=== PATIENT | female | born 1965 | race Asian ===

== ENCOUNTER 2023-01-01 07:42 | Outpatient (OUT) | payer OTHER, SELFPAY ==
[2023-01-01 08:12] LABS: Basophils Absolute Auto 0.1 10^3/uL (0.0-0.1); Basophils Percent Auto 0.7 % (0.2-2.0); Eosinophils Absolute Auto 0.2 10^3/uL (0.0-0.7); Eosinophils Percent Auto 3.3 % (0.9-7.0); Hematocrit 38.3 % (36.0-48.0); Hemoglobin 12.9 g/dL (12.0-16.0); Immature Granulocytes Abs Auto 0.02 10^3/uL (0.00-0.03); Immature Granulocytes Pct Auto 0.3 % (0.0-0.5); Lymphocytes Absolute Auto 2.2 10^3/uL (1.2-3.8); Lymphocytes Percent Auto 32.2 % (20.5-60.0); Mean Corpuscular HGB Conc 33.7 g/dL (29.9-35.2); Mean Corpuscular Hemoglobin 28.5 pg (26.7-34.0); Mean Corpuscular Volume 84.5 fL (81.0-99.0); Mean Platelet Volume 10.2 fL (9.5-13.5); Monocytes Absolute Auto 0.7 10^3/uL (0.3-0.8); Monocytes Percent Auto 10.6 % (1.7-12.0); Neutrophils Absolute Auto 3.6 10^3/uL (1.4-6.5); Neutrophils Percent Auto 52.9 % (43.0-75.0); Platelet Count 297 10^3/uL (150-450); Red Blood Count 4.53 10^6/uL (4.20-5.40); Red Cell Distribution Width 13.3 % (11.0-15.0); White Blood Count 6.7 10^3/uL (4.0-11.0)
[2023-01-01 08:31] LABS: Erythrocyte Sedimentation Rate 16 mm/hr (<=30)
[2023-01-01 08:58] LABS: Alanine Aminotransferase 21 U/L (14-59); Albumin Globulin Ratio 0.9; Albumin Level 3.7 g/dL (3.4-5.0); Alkaline Phosphatase 125 U/L (46-116); Aspartate Amino Transferase 22 U/L (15-37); Bilirubin Direct 0.1 mg/dL (0.0-0.2); Bilirubin Total 0.2 mg/dL (0.2-1.0); Estimated GFR (African America 59 (>=60); Estimated GFR (Non-African Ame 49 (>=60); Total Protein 7.7 g/dL (6.4-8.2)
== END 2023-01-01 07:43 ==
LOC: LAB 07:47
PROVIDERS: PCP Family Medicine
DX: M05.79 Rheumatoid arthritis with rheumatoid factor of multiple sites without organ or systems involvement (principal); Z79.899 Other long term (current) drug therapy
CPT/HCPCS: 36415; 80076; 82565; 85025; 85652

== ENCOUNTER 2023-01-28 07:48 | Outpatient (OUT) | payer OTHER, SELFPAY ==
--- NOTE | 2023-01-28 07:52 | US_ITS ---
The [address] [address] Patient Name: SYLVIA MCCRARY MRN: [id number] date: 1965 Sex: F Assigned Patient Location: US Current Patient Location: US Accession/Order Number: [id number] Exam Date: 01/28/2023 08:00 Report Date: 01/28/2023 10:46 At the request of: KEHINDE PACHECO Procedure: US renal BI EXAMINATION: US renal BI HISTORY: Overactive Bladder N32.81 COMPARISON: No relevant comparison available. TECHNIQUE: Ultrasound examination was performed of the kidneys and urinary bladder. FINDINGS: RIGHT KIDNEY: No evidence of pelvocaliectasis, mass, or calculi. Normal renal cortical parenchymal echogenicity. Color Doppler demonstrates blood flow within the kidney. Kidney: 9.9 x 4.2 x 4.4 cm LEFT KIDNEY: No evidence of pelvocaliectasis, mass, or calculi. Normal renal cortical parenchymal echogenicity. Color Doppler demonstrates blood flow within the kidney. Kidney: 8.7 x 4.3 x 5.2 cm BLADDER: No visible wall thickening, mass, or calculi. IMPRESSION: 1. Normal ultrasound appearance of the kidneys and urinary bladder. No specific findings to account for patient's symptoms. Electronically authenticated by: ORLIN PANTOJA Date: 01/28/2023 10:46
== END 2023-01-28 07:49 | disposition home or self-care (01) ==
LOC: US 07:48
PROVIDERS: PCP Family Medicine; Visit Provider Urology
DX: N32.81 Overactive bladder (principal); R39.14 Feeling of incomplete bladder emptying
CPT/HCPCS: 76775

== ENCOUNTER 2023-02-26 07:40 | Outpatient (OUT) | payer OTHER, SELFPAY ==
[2023-02-26 08:08] LABS: Basophils Absolute Auto 0.1 10^3/uL (0.0-0.1); Basophils Percent Auto 0.8 % (0.2-2.0); Eosinophils Absolute Auto 0.4 10^3/uL (0.0-0.7); Eosinophils Percent Auto 3.9 % (0.9-7.0); Hematocrit 35.8 % (36.0-48.0); Hemoglobin 12.1 g/dL (12.0-16.0); Immature Granulocytes Abs Auto 0.03 10^3/uL (0.00-0.03); Immature Granulocytes Pct Auto 0.3 % (0.0-0.5); Lymphocytes Absolute Auto 2.5 10^3/uL (1.2-3.8); Lymphocytes Percent Auto 27.9 % (20.5-60.0); Mean Corpuscular HGB Conc 33.8 g/dL (29.9-35.2); Mean Corpuscular Hemoglobin 28.6 pg (26.7-34.0); Mean Corpuscular Volume 84.6 fL (81.0-99.0); Mean Platelet Volume 10.1 fL (9.5-13.5); Monocytes Percent Auto 11.3 % (1.7-12.0); Neutrophils Percent Auto 55.8 % (43.0-75.0); Platelet Count 266 10^3/uL (150-450); Red Blood Count 4.23 10^6/uL (4.20-5.40); White Blood Count 8.9 10^3/uL (4.0-11.0)
[2023-02-26 08:20] LABS: Erythrocyte Sedimentation Rate 15 mm/hr (<=30)
[2023-02-26 08:29] LABS: Alanine Aminotransferase 19 U/L (14-59); Albumin Level 3.6 g/dL (3.4-5.0); Alkaline Phosphatase 124 U/L (46-116); Aspartate Amino Transferase 13 U/L (15-37); Bilirubin Direct 0.1 mg/dL (0.0-0.2); Bilirubin Total 0.2 mg/dL (0.2-1.0); Estimated GFR (African America 55 (>=60); Estimated GFR (Non-African Ame 46 (>=60); Globulin 3.5 g/dL; Total Protein 7.1 g/dL (6.4-8.2)
== END 2023-02-26 07:41 | disposition home or self-care (01) ==
PROVIDERS: PCP Family Medicine; Visit Provider Internal Medicine Rheumatology
DX: M05.79 Rheumatoid arthritis with rheumatoid factor of multiple sites without organ or systems involvement (principal); Z79.899 Other long term (current) drug therapy
CPT/HCPCS: 36415; 80076; 82565; 85025; 85652

== ENCOUNTER 2023-04-30 07:43 | Outpatient (OUT) | payer OTHER, SELFPAY ==
[2023-04-30 08:18] LABS: Basophils Absolute Auto 0.1 10^3/uL (0.0-0.1); Basophils Percent Auto 0.8 % (0.2-2.0); Eosinophils Absolute Auto 0.3 10^3/uL (0.0-0.7); Eosinophils Percent Auto 2.5 % (0.9-7.0); Immature Granulocytes Abs Auto 0.03 10^3/uL (0.00-0.03); Immature Granulocytes Pct Auto 0.3 % (0.0-0.5); Lymphocytes Absolute Auto 2.9 10^3/uL (1.2-3.8); Lymphocytes Percent Auto 28.4 % (20.5-60.0); Mean Corpuscular HGB Conc 33.3 g/dL (29.9-35.2); Mean Corpuscular Volume 87.1 fL (81.0-99.0); Mean Platelet Volume 10.2 fL (9.5-13.5); Monocytes Absolute Auto 0.9 10^3/uL (0.3-0.8); Monocytes Percent Auto 8.5 % (1.7-12.0); Neutrophils Absolute Auto 6.1 10^3/uL (1.4-6.5); Neutrophils Percent Auto 59.5 % (43.0-75.0); Platelet Count 318 10^3/uL (150-450); Red Blood Count 4.48 10^6/uL (4.20-5.40); White Blood Count 10.2 10^3/uL (4.0-11.0)
[2023-04-30 08:31] LABS: Erythrocyte Sedimentation Rate 17 mm/hr (<=30)
[2023-04-30 08:35] LABS: Alanine Aminotransferase 16 U/L (14-59); Albumin Level 3.7 g/dL (3.4-5.0); Alkaline Phosphatase 123 U/L (46-116); Aspartate Amino Transferase 26 U/L (15-37); Bilirubin Direct <0.1 mg/dL (0.0-0.2); Bilirubin Total 0.3 mg/dL (0.2-1.0); Estimated GFR (African America >60 (>=60); Estimated GFR (Non-African Ame 51 (>=60); Globulin 3.8 g/dL; Total Protein 7.5 g/dL (6.4-8.2)
== END 2023-04-30 07:44 | disposition home or self-care (01) ==
LOC: LAB 07:46
PROVIDERS: PCP Family Medicine; Visit Provider Internal Medicine Rheumatology
DX: M05.79 Rheumatoid arthritis with rheumatoid factor of multiple sites without organ or systems involvement (principal); Z79.899 Other long term (current) drug therapy
CPT/HCPCS: 36415; 80076; 82565; 85025; 85652

== ENCOUNTER 2023-07-02 07:35 | Outpatient (OUT) | payer OTHER, SELFPAY ==
[2023-07-02 08:00] LABS: Basophils Absolute Auto 0.1 10^3/uL (0.0-0.1); Basophils Percent Auto 0.9 % (0.2-2.0); Eosinophils Absolute Auto 0.3 10^3/uL (0.0-0.7); Eosinophils Percent Auto 3.3 % (0.9-7.0); Hematocrit 38.3 % (36.0-48.0); Hemoglobin 12.5 g/dL (12.0-16.0); Immature Granulocytes Abs Auto 0.01 10^3/uL (0.00-0.03); Immature Granulocytes Pct Auto 0.1 % (0.0-0.5); Lymphocytes Absolute Auto 2.6 10^3/uL (1.2-3.8); Lymphocytes Percent Auto 29.6 % (20.5-60.0); Mean Corpuscular HGB Conc 32.6 g/dL (29.9-35.2); Mean Corpuscular Hemoglobin 28.4 pg (26.7-34.0); Mean Platelet Volume 10.4 fL (9.5-13.5); Monocytes Absolute Auto 0.8 10^3/uL (0.3-0.8); Monocytes Percent Auto 9.5 % (1.7-12.0); Neutrophils Absolute Auto 4.9 10^3/uL (1.4-6.5); Neutrophils Percent Auto 56.6 % (43.0-75.0); Platelet Count 287 10^3/uL (150-450); Red Cell Distribution Width 13.7 % (11.0-15.0); White Blood Count 8.7 10^3/uL (4.0-11.0)
[2023-07-02 08:26] LABS: Alanine Aminotransferase 17 U/L (14-59); Albumin Level 3.7 g/dL (3.4-5.0); Alkaline Phosphatase 129 U/L (46-116); Aspartate Amino Transferase 19 U/L (15-37); Bilirubin Direct <0.1 mg/dL (0.0-0.2); Bilirubin Total 0.2 mg/dL (0.2-1.0); Estimated GFR (African America >60 (>=60); Estimated GFR (Non-African Ame 55 (>=60); Globulin 3.6 g/dL; Total Protein 7.3 g/dL (6.4-8.2)
[2023-07-02 08:47] LABS: Erythrocyte Sedimentation Rate 12 mm/hr (<=30)
== END 2023-07-02 07:36 | disposition home or self-care (01) ==
PROVIDERS: PCP Family Medicine; Visit Provider Internal Medicine Rheumatology
DX: M05.79 Rheumatoid arthritis with rheumatoid factor of multiple sites without organ or systems involvement (principal); Z79.899 Other long term (current) drug therapy
CPT/HCPCS: 36415; 80076; 82565; 85025; 85652

== ENCOUNTER 2023-08-14 08:41 | Outpatient (OUT) | payer OTHER, SELFPAY ==
--- NOTE | 2023-08-14 08:44 | MM_ITS ---
Patient Name: SYLVIA MCCRARY MR#: [id number] : 1965 Exam Date: 08/14/2023 Ordering Doctor: DR JOSEFA MARTINEZ M.D. RADIOLOGY REPORT PROCEDURE: MM TOMOSYNTHESIS SCREENING BI COMPARISON: MG MAMM SCREEN LJ W CAD, 01/07/2017. MG MAMM SCREEN LJ W CAD, 01/24/2018. INDICATIONS: Screening Calculator Name NCI Breast Cancer Risk Assessment Tool 5 Year Breast Cancer Risk 1.20% Lifetime Breast Cancer Risk 5.20% Personal Breast Cancer No Personal Ovarian Cancer No Treatments None Family Cancers Aunt-maternal with colon cancer at age ~40. LOCATION: [facility] BREAST COMPOSITION: Heterogeneously dense,which may obscure small masses. FINDINGS: DIAGNOSTIC CATEGORY 1--NEGATIVE. NO CHANGE FROM COMPARISON ASSESSMENT. Scattered benign-appearing calcifications are present. Scattered benign-appearing lymph nodes are present. RIGHT BREAST: No significant suspicious finding. LEFT BREAST: No significant suspicious finding. RECOMMENDATIONS: ROUTINE MAMMOGRAM AND CLINICAL EVALUATION IN 12 MONTHS. PLEASE NOTE: A NORMAL MAMMOGRAM DOES NOT EXCLUDE THE POSSIBILITY OF BREAST CANCER. A CLINICALLY SUSPICIOUS PALPABLE LUMP SHOULD BE BIOPSIED. Dictated by: Chip Antonio MD on 08/14/2023 at 09:46 Approved by: Chip Antonio MD on 08/14/2023 at 09:48
--- OUTSIDE RECORDS SUMMARY | 2023-08-14 08:56 | XMS_ITS | CCD ---
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 Name Role Phone BOB BROWN Unavailable Unavailable BOB BROWN Unavailable Unavailable MICHELLE, RUGEN Unavailable Unavailable BROWN, CHRISTOPHER Unavailable Unavailable SKIE, OREN Unavailable Unavailable SKIE, OREN Unavailable Unavailable MICHELLE, RUGEN Unavailable Unavailable MICHELLE, RUGEN Unavailable Unavailable ID Unavailable Unavailable SKIE, OREN Unavailable Unavailable ID Unavailable Unavailable PITRODA, TENNILLE Unavailable Unavailable PHYSICIAN, DEFAULT Unavailable Unavailable PHYSICIAN, DEFAULT Unavailable Unavailable MICHELLE, RUGEN Unavailable Unavailable PHYSICIAN, DEFAULT Unavailable Unavailable PHYSICIAN, DEFAULT Unavailable Unavailable MICHELLEYANIV MurryEN Unavailable Unavailable Josefa Martinez Primary Care Provider Josefa Martinez Primary Care Provider Josefa Martinez Primary Care Provider Josefa Martinez MD Primary Care Provider [phone] Josefa Martinez MD Primary Care Provider Candi George Unavailable Josefa Martinez MD Primary Care Provider [phone] Josefa Martinez MD Primary Care Provider [phone] MD Josefa Martinez Primary Care Provider MD Josefa Martinez Attending Provider MIGUEL Benitez Attending Provider Josefa Martinez Primary Care Unavailable Giacomo Benitez Attending Unavailable Giacomo Benitez Admitting Unavailable Hymera, Rugen M Admitting Unavailable Hymera, Rugen M Attending Unavailable Michelle, Rugen M Primary Care Unavailable HALADAY, DR COLVIN Admitting Unavailable HALADAY, DR COLVIN Attending Unavailable MICHELLE, DR RIVERO Primary Care Unavailable HALADAY, DR COLVIN Consulting Unavailable HALADAY, DR COLVIN Admitting Unavailable HALADAY, DR COLVIN Attending Unavailable MICHELLE, DR RIVERO Primary Care Unavailable HALADAY, DR COLVIN Consulting Unavailable CHABANCANDI Referring Unavailable MICHELLE, RUGEN M Primary Care Unavailable MICHELLE, RUGEN M Primary Care Unavailable HALADAY, VINICIUS Heredia Referring Unavailable MICHELLE, RUGEN M Primary Care Unavailable HALADAY, VINICIUS Heredia Referring Unavailable MICHELLE, RUGEN M Primary Care Unavailable HALADAY, VINICIUS Heredia Referring Unavailable MICHELLE, RUGEN M Primary Care Unavailable Frank PACHECO Attending Unavailable Frank PACHECO Attending Unavailable Frank PACHECO Attending Unavailable JAKOB PRUITT Attending Unavailable EDMOND, SAMER Hi Attending Unavailable EDMOND, SAMER J Referring Unavailable ALGHOMANUEL CRUM Attending Unavailable AUGUSTOHOSKYLA MOHAMAD Admitting Unavailable EDMOND, DRUR J Attending Unavailable EDMOND, SAMER J Attending Unavailable EDMOND, SAMER J Referring Unavailable MICHELLE, RUGEN M Attending Unavailable LINK LOUISE Attending Unavailable Allergies Allergy Classification Reported Allergen(s) Allergy Type Date of Onset Reaction(s) Facility (3 sources) amoxicillin / clavulanate; Translations: [Augmentin] Drug Allergy 1 [facility] Repository (16 sources) Amoxicillin-Pot Clavulanate; Translations: [AMOXICILLIN-PO T CLAVULANATE] Propensity to adverse reactions to drug 3 [place], [place] (1 source) Amoxicillin / Clavulanate Drug Allergy rash [employer] Other (1 source) Amoxicillin; Translations: [amoxicillin] Drug Allergy [facility] Repository Medications Current Medications Medication Drug Class(es) Dates Sig (Normalized) Sig (Original) aspirin 81 mg oral tablet (15 sources) Platelet Aggregation Inhibitor, Nonsteroidal Anti-inflammatory Drug take 1 tablet by mouth once daily aspirin 81 MG tablet Take 81 mg by mouth daily. 0 Active Clover Low Strength 81 MG (1 source) take 1 tablet by mouth once daily carvedilol 6.25 mg oral tablet (16 sources) alpha-Adrenergic Joie, beta-Adrenergic Joie take 1 tablet by mouth twice daily at mealtime carvedilol (COREG) 6.25 MG tablet Take 6.25 mg by mouth 2 times daily (with meals). 0 Active ferrous sulfate 325 mg oral tablet (15 sources) take 1 tablet by mouth once daily at breakfast ferrous sulfate 325 (65 FE) MG tablet Take 325 mg by mouth daily (with breakfast). 0 Active hydroCHLOROthiazide 25 mg oral tablet (16 sources) Thiazide Diuretic take 1 tablet by mouth once daily hydrochlorothiazide (HYDRODIURIL) 25 MG tablet Take 25 mg by mouth daily. 0 Active hydroxychloroquine sulfate 200 mg oral tablet (16 sources) Antimalarial, Antirheumatic Agent take 1 tablet by mouth twice daily hydroxychloroquine (PLAQUENIL) 200 MG tablet Take 200 mg by mouth 2 times daily. 0 Active take 2 tablets by mouth once sunita ly at mealtime leflunomide 20 mg oral tablet (1 source) Antirheumatic Agent take 1 tablet by mouth every twenty-four hours lisinopril 20 mg oral tablet (16 sources) Angiotensin Converting Enzyme Inhibitor take 1 tablet by mouth once daily lisinopril (PRINIVIL;ZESTRIL) 20 MG tablet Take 20 mg by mouth daily. 0 Active loratadine 10 mg oral tablet (16 sources) take 1 tablet by mouth once daily loratadine (CLARITIN) 10 MG tablet Take 10 mg by mouth daily. 0 Active NIFEdipine 90 mg osmotic 24 hr extended release oral tablet (16 sources) Dihydropyridine Calcium Channel Joie NIFEdipine (PROCARDIA XL) 90 MG CR tablet Take 240 mg by mouth daily. 0 Active take 2 tablets by mouth once sunita ly omeprazole 20 mg delayed release oral capsule (16 sources) Proton Pump Inhibitor take 2 capsules by mouth once daily omeprazole (PRILOSEC) 20 MG capsule Take 40 mg by mouth daily. 0 Active take 1 capsule by mouth once sunita ly raNITIdine 150 mg oral tablet (15 sources) Histamine-2 Receptor Antagonist take 1 tablet by mouth once daily ranitidine (ZANTAC 150 MAXIMUM STRENGTH) 150 MG tablet Take 150 mg by mouth daily. 0 Active pulmonary hypertension tadalafil 20 mg oral tablet (16 sources) Phosphodiesterase 5 Inhibitor take 4 tablets by mouth once daily Tadalafil, PAH, (ADCIRCA) 20 MG tablet Take 80 mg by mouth daily. 0 Active take 2 tablets by mouth once sunita ly take 4 tablets by mouth once sunita ly Tadalafil, PAH, (ADCIRCA) 20 MG tablet Take 80 mg by mouth daily. 0 Active Problems Active Problems Problem Classification Problem Date Documented Date Episodic/Chronic Acquired foot deformities (1 source) Hallux valgus (acquired), left foot; Translations: [Hallux valgus (acquired), left foot] Onset: 07-25-2022 Chronic Calculus of urinary tract (1 source) Kidney stone; Translations: [Kidney stone] Episodic Coronary atherosclerosis and other heart disease (2 sources) Atherosclerotic heart disease of [place] coronary artery without angina pectoris; Translations: [Atherosclerotic heart disease of [place] coronary artery without angina pectoris] Onset: 09-21-2022 Chronic Esophageal disorders (1 source) Gastro-esophageal reflux disease without esophagitis; Translations: [GASTRO-ESOPHAGEAL REFLUX DISEASE WITHOUT ESOPHAGITIS] Onset: 04-15-2017 Chronic Essential hypertension (3 sources) Essential (primary) hypertension; Translations: [ESSENTIAL (PRIMARY) HYPERTENSION] Onset: 04-15-2017 Chronic External cause codes: Fall (1 source) Fall; Translations: [Fall, initial encounter] Genitourinary symptoms and ill-defined conditions (1 source) Urgent desire to urinate; Translations: [Urgency of urination] Episodic Osteoarthritis (5 sources) Primary osteoarthritis, left hand; Translations: [Secondary osteoarthritis, right hand] Onset: 02-13-2017 Chronic Other connective tissue disease (1 source) Metatarsalgia, right foot; Translations: [Metatarsalgia, right foot] Onset: 07-25-2022 Episodic Other lower respiratory disease (2 sources) Fibrosis of lung; Translations: [Pulmonary fibrosis, unspecified] Chronic Other lower respiratory disease (2 sources) Pulmonary fibrosis, unspecified; Translations: [Pulmonary fibrosis, unspecified] Onset: 12-19-2021 Resolved: 12-19-2021 Chronic Other upper respiratory disease (1 source) Other seasonal allergic rhinitis; Translations: [OTHER SEASONAL ALLERGIC RHINITIS] Onset: 04-15-2017 Chronic Pulmonary heart disease (5 sources) Other secondary pulmonary hypertension; Translations: [Secondary pulmonary hypertension] Onset: 04-15-2017 Resolved: 12-19-2021 Chronic Rheumatoid arthritis and related disease (7 sources) Rheumatoid arthritis, unspecified; Translations: [Rheumatoid arthritis with rheumatoid factor of multiple sites without organ or systems involvement] Onset: 02-13-2017 Chronic Superficial injury; contusion (1 source) Abrasion of scalp; Translations: [Abrasion of scalp, initial encounter] Episodic Systemic lupus erythematosus and connective tissue disorders (7 sources) Systemic sclerosis, unspecified; Translations: [Systemic sclerosis] Onset: 04-15-2017 Resolved: 12-19-2021 Chronic Unclassified (2 sources) Unknown / UNK(Unknown) Onset: 02-13-2017 Unclassified (1 source) Encounter for other preprocedural examination; Translations: [Encounter for other preprocedural examination] Onset: 08-13-2022 Unclassified (1 source) Encounter for preprocedural cardiovascular examination; Translations: [Encounter for preprocedural cardiovascular examination] Onset: 07-25-2022 Past or Other Problems Problem Classification Problem Date Documented Date Episodic/Chronic Joint disorders and dislocations; trauma-related (4 sources) Dislocation of interphalangeal joint of left thumb, initial encounter; Translations: [Recurrent dislocation, left finger] Onset: 02-13-2017 Episodic Other aftercare (1 source) jail (current) use of aspirin; Translations: [DETENTION (CURRENT) USE OF ASPIRIN] Onset: 04-15-2017 Episodic Other aftercare (3 sources) Other manager long term care (current) drug therapy; Translations: [OTH DETENTION CURRENT DRUG THERAPY] Onset: 04-11-2022 Episodic Other connective tissue disease (1 source) Pain in right foot; Translations: [Pain in right foot] Onset: 05-20-2022 Episodic Other lower respiratory disease (2 sources) Shortness of breath; Translations: [Shortness of breath] Onset: 09-21-2022 Episodic Screening or history of mental health and substance abuse (1 source) Personal history of nicotine dependence; Translations: [PERSONAL HISTORY OF NICOTINE DEPENDENCE] Onset: 04-15-2017 Episodic Results Test Name Value Interpretation Reference Range Facility Office Visiton 05-14-2023 Follow-up visit [id number] Sylvia Zavala 1965 F Date Provider Department Center 05/14/2023 Mia-JAKOB PRUITT [facility] Family History Problem Relation Age of Onset Hypertension Mother Hypertension Father Family Status - Relation Status Age at Mother Father Level of Service:[id number] ID OFFICE/OUTPATIENT ESTABLISHED MOD MDM 30-39 MIN Normal [facility] Office Visiton 02-05-2023 Follow-up visit [id number] MeganPaolo westonvicky 1965 F Date Provider Department Center 02/05/2023 JAKOB PARIS KEVIN [facility] Family History Problem Relation Age of Onset Hypertension Mother Hypertension Father Family Status - Relation Status Age at Mother Father Level of Service:[id number] ID OFFICE/OUTPATIENT ESTABLISHED MOD MDM 30-39 MIN Normal [facility] RAD - Ultrasound Reporton RAD - Ultrasound Report [id number] Normal [facility] Ambulatory Visit Summaryon 0 02-04-2023 Ambulatory Visit Summary SYLVIA BASS :1965 Visit Date:02/04/2023 Ambulatory Visit Instructions Your Diagnosis OAB (overactive bladder) Incomplete bladder emptying Personal history of kidney stones Tests Performed Urnls Dip Stick Auto w/o Microscopy POC [id number] Your Care Team Attending Physician - JUNIOR JIMENEZ, Frank Lea Primary Care Physician - MICHELLE JIMENEZ, JOSEFA Chapman This Is Your Medications List tolterodine (tolterodine 4 mg Cap-ER) Contact prescribing physician if questions or concerns NIFEdipine (Procardia) aspirin (aspirin 81 mg Chew Tab) carbonyl iron (Iron Chews) carvedilol celecoxib esomeprazole (Nexium) furosemide (furosemide 40 mg Tab) hydrochlorothiazide hydroxychloroquine lisinopril (lisinopril 10 mg Tab) macitentan (Opsumit 10 mg oral tablet) ranitidine (Zantac) sulfasalazine (sulfasalazine 500 mg oral enteric coated tablet) Procedures Performed Injection of therapeutic substance into bladder wall (03/28/2021), Cystoscopic removal of ureteric stent (04/22/2018), Cystoscopic insertion of ureteric stent (04/03/2018), Bunion, Carpal tunnel release, section, Colonoscopy, Foot, Tubal ligation. Discharge Vitals Heart Rate (Peripheral) 73 Respiratory Rate 16 Blood Pressure 117/84 Height 152 cm Height 60 in Weight 76 kg Weight 167.2 lb BMI 32.89 What to do next Scheduled Follow-Up Appointments Saturday 8:15 AM EDT With: JUNIOR JIMENEZ, Frank Lea Where: [facility] [place] [facility] Patient Educationon 02-05-20 23 Patient Education Obstetrics and Gynecology Acute Urinary Retention, Female Acute urinary retention is a condition in which a person is unable to pass urine or can only pass a little urine. This condition can happen suddenly and last for a short time. If left untreated, it can become long-term (chronic) and result in kidney damage or other serious complications. What are the causes? This condition may be caused by: ? Obstruction or narrowing of the tube that drains the bladder (urethra). This may be caused by surgery, problems with nearby organs, or injury to the bladder or urethra. ? Problems with the nerves in the bladder. ? Pelvic organ prolapse. ? Tumors in the area of the pelvis, bladder, or urethra. ? Vaginal childbirth. ? Bladder or urinary tract infection. ? Constipation. ? Certain medicines. What increases the risk? This condition is more likely to develop in women over age 50. Other chronic health conditions can increase the risk of acute urinary retention. These include: ? Diseases such as multiple sclerosis. ? Spinal cord injuries. ? Diabetes. ? Degenerative cognitive conditions, such as delirium or dementia. ? Psychological conditions. A woman may hold her urine due to trauma or because she does not want to use the bathroom. ? History of preexisting urinary retention. ? History of prior pelvic surgery, incontinence surgery, or radical pelvic surgery. What are the signs or symptoms? Symptoms of this condition include: ? Trouble urinating. ? Pain in the lower abdomen. How is this diagnosed? This condition is diagnosed based on a physical exam and your medical history. You may also have other tests, including: ? An ultrasound of the bladder or kidneys or both. ? Blood tests. ? A urine analysis. ? Additional tests may be needed, such as a CT scan, MRI, and kidney or bladder function tests. How is this treated? Treatment for this condition may include: ? Medicines. ? Placing a thin, sterile tube (catheter) into the bladder to drain urine out of the body. This is called an indwelling urinary catheter. After it is inserted, the catheter is held in place with a small balloon that is filled with sterile water. Urine drains from the catheter into a collection bag outside of the body. ? Behavioral therapy. ? Treatment for other conditions. If needed, you may be treated in the hospital for kidney function problems or to manage other complications. Follow these instructions at home: Medicines ? Take [id number] and prescription medicines only as told by your health care provider. Avoid certain medicines, such as decongestants, antihistamines, and some prescription medicines. Do not take any medicine unless your health care provider approves. ? If you were prescribed an antibiotic medicine, take it as told by your health care provider. Do not stop using the antibiotic even if you start to feel better. General instructions ? Do not use any products that contain nicotine or tobacco. These products include cigarettes, chewing tobacco, and vaping devices, such as e-cigarettes. If you need help quitting, ask your health care provider. ? Drink enough fluid to keep your urine pale yellow. ? If you have an indwelling urinary catheter, follow the instructions from your health care provider. ? Monitor any changes in your symptoms. Tell your health care provider about any changes. ? If instructed, monitor your blood pressure at home. Report changes as told by your health care provider. ? Keep all follow-up visits. This is important. Contact a health care provider if: ? You have uncomfortable bladder contractions that you cannot control (spasms). ? You leak urine with the spasms. Get help right away if: ? You have chills or a fever. ? You have blood in your urine. ? You have a catheter and the following happens: ? Your catheter stops draining urine. ? Your catheter falls out. Summary ? Acute urinary retention is a condition in which a person is unable to pass urine or can only pass a little urine. If left untreated, this can result in kidney damage or other serious complications. ? One cause of this condition may be obstruction or narrowing of the tube that drains the bladder (urethra). This may be caused by surgery, problems with nearby organs, or injury to the bladder or urethra. ? Treatment may include medicines and placement of an indwelling urinary catheter. ? Monitor any changes in your symptoms. Tell your health care provider about any changes. This information is not intended to replace advice given to you by your health care provider. Make sure you discuss any questions you have with your health care provider. Document Revised: 04/05/2021 Document Reviewed: 04/05/2021 [employer] Patient Education ? [address] [employer] [address] [facility] Urology Office/Clinic Noteon 02-04-2023 Urology Office/Clinic Note Chief Complaint 1yr SUSAN HPI Staff 1 year f/u with renal US and PVR. Previous dx of OAB and incomplete bladder emptying. *Tolterodine 4mg 2 tabs QD therapy. SUSAN 01/28/23 Denies UTI since last encounter. Denies pain, burning and blood in urine. Voiding q2hrs during the day, 2x/night. Depends on liquid intake. Minimal leaking, with urgency. Does feel empty after voiding. PVR today 47ml History of Present Illness Tests reviewed: reviewed UA, renal US I have reviewed the previous health record information and history for this patient from Dr. Pacheco. I have reviewed and verified the staff HPI to be accurate for this encounter. There have been no associated fever, chills, flank pain, or blood in the urine. Denies any urinary infections since last encounter. Review of Systems PHQ Score Initial Depression Screen Score: 0 ROS - Provider Constitutional: denies weight loss, denies hot flashes. Eyes: denies eye problems. Gastrointestinal: denies nausea, denies vomiting. Cardiovascular: denies chest pain or angina. Integumentary: no dryness Musculoskeletal: denies musculoskeletal symptoms. ENMT: denies otolaryngeal symptoms. Respiratory: no shortness of breath. Heme/Lymph: denies easy bleeding tendency, denies easy bruising tendency. Psychiatric: no confusion, no anxiety. Genitourinary: See HPI. Physical Exam Vitals & Measurements HR: 73(Peripheral) RR: 16 BP: 117/84 HT: 60 in HT: 152 cm WT: 76 kg WT: 167.2 lb BMI: 32.89 General Appearance: alert , no acute distress, well nourished, well developed female. Genitourinary: bladder nonpalpable, no flank pain. Assessment/Plan 1. OAB (overactive bladder) (N32.81: Overactive bladder) S/p Botox 03/28/21. Pt continues taking Tolterodine ER 4mg 2 tabs qd. Pt will call for refills. no need for changing her dose at this point. UA today shows small leukocytes. Pt states she has some leakage when holding her urine too long. Pt to start timed voids q2-3hr during waking hours whether the urge to void is present or not. -Follow up in 1 year or sooner if needed. Pt understands and agrees with plan. All questions/concerns were discussed. Pt to call the office if she encounters any issues prior. Pt acknowledges understanding. 2. Incomplete bladder emptying (R33.9: Retention of urine, unspecified) Pt feels she is emptying well but she will reposition herself and push on her bladder to fully empty. PVR today 47mL -Timed voids 3. Personal history of kidney stones (Z87.442: Personal history of urinary calculi) Last stone episode was in 2018. Most recent KUB in 02/21/21 - negative. Renal US 01/28/23 - negative for stones and hydro. -Continue increased water intake and add clear soda. Follow-up With When Contact Information JUNIOR JIMENEZ, REYES Connor In 1 year [facility] [address], [place] [address] [phone] Additional Instructions: Patient Education Acute Urinary Retention, Female I, Oneyda Vallecillo, personally scribed for Dr. Pacheco on 02/04/2023 10:16:46. . Documentation recorded by the scribOneyda perry, accurately reflects the services(s) I performed and decisions made by me. Authenticated by Dr. Pacheco on 02/04/2023 10:18:56. Problem List/Past Medical History Ongoing Anemia Anticoagulant long-term use BMI 33.0-33.9,adult GERD (gastroesophageal reflux disease) Heart disease Incomplete bladder emptying OAB (overactive bladder) Personal history of kidney stones Pulmonary hypertension Rheumatoid arthritis Scleroderma Seasonal allergies Ureteral stricture Urge incontinence Historical No qualifying data Procedure/Surgical History Injection of therapeutic substance into bladder wall (03/28/2021), Cystoscopic removal of ureteric stent (04/22/2018), Cystoscopic insertion of ureteric stent (04/03/2018), Bunion, Carpal tunnel release, section, Colonoscopy, Foot, Tubal ligation. Medications aspirin 81 mg Chew Tab carvedilol celecoxib furosemide 40 mg Tab hydrochlorothiazide hydroxychloroquine Iron Chews lisinopril 10 mg Tab Nexium Opsumit 10 mg oral tablet, 10 mg= 1 tab(s), Oral, Daily Procardia sulfasalazine 500 mg oral enteric coated tablet tolterodine 4 mg Cap-ER, 8 mg= 2 cap(s), Oral, Daily, 11 refills Zantac Allergies Augmentin (Rash) amoxicillin (Rash) Social History Tobacco Former smoker, quit more than 30 days ago Tobacco Use:. Never Smokeless Tobacco Use:. Cigarettes, Started age 21.0 Years. Stopped age 44 Years. Household tobacco concerns: No. Yes, 02/04/2023 Family History Hyperlipidemia: Father. Hypertension: Mother and Father. Primary malignant neoplasm of female genital organ: Mother. Immunizations Vaccine Date Status Comments influenza virus vaccine, inactivated 05/22/2022 Recorded SARS-CoV-2 (COVID-19) mRNA-1273 vaccine 08/16/2021 Recorded 2023-02-04: TPVALL influenza virus vaccine, i (more content not included)... Normal [facility] Comment on above: Result Comment: Elec tronically Signed By: Frank PACHECO MD\.br\Date and Time Signed: 02/04/23 10:19 EDT\.br\Electronically Co-Signed By: Oneyda Vallecillo.br\Date and Time Co-Signed: 02/04/23 10:[address] CHEST WO CONTRASTon 12-12 CT CHEST WO CONTRAST EXAMINATION: CT OF THE CHEST WITHOUT CONTRAST 12/12/2022 8:20 am TECHNIQUE: CT of the chest was performed without the administration of intravenous contrast. Multiplanar reformatted images are provided for review. Automated exposure control, iterative reconstruction, and/or weight based adjustment of the mA/kV was utilized to reduce the radiation dose to as low as reasonably achievable. COMPARISON: CT chest 11/27/2021. HISTORY: ORDERING SYSTEM PROVIDED HISTORY: Pulmonary fibrosis (HCC) TECHNOLOGIST PROVIDED HISTORY: HIGH RESOLUTION FINDINGS: LOWER NECK: Unremarkable thyroid gland. No enlarged lymph nodes. CHEST: Mediastinum: Thoracic aorta has normal caliber. Stable dilated main pulmonary artery measuring up to 3.3 cm. No enlarged mediastinal lymph nodes. The esophagus is unremarkable. Heart: Normal heart size. No pericardial thickening. Moderate coronary artery calcifications. Pleural Space: No pleural effusion or pneumothorax. Lungs: The central airways are patent. No consolidation. Mild posterior-basal predominant reticular opacities in bilateral lower lobes, stable since CT 11/27/2021. No evidence of architectural distortion, cysts, or ground-glass opacities. No suspicious nodule identified. UPPER ABDOMEN: A few scattered hypodense lesions in the liver, likely cysts. Colonic diverticulosis. MUSCULOSKELETAL: No acute osseous abnormality. IMPRESSION: 1. Stable posterior-basal predominant reticular opacities in bilateral lower lobes, suggesting early pulmonary fibrosis. Recommend continued pulmonology follow-up. 2. Dilated main pulmonary artery, likely associated with pulmonary hypertension. Interpreted by: Shar Chery MD Signed by: Shar Chery MD 12/12/22 Final result [facility] 36on 11-22-2022 36 New Rx sent to [facility] specialty pharmacy. [facility] Documentationon 11-22-2022 Documentation [id number] Aldenrico,1965 F Date Provider Department Center 11/22/2022 ACROLA AMEZCUA Family History Problem Relation Age of Onset Hypertension Mother Hypertension Father Family Status - Relation Status Age at Mother Father Reason for Visit and Comments: Specialty Pharmacy Note: tadalafil Prescription [Other] [facility] 36on 11-21-2022 36 Pharmacy called and stated that the Cialis will need a prior auth, and he wanted to inform you that the medication is for males. [facility] Telephoneon 11-21-2022 Telephone [id number] Aldarom,1965 F Date Provider Department Center 11/21/2022 JAOKB [place] Family History Problem Relation Age of Onset Hypertension Mother Hypertension Father Family Status - Relation Status Age at Mother Father [facility] Office Visiton 11-09-2022 Follow-up visit [id number] Michelle Aguilar,1965 F Date Provider Department Center 11/09/2022 JAKOB [place] Family History Problem Relation Age of Onset Hypertension Mother Hypertension Father Family Status - Relation Status Age at Mother Father Level of Service:20094 ID OFFICE/OUTPATIENT ESTABLISHED MOD MDM 30-39 MIN [facility] CBC AUTO DIFFon 11-06-2022 BASO # 0.1 103/ul Normal 0.0-0.1 [facility] Comment on above: Performed By: #### C BC #### [facility] [address] [place] [address] Dr. Stefany Corral Basophils/100 WBC (Bld) 0.7 % Normal 0.2-2.0 [facility] Comment on above: Performed By: #### C BC #### [facility] [address] [place] [address] Dr. Stefany Corral EO # 0.3 103/ul Normal 0.0-0.7 [facility] Comment on above: Performed By: #### C BC #### [facility] [address] [place] [address] Dr. Stefany Corral Eosinophils/100 WBC (Bld) 3.0 % Normal 0.9-7.0 [facility] Comment on above: Performed By: #### C BC #### [facility] [address] [place] [address] Dr. Stefany Corral Erythrocyte distribution width (RBC) [Ratio] 15.1 % Critically high 11.0-15.0 [facility] Comment on above: Performed By: #### C BC #### [facility] [address] [place] [address] Dr. Stefany Corral Hematocrit (Bld) [Volume fraction] 36.2 % Normal 36.0-48.0 [facility] Comment on above: Performed By: #### C BC #### [facility] [address] [place] [address] Dr. Stefany Corral Hemoglobin (Bld) [Mass/Vol] 12.0 g/dL Normal 12.0-16.0 [facility] Comment on above: Performed By: #### C BC #### [facility] [address] [place] [address] Dr. Stefany Corral IG # 0.03 10e3/ul Normal 0.00-0.03 [facility] Comment on above: Performed By: #### C BC #### [facility] [address] [place] [address] Dr. Stefany Corral IG % 0.3 % Normal 0.0-0.5 [facility] Comment on above: Performed By: #### C BC #### [facility] [address] [address] [address] Stefany Corral LYMPH # 2.4 103/ul Normal 1.2-3.8 [facility] Comment on above: Performed By: #### C BC #### [facility] [address] [address] [address] Stefany Corral Lymphocytes/100 WBC (Bld) 27.4 % Normal 20.5-60.0 [facility] Comment on above: Performed By: #### C BC #### [facility] [address] [address] [address] Stefany Corral MANUAL DIFF REQ NO Normal [facility] Comment on above: Performed By: #### C BC #### [facility] [address] [place] [address] Dr. Stefany Corral MCH (RBC) [Entitic mass] 28.4 pg Normal 26.7-34.0 [facility] Comment on above: Performed By: #### C BC #### [facility] [address] [place] [address] Dr. Stefany Corral MCHC (RBC) [Mass/Vol] 33.1 g/dL Normal 29.9-35.2 [facility] Comment on above: Performed By: #### C BC #### [facility] [address] [place] [address] Dr. Stefany Corral MCV (RBC) [Entitic vol] 85.6 fL Normal 81.0-99.0 [facility] Comment on above: Performed By: #### C BC #### [facility] [address] [address] [address] Stefany Corral MONO # 1.0 103/ul Critically high 0.3-0.8 [facility] Comment on above: Performed By: #### C BC #### [facility] [address] [place] [address] Dr. Stefany Corral Monocytes/100 WBC (Bld) 11.2 % Normal 1.7-12.0 [facility] Comment on above: Performed By: #### C BC #### [facility] [address] [place] [address] Dr. Stefany Corral NEUT # 5.0 103/ul Normal 1.4-6.5 [facility] Comment on above: Performed By: #### C BC #### [facility] [address] [place] [address] Dr. Stefany Corral Neutrophils/100 WBC (Bld) 57.4 % Normal 43.0-75.0 [facility] Comment on above: Performed By: #### C BC #### [facility] [address] [place] [address] Dr. Stefany Corral Platelet mean volume (Bld) [Entitic vol] 10.0 fL Normal 9.5-13.5 [facility] Comment on above: Performed By: #### C BC #### [facility] [address] [place] [address] Dr. Stefany Corral PLT 321 103/ul Normal 150-450 [facility] Comment on above: Performed By: #### C BC #### [facility] [address] [place] [address] Dr. Stefany Corral RBC 4.23 106/ul Normal 4.20-5.40 [facility] Comment on above: Performed By: #### C BC #### [facility] [address] [place] [address] Dr. Stefany Corral WBC 8.6 103/ul Normal 4.0-11.0 [facility] Comment on above: Performed By: #### C BC #### [facility] [address] [place] [address] Dr. Stefany Corral CREATININEon 11-06-2022 Creatinine [Mass/Vol] 1.14 mg/dL Critically high 0.55-1.02 [facility] Comment on above: Performed By: #### PETRONA MILAN #### [facility] [address] [place] [address] Dr. Stefany Corral EGFR-AF BURUNDIAN 59 mL/min/1.73m2 Critically low >=60 [facility] Comment on above: Performed By: #### Pawel BETHEA CREA #### [facility] [address] [address] [address] Stefany Corral EGFR-NON AF BURUNDIAN 49 mL/min/1.73m2 Critically low >=60 [facility] Comment on above: Performed By: #### L NEEMA CREA #### [facility] [address] [address] [address] Stefany Corral LIVER PROFILEon 11-06-2022 Albumin [Mass/Vol] 3.5 g/dL Normal 3.4-5.0 [facility] Comment on above: Performed By: #### Pawel BETHEA CREA #### [facility] [address] [place] [address] Dr. Stefany Corral Albumin/Globulin [Mass ratio] 0.9 {ratio} Normal [facility] Comment on above: Performed By: #### Pawel BETHEA CREA #### [facility] [address] [place] [address] Dr. Stefany Corral ALP [Catalytic activity/Vol] 124 U/L Critically high 46-116 [facility] Comment on above: Performed By: #### CHELSIE MILANA #### [facility] [address] [place] [address] Dr. Stefany Corral ALT [Catalytic activity/Vol] 18 U/L Normal 14-59 [facility] Comment on above: Performed By: #### Pawel BETHEA CREA #### [facility] [address] [place] [address] Dr. Stefany Corral AST [Catalytic activity/Vol] 16 U/L Normal 15-37 [facility] Comment on above: Performed By: #### Pawel BETHEA CREA #### [facility] [address] [place] [address] Dr. Stefany Corral BILI, CONJUGATED 0.0 mg/dL Normal 0.0-0.2 [facility] Comment on above: Performed By: #### L NEEMA CREA #### [facility] [address] [place] [address] Dr. Stefany Corral Bilirubin [Mass/Vol] 0.2 mg/dL Normal 0.2-1.0 [facility] Comment on above: Performed By: #### L PETRONA BETHEA #### [facility] [address] [place] [address] Dr. Stefany Corral Globulin (S) [Mass/Vol] 4.0 g/dL Normal T [facility] Comment on above: Performed By: #### PETRONA MILAN #### [facility] [address] [place] [address] Dr. Stefany Corral Protein [Mass/Vol] 7.5 g/dL Normal 6.4-8.2 [facility] Comment on above: Performed By: #### PETRONA MILAN #### [facility] [address] [place] [address] Dr. Stefany Corral [facility] SED [facility]ATE 19 mm/hr Normal <=30 [facility] Comment on above: Performed By: #### S EDR #### [facility] [address] [place] [address] Dr. Stefany Corral BASIC METABOLIC PANELon 03-0 Anion gap [Moles/Vol] 11 mmol/L Normal 7-20 [facility] Comment on above: Performed By: #### L AB15 ####[facility] [place] [address] Calcium [Mass/Vol] 9.9 mg/dL Normal 8.6-10.3 [facility] Comment on above: Performed By: #### L AB15 ####[facility] [place] [address] Chloride [Moles/Vol] 103 mmol/L Normal 98-107 [facility] Comment on above: Performed By: #### L AB15 ####[facility] [place] [address] CO2 [Moles/Vol] 27 mmol/L Normal 21-31 [facility] Comment on above: Performed By: #### L AB15 ####[facility] [place] [address] Creatinine [Mass/Vol] 1.44 mg/dL High 0.60-1.20 [facility] Comment on above: Performed By: #### L AB15 ####[facility] ([facility])[address] [place] [address] GLOMERULAR FILTRATION RATE ML/MIN/1.73 SQ M.PREDICTED 42.2 mL/min/1.73m*2 Low >60.0 [facility] Comment on above: Result Comment: The [facility]???s estimated glomerular filtration rate (eGFR) will no longer include consideration of race in its calculation. The National Kidney Foundation???s eGFR Task Force developed new recommendations for the estimation of the glomerular filtration rate in the [place] They recommend immediate implementation of the new equation refit without the race variable in all laboratories because the calculation does not include race. In addition to not including race in the calculation and reporting, it included diversity in its development, and has acceptable performance characteristics and potential consequences that do not disproportionately affect any one group of individuals. Performed By: #### L [id number] ####[facility] ([facility])[address] [place] [address] Glucose [Mass/Vol] 101 mg/dL High 70-100 [facility] Comment on above: Performed By: #### L [id number] ####[facility] ([facility])[address] [place] [address] Potassium [Moles/Vol] 3.8 mmol/L Normal 3.5-5.1 [facility] Comment on above: Performed By: #### L [id number] ####[facility] ([facility])[address] [facility] [place] [place] [address] Sodium [Moles/Vol] 137 mmol/L Normal 136-145 [facility] Comment on above: Performed By: #### L [id number] ####[facility] [place] [address] Urea nitrogen [Mass/Vol] 30 mg/dL High 7-25 [facility] Comment on above: Performed By: #### L [id number] ####[facility] ([facility])[address] [place] [address] UREA NITROGEN/CREATININE (MASS RATIO) IN SER/PLAS 20.8 Normal [facility] Comment on above: Performed By: #### L AB15 ####[facility] ([facility])[address] [place] [address] CBCon 10-03-2022 Erythrocyte distribution width (RBC) [Ratio] 14.6 % Normal 11.5-15.0 [facility] Comment on above: Performed By: #### L [id number] ####[facility] ([facility])[address] [place] [address] ERYTHROCYTE MEAN CORPUSCULAR HEMOGLOBIN CONCENTRATION (G/DL) BY AUTOMATED 33.6 g/dL Normal 32.0-35.0 [facility] Comment on above: Performed By: #### L [id number] ####[facility] ([facility])[address] [place] [address] Hematocrit (Bld) [Volume fraction] 36.9 % Normal 36.0-48.0 [facility] Comment on above: Performed By: #### L [id number] ####[facility] [place] [address] Hemoglobin (Bld) [Mass/Vol] 12.4 g/dL Normal 12.0-15.0 [facility] Comment on above: Performed By: #### L [id number] ####[facility] [place] [address] MCH (RBC) [Entitic mass] 28.0 pg Normal 27.0-33.0 [facility] Comment on above: Performed By: #### L [id number] ####[facility] [place] [address] MCV (RBC) [Entitic vol] 83.3 fL Normal 82.0-98.0 [facility] Comment on above: Performed By: #### L [id number] ####[facility] [place] [address] PLATELETS (10*3/UL) IN BLOOD AUTOMATED COUNT 332 10*3/uL Normal 150-400 [facility] Comment on above: Performed By: #### L [id number] ####[facility] [place] [address] RBC (Bld) [#/Vol] 4.43 10*6/uL Normal 3.80-5.00 [facility] Comment on above: Performed By: #### L [id number] ####[facility] [place] [address] WBC (Bld) [#/Vol] 11.04 10*3/uL High 4.00-10.60 [facility] Comment on above: Performed By: #### L [id number] ####[facility] [place] [address] HPon 10-03-2022 HP - Attestation signed by Manuel Ortiz MD at 10/03/2022 9:00 AM H and P reviewed. No significant changes. Patient presenting with pulmonary hypertension. Plan to proceed with right heart cath. Procedure was explained to patient at length and in detail. Risks, benefits, and alternatives were discussed. Patient is informed that risks of this invasive procedure include, but are not limited to, bleeding, hematoma, kidney injury, CVA, arrythmia requiring defibrillation, need for emergent open heart surgery, and . Patient understands these risks and wishes to proceed. Manuel Ortiz MD H&P reviewed. The patient was examined and there are no changes to the H&P. Normal [facility] Letter (Out)on 09-24-2022 Letter (Out) [id number] Sylvia Garay 1965 F Date Provider Department Center 09/24/2022 None-None [facility] AUTH [facility] C Family History Problem Relation Age of Onset Hypertension Mother Hypertension Father Family Status - Relation Status Age at Mother Father Normal [facility] HPon 09-21-2022 HP Subjective Earlyramon Sheikh is a 57 y.o. year old female patient being seen for pulmonary hypertension. She is doing okay overall, her insurance did not approve her pulmonary artery hypertension medication. She denies chest pain or chest discomfort, palpitation or dizziness. Her dyspnea on exertion is stable. Patient Active Problem List Diagnosis Arthropathy Atrial fibrillation (CMS/HCC) Chest pain Coronary atherosclerosis Deficiency anemia Essential hypertension Hyperlipidemia Pulmonary hypertension (CMS/HCC) Systemic sclerosis (CMS/HCC) Family History Problem Relation Name Age of Onset Hypertension Mother Hypertension Father Review of Systems Constitutional: Negative. HENT: Negative. Eyes: Negative. Cardiovascular: Negative. Respiratory: Negative. Objective There were no vitals taken for this visit. Physical Exam Physical Exam Constitutional: Appearance: Normal appearance. He is obese. HENT: Head: Normocephalic and atraumatic. Nose: Nose normal. Mouth: Mucous membranes are moist. Pharynx: Oropharynx is clear. Eyes: Extraocular Movements: Extraocular movements intact. Conjunctiva/sclera: Conjunctivae normal. Cardiovascular: Rate and Rhythm: Normal rate and regular rhythm. Pulses: Normal pulses. Heart sounds: Normal heart sounds. Lower extremities: No edema. Pulmonary: Effort: Pulmonary effort is normal. Breath sounds: Normal breath sounds. Abdominal: General: Abdomen is flat. Palpations: Abdomen is soft. Musculoskeletal: Cervical back: Neck supple. She recently had foot surgery and has a port on her right foot Skin: General: Skin is warm and dry. Neurological: Mental Status: He is alert. Allergies Allergies Allergen Reactions Amoxicillin-Pot Clavulanate Other reaction(s): Other Medications Current Outpatient Medications: macitentan (Opsumit) 10 mg tablet, in the morning., Disp: , Rfl: tadalafil, antihypertensive, (Adcirca) 20 mg tablet, Adcirca 20 mg tablet TAKE 2 TABLETS BY MOUTH EVERY DAY, Disp: , Rfl: aspirin 81 mg EC tablet, in the morning., Disp: , Rfl: carvedilol (Coreg) 6.25 mg tablet, carvedilol 6.25 mg tablet, Disp: , Rfl: celecoxib (CeleBREX) 200 mg capsule, celecoxib 200 mg capsule, Disp: , Rfl: ferrous sulfate 325 (65 Fe) MG tablet, iron 325 mg (65 mg iron) tablet Take by oral route., Disp: , Rfl: furosemide (Lasix) 20 mg tablet, furosemide 20 mg tablet, Disp: , Rfl: hydroCHLOROthiazide (HYDRODiuril) 25 mg tablet, hydrochlorothiazide 25 mg tablet TAKE 1 TABLET BY MOUTH ONCE DAILY IN THE MORNING, Disp: , Rfl: HYDROcodone-acetamino phen (Carlisle) 5-325 mg tablet, hydrocodone 5 mg-acetaminophen 325 mg tablet TAKE 1 TABLET BY MOUTH EVERY 6 HOURS FOR 4 DAYS, Disp: , Rfl: hydroxychloroquine (Plaquenil) 200 mg tablet, hydroxychloroquine 200 mg tablet TAKE 1 TABLET BY MOUTH ONCE DAILY ALTERNATING WITH TWICE DAILY WITH FOOD, Disp: , Rfl: lisinopril 10 mg tablet, lisinopril 10 mg tablet, Disp: , Rfl: loratadine (Claritin) 10 mg tablet, in the morning., Disp: , Rfl: NIFEdipine XL (Procardia XL) 60 mg 24 hr tablet, nifedipine ER 60 mg tablet,extended release 24 hr, Disp: , Rfl: omeprazole (PriLOSEC) [address] capsule, 1 capsule in the morning., Disp: , Rfl: raNITIdine (Zantac) 150 mg tablet, Take 150 mg by mouth., Disp: , Rfl: sulfaSALAzine (Azulfidine) 500 mg EC tablet, sulfasalazine 500 mg tablet,delayed release take 2 tablets by mouth twice a day, Disp: , Rfl: tolterodine LA (Detrol LA) 4 mg 24 hr capsule, tolterodine ER 4 mg capsule,extended release 24 hr, Disp: , Rfl: traMADol (Ultram) 50 mg tablet, tramadol 50 mg tablet TAKE 1 TABLET BY MOUTH EVERY 6 HOURS NEEDED FOR 7 DAYS, Disp: , Rfl: Recent Labs No results found for: NA, K, CL, CO2, BUN, CREATININE, GLUCOSE, CALCIUM Imaging and other tests Assessment/Plan 1.pulmonary hypertension She is NYHA FC II, PAH due schleroderma. Euvolemic on physical exam Echo showed again severe pulmonary hypertension. I am going to repeat also the right heart cath to further LE need the details of her hemodynamic and especially her pulmonary vascular resistance. Last right heart cath was done in 2012. We well get her back on macitentan and adcirca and push insurance to cover her as much as we can. We will try to find a way to cover her medication. 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 Family History Problem Relation Age of Onset Hypertension Mother Hypertension Father Family Status - Relation Status Age at Mother Father Level of Service:17622 ID OFFICE/OUTPATIENT ESTABLISHED MOD MDM 30-39 MIN Reason for Visit and Comments: Follow-up [875808] - Echo done today. Patient states there is not problems or concerns Normal [facility] CBC AUTO DIFFon 09-11-2022 BASO # 0.1 103/ul Normal 0.0-0.1 [facility] Comment on above: Performed By: #### C BC #### [facility] [address] [place] [address] Dr. Stefany Corral Basophils/100 WBC (Bld) 0.6 % Normal 0.2-2.0 [facility] Comment on above: Performed By: #### C BC #### [facility] [address] [place] [address] Dr. Stefany Corral EO # 0.1 103/ul Normal 0.0-0.7 [facility] Comment on above: Performed By: #### C BC #### [facility] [address] [place] [address] Dr. Stefany Corral Eosinophils/100 WBC (Bld) 1.4 % Normal 0.9-7.0 [facility] Comment on above: Performed By: #### C BC #### [facility] [address] [place] [address] Dr. Stefany Corral Erythrocyte distribution width (RBC) [Ratio] 13.7 % Normal 11.0-15.0 [facility] Comment on above: Performed By: #### C BC #### [facility] [address] [place] [address] Dr. Stefany Corral Hematocrit (Bld) [Volume fraction] 40.2 % Normal 36.0-48.0 [facility] Comment on above: Performed By: #### C BC #### [facility] [address] [place] [address] Dr. Stefany Corral Hemoglobin (Bld) [Mass/Vol] 13.4 g/dL Normal 12.0-16.0 [facility] Comment on above: Performed By: #### C BC #### [facility] [address] [place] [address] Dr. Stefany Corral IG # 0.03 10e3/ul Normal 0.00-0.03 [facility] Comment on above: Performed By: #### C BC #### [facility] [address] [place] [address] Dr. Stefany Corral IG % 0.3 % Normal 0.0-0.5 [facility] Comment on above: Performed By: #### C BC #### [facility] [address] [place] [address] Dr. Stefany Corral LYMPH # 2.4 103/ul Normal 1.2-3.8 [facility] Comment on above: Performed By: #### C BC #### [facility] [address] [place] [address] Dr. Stefany Corral Lymphocytes/100 WBC (Bld) 27.4 % Normal 20.5-60.0 [facility] Comment on above: Performed By: #### C BC #### [facility] [address] [place] [address] Dr. Stefany Corral MANUAL DIFF REQ NO Normal [facility] Comment on above: Performed By: #### C BC #### [facility] [address] [place] [address] Dr. Stefany Corral MCH (RBC) [Entitic mass] 27.5 pg Normal 26.7-34.0 [facility] Comment on above: Performed By: #### C BC #### [facility] [address] [place] [address] Dr. Steafny Corral MCHC (RBC) [Mass/Vol] 33.3 g/dL Normal 29.9-35.2 [facility] Comment on above: Performed By: #### C BC #### [facility] [address] [place] [address] Dr. Stefany Corral MCV (RBC) [Entitic vol] 82.4 fL Normal 81.0-99.0 [facility] Comment on above: Performed By: #### C BC #### [facility] [address] [place] [address] Dr. Stefany Corral MONO # 0.8 103/ul Normal 0.3-0.8 [facility] Comment on above: Performed By: #### C BC #### [facility] [address] [place] [address] Dr. Stefany Corral Monocytes/100 WBC (Bld) 8.6 % Normal 1.7-12.0 [facility] Comment on above: Performed By: #### C BC #### [facility] [address] [place] [address] Dr. Stefany Corral NEUT # 5.5 103/ul Normal 1.4-6.5 [facility] Comment on above: Performed By: #### C BC #### [facility] [address] [place] [address] Dr. Stefany Corral Neutrophils/100 WBC (Bld) 61.7 % Normal 43.0-75.0 [facility] Comment on above: Performed By: #### C BC #### [facility] [address] [place] [address] Dr. Stefany Corral Platelet mean volume (Bld) [Entitic vol] 10.2 fL Normal 9.5-13.5 [facility] Comment on above: Performed By: #### C BC #### [facility] [address] [place] [address] Dr. Stefany Corral PLT 326 103/ul Normal 150-450 [facility] Comment on above: Performed By: #### C BC #### [facility] [address] [place] [address] Dr. Stefany Corral RBC 4.88 106/ul Normal 4.20-5.40 [facility] Comment on above: Performed By: #### C BC #### [facility] [address] [place] [address] Dr. Stefany Corral WBC 8.9 103/ul Normal 4.0-11.0 [facility] Comment on above: Performed By: #### C BC #### [facility] [address] [place] [address] Dr. Stefany Corral CREATININEon 09-11-2022 Creatinine [Mass/Vol] 1.34 mg/dL Critically high 0.55-1.02 [facility] Comment on above: Performed By: #### PETRONA MILAN #### [facility] [address] [place] [address] Dr. Stefany Corral EGFR-AF BURUNDIAN 49 mL/min/1.73m2 Critically low >=60 [facility] Comment on above: Performed By: #### PETRONA MILAN #### [facility] [address] [place] [address] Dr. Stefany Corral EGFR-NON AF BURUNDIAN 41 mL/min/1.73m2 Critically low >=60 [facility] Comment on above: Performed By: #### PETRONA MILAN #### [facility] [address] [place] [address] Dr. Stefany Corral LIVER PROFILEon 09-11-2022 Albumin [Mass/Vol] 3.8 g/dL Normal 3.4-5.0 [facility] Comment on above: Performed By: #### PETRONA MILAN #### [facility] [address] [address] [address] Stefany Corral Albumin/Globulin [Mass ratio] 0.9 {ratio} Normal [facility] Comment on above: Performed By: #### Pawel BETHEA CREA #### [facility] [address] [address] [address] Stefany Corral ALP [Catalytic activity/Vol] 114 U/L Normal 46-116 [facility] Comment on above: Performed By: #### Pawel BETHEA CREA #### [facility] [address] [address] [address] Stefany Corral ALT [Catalytic activity/Vol] 12 U/L Critically low 14-59 [facility] Comment on above: Performed By: #### Pawel BETHEA CREA #### [facility] [address] [address] [address] Stefany Corral AST [Catalytic activity/Vol] 17 U/L Normal 15-37 [facility] Comment on above: Performed By: #### Pawel BETHEA CREA #### [facility] [address] [address] [address] Stefany Corral BILI, CONJUGATED 0.0 mg/dL Normal 0.0-0.2 [facility] Comment on above: Performed By: #### Pawel BETHEA CREA #### [facility] [address] [place] [address] Dr. Stefany Corral Bilirubin [Mass/Vol] 0.2 mg/dL Normal 0.2-1.0 [facility] Comment on above: Performed By: #### Pawel BETHEA CREA #### [facility] [address] [address] [address] Stefany Corral Globulin (S) [Mass/Vol] 4.3 g/dL Normal T [facility] Comment on above: Performed By: #### Pawel BETHEA CREA #### [facility] [address] [address] [address] Stefany Corral Protein [Mass/Vol] 8.1 g/dL Normal 6.4-8.2 [facility] Comment on above: Performed By: #### L PETRONA BETHEA #### [facility] [address] [address] [address] Stefany Corral [facility] 79 mm/hr Critically high <=30 [facility] Comment on above: Performed By: #### S EDR #### [facility] [address] [address] [address] Stefany Corral XR chest 2V*on 08-13-2022 XR chest 2V* [facility] [place] [address] [place] [address] XRay Report Signed Patient: Sylvia Bass MR#: [id number] : 1965 Acct:[id number] Age/Sex: 57 / F ADM Date: 08/13/22 Loc: XD Room: Type: [facility] Attending Dr: Giacomo Benitez DPrAi Copies to: Giacomo Benitez DPM Ordering Provider: Giacomo Benitez DPM Date of Service: 08/13/22 XR/XR chest 2V*: PST,HTN FORMER SMOKER, ILD Plain film chest2 view HISTORY:Preop assessment. COMPARISON:None FINDINGS: The cardiac, mediastinal and hilar silhouettes are within normal limits. No acute lung process, pleural effusion or pneumothorax identified. Thoracic spondylosis present. XR/XR chest 2V* IMPRESSION: No acute process. Impression dictated by: Devonte Platt M.D.08/13/2022 2:42 PM Dictation Location: [place] [address] Transcribed By: [facility] 08/13/22 1442 Dictated By: Devonte Platt DO 08/13/22 1441 Signed By: 08/13/22 1442 Normal [facility] Basic Metabolic Panelon 12-2 Anion gap [Moles/Vol] 15.3 mmol/L High 6.0-15.0 [facility] Comment on above: Order Comment: PT IS NON FASTING Reason for Exam HAV (hallux abducto valgus), left;Metatarsalgia of right michelet Performed By: #### C BC, BMP #### [facility] [address] Calcium [Mass/Vol] 9.2 mg/dL Normal 8.2-10.2 [facility] Comment on above: Order Comment: PT IS NON FASTING Reason for Exam HAV (hallux abducto valgus), left;Metatarsalgia of right michelet Result Comment: PERF ORMED BY: [place] [address] PATHOLOGIST [employer] JESUSITA NICHOLE M.D. Performed By: #### C BC, BMP #### [facility] [address] Chloride [Moles/Vol] 98 mmol/L Normal 95-114 [facility] Comment on above: Order Comment: PT IS NON FASTING Reason for Exam HAV (hallux abducto valgus), left;Metatarsalgia of right michelet Performed By: #### C BC, BMP #### [facility] [address] CO2 [Moles/Vol] 23.6 mmol/L Normal 22.0-30.0 [facility] Comment on above: Order Comment: PT IS NON FASTING Reason for Exam HAV (hallux abducto valgus), left;Metatarsalgia of right michelet Performed By: #### C BC, BMP #### [facility] [address] Creatinine [Mass/Vol] 1.48 mg/dL High 0.44-1.03 [facility] Comment on above: Order Comment: PT IS NON FASTING Reason for Exam HAV (hallux abducto valgus), left;Metatarsalgia of right michelet Performed By: #### C BC, BMP #### [facility] [address] [place] [address] [place] Estimated GFR ( Shandra 44 [facility] Comment on above: Order Comment: PT IS NON FASTING Reason for Exam HAV (hallux abducto valgus), left;Metatarsalgia of right michelet Result Comment: GFR estimated reference range: According to KDOQI guidelines, <60 ml/min/1.73m2 is sufficient to diagnose a patient with chronic kidney disease. Performed By: #### C BC, BMP #### [facility] [address] Estimated GFR (Non- Am 36 Normal [facility] Comment on above: Order Comment: PT IS NON FASTING Reason for Exam HAV (hallux abducto valgus), left;Metatarsalgia of right michelet Performed By: #### C BC, BMP #### [facility] [address] Glucose [Mass/Vol] 95 mg/dL Normal 70-100 [facility] Comment on above: Order Comment: PT IS NON FASTING Reason for Exam HAV (hallux abducto valgus), left;Metatarsalgia of right michelet Result Comment: [facility] Glucose Reference Range is dependent on time and content of last meal. Glucose of more than 200 mg/dL in a nonstressed, ambulatory subject supports the diagnosis of Diabetes Mellitus. ADA recommended reference range Performed By: #### C BC, BMP #### [address] Potassium [Moles/Vol] 3.9 mmol/L Normal 3.5-5.1 [facility] Comment on above: Order Comment: PT IS NON FASTING Reason for Exam HAV (hallux abducto valgus), left;Metatarsalgia of right michelet Performed By: #### C BC, BMP #### [address] Sodium [Moles/Vol] 133 mmol/L Low 136-146 [facility] Comment on above: Order Comment: PT IS NON FASTING Reason for Exam HAV (hallux abducto valgus), left;Metatarsalgia of right michelet Performed By: #### C BC, BMP #### [facility] [address] [place] [id number] [facility] Urea nitrogen [Mass/Vol] 29 mg/dL High 9-23 [facility] Comment on above: Order Comment: PT IS NON FASTING Reason for Exam HAV (hallux abducto valgus), left;Metatarsalgia of right michelet Performed By: #### C BC, BMP #### [facility] [address] [place] [address] [place] Basophils Auto (Bld) [#/Vol] Ordered By: Josefa Martinez on 07-25-2022 Basophils (Bld) [#/Vol] 0.0 10*3/uL 0.0-0.2 [facility] Basophils/100 WBC Auto (Bld) Ordered By: Josefa Martinez on 07-25-2022 Basophils/100 WBC (Bld) 0.4 % . F [facility] Complete Blood Count Auto Di ffon 07-25-2022 Basophils (Bld) [#/Vol] 0.0 10*3/uL Normal 0.0-0.2 [facility] Comment on above: Order Comment: Reaso n for Exam HAV (hallux abducto valgus), left;Metatarsalgia of right michelet Result Comment: PERF ORMED BY: [place] [address] PATHOLOGIST [employer] JESUSITA NICHOLE M.D. Performed By: #### C BC, BMP #### [address] Basophils/100 WBC (Bld) 0.4 % Normal . F [facility] Comment on above: Order Comment: Reaso n for Exam HAV (hallux abducto valgus), left;Metatarsalgia of right michelet Performed By: #### C BC, BMP #### [facility] [address] [place] [address] [place] Eosinophils (Bld) [#/Vol] 0.5 10*3/uL High 0.0-0.45 [facility] Comment on above: Order Comment: Reaso n for Exam HAV (hallux abducto valgus), left;Metatarsalgia of right michelet Performed By: #### C BC, BMP #### [place] [address] [place] Eosinophils/100 WBC (Bld) 6.1 % Normal . [facility] Comment on above: Order Comment: Reaso n for Exam HAV (hallux abducto valgus), left;Metatarsalgia of right michelet Performed By: #### C BC, BMP #### [facility] [address] Erythrocyte distribution width (RBC) [Ratio] 14.9 % Normal 11.9-15.3 [facility] Comment on above: Order Comment: Reaso n for Exam HAV (hallux abducto valgus), left;Metatarsalgia of right michelet Performed By: #### C BC, BMP #### [address] Hematocrit (Bld) [Volume fraction] 38.3 % Normal 34.0-46.4 [facility] Comment on above: Order Comment: Reaso n for Exam HAV (hallux abducto valgus), left;Metatarsalgia of right michelet Performed By: #### C BC, BMP #### [address] Hemoglobin (Bld) [Mass/Vol] 12.5 g/dL Normal 11.8-15.4 [facility] Comment on above: Order Comment: Reaso n for Exam HAV (hallux abducto valgus), left;Metatarsalgia of right michelet Performed By: #### C BC, BMP #### [address] Lymphocytes (Bld) [#/Vol] 2.6 10*3/uL Normal 1.00-4.8 [facility] Comment on above: Order Comment: Reaso n for Exam HAV (hallux abducto valgus), left;Metatarsalgia of right michelet Performed By: #### C BC, BMP #### [address] Lymphocytes/100 WBC (Bld) 32.8 % Normal . [facility] Comment on above: Order Comment: Reaso n for Exam HAV (hallux abducto valgus), left;Metatarsalgia of right michelet Performed By: #### C BC, BMP #### [address] MCH (RBC) [Entitic mass] 27.1 pg Normal 24.7-34.3 [facility] Comment on above: Order Comment: Reaso n for Exam HAV (hallux abducto valgus), left;Metatarsalgia of right michelet Performed By: #### C BC, BMP #### [facility] [address] MCV (RBC) [Entitic vol] 83.2 fL Normal 80-100 [facility] Comment on above: Order Comment: Reaso n for Exam HAV (hallux abducto valgus), left;Metatarsalgia of right michelet Performed By: #### C BC, BMP #### [facility] [address] Mean Corpuscular HGB Conc 32.5 g/dL Normal 32.0-35.0 [facility] Comment on above: Order Comment: Reaso n for Exam HAV (hallux abducto valgus), left;Metatarsalgia of right michelet Performed By: #### C BC, BMP #### [facility] [address] Monocytes (Bld) [#/Vol] 1.0 10*3/uL High 0.0-0.8 [facility] Comment on above: Order Comment: Reaso n for Exam HAV (hallux abducto valgus), left;Metatarsalgia of right michelet Performed By: #### C BC, BMP #### [place] [address] [place] Monocytes/100 WBC (Bld) 12.5 % Normal . F [facility] Comment on above: Order Comment: Reaso n for Exam HAV (hallux abducto valgus), left;Metatarsalgia of right michelet Performed By: #### C BC, BMP #### [facility] [address] [place] [address] [place] Neutrophils (Bld) [#/Vol] 3.8 10*3/uL Normal 1.8-7.7 [facility] Comment on above: Order Comment: Reaso n for Exam HAV (hallux abducto valgus), left;Metatarsalgia of right michelet Performed By: #### C BC, BMP #### [facility] [address] Neutrophils/100 WBC (Bld) 48.2 % Normal . [facility] Comment on above: Order Comment: Reaso n for Exam HAV (hallux abducto valgus), left;Metatarsalgia of right michelet Performed By: #### C BC, BMP #### [facility] [address] NRBC% 0.1 /100{WBC} Normal 0-0.5 [facility] Comment on above: Order Comment: Reaso n for Exam HAV (hallux abducto valgus), left;Metatarsalgia of right michelet Performed By: #### C BC, BMP #### [address] Platelet mean volume (Bld) [Entitic vol] 8.6 fL Normal 6.3-10.7 [facility] Comment on above: Order Comment: Reaso n for Exam HAV (hallux abducto valgus), left;Metatarsalgia of right michelet Performed By: #### C BC, BMP #### [address] Platelets (Bld) [#/Vol] 257 10*3/uL Normal 150-450 [facility] Comment on above: Order Comment: Reaso n for Exam HAV (hallux abducto valgus), left;Metatarsalgia of right michelet Performed By: #### C BC, BMP #### [address] RBC (Bld) [#/Vol] 4.60 10*6/uL Normal 3.60-5.00 [facility] Comment on above: Order Comment: Reaso n for Exam HAV (hallux abducto valgus), left;Metatarsalgia of right michelet Performed By: #### C BC, BMP #### [address] WBC (Bld) [#/Vol] 7.9 10*3/uL Normal 3.8-11.6 [facility] Comment on above: Order Comment: Reaso n for Exam HAV (hallux abducto valgus), left;Metatarsalgia of right michelet Performed By: #### C BC, MARCY #### [address] Creatinine and Glomerular fi ltration rate.predicted panel (S/P/Bld)Ordered By: Josefa Martinez on 07-25-2022 Creatinine [Mass/Vol] 1.48 mg/dL 0.44-1.03 [facility] ECG 12 lead ECGon 07-25-2022 ECG 12 lead ECG [facility] [place] [address] [place] [address] Electrocardiograph Report Signed Patient: Sylvia Bass MR#: [id number] : 1965 Acct:[id number] Age/Sex: 57 / F ADM Date: 07/25/22 Loc: Room: Type: [facility] Attending Dr: Josefa Martinez MD Ordering Provider: Josefa Martinez MD Date of Service: 07/25/22 ECG/ECG 12 lead ECG: surgery;HAV (hallux abducto valgus), left;Metatarsalgia of r Copies to: Test Reason : Blood Pressure : / mmHG Vent. Rate : 082 BPM Atrial Rate : 082 BPM P-R Int : 152 ms QRS Dur : 076 ms QT Int : 376 ms P-R-T Axes : 073 074 064 degrees QTc Int : 439 ms Normal sinus rhythm Normal ECG No previous ECGs available Confirmed by JAN BARR MD ([id number]) on 07/25/2022 4:25:20 PM Referred By: JOSEFA MARTINEZ Electronically Signed By:JAN BARR MD Transcribed By: MUS Signed By Jan Barr MD 1 09/25/21 2053 Normal [facility] Eosinophils Auto (Bld) [#/Vo l]Ordered By: Josefa Martinez on 07-25-2022 Eosinophils (Bld) [#/Vol] 0.5 10*3/uL 0.0-0.45 [facility] Eosinophils/100 WBC Auto (Bl d)Ordered By: Josefa Martinez on 07-25-2022 Eosinophils/100 WBC (Bld) 6.1 % . [facility] Erythrocyte distribution wid th Auto (RBC) [Ratio]Ordered By: Josefa Martinez on 07-25-2022 Erythrocyte distribution width (RBC) [Ratio] 14.9 % 11.9-15.3 [facility] Estimated glomerular filtrat ion rate (GFR) non- AmericanOrdered By: Josefa Martinez on 07-25-2022 GFR/1.73 sq M.predicted among non-blacks MDRD (S/P/Bld) [Vol rate/Area] 36 mL/Min [facility] Hematocrit Auto (Bld) [Volum e fraction]Ordered By: Josefa Martinez on 07-25-2022 Hematocrit (Bld) [Volume fraction] 38.3 % 34.0-46.4 [facility] Hemoglobin [Mass/volume] in BloodOrdered By: Josefa Martinez on 07-25-2022 Hemoglobin (Bld) [Mass/Vol] 12.5 g/dL 11.8-15.4 [facility] Leukocytes [#/volume] correc brendan for nucleated erythrocytes in Blood by Automated counOrdered By: Josefa Martinez on 07-25-2022 WBC corrected for nucl RBC Auto (Bld) [#/Vol] 7.9 10*3/uL 3.8-11.6 [facility] Lymphocytes Auto (Bld) [#/Vo l]Ordered By: Josefa Martinez on 07-25-2022 Lymphocytes (Bld) [#/Vol] 2.6 10*3/uL 1.00-4.8 [facility] Lymphocytes/100 WBC Auto (Bl d)Ordered By: Josefa Martinez on 07-25-2022 Lymphocytes/100 WBC (Bld) 32.8 % . [facility] MCH Auto (RBC) [Entitic mass ]Ordered By: Josefa Martinez on 07-25-2022 MCH (RBC) [Entitic mass] 27.1 pg 24.7-34.3 [facility] MCHC Auto (RBC) [Mass/Vol]Or dered By: Josefa Martinez on 07-25-2022 MCHC (RBC) [Mass/Vol] 32.5 g/dL 32.0-35.0 [facility] MCV Auto (RBC) [Entitic vol] Ordered By: Josefa Martinez on 07-25-2022 MCV (RBC) [Entitic vol] 83.2 fL 80-100 [facility] Monocytes Auto (Bld) [#/Vol] Ordered By: Josefa Guzmana on 07-25-2022 Monocytes (Bld) [#/Vol] 1.0 10*3/uL 0.0-0.8 [facility] Monocytes/100 WBC Auto (Bld) Ordered By: Josefa Guzmana on 07-25-2022 Monocytes/100 WBC (Bld) 12.5 % . F [facility] Neutrophils Auto (Bld) [#/Vo l]Ordered By: Josefa Martinez on 07-25-2022 Neutrophils (Bld) [#/Vol] 3.8 10*3/uL 1.8-7.7 [facility] Neutrophils/100 WBC Auto (Bl d)Ordered By: Josefa Martinez on 07-25-2022 Neutrophils/100 WBC (Bld) 48.2 % . [facility] No Panel InformationOrdered By: Josefa Martinez on 07-25-2022 Estimated GFR () 44 mL/Min [facility] Comment on above: GFR estimated refere nce range: According to KDOQI guidelines, <60 ml/min/1.73m2 is sufficient to diagnose a patient with chronic kidney disease. Pharmacy Creatinine Clearance (Chem N/A [facility] Nucleated erythrocytes [Pres ence] in Blood by Automated countOrdered By: Josefa Martinez on 07-25-2022 Nucleated RBC Auto Ql (Bld) 0.1 /100{WBC} 0-0.5 [facility] Platelet mean volume Auto (B ld) [Entitic vol]Ordered By: Josefa Martinez on 07-25-2022 Platelet mean volume (Bld) [Entitic vol] 8.6 fL 6.3-10.7 [facility] Platelets Auto (Bld) [#/Vol] Ordered By: Josefa Martinez on 07-25-2022 Platelets (Bld) [#/Vol] 257 10*3/uL 150-450 [facility] RBC Auto (Bld) [#/Vol]Ordere d By: Josefa Martinez on 07-25-2022 RBC (Bld) [#/Vol] 4.60 10*6/uL 3.60-5.00 [facility] Serum or plasma anion gap de terminationOrdered By: Josefa Martinez on 07-25-2022 Anion gap [Moles/Vol] 15.3 mmol/L 6.0-15.0 [facility] Serum or plasma calcium enma urement (mass/volume)Ordered By: Josefa Martinez on 07-25-2022 Calcium [Mass/Vol] 9.2 mg/dL 8.2-10.2 [facility] Serum or plasma chloride horace surement (moles/volume)Ordered By: Josefa Martinez on 07-25-2022 Chloride [Moles/Vol] 98 mmol/L 95-114 [facility] Serum or plasma glucose enma urement (mass/volume)Ordered By: Josefa Martinez on 07-25-2022 Glucose [Mass/Vol] 95 mg/dL 70-100 [facility] Comment on above: ADA recommended refe rence rangeRandom Glucose Reference Range is dependent on time and content of last meal. Glucose of more than 200 mg/dL in a nonstressed, ambulatory subject supports the diagnosis of Diabetes Mellitus. Serum or plasma potassium me asurement (moles/volume)Ordered By: Josefa Martinez on 07-25-2022 Potassium [Moles/Vol] 3.9 mmol/L 3.5-5.1 [facility] Serum or plasma sodium measu rement (moles/volume)Ordered By: Josefa Martinez on 07-25-2022 Sodium [Moles/Vol] 133 mmol/L 136-146 [facility] Serum or plasma total carbon dioxide measurement (moles/volume)Ordered By: Josefa Martinez on 07-25-2022 CO2 [Moles/Vol] 23.6 mmol/L 22.0-30.0 [facility] Serum or plasma urea nitroge n measurement (mass/volume)Ordered By: Josefa Martinez on 07-25-2022 Urea nitrogen [Mass/Vol] 29 mg/dL 04-20 [facility] WBC Auto (Bld) [#/Vol]Ordere d By: Josefa Martinez on 07-25-2022 WBC (Bld) [#/Vol] 7.9 10*3/uL 3.8-11.6 [facility] CBC with Auto Differentialon 06-11-2022 Absolute Eos # 0.11 [facility] Absolute Immature Granulocyte 0.00 [facility] Absolute Lymph # 4.52 High [facility] Absolute Tripp # 0.[address] [facility] Atypical Lymphocytes 2 % [facility] Atypical Lymphocytes Absolute 0.21 k/uL [facility] Basophils (Bld) [#/Vol] 0.11 10*3/uL [facility] Basophils/100 WBC (Bld) 1 % 0 - 2 % B ON [facility] Eosinophils/100 WBC (Bld) 1 % 1 - 4 % [facility] Hematocrit (Bld) [Volume fraction] 35.9 % Low 36.3 - 47.1 % [facility] Hemoglobin (Bld) [Mass/Vol] 11.4 g/dL Low 11.9 - 15.1 g/dL [facility] Immature granulocytes/100 WBC (Bld) 0 % 0 [facility] Interpretation and review of laboratory results Abnormal [facility] Lymphocytes/100 WBC (Bld) 43 % 24 - 43 % [facility] MCH (RBC) [Entitic mass] 27.2 pg 25.2 - 33.5 pg [facility] MCHC (RBC) [Mass/Vol] 31.8 g/dL 28.4 - 34.8 g/dL [facility] MCV (RBC) [Entitic vol] 85.7 fL 82.6 - 102.9 fL [facility] Monocytes/100 WBC (Bld) 9 % 3 - 12 % B ON [facility] Morphology William (Bld) [Interp] Platelet scan shows Normal Platelets [facility] NRBC Automated 0.0 0.0 per 100 WBC [facility] Platelet distribution width (Bld) [Ratio] 13.4 % 11.8 - 14.4 % [facility] Platelet mean volume (Bld) [Entitic vol] 10.3 fL 8.1 - 13.5 fL [facility] Platelets (Bld) [#/Vol] 335 10*3/uL [facility] RBC (Bld) [#/Vol] 4.19 10*6/uL 3.95 - 5.1 1 m/uL [facility] Segmented neutrophils/100 WBC (Bld) 44 % 36 - 65 % [facility] Segs Absolute 4.60 [facility] WBC (Bld) [#/Vol] 10.5 10*3/uL [facility] CBC with Diffon 06-11-2022 Abs. Atypical Lymphs 0.21 k/uL Normal [facility] Comment on above: Performed By: #### C DP, LIVP, CREG, SED #### [address] [place] [id number] [employer] Manager: Chip Andino MD Abs. Basophil 0.11 k/uL Normal 0.0-0.2 [facility] Comment on above: Performed By: #### C DP, LIVP, CREG, SED #### [address] [place] [address] Dog Races Manager: Chip Andino MD Abs.Imm.Granulocyte 0.00 k/uL Normal 0.00-0.30 [facility] Comment on above: Performed By: #### C DP, LIVP, CREG, SED #### [address] [place], [facility]83 Dog Races Manager: Chip Andino MD Abs.Neutrophil (Seg) 4.60 k/uL Normal 1.50-8.10 [facility] Comment on above: Performed By: #### C DP, LIVP, CREG, SED #### [address] [place], [facility]83 Dog Races Manager: Chip Andino MD Atypical Lymphs 2 % Normal [facility] Comment on above: Performed By: #### C DP, LIVP, CREG, SED #### [address] [place] [id number] Dog Races Manager: Chip Andino MD Basophils/100 WBC (Bld) 1 % Normal 0-2 [facility] Comment on above: Performed By: #### C DP, LIVP, CREG, SED #### [address] [place] [id number] Dog Races Manager: Chip Andino MD Eosinophils (Bld) [#/Vol] 0.11 10*3/uL Normal 0.00-0.44 [facility] Comment on above: Performed By: #### C DP, LIVP, CREG, SED #### [address] [place], [place] [address] Dog Races Manager: Chip Andino MD Eosinophils/100 WBC (Bld) 1 % Normal 1-4 [facility] Comment on above: Performed By: #### C DP, LIVP, CREG, SED #### [address] [place], [place] [address] Dog Races Manager: Chip Andino MD Immature granulocytes/100 WBC (Bld) 0 % Normal 0 [facility] Comment on above: Performed By: #### C DP, LIVP, CREG, SED #### [address] [place], [place] [address] Dog Races Manager: Chip Andino MD Lymphocytes (Bld) [#/Vol] 4.52 10*3/uL High 1.10-3.70 [facility] Comment on above: Performed By: #### C DP, LIVP, CREG, SED #### [address] [place], [facility]83 Dog Races Manager: Chip Andino MD Lymphocytes/100 WBC (Bld) 43 % Normal 24-43 [facility] Comment on above: Performed By: #### C DP, LIVP, CREG, SED #### [facility] [address] [place], [place] [id number] Dog Races Manager: Chip Andino MD Monocytes (Bld) [#/Vol] 0.95 10*3/uL Normal 0.10-1.20 [facility] Comment on above: Performed By: #### C DP, LIVP, CREG, SED #### [address] [place] [address] Dog Races Manager: Chip Andino MD Monocytes/100 WBC (Bld) 9 % Normal 3-12 [facility] Comment on above: Performed By: #### C DP, LIVP, CREG, SED #### [address] [place], [place] [address] Dog Races Manager: Chip Andino MD Morphology William (Bld) [Interp] Platelet scan shows Normal Platelets Normal [facility] Comment on above: Performed By: #### C DP, LIVP, CREG, SED #### [address] [place], [facility]83 Dog Races Manager: Chip Andino MD Neutrophil (Seg) 44 % Normal 36-65 [facility] Comment on above: Performed By: #### C DP, LIVP, CREG, SED #### [address] [place] [address] Dog Races Manager: Chip Andino MD Erythrocyte distribution width (RBC) [Ratio] 13.4 % Normal 11.8-14.4 [facility] Comment on above: Performed By: #### C DP, LIVP, CREG, SED #### [address] [place], [place] [id number] Dog Races Manager: Chip Andino MD Hematocrit (Bld) [Volume fraction] 35.9 % Low 36.3-47.1 [facility] Comment on above: Performed By: #### C DP, LIVP, CREG, SED #### [address] [place], [place] [id number] Dog Races Manager: Chip Andino MD Hemoglobin (Bld) [Mass/Vol] 11.4 g/dL Low 11.9-15.1 [facility] Comment on above: Performed By: #### C DP, LIVP, CREG, SED #### [address] [place], [facility]83 Dog Races Manager: Chip Andino MD MCH (RBC) [Entitic mass] 27.2 pg Normal 25.2-33.5 [facility] Comment on above: Performed By: #### C DP, LIVP, CREG, SED #### [address] [place], [facility]83 Dog Races Manager: Chip Andino MD MCHC (RBC) [Mass/Vol] 31.8 g/dL Normal 28.4-34.8 [facility] Comment on above: Performed By: #### C DP, LIVP, CREG, SED #### [address] [place], [facility]83 Dog Races Manager: Chip Andino MD MCV (RBC) [Entitic vol] 85.7 fL Normal 82.6-102.9 [facility] Comment on above: Performed By: #### C DP, LIVP, CREG, SED #### [address] [place] [address] Dog Races Manager: Chip Andino MD NRBC Automated 0.0 per 100 WBC Normal 0.0 [facility] Comment on above: Performed By: #### C DP, LIVP, CREG, SED #### [address] [place], [facility]83 Dog Races Manager: Chip Andino MD Platelet mean volume (Bld) [Entitic vol] 10.3 fL Normal 8.1-13.5 [facility] Comment on above: Performed By: #### C DP, LIVP, CREG, SED #### [facility] [address] [place] [address] Dog Races Manager: Chip Andino MD Platelets (Bld) [#/Vol] 335 10*3/uL Normal 138-453 [facility] Comment on above: Performed By: #### C DP, LIVP, CREG, SED #### [facility] [address] [place] [address] Dog Races Manager: Chip Andino MD RBC (Bld) [#/Vol] 4.19 10*6/uL Normal 3.95-5.11 [facility] Comment on above: Performed By: #### C DP, LIVP, CREG, SED #### [facility] [address] [place] [address] Dog Races Manager: Chip Andino MD WBC (Bld) [#/Vol] 10.5 10*3/uL Normal 3.5-11.3 [facility] Comment on above: Performed By: #### C DP, LIVP, CREG, SED #### [facility] [address] [place] [address] Dog Races Manager: Chip Andino MD Creatinineon 06-11-2022 Creatinine [Mass/Vol] 1.82 mg/dL High 0.50 - 0.90 mg/dL [facility] GFR/1.73 sq M.predicted MDRD (S/P/Bld) [Vol rate/Area] 32 mL/min/{1.73_m2} Low - PINF [facility] Comment on above: Effective Apr 30, 2022 These results are not intended for use in patients <18 years of age. eGFR results are calculated without a race factor using the 2020 CKD-EPI equation. Careful clinical correlation is recommended, particularly when comparing to results calculated using previous equations. The CKD-EPI equation is less accurate in patients with extremes of muscle mass, extra-renal metabolism of creatine, excessive creatine ingestion, or following therapy that affects renal tubular secretion. Interpretation and review of laboratory results Abnormal [facility] Creatinine w/GFRon Creatinine [Mass/Vol] 1.82 mg/dL High 0.50-0.90 [facility] Comment on above: Performed By: #### C DP, LIVP, CREG, SED #### [facility] [address] [place] [address] Dog Races Manager: Chip Andino MD GFR/1.73 sq M.predicted among non-blacks MDRD (S/P/Bld) [Vol rate/Area] 32 mL/min/{1.73_m2} Low >60 [facility] Comment on above: Result Comment: Effective Apr 30, 2022 These results are not intended for use in patients <18 years of age. eGFR results are calculated without a race factor using the 2020 CKD-EPI equation. Careful clinical correlation is recommended, particularly when comparing to results calculated using previous equations. The CKD-EPI equation is less accurate in patients with extremes of muscle mass, extra-renal metabolism of creatine, excessive creatine ingestion, or following therapy that affects renal tubular secretion. Performed By: #### C DP, LIVP, CREG, SED #### [facility] [address] [place] [address] Dog Races Manager: Chip Andino MD Hepatic Function Panelon Albumin [Mass/Vol] 4.3 g/dL 3.5 - 5.2 g/dL [facility] Albumin/Globulin [Mass ratio] 1.5 {ratio} 1.0 - 2.5 [facility] ALP (Bld) [Catalytic activity/Vol] 91 U/L 35 - 104 U/L [facility] ALT [Catalytic activity/Vol] 9 U/L 5 - 33 U/L [facility] AST [Catalytic activity/Vol] 18 U/L NINF - 32 U/L [facility] Bilirubin [Mass/Vol] mg/dL Low 0.3 - 1 .2 mg/dL [facility] Bilirubin, Indirect Can not be calculated 0.00 - 1.00 mg/dL [facility] Bilirubin.indirect [Mass/Vol] mg/dL NINF - 0.31 mg/dL [facility] Interpretation and review of laboratory results Abnormal [facility] Protein [Mass/Vol] 7.2 g/dL 6.4 - 8.3 g/dL [facility] Liver Profileon 06-11-2022 Bilirubin [Mass/Vol] mg/dL Low 0.3-1.2 [facility] Comment on above: Performed By: #### C DP, LIVP, CREG, SED #### [address] [place] [address] Dog Races Manager: Chip Andino MD Bilirubin, Indirect Can not be calculated Normal 0.00- 1.00 [facility] Comment on above: Performed By: #### C DP, LIVP, CREG, SED #### [address] [place] [address] Dog Races Manager: Chip Andino MD Albumin [Mass/Vol] 4.3 g/dL Normal 3.5-5.2 [facility] Comment on above: Performed By: #### C DP, LIVP, CREG, SED #### [address] [place] [address] Dog Races Manager: Chip Andino MD Albumin/Glob Ratio 1.5 Normal 1.0-2.5 [facility] Comment on above: Performed By: #### C DP, LIVP, CREG, SED #### [address] [place] [address] Dog Races Manager: Chip Andino MD Alkaline Phos 91 U/L Normal 35-104 [facility] Comment on above: Performed By: #### C DP, LIVP, CREG, SED #### [address] [place] [address] Dog Races Manager: Chip Andino MD ALT [Catalytic activity/Vol] 9 U/L Normal 5-33 [facility] Comment on above: Performed By: #### C DP, LIVP, CREG, SED #### [address] [place], [place] [id number] Dog Races Manager: Chip Andino MD AST [Catalytic activity/Vol] 18 U/L Normal <32 [facility] Comment on above: Performed By: #### C DP, LIVP, CREG, SED #### [address] [place], [facility]83 Dog Races Manager: Chip Andino MD Bilirubin.indirect [Mass/Vol] mg/dL Normal <0.31 [facility] Comment on above: Performed By: #### C DP, LIVP, CREG, SED #### [address] [place], [facility]83 Dog Races Manager: Chip Andino MD Protein [Mass/Vol] 7.2 g/dL Normal 6.4-8.3 [facility] Comment on above: Performed By: #### C DP, LIVP, CREG, SED #### [address] [place] [address] Dog Races Manager: Chip Andino MD Sedimentation Rateon 022 Sedimentation Rate 15 mm/Hr Normal 0-30 [facility] Comment on above: Performed By: #### C DP, LIVP, CREG, SED #### [address] [place] [address] Dog Races Manager: Chip Andino MD Sed Rate 15 [facility] XR FOOT RIGHT (MIN 3 VIEWS)o n 05-20-2022 XR FOOT RIGHT (MIN 3 VIEWS) EXAMINATION: THREE XRAY VIEWS OF THE RIGHT FOOT 05/20/2022 11:33 am COMPARISON: None. HISTORY: ORDERING SYSTEM PROVIDED HISTORY: pain TECHNOLOGIST PROVIDED HISTORY: pain no reported injury FINDINGS: Severe hallux valgus deformity is noted with medial angulation of 47 degrees. Moderate arthritic changes are present in the interphalangeal joints with advanced arthritis in the 1st metatarsal-phalangeal joint. Mild to moderate arthritic change in the midfoot is noted. Patient has increased sclerosis along the proximal portion of the navicular bone, chronic in appearance which may be related to chronic or remote healed trauma. Plantar calcaneal spur and Vinny's deformity are noted. No acute fracture or dislocation. LisFranc relationship is preserved. IMPRESSION: Severe hallux valgus deformity and arthritic changes are noted as above. No acute osseous abnormality. Interpreted by: Martha Chi MD Signed by: Martha Chi MD 05/20/22 Final result Normal [facility] CBC with Auto Differentialon 04-11-2022 Absolute Eos # 0.49 High [facility] Absolute Immature Granulocyte 0.04 [facility] Absolute Lymph # 2.85 [facility] Absolute Tripp # 0.95 [facility] Basophils (Bld) [#/Vol] 0.07 10*3/uL [facility] Basophils/100 WBC (Bld) 1 % 0 - 2 % [facility] Eosinophils/100 WBC (Bld) 5 % High 1 - 4 % [facility] Hematocrit (Bld) [Volume fraction] 38.5 % 36.3 - 47.1 % [facility] Hemoglobin (Bld) [Mass/Vol] 12.4 g/dL 11.9 - 15.1 g/dL [facility] Immature granulocytes/100 WBC (Bld) 0 % 0 [facility] Interpretation and review of laboratory results Abnormal [facility] Lymphocytes/100 WBC (Bld) 26 % 24 - 43 % [facility] MCH (RBC) [Entitic mass] 27.6 pg 25.2 - 33.5 pg [facility] MCHC (RBC) [Mass/Vol] 32.2 g/dL 28.4 - 34.8 g/dL [facility] MCV (RBC) [Entitic vol] 85.7 fL 82.6 - 102.9 fL [facility] Monocytes/100 WBC (Bld) 9 % 3 - 12 % B ON [facility] NRBC Automated 0.0 0.0 per 100 WBC [facility] Platelet distribution width (Bld) [Ratio] 12.3 % 11.8 - 14.4 % [facility] Platelet mean volume (Bld) [Entitic vol] 11.1 fL 8.1 - 13.5 fL [facility] Platelets (Bld) [#/Vol] 297 10*3/uL [facility] RBC (Bld) [#/Vol] 4.49 10*6/uL 3.95 - 5.1 1 m/uL [facility] Segmented neutrophils/100 WBC (Bld) 59 % 36 - 65 % [facility] Segs Absolute 6.41 [facility] WBC (Bld) [#/Vol] 10.8 10*3/uL [facility] CBC with Diffon 04-11-2022 Abs. Basophil 0.07 k/uL Normal 0.00-0.20 [facility] Comment on above: Performed By: #### C DP, SED, CREG, LIVP #### [address] [place] [address] Dog Races Manager: Chip Andino MD Abs.Imm.Granulocyte 0.04 k/uL Normal 0.00-0.30 [facility] Comment on above: Performed By: #### C DP, SED, CREG, LIVP #### [address] [place] [address] Dog Races Manager: Chip Andino MD Abs.Neutrophil (Seg) 6.41 k/uL Normal 1.50-8.10 [facility] Comment on above: Performed By: #### C DP, SED, CREG, LIVP #### [address] [place] [address] Dog Races Manager: Chip Andino MD Basophils/100 WBC (Bld) 1 % Normal 0-2 [facility] Comment on above: Performed By: #### C DP, SED, CREG, LIVP #### [address] [place], [place] [address] Dog Races Manager: Chip Andino MD Eosinophils (Bld) [#/Vol] 0.49 10*3/uL High 0.00-0.44 [facility] Comment on above: Performed By: #### C DP, SED, CREG, LIVP #### [address] [place], [place] [address] Dog Races Manager: Chip Andino MD Eosinophils/100 WBC (Bld) 5 % High 1-4 [facility] Comment on above: Performed By: #### C DP, SED, CREG, LIVP #### [address] [place], [facility]83 Dog Races Manager: Chip Andino MD Erythrocyte distribution width (RBC) [Ratio] 12.3 % Normal 11.8-14.4 [facility] Comment on above: Performed By: #### C DP, SED, CREG, LIVP #### [address] [place], [place] [address] Dog Races Manager: Chip Andino MD Hematocrit (Bld) [Volume fraction] 38.5 % Normal 36.3-47.1 [facility] Comment on above: Performed By: #### C DP, SED, CREG, LIVP #### [address] [place], [place] [address] Dog Races Manager: Chip Andino MD Hemoglobin (Bld) [Mass/Vol] 12.4 g/dL Normal 11.9-15.1 [facility] Comment on above: Performed By: #### C DP, SED, CREG, LIVP #### [address] [place], [facility]83 Dog Races Manager: Chip Andino MD Immature granulocytes/100 WBC (Bld) 0 % Normal 0 [facility] Comment on above: Performed By: #### C DP, SED, CREG, LIVP #### [address] [place], [place] [id number] Dog Races Manager: Chip Andino MD Lymphocytes (Bld) [#/Vol] 2.85 10*3/uL Normal 1.10-3.70 [facility] Comment on above: Performed By: #### C DP, SED, CREG, LIVP #### [address] [place], [place] [id number] Dog Races Manager: Chip Andino MD Lymphocytes/100 WBC (Bld) 26 % Normal 24-43 [facility] Comment on above: Performed By: #### C DP, SED, CREG, LIVP #### [address] [place], [facility]83 Dog Races Manager: Chip Andino MD MCH (RBC) [Entitic mass] 27.6 pg Normal 25.2-33.5 [facility] Comment on above: Performed By: #### C DP, SED, CREG, LIVP #### [address] [place], [place] [id number] Dog Races Manager: Chip Andino MD MCHC (RBC) [Mass/Vol] 32.2 g/dL Normal 28.4-34.8 [facility] Comment on above: Performed By: #### C DP, SED, CREG, LIVP #### [address] [place], [place] [id number] Dog Races Manager: Chip Andino MD MCV (RBC) [Entitic vol] 85.7 fL Normal 82.6-102.9 [facility] Comment on above: Performed By: #### C DP, SED, CREG, LIVP #### [address] [place], [place] [id number] Dog Races Manager: Chip Andino MD Monocytes (Bld) [#/Vol] 0.95 10*3/uL Normal 0.10-1.20 [facility] Comment on above: Performed By: #### C DP, SED, CREG, LIVP #### [facility] [address] [place], [place] [id number] Dog Races Manager: Chip Andino MD Monocytes/100 WBC (Bld) 9 % Normal 3-12 [facility] Comment on above: Performed By: #### C DP, SED, CREG, LIVP #### [address] [place], [place] [id number] Dog Races Manager: Chip Andino MD Neutrophil (Seg) 59 % Normal 36-65 [facility] Comment on above: Performed By: #### C DP, SED, CREG, LIVP #### [address] [place], [place] [id number] Dog Races Manager: Chip Andino MD NRBC Automated 0.0 per 100 WBC Normal 0.0 [facility] Comment on above: Performed By: #### C DP, SED, CREG, LIVP #### [address] [place], [place] [id number] Dog Races Manager: Chip Andino MD Platelet mean volume (Bld) [Entitic vol] 11.1 fL Normal 8.1-13.5 [facility] Comment on above: Performed By: #### C DP, SED, CREG, LIVP #### [address] [place], [place] [id number] Dog Races Manager: Chip Andino MD Platelets (Bld) [#/Vol] 297 10*3/uL Normal 138-453 [facility] Comment on above: Performed By: #### C DP, SED, CREG, LIVP #### [address] [place], [place] [id number] Dog Races Manager: Chip Andino MD RBC (Bld) [#/Vol] 4.49 10*6/uL Normal 3.95-5.11 [facility] Comment on above: Performed By: #### C DP, SED, CREG, LIVP #### [facility] [address] [place] [address] Dog Races Manager: Chip Andino MD WBC (Bld) [#/Vol] 10.8 10*3/uL Normal 3.5-11.3 [facility] Comment on above: Performed By: #### C DP, SED, CREG, LIVP #### [facility] [address] [place] [address] Dog Races Manager: Chip Andino MD Creatinineon 04-11-2022 Creatinine [Mass/Vol] 2.38 mg/dL High 0.5 - 0.9 mg/dL [facility] GFR 25 mL/min Low 60 - PI NF mL/min [facility] GFR Non- 21 mL/min Low 60 - PINF mL/min [facility] Interpretation and review of laboratory results Abnormal [facility] Creatinine w/GFRon 2 (cont.) Normal [facility] Comment on above: Result Comment: Aver age GFR for 50-59 years old: 93 mL/min/1.73sq m Chronic Kidney Disease: <60 mL/min/1.73sq m Kidney failure: <15 mL/min/1.73sq m eGFR calculated using average adult body mass. Additional eGFR calculator available at: http://www.Presentigo.com/multiple_crcl_2012.htm Performed By: #### C DP, SED, CREG, LIVP #### [facility] [address] [place] [address] Dog Races Manager: Chip Andino MD Creatinine [Mass/Vol] 2.38 mg/dL High 0.50-0.90 [facility] Comment on above: Performed By: #### C DP, SED, CREG, LIVP #### [facility] [address] [place] [address] Dog Races Manager: Chip Andino MD GFR, Amer 25 mL/min Low >60 [facility] Comment on above: Performed By: #### C DP, SED, CREG, LIVP #### [facility] [address] [place], [facility]83 Dog Races Manager: Chip Andino MD GFR,non Amer 21 mL/min Low >60 [facility] Comment on above: Performed By: #### C DP, SED, CREG, LIVP #### [address] [place], [place] [id number] Dog Races Manager: Chip Andino MD Staging: Normal [facility] Comment on above: Result Comment: Stag e 1: Some kidney damage normal GFR Stage 2: Mild kidney damage GFR 60-89 Stage 3: Moderate kidney damage GFR 30-59 Stage 4: Severe kidney damage GFR 15-29 Stage 5: Severe kidney damage GFR <15 ESRD - chronic treatment by dialysis or transplant Performed By: #### C DP, SED, CREG, LIVP #### [address] [place] [address] Dog Races Manager: Chip Andino MD Hepatic Function Panelon Albumin [Mass/Vol] 4.5 g/dL 3.5 - 5.2 g/dL [facility] Albumin/Globulin [Mass ratio] 1.5 {ratio} 1 - 2.5 [facility] ALP (Bld) [Catalytic activity/Vol] 106 U/L High 35 - 104 U/L [facility] ALT [Catalytic activity/Vol] 16 U/L 5 - 33 U/L [facility] AST [Catalytic activity/Vol] 18 U/L NINF - 32 U/L [facility] Bilirubin [Mass/Vol] 0.2 mg/dL Low 0.3 - 1 .2 mg/dL [facility] Bilirubin, Indirect Can not be calculated 0 - 1 mg/dL [facility] Bilirubin.indirect [Mass/Vol] mg/dL NINF - 0.31 mg/dL [facility] Free PSA/Total PSA [Mass fraction] 7.5 g/dL 6.4 - 8.3 g/dL [facility] Interpretation and review of laboratory results Abnormal [facility] Laboratory - Chemistry and C hemistry - challengeon 04-11-2022 GFR/1.73 sq M.predicted MDRD (S/P/Bld) [Vol rate/Area] [facility] Comment on above: Average GFR for 50-5 9 years old: 93 mL/min/1.73sq m Chronic Kidney Disease: <60 mL/min/1.73sq m Kidney failure: <15 mL/min/1.73sq m eGFR calculated using average adult body mass. Additional eGFR calculator available at: http://www.[employer]ark/multiple_crcl_2012.htm Stage 1: Some kidney damage normal GFR Stage 2: Mild kidney damage GFR 60-89 Stage 3: Moderate kidney damage GFR 30-59 Stage 4: Severe kidney damage GFR 15-29 Stage 5: Severe kidney damage GFR <15 ESRD - chronic treatment by dialysis or transplant Liver Profileon 04-11-2022 AST [Catalytic activity/Vol] 18 U/L Normal <32 [facility] Comment on above: Performed By: #### C DP, SED, CREG, LIVP #### [facility] [address] [place] [address] [place] [address] Dog Races Manager: Chip Andino MD Albumin [Mass/Vol] 4.5 g/dL Normal 3.5-5.2 [facility] Comment on above: Performed By: #### C DP, SED, CREG, LIVP #### [facility] [address] [place] [address] Dog Races Manager: Chip Andino MD Albumin/Glob Ratio 1.5 Normal 1.0-2.5 [facility] Comment on above: Performed By: #### C DP, SED, CREG, LIVP #### [facility] [address] [place], [place] [id number] Dog Races Manager: Chip Andino MD Alkaline Phos 106 U/L High 35-104 [facility] Comment on above: Performed By: #### C DP, SED, CREG, LIVP #### [address] [place], [place] [id number] Dog Races Manager: Chip Andino MD ALT [Catalytic activity/Vol] 16 U/L Normal 5-33 [facility] Comment on above: Performed By: #### C DP, SED, CREG, LIVP #### [address] [place], [place] [id number] Dog Races Manager: Chip Andino MD Bilirubin [Mass/Vol] 0.2 mg/dL Low 0.3-1.2 [facility] Comment on above: Performed By: #### C DP, SED, CREG, LIVP #### [address] [place], [facility]83 Dog R[employer] Manager: Chip Andino MD Bilirubin, Indirect Can not be calculated Normal 0.00- 1.00 [facility] Comment on above: Performed By: #### C DP, SED, CREG, LIVP #### [address] [place], [place] [id number] Dog R[employer] Manager: Chip Andino MD Bilirubin.indirect [Mass/Vol] mg/dL Normal <0.31 [facility] Comment on above: Performed By: #### C DP, SED, CREG, LIVP #### [address] [place], [place] [id number] Dog [employer] Manager: Chip Andino MD Protein [Mass/Vol] 7.5 g/dL Normal 6.4-8.3 [facility] Comment on above: Performed By: #### C DP, SED, CREG, LIVP #### [address] [place] [address] Dog R[employer] Manager: Chip Andino MD Sedimentation Rateon 022 Sedimentation Rate 12 mm/Hr Normal 0-30 [facility] Comment on above: Performed By: #### C DP, SED, CREG, LIVP #### [facility] [address] [place] [address] Dog Races Manager: Chip Andino MD Sed Rate 12 [facility] CBC with Auto Differentialon 02-15-2022 Absolute Eos # 0.17 [place] [facility] Absolute Immature Granulocyte [facility] Absolute Lymph # 2.35 [facility] Absolute Tripp # 0.82 [facility] Basophils (Bld) [#/Vol] 0.04 10*3/uL [facility] Basophils/100 WBC (Bld) 1 % 0 - 2 % B ON [facility] Eosinophils/100 WBC (Bld) 3 % 1 - 4 % [facility] Hematocrit (Bld) [Volume fraction] 36.8 % 36.3 - 47.1 % [facility] Hemoglobin (Bld) [Mass/Vol] 12.1 g/dL 11.9 - 15.1 g/dL [facility] Immature granulocytes/100 WBC (Bld) 0 % 0 [facility] Interpretation and review of laboratory results Abnormal [facility] Lymphocytes/100 WBC (Bld) 43 % 24 - 43 % [facility] MCH (RBC) [Entitic mass] 28.5 pg 25.2 - 33.5 pg [facility] MCHC (RBC) [Mass/Vol] 32.9 g/dL 28.4 - 34.8 g/dL [facility] MCV (RBC) [Entitic vol] 86.8 fL 82.6 - 102.9 fL [facility] Monocytes/100 WBC (Bld) 15 % High 3 - 12 % B ON [facility] NRBC Automated 0.0 0.0 per 100 WBC [facility] Platelet distribution width (Bld) [Ratio] 13.5 % 11.8 - 14.4 % [facility] Platelet mean volume (Bld) [Entitic vol] 10.0 fL 8.1 - 13.5 fL [facility] Platelets (Bld) [#/Vol] 304 10*3/uL [facility] RBC (Bld) [#/Vol] 4.24 10*6/uL 3.95 - 5.1 1 m/uL [facility] Segmented neutrophils/100 WBC (Bld) 38 % 36 - 65 % [facility] Segs Absolute 2.10 [facility] WBC (Bld) [#/Vol] 5.5 10*3/uL [facility] CBC with Diffon 02-15-2022 Abs. Basophil 0.04 k/uL Normal 0.00-0.20 [facility] Comment on above: Performed By: #### L IVP, CDP, SED, CREG ####[address] [place] [address] Lab Director: Chip Andino MD Abs.Imm.Granulocyte <0.03 Normal 0.00-0.30 [facility] Comment on above: Performed By: #### L IVP, CDP, SED, CREG ####[address] [place] [id number] Lab Director: Chip Andino MD Abs.Neutrophil (Seg) 2.10 k/uL Normal 1.50-8.10 [facility] Comment on above: Performed By: #### L IVP, CDP, SED, CREG ####[address] , [facility]83 Lab Director: Chip Andino MD Basophils/100 WBC (Bld) 1 % Normal 0-2 [facility] Comment on above: Performed By: #### L IVP, CDP, SED, CREG ####[address] [place] [id number] Lab Director: Chip Andino MD Eosinophils (Bld) [#/Vol] 0.17 10*3/uL Normal 0.00-0.44 [facility] Comment on above: Performed By: #### L IVP, CDP, SED, CREG ####[address] , [place] [id number] Lab Director: Chip Andino MD Eosinophils/100 WBC (Bld) 3 % Normal 1-4 [facility] Comment on above: Performed By: #### L IVP, CDP, SED, CREG ####[address] , [place] [id number] Lab Director: Chip Andino MD Erythrocyte distribution width (RBC) [Ratio] 13.5 % Normal 11.8-14.4 [facility] Comment on above: Performed By: #### L IVP, CDP, SED, CREG ####[address] , [facility]83 Lab Director: Chip Andino MD Hematocrit (Bld) [Volume fraction] 36.8 % Normal 36.3-47.1 [facility] Comment on above: Performed By: #### L IVP, CDP, SED, CREG ####[address] [place] [address] Lab Director: Chip Andino MD Hemoglobin (Bld) [Mass/Vol] 12.1 g/dL Normal 11.9-15.1 [facility] Comment on above: Performed By: #### L IVP, CDP, SED, CREG ####[address] [place] [address] Lab Director: Chip Andino MD Immature granulocytes/100 WBC (Bld) 0 % Normal 0 [facility] Comment on above: Performed By: #### L IVP, CDP, SED, CREG ####[address] , [facility]83 Lab Director: Chip Andino MD Lymphocytes (Bld) [#/Vol] 2.35 10*3/uL Normal 1.10-3.70 [facility] Comment on above: Performed By: #### L IVP, CDP, SED, CREG ####[address] , [facility]83[facility])[phone] Director: Chip Andino MD Lymphocytes/100 WBC (Bld) 43 % Normal 24-43 [facility] Comment on above: Performed By: #### L IVP, CDP, SED, CREG ####[address] , [place] [address])[phone] Director: Chip Andino MD MCH (RBC) [Entitic mass] 28.5 pg Normal 25.2-33.5 [facility] Comment on above: Performed By: #### L IVP, CDP, SED, CREG ####[address] , [facility]77([facility])[phone] Director: Chip Andino MD MCHC (RBC) [Mass/Vol] 32.9 g/dL Normal 28.4-34.8 [facility] Comment on above: Performed By: #### L IVP, CDP, SED, CREG ####[address] , [facility]97([facility])[phone] Director: Chip Andino MD MCV (RBC) [Entitic vol] 86.8 fL Normal 82.6-102.9 [facility] Comment on above: Performed By: #### L IVP, CDP, SED, CREG ####[address] , [facility]84([facility])[phone] Director: Chip Andino MD Monocytes (Bld) [#/Vol] 0.82 10*3/uL Normal 0.10-1.20 [facility] Comment on above: Performed By: #### L IVP, CDP, SED, CREG ####[address] , [place] [id number] Lab Director: Chip Andino MD Monocytes/100 WBC (Bld) 15 % High 3-12 [facility] Comment on above: Performed By: #### L IVP, CDP, SED, CREG ####[address] , [place] [id number] Lab Director: Chip Andino MD Neutrophil (Seg) 38 % Normal 36-65 [facility] Comment on above: Performed By: #### L IVP, CDP, SED, CREG ####[address] , [place] [id number] Lab Director: Chip Andino MD NRBC Automated 0.0 per 100 WBC Normal 0.0 [facility] Comment on above: Performed By: #### L IVP, CDP, SED, CREG ####[address] , [place] [id number] Lab Director: Chip Andino MD Platelet mean volume (Bld) [Entitic vol] 10.0 fL Normal 8.1-13.5 [facility] Comment on above: Performed By: #### L IVP, CDP, SED, CREG ####[address] , [place] [id number] Lab Director: Chip Andino MD Platelets (Bld) [#/Vol] 304 10*3/uL Normal 138-453 [facility] Comment on above: Performed By: #### L IVP, CDP, SED, CREG ####[address] , [place] [id number] Lab Director: Chip Andino MD RBC (Bld) [#/Vol] 4.24 10*6/uL Normal 3.95-5.11 [facility] Comment on above: Performed By: #### L IVP, CDP, SED, CREG ####[address] , [place] [id number] lab Director: Chip Andino MD WBC (Bld) [#/Vol] 5.5 10*3/uL Normal 3.5-11.3 [facility] Comment on above: Performed By: #### L IVP, CDP, SED, CREG ####[address] , [place] [id number] lab Director: Chip Andino MD Creatinineon 02-15-2022 Creatinine [Mass/Vol] 1.2 mg/dL High 0.5 - 0.9 mg/dL [facility] GFR 56 mL/min Low 60 - PI NF mL/min [facility] GFR Non- 46 mL/min Low 60 - PINF mL/min [facility] Creatinine w/GFRon 2 (cont.) Normal [facility] Comment on above: Result Comment: Aver age GFR for 50-59 years old: 93 mL/min/1.73sq m Chronic Kidney Disease: <60 mL/min/1.73sq m Kidney failure: <15 mL/min/1.73sq m eGFR calculated using average adult body mass. Additional eGFR calculator available at: http://www.[employer]/multiple_crcl_2012.htm Performed By: #### L IVP, CDP, SED, CREG ####[address] , [place] [id number] lab Director: Chip Andino MD Creatinine [Mass/Vol] 1.20 mg/dL High 0.50-0.90 [facility] Comment on above: Performed By: #### L IVP, CDP, SED, CREG ####[address] [place] [address] lab Director: Chip Andino MD GFR, Amer 56 mL/min Low >60 [facility] Comment on above: Performed By: #### L IVP, CDP, SED, CREG ####[facility] , [place] [id number] Lab Director: Chip Andino MD GFR,non Amer 46 mL/min Low >60 [facility] Comment on above: Performed By: #### L IVP, CDP, SED, CREG ####[facility] [place], [place] [address] lab Director: Chip Andino MD Staging: Normal [facility] Comment on above: Result Comment: Stag e 1: Some kidney damage normal GFR Stage 2: Mild kidney damage GFR 60-89 Stage 3: Moderate kidney damage GFR 30-59 Stage 4: Severe kidney damage GFR 15-29 Stage 5: Severe kidney damage GFR <15 ESRD - chronic treatment by dialysis or transplant Performed By: #### L IVP, CDP, SED, CREG ####[address] [place] [id number] lab Director: Chip Andino MD Hepatic Function Panelon Albumin [Mass/Vol] 4.5 g/dL 3.5 - 5.2 g/dL [facility] Albumin/Globulin [Mass ratio] 1.5 {ratio} 1 - 2.5 [facility] ALP (Bld) [Catalytic activity/Vol] 96 U/L 35 - 104 U/L [facility] ALT [Catalytic activity/Vol] 15 U/L 5 - 33 U/L [facility] AST [Catalytic activity/Vol] 25 U/L NINF - 32 U/L [facility] Bilirubin [Mass/Vol] 0.19 mg/dL Low 0.3 - 1 .2 mg/dL [facility] Bilirubin, Indirect Can not be calculated 0 - 1 mg/dL [facility] Bilirubin.indirect [Mass/Vol] mg/dL NINF - 0.31 mg/dL [facility] Free PSA/Total PSA [Mass fraction] 7.6 g/dL 6.4 - 8.3 g/dL [facility] Laboratory - Chemistry and C hemistry - challengeon 02-15-2022 GFR/1.73 sq M.predicted MDRD (S/P/Bld) [Vol rate/Area] SALLY SANDOVAL [facility] Comment on above: Average GFR for 50-5 9 years old: 93 mL/min/1.73sq m Chronic Kidney Disease: <60 mL/min/1.73sq m Kidney failure: <15 mL/min/1.73sq m eGFR calculated using average adult body mass. Additional eGFR calculator available at: http://www.[employer]/multiple_crcl_2012.htm Stage 1: Some kidney damage normal GFR Stage 2: Mild kidney damage GFR 60-89 Stage 3: Moderate kidney damage GFR 30-59 Stage 4: Severe kidney damage GFR 15-29 Stage 5: Severe kidney damage GFR <15 ESRD - chronic treatment by dialysis or transplant Liver Profileon 02-15-2022 Albumin [Mass/Vol] 4.5 g/dL Normal 3.5-5.2 [facility] Comment on above: Performed By: #### L IVP, CDP, SED, CREG ####[address] [place] [address] Lab Director: Chip Andino MD Albumin/Glob Ratio 1.5 Normal 1.0-2.5 [facility] Comment on above: Performed By: #### L IVP, CDP, SED, CREG ####[address] [place] [address] Lab Director: Chip Andino MD Alkaline Phos 96 U/L Normal 35-104 [facility] Comment on above: Performed By: #### L IVP, CDP, SED, CREG ####[address] [place] [address] lab Director: Chip Andino MD ALT [Catalytic activity/Vol] 15 U/L Normal 5-33 [facility] Comment on above: Performed By: #### L IVP, CDP, SED, CREG ####[address] [place] [address] Lab Director: Chip Andino MD AST [Catalytic activity/Vol] 25 U/L Normal <32 [facility] Comment on above: Performed By: #### L IVP, CDP, SED, CREG ####[address] , [place] [id number] lab Director: Chip Andino MD Bilirubin [Mass/Vol] 0.19 mg/dL Low 0.3-1.2 [facility] Comment on above: Performed By: #### L IVP, CDP, SED, CREG ####[address] , [place] [id number] lab Director: Chip Andino MD Bilirubin, Indirect Can not be calculated Normal 0.00- 1.00 [facility] Comment on above: Performed By: #### L IVP, CDP, SED, CREG ####[address] , [place] [id number] Lab Director: Chip Andino MD Bilirubin.indirect [Mass/Vol] mg/dL Normal <0.31 [facility] Comment on above: Performed By: #### L IVP, CDP, SED, CREG ####[address] , [place] [id number] Lab Director: Chip Andino MD Protein [Mass/Vol] 7.6 g/dL Normal 6.4-8.3 [facility] Comment on above: Performed By: #### L IVP, CDP, SED, CREG ####[address] , [place] [id number] Lab Director: Chip Andino MD No Panel Informationon 02-15 Interpretation and review of laboratory results Abnormal [facility] Sedimentation Rateon 022 Sedimentation Rate 23 mm/Hr Normal 0-30 [facility] Comment on above: Performed By: #### L IVP, CDP, SED, CREG ####[facility] [place] [address] [facility] Director: Chip Andino MD Sed Rate 23 [facility] Patient Educationon 02-10-20 22 Patient Education Obstetrics and Gynecology Overactive Bladder, Adult Overactive bladder refers to a condition in which a person has a sudden need to pass urine. The person may leak urine if he or she cannot get to the bathroom fast enough (urinary incontinence). A person with this condition may also wake up several times in the night to go to the bathroom. Overactive bladder is associated with poor nerve signals between your bladder and your brain. Your bladder may get the signal to empty before it is full. You may also have very sensitive muscles that make your bladder squeeze too soon. These symptoms might interfere with daily work or social activities. What are the causes? This condition may be associated with or caused by: ? Urinary tract infection. ? Infection of nearby tissues, such as the prostate. ? Prostate enlargement. ? Surgery on the uterus or urethra. ? Bladder stones, inflammation, or tumors. ? Drinking too much caffeine or alcohol. ? Certain medicines, especially medicines that get rid of extra fluid in the body (diuretics). ? Muscle or nerve weakness, especially from: ? A spinal cord injury. ? Stroke. ? Multiple sclerosis. ? Parkinson's disease. ? Diabetes. ? Constipation. What increases the risk? You may be at greater risk for overactive bladder if you: ? Are an older adult. ? Smoke. ? Are going through menopause. ? Have prostate problems. ? Have a neurological disease, such as stroke, dementia, Parkinson's disease, or multiple sclerosis (MS). ? Eat or drink things that irritate the bladder. These include alcohol, spicy food, and caffeine. ? Are overweight or obese. What are the signs or symptoms? Symptoms of this condition include: ? Sudden, strong urge to urinate. ? Leaking urine. ? Urinating 8 or more times a day. ? Waking up to urinate 2 or more times a night. How is this diagnosed? Your health care provider may suspect overactive bladder based on your symptoms. He or she will diagnose this condition by: ? A physical exam and medical history. ? Blood or urine tests. You might need bladder or urine tests to help determine what is causing your overactive bladder. You might also need to see a health care provider who specializes in urinary tract problems (urologist). How is this treated? Treatment for overactive bladder depends on the cause of your condition and whether it is mild or severe. You can also make lifestyle changes at home. Options include: ? Bladder training. This may include: ? Learning to control the urge to urinate by following a schedule that directs you to urinate at regular intervals (timed voiding). ? Doing Kegel exercises to strengthen your pelvic floor muscles, which support your bladder. Toning these muscles can help you control urination, even if your bladder muscles are overactive. ? Special devices. This may include: ? Biofeedback, which uses sensors to help you become aware of your body's signals. ? Electrical stimulation, which uses electrodes placed inside the body (implanted) or outside the body. These electrodes send gentle pulses of electricity to strengthen the nerves or muscles that control the bladder. ? Women may use a plastic device that fits into the vagina and supports the bladder (pessary). ? Medicines. ? Antibiotics to treat bladder infection. ? Antispasmodics to stop the bladder from releasing urine at the wrong time. ? Tricyclic antidepressants to relax bladder muscles. ? Injections of botulinum toxin type A directly into the bladder tissue to relax bladder muscles. ? Lifestyle changes. This may include: ? Weight loss. Talk to your health care provider about weight loss methods that would work best for you. ? Diet changes. This may include reducing how much alcohol and caffeine you consume, or drinking fluids at different times of the day. ? Not smoking. Do not use any products that contain nicotine or tobacco, such as cigarettes and e-cigarettes. If you need help quitting, ask your health care provider. ? Surgery. ? A device may be implanted to help manage the nerve signals that control urination. ? An electrode may be implanted to stimulate electrical signals in the bladder. ? A procedure may be done to change the shape of the bladder. This is done only in very severe cases. Follow these instructions at home: Lifestyle ? Make any diet or lifestyle changes that are recommended by your health care provider. These may include: ? Drinking less fluid or drinking fluids at different times of the day. ? Cutting down on caffeine or alcohol. ? Doing Kegel exercises. ? Losing weight if needed. ? Eating a healthy and balanced diet to prevent constipation. This may include: ? Eating foods that are high in fiber, such as fresh fruits and vegetables, whole grains, and beans. ? Limiting foods that are high in fat and processed sugars, such as fried and sweet foods. General instructions ? Take ove (more content not included)... Normal [facility] Reminderson 02-09-2022 Reminders - From: Lynda Boland To: SANDOR - Millie Pacheco; Sent: 02/09/2022 10:23:42 EDT Show up: 12/27/2022 10:23:00 EDT Subject: Recall for Renal US Due Date/Time: 01/26/2023 10:23:00 EDT Reminder/Recall Pleas call and schedule Patient for her SUSAN prior to 02/04/23 follow up. Normal [facility] Urology Office/Clinic Noteon 02-09-2022 Urology Office/Clinic Note Chief Complaint 6 month f/u HPI Staff Pt is here for 6 month f/u. Previous dx of OAB (Botox 03/28/21) and incomplete bladder emptying. Pt continues taking Tolterodine 4mg 2 tabs qd. Dysuria: no Incomplete bladder emptying: she feels she is emptying better but has to reposition and push on her bladder sometimes Hematuria: no Frequency: no Urgency: no Nocturia: 1x Stream: good stream no straining Leaking: no Post void dripping: no Wearing pads/ Depends: no Urge incontinence: no Stress incontinence: no Incontinence without Sensory Awareness: no Abdominal pain: no Flank pain: no Sexual complaints: no History of Present Illness Tests reviewed: reviewed UA I have reviewed the previous health record information and history for this patient from Dr. Pacheco. I have reviewed and verified the staff HPI to be accurate for this encounter. There have been no associated fever, chills, flank pain, or blood in the urine. Denies any urinary infections since last encounter. Review of Systems PHQ Score Initial Depression Screen Score: 0 ROS - Provider Constitutional: denies weight loss, denies hot flashes. Eyes: denies eye problems. Gastrointestinal: denies nausea, denies vomiting. Cardiovascular: denies chest pain or angina. Integumentary: no dryness Musculoskeletal: denies musculoskeletal symptoms. ENMT: denies otolaryngeal symptoms. Respiratory: no shortness of breath. Heme/Lymph: denies easy bleeding tendency, denies easy bruising tendency. Psychiatric: no confusion, no anxiety. Genitourinary: denies vaginal discharge, denies incontinence, denies dysuria, denies hematuria, denies urinary frequency, denies amenorrhea, denies menorrhagia, denies abnormal bleeding, denies pelvic pain, denies genital sores, and denies decreased libido. Physical Exam Vitals & Measurements HR: 80(Peripheral) RR: 16 BP: 113/81 HT: 152.4 cm HT: 152.4 cm WT: 78.4 kg WT: 78.4 kg BMI: 33.76 General Appearance: alert , no acute distress, well nourished, well developed female. Genitourinary: bladder nonpalpable, no flank pain. Assessment/Plan 1. OAB (overactive bladder) (N32.81: Overactive bladder) S/p Botox 03/28/21. Pt continues taking Tolterodine ER 4mg 2 tabs qd. Doing well overall. no urgency or leaking. UA clear of infection. All questions/concerns were discussed. Pt to call the office if she encounters any issues prior. Pt. acknowledges understanding. 2. Incomplete bladder emptying (R33.9: Retention of urine, unspecified) Pt feels she is emptying well but she will reposition herself and push on her bladder to fully empty. will do pvr scan next year. Follow-up With When Contact Information JUNIOR JIMENEZ, Frank Lea, URL In [address] [place], [place] [id number]- Additional Instructions: w/ renal US Patient Education Overactive Bladder, Adult I, Kayli Garrido, personally scribed for Dr. Pacheco on 02/09/2022 10:16:37. . Documentation recorded by the geraldoibKayli perry, accurately reflects the services(s) I performed and decisions made by me. Authenticated by Dr. Pacheco on 02/09/2022 10:18:10. Problem List/Past Medical History Ongoing Anemia Anticoagulant long-term use BMI 33.0-33.9,adult GERD (gastroesophageal reflux disease) Heart disease Incomplete bladder emptying OAB (overactive bladder) Personal history of kidney stones Pulmonary hypertension Rheumatoid arthritis Scleroderma Seasonal allergies Ureteral stricture Urge incontinence Historical No qualifying data Procedure/Surgical History Injection of therapeutic substance into bladder wall (03/28/2021), Cystoscopic removal of ureteric stent (04/22/2018), Cystoscopic insertion of ureteric stent (04/03/2018), Carpal tunnel release, section, Colonoscopy, Foot, Tubal ligation. Medications Adcirca aspirin 81 mg Chew Tab carvedilol celecoxib furosemide 40 mg Tab hydrochlorothiazide hydroxychloroquine Iron Chews Nexium Opsumit 10 mg oral tablet, 10 mg= 1 tab(s), Oral, Daily Procardia tolterodine 4 mg Cap-ER, 4 mg= 1 cap(s), Oral, BID, 11 refills Zantac Allergies Augmentin (Rash) amoxicillin (Rash) Social History Tobacco Former smoker, quit more than 30 days ago Tobacco Use:. Never Smokeless Tobacco Use:. Started age 21.0 Years. Stopped age 44 Years., 04/20/2021 Family History Hyperlipidemia: Father. Hypertension: Mother and Father. Primary malignant neoplasm of female genital organ: Mother. Immunizations Vaccine Date Status Comments SARS-CoV-2 (COVID-19) Ad26 vaccine 11/15/2020 Recorded Xceedium and Xceedium Lab Results Ambulatory Point of Care Results Bilirubin Urine Dipstick: Negative (02/09/22 09:55:00) Blood Urine Dipstick: Negative (02/09/22 09:55:00) Glucose Urine Dipstick: Negative (02/09/22 09:55:00) Ketones Urine Dipstick: Negative (02/09/22 09:55:00) Leukocytes Urine Dipstick: (more content not included)... Normal [facility] Comment on above: Result Comment: Elec tronically Signed By: Frank PACHECO MD\.br\Date and Time Signed: 02/09/22 10:18 EDT\.br\Electronically Co-Signed By: Kayli Garrido.wild\Date and Time Co-Signed: 02/09/22 10:16 EDT C3 Complementon 11-27-2021 Complement C3 132 mg/dL 90 - 180 mg/dL [facility] C4 Complementon 11-27-2021 Complement C4 34 mg/dL 10 - 40 mg/dL [facility] CT CHEST HIGH RESOLUTIONon 0 11-27-2021 Radiology Study observation (narrative) Kaitlin perales Work Phone: 1. Mild basilar honeycombing and mild associated bronchiectasis, consistent with UIP pattern. 2. Main pulmonary artery enlargement raise the possibility of pulmonary hypertension. 3. Calcified atheromatous plaque and coronary calcification. [facility] EXAMINATION: CT IMAGES OF THE CHEST WITHOUT CONTRAST, HIGH RESOLUTION 11/27/2021 TECHNIQUE: CT of the chest was performed without the administration of intravenous contrast. High resolution CT imaging was performed of the lungs. Multiplanar reformatted images are provided for review. Dose modulation, iterative reconstruction, and/or weight based adjustment of the mA/kV was utilized to reduce the radiation dose to as low as reasonably achievable. High resolution CT images were performed in the supine inspiration, supine expiration, and prone inspiration positions. COMPARISON: None. HISTORY: ORDERING SYSTEM PROVIDED HISTORY: Pulmonary fibrosis (HCC) TECHNOLOGIST PROVIDED HISTORY: pulmonary fibrosis, unspecified FINDINGS: Mediastinum: The main pulmonary artery is enlarged measuring up to 38 mm. Calcified atheromatous plaque and coronary calcifications are noted. No pericardial effusion. No enlarged or suspicious-appearing lymph nodes are identified. HRCT Findings/Lungs/pleura : Mild honeycombing in the lung bases with adjacent subpleural reticulation and mild associated bronchiectasis. Subpleural reticular opacities are present to a lesser degree in the upper lung zones. No significant emphysematous changes. No significant air trapping. No nodule. No acute airspace disease or effusion. The central airway is patent. Upper Abdomen: Small hiatal hernia. Benign-appearing subcentimeter hypoattenuating liver lesions, favoring cysts. Soft Tissues/Bones: No significant findings. [facility] Obinna Travis MD - 11/27/2021 EXAMINATION: CT IMAGES OF THE CHEST WITHOUT CONTRAST, HIGH RESOLUTION 11/27/2021 TECHNIQUE: CT of the chest was performed without the administration of intravenous contrast. High resolution CT imaging was performed of the lungs. Multiplanar reformatted images are provided for review. Dose modulation, iterative reconstruction, and/or weight based adjustment of the mA/kV was utilized to reduce the radiation dose to as low as reasonably achievable. High resolution CT images were performed in the supine inspiration, supine expiration, and prone inspiration positions. COMPARISON: None. HISTORY: ORDERING SYSTEM PROVIDED HISTORY: Pulmonary fibrosis (HCC) TECHNOLOGIST PROVIDED HISTORY: pulmonary fibrosis, unspecified FINDINGS: Mediastinum: The main pulmonary artery is enlarged measuring up to 38 mm. Calcified atheromatous plaque and coronary calcifications are noted. No pericardial effusion. No enlarged or suspicious-appearing lymph nodes are identified. HRCT Findings/Lungs/pleura : Mild honeycombing in the lung bases with adjacent subpleural reticulation and mild associated bronchiectasis. Subpleural reticular opacities are present to a lesser degree in the upper lung zones. No significant emphysematous changes. No significant air trapping. No nodule. No acute airspace disease or effusion. The central airway is patent. Upper Abdomen: Small hiatal hernia. Benign-appearing subcentimeter hypoattenuating liver lesions, favoring cysts. Soft Tissues/Bones: No significant findings. IMPRESSION: 1. Mild basilar honeycombing and mild associated bronchiectasis, consistent with UIP pattern. 2. Main pulmonary artery enlargement raise the possibility of pulmonary hypertension. 3. Calcified atheromatous plaque and coronary calcification. [facility] [email or web address] Work Phone: CT CHEST HIGH RESOLUTIONOrde red By: Obinna Travis on 11-27-2021 [facility] [email or web address] Work Phone: No Panel Informationon 11-27 [facility] Urinalysis with Microscopico n 11-27-2021 - [facility] Bacteria, UA 2+ Abnormal None [facility] Bilirubin Urine Negative NEGATIVE [facility], UA Yellow Yellow [facility] Epithelial Cells UA 0 TO 2 [facility] Glucose, Ur Negative NEGATIVE [facility] Interpretation and review of laboratory results Abnormal [facility] Ketones Ql (U) Negative NEGATIVE [facility] Leukocyte esterase Test strip Ql (U) SMALL Abnormal NEGATIVE [facility] Nitrite, Urine Negative NEGATIVE [facility] pH, UA 5.5 [facility] Protein, UA Negative NEGATIVE [facility] RBC, UA None [facility] Specific [place], UA 1.020 [facility] Turbidity UA Clear Clear [facility] Urine Hgb Negative NEGATIVE [facility] Urobilinogen, Urine Normal Normal [facility] WBC, UA 5 TO 10 [facility] CBC with Auto Differentialon 10-03-2021 Absolute Eos # 0.39 [facility] th Absolute Immature Granulocyte 0.04 [facility] Absolute Lymph # 2.70 [facility] alth Absolute Tripp # 0.91 [facility] Basophils (Bld) [#/Vol] 0.08 10*3/uL [facility] Basophils/100 WBC (Bld) 1 % 0 - 2 % [facility] Eosinophils/100 WBC (Bld) 4 % 1 - 4 % [facility] Hematocrit (Bld) [Volume fraction] 35.9 % Low 36.3 - 47.1 % [facility] Hemoglobin.gastrointest inal spec 1 Ql (Stl) 11.4 g/dL Low 11.9 - 15.1 g/dL [facility] Immature granulocytes/100 WBC (Bld) 0 % 0 [facility] Interpretation and review of laboratory results Abnormal [facility] Lymphocytes/100 WBC (Bld) 27 % 24 - 43 % [facility] MCH (RBC) [Entitic mass] 28.2 pg 25.2 - 33.5 pg [facility] MCHC (RBC) [Mass/Vol] 31.8 g/dL 28.4 - 34.8 g/dL [facility] MCV (RBC) [Entitic vol] 88.9 fL 82.6 - 102.9 fL [facility] Monocytes/100 WBC (Bld) 9 % 3 - 12 % [facility] NRBC Automated 0.0 0.0 per 100 WBC [facility] Platelet distribution width (Bld) [Ratio] 14.7 % High 11.8 - 14.4 % [facility] Platelet mean volume (Bld) [Entitic vol] 10.5 fL 8.1 - 13.5 fL [facility] Platelets (Bld) [#/Vol] 327 10*3/uL [facility] RBC (Bld) [#/Vol] 4.04 10*6/uL 3.95 - 5.1 1 m/uL [facility] Segmented neutrophils/100 WBC (Bld) 59 % 36 - 65 % [facility] Segs Absolute 6.03 [facility] h WBC (Bld) [#/Vol] 10.2 10*3/uL [facility] Creatinineon 10-03-2021 Creatinine [Mass/Vol] 1.24 mg/dL High 0.50 - 0.90 mg/dL [facility] GFR 54 mL/min Low >60 [facility] GFR Non- 45 mL/min Low >60 [facility] Interpretation and review of laboratory results Abnormal [facility] Hepatic Function Panelon Albumin [Mass/Vol] 4.2 g/dL 3.5 - 5.2 g/dL [facility] Albumin/Globulin [Mass ratio] 1.4 {ratio} [facility] ALP (Bld) [Catalytic activity/Vol] 113 U/L High 35 - 104 U/L [facility] ALT [Catalytic activity/Vol] 11 U/L 5 - 33 U/L [facility] AST [Catalytic activity/Vol] 22 U/L <32 [facility] Bilirubin [Mass/Vol] mg/dL Low 0.3 - 1 .2 mg/dL [facility] Bilirubin, Indirect Can not be calculated 0.00 - 1.00 mg/dL [facility] Bilirubin.indirect [Mass/Vol] mg/dL <0.31 mg/dL [facility] Free PSA/Total PSA [Mass fraction] 7.1 g/dL 6.4 - 8.3 g/dL [facility] Interpretation and review of laboratory results Abnormal [facility] Laboratory - Chemistry and C hemistry - challengeon 10-03-2021 GFR/1.73 sq M.predicted MDRD (S/P/Bld) [Vol rate/Area] [facility] Comment on above: Average GFR for 50-5 9 years old: 93 mL/min/1.73sq m Chronic Kidney Disease: <60 mL/min/1.73sq m Kidney failure: <15 mL/min/1.73sq m eGFR calculated using average adult body mass. Additional eGFR calculator available at: http://www.Presentigo.IndiPharm/multiple_crcl_2012.htm Stage 1: Some kidney damage normal GFR Stage 2: Mild kidney damage GFR 60-89 Stage 3: Moderate kidney damage GFR 30-59 Stage 4: Severe kidney damage GFR 15-29 Stage 5: Severe kidney damage GFR <15 ESRD - chronic treatment by dialysis or transplant Sedimentation Rateon 022 Sed Rate 18 mm 0 - 30 mm [facility] CBC Auto DifferentialOrdered By: Vinicius Bullock on 05-30-2021 Absolute Eos # 0.17 [facility] Work Phone: Absolute Immature Granulocyte 0.05 [employer] Work Phone: Absolute Lymph # 2.36 Placed [facility] Work Phone: Absolute Tripp # 0.75 Placed [facility] Work Phone: Basophils (Bld) [#/Vol] 0.06 10*3/uL [employer] Work Phone: Basophils/100 WBC (Bld) 1 % 0 - 2 % M [employer] Work Phone: Differential Type NOT REPORTED [facility] Phone: Eosinophils/100 WBC (Bld) 2 % 1 - 4 % [facility] Phone: Hematocrit (Bld) [Volume fraction] 37.1 % 36.3 - 47.1 % [facility] Phone: Hemoglobin.gastrointest inal spec 1 Ql (Stl) 12.0 g/dL 11.9 - 15.1 g/dL [facility] Phone: Immature granulocytes/100 WBC (Bld) 1 % High 0 [facility] Phone: Interpretation and review of laboratory results Abnormal [facility] Phone: Lymphocytes/100 WBC (Bld) 22 % Low 24 - 43 % [facility] Phone: MCH (RBC) [Entitic mass] 27.8 pg 25.2 - 33.5 pg [facility] Phone: MCHC (RBC) [Mass/Vol] 32.3 g/dL 28.4 - 34.8 g/dL [facility] Phone: MCV (RBC) [Entitic vol] 86.1 fL 82.6 - 102.9 fL [facility] Phone: Monocytes/100 WBC (Bld) 7 % 3 - 12 % M [employer] Phone: NRBC Automated 0.0 0.0 per 100 WBC [facility] Phone: Platelet distribution width (Bld) [Ratio] 13.9 % 11.8 - 14.4 % [facility] Phone: Platelet Estimate NOT REPORTED [facility] Phone: Platelet mean volume (Bld) [Entitic vol] 10.3 fL 8.1 - 13.5 fL [facility] Phone: Platelets (Bld) [#/Vol] 316 10*3/uL [facility] Phone: RBC (Bld) [#/Vol] 4.31 10*6/uL 3.95 - 5.1 1 m/uL [facility] Phone: RBC (Bld) [#/Vol] NOT REPORTED [facility] Phone: Segmented neutrophils/100 WBC (Bld) 67 % High 36 - 65 % [facility] Phone: Segs Absolute 7.58 [facility] Work Phone: WBC (Bld) [#/Vol] 11.0 10*3/uL [facility] Phone: WBC (Bld) [#/Vol] NOT REPORTED [facility] Phone: [facility] Phone: Creatinine, SerumOrdered By: Vinicius Bullock on 05-30-2021 Creatinine [Mass/Vol] 1.22 mg/dL High 0.50 - 0.90 mg/dL [facility] Phone: GFR 55 mL/min Low >60 [facility] Phone: GFR Non- 45 mL/min Low >60 [facility] Phone: Interpretation and review of laboratory results Abnormal [employer] Phone: [facility] Phone: Hepatic Function PanelOrdere d By: Vinicius Bullock on 05-30-2021 Albumin [Mass/Vol] 4.4 g/dL 3.5 - 5.2 g/dL [facility] Phone: Albumin/Globulin [Mass ratio] 1.4 {ratio} [facility] Phone: ALP (Bld) [Catalytic activity/Vol] 98 U/L 35 - 104 U/L [facility] Phone: ALT [Catalytic activity/Vol] 15 U/L 5 - 33 U/L [facility] Phone: AST [Catalytic activity/Vol] 24 U/L <32 [facility] Phone: Bilirubin [Mass/Vol] mg/dL Low 0.3 - 1 .2 mg/dL [facility] Phone: Bilirubin, Indirect CANNOT BE CALCULATED 0.00 - 1.00 mg/dL [facility] Phone: Bilirubin.indirect [Mass/Vol] mg/dL <0.31 mg/dL [facility] Phone: Free PSA/Total PSA [Mass fraction] 7.5 g/dL 6.4 - 8.3 g/dL [facility] Phone: Globulin NOT REPORTED 1.5 - 3.8 g/dL [facility] Phone: Interpretation and review of laboratory results Abnormal [facility] Phone: [facility] Phone: Laboratory - Chemistry and C hemistry - challengeOrdered By: Vinicius Bullock on 05-30-2021 GFR/1.73 sq M.predicted MDRD (S/P/Bld) [Vol rate/Area] [facility] Phone: Comment on above: Average GFR for 50-5 9 years old: 93 mL/min/1.73sq m Chronic Kidney Disease: <60 mL/min/1.73sq m Kidney failure: <15 mL/min/1.73sq m eGFR calculated using average adult body mass. Additional eGFR calculator available at: http://www.CitySpark/multiple_crcl_2012.htm Stage 1: Some kidney damage normal GFR Stage 2: Mild kidney damage GFR 60-89 Stage 3: Moderate kidney damage GFR 30-59 Stage 4: Severe kidney damage GFR 15-29 Stage 5: Severe kidney damage GFR <15 ESRD - chronic treatment by dialysis or transplant Sedimentation RateOrdered By : Vinicius Bullock on 05-30-2021 Interpretation and review of laboratory results Abnormal [employer] Phone: Sed Rate 25 mm High 0 - 20 mm [facility] Phone: [employer] Work Phone: CBC Auto DifferentialOrdered By: Vinicius Bullock on 04-04-2021 Absolute Eos # 0.09 Placed [facility] Work Phone: Absolute Immature Granulocyte 0.04 [employer] Work Phone: Absolute Lymph # 2.65 [facility] Work Phone: Absolute Tripp # 0.80 Placed [facility] Work Phone: Basophils (Bld) [#/Vol] 0.08 10*3/uL [employer] Work Phone: Basophils/100 WBC (Bld) 1 % 0 - 2 % [facility] Work Phone: Differential Type NOT REPORTED [employer] Phone: Eosinophils/100 WBC (Bld) 1 % 1 - 4 % [facility] Work Phone: Hematocrit (Bld) [Volume fraction] 40.0 % 36.3 - 47.1 % [employer] Phone: Hemoglobin.gastrointest inal spec 1 Ql (Stl) 12.9 g/dL 11.9 - 15.1 g/dL [employer] Phone: Immature granulocytes/100 WBC (Bld) 0 % 0 [facility] Phone: Lymphocytes/100 WBC (Bld) 25 % 24 - 43 % [facility] Phone: MCH (RBC) [Entitic mass] 27.4 pg 25.2 - 33.5 pg [facility] Phone: MCHC (RBC) [Mass/Vol] 32.3 g/dL 28.4 - 34.8 g/dL [facility] Phone: MCV (RBC) [Entitic vol] 84.9 fL 82.6 - 102.9 fL [facility] Phone: Monocytes/100 WBC (Bld) 8 % 3 - 12 % M [employer] Phone: NRBC Automated 0.0 0.0 per 100 WBC [facility] Phone: Platelet distribution width (Bld) [Ratio] 14.2 % 11.8 - 14.4 % [facility] Phone: Platelet Estimate NOT REPORTED [facility] Phone: Platelet mean volume (Bld) [Entitic vol] 10.1 fL 8.1 - 13.5 fL [employer] Phone: Platelets (Bld) [#/Vol] 314 10*3/uL [employer] Phone: RBC (Bld) [#/Vol] 4.71 10*6/uL 3.95 - 5.1 1 m/uL [facility] Phone: RBC (Bld) [#/Vol] NOT REPORTED [facility] Phone: Segmented neutrophils/100 WBC (Bld) 65 % 36 - 65 % [facility] Phone: Segs Absolute 6.90 [facility] Work Phone: WBC (Bld) [#/Vol] 10.6 10*3/uL [facility] Phone: WBC (Bld) [#/Vol] NOT REPORTED [facility] Phone: [facility] Phone: Creatinine, SerumOrdered By: Vinicius Bullock on 04-04-2021 Creatinine [Mass/Vol] 1.47 mg/dL High 0.50 - 0.90 mg/dL [facility] Phone: GFR 45 mL/min Low >60 [facility] Phone: GFR Non- 37 mL/min Low >60 [facility] Phone: Interpretation and review of laboratory results Abnormal [employer] Phone: [facility] Phone: Hepatic Function PanelOrdere d By: Vinicius Bullock on 04-04-2021 Albumin [Mass/Vol] 4.2 g/dL 3.5 - 5.2 g/dL [facility] Phone: Albumin/Globulin [Mass ratio] 1.4 {ratio} [facility] Phone: ALP (Bld) [Catalytic activity/Vol] 95 U/L 35 - 104 U/L [facility] Phone: ALT [Catalytic activity/Vol] 14 U/L 5 - 33 U/L [facility] Phone: AST [Catalytic activity/Vol] 24 U/L <32 [facility] Phone: Bilirubin [Mass/Vol] mg/dL Low 0.3 - 1 .2 mg/dL [facility] Phone: Bilirubin, Indirect CANNOT BE CALCULATED 0.00 - 1.00 mg/dL [facility] Phone: Bilirubin.indirect [Mass/Vol] mg/dL <0.31 mg/dL [facility] Phone: Free PSA/Total PSA [Mass fraction] 7.2 g/dL 6.4 - 8.3 g/dL [facility] Phone: Globulin NOT REPORTED 1.5 - 3.8 g/dL [facility] Phone: Interpretation and review of laboratory results Abnormal [employer] Phone: [employer] Phone: Laboratory - Chemistry and C hemistry - challengeOrdered By: Vinicius Bullock on 04-04-2021 GFR/1.73 sq M.predicted MDRD (S/P/Bld) [Vol rate/Area] [facility] Phone: Comment on above: Average GFR for 50-5 9 years old: 93 mL/min/1.73sq m Chronic Kidney Disease: <60 mL/min/1.73sq m Kidney failure: <15 mL/min/1.73sq m eGFR calculated using average adult body mass. Additional eGFR calculator available at: http://www.CitySpark/multiple_crcl_2012.htm Stage 1: Some kidney damage normal GFR Stage 2: Mild kidney damage GFR 60-89 Stage 3: Moderate kidney damage GFR 30-59 Stage 4: Severe kidney damage GFR 15-29 Stage 5: Severe kidney damage GFR <15 ESRD - chronic treatment by dialysis or transplant Sedimentation RateOrdered By : Vinicius Bullock on 04-04-2021 Sed Rate 13 mm 0 - 20 mm [facility] Phone: [facility] Phone: XR ABDOMEN (KUB) (SINGLE AP VIEW)Ordered By: Frank Pacheco on 02-21-2021 Unremarkable abdominal radiographs without acute abnormality. [facility] Phone: EXAMINATION: ONE SUPINE XRAY VIEW(S) OF THE ABDOMEN 02/21/2021 7:33 am COMPARISON: Abdominal radiographs performed 11/10/2019. HISTORY: ORDERING SYSTEM PROVIDED HISTORY: Urinary urgency FINDINGS: There is a nonobstructive bowel gas pattern. There is no intraperitoneal free air. There are no suspicious calcifications. Stable phleboliths are seen in the pelvis. There is no acute osseous abnormality. The surrounding soft tissues are unremarkable. [facility] Phone: Hector, Mhpn Incoming Radiant Results From [employer] - 02/21/2021 8:40 AM EDT EXAMINATION: ONE SUPINE XRAY VIEW(S) OF THE ABDOMEN 02/21/2021 7:33 am COMPARISON: Abdominal radiographs performed 11/10/2019. HISTORY: ORDERING SYSTEM PROVIDED HISTORY: Urinary urgency FINDINGS: There is a nonobstructive bowel gas pattern. There is no intraperitoneal free air. There are no suspicious calcifications. Stable phleboliths are seen in the pelvis. There is no acute osseous abnormality. The surrounding soft tissues are unremarkable. IMPRESSION: Unremarkable abdominal radiographs without acute abnormality. [facility] Phone: [facility] Phone: CBC Auto DifferentialOrdered By: Vinicius Bullock on 02-07-2021 Absolute Eos # 0.41 Placed [facility] Work Phone: Absolute Immature Granulocyte 0.05 [employer] Work Phone: Absolute Lymph # 2.39 [employer] [facility] Work Phone: Absolute Tripp # 0.91 [facility] [facility] Work Phone: Basophils (Bld) [#/Vol] 0.08 10*3/uL [facility] Phone: Basophils/100 WBC (Bld) 1 % 0 - 2 % M [employer] Phone: Differential Type NOT REPORTED [facility] Phone: Eosinophils/100 WBC (Bld) 4 % 1 - 4 % [facility] Phone: Hematocrit (Bld) [Volume fraction] 36.4 % 36.3 - 47.1 % [employer] Phone: Hemoglobin.gastrointest inal spec 1 Ql (Stl) 11.2 g/dL Low 11.9 - 15.1 g/dL [facility] Phone: Immature granulocytes/100 WBC (Bld) 1 % High 0 [facility] Phone: Interpretation and review of laboratory results Abnormal [facility] Phone: Lymphocytes/100 WBC (Bld) 26 % 24 - 43 % [facility] Phone: MCH (RBC) [Entitic mass] 27.0 pg 25.2 - 33.5 pg [facility] Phone: MCHC (RBC) [Mass/Vol] 30.8 g/dL 28.4 - 34.8 g/dL [facility] Phone: MCV (RBC) [Entitic vol] 87.7 fL 82.6 - 102.9 fL [facility] Phone: Monocytes/100 WBC (Bld) 10 % 3 - 12 % M [employer] Phone: NRBC Automated 0.0 0.0 per 100 WBC [facility] Phone: Platelet distribution width (Bld) [Ratio] 14.5 % High 11.8 - 14.4 % [employer] Phone: Platelet Estimate NOT REPORTED [facility] Phone: Platelet mean volume (Bld) [Entitic vol] 10.0 fL 8.1 - 13.5 fL [employer] Phone: Platelets (Bld) [#/Vol] 390 10*3/uL [employer] Phone: RBC (Bld) [#/Vol] 4.15 10*6/uL 3.95 - 5.1 1 m/uL [employer] Phone: RBC (Bld) [#/Vol] NOT REPORTED [facility] Phone: Segmented neutrophils/100 WBC (Bld) 58 % 36 - 65 % [facility] Phone: Segs Absolute 5.47 [facility] Work Phone: WBC (Bld) [#/Vol] 9.3 10*3/uL [facility] Phone: WBC (Bld) [#/Vol] NOT REPORTED [facility] Phone: [facility] Phone: Creatinine, SerumOrdered By: Vinicius Bullock on 02-07-2021 Creatinine [Mass/Vol] 1.25 mg/dL High 0.50 - 0.90 mg/dL [facility] Phone: GFR 54 mL/min Low >60 [facility] Phone: GFR Non- 44 mL/min Low >60 [facility] Phone: Interpretation and review of laboratory results Abnormal [employer] Phone: [employer] Phone: Hepatic Function PanelOrdere d By: Vinicius Bullock on 02-07-2021 Albumin [Mass/Vol] 4 g/dL 3.5 - 5.2 g/dL [employer] Phone: Albumin/Globulin [Mass ratio] 1.1 {ratio} [employer] Phone: ALP (Bld) [Catalytic activity/Vol] 95 U/L 35 - 104 U/L [facility] Phone: ALT [Catalytic activity/Vol] 13 U/L 5 - 33 U/L [facility] Phone: AST [Catalytic activity/Vol] 22 U/L <32 [facility] Phone: Bilirubin [Mass/Vol] mg/dL Low 0.3 - 1 .2 mg/dL [facility] Phone: Bilirubin, Indirect CANNOT BE CALCULATED 0.00 - 1.00 mg/dL [facility] Phone: Bilirubin.indirect [Mass/Vol] mg/dL <0.31 mg/dL [facility] Phone: Free PSA/Total PSA [Mass fraction] 7.5 g/dL 6.4 - 8.3 g/dL [facility] Phone: Globulin NOT REPORTED 1.5 - 3.8 g/dL [facility] Phone: Interpretation and review of laboratory results Abnormal [facility] Phone: [facility] Phone: Laboratory - Chemistry and C hemistry - challengeOrdered By: Vinicius Bullock on 02-07-2021 GFR/1.73 sq M.predicted MDRD (S/P/Bld) [Vol rate/Area] [facility] Phone: Comment on above: Average GFR for 50-5 9 years old: 93 mL/min/1.73sq m Chronic Kidney Disease: <60 mL/min/1.73sq m Kidney failure: <15 mL/min/1.73sq m eGFR calculated using average adult body mass. Additional eGFR calculator available at: http://www.Presentigo.IndiPharm/multiple_crcl_2012.htm Stage 1: Some kidney damage normal GFR Stage 2: Mild kidney damage GFR 60-89 Stage 3: Moderate kidney damage GFR 30-59 Stage 4: Severe kidney damage GFR 15-29 Stage 5: Severe kidney damage GFR <15 ESRD - chronic treatment by dialysis or transplant Sedimentation RateOrdered By : Vinicius Bullock on 02-07-2021 Interpretation and review of laboratory results Abnormal [facility] Phone: Sed Rate 62 mm High 0 - 20 mm [facility] Phone: [employer] Phone: CBC Auto DifferentialOrdered By: Vinicius Bullock on 12-13-2020 Absolute Eos # 0.30 Placed [facility] Work Phone: Absolute Immature Granulocyte 0.08 [employer] Work Phone: Absolute Lymph # 2.93 [facility] Work Phone: Absolute Tripp # 1.04 [facility] Work Phone: Basophils (Bld) [#/Vol] 0.08 10*3/uL [facility] Work Phone: Basophils/100 WBC (Bld) 1 % 0 - 2 % [facility] [email or web address] Work Phone: Differential Type NOT REPORTED [facility] Phone: Eosinophils/100 WBC (Bld) 2 % 1 - 4 % [facility] Phone: Hematocrit (Bld) [Volume fraction] 37.6 % 36.3 - 47.1 % [facility] Phone: Hemoglobin.gastrointest inal spec 1 Ql (Stl) 12.0 g/dL 11.9 - 15.1 g/dL [employer] Phone: Immature granulocytes/100 WBC (Bld) 1 % High 0 [facility] Phone: Interpretation and review of laboratory results Abnormal [facility] Phone: Lymphocytes/100 WBC (Bld) 21 % Low 24 - 43 % [employer] Work Phone: MCH (RBC) [Entitic mass] 27.8 pg 25.2 - 33.5 pg [facility] Phone: MCHC (RBC) [Mass/Vol] 31.9 g/dL 28.4 - 34.8 g/dL [facility] Phone: MCV (RBC) [Entitic vol] 87.0 fL 82.6 - 102.9 fL [facility] Phone: Monocytes/100 WBC (Bld) 7 % 3 - 12 % M [employer] Work Phone: NRBC Automated 0.0 0.0 per 100 WBC [facility] Phone: Platelet distribution width (Bld) [Ratio] 13.1 % 11.8 - 14.4 % [facility] Phone: Platelet Estimate NOT REPORTED [facility] Phone: Platelet mean volume (Bld) [Entitic vol] 9.7 fL 8.1 - 13.5 fL [facility] Phone: Platelets (Bld) [#/Vol] 345 10*3/uL [facility] Phone: RBC (Bld) [#/Vol] 4.32 10*6/uL 3.95 - 5.1 1 m/uL [facility] Phone: RBC (Bld) [#/Vol] NOT REPORTED [facility] Phone: Segmented neutrophils/100 WBC (Bld) 68 % High 36 - 65 % [facility] Phone: Segs Absolute 9.87 High [facility] Work Phone: WBC (Bld) [#/Vol] 14.3 10*3/uL High [facility] Phone: WBC (Bld) [#/Vol] NOT REPORTED [facility] Phone: [facility] Phone: Creatinine, SerumOrdered By: Vinicius Bullock on 12-13-2020 Creatinine [Mass/Vol] 1.48 mg/dL High 0.50 - 0.90 mg/dL [facility] Phone: GFR 44 mL/min Low >60 [facility] Phone: GFR Non- 36 mL/min Low >60 [facility] Phone: Interpretation and review of laboratory results Abnormal [facility] Phone: [facility] Phone: Hepatic Function PanelOrdere d By: Vinicius Bullock on 12-13-2020 Albumin [Mass/Vol] 4.2 g/dL 3.5 - 5.2 g/dL [facility] Phone: Albumin/Globulin [Mass ratio] 1.1 {ratio} [facility] Phone: ALP (Bld) [Catalytic activity/Vol] 86 U/L 35 - 104 U/L [facility] Phone: ALT [Catalytic activity/Vol] 12 U/L 5 - 33 U/L [facility] Phone: AST [Catalytic activity/Vol] 21 U/L <32 [facility] Phone: Bilirubin [Mass/Vol] mg/dL Low 0.3 - 1 .2 mg/dL [facility] Phone: Bilirubin, Indirect CANNOT BE CALCULATED 0.00 - 1.00 mg/dL [facility] Phone: Bilirubin.indirect [Mass/Vol] mg/dL <0.31 mg/dL [facility] Phone: Free PSA/Total PSA [Mass fraction] 7.9 g/dL 6.4 - 8.3 g/dL [facility] Phone: Globulin NOT REPORTED 1.5 - 3.8 g/dL [facility] Phone: Interpretation and review of laboratory results Abnormal [facility] Phone: [facility] Phone: Laboratory - Chemistry and C hemistry - challengeOrdered By: Vinicius Bullock on 12-13-2020 GFR/1.73 sq M.predicted MDRD (S/P/Bld) [Vol rate/Area] [facility] Phone: Comment on above: Average GFR for 50-5 9 years old: 93 mL/min/1.73sq m Chronic Kidney Disease: <60 mL/min/1.73sq m Kidney failure: <15 mL/min/1.73sq m eGFR calculated using average adult body mass. Additional eGFR calculator available at: http://www.[employer]Spark/multiple_crcl_2012.htm Stage 1: Some kidney damage normal GFR Stage 2: Mild kidney damage GFR 60-89 Stage 3: Moderate kidney damage GFR 30-59 Stage 4: Severe kidney damage GFR 15-29 Stage 5: Severe kidney damage GFR <15 ESRD - chronic treatment by dialysis or transplant Sedimentation RateOrdered By : Vinicius Bullock on 12-13-2020 Interpretation and review of laboratory results Abnormal [facility] Phone: Sed Rate 54 mm High 0 - 20 mm [facility] Phone: [facility] Phone: CBC Auto Differentialon 09-26 Basophils (Bld) [#/Vol] 0.06 10*3/uL [facility] Phone: Basophils/100 WBC (Bld) 1 % 0 - 2 % M [employer] Phone: Differential Type NOT REPORTED [facility] Phone: Eosinophils (Bld) [#/Vol] 0.33 10*3/uL [facility] Phone: Eosinophils/100 WBC (Bld) 4 % 1 - 4 % [facility] Phone: Erythrocyte distribution width (RBC) [Ratio] 13.3 % 11.8 - 14.4 % [facility] Phone: Hematocrit (Bld) [Volume fraction] 39.0 % 36.3 - 47.1 % [facility] Phone: Hemoglobin (Bld) [Mass/Vol] 12.3 g/dL 11.9 - 15.1 g/dL [facility] Phone: Immature granulocytes (Bld) [#/Vol] 0 % 0 [facility] Phone: Immature granulocytes (Bld) [#/Vol] 0.04 10*3/uL [facility] Phone: Lymphocytes (Bld) [#/Vol] 2.45 10*3/uL [facility] Phone: Lymphocytes/100 WBC (Bld) 27 % 24 - 43 % [facility] Phone: MCH (RBC) [Entitic mass] 27.8 pg 25.2 - 33.5 pg [facility] Phone: MCHC (RBC) [Mass/Vol] 31.5 g/dL 28.4 - 34.8 g/dL [facility] Phone: MCV (RBC) [Entitic vol] 88.2 fL 82.6 - 102.9 fL [facility] Phone: Monocytes (Bld) [#/Vol] 0.79 10*3/uL [facility] Phone: Monocytes/100 WBC (Bld) 9 % 3 - 12 % M [employer] Phone: Platelet mean volume (Bld) [Entitic vol] 10.4 fL 8.1 - 13.5 fL [facility] Phone: Platelets (Bld) [#/Vol] 284 10*3/uL [facility] Phone: Platelets (Bld) [#/Vol] NOT REPORTED [facility] Phone: RBC (Bld) [#/Vol] 4.42 10*6/uL 3.95 - 5.1 1 m/uL [facility] Phone: RBC morphology finding Nom (Bld) NOT REPORTED [facility] Phone: Segmented neutrophils/100 WBC (Bld) 59 % 36 - 65 % [facility] Phone: Segs Absolute 5.38 [facility] Work Phone: WBC (Bld) [#/Vol] 9.1 10*3/uL [facility] Phone: WBC (Bld) [#/Vol] 0.0 10*3/uL 0.0 per 10 0 WBC [facility] Phone: WBC Morphology NOT REPORTED [employer] Work Phone: Creatinine, Serumon 10-14-19 Creatinine [Mass/Vol] 1.45 mg/dL High 0.50 - 0.90 mg/dL [facility] Phone: GFR 45 mL/min Low >60 [facility] Phone: GFR Non- 37 mL/min Low >60 [facility] Phone: Interpretation and review of laboratory results Abnormal [facility] Phone: Hepatic Function Panelon Albumin [Mass/Vol] 4.5 g/dL 3.5 - 5.2 g/dL [facility] Phone: Albumin/Globulin [Mass ratio] 1.3 {ratio} [facility] Phone: ALP [Catalytic activity/Vol] 93 U/L 35 - 104 U/L [facility] Phone: ALT [Catalytic activity/Vol] 12 U/L 5 - 33 U/L [facility] Phone: AST [Catalytic activity/Vol] 21 U/L <32 [facility] Phone: Bilirubin Ql (U) <0.10 Low 0.3 - 1.2 mg/dL [facility] Phone: Bilirubin, Indirect CANNOT BE CALCULATED 0.00 - 1.00 mg/dL [facility] Phone: Bilirubin.direct [Mass/Vol] mg/dL <0.31 mg/dL [facility] Phone: Globulin (S) [Mass/Vol] NOT REPORTED 1.5 - 3.8 g/dL [facility] Phone: Interpretation and review of laboratory results Abnormal [facility] Phone: Protein [Mass/Vol] 7.9 g/dL 6.4 - 8.3 g/dL [facility] Phone: Metabolic Panelon 10-13-2020 GFR/1.73 sq M predicted among non-blacks MDRD (S/P/Bld) [Vol rate/Area] [facility] Phone: Comment on above: Stage 1: Some kidney damage normal GFR Stage 2: Mild kidney damage GFR 60-89 Stage 3: Moderate kidney damage GFR 30-59 Stage 4: Severe kidney damage GFR 15-29 Stage 5: Severe kidney damage GFR <15 ESRD - chronic treatment by dialysis or transplant Average GFR for 50-5 9 years old: 93 mL/min/1.73sq m Chronic Kidney Disease: <60 mL/min/1.73sq m Kidney failure: <15 mL/min/1.73sq m eGFR calculated using average adult body mass. Additional eGFR calculator available at: http://www.[employer]Spark/multiple_crcl_2012.htm Sedimentation Rateon 021 Interpretation and review of laboratory results Abnormal [facility] Phone: Sed Rate 25 mm High 0 - 20 mm [facility] Phone: XR ABDOMEN (KUB) (SINGLE AP VIEW)on 11-10-2019 No definite renal stones are seen. There is a 2-3 mm calcification in the pelvis on the left felt more likely to reflect a phlebolith although a distal left ureteral stone is not entirely excluded. Consider CT as clinically indicated. [employer] [place], [place] EXAMINATION: ONE SUPINE XRAY VIEW(S) OF THE ABDOMEN 11/10/2019 7:44 am COMPARISON: None. HISTORY: ORDERING SYSTEM PROVIDED HISTORY: Kidney stone FINDINGS: Bowel contents obscure both kidneys. No definite stones are seen overlying either kidney. 2-3 mm rounded calcification in the pelvis on the left felt more likely to reflect a phlebolith although a distal left ureteral stone is not entirely excluded. No definite additional stones are seen overlying the expected course of either ureter. Normal bowel gas pattern. No definite evidence for intraperitoneal free air. No acute bony abnormalities. [facility] Incoming Radiant Results From [employer] - 11/10/2019 8:02 AM EDT EXAMINATION: ONE SUPINE XRAY VIEW(S) OF THE ABDOMEN 11/10/2019 7:44 am COMPARISON: None. HISTORY: ORDERING SYSTEM PROVIDED HISTORY: Kidney stone FINDINGS: Bowel contents obscure both kidneys. No definite stones are seen overlying either kidney. 2-3 mm rounded calcification in the pelvis on the left felt more likely to reflect a phlebolith although a distal left ureteral stone is not entirely excluded. No definite additional stones are seen overlying the expected course of either ureter. Normal bowel gas pattern. No definite evidence for intraperitoneal free air. No acute bony abnormalities. IMPRESSION: No definite renal stones are seen. There is a 2-3 mm calcification in the pelvis on the left felt more likely to reflect a phlebolith although a distal left ureteral stone is not entirely excluded. Consider CT as clinically indicated. [facility] 2 [facility] 03-29 [facility] [address] [place] [address] Patient Name: SYLVIA GARAY : 1965Sex: FAge: Race: OtherMRN: [id number]. Location: OUTPPatient Status: OVisit #: [id number] Date: 04/15/2017 7:10:00 AMCompleted Date: 04/15/2017 08:31 AMRequesting Provider: OREN LOPES Attending Provider: OREN LOPES Report Copy To: Signs & Symptoms: LT THUMB IP FUSIONHistory: LT THUMB IP FUSIONComments: LT THUMB IP FUSIONExam: FINGER LEFT MIN 2 VWSAccession #: [id number] FIN SEAN LEFT MIN 2 VWS 04/15/2017 8:31 AM EDT SIGNS AND SYMPTOMS: LT THUMB IP FUSION lt thumb IP fusion fluoro time 22 secs TECHNIQUE: Intraprocedural fluoroscopy without radiologist supervision or interpretation. Electronically signed by:Mervin Rios M.D.. Transcribed by: [email or web address], User Resident: Electronically Signed by: MERVIN RIOS @ 04/15/2017 10:35 AM Normal [facility] Comment on above: Order Comment: LT TH UMB IP FUSION Operative Reporton 7 Operative Report MR#: [id number] [facility] Pt. Name: Sylvia Garay Room #: 0C Discharge Date: Birthdate: 1965 OPERATIVE REPORTDATE OF SURGERY: 04/15/2017SURGEON: Oren Lopes M.D.PREOPERATIVE DIAGNOSIS: Degenerative osteoarthritis, left thumb IP joint.POSTOPERATIVE DIAGNOSIS: Degenerative osteoarthritis, left thumb IPjoint.PROCEDURE: IP joint fusion, left thumb.SIGNAL INTELLIGENCE/ELECTRONIC WARFARE: Cain Jean M.D.ANESTHESIA: Regional with an axillary block.INDICATION FOR SURGERY: Sylvia is a 51-year-old female who [facility] with complaints of pain and worsening deformityin her left thumb. Clinically, she has about 26-20-uvxfwy ulnar deviationdeformity at the IP joint of the thumb. She has pain with motion. X-rayshowed to have advanced degenerative changes there. We felt that the onlyreasonable option for this it was going to be an IP joint fusion. She isbrought to the operating room today for that purpose. The risks andbenefits of which are explained prior to surgery with good understandingand has agreed to proceed.NARRATION: The patient was brought to the operating room and placed on thetable in the supine position. An axillary block had been administered pert Anesthesia Service in the holding area. A tourniquet was placed aroundthe proximal left arm. The left upper extremity was prepped and draped outin a sterile manner. She was given some preoperative antibiotics. Tobegin the procedure, after standard time-out, the arm was exsanguinatedwith an Esmarch bandage and the tourniquet was inflated to 250 mmHg. Usinga #15-blade, a dorsal midline incision was made. We curved it to followthe deformity in the thumb. Sharp dissection was carried out through thesubcutaneous tissue. The extensor mechanism was split in line with ourskin incision. This brought us down to the joint. There was a little bitof synovitis around the joint that was debrided with a rongeur. Once wehad that cleaned up, we opened up the joint and decorticated both proximaland distal surfaces. We took a little bit more off the ulnar side tocorrect the radial deviation deformity. Once we had the bone prepared andthe thumb was straight with good fygh-nc-qldh contact. We took a guidewirefrom the [employer] headless compression screw set. We used a mini screw. Westarted right in the center of the base of the distal phalanx, brought thewire out through the tip of the thumb. I reduced the joint and after acouple of attempts, we were able to get right down the center pretty muchwith just a few degrees of flexion at the IP joint maybe 5-10 degrees. TheK-wire was measured, but we just took a screw and held it over under C-armto make sure our length was going to be okay. I took a 34-mm screw, whichwas the longest in the set. We did not drill as the bone was fairly softas we were debriding it. By hand we just advance the screw across the IPjoint until it was completely seated in the bone distally. The fixationwas nice and stable. The guidewire was removed. Final AP and lateralx-rays were obtained. I was happy with the fixation and the position ofthe thumb clinically. It was going to come up and oppose the tips of theindex and long very nicely. The wound was irrigated with normal salinesolution. The extensor mechanism was reapproximated with a couple bomhzcli-ec-vxbnc sutures of 4-0 Vicryl. The skin with a buried 4-0 Vicryland then 5-0 Novafil. Sterile dressing of Xeroform gauze, 4x4, fluffs,Araceli, and an William bandage were applied. The tourniquet was released. Allsponge and needle counts were correct at time of closure.Electronicall y Signed by:Oren Lopes M.D. 04/16/2017 12:36 P Jasmin Lopes M.D.Date Dict: 04/15/2017/10:23 Lovely/Oren Lopes M.D.Date Trans: 04/15/2017 10:48 A/[id number]: Josefa Martinez M.D. Life Stages [facility] [id number] Normal [facility] POC GLUCOSE LABon 04-15-2017 Glucose mass conc 100 mg/dL Normal 70-100 [facility] Comment on above: Performed By: #### [id number] ####[address] FINGER LEFT MIN 2 VWSon 01-26 FINGER LEFT MIN 2 [facility] [id number] [place] [id number] Patient Name: SYLVIA GARAY : 1965Sex: FAge: Race: OtherMRN: [id number]. Location: 84Patient Status: OVisit #: [id number] Date: 02/13/2017 9:25:00 AMCompleted Date: 02/13/2017 09:28 AMRequesting Provider: BOB BROWN Attending Provider: BOB BROWN Report Copy To: Signs & Symptoms: S63.125A Dislocation of unsp interphaln joint of left thumb, init A55Srdvqvi: AthenaComments: , , L thumb , , , Ordering Provider - BOB BROWN , Rendering Provider - BOB BROWN , Exam: FINGER LEFT MIN 2 VWSAccession #: [id number] FIN SEAN LEFT MIN 2 VWS 02/13/2017 9:28 AM EDT SIGNS AND SYMPTOMS: S63.125A Dislocation of unsp interphaln joint of left thumb, init I10 TECHNOLOGIST COMMENTS: pt states has history of RA, 3 months ago thumb started turning in position QUESTION FOR THE RADIOLOGIST: , , L thumb , , , Ordering Provider - BOB BROWN , Rendering Provider - BOB BROWN , PROTOCOL: AP,Lateral and Oblique views were obtained. COMPARISON: None FINDINGS: Soft tissues:Deformity along the distal thumb Bones:Thumb distal phalanx is dislocated radially and slightly dorsally at the IP joint. No striking erosions but some spurring. Joints:As above with focal arthritis at the thumb IP joint and mild diffuse arthritis at the wrist IMPRESSION: Chronically dislocated thumb IP joint, apparently in part a function of rheumatoid arthritis, but also with some secondary osteoarthritic change. Electronically signed by:Mervin Epstein. Transcribed by: [email or web address], User Resident: Electronically Signed by: MERVIN EPSTEIN @ 02/13/2017 10:45 AM Normal [facility] Comment on above: Order Comment: , , L thumb , , , Ordering Provider - BOB BROWN , Rendering Provider - BOB BROWN , Vital Signs Date Time Vital Sign Value Performing Clinician Facility 12-19-2021 09:30-0400 Body height 152.4 cm Candi Bernsteinyonas Other [employer] Other 12-19-2021 09:30-0400 Body mass index (BMI) [Ratio] 34.37 kg/m2 Candi Bernsteinyonas Other [employer] Other 12-19-2021 09:30-0400 Body temperature 96.9 [degF] Candi Ariel Other [facility] [employer] Other 12-19-2021 09:30-0400 Body weight 79.83 kg Candi Ariel Other [employer] Other 12-19-2021 09:30-0400 Diastolic blood pressure 72 mm[Hg] Juan Luisjami Ariel Other [employer] Other 12-19-2021 09:30-0400 Respiratory rate 20 /min Candi Bernsteinyonas Other [employer] Other 12-19-2021 09:30-0400 SaO2% (BldA) [Mass fraction] 99 % Candi Bernsteinyonas Other [employer] Other 12-19-2021 09:30-0400 Systolic blood pressure 120 mm[Hg] Candi George Other [employer] Other 10-13-2020 14:25-0400 BP Diastolic 89 mm[Hg] Zakiya Knight [facility] Work Phone: 10-13-2020 14:25-0400 BP Systolic 135 mm[Hg] Zakiya Knigth [facility] Phone: 10-13-2020 14:25-0400 Pulse (Heart Rate) 81 /min Zakiya Knight [facility] Phone: 10-13-2020 14:25-0400 Respiratory Rate 16 /min [facility] Phone: 10-13-2020 14:00-0400 Pulse Oximetry 98 % Zakiya [employer] Phone: 10-13-2020 11:13-0400 BMI (Body Mass Index) 34.76 kg/m2 Zakiya [facility] [employer] Phone: 10-13-2020 11:13-0400 Body Temperature 98.01 [degF] Zakiya Knight [facility] Phone: 10-13-2020 11:13-0400 Body weight 80.74 kg Zakiya [employer] Phone: Encounters Encounter Date Encounter Type Care Provider Facility Start: 02-07-2024 ambulatory Frank PACHECO [facility] ty:SANDOR Allen Start: 08-13-2023 End: 08-13-2023 ambulatory LINK LOUISE Not Available Start: 08-06-2023 End: 08-06-2023 ambulatory JOSEFA MARTINEZ Not Available Start: 05-14-2023 End: 05-14-2023 ambulatory JAKOB Do [facility] Start: 02-05-2023 End: 02-05-2023 ambulatory JAKOB Do [facility] Start: 02-04-2023 End: 02-05-2023 ambulatory Frank PACHECO Facility:[facility] Start: 12-12-2022 ambulatory CANDI Madrigal [place] in [facility] Start: 11-09-2022 End: 11-09-2022 ambulatory JAKOB Do [facility] Start: 11-06-2022 End: 11-07-[address] VINICIUS BULLOCK Facility:[facility] Start: 10-03-2022 End: 10-03-2022 ambulatory RADHAShaista CASASYVONNE [facility] Start: 09-21-2022 End: 09-21-2022 ambulatory JAKOB Do EDMOND [facility] Start: 09-11-2022 End: 09-12-[address] VINICIUS BULLOCK Facility:[facility] Start: 08-13-2022 End: 08-13-2022 ambulatory Josefa Martinez Facility:[facility] Start: 08-13-2022 End: 08-13-2022 ambulatory MD Josefa aMrtinez Work Phone: [facility] Work Phone: Start: 08-13-2022 End: 08-13-2022 Patient encounter procedure MD Josefa Martinez Work Phone: [facility] Work Phone: Start: 07-25-2022 End: 07-25-2022 ambulatory Josefa Martinez Facility:[facility] Start: 07-25-2022 End: 07-25-2022 ambulatory MD Josefa Martinez Work Phone: [facility] Work Phone: Start: 07-25-2022 End: 07-25-2022 Patient encounter procedure MD Josefa Martinez Work Phone: [facility]Electrodiagnostics Work Phone: Start: 06-11-2022 End: 06-12-2022 ambulatory VINICIUS BULLOCK [facility] Start: 06-11-2022 End: 06-11-2022 Subsequent hospital visit by physician Josefa Martinez MD Work Phone: [facility] Start: 05-20-2022 End: 05-20-2022 [facility] Start: 04-11-2022 End: 04-12-2022 ambulatory VINICIUS BULLOCK [facility] Start: 04-11-2022 End: 04-11-2022 Subsequent hospital visit by physician Josefa Martinez MD Work Phone: [facility] Start: 02-15-2022 End: 02-16-2022 ambulatory [facility]ULL[facility] Start: 02-15-2022 End: 02-15-2022 Subsequent hospital visit by physician Josefa Martinez MD Work Phone: [facility] Start: 02-09-2022 End: 02-10-2022 ambulatory Frank PACHECO Facility: [facility] Start: 12-19-2021 End: 12-19-2021 ambulatory Candi George Other [employer] Other Start: 12-19-2021 Office outpatient visit 15 minutes Candi George [facility] Start: 11-27-2021 End: 11-29-2021 Subsequent hospital visit [facility] physician [facility] on above: Pulmonary fibrosis ( HCC) Start: 10-03-2021 End: 10-03-2021 Subsequent hospital visit by physician Josefa Martinez MD Work Phone: [facility] Start: 05-30-2021 End: 05-30-2021 Subsequent hospital visit by physician Josefa Martinez Work Phone: [facility] Start: 04-04-2021 End: 04-04-2021 Subsequent hospital visit by physician Josefa Martinez Work Phone: [facility] Start: 02-21-2021 End: 02-23-2021 Subsequent hospital visit by physician Apple Manriquez Dr Room 2 [facility] Comment on above: Urinary urgency Start: 02-07-2021 End: 02-07-2021 Subsequent hospital visit by physician Josefa Martinez Work Phone: [facility] Start: 12-13-2020 End: 12-13-2020 Subsequent hospital visit by physician Josefa Martinez Work Phone: [facility] Start: 10-13-2020 End: 10-13-2020 Emergency department patient visit Zakiya Knight Work Phone: [facility] ED Comment on above: Fall, initial encoun ter (Primary Dx); Abrasion of scalp, initial encounter Start: 10-13-2020 End: 10-13-2020 Subsequent hospital visit by physician Josefa ANGELES Laboratory Start: 11-10-2019 End: 11-12-2019 Subsequent hospital visit by physician Apple Manriquez Dr Room 4 [facility] Comment on above: Kidney stone Start: 01-27-2018 End: 01-28-2018 Ambulatory DEFAULT PHYSICIAN Facility:[facility] Start: 04-25-2017 End: 04-26-2017 Ambulatory DEFAULT PHYSICIAN Facility:[facility] Start: 04-15-2017 End: 04-16-2017 Ambulatory OREN LOPES Facility:[facility] Start: 02-13-2017 End: 02-14-2017 Ambulatory BOB BROWN Facility:[facility] Procedures Date Procedure Procedure Detail Performing Clinician Start: 09-21-2022 Follow-up visit Follow-up JAKOB PRUITT Start: 08-13-2022 Plain chest X-ray MD Syed Martinez Work Phone: Start: 06-11-2022 Creatinine blood Vinicius Bullock MD Work Phone: Start: 06-11-2022 Hepatic function panel Vinicius Bullock MD Work Phone: Start: 04-11-2022 Creatinine blood Vinicius Bullock MD Work Phone: Start: 04-11-2022 Hepatic function panel Vinicius Bullock MD Work Phone: Start: 02-15-2022 Creatinine blood Vinicius Bullock MD Work Phone: Start: 02-15-2022 Hepatic function panel Vinicius Bullock MD Work Phone: Start: 11-27-2021 Ct thorax w/o contra st material Candi George MD Start: 11-27-2021 Complement antigen e ach component Vinicius Bullock MD Work Phone: Start: 11-27-2021 Urnls dip stick/tabl et reagent auto microscopy Vinicius Bullock MD Work Phone: Start: 10-03-2021 Creatinine blood Vinicius Bullock MD Work Phone: Start: 10-03-2021 Hepatic function panel Vinicius Bullock MD Work Phone: Start: 05-30-2021 Creatinine blood Vinicius Bullock MD Work Phone: Start: 05-30-2021 Hepatic function panel Vinicius Bullock MD Work Phone: Start: 04-04-2021 Creatinine blood Vinicius Bullock MD Work Phone: Start: 04-04-2021 Hepatic function panel Vinicius Bullock MD Work Phone: Start: 02-21-2021 Radiologic exam abdo men 1 view Frank Pacheco Work Phone: Start: 02-07-2021 Creatinine blood Vinicius Bullock MD Work Phone: Start: 02-07-2021 Hepatic function panel Vinicius Bullock MD Work Phone: Start: 12-13-2020 Creatinine blood Vinicius Bullock MD Work Phone: Start: 12-13-2020 Hepatic function panel Vinicius Bullock MD Work Phone: Start: 10-13-2020 Blood count complete auto&auto difrntl wbc Vinicius Bullock Work Phone: Start: 10-13-2020 Creatinine blood Vinicius Bullock Work Phone: Start: 10-13-2020 Hepatic function panel Vinicius Bullock Work Phone: Start: 10-13-2020 Sedimentation rate r bc automated Vinicius Bullock Work Phone: Start: 11-10-2019 Radiologic exam abdo men 1 view Frank Pacheco Work Phone: Start: 04-15-2017 ANESTH LOWER ARM SURGERY TENNILLE RODRÍGUEZ Start: 04-15-2017 FUSION OF FINGER JOINT OREN SKIE Plan of Treatment Date Care Activity Detail Author Start: 08-31-2028 DTaP/Tdap/Td vaccine (4 - Td or Tdap) DTaP/Tdap/Td vaccine (4 - Td or Tdap) [facility] Start: 08-31-2028 DTaP/Tdap/Td vaccine (4 - Td) DTaP/Tdap/Td vaccine (4 - Td) [place] Start: 10-03-2022 Creatinine measurement Creatinine [facility] Start: 05-30-2022 Creatinine measurement Creatinine mo [facility] Start: 04-04-2022 Creatinine measurement Creatinine mo [facility] [email or web address] Work Phone: Start: 03-29-2022 Influenza vaccination Flu vaccine (# 1) [facility] Start: 02-26-2022 Influenza vaccination Flu vaccine (# 1) [facility] Start: 02-07-2022 Creatinine measurement Creatinine mo [facility] [email or web address] Work Phone: Start: 12-13-2021 Creatinine measurement Creatinine mo [facility] [employer] Phone: Start: 10-13-2021 Creatinine measurement Creatinine mo [facility] [employer] Phone: Start: 10-11-2021 COVID-19 Vaccine (4 - Booster for Caden series) COVID-19 Vaccine (4 - Booster for Caden series) [facility] Start: 03-29-2021 Influenza vaccination [facility] Start: 12-22-2020 COVID-19 Vaccine (2 - Booster for Caden series) COVID-19 Vaccine (2 - Booster for Caden series) [facility] Start: 03-29-2020 Influenza vaccination [place], [place] Start: 10-06-[address] [facility] Start: 10-06-2017 Lipid screen Lipid screen [place], [place] Start: 10-23-2016 Creatinine monitoring Creatinine mon itoring [place], [place] Start: 10-23-2016 Potassium [Moles/vol ume] in Serum or Plasma Potassium [facility] Start: 10-23-2016 Potassium monitoring Potassium monit oring [facility] Start: 03-24-2016 Shingles Vaccine (2 of 3) Shingles Vaccine (2 of 3) [facility] Start: 2014 Breast cancer screen Breast cancer s creen [place], [place] Start: 2014 Colon cancer screen colonoscopy Colon cancer screen colonoscopy [place], [place] Start: 2014 Screening for malign ant neoplasm of breast Breast cancer screen [facility] Start: 2014 Screening for malign ant neoplasm of colon Colon cancer screen colonoscopy [facility] [email or web address] Work Phone: Start: 08-30-2012 Screening for malign ant neoplasm of colon [facility] [email or web address] Start: 08-31-2011 Screening for malign ant neoplasm of colon Colorectal Cancer Screen [facility] [email or web address] Start: 2009 Screening for malign ant neoplasm of colon [facility] Start: 1994 Screening for malign ant neoplasm of cervix [facility] Start: 1985 Cervical cancer screen Cervical canc er screen [place], [place] Start: 1985 Screening for malign ant neoplasm of cervix [facility] [email or web address] Start: 1982 Hepatitis C screening Hepatitis C sc [facility] Start: 1980 COVID-19 Vaccine (1) COVID-19 Vaccin e (1) [facility] [employer] Phone: Start: 1979 HIV screen HIV screen [place], [place] Start: 1979 HIV screening HIV screen [facility] Start: 1976 COVID-19 Vaccine (1) COVID-19 Vaccin e (1) [facility] [employer] Phone: Start: 1976 Depression Screen Depression Screen [facility] Start: 1964 Hepatitis C screen Hepatitis C scree n [place], [place] Start: 1964 Hepatitis C screening Hepatitis C [facility] Immunizations Immunization Date Immunization Notes Care Provider Fa [email or web address] 08-16-2021 COVID-19 Aislinn kern Other [employer] Other 10-14-2020 COVID-19 Vaccine Caden - Documentation Purposes Only Candi George Other [employer] Other Payers Date Payer Category Payer Unknown [id number] 2022 Self-pay [id number] 2019 Unknown FRONTPATH [employer]-[facility] xxxxxxxxx 2019-Present [phone] [address] [place] [address] xxxxxxxxx [id number] 2015 Unknown [id number] 1964 Unknown [id number] 1964 Unknown [id number] 1964 Unknown [id number] 1964 Unknown [id number] 1964 Unknown [id number] [id number] 1964 Unknown [id number] [id number] 1964 Unknown [id number] [id number] 1964 Unknown [id number] [id number] 1964 Unknown [id number] 1964 Unknown [id number] [id number] 1964 Unknown [id number] [id number] 1964 Unknown [id number] [id number] 1959 Unknown [id number] Unknown Unknown [id number] Unknown [id number] Social History Date Type Detail Facility Start: 01-29-2013 End: 10-13-2020 Tobacco smoking status NHIS Former smoker [employer] Start: 01-29-2013 End: 05-20-2022 Alcohol intake Current non-drinker of alcohol (finding) [facility] [email or web address] Start: 1964 Sex Assigned At Not on file [place], [place] Start: 10-13-2020 Tobacco use and exposure Never used [employer] Phone: Start: 05-10-2022 End: 05-20-2022 Exposure to SARS-CoV-2 (event) Not sure [employer] Phone: Sex Assigned At Sex Assigned At [facility] [employer] Other History of tobacco use Current smoker SALLY SANDOVAL [employer] Phone: Start: 1965 Sex Assigned At Female F [facility] Clinical Notes 12-19-2021 to 05-14-2023 Note Date & Type Note Facility 05-14-2023 Note [facility] Note Chief Complaint: [facility] HPI: Sylvia Zavala is a 58 y.o. female she is doing very well. However unfortunately she could not get her medication. She denies chest pain or chest discomfort, stable dyspnea on exertion, no syncope or palpitation. Cardiology ROS: GENERAL: Denies fever, chills, night sweats, weight loss. HEENT: Denies changes in vision, photophobia, changes in hearing, epistaxis, oral bleeding. CARDIOVASCULAR: Denies chest pain, exertional dyspnea, orthopnea/PND, lower extremity edema, palpitations, lightheadedness/dizziness. RESPIRATORY: Denies SOB, coughing, wheezing GI: Denies abdominal pain, nausea/vomiting, heartburn, melena/hematochezia. RENAL: Denies dysuria, hematuria, flank pain. MSK: Denies muscle weakness/pain, arthralgias/joint pain. NEUROLOGIC: Denies LOC, weakness, numbness, headaches. SKIN: Denies abnormal rashes or bleeding. PSYCH: Denies significant anxiety, depression, sleep disturbances. Past Medical History She has a past medical history of Allergies, GERD (gastroesophageal reflux disease), Hyperlipidemia, and Hypertension. Surgical History She has a past surgical history that includes Carpal tunnel release (Bilateral); section, classic; and Hand surgery (Left, 04/15/2017). Social History She reports that she has quit smoking. Her smoking use included cigarettes. She has never used smokeless tobacco. She reports that she does not currently use alcohol. No history on file for drug use. Family History Family History Problem Relation Name Age of Onset Hypertension Mother Hypertension Father Allergies Amoxicillin-pot clavulanate Medications (Not in a hospital admission) Last Recorded Vitals @IPVITALS@ Physical Examination: GENERAL: alert and oriented x3, well developed, in no acute distress. HEAD: atraumatic, normocephalic. EYES: GERMANIA, EOMI. NECK: trachea midline, no JVD present, no carotid bruits present. CARDIAC: S1, S2 present. RRR. No murmur, rubs, or gallops. RESPIRATORY: CTAB, no increased effort of breathing, no rales, rhonchi, or wheezing. ABDOMEN: soft, nontender, nondistended. EXTREMITIES: no lower extremity edema, peripheral pulses are 2+ bilaterally. No rash/skin discoloration present. NEURO: strength/sensation equal and symmetric in bilateral upper and lower extremities. PSYCH: appropriate mood, affect, and judgement. Assessment: 1.pulmonary hypertension NYHA FC II, PAH due schleroderma. Euvolemic on physical exam Her right heart catheterization (09-21-2022) showed elevated pulmonary vascular resistance up to 7 Wood unit. Mean pulmonary atrial pressure is 36 mmHg. Echo (02-05-2023) showed again severe pulmonary hypertension. Once again we are still challenged by insurance to provide her medication. [facility] told her that tadalafil is just for men and not for woman. We will try again again to get her back on macitentan and adcirca and push insurance to cover her as much as we can. I asked my education administrative assistant and Feli THOMPSON, to call [facility] special pharmacy and send notes medication by mail. We will try to find a way to cover her medication. 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 year old female patient being seen for pulmonary hypertension. Sylvia is a very pleasant woman. She had a stable dyspnea on exertion. No chest pain or chest discomfort, no dizziness or lightheadedness, no syncope and no palpitation. Patient Active Problem List Diagnosis Arthropathy Atrial fibrillation (CMS/HCC) Chest pain Coronary artery disease involving alatna coronary artery of alatna heart without angina pectoris Deficiency anemia Essential hypertension Hyperlipidemia Pulmonary HTN (CMS/HCC) Systemic sclerosis (CMS/HCC) Shortness of breath Family History Problem Relation Name Age of Onset Hypertension Mother Hypertension Father Social History Tobacco Use Smoking status: Former Types: Cigarettes Smokeless tobacco: Never Vaping Use Vaping Use: Never used Substance Use Topics Alcohol use: Not Currently Review of Systems Cardiovascular: Positive for dyspnea on exertion. All other systems reviewed and are negative. Objective Visit Vitals BP 110/80 Pulse 76 Ht 1.524 m (5') Wt 73.9 kg (163 lb) BMI 31.83 kg/m??? OB Status Postmenopausal Smoking Status Former BSA 1.77 m??? Physical Exam Physical Exam Constitutional: Appearance: Normal appearance. He is obese. HENT: Head: Normocephalic and atraumatic. Nose: Nose normal. Mouth: Mucous membranes are moist. Pharynx: Oropharynx is clear. Eyes: Extraocular Movements: Extraocular movements intact. Conjunctiva/sclera: Conjunctivae normal. Cardiovascular: Rate and Rhythm: Normal rate and regular rhythm. Pulses: Normal pulses. Heart sounds: Normal heart sounds. Lower extremities: No edema. Pulmonary: Effort: Pulmonary effort is normal. Breath sounds: Normal breath sounds. Abdominal: General: Abdomen is flat. Palpations: Abdomen is soft. Musculoskeletal: Cervical back: Neck supple. Skin: General: Skin is warm and dry. Neurological: Mental Status: He is alert. Allergies Allergies Allergen Reactions Amoxicillin-Pot Clavulanate Other reaction(s): Other Medications Current Outpatient Medications: ambrisentan (Letairis) 10 mg tablet, Take 1 tablet (10 mg) by mouth in the morning. Do not crush, chew, or split., Disp: 90 tablet, Rfl: 3 aspirin 81 mg EC tablet, Take 81 mg by mouth in the morning., Disp: , Rfl: carvedilol (Coreg) 6.25 mg tablet, Take 6.25 mg by mouth with breakfast and with evening meal., Disp: , Rfl: celecoxib (CeleBREX) 200 mg capsule, Take 200 mg by mouth in the morning., Disp: , Rfl: cetirizine (ZyrTEC) 10 mg tablet, Take 10 mg by mouth in the morning., Disp: , Rfl: cholecalciferol (D3-5) 5,000 Units tablet, Take 5,000 Units by mouth in the morning., Disp: , Rfl: ferrous sulfate 325 (65 Fe) MG tablet, Take 325 mg by mouth with breakfast., Disp: , Rfl: furosemide (Lasix) 20 mg tablet, Take 20 mg by mouth in the morning and at bedtime., Disp: , Rfl: hydroxychloroquine (Plaquenil) 200 mg tablet, Take 200 mg by mouth as directed by study team. Takes 1 tablet oral every other day alternating with 1 tablet twice a day every other day, Disp: , Rfl: lisinopril 10 mg tablet, Take 10 mg by mouth in the morning., Disp: , Rfl: NIFEdipine XL (Procardia XL) 60 mg 24 hr tablet, Take 60 mg by mouth in the morning., Disp: , Rfl: omeprazole (PriLOSEC) [address] capsule, Take 40 mg by mouth before breakfast., Disp: , Rfl: sulfaSALAzine (Azulfidine) 500 mg EC tablet, Take 1,000 mg by mouth in the morning and at bedtime., Disp: , Rfl: tadalafil (Cialis) 20 mg tablet, Take 1 tablet (20 mg) by mouth in the morning., Disp: 90 tablet, Rfl: 3 tolterodine LA (Detrol LA) 4 mg 24 hr capsule, Take 4 mg by mouth in the morning., Disp: , Rfl: Recent Labs Admission on 10/03/2022, Discharged on 10/03/2022 Component Date Value Auto WBC 10/03/2022 11.04 (H) RBC 10/03/2022 4.43 Hemoglobin 10/03/2022 12.4 Hematocrit 10/03/2022 36.9 MCV 10/03/2022 83.3 MCH 10/03/2022 28.0 MCHC 10/03/2022 33.6 RDW 10/03/2022 14.6 Platelets 10/03/2022 332 Sodium 10/03/2022 137 Potassium 10/03/2022 3.8 Chloride 10/03/2022 103 CO2 10/03/2022 27 BUN 10/03/2022 30 (H) Creatinine 10/03/2022 1.44 (H) Glucose 10/03/2022 101 (H) Calcium 10/03/2022 9.9 Anion Gap 10/03/2022 11 eGFR 10/03/2022 42.2 (L) BUN/Creatinine Ratio 10/03/2022 20.8 Imaging and other tests [facility] 09-21-2022: HEMODYNAMICS: AO: 117/74 mmHg RA: 7/5 (4) mmHg RV: 53/4 (7) mmHg PA: 54/19 (36) mmHg PCWP: 12/10 (8) mmHg PVR: 7 Serrano Units CO: 4.17 CI: 2.32 Assessment/Plan 1.pulmonary hypertension NYHA FC II, PAH due schleroderma. Euvolemic on physical exam Echo showed again severe pulmonary hypertension. Her right heart catheterization showed elevated pulmonary vascular resistance up to 7 Wood unit. Mean pulmonary atrial pressure is 36 mmHg. Once again we are still challenged by insurance (more content not included)... [facility] 11-22-2022 Note Emailed clinic staff the below note, as they will be following up Earlyramon Zavala 63: tadalafil authorization was denied due to missing clinical information--they require a documented 6-minute walk test, current pro-BNP or NT-proBNP level, baseline pulmonary arterial pressure at diagnosis, plan for dose escalation to 40mg, and also require that Letaris PA be submitted as the two medications are to be used together. I did sent a note to an MA in the clinic to see if anyone has worked on the Letaris, from what I see the medication is currently at [facility]. [facility] 11-22-2022 Note Supervising Physicia n & Clinic:?? Dr. Pruitt, Cardiology Sylvia Zvaala is a 57 y.o. year-old female with PMH of pulmonary hypertension. PharmD consulted for evaluation of tadalafil for treatment of PAH (ICD-10 I27.20). Prescribed Dosing: tadalafil 20mg 1 tablet PO QAM No pertinent drug interactions noted No renal or hepatic adjustments necessary Vitals 152.4cm No weight available NYHA FC II, PAH due schleroderma. Euvolemic on physical exam Echo showed again severe pulmonary hypertension. Her right heart catheterization showed elevated pulmonary vascular resistance up to 7 Wood unit. Mean pulmonary atrial pressure is 36 mmHg. Follow-up: PharmD to contact patient for introductory call and additionally when there is updated information from the insurance. Will advise patient to call back with questions or concerns.? Carola Douglass, RalphD, BCACP, CSP 11/22/22 9:34 AM [facility] [phone] 11-09-2022 Note tadalafil [facility] Subjective Sylvia Sheikh is a 57 y.o. year old female patient being seen for pulmonary hypertension. She had a stable dyspnea on exertion. No chest pain or chest discomfort, no dizziness or lightheadedness, no syncope and no palpitation. Patient Active Problem List Diagnosis Arthropathy Atrial fibrillation (CMS/HCC) Chest pain Coronary artery disease involving alatna coronary artery of alatna heart without angina pectoris Deficiency anemia Essential hypertension Hyperlipidemia Pulmonary hypertension (CMS/HCC) Systemic sclerosis (CMS/HCC) Shortness of breath Family History Problem Relation Name Age of Onset Hypertension Mother Hypertension Father Social History Tobacco Use Smoking status: Former Types: Cigarettes Smokeless tobacco: Never Vaping Use Vaping Use: Never used Substance Use Topics Alcohol use: Not Currently HPI Review of Systems Cardiovascular: Positive for dyspnea on exertion. Objective Visit Vitals OB Status Postmenopausal Smoking Status Former Physical Exam Physical Exam Constitutional: Appearance: Normal appearance. He is obese. HENT: Head: Normocephalic and atraumatic. Nose: Nose normal. Mouth: Mucous membranes are moist. Pharynx: Oropharynx is clear. Eyes: Extraocular Movements: Extraocular movements intact. Conjunctiva/sclera: Conjunctivae normal. Cardiovascular: Rate and Rhythm: Normal rate and regular rhythm. Pulses: Normal pulses. Heart sounds: Normal heart sounds. Lower extremities: No edema. Pulmonary: Effort: Pulmonary effort is normal. Breath sounds: Normal breath sounds. Abdominal: General: Abdomen is flat. Palpations: Abdomen is soft. Musculoskeletal: Cervical back: Neck supple. Skin: General: Skin is warm and dry. Neurological: Mental Status: He is alert. Allergies Allergies Allergen Reactions Amoxicillin-Pot Clavulanate Other reaction(s): Other Medications Current Outpatient Medications: aspirin 81 mg EC tablet, Take 81 mg by mouth in the morning., Disp: , Rfl: carvedilol (Coreg) 6.25 mg tablet, Take 6.25 mg by mouth with breakfast and with evening meal., Disp: , Rfl: celecoxib (CeleBREX) 200 mg capsule, Take 200 mg by mouth in the morning., Disp: , Rfl: cetirizine (ZyrTEC) 10 mg tablet, Take 10 mg by mouth in the morning., Disp: , Rfl: cholecalciferol (Vitamin D3) 5,000 Units tablet, Take 5,000 Units by mouth in the morning., Disp: , Rfl: ferrous sulfate 325 (65 Fe) MG tablet, Take 325 mg by mouth with breakfast., Disp: , Rfl: furosemide (Lasix) 20 mg tablet, Take 20 mg by mouth in the morning and at bedtime., Disp: , Rfl: hydroxychloroquine (Plaquenil) 200 mg tablet, Take 200 mg by mouth as directed by study team. Takes 1 tablet oral every other day alternating with 1 tablet twice a day every other day, Disp: , Rfl: lisinopril 10 mg tablet, Take 10 mg by mouth in the morning., Disp: , Rfl: NIFEdipine XL (Procardia XL) 60 mg 24 hr tablet, Take 60 mg by mouth in the morning., Disp: , Rfl: omeprazole (PriLOSEC) [address] capsule, Take 40 mg by mouth before breakfast., Disp: , Rfl: sulfaSALAzine (Azulfidine) 500 mg EC tablet, Take 1,000 mg by mouth in the morning and at bedtime., Disp: , Rfl: tolterodine LA (Detrol LA) 4 mg 24 hr capsule, Take 4 mg by mouth in the morning., Disp: , Rfl: Recent Labs Admission on 10/03/2022, Discharged on 10/03/2022 Component Date Value Auto WBC 10/03/2022 11.04 (A) RBC 10/03/2022 4.43 Hemoglobin 10/03/2022 12.4 Hematocrit 10/03/2022 36.9 MCV 10/03/2022 83.3 MCH 10/03/2022 28.0 MCHC 10/03/2022 33.6 RDW 10/03/2022 14.6 Platelets 10/03/2022 332 Sodium 10/03/2022 137 Potassium 10/03/2022 3.8 Chloride 10/03/2022 103 CO2 10/03/2022 27 BUN 10/03/2022 30 (A) Creatinine 10/03/2022 1.44 (A) Glucose 10/03/2022 101 (A) Calcium 10/03/2022 9.9 Anion Gap 10/03/2022 11 eGFR 10/03/2022 42.2 (A) BUN/Creatinine Ratio 10/03/2022 20.8 Imaging and other tests [facility] 09-21-2022: HEMODYNAMICS: AO: 117/74 mmHg RA: 7/5 (4) mmHg RV: 53/4 (7) mmHg PA: 54/19 (36) mmHg PCWP: 12/10 (8) mmHg PVR: 7 Serrano Units CO: 4.17 CI: 2.32 Assessment/Plan 1.pulmonary hypertension NYHA FC II, PAH due schleroderma. Euvolemic on physical exam Echo showed again severe pulmonary hypertension. Her right heart catheterization showed elevated pulmonary vascular resistance up to 7 Wood unit. Mean pulmonary atrial pressure is 36 mmHg. We are still challenged by insurance to provide her medication. We well get her back on macitentan and adcirca and push insurance to cover her as much as we can. We will try to find a way to cover her medication. 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 Use of blood products discussed with patient who consented to blood products. Plan discussed with fellow and attending. Additional Equipment Requests [facility] 09-21-2022 Note Subjective Sylvia Sheikh is a 57 y.o. year old female patient being seen for pulmonary hypertension. She is doing okay overall, her insurance did not approve her pulmonary artery hypertension medication. She denies chest pain or chest discomfort, palpitation or dizziness. Her dyspnea on exertion is stable. Patient Active Problem List Diagnosis Arthropathy Atrial fibrillation (CMS/HCC) Chest pain Coronary atherosclerosis Deficiency anemia Essential hypertension Hyperlipidemia Pulmonary hypertension (CMS/HCC) Systemic sclerosis (CMS/HCC) Family History Problem Relation Name Age of Onset Hypertension Mother Hypertension Father Review of Systems Constitutional: Negative. HENT: Negative. Eyes: Negative. Cardiovascular: Negative. Respiratory: Negative. Objective There were no vitals taken for this visit. Physical Exam Physical Exam Constitutional: Appearance: Normal appearance. He is obese. HENT: Head: Normocephalic and atraumatic. Nose: Nose normal. Mouth: Mucous membranes are moist. Pharynx: Oropharynx is clear. Eyes: Extraocular Movements: Extraocular movements intact. Conjunctiva/sclera: Conjunctivae normal. Cardiovascular: Rate and Rhythm: Normal rate and regular rhythm. Pulses: Normal pulses. Heart sounds: Normal heart sounds. Lower extremities: No edema. Pulmonary: Effort: Pulmonary effort is normal. Breath sounds: Normal breath sounds. Abdominal: General: Abdomen is flat. Palpations: Abdomen is soft. Musculoskeletal: Cervical back: Neck supple. She recently had foot surgery and has a port on her right foot Skin: General: Skin is warm and dry. Neurological: Mental Status: He is alert. Allergies Allergies Allergen Reactions Amoxicillin-Pot Clavulanate Other reaction(s): Other Medications Current Outpatient Medications: macitentan (Opsumit) 10 mg tablet, in the morning., Disp: , Rfl: tadalafil, antihypertensive, (Adcirca) 20 mg tablet, Adcirca 20 mg tablet TAKE 2 TABLETS BY MOUTH EVERY DAY, Disp: , Rfl: aspirin 81 mg EC tablet, in the morning., Disp: , Rfl: carvedilol (Coreg) 6.25 mg tablet, carvedilol 6.25 mg tablet, Disp: , Rfl: celecoxib (CeleBREX) 200 mg capsule, celecoxib 200 mg capsule, Disp: , Rfl: ferrous sulfate 325 (65 Fe) MG tablet, iron 325 mg (65 mg iron) tablet Take by oral route., Disp: , Rfl: furosemide (Lasix) 20 mg tablet, furosemide 20 mg tablet, Disp: , Rfl: hydroCHLOROthiazide (HYDRODiuril) 25 mg tablet, hydrochlorothiazide 25 mg tablet TAKE 1 TABLET BY MOUTH ONCE DAILY IN THE MORNING, Disp: , Rfl: HYDROcodone-acetaminophen (Carlisle) 5-325 mg tablet, hydrocodone 5 mg-acetaminophen 325 mg tablet TAKE 1 TABLET BY MOUTH EVERY 6 HOURS FOR 4 DAYS, Disp: , Rfl: hydroxychloroquine (Plaquenil) 200 mg tablet, hydroxychloroquine 200 mg tablet TAKE 1 TABLET BY MOUTH ONCE DAILY ALTERNATING WITH TWICE DAILY WITH FOOD, Disp: , Rfl: lisinopril 10 mg tablet, lisinopril 10 mg tablet, Disp: , Rfl: loratadine (Claritin) 10 mg tablet, in the morning., Disp: , Rfl: NIFEdipine XL (Procardia XL) 60 mg 24 hr tablet, nifedipine ER 60 mg tablet,extended release 24 hr, Disp: , Rfl: omeprazole (PriLOSEC) [address] capsule, 1 capsule in the morning., Disp: , Rfl: raNITIdine (Zantac) 150 mg tablet, Take 150 mg by mouth., Disp: , Rfl: sulfaSALAzine (Azulfidine) 500 mg EC tablet, sulfasalazine 500 mg tablet,delayed release take 2 tablets by mouth twice a day, Disp: , Rfl: tolterodine LA (Detrol LA) 4 mg 24 hr capsule, tolterodine ER 4 mg capsule,extended release 24 hr, Disp: , Rfl: traMADol (Ultram) 50 mg tablet, tramadol 50 mg tablet TAKE 1 TABLET BY MOUTH EVERY 6 HOURS NEEDED FOR 7 DAYS, Disp: , Rfl: Recent Labs No results found for: NA, K, CL, CO2, BUN, CREATININE, GLUCOSE, CALCIUM Imaging and other tests Assessment/Plan 1.pulmonary hypertension She is NYHA FC II, PAH due schleroderma. Euvolemic on physical exam Echo showed again severe pulmonary hypertension. I am going to repeat also the right heart cath to further LE need the details of her hemodynamic and especially her pulmonary vascular resistance. Last right heart cath was done in 2012. We well get her back on macitentan and adcirca and push insurance to cover her as much as we can. We will try to find a way to cover her medication. 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 [facility] 12-19-2021 Evaluation note Encounter Date Diagnosis Assessment Notes November, Pulmonary fibrosis, unspecified (ICD-10 - J84.10) November, Systemic sclerosis, unspecified (ICD-10 - M34.9) November, 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) [employer] Other Evaluation note* Diagnosis Urinary urgency Urgency of urination documented in this encounter [employer] Phone: evaluation note* Diagnosis Pulmonary fibrosis (HCC) Postinflammatory pulmonary fibrosis documented in this encounter [employer] Phone: evaluation noteNo assessment information available [facility] Work Phone: [facility] general Narrative - Reported* Type Description Date Medical History scleroderma Medical History Hypertension Medical History pulmonary hypertension Medical History Esophageal reflux Surgical History D&C 2000 Surgical History C section 2001 Surgical History tubal ligation 2001 [employer] Other Summary Purpose Family History No Family History Records FoundNo Family History Records FoundNo Family History Records FoundNo Family History Records FoundNo Family History Records FoundNo Family History Records FoundNo Family History Records Found Advance Directives No Advanced Directives Records FoundDocuments on File Type Date Recorded 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 Expl anation Advance Directives and Living Will Power of Content Production Specialist Documents on File Type Date Recorded 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 Expl anation ACP-Advance Directive ACP-Power of Content Production Specialist Documents on File Type Date Recorded 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 Expl anation ACP-Advance Directive ACP-Power of Content Production Specialist Advance Directive Response Recorded Date/ Time Advance Directives No June 11:06am Assessments Diagnosis Kidney stone Calculus of kidney Diagnosis Fall, initial encounter- Primary Abrasion of scalp, initial encounter Discharge Instructions * Instructions* Zakiya Knight, DO - 10/13/2020 Please monitor for any worsening headaches dizziness, nausea, vomiting or numbness or tingling. If these develop please return to the ER. * Attachments The following attachments cannot be sent through Care Everywhere. * Head Injury (Georgian) documented in this encounter Chief Complaint and Reason for Visit Chief Complaint pre surgery testing Chief Complaint pre surgery testing M20.12 Additional Source Comments INFORMATION SOURCE (unrecogn ized section and content) DATE CREATED AUTHOR 01/31/2018 [facility] DATE CREATED AUTHOR AUTHOR'S ORGANIZ ATION 09/01/2022 [facility] DATE CREATED AUTHOR AUTHOR'S ORGANIZ ATION 11/12/2022 [facility] DATE CREATED AUTHOR AUTHOR'S ORGANIZ ATION 12/12/20[facility] DATE CREATED AUTHOR AUTHOR'S ORGANIZ ATION 02/05/2023 [facility] DATE CREATED AUTHOR AUTHOR'S ORGANIZ ATION 05/15/2023 [facility] DATE CREATED AUTHOR AUTHOR'S ORGANIZ ATION 08/14/2023 [facility]IC Reason for Visit (unrecogniz ed section and content) Reason Comments Fall 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 Pt denies LOC, states I saw stars Specialty Diagnoses / Procedures Referred By Suki t Referred To Contact Radiology Diagnoses Pulmonary fibrosis (HCC) Procedures CT CHEST HIGH RESOLUTION CT CHEST WO CONTRAST Candi George MD Referral ID Status Reason Start Date Expiration Date Visits Re quested Visits Authorized [id number] Closed 11/06/2021 12/05/2021 1 1 Care Teams (unrecognized sec tion and content) Extruding Press Adjuster Relationship Specialty Start Date End Date Josefa Martinez MD [address] [place] [address] PCP - General 10/03/12 Extruding Press Adjuster Relationship Specialty Start Date End Date Josefa Martinez MD [address] [place] [address] PCP - General 10/03/12 Extruding Press Adjuster Relationship Specialty Start Date End Date Josefa Martinez MD [address] [place] [address] PCP - General 10/03/12 Team Status: Inactive Member Role Status Dates Josefa Martinez MD Primary Care Provider, Attending Pro vider Active Team Status: Active Member Role Status Dates Josefa Martinez MD Primary Care Provider Active Team Status: Inactive Member Role Status Dates Josefa Martinez MD Primary Care Provider Active Giacomo Benitez DPM Attending Provider Active Goals (unrecognized section and content) Goals may be documented in a n alternate section FOR RECORDS PERTAINING TO PATIENTS WHO ARE OR HAVE BEEN ENROLLED IN A CHEMICAL DEPENDENCY/SUBSTANCEABUSE PROGRAM, SOME INFORMATION MAY BE OMITTED. This clinical summary was aggregated from multiple sources. Caution should be exercised in using it in the provision of clinical care. This summary normalizes information from multiple sources, and as a consequence, information in this document may materially change the coding, format and clinical context of patient data. In addition, data may be omitted in some cases. CLINICAL DECISIONS SHOULD BE BASED ON THE PRIMARY CLINICAL RECORDS. [facility] [employer] provides no warranty or guarantee of the accuracy or completeness of information in this document.
== END 2023-08-14 08:42 | disposition home or self-care (01) ==
LOC: MAMMO 08:41
PROVIDERS: PCP Family Medicine; Visit Provider Family Medicine
DX: Z12.31 Encounter for screening mammogram for malignant neoplasm of breast (principal); Z80.0 Family history of malignant neoplasm of digestive organs
CPT/HCPCS: 77063; 77067

== ENCOUNTER 2023-09-30 09:53 | Outpatient (OUT) | payer OTHER, SELFPAY ==
--- OUTSIDE RECORDS SUMMARY | 2023-09-30 10:04 | XMS_ITS | CCD ---
Author Name Unknown Address [address] [place] [address] Organization [facility] Team Providers Care General Manager Food Name Role Phone BOB BROWN Unavailable Unavailable BOB BROWN Unavailable Unavailable MICHELLE, RUGEN Unavailable Unavailable BROWN, CHRISTOPHER Unavailable Unavailable SKIE, OREN Unavailable Unavailable SKIE, OREN Unavailable Unavailable MICHELLE, RUGEN Unavailable Unavailable MICHELLE, RUGEN Unavailable Unavailable [place] Unavailable Unavailable SKIE, OREN Unavailable Unavailable [place] Unavailable Unavailable PITRODA, TENNILLE Unavailable Unavailable PHYSICIAN, DEFAULT Unavailable Unavailable PHYSICIAN, DEFAULT Unavailable Unavailable MICHELLE, RUGEN Unavailable Unavailable PHYSICIAN, DEFAULT Unavailable Unavailable PHYSICIAN, DEFAULT Unavailable Unavailable MICHELLE, RUGEN Unavailable Unavailable Josefa Martinez Primary Care Provider Josefa Martinez Primary Care Provider [phone] Josefa Martinez Primary Care Provider [phone] Josefa Martinez MD Primary Care Provider Josefa Martinez MD Primary Care Provider Candi George Unavailable Josefa Martinez MD Primary Care Provider Josefa Martinez MD Primary Care Provider MD Josefa Martinez Primary Care Provider [phone] MD Josefa Martinez Attending Provider [phone] MIGUEL Benitez Attending Provider Josefa Martinez Primary Care Unavailable Giacomo Benitez Attending Unavailable Giacomo Benitez Admitting Unavailable Zwingle, Rugen M Admitting Unavailable Michelle, Rugen M Attending Unavailable Zwingle, Rugen M Primary Care Unavailable HALADAY, DR COLVIN Admitting Unavailable HALADAY, DR COLVIN Attending Unavailable MICHELLE, DR RIVERO Primary Care Unavailable HALADAY, DR COLVIN Consulting Unavailable HALADAY, DR COLVIN Admitting Unavailable HALADAY, DR COLVIN Attending Unavailable MICHELLE, DR RIVERO Primary Care Unavailable HALADAY, DR COLVIN Consulting Unavailable CANDI GEORGE Referring Unavailable MICHELLE, RUGEN M Primary Care Unavailable MICHELLE, RUGEN M Primary Care Unavailable HALADAY, VINICIUS Heredia Referring Unavailable MICHELLE, RUGEN M Primary Care Unavailable HALADAY, VINICIUS Heredia Referring Unavailable MICHELLE, RUGEN M Primary Care Unavailable HALADAY, VINICIUS Heredia Referring Unavailable MICHELLE, RUGEN M Primary Care Unavailable Frank JOE Attending Unavailable JUNIOR, Frnak Lea Attending Unavailable Frank JOE Attending Unavailable MICHELLE, RUGEN M Attending Unavailable LINK LOUISE Attending Unavailable ALGHOTHANI, MOHAMAShaista Admitting Unavailable MIREILLE ORTIZAMAD Attending Unavailable EDMOND, SAMER J Referring Unavailable EDMOND, SAMER J Attending Unavailable EDMOND, SAMER J Attending Unavailable EDMOND, SAMER J Referring Unavailable EDMOND, SAMER J Attending Unavailable EDMOND, SAMER J Attending Unavailable EDMOND, SAMER J Referring Unavailable EDMOND, SAMER J Attending Unavailable Allergies Allergy Classification Reported Allergen(s) Allergy Type Date of Onset Reaction(s) Facility (3 sources) amoxicillin / clavulanate; Translations: [Augmentin] Drug Allergy 1 [facility] Repository (16 sources) Amoxicillin-Pot Clavulanate; Translations: [AMOXICILLIN-PO T CLAVULANATE] Propensity to adverse reactions to drug 3 [place], [place] (1 source) Amoxicillin / Clavulanate Drug Allergy rash [facility] Other (1 source) Amoxicillin; Translations: [amoxicillin] Drug Allergy [facility] Repository Medications Current Medications Medication Drug Class(es) [...] disease (2 sources) Atherosclerotic heart disease of kashia coronary artery without angina pectoris; Translations: [Atherosclerotic heart disease of kashia coronary artery without angina pectoris] Onset: 09-21-2022 [...] RHINITIS] Onset: 04-15-2017 Chronic Pulmonary heart disease (7 sources) Other secondary pulmonary hypertension; Translations: [Secondary [...] Onset: 02-13-2017 Episodic Other aftercare (1 source) senior care (current) use of aspirin; Translations: [SNF (CURRENT) USE OF ASPIRIN] Onset: 04-15-2017 Episodic Other aftercare (3 sources) Other intermediate manager (current) drug therapy; Translations: [OTH SNF CURRENT DRUG THERAPY] Onset: 04-11-2022 Episodic Other [...] Value Interpretation Reference Range Facility Office Visiton 09-03-2023 Follow-up visit [id number] Sylvia Zavala 1965 F Date Provider Department Center 09/03/2023 [facility]JAKBO PRUITT [facility] Family History Problem Relation Age of Onset Hypertension Mother Hypertension Father Family Status - Relation Status Age at Mother Father Level of Service:92818 [place] OFFICE/OUTPATIENT ESTABLISHED MOD MDM 30 MIN [facility] Office Visiton 05-14-2023 Follow-up visit [id number] Sylvia Zavala 1965 F Date Provider Department Center 05/14/2023 JAKOB PARIS Family History Problem Relation Age of Onset Hypertension Mother Hypertension Father Family Status - Relation Status Age at Mother Father Level of Service:09878 [place] OFFICE/OUTPATIENT ESTABLISHED MOD MDM 30-39 MIN Normal [facility] Office Visiton 02-05-2023 Follow-up visit [id number] Sylvia Zavala 1965 F Date Provider Department Center 02/05/2023 JAKOB PARIS Family History Problem Relation Age of Onset Hypertension Mother Hypertension Father Family Status - Relation Status Age at Mother Father Level of Service:24333 [place] OFFICE/OUTPATIENT ESTABLISHED MOD MDM 30-39 MIN Normal [facility] RAD - Ultrasound Reporton RAD - Ultrasound Report [id number] Normal [facility] Ambulatory Visit Summaryon 0 02-04-2023 Ambulatory Visit Summary MICHELLENegarKEITHAASHISHSam Ari :1965 Visit Date:02/04/2023 Ambulatory Visit Instructions Your Diagnosis OAB (overactive bladder) Incomplete bladder emptying Personal history of kidney stones Tests Performed Urnls Dip Stick Auto w/o Microscopy POC 29169 Your Care Team Attending Physician - JUNIOR [...] JIMENEZ, Frank Lea Where: [facility] Patient Educationon 02-05-20 Patient Education Obstetrics and Gynecology Acute Urinary [...] these instructions at home: Medicines ? Take ieqx-agl-vascakp and prescription medicines only as told by [...] provider. Document Revised: 04/05/2021 Document Reviewed: 04/05/2021 Dr Lal [employer] Patient Education ? 2022 [employer]. Francisco Javier [facility] Urology Office/Clinic Noteon 02-04-2023 Urology Office/Clinic [...] and history for this patient from Dr. Joe. I have reviewed and verified the staff [...] year [facility] [address], [place] [address] [phone] Additional Instructions: Patient Education Acute Urinary Retention, Female IOneyda, personally scribed for Dr. Joe on 02/04/2023 10:16:46. . Documentation recorded by the geraldoibOneyda perry, accurately reflects the services(s) I performed and decisions made by me. Authenticated by Dr. Joe on 02/04/2023 10:18:56. Problem List/Past Medical History [...] vaccine, i (more content not included)... Normal [facility] Comment on above: Result Comment: Elec tronically Signed By: Frank JOE MD\.br\Date and Time Signed: 02/04/23 10:19 EDT\.br\Electronically [...] Interpreted by: Shar Chery MD Signed by: Sahr Chery MD 12/12/22 Final result [facility] 36on 11-22-2022 36 New Rx sent to [facility] specialty pharmacy. [facility] Documentationon 11-22-2022 Documentation [id number] Sylvia Zavala 1965 Provider Department Center 11/22/2022 CAROLA AMEZCUA [facility] Family History Problem Relation Age of Onset Hypertension Mother Hypertension Father Family Status - Relation Status Age at Mother Father Reason for Visit and Comments: Specialty Pharmacy Note: tadalafil Prescription [Other] [facility] 36on 11-21-2022 36 Pharmacy called and stated that the Cialis will need a prior auth, and he wanted to inform you that the medication is for males. Normal [facility] Telephoneon 11-21-2022 Telephone [id number] Sylvia Zavala 1965 Date Provider Department Center 11/21/2022 JAKOB PARIS [facility] Family History Problem Relation Age of Onset Hypertension Mother Hypertension Father Family Status - Relation Status Age at Mother Father Normal [facility] Office Visiton 11-09-2022 Follow-up visit [id number] Michelle SheikhEarlynne 1965 F Date Provider Department Center 11/09/2022 JAKOB PARIS [facility] Family History Problem Relation Age of Onset Hypertension Mother Hypertension Father Family Status - Relation Status Age at Mother Father Level of Service:06128 [place] OFFICE/OUTPATIENT ESTABLISHED MOD MDM 30-39 MIN Normal [facility] CBC AUTO DIFFon 11-06-2022 BASO # 0.1 103/ul Normal 0.0-0.1 [facility] Comment on above: Performed By: #### C BC #### [facility] [address] [address] [address] Stefany Corral Basophils/100 WBC (Bld) 0.7 % Normal 0.2-2.0 [facility] Comment on above: Performed By: #### C BC #### [facility] [address] [address] [address] Stefany Corral EO # 0.3 103/ul Normal 0.0-0.7 [facility] Comment on above: Performed By: #### C BC #### [facility] [address] [address] [address] Stefany Corral Eosinophils/100 WBC (Bld) 3.0 % Normal 0.9-7.0 [facility] Comment on above: Performed By: #### C BC #### [facility] [address] [address] [address] Stefany Corral Erythrocyte distribution width (RBC) [Ratio] 15.1 % Critically high 11.0-15.0 [facility] Comment on above: Performed By: #### C BC #### [facility] [address] [address] [address] Stefany Corral Hematocrit (Bld) [Volume fraction] 36.2 % Normal 36.0-48.0 [facility] Comment on above: Performed By: #### C BC #### [facility] [address] [address] [address] Stefany Corral Hemoglobin (Bld) [Mass/Vol] 12.0 g/dL Normal 12.0-16.0 [facility] Comment on above: Performed By: #### C BC #### [facility] [address] [place] [address] Dr. Stefany Corral IG # 0.03 10e3/ul Normal 0.00-0.03 [facility] Comment on above: Performed By: #### C BC #### [facility] [address] [place] [address] Dr. Stefany Corral IG % 0.3 % Normal 0.0-0.5 [facility] Comment on above: Performed By: #### C BC #### [facility] [address] [place] [address] Dr. Stefany Corral LYMPH # 2.4 103/ul Normal 1.2-3.8 [facility] Comment on above: Performed By: #### C BC #### [facility] [address] [place] [address] Dr. Stefany Corral Lymphocytes/100 WBC (Bld) 27.4 % Normal 20.5-60.0 [facility] Comment on above: Performed By: #### C BC #### [facility] [address] [place] [address] Dr. Stefany Corral MANUAL DIFF REQ NO Normal [facility] Comment on above: Performed By: #### C BC #### [facility] [address] [place] [address] Dr. Stefany Corral MCH (RBC) [Entitic mass] 28.4 pg Normal 26.7-34.0 [facility] Comment on above: Performed By: #### C BC #### [facility] [address] [place] [address] Dr. Stefany Corral MCHC (RBC) [Mass/Vol] 33.1 g/dL Normal 29.9-35.2 [facility] Comment on above: Performed By: #### C BC #### [facility] [address] [place] [address] Dr. Stefany Corral MCV (RBC) [Entitic vol] 85.6 fL Normal 81.0-99.0 [facility] Comment on above: Performed By: #### C BC #### [facility] [address] [place] [address] Dr. Stefany Corral MONO # 1.0 103/ul Critically high 0.3-0.8 [facility] Comment on above: Performed By: #### C BC #### [facility] [address] [place] [address] Dr. Stefany Corral Monocytes/100 WBC (Bld) 11.2 % Normal 1.7-12.0 [facility] Comment on above: Performed By: #### C BC #### [facility] [address] [place] [address] Dr. Stefany Corral NEUT # 5.0 103/ul Normal 1.4-6.5 [facility] Comment on above: Performed By: #### C BC #### [facility] [address] [place] [address] Dr. Stefany Corral Neutrophils/100 WBC (Bld) 57.4 % Normal 43.0-75.0 [facility] Comment on above: Performed By: #### C BC #### [facility] [address] [place] [address] Dr. Stefany Corral Platelet mean volume (Bld) [Entitic vol] 10.0 fL Normal 9.5-13.5 [facility] Comment on above: Performed By: #### C BC #### [facility] [address] [place] [address] Dr. Stefany Corral PLT 321 103/ul Normal 150-[address] [facility] Comment on above: Performed By: #### C BC #### [facility] [address] [place] [address] Dr. Stefany Corral RBC 4.23 106/ul Normal 4.20-5.40 [facility] Comment on above: Performed By: #### C BC #### [facility] [address] [place] [address] Dr. Stefany Corral WBC 8.6 103/ul Normal 4.0-11.0 [facility] Comment on above: Performed By: #### C BC #### [facility] [address] [place] [address] Dr. Stefany Corral CREATININEon 11-06-2022 Creatinine [Mass/Vol] 1.14 mg/dL Critically high 0.55-1.02 [facility] Comment on above: Performed By: #### L NEEMA CREA #### [facility] [address] [place] [address] Dr. Stefany Corral EGFR-AF GREENLANDIC 59 mL/min/1.73m2 Critically low >=60 [facility] Comment on above: Performed By: #### L NEEMA CREA #### [facility] [address] [place] [address] Dr. Stefany Corral EGFR-NON AF GREENLANDIC 49 mL/min/1.73m2 Critically low >=60 [facility] Comment on above: Performed By: #### Pawel BETHEA CREA #### [facility] [address] [place] [address] Dr. Stefany Corral LIVER PROFILEon 11-06-2022 Albumin [Mass/Vol] 3.5 g/dL Normal 3.4-5.0 [facility] Comment on above: Performed By: #### CHELSIE MILANA #### [facility] [address] [place] [address] Dr. Stefany Corral Albumin/Globulin [Mass ratio] 0.9 {ratio} Normal [facility] Comment on above: Performed By: #### Pawel BETHEA CREA #### [facility] [address] [place] [address] Dr. Stefany Corral ALP [Catalytic activity/Vol] 124 U/L Critically high 46-[address] [facility] Comment on above: Performed By: #### L NEEMA CREA #### [facility] [address] [place] [address] Dr. Stefany Corral ALT [Catalytic activity/Vol] 18 U/L Normal 14-59 [facility] Comment on above: Performed By: #### Pawel BETHEA CREA #### [facility] [address] [place] [address] Dr. Stefany Corral AST [Catalytic activity/Vol] 16 U/L Normal 15-37 [facility] Comment on above: Performed By: #### L PETRONA BETHEA #### [facility] [address] [place] [address] Dr. Stefany Corral BILI, CONJUGATED 0.0 mg/dL Normal 0.0-0.2 [facility] Comment on above: Performed By: #### PETRONA MILAN #### [facility] [address] [place] [address] Dr. Stefany Corral Bilirubin [Mass/Vol] 0.2 mg/dL Normal 0.2-1.0 [facility] Comment on above: Performed By: #### PETRONA MILAN #### [facility] [address] [place] [address] Dr. Stefany Corral Globulin (S) [Mass/Vol] 4.0 g/dL Normal T [facility] Comment on above: Performed By: #### PETRONA MILAN #### [facility] [address] [place] [address] Dr. Stefany Corral Protein [Mass/Vol] 7.5 g/dL Normal 6.4-8.2 [facility] Comment on above: Performed By: #### PETRONA MILAN #### [facility] [address] [place] [address] Dr. Stefany Corral [facility] SED RATE 19 mm/hr Normal <=30 [facility] Comment on above: Performed By: #### S EDR #### [facility] [address] [place] [address] Dr. Stefany Corral BASIC METABOLIC PANELon 03-0 Anion gap [Moles/Vol] 11 mmol/L Normal 7-20 [facility] Comment on above: Performed By: #### L AB15 ####[facility] ([facility])[address] [place] [address] Calcium [Mass/Vol] 9.9 mg/dL Normal 8.6-10.3 [facility] Comment on above: Performed By: #### L AB15 ####[facility] ([facility])[address] [place] [address] Chloride [Moles/Vol] 103 mmol/L Normal 98-[address] [facility] Comment on above: Performed By: #### L AB15 ####[facility] ([facility])[address] [place] [address] CO2 [Moles/Vol] 27 mmol/L Normal 21-31 [facility] Comment on above: Performed By: #### L AB15 ####[facility] ([facility])[address] [place] [address] Creatinine [Mass/Vol] 1.44 mg/dL High 0.60-1.20 [facility] Comment on above: Performed By: #### L AB15 ####[facility] ([facility])[address] [place] [address] GLOMERULAR FILTRATION RATE ML/MIN/1.73 SQ M.PREDICTED 42.2 mL/min/1.73m*2 Low >60.0 [facility] Comment on above: Result Comment: [facility]???s estimated glomerular filtration rate (eGFR) will [...] of individuals. Performed By: #### L AB15 ####[facility] ([facility])[address] [place] [address] Glucose [Mass/Vol] 101 mg/dL High 70-100 [facility] Comment on above: Performed By: #### L AB15 ####[facility] ([facility])[address] [place] [address] Potassium [Moles/Vol] 3.8 mmol/L Normal 3.5-5.1 [facility] Comment on above: Performed By: #### L AB15 ####[facility] ([facility])[address] [place] [address] Sodium [Moles/Vol] 137 mmol/L Normal 136-145 [facility] Comment on above: Performed By: #### L AB15 ####[facility] ([facility])[address] [place] [address] Urea nitrogen [Mass/Vol] 30 mg/dL High 7-25 [facility] Comment on above: Performed By: #### L AB15 ####[facility] ([facility])[address] [place] [address] UREA NITROGEN/CREATININE (MASS RATIO) IN SER/PLAS 20.8 Normal [facility] Comment on above: Performed By: #### L AB15 ####[facility] ([facility])[address] [place] [address] CBCon 10-03-2022 Erythrocyte distribution width (RBC) [Ratio] 14.6 % Normal 11.5-15.0 [facility] Comment on above: Performed By: #### L AB294 ####[facility] ([facility] [place] [address] ERYTHROCYTE MEAN CORPUSCULAR HEMOGLOBIN CONCENTRATION (G/DL) BY AUTOMATED 33.6 g/dL Normal 32.0-35.0 [facility] Comment on above: Performed By: #### L [id number] ####[facility] ([facility])[address] [place] [address] Hematocrit (Bld) [Volume fraction] 36.9 % Normal 36.0-48.0 [facility] Comment on above: Performed By: #### L [id number] ####[facility] ([facility])[address] [place] [address] Hemoglobin (Bld) [Mass/Vol] 12.4 g/dL Normal 12.0-15.0 [facility] Comment on above: Performed By: #### L [id number] ####[facility] ([facility])[address] [place] [address] MCH (RBC) [Entitic mass] 28.0 pg Normal 27.0-33.0 [facility] Comment on above: Performed By: #### L [id number] ####[facility] ([facility])[address] [place] [address] MCV (RBC) [Entitic vol] 83.3 fL Normal 82.0-98.0 [facility] Comment on above: Performed By: #### L [id number] ####[facility] ([facility])[address] [place] [address] PLATELETS (10*3/UL) IN BLOOD AUTOMATED COUNT 332 10*3/uL Normal 150-400 [facility] Comment on above: Performed By: #### L [id number] ####[facility] ([facility])[address] [place] [address] RBC (Bld) [#/Vol] 4.43 10*6/uL Normal 3.80-5.00 [facility] Comment on above: Performed By: #### L [id number] ####[facility] ([facility])[address] [place] [address] WBC (Bld) [#/Vol] 11.04 10*3/uL High 4.00-10.[address] [facility] Comment on above: Performed By: #### L [id number] ####[facility] ([facility])[address] [place] [address] HPon 10-03-2022 - Attestation signed by Manuel Ortiz MD [...] understands these risks and wishes to proceed. Manule Ortiz MD H&P reviewed. The patient was examined and there are no changes to the H&P. [facility] Letter (Out)on 09-24-2022 Letter (Out) [id number] Sylvia Garay 1965 F Date Provider Department Center 09/24/2022 None-None [facility] AUTH [facility] Family History Problem Relation Age of Onset Hypertension Mother Hypertension Father Family Status - Relation Status Age at Mother Father Normal [facility] HPon 09-21-2022 HP Subjective Earlynne Michelle Sheikh is a 57 y.o. year old [...] THE MORNING, Disp: , Rfl: HYDROcodone-acetamino phen ([place]) 5-325 mg tablet, hydrocodone 5 mg-acetaminophen 325 [...] disease with systemic sclerosis per rheumatology [facility] Office Visiton 09-21-2022 Follow-up visit [id number] Sylvia Garay 1965 F Date Provider Department Center 09/21/2022 JAKOB PARIS [facility] Family History Problem Relation Age of Onset Hypertension Mother Hypertension Father Family Status - Relation Status Age at Mother Father Level of Service:29087 [place] OFFICE/OUTPATIENT ESTABLISHED MOD MDM 30-39 MIN Reason for Visit and Comments: Follow-up [815559] - Echo done today. Patient states there is not problems or concerns [facility] CBC AUTO DIFFon 09-11-2022 BASO # 0.1 103/ul Normal 0.0-0.[address] [facility] Comment on above: Performed By: #### C BC #### [facility] [address] [place] [address] Dr. Stefany Corral Basophils/100 WBC (Bld) 0.6 % Normal 0.2-2.0 [facility] Comment on above: Performed By: #### C BC #### [facility] [address] [place] [address] Dr. Stefany Corral EO # 0.1 103/ul Normal 0.0-0.7 [facility] Comment on above: Performed By: #### C BC #### [facility] [address] [place] [address] Dr. Stefany Corral Eosinophils/100 WBC (Bld) 1.4 % Normal 0.9-7.0 [facility] Comment on above: Performed By: #### C BC #### [facility] [address] [place] [address] Dr. Stefany Corral Erythrocyte distribution width (RBC) [Ratio] 13.7 % Normal 11.0-15.0 [facility] Comment on above: Performed By: #### C BC #### [facility] [address] [place] [address] Dr. Stefany Corral Hematocrit (Bld) [Volume fraction] 40.2 % Normal 36.0-48.0 [facility] Comment on above: Performed By: #### C BC #### [facility] [address] [place] [address] Dr. Stefany Corral Hemoglobin (Bld) [Mass/Vol] 13.4 g/dL Normal 12.0-16.0 [facility] Comment on above: Performed By: #### C BC #### [facility] [address] [place] [address] Dr. Stefany Corral IG # 0.03 10e3/ul Normal 0.00-0.03 [facility] Comment on above: Performed By: #### C BC #### [facility] [address] [place] [place] [address] Dr. Stefany Corral IG % 0.3 % Normal 0.0-0.5 [facility] Comment on above: Performed By: #### C BC #### [facility] [address] [place] [address] Dr. Stefany Corral LYMPH # 2.4 103/ul Normal 1.2-3.8 [facility] Comment on above: Performed By: #### C BC #### [facility] [address] [place] [address] Dr. Stefany Corral Lymphocytes/100 WBC (Bld) 27.4 % Normal 20.5-60.0 [facility] Comment on above: Performed By: #### C BC #### [facility] [address] [place] [address] Dr. Stefany Corral MANUAL DIFF REQ NO Normal [facility] Comment on above: Performed By: #### C BC #### [facility] [address] [place] [address] Dr. Stefany Corral MCH (RBC) [Entitic mass] 27.5 pg Normal 26.7-34.0 [facility] Comment on above: Performed By: #### C BC #### [facility] [address] [place] [address] Dr. Stefany Corral MCHC (RBC) [Mass/Vol] 33.3 g/dL Normal 29.9-35.2 [facility] Comment on above: Performed By: #### C BC #### [facility] [address] [place] [address] Dr. Stefany Corral MCV (RBC) [Entitic vol] 82.4 fL Normal 81.0-99.0 [facility] Comment on above: Performed By: #### C BC #### [facility] [address] [place] [address] Dr. Stefany Corral MONO # 0.8 103/ul Normal 0.3-0.8 [facility] Comment on above: Performed By: #### C BC #### [facility] [address] [place] [address] Dr. Stefany Corral Monocytes/100 WBC (Bld) 8.6 % Normal 1.7-12.0 [facility] Comment on above: Performed By: #### C BC #### [facility] [address] [place] [address] Dr. Stefany Corral NEUT # 5.5 103/ul Normal 1.4-6.5 [facility] Comment on above: Performed By: #### C BC #### [facility] [address] [place] [address] Dr. Stefany Corral Neutrophils/100 WBC (Bld) 61.7 % Normal 43.0-75.0 [facility] Comment on above: Performed By: #### C BC #### [facility] [address] [place] [address] Dr. Stefany Corral Platelet mean volume (Bld) [Entitic vol] 10.2 fL Normal 9.5-13.[address] [facility] Comment on above: Performed By: #### C BC #### [facility] [address] [place] [address] Dr. Stefany Corral PLT 326 103/ul Normal 150-450 [facility] Comment on above: Performed By: #### C BC #### [facility] [address] [place] [address] Dr. Stefany Corral RBC 4.88 106/ul Normal 4.20-5.40 [facility] Comment on above: Performed By: #### C BC #### [facility] [address] [place] [address] Dr. Stefany Corral WBC 8.9 103/ul Normal 4.0-11.[address] [facility] Comment on above: Performed By: #### C BC #### [facility] [address] [place] [address] Dr. Stefany Corral CREATININEon 09-11-2022 Creatinine [Mass/Vol] 1.34 mg/dL Critically high 0.55-1.02 [facility] Comment on above: Performed By: #### PETRONA MILAN #### [facility] [address] [place] [address] Dr. Stefany Corral EGFR-AF GREENLANDIC 49 mL/min/1.73m2 Critically low >=[address] [facility] Comment on above: Performed By: #### PETRONA MILAN #### [facility] [address] [place] [address] Dr. Stefany Corral EGFR-NON AF GREENLANDIC 41 mL/min/1.73m2 Critically low >=[address] [facility] Comment on above: Performed By: #### PETRONA MILAN #### [facility] [address] [place] [address] Dr. Stefany Corral LIVER PROFILEon 09-11-2022 Albumin [Mass/Vol] 3.8 g/dL Normal 3.4-5.0 [facility] Comment on above: Performed By: #### PETRONA MILAN #### [facility] [address] [place] [address] Dr. Stefany Corral Albumin/Globulin [Mass ratio] 0.9 {ratio} Normal [facility] Comment on above: Performed By: #### PETRONA MILAN #### [facility] [address] [place] [address] Dr. Stefany Corral ALP [Catalytic activity/Vol] 114 U/L Normal 46-[address] [facility] Comment on above: Performed By: #### PETRONA MILAN #### [facility] [address] [place] [address] Dr. Stefany Corral ALT [Catalytic activity/Vol] 12 U/L Critically low 14-59 [facility] Comment on above: Performed By: #### PETRONA MILAN #### [facility] [address] [place] [address] Dr. Stefany Corral AST [Catalytic activity/Vol] 17 U/L Normal 15-37 [facility] Comment on above: Performed By: #### PETRONA MILAN #### [facility] [address] [place] [address] Dr. Stefany Corral BILI, CONJUGATED 0.0 mg/dL Normal 0.0-0.2 [facility] Comment on above: Performed By: #### PETRONA MILAN #### [facility] [address] [place] [address] Dr. Stefany Corral Bilirubin [Mass/Vol] 0.2 mg/dL Normal 0.2-1.0 [facility] Comment on above: Performed By: #### PETRONA MILAN #### [facility] [address] [address] [address] Stefany Corral Globulin (S) [Mass/Vol] 4.3 g/dL Normal T [facility] [place] [facility] Comment on above: Performed By: #### L PETRONA BETHEA #### [facility] [address] [address] [address] Stefany Corral Protein [Mass/Vol] 8.1 g/dL Normal 6.4-8.2 [facility] Comment on above: Performed By: #### L PETRONA BETHEA #### [facility] [address] [place], [place] [address] Dr. Stefany Corral SED RATE [facility] 2022 SED RATE 79 mm/hr Critically high <=30 [facility] Comment on above: Performed By: #### S EDR #### [facility] [address] [address] [address] Stefany Corral XR chest 2V*on 08-13-2022 XR chest 2V* [facility] [place] [address] [place] [address] XRay Report Signed Patient: Sylvia Bass MR#: [id number] : 1965 Acct:[id number] Age/Sex: 57 / F ADM Date: 08/13/22 Loc: XD Room: Type: [facility] Attending Dr: Giacomo Benitez DPM Copies to: Giacomo Benitez DPM Ordering Provider: [...] Devonte Platt M.D.08/13/2022 2:42 PM Dictation Location: [place] [address] Transcribed By: [facility] 08/13/22 1442 Dictated By: Devonte Platt DO 08/13/22 1441 Signed By: 08/13/22 1442 Normal [facility] Basic Metabolic Panelon 12-2 Anion gap [Moles/Vol] 15.3 mmol/L High 6.0-15.0 [facility] Comment on above: Order Comment: PT IS NON FASTING Reason for Exam HAV (hallux abducto valgus), left;Metatarsalgia of right michelet Performed By: #### C BC, BMP #### [facility] [address] [id number] [facility] Calcium [Mass/Vol] 9.2 mg/dL Normal 8.2-10.2 [facility] Comment on above: Order Comment: PT IS NON FASTING Reason for Exam HAV (hallux abducto valgus), left;Metatarsalgia of right michelet Result Comment: PERF ORMED BY: [place] [address] PATHOLOGIST [employer] JESUSITA NICHOLE M.D. Performed By: #### C BC, BMP #### [facility] [address] [place] [id number] [facility] Chloride [Moles/Vol] 98 mmol/L Normal 95-114 [facility] Comment on above: Order Comment: PT IS NON FASTING Reason for Exam HAV (hallux abducto valgus), left;Metatarsalgia of right michelet Performed By: #### C BC, BMP #### [facility] [address] [id number] [place] CO2 [Moles/Vol] 23.6 mmol/L Normal 22.0-30.0 [facility] Comment on above: Order Comment: PT IS NON FASTING Reason for Exam HAV (hallux abducto valgus), left;Metatarsalgia of right michelet Performed By: #### C BC, BMP #### [facility] [address] [id number] [facility] Creatinine [Mass/Vol] 1.48 mg/dL High 0.44-1.03 [facility] Comment on above: Order Comment: PT IS NON FASTING Reason for Exam HAV (hallux abducto valgus), left;Metatarsalgia of right michelet Performed By: #### C BC, BMP #### [facility] [address] [place] [address] [place] Estimated GFR ( Shandra 44 [facility] Comment on above: Order Comment: PT IS NON FASTING Reason for Exam HAV (hallux abducto valgus), left;Metatarsalgia of right michelet Result Comment: GFR estimated reference range: According to KDOQI guidelines, <60 ml/min/1.73m2 is sufficient to diagnose a patient with chronic kidney disease. Performed By: #### C BC, BMP #### [facility] [address] [id number] [place] Estimated GFR (Non- Am 36 [facility] Comment on above: Order Comment: PT IS NON FASTING Reason for Exam HAV (hallux abducto valgus), left;Metatarsalgia of right michelet Performed By: #### C BC, BMP #### [facility] [address] Glucose [Mass/Vol] 95 mg/dL Normal 70-100 [facility] Comment on above: Order Comment: PT IS NON FASTING Reason for Exam HAV (hallux abducto valgus), left;Metatarsalgia of right michelet Result Comment: [facility] Glucose Reference Range is dependent on time and content of last meal. Glucose of more than 200 mg/dL in a nonstressed, ambulatory subject supports the diagnosis of Diabetes Mellitus. ADA recommended reference range Performed By: #### C BC, BMP #### [facility] [address] Potassium [Moles/Vol] 3.9 mmol/L Normal 3.5-5.1 [facility] Comment on above: Order Comment: PT IS NON FASTING Reason for Exam HAV (hallux abducto valgus), left;Metatarsalgia of right michelet Performed By: #### C BC, BMP #### [facility] [address] [place] [id number] [facility] Sodium [Moles/Vol] 133 mmol/L Low 136-146 [facility] Comment on above: Order Comment: PT IS NON FASTING Reason for Exam HAV (hallux abducto valgus), left;Metatarsalgia of right michelet Performed By: #### C BC, BMP #### [facility] [address] Urea nitrogen [Mass/Vol] 29 mg/dL High 04-20 [facility] Comment on above: Order Comment: PT IS NON FASTING Reason for Exam HAV (hallux abducto valgus), left;Metatarsalgia of right michelet Performed By: #### C BC, BMP #### [facility] [address] Basophils Auto (Bld) [#/Vol] Ordered By: Josefa Martinez on 07-25-2022 Basophils (Bld) [#/Vol] 0.0 10*3/uL 0.0-0.2 [facility] Basophils/100 WBC Auto (Bld) Ordered By: Josefa Martinez on 07-25-2022 Basophils/100 WBC (Bld) 0.4 % . [facility] Complete Blood Count Auto Di ffon 07-25-2022 Basophils (Bld) [#/Vol] 0.0 10*3/uL Normal 0.0-0.2 [facility] Comment on above: Order Comment: Reaso n for Exam HAV (hallux abducto valgus), left;Metatarsalgia of right michelet Result Comment: PERF ORMED BY: [place] [address] PATHOLOGIST [employer] JESUSITA NICHOLE M.D. Performed By: #### C VIVIANA, BMP #### [facility] [address] Basophils/100 WBC (Bld) 0.4 % Normal . [facility] Comment on above: Order Comment: Reaso n for Exam HAV (hallux abducto valgus), left;Metatarsalgia of right michelet Performed By: #### C BC, BMP #### [facility] [address] Eosinophils (Bld) [#/Vol] 0.5 10*3/uL High 0.0-0.45 [facility] Comment on above: Order Comment: Reaso n for Exam HAV (hallux abducto valgus), left;Metatarsalgia of right michelet Performed By: #### C BC, BMP #### [address] Eosinophils/100 WBC (Bld) 6.1 % Normal . [facility] Comment on above: Order Comment: Reaso n for Exam HAV (hallux abducto valgus), left;Metatarsalgia of right michelet Performed By: #### C BC, BMP #### [address] Erythrocyte distribution width (RBC) [Ratio] 14.9 % Normal 11.9-15.3 [facility] Comment on above: Order Comment: Reaso n for Exam HAV (hallux abducto valgus), left;Metatarsalgia of right michelet Performed By: #### C BC, BMP #### [address] Hematocrit (Bld) [Volume fraction] 38.3 % Normal 34.0-46.4 [facility] Comment on above: Order Comment: Reaso n for Exam HAV (hallux abducto valgus), left;Metatarsalgia of right michelet Performed By: #### C BC, BMP #### [address] Hemoglobin (Bld) [Mass/Vol] 12.5 g/dL Normal 11.8-15.4 [facility] Comment on above: Order Comment: Reaso n for Exam HAV (hallux abducto valgus), left;Metatarsalgia of right michelet Performed By: #### C BC, BMP #### [address] Lymphocytes (Bld) [#/Vol] 2.6 10*3/uL Normal 1.00-4.8 [facility] Comment on above: Order Comment: Reaso n for Exam HAV (hallux abducto valgus), left;Metatarsalgia of right michelet Performed By: #### C BC, BMP #### [address] [place] [address] [place] Lymphocytes/100 WBC (Bld) 32.8 % Normal . [facility] Comment on above: Order Comment: Reaso n for Exam HAV (hallux abducto valgus), left;Metatarsalgia of right michelet Performed By: #### C BC, BMP #### [address] MCH (RBC) [Entitic mass] 27.1 pg Normal 24.7-34.3 [facility] Comment on above: Order Comment: Reaso n for Exam HAV (hallux abducto valgus), left;Metatarsalgia of right michelet Performed By: #### C BC, BMP #### [address] MCV (RBC) [Entitic vol] 83.2 fL Normal 80-100 [facility] Comment on above: Order Comment: Reaso n for Exam HAV (hallux abducto valgus), left;Metatarsalgia of right michelet Performed By: #### C BC, BMP #### [address] Mean Corpuscular HGB Conc 32.5 g/dL Normal 32.0-35.0 [facility] Comment on above: Order Comment: Reaso n for Exam HAV (hallux abducto valgus), left;Metatarsalgia of right michelet Performed By: #### C BC, BMP #### [address] Monocytes (Bld) [#/Vol] 1.0 10*3/uL High 0.0-0.8 [facility] Comment on above: Order Comment: Reaso n for Exam HAV (hallux abducto valgus), left;Metatarsalgia of right michelet Performed By: #### C BC, BMP #### [address] Monocytes/100 WBC (Bld) 12.5 % Normal . [facility] Comment on above: Order Comment: Reaso n for Exam HAV (hallux abducto valgus), left;Metatarsalgia of right michelet Performed By: #### C BC, BMP #### [facility] [address] Neutrophils (Bld) [#/Vol] 3.8 10*3/uL Normal 1.8-7.7 [facility] Comment on above: Order Comment: Reaso n for Exam HAV (hallux abducto valgus), left;Metatarsalgia of right michelet Performed By: #### C BC, BMP #### [facility] [address] Neutrophils/100 WBC (Bld) 48.2 % Normal . [facility] Comment on above: Order Comment: Reaso n for Exam HAV (hallux abducto valgus), left;Metatarsalgia of right michelet Performed By: #### C BC, BMP #### [facility] [address] NRBC% 0.1 /100{WBC} Normal 0-0.5 [facility] Comment on above: Order Comment: Reaso n for Exam HAV (hallux abducto valgus), left;Metatarsalgia of right michelet Performed By: #### C BC, BMP #### [facility] [address] Platelet mean volume (Bld) [Entitic vol] 8.6 fL Normal 6.3-10.7 [facility] Comment on above: Order Comment: Reaso n for Exam HAV (hallux abducto valgus), left;Metatarsalgia of right michelet Performed By: #### C BC, BMP #### [facility] [address] [place] [address] [place] Platelets (Bld) [#/Vol] 257 10*3/uL Normal 150-450 [facility] Comment on above: Order Comment: Reaso n for Exam HAV (hallux abducto valgus), left;Metatarsalgia of right michelet Performed By: #### C BC, BMP #### [facility] [address] [place] [address] [place] RBC (Bld) [#/Vol] 4.60 10*6/uL Normal 3.60-5.00 [facility] Comment on above: Order Comment: Reaso n for Exam HAV (hallux abducto valgus), left;Metatarsalgia of right michelet Performed By: #### C BC, BMP #### [facility] [address] WBC (Bld) [#/Vol] 7.9 10*3/uL Normal 3.8-11.6 [facility] Comment on above: Order Comment: Reaso n for Exam HAV (hallux abducto valgus), left;Metatarsalgia of right michelet Performed By: #### C BC, BMP #### [facility] [address] Creatinine and Glomerular fi ltration rate.predicted panel (S/P/Bld)Ordered By: Josefa Martinez on 07-25-2022 Creatinine [Mass/Vol] 1.48 mg/dL 0.44-1.03 [facility] ECG 12 lead ECGon 07-25-2022 ECG 12 lead ECG [facility] [place] [address] [place] [address] Electrocardiograph Report Signed Patient: Sylvia Bass MR#: [id number] : 1965 Acct:[id number] Age/Sex: 57 / F ADM Date: 07/25/22 Loc: Room: Type: [facility] Attending Dr: Josefa Martinez MD Ordering Provider: [...] No previous ECGs available Confirmed by JAN BALDERRAMA MD ([id number]) on 07/25/2022 4:25:20 PM Referred By: JOESFA MARTINEZ Electronically Signed By:JAN BALDERRAMA MD Transcribed By: JOSE Signed By aJn Balderrama MD 1 09/25/21 1625 Normal [facility] Eosinophils Auto (Bld) [#/Vo l]Ordered By: Josefa Martinez on 07-25-2022 Eosinophils (Bld) [#/Vol] 0.5 10*3/uL 0.0-0.45 [facility] Eosinophils/100 WBC Auto (Bl d)Ordered By: Josefa Martinez on 07-25-2022 Eosinophils/100 WBC (Bld) 6.1 % . [facility] Erythrocyte distribution wid th Auto (RBC) [Ratio]Ordered By: Josefa Martinez on 07-25-2022 Erythrocyte distribution width (RBC) [Ratio] 14.9 % 11.9-15.3 [facility] Estimated glomerular filtrat ion rate (GFR) non- AmericanOrdered By: Josefa Martinez on 07-25-2022 GFR/1.73 sq M.predicted among non-blacks MDRD (S/P/Bld) [Vol rate/Area] 36 mL/Min [facility] Hematocrit Auto (Bld) [Volum e fraction]Ordered By: Josefa Martinez on 07-25-2022 Hematocrit (Bld) [Volume fraction] 38.3 % 34.0-46.4 [facility] Hemoglobin [Mass/volume] in BloodOrdered By: Josefa Martinez on 07-25-2022 Hemoglobin (Bld) [Mass/Vol] 12.5 g/dL 11.8-15.4 [facility] Leukocytes [#/volume] correc brendan for nucleated erythrocytes in Blood by Automated counOrdered By: Josefa Martinez on 07-25-2022 WBC corrected for nucl RBC Auto (Bld) [#/Vol] 7.9 10*3/uL 3.8-11.6 [facility] Lymphocytes Auto (Bld) [#/Vo l]Ordered By: Josefa Martinez on 07-25-2022 Lymphocytes (Bld) [#/Vol] 2.6 10*3/uL 1.00-4.8 [facility] Lymphocytes/100 WBC Auto (Bl d)Ordered By: Josefa Michelle on 07-25-2022 Lymphocytes/100 WBC (Bld) 32.8 % . [facility] MCH Auto (RBC) [Entitic mass ]Ordered By: Josefa Zwingle on 07-25-2022 MCH (RBC) [Entitic mass] 27.1 pg 24.7-34.3 [facility] MCHC Auto (RBC) [Mass/Vol]Or dered By: Rugamarjit Zwingle on 07-25-2022 MCHC (RBC) [Mass/Vol] 32.5 g/dL 32.0-35.0 [facility] MCV Auto (RBC) [Entitic vol] Ordered By: Josefa Zwingle on 07-25-2022 MCV (RBC) [Entitic vol] 83.2 fL 80-100 [facility] Monocytes Auto (Bld) [#/Vol] Ordered By: Josefa Zwingle on 07-25-2022 Monocytes (Bld) [#/Vol] 1.0 10*3/uL 0.0-0.8 [facility] Monocytes/100 WBC Auto (Bld) Ordered By: Josefa Michelle on 07-25-2022 Monocytes/100 WBC (Bld) 12.5 % . [facility] Neutrophils Auto (Bld) [#/Vo l]Ordered By: Josefa Michelle on 07-25-2022 Neutrophils (Bld) [#/Vol] 3.8 10*3/uL 1.8-7.7 [facility] Neutrophils/100 WBC Auto (Bl d)Ordered By: Josefa Michelle on 07-25-2022 Neutrophils/100 WBC (Bld) 48.2 % . [facility] No Panel InformationOrdered By: Josefa Martinez on 07-25-2022 Estimated GFR () 44 mL/Min [facility] Comment on above: GFR estimated refere nce range: According to KDOQI guidelines, <60 ml/min/1.73m2 is sufficient to diagnose a patient with chronic kidney disease. Pharmacy Creatinine Clearance (Chem N/A [facility] Nucleated erythrocytes [Pres ence] in Blood by Automated countOrdered By: Josefa Martinez on 07-25-2022 Nucleated RBC Auto Ql (Bld) 0.1 /100{WBC} 0-0.5 [facility] Platelet mean volume Auto (B ld) [Entitic vol]Ordered By: Josefa Martinez on 07-25-2022 Platelet mean volume (Bld) [Entitic vol] 8.6 fL 6.3-10.7 [facility] Platelets Auto (Bld) [#/Vol] Ordered By: Josefa Martinez on 07-25-2022 Platelets (Bld) [#/Vol] 257 10*3/uL 150-450 [facility] RBC Auto (Bld) [#/Vol]Ordere d By: Josefa Martinez on 07-25-2022 RBC (Bld) [#/Vol] 4.60 10*6/uL 3.60-5.00 [facility] Serum or plasma anion gap de terminationOrdered By: Josefa Martinez on 07-25-2022 Anion gap [Moles/Vol] 15.3 mmol/L 6.0-15.0 [facility] Serum or plasma calcium enma urement (mass/volume)Ordered By: Josefa Martinez on 07-25-2022 Calcium [Mass/Vol] 9.2 mg/dL 8.2-10.2 [facility] Serum or plasma chloride horace surement (moles/volume)Ordered By: Josefa Martinez on 07-25-2022 Chloride [Moles/Vol] 98 mmol/L 95-114 [facility] Serum or plasma glucose enma urement (mass/volume)Ordered By: Josefa Martinez on 07-25-2022 Glucose [Mass/Vol] 95 mg/dL 70-100 [facility] Comment on above: ADA recommended refe rence rangeRandom Glucose Reference Range is dependent on time and content of last meal. Glucose of more than 200 mg/dL in a nonstressed, ambulatory subject supports the diagnosis of Diabetes Mellitus. Serum or plasma potassium me asurement (moles/volume)Ordered By: Josefa Martinez on 07-25-2022 Potassium [Moles/Vol] 3.9 mmol/L 3.5-5.1 [facility] Serum or plasma sodium measu rement (moles/volume)Ordered By: Josefa Martinez on 07-25-2022 Sodium [Moles/Vol] 133 mmol/L 136-146 [facility] Serum or plasma total carbon dioxide measurement (moles/volume)Ordered By: Josefa Martinez on 07-25-2022 CO2 [Moles/Vol] 23.6 mmol/L 22.0-30.0 [facility] Serum or plasma urea nitroge n measurement (mass/volume)Ordered By: Josefa Martinez on 07-25-2022 Urea nitrogen [Mass/Vol] 29 mg/dL 04-20 [facility] WBC Auto (Bld) [#/Vol]Ordere d By: Josefa Martinez on 07-25-2022 WBC (Bld) [#/Vol] 7.9 10*3/uL 3.8-11.6 [facility] CBC with Auto Differentialon 06-11-2022 Absolute Eos # 0.11 [place] [facility] Absolute Immature Granulocyte 0.00 [facility] Absolute Lymph # 4.52 High [facility] Absolute [place] # 0.95 [facility] Atypical Lymphocytes 2 % [facility] Atypical Lymphocytes Absolute 0.21 k/uL [facility] Basophils (Bld) [#/Vol] 0.11 10*3/uL [facility] Basophils/100 WBC (Bld) 1 % 0 - 2 % [facility] Eosinophils/100 WBC (Bld) 1 % 1 - 4 % [facility] Hematocrit (Bld) [Volume fraction] 35.9 % Low 36.3 - 47.1 % [facility] Hemoglobin (Bld) [Mass/Vol] 11.4 g/dL Low 11.9 - 15.1 g/dL [facility] Immature granulocytes/100 WBC (Bld) 0 % 0 [facility] Interpretation and review of laboratory results Abnormal [facility] Lymphocytes/100 WBC (Bld) 43 % 24 - 43 % [facility] MCH (RBC) [Entitic mass] 27.2 pg 25.2 - 33.5 pg [facility] MCHC (RBC) [Mass/Vol] 31.8 g/dL 28.4 - 34.8 g/dL [facility] MCV (RBC) [Entitic vol] 85.7 fL 82.6 - 102.9 fL [facility] Monocytes/100 WBC (Bld) 9 % 3 - 12 % B ON [facility] Morphology William (Bld) [Interp] Platelet scan shows Normal Platelets [facility] NRBC Automated 0.0 0.0 per 100 WBC [facility] Platelet distribution width (Bld) [Ratio] 13.4 % 11.8 - 14.4 % [facility] Platelet mean volume (Bld) [Entitic vol] 10.3 fL 8.1 - 13.5 fL [facility] Platelets (Bld) [#/Vol] 335 10*3/uL [facility] RBC (Bld) [#/Vol] 4.19 10*6/uL 3.95 - 5.1 1 m/uL [facility] Segmented neutrophils/100 WBC (Bld) 44 % 36 - 65 % [facility] Segs Absolute 4.60 [facility] WBC (Bld) [#/Vol] 10.5 10*3/uL [facility] CBC with Diffon 06-11-2022 Abs. Atypical Lymphs 0.21 k/uL Normal [facility] Comment on above: Performed By: #### C DP, LIVP, CREG, SED #### [facility] [address] [place] [address] Production Line Mechanic: Chip Andino MD Abs. Basophil 0.11 k/uL Normal 0.0-0.2 [facility] Comment on above: Performed By: #### C DP, LIVP, CREG, SED #### [facility] [address] [place] [address] Production Line Mechanic: Chip Andino MD Abs.Imm.Granulocyte 0.00 k/uL Normal 0.00-0.30 [facility] Comment on above: Performed By: #### C DP, LIVP, CREG, SED #### [facility] [address] [place], [facility]83 Production Line Mechanic: Chip Andino MD Abs.Neutrophil (Seg) 4.60 k/uL Normal 1.50-8.10 [facility] Comment on above: Performed By: #### C DP, LIVP, CREG, SED #### [address] [place], [place] [address] Production Line Mechanic: Chip Andino MD Atypical Lymphs 2 % Normal [facility] Comment on above: Performed By: #### C DP, LIVP, CREG, SED #### [address] [place] [address] Production Line Mechanic: Chip Andino MD Basophils/100 WBC (Bld) 1 % Normal 0-2 [facility] Comment on above: Performed By: #### C DP, LIVP, CREG, SED #### [address] [place], [place] [address] Production Line Mechanic: Chip Andino MD Eosinophils (Bld) [#/Vol] 0.11 10*3/uL Normal 0.00-0.44 [facility] Comment on above: Performed By: #### C DP, LIVP, CREG, SED #### [address] [place], [place] [address] Production Line Mechanic: Chip Andino MD Eosinophils/100 WBC (Bld) 1 % Normal 1-4 [facility] Comment on above: Performed By: #### C DP, LIVP, CREG, SED #### [address] [place] [address] Production Line Mechanic: Chip Andino MD Immature granulocytes/100 WBC (Bld) 0 % Normal 0 [facility] Comment on above: Performed By: #### C DP, LIVP, CREG, SED #### [address] [place] [facility]83 Production Line Mechanic: Chip Andino MD Lymphocytes (Bld) [#/Vol] 4.52 10*3/uL High 1.10-3.70 [facility] Comment on above: Performed By: #### C DP, LIVP, CREG, SED #### [facility] [address] [place] [address] Production Line Mechanic: Chip Andino MD Lymphocytes/100 WBC (Bld) 43 % Normal 24-43 [facility] Comment on above: Performed By: #### C DP, LIVP, CREG, SED #### [facility] [address] [place], [facility]83 Production Line Mechanic: Chip Andino MD Monocytes (Bld) [#/Vol] 0.95 10*3/uL Normal 0.10-1.20 [facility] Comment on above: Performed By: #### C DP, LIVP, CREG, SED #### [address] [place], [facility]83 Production Line Mechanic: Chip Andino MD Monocytes/100 WBC (Bld) 9 % Normal 3-12 M [facility] Comment on above: Performed By: #### C DP, LIVP, CREG, SED #### [address] [place], [facility]83 Production Line Mechanic: Chip Andino MD Morphology William (Bld) [Interp] Platelet scan shows Normal Platelets Normal [facility] Comment on above: Performed By: #### C DP, LIVP, CREG, SED #### [facility] [address] [place] [address] Production Line Mechanic: Chip Andino MD Neutrophil (Seg) 44 % Normal 36-65 [facility] Comment on above: Performed By: #### C DP, LIVP, CREG, SED #### [address] [place], [facility]83 Production Line Mechanic: Chip Andino MD Erythrocyte distribution width (RBC) [Ratio] 13.4 % Normal 11.8-14.4 [facility] Comment on above: Performed By: #### C DP, LIVP, CREG, SED #### [address] [place] [id number] Production Line Mechanic: Chip Andino MD Hematocrit (Bld) [Volume fraction] 35.9 % Low 36.3-47.1 [facility] Comment on above: Performed By: #### C DP, LIVP, CREG, SED #### [address] [place] [id number] Production Line Mechanic: Chip Andino MD Hemoglobin (Bld) [Mass/Vol] 11.4 g/dL Low 11.9-15.1 [facility] Comment on above: Performed By: #### C DP, LIVP, CREG, SED #### [address] [place], [place] [address] Production Line Mechanic: Chip Andino MD MCH (RBC) [Entitic mass] 27.2 pg Normal 25.2-33.5 [facility] Comment on above: Performed By: #### C DP, LIVP, CREG, SED #### [address] [place], [place] [address] Production Line Mechanic: Chip Andino MD MCHC (RBC) [Mass/Vol] 31.8 g/dL Normal 28.4-34.8 [facility] Comment on above: Performed By: #### C DP, LIVP, CREG, SED #### [address] [place], [facility]83 Production Line Mechanic: Chip Andino MD MCV (RBC) [Entitic vol] 85.7 fL Normal 82.6-102.9 [facility] Comment on above: Performed By: #### C DP, LIVP, CREG, SED #### [facility] [address] [place], [place] [id number] Production Line Mechanic: Chip Andino MD NRBC Automated 0.0 per 100 WBC Normal 0.0 [facility] Comment on above: Performed By: #### C DP, LIVP, CREG, SED #### [facility] [address] [place], [facility]83 Production Line Mechanic: Chip Andino MD Platelet mean volume (Bld) [Entitic vol] 10.3 fL Normal 8.1-13.5 [facility] Comment on above: Performed By: #### C DP, LIVP, CREG, SED #### [address] [place], [facility]83 Production Line Mechanic: Chip Andino MD Platelets (Bld) [#/Vol] 335 10*3/uL Normal 138-453 [facility] Comment on above: Performed By: #### C DP, LIVP, CREG, SED #### [address] [place], [place] [id number] Production Line Mechanic: Chip Andino MD RBC (Bld) [#/Vol] 4.19 10*6/uL Normal 3.95-5.11 [facility] Comment on above: Performed By: #### C DP, LIVP, CREG, SED #### [address] [place], [facility]83 Production Line Mechanic: Chip Andino MD WBC (Bld) [#/Vol] 10.5 10*3/uL Normal 3.5-11.3 [facility] Comment on above: Performed By: #### C DP, LIVP, CREG, SED #### [address] [place], [place] [id number] Production Line Mechanic: Chip Andino MD Creatinineon 06-11-2022 Creatinine [Mass/Vol] 1.82 mg/dL High 0.50 - 0.90 mg/dL [facility] GFR/1.73 sq M.predicted MDRD (S/P/Bld) [Vol rate/Area] 32 mL/min/{1.73_m2} Low - PINF [facility] Comment on above: Effective Apr 30, [...] Interpretation and review of laboratory results Abnormal [facility] Creatinine w/GFRon Creatinine [Mass/Vol] 1.82 mg/dL High 0.50-0.90 [facility] Comment on above: Performed By: #### C MATEO CARTER CREG, SED #### [facility] [address] [place] [address] Production Line Mechanic: Chip Andino MD GFR/1.73 sq M.predicted among non-blacks MDRD (S/P/Bld) [Vol rate/Area] 32 mL/min/{1.73_m2} Low >60 [facility] Comment on above: Result Comment: Effective Apr [...] renal tubular secretion. Performed By: #### C MATEO CARTER CREG, SED #### [facility] [address] [place] [address] Production Line Mechanic: Chip Andino MD Hepatic Function Panelon Albumin [Mass/Vol] 4.3 g/dL 3.5 - 5.2 g/dL [facility] Albumin/Globulin [Mass ratio] 1.5 {ratio} 1.0 - 2.5 [facility] ALP (Bld) [Catalytic activity/Vol] 91 U/L 35 - 104 U/L [facility] ALT [Catalytic activity/Vol] 9 U/L 5 - 33 U/L [facility] AST [Catalytic activity/Vol] 18 U/L NINF - 32 U/L [facility] Bilirubin [Mass/Vol] mg/dL Low 0.3 - 1 .2 mg/dL [facility] Bilirubin, Indirect Can not be calculated 0.00 - 1.00 mg/dL [facility] Bilirubin.indirect [Mass/Vol] mg/dL NINF - 0.31 mg/dL [facility] Interpretation and review of laboratory results Abnormal [facility] Protein [Mass/Vol] 7.2 g/dL 6.4 - 8.3 g/dL [facility] Liver Profileon 06-11-2022 Bilirubin [Mass/Vol] mg/dL Low 0.3-1.2 [facility] Comment on above: Performed By: #### C DP, LIVP, CREG, SED #### [address] [place] [address] Production Line Mechanic: Chip Andino MD Bilirubin, Indirect Can not be calculated Normal 0.00- 1.00 [facility] Comment on above: Performed By: #### C DP, LIVP, CREG, SED #### [address] [place] [address] Production Line Mechanic: Chip Andino MD Albumin [Mass/Vol] 4.3 g/dL Normal 3.5-5.2 [facility] Comment on above: Performed By: #### C DP, LIVP, CREG, SED #### [address] [place] [address] Production Line Mechanic: Chip Andino MD Albumin/Glob Ratio 1.5 Normal 1.0-2.5 [facility] Comment on above: Performed By: #### C DP, LIVP, CREG, SED #### [address] [place], [place] [id number] Production Line Mechanic: Chip Andino MD Alkaline Phos 91 U/L Normal 35-104 [facility] Comment on above: Performed By: #### C DP, LIVP, CREG, SED #### [address] [place], [facility]83 Production Line Mechanic: Chip Andino MD ALT [Catalytic activity/Vol] 9 U/L Normal 5-33 [facility] Comment on above: Performed By: #### C DP, LIVP, CREG, SED #### [address] [place], [facility]83 Production Line Mechanic: Chip Andino MD AST [Catalytic activity/Vol] 18 U/L Normal <32 [facility] Comment on above: Performed By: #### C DP, LIVP, CREG, SED #### [address] [place], [facility]83 Production Line Mechanic: Chip Andino MD Bilirubin.indirect [Mass/Vol] mg/dL Normal <0.31 [facility] Comment on above: Performed By: #### C DP, LIVP, CREG, SED #### [address] [place], [facility]83 Production Line Mechanic: Chip Andino MD Protein [Mass/Vol] 7.2 g/dL Normal 6.4-8.3 [facility] Comment on above: Performed By: #### C DP, LIVP, CREG, SED #### [address] [place], [place] [id number] Production Line Mechanic: Chip Andino MD Sedimentation Rateon 11-14-2 022 Sedimentation Rate 15 mm/Hr Normal 0-30 [facility] Comment on above: Performed By: #### C DP, LIVP, CREG, SED #### [facility] [address] [place] [address] Production Line Mechanic: Chip Andino MD Sed Rate 15 [facility] XR FOOT RIGHT (MIN 3 VIEWS)o n [...] Martha Chi MD 05/20/22 Final result Normal [facility] CBC with Auto Differentialon 04-11-2022 Absolute Eos # 0.49 High [facility] Absolute Immature Granulocyte 0.04 [facility] Absolute Lymph # 2.85 [facility] Absolute [place] # 0.95 [facility] Basophils (Bld) [#/Vol] 0.07 10*3/uL [facility] Basophils/100 WBC (Bld) 1 % 0 - 2 % [facility] Eosinophils/100 WBC (Bld) 5 % High 1 - 4 % [facility] Hematocrit (Bld) [Volume fraction] 38.5 % 36.3 - 47.1 % [facility] Hemoglobin (Bld) [Mass/Vol] 12.4 g/dL 11.9 - 15.1 g/dL [facility] Immature granulocytes/100 WBC (Bld) 0 % 0 [facility] Interpretation and review of laboratory results Abnormal [facility] Lymphocytes/100 WBC (Bld) 26 % 24 - 43 % [facility] MCH (RBC) [Entitic mass] 27.6 pg 25.2 - 33.5 pg [facility] MCHC (RBC) [Mass/Vol] 32.2 g/dL 28.4 - 34.8 g/dL [facility] MCV (RBC) [Entitic vol] 85.7 fL 82.6 - 102.9 fL [facility] Monocytes/100 WBC (Bld) 9 % 3 - 12 % [facility] NRBC Automated 0.0 0.0 per 100 WBC [facility] Platelet distribution width (Bld) [Ratio] 12.3 % 11.8 - 14.4 % [facility] Platelet mean volume (Bld) [Entitic vol] 11.1 fL 8.1 - 13.5 fL [facility] Platelets (Bld) [#/Vol] 297 10*3/uL [facility] RBC (Bld) [#/Vol] 4.49 10*6/uL 3.95 - 5.1 1 m/uL [facility] Segmented neutrophils/100 WBC (Bld) 59 % 36 - 65 % [facility] Segs Absolute 6.41 [facility] WBC (Bld) [#/Vol] 10.8 10*3/uL [facility] with Diffon 04-11-2022 Abs. Basophil 0.07 k/uL Normal 0.00-0.20 [facility] Comment on above: Performed By: #### C DP, SED, CREG, LIVP #### [facility] [address] [place] [address] Production Line Mechanic: Chip Andino MD Abs.Imm.Granulocyte 0.04 k/uL Normal 0.00-0.30 [facility] Comment on above: Performed By: #### C DP, SED, CREG, LIVP #### [facility] [address] [place], [place] [address] Production Line Mechanic: Chip Andino MD Abs.Neutrophil (Seg) 6.41 k/uL Normal 1.50-8.10 [facility] Comment on above: Performed By: #### C DP, SED, CREG, LIVP #### [address] [place], [place] [address] Production Line Mechanic: Chip Andino MD Basophils/100 WBC (Bld) 1 % Normal 0-2 [facility] Comment on above: Performed By: #### C DP, SED, CREG, LIVP #### [address] [place] [id number] Production Line Mechanic: Chip Andino MD Eosinophils (Bld) [#/Vol] 0.49 10*3/uL High 0.00-0.44 [facility] Comment on above: Performed By: #### C DP, SED, CREG, LIVP #### [address] [place], [place] [address] Production Line Mechanic: Chip Andino MD Eosinophils/100 WBC (Bld) 5 % High 1-4 [facility] Comment on above: Performed By: #### C DP, SED, CREG, LIVP #### [address] [place], [facility]83 Production Line Mechanic: Chip Andino MD Erythrocyte distribution width (RBC) [Ratio] 12.3 % Normal 11.8-14.4 [facility] Comment on above: Performed By: #### C DP, SED, CREG, LIVP #### [address] [place], [facility]83 Production Line Mechanic: Chip Andino MD Hematocrit (Bld) [Volume fraction] 38.5 % Normal 36.3-47.1 [facility] Comment on above: Performed By: #### C DP, SED, CREG, LIVP #### [address] [place], [facility]83 Production Line Mechanic: Chip Andino MD Hemoglobin (Bld) [Mass/Vol] 12.4 g/dL Normal 11.9-15.1 [facility] Comment on above: Performed By: #### C DP, SED, CREG, LIVP #### [address] [place], [facility]83 Production Line Mechanic: Chip Andino MD Immature granulocytes/100 WBC (Bld) 0 % Normal 0 [facility] Comment on above: Performed By: #### C DP, SED, CREG, LIVP #### [address] [place], [facility]83 Production Line Mechanic: Chip Andino MD Lymphocytes (Bld) [#/Vol] 2.85 10*3/uL Normal 1.10-3.70 [facility] Comment on above: Performed By: #### C DP, SED, CREG, LIVP #### [address] [place], [place] [address] Production Line Mechanic: Chip Andino MD Lymphocytes/100 WBC (Bld) 26 % Normal 24-43 [facility] Comment on above: Performed By: #### C DP, SED, CREG, LIVP #### [address] [place], [facility]83 Production Line Mechanic: Chip Andino MD MCH (RBC) [Entitic mass] 27.6 pg Normal 25.2-33.5 [facility] Comment on above: Performed By: #### C DP, SED, CREG, LIVP #### [address] [place] [address] Production Line Mechanic: Chip Andino MD MCHC (RBC) [Mass/Vol] 32.2 g/dL Normal 28.4-34.8 [facility] Comment on above: Performed By: #### C DP, SED, CREG, LIVP #### [facility] [address] [place], [place] [address] Production Line Mechanic: Chip Andino MD MCV (RBC) [Entitic vol] 85.7 fL Normal 82.6-102.9 [facility] Comment on above: Performed By: #### C DP, SED, CREG, LIVP #### [address] [place], [place] [address] Production Line Mechanic: Chip Andino MD Monocytes (Bld) [#/Vol] 0.95 10*3/uL Normal 0.10-1.20 [facility] Comment on above: Performed By: #### C DP, SED, CREG, LIVP #### [address] [place], [place] [address] Production Line Mechanic: Chip Andino MD Monocytes/100 WBC (Bld) 9 % Normal 3-12 [facility] Comment on above: Performed By: #### C DP, SED, CREG, LIVP #### [address] [place], [place] [address] Production Line Mechanic: Chip Andino MD Neutrophil (Seg) 59 % Normal 36-65 [facility] Comment on above: Performed By: #### C DP, SED, CREG, LIVP #### [address] [place], [place] [address] Production Line Mechanic: Chip Andino MD NRBC Automated 0.0 per 100 WBC Normal 0.0 [facility] Comment on above: Performed By: #### C DP, SED, CREG, LIVP #### [address] [place], [facility]83 Production Line Mechanic: Chip Andino MD Platelet mean volume (Bld) [Entitic vol] 11.1 fL Normal 8.1-13.5 [facility] Comment on above: Performed By: #### C DP, SED, CREG, LIVP #### [facility] [address] [place], [place] [phone] Production Line Mechanic: Chip Andino MD Platelets (Bld) [#/Vol] 297 10*3/uL Normal 138-453 [facility] Comment on above: Performed By: #### C DP, SED, CREG, LIVP #### [facility] [address] [place], [facility]83 Production Line Mechanic: Chip Andino MD RBC (Bld) [#/Vol] 4.49 10*6/uL Normal 3.95-5.11 [facility] Comment on above: Performed By: #### C DP, SED, CREG, LIVP #### [facility] [address] [place], [place] [phone] Production Line Mechanic: Chip Andino MD WBC (Bld) [#/Vol] 10.8 10*3/uL Normal 3.5-11.3 [facility] Comment on above: Performed By: #### C DP, SED, CREG, LIVP #### [facility] [address] [place], [facility]83 Production Line Mechanic: Chip Andino MD Creatinineon 04-11-2022 Creatinine [Mass/Vol] 2.38 mg/dL High 0.5 - 0.9 mg/dL [facility] GFR 25 mL/min Low 60 - PI NF mL/min [facility] GFR Non- 21 mL/min Low 60 - PINF mL/min [facility] Interpretation and review of laboratory results Abnormal [facility] Creatinine w/GFRon 2 (cont.) Normal [facility] Comment on above: Result Comment: Aver age GFR for 50-59 years old: 93 mL/min/1.73sq m Chronic Kidney Disease: <60 mL/min/1.73sq m Kidney failure: <15 mL/min/1.73sq m eGFR calculated using average adult body mass. Additional eGFR calculator available at: http://www.[employer]/multiple_crcl_2012.htm Performed By: #### C DP, SED, CREG, LIVP #### [facility] [address] [place] [address] Production Line Mechanic: Chip Andino MD Creatinine [Mass/Vol] 2.38 mg/dL High 0.50-0.90 [facility] Comment on above: Performed By: #### C DP, SED, CREG, LIVP #### [facility] [address] [place], [place] [phone] Production Line Mechanic: Chip Andino MD GFR, Amer 25 mL/min Low >60 [facility] Comment on above: Performed By: #### C DP, SED, CREG, LIVP #### [address] [place] [address] Production Line Mechanic: Chip Andino MD GFR,non Amer 21 mL/min Low >60 [facility] Comment on above: Performed By: #### C DP, SED, CREG, LIVP #### [address] [place], [place] [phone] Production Line Mechanic: Chip Andino MD Staging: Normal [facility] Comment on above: Result Comment: Stag e 1: Some kidney damage normal GFR Stage 2: Mild kidney damage GFR 60-89 Stage 3: Moderate kidney damage GFR 30-59 Stage 4: Severe kidney damage GFR 15-29 Stage 5: Severe kidney damage GFR <15 ESRD - chronic treatment by dialysis or transplant Performed By: #### C DP, SED, CREG, LIVP #### [address] [place], [place] [id number] Production Line Mechanic: Chip Andino MD Hepatic Function Panelon Albumin [Mass/Vol] 4.5 g/dL 3.5 - 5.2 g/dL [facility] Albumin/Globulin [Mass ratio] 1.5 {ratio} 1 - 2.5 [facility] ALP (Bld) [Catalytic activity/Vol] 106 U/L High 35 - 104 U/L [facility] ALT [Catalytic activity/Vol] 16 U/L 5 - 33 U/L [facility] AST [Catalytic activity/Vol] 18 U/L NINF - 32 U/L [facility] Bilirubin [Mass/Vol] 0.2 mg/dL Low 0.3 - 1 .2 mg/dL [facility] Bilirubin, Indirect Can not be calculated 0 - 1 mg/dL [facility] Bilirubin.indirect [Mass/Vol] mg/dL NINF - 0.31 mg/dL [facility] Free PSA/Total PSA [Mass fraction] 7.5 g/dL 6.4 - 8.3 g/dL [facility] Interpretation and review of laboratory results Abnormal [facility] Laboratory - Chemistry and C hemistry - challengeon 04-11-2022 GFR/1.73 sq M.predicted MDRD (S/P/Bld) [Vol rate/Area] [facility] Comment on above: Average GFR for 50-5 9 years old: 93 mL/min/1.73sq m Chronic Kidney Disease: <60 mL/min/1.73sq m Kidney failure: <15 mL/min/1.73sq m eGFR calculated using average adult body mass. Additional eGFR calculator available at: http://www.[employer]/multiple_crcl_2012.htm Stage 1: Some kidney damage normal GFR Stage 2: Mild kidney damage GFR 60-89 Stage 3: Moderate kidney damage GFR 30-59 Stage 4: Severe kidney damage GFR 15-29 Stage 5: Severe kidney damage GFR <15 ESRD - chronic treatment by dialysis or transplant Liver Profileon 04-11-2022 AST [Catalytic activity/Vol] 18 U/L Normal <32 [facility] Comment on above: Performed By: #### C DP, SED, CREG, LIVP #### [facility] [address] [place] [address] Production Line Mechanic: Chip Andino MD Albumin [Mass/Vol] 4.5 g/dL Normal 3.5-5.2 [facility] Comment on above: Performed By: #### C DP, SED, CREG, LIVP #### [address] [place], [place] [id number] Production Line Mechanic: Chip Andion MD Albumin/Glob Ratio 1.5 Normal 1.0-2.5 [facility] Comment on above: Performed By: #### C DP, SED, CREG, LIVP #### [address] [place], [place] [phone] Production Line Mechanic: Chip Andino MD Alkaline Phos 106 U/L High 35-104 [facility] Comment on above: Performed By: #### C DP, SED, CREG, LIVP #### [address] [place], [place] [phone] Production Line Mechanic: Chip Andino MD ALT [Catalytic activity/Vol] 16 U/L Normal 5-33 [facility] Comment on above: Performed By: #### C DP, SED, CREG, LIVP #### [address] [place], [place] [phone] Production Line Mechanic: Chip Andino MD Bilirubin [Mass/Vol] 0.2 mg/dL Low 0.3-1.2 [facility] Comment on above: Performed By: #### C DP, SED, CREG, LIVP #### [address] [place], [place] [phone] Production Line Mechanic: Chip Andino MD Bilirubin, Indirect Can not be calculated Normal 0.00- 1.00 [facility] Comment on above: Performed By: #### C DP, SED, CREG, LIVP #### [address] [place] [address] Production Line Mechanic: Chip Andino MD Bilirubin.indirect [Mass/Vol] mg/dL Normal <0.31 [facility] Comment on above: Performed By: #### C DP, SED, CREG, LIVP #### [facility] [address] [place] [address] Production Line Mechanic: Chip Andino MD Protein [Mass/Vol] 7.5 g/dL Normal 6.4-8.3 [facility] Comment on above: Performed By: #### C DP, SED, CREG, LIVP #### [facility] [address] [place] [phone] Production Line Mechanic: Chip Andino MD Sedimentation Rateon 022 Sedimentation Rate 12 mm/Hr Normal 0-30 [facility] Comment on above: Performed By: #### C DP, SED, CREG, LIVP #### [facility] [address] [place] [address] [place] [address] Production Line Mechanic: Chip Andino MD Sed Rate 12 [facility] CBC with Auto Differentialon 02-15-2022 Absolute Eos # 0.17 [facility] Absolute Immature Granulocyte [facility] Absolute Lymph # 2.35 [facility] Absolute [place] # 0.82 [facility] Basophils (Bld) [#/Vol] 0.04 10*3/uL [facility] Basophils/100 WBC (Bld) 1 % 0 - 2 % B [facility] Eosinophils/100 WBC (Bld) 3 % 1 - 4 % [facility] Hematocrit (Bld) [Volume fraction] 36.8 % 36.3 - 47.1 % [facility] Hemoglobin (Bld) [Mass/Vol] 12.1 g/dL 11.9 - 15.1 g/dL [facility] Immature granulocytes/100 WBC (Bld) 0 % 0 [facility] Interpretation and review of laboratory results Abnormal [facility] Lymphocytes/100 WBC (Bld) 43 % 24 - 43 % [facility] MCH (RBC) [Entitic mass] 28.5 pg 25.2 - 33.5 pg [facility] MCHC (RBC) [Mass/Vol] 32.9 g/dL 28.4 - 34.8 g/dL [facility] MCV (RBC) [Entitic vol] 86.8 fL 82.6 - 102.9 fL [facility] Monocytes/100 WBC (Bld) 15 % High 3 - 12 % B ON [facility] NRBC Automated 0.0 0.0 per 100 WBC [facility] Platelet distribution width (Bld) [Ratio] 13.5 % 11.8 - 14.4 % [facility] Platelet mean volume (Bld) [Entitic vol] 10.0 fL 8.1 - 13.5 fL [facility] Platelets (Bld) [#/Vol] 304 10*3/uL [facility] RBC (Bld) [#/Vol] 4.24 10*6/uL 3.95 - 5.1 1 m/uL [facility] Segmented neutrophils/100 WBC (Bld) 38 % 36 - 65 % [facility] Segs Absolute 2.10 [facility] WBC (Bld) [#/Vol] 5.5 10*3/uL [facility] CBC with Diffon 02-15-2022 Abs. Basophil 0.04 k/uL Normal 0.00-0.20 [facility] Comment on above: Performed By: #### L IVP, CDP, SED, CREG ####[address] , [place] [address] Lab Director: Chip Andino MD Abs.Imm.Granulocyte <0.03 Normal 0.00-0.30 [facility] Comment on above: Performed By: #### L IVP, CDP, SED, CREG ####[address] , [place] [phone] lab Director: Chip Andino MD Abs.Neutrophil (Seg) 2.10 k/uL Normal 1.50-8.10 [facility] Comment on above: Performed By: #### L IVP, CDP, SED, CREG ####[address] , [place] [phone] Lab Director: Chip Andino MD Basophils/100 WBC (Bld) 1 % Normal 0-2 [facility] Comment on above: Performed By: #### L IVP, CDP, SED, CREG ####[address] , [facility]83 Lab Director: Chip Andino MD Eosinophils (Bld) [#/Vol] 0.17 10*3/uL Normal 0.00-0.44 [facility] Comment on above: Performed By: #### L IVP, CDP, SED, CREG ####[address] , [facility]83 Lab Director: Chip Andino MD Eosinophils/100 WBC (Bld) 3 % Normal 1-4 [facility] Comment on above: Performed By: #### L IVP, CDP, SED, CREG ####[address] , [facility]83 Lab Director: Chip Andino MD Erythrocyte distribution width (RBC) [Ratio] 13.5 % Normal 11.8-14.4 [facility] Comment on above: Performed By: #### L IVP, CDP, SED, CREG ####[address] , [facility]83 Lab Director: Chip Andino MD Hematocrit (Bld) [Volume fraction] 36.8 % Normal 36.3-47.1 [facility] Comment on above: Performed By: #### L IVP, CDP, SED, CREG ####[address] , [place] [phone] Lab Director: Chip Andino MD Hemoglobin (Bld) [Mass/Vol] 12.1 g/dL Normal 11.9-15.1 [facility] Comment on above: Performed By: #### L IVP, CDP, SED, CREG ####[address] , [facility]83 [facility] Director: Chip Andino MD Immature granulocytes/100 WBC (Bld) 0 % Normal 0 [facility] Comment on above: Performed By: #### L IVP, CDP, SED, CREG ####[address] , [place] [address])[phone] Director: Chip Andino MD Lymphocytes (Bld) [#/Vol] 2.35 10*3/uL Normal 1.10-3.70 [facility] Comment on above: Performed By: #### L IVP, CDP, SED, CREG ####[address] , [facility]83 lab Director: Chip Andino MD Lymphocytes/100 WBC (Bld) 43 % Normal 24-43 [facility] Comment on above: Performed By: #### L IVP, CDP, SED, CREG ####[address] , [facility]83 lab Director: Chip Andino MD MCH (RBC) [Entitic mass] 28.5 pg Normal 25.2-33.5 [facility] Comment on above: Performed By: #### L IVP, CDP, SED, CREG ####[address] , [facility]83 lab Director: Chip Andino MD MCHC (RBC) [Mass/Vol] 32.9 g/dL Normal 28.4-34.8 [facility] Comment on above: Performed By: #### L IVP, CDP, SED, CREG ####[address] , [place] [id number] lab Director: Chip Andino MD MCV (RBC) [Entitic vol] 86.8 fL Normal 82.6-102.9 M [facility] Comment on above: Performed By: #### L IVP, CDP, SED, CREG ####[address] [place] [address] Lab Director: Chip Andino MD Monocytes (Bld) [#/Vol] 0.82 10*3/uL Normal 0.10-1.20 [facility] Comment on above: Performed By: #### L IVP, CDP, SED, CREG ####[address] , [facility]83 Lab Director: Chip Andino MD Monocytes/100 WBC (Bld) 15 % High 3-12 [facility] Comment on above: Performed By: #### L IVP, CDP, SED, CREG ####[address] , [facility]83 Lab Director: Chip Andino MD Neutrophil (Seg) 38 % Normal 36-65 [facility] Comment on above: Performed By: #### L IVP, CDP, SED, CREG ####[address] , [place] [id number] Lab Director: Chip Andino MD NRBC Automated 0.0 per 100 WBC Normal 0.0 [facility] Comment on above: Performed By: #### L IVP, CDP, SED, CREG ####[address] , [facility]83[facility])[phone] Director: Chip Andino MD Platelet mean volume (Bld) [Entitic vol] 10.0 fL Normal 8.1-13.5 [facility] Comment on above: Performed By: #### L IVP, CDP, SED, CREG ####[address] , [place] [phone] Lab Director: Chip Andino MD Platelets (Bld) [#/Vol] 304 10*3/uL Normal 138-453 [facility] Comment on above: Performed By: #### L IVP, CDP, SED, CREG ####[facility] [place] [address] lab Director: Chip Andino MD RBC (Bld) [#/Vol] 4.24 10*6/uL Normal 3.95-5.11 [facility] Comment on above: Performed By: #### L IVP, CDP, SED, CREG ####[address] [place] [address] lab Director: Chip Andino MD WBC (Bld) [#/Vol] 5.5 10*3/uL Normal 3.5-11.3 [facility] Comment on above: Performed By: #### L IVP, CDP, SED, CREG ####[address] [place] [address] lab Director: Chip Andino MD Creatinineon 02-15-2022 Creatinine [Mass/Vol] 1.2 mg/dL High 0.5 - 0.9 mg/dL [facility] GFR 56 mL/min Low 60 - PI NF mL/min [facility] GFR Non- 46 mL/min Low 60 - PINF mL/min [facility] Creatinine w/GFRon 2 (cont.) Normal [facility] Comment on above: Result Comment: Aver age GFR for 50-59 years old: 93 mL/min/1.73sq m Chronic Kidney Disease: <60 mL/min/1.73sq m Kidney failure: <15 mL/min/1.73sq m eGFR calculated using average adult body mass. Additional eGFR calculator available at: http://www.[employer]/multiple_crcl_2012.htm Performed By: #### L IVP, CDP, SED, CREG ####[address] [place] [address] lab Director: Chip Andino MD Creatinine [Mass/Vol] 1.20 mg/dL High 0.50-0.90 [facility] Comment on above: Performed By: #### L IVP, CDP, SED, CREG ####[facility] [place] , [place] [phone] lab Director: Chip Andino MD GFR, Amer 56 mL/min Low >60 [facility] Comment on above: Performed By: #### L IVP, CDP, SED, CREG ####[facility] [place] , [place] [id number] lab Director: Chip Andino MD GFR,non Amer 46 mL/min Low >60 [facility] Comment on above: Performed By: #### L IVP, CDP, SED, CREG ####[address] , [place] [id number] [facility] Director: Chip Andino MD Staging: Normal [facility] Comment on above: Result Comment: Stag e 1: Some kidney damage normal GFR Stage 2: Mild kidney damage GFR 60-89 Stage 3: Moderate kidney damage GFR 30-59 Stage 4: Severe kidney damage GFR 15-29 Stage 5: Severe kidney damage GFR <15 ESRD - chronic treatment by dialysis or transplant Performed By: #### L IVP, CDP, SED, CREG ####[address] , [place] [phone] lab Director: Chip Andino MD Hepatic Function Panelon Albumin [Mass/Vol] 4.5 g/dL 3.5 - 5.2 g/dL [facility] Albumin/Globulin [Mass ratio] 1.5 {ratio} 1 - 2.5 [facility] ALP (Bld) [Catalytic activity/Vol] 96 U/L 35 - 104 U/L [facility] ALT [Catalytic activity/Vol] 15 U/L 5 - 33 U/L [facility] AST [Catalytic activity/Vol] 25 U/L NINF - 32 U/L [facility] Bilirubin [Mass/Vol] 0.19 mg/dL Low 0.3 - 1 .2 mg/dL [facility] Bilirubin, Indirect Can not be calculated 0 - 1 mg/dL [facility] Bilirubin.indirect [Mass/Vol] mg/dL NINF - 0.31 mg/dL [facility] Free PSA/Total PSA [Mass fraction] 7.6 g/dL 6.4 - 8.3 g/dL [facility] Laboratory - Chemistry and C hemistry - challengeon 02-15-2022 GFR/1.73 sq M.predicted MDRD (S/P/Bld) [Vol rate/Area] [facility] Comment on above: Average GFR for 50-5 9 years old: 93 mL/min/1.73sq m Chronic Kidney Disease: <60 mL/min/1.73sq m Kidney failure: <15 mL/min/1.73sq m eGFR calculated using average adult body mass. Additional eGFR calculator available at: http://www.[employer]/multiple_crcl_2011.htm Stage 1: Some kidney damage normal GFR Stage 2: Mild kidney damage GFR 60-89 Stage 3: Moderate kidney damage GFR 30-59 Stage 4: Severe kidney damage GFR 15-29 Stage 5: Severe kidney damage GFR <15 ESRD - chronic treatment by dialysis or transplant Liver Profileon 02-15-2022 Albumin [Mass/Vol] 4.5 g/dL Normal 3.5-5.2 [facility] Comment on above: Performed By: #### L IVP, CDP, SED, CREG ####[address] [place] [address] lab Director: Chip Andino MD Albumin/Glob Ratio 1.5 Normal 1.0-2.5 [facility] Comment on above: Performed By: #### L IVP, CDP, SED, CREG ####[address] [place] [address] lab Director: Chip Andino MD Alkaline Phos 96 U/L Normal 35-104 [facility] Comment on above: Performed By: #### L IVP, CDP, SED, CREG ####[address] , [place] [phone] Lab Director: Chip Andino MD ALT [Catalytic activity/Vol] 15 U/L Normal 5-33 [facility] Comment on above: Performed By: #### L IVP, CDP, SED, CREG ####[address] , [place] [address] Lab Director: Chip Andino MD AST [Catalytic activity/Vol] 25 U/L Normal <32 [facility] Comment on above: Performed By: #### L IVP, CDP, SED, CREG ####[address] , [place] [phone] lab Director: Chip Andino MD Bilirubin [Mass/Vol] 0.19 mg/dL Low 0.3-1.2 [facility] Comment on above: Performed By: #### L IVP, CDP, SED, CREG ####[address] , [place] 112[address]83 Lab Director: Chip Andino MD Bilirubin, Indirect Can not be calculated Normal 0.00- 1.00 [facility] Comment on above: Performed By: #### L IVP, CDP, SED, CREG ####[address] , [place] [phone] Lab Director: Chip Andino MD Bilirubin.indirect [Mass/Vol] mg/dL Normal <0.31 [facility] Comment on above: Performed By: #### L IVP, CDP, SED, CREG ####[address] , [place] 114[address]183 Lab Director: Chip Andino MD Protein [Mass/Vol] 7.6 g/dL Normal 6.4-8.3 [facility] Comment on above: Performed By: #### L IVP, CDP, SED, CREG ####[facility] [place] [address] lab Director: Chip Andino MD No Panel Informationon 02-15 Interpretation and review of laboratory results Abnormal [facility] Sedimentation Rateon 022 Sedimentation Rate 23 mm/Hr Normal 0-30 [facility] Comment on above: Performed By: #### L IVP, CDP, SED, CREG ####[facility] [place] [address] lab Director: Chip Andino MD Sed Rate 23 [facility] Patient Educationon 02-10-20 22 Patient Education Obstetrics [...] Take ove (more content not included)... Normal [facility] Reminderson 02-09-2022 Reminders - From: Lynda Boland To: SANDOR - Millie Joe; Sent: 02/09/2022 10:23:42 EDT Show up: 12/27/2022 10:23:00 EDT Subject: Recall for Renal US Due Date/Time: 01/26/2023 10:23:00 EDT Reminder/Recall Pleas call and schedule Patient for her SUSAN prior to 02/04/23 follow up. Normal [facility] Urology Office/Clinic Noteon 02-09-2022 Urology Office/Clinic Note [...] and history for this patient from Dr. Joe. I have reviewed and verified the staff [...] JUNIOR JIMENEZ, REYES Connor In [address] [place] [id number] Additional Instructions: w/ renal US Patient Education Overactive Bladder, Adult I, Kayli Garrido, personally scribed for Dr. Joe on 02/09/2022 10:16:37. . Documentation recorded by the scribe, Kayli Garrido, accurately reflects the services(s) I performed and decisions made by me. Authenticated by Dr. Joe on 02/09/2022 10:18:10. Problem List/Past Medical History [...] Comments SARS-CoV-2 (COVID-19) Ad26 vaccine 11/15/2020 Recorded [facility] Results Ambulatory Point of Care Results Bilirubin Urine Dipstick: Negative (02/09/22 09:55:00) Blood Urine Dipstick: Negative (02/09/22 09:55:00) Glucose Urine Dipstick: Negative (02/09/22 09:55:00) Ketones Urine Dipstick: Negative (02/09/22 09:55:00) Leukocytes Urine Dipstick: (more content not included)... Normal [facility] Comment on above: Result Comment: Elec tronically Signed By: Frank JOE MD\.br\Date and Time Signed: 02/09/22 10:18 EDT\.br\Electronically Co-Signed By: Kayli Garrido.br\Date and Time Co-Signed: 02/09/22 10:16 EDT C3 Complementon 11-27-2021 Complement C3 132 mg/dL 90 - 180 mg/dL gdgt C4 Complementon 11-27-2021 Complement C4 34 mg/dL 10 - 40 mg/dL gdgt CT CHEST HIGH RESOLUTIONon 0 11-27-2021 Radiology Study observation (narrative) Kaitlin perales Work Phone: 1. Mild basilar honeycombing and mild associated bronchiectasis, consistent with UIP pattern. 2. Main pulmonary artery enlargement raise the possibility of pulmonary hypertension. 3. Calcified atheromatous plaque and coronary calcification. MHPN RIS CONSOLIDATED EXAMINATION: CT IMAGES OF THE CHEST [...] favoring cysts. Soft Tissues/Bones: No significant findings. PN RIS CONSOLIDATED Obinna Travis MD - 11/27/2021 EXAMINATION: [...] 3. Calcified atheromatous plaque and coronary calcification. gdgt Work Phone: CT CHEST HIGH RESOLUTIONOrde red By: Obinna Travis on 11-27-2021 gdgt Work Phone: No Panel Informationon 11-27 gdgt Urinalysis with Microscopico n 11-27-2021 - gdgt Bacteria, UA 2+ Abnormal None gdgt Bilirubin Urine Negative NEGATIVE [employer] [facility] Color, UA Yellow Yellow gdgt Epithelial Cells UA 0 TO 2 gdgt Glucose, Ur Negative NEGATIVE gdgt Interpretation and review of laboratory results Abnormal [facility] Ketones Ql (U) Negative NEGATIVE [facility] Leukocyte esterase Test strip Ql (U) SMALL Abnormal NEGATIVE [facility] Nitrite, Urine Negative NEGATIVE [facility] pH, UA 5.5 [facility] Protein, UA Negative NEGATIVE [facility] RBC, UA None [facility] Specific [place], UA 1.020 [facility] Turbidity UA Clear Clear [facility] Urine Hgb Negative NEGATIVE [facility] Urobilinogen, Urine Normal Normal [facility] WBC, UA 5 TO 10 [facility] CBC with Auto Differentialon 10-03-2021 Absolute Eos # 0.39 [facility] Absolute Immature Granulocyte 0.04 [facility] Absolute Lymph # 2.70 [facility] alth Absolute [place] # 0.91 [facility] lth Basophils (Bld) [#/Vol] 0.08 10*3/uL [facility] Basophils/100 WBC (Bld) 1 % 0 - 2 % [facility] Eosinophils/100 WBC (Bld) 4 % 1 - 4 % [facility] Hematocrit (Bld) [Volume fraction] 35.9 % Low 36.3 - 47.1 % [facility] Hemoglobin.gastrointest inal spec 1 Ql (Stl) 11.4 g/dL Low 11.9 - 15.1 g/dL [facility] Immature granulocytes/100 WBC (Bld) 0 % 0 [facility] Interpretation and review of laboratory results Abnormal [facility] Lymphocytes/100 WBC (Bld) 27 % 24 - 43 % [facility] MCH (RBC) [Entitic mass] 28.2 pg 25.2 - 33.5 pg [facility] MCHC (RBC) [Mass/Vol] 31.8 g/dL 28.4 - 34.8 g/dL [facility] MCV (RBC) [Entitic vol] 88.9 fL 82.6 - 102.9 fL [facility] Monocytes/100 WBC (Bld) 9 % 3 - 12 % [facility] NRBC Automated 0.0 0.0 per 100 WBC [facility] Platelet distribution width (Bld) [Ratio] 14.7 % High 11.8 - 14.4 % [facility] Platelet mean volume (Bld) [Entitic vol] 10.5 fL 8.1 - 13.5 fL [facility] Platelets (Bld) [#/Vol] 327 10*3/uL [facility] RBC (Bld) [#/Vol] 4.04 10*6/uL 3.95 - 5.1 1 m/uL [facility] Segmented neutrophils/100 WBC (Bld) 59 % 36 - 65 % [facility] Segs Absolute 6.03 [facility] [#/Vol] 10.2 10*3/uL [facility] Creatinineon 10-03-2021 Creatinine [Mass/Vol] 1.24 mg/dL High 0.50 - 0.90 mg/dL [facility] GFR 54 mL/min Low >60 [facility] GFR Non- 45 mL/min Low >60 [facility] Interpretation and review of laboratory results Abnormal [facility] Hepatic Function Panelon Albumin [Mass/Vol] 4.2 g/dL 3.5 - 5.2 g/dL [facility] Albumin/Globulin [Mass ratio] 1.4 {ratio} [facility] ALP (Bld) [Catalytic activity/Vol] 113 U/L High 35 - 104 U/L [facility] ALT [Catalytic activity/Vol] 11 U/L 5 - 33 U/L [facility] AST [Catalytic activity/Vol] 22 U/L <32 [facility] Bilirubin [Mass/Vol] mg/dL Low 0.3 - 1 .2 mg/dL [facility] Bilirubin, Indirect Can not be calculated 0.00 - 1.00 mg/dL [facility] Bilirubin.indirect [Mass/Vol] mg/dL <0.31 mg/dL [facility] Free PSA/Total PSA [Mass fraction] 7.1 g/dL 6.4 - 8.3 g/dL [facility] Interpretation and review of laboratory results Abnormal [facility] Laboratory - Chemistry and C hemistry - challengeon 10-03-2021 GFR/1.73 sq M.predicted MDRD (S/P/Bld) [Vol rate/Area] [facility] Comment on above: Average GFR for 50-5 9 years old: 93 mL/min/1.73sq m Chronic Kidney Disease: <60 mL/min/1.73sq m Kidney failure: <15 mL/min/1.73sq m eGFR calculated using average adult body mass. Additional eGFR calculator available at: http://www.[employer]/multiple_crcl_2011.htm Stage 1: Some kidney damage normal GFR Stage 2: Mild kidney damage GFR 60-89 Stage 3: Moderate kidney damage GFR 30-59 Stage 4: Severe kidney damage GFR 15-29 Stage 5: Severe kidney damage GFR <15 ESRD - chronic treatment by dialysis or transplant Sedimentation Rateon 022 Sed Rate 18 mm 0 - 30 mm [employer] CBC Auto DifferentialOrdered By: Vinicius Bullock on 05-30-2021 Absolute Eos # 0.17 [employer] [facility] Work Phone: Absolute Immature Granulocyte 0.05 gdgt Work Phone: Absolute Lymph # 2.36 [employer] alth Work Phone: Absolute [place] # 0.75 [employer] Work Phone: Basophils (Bld) [#/Vol] 0.06 10*3/uL gdgt Work Phone: Basophils/100 WBC (Bld) 1 % 0 - 2 % [facility] Work Phone: Differential Type NOT REPORTED [employer] Phone: Eosinophils/100 WBC (Bld) 2 % 1 - 4 % [employer] Phone: Hematocrit (Bld) [Volume fraction] 37.1 % 36.3 - 47.1 % [employer] Phone: Hemoglobin.gastrointest inal spec 1 Ql (Stl) 12.0 g/dL 11.9 - 15.1 g/dL [employer] Phone: Immature granulocytes/100 WBC (Bld) 1 % High 0 [employer] Phone: Interpretation and review of laboratory results Abnormal [employer] Phone: Lymphocytes/100 WBC (Bld) 22 % Low 24 - 43 % [employer] Phone: MCH (RBC) [Entitic mass] 27.8 pg 25.2 - 33.5 pg [employer] Phone: MCHC (RBC) [Mass/Vol] 32.3 g/dL 28.4 - 34.8 g/dL [employer] Phone: MCV (RBC) [Entitic vol] 86.1 fL 82.6 - 102.9 fL [employer] Phone: Monocytes/100 WBC (Bld) 7 % 3 - 12 % [facility] Work Phone: NRBC Automated 0.0 0.0 per 100 WBC [employer] Phone: Platelet distribution width (Bld) [Ratio] 13.9 % 11.8 - 14.4 % [employer] Phone: Platelet Estimate NOT REPORTED [employer] Phone: Platelet mean volume (Bld) [Entitic vol] 10.3 fL 8.1 - 13.5 fL [employer] Phone: Platelets (Bld) [#/Vol] 316 10*3/uL [employer] Phone: RBC (Bld) [#/Vol] 4.31 10*6/uL 3.95 - 5.1 1 m/uL [employer] Phone: RBC (Bld) [#/Vol] NOT REPORTED [employer] Phone: Segmented neutrophils/100 WBC (Bld) 67 % High 36 - 65 % [employer] Phone: Segs Absolute 7.58 [employer] Work Phone: WBC (Bld) [#/Vol] 11.0 10*3/uL [employer] Phone: WBC (Bld) [#/Vol] NOT REPORTED [employer] Phone: [employer] Phone: Creatinine, SerumOrdered By: Vinicius Bullock on 05-30-2021 Creatinine [Mass/Vol] 1.22 mg/dL High 0.50 - 0.90 mg/dL [employer] Phone: GFR 55 mL/min Low >60 [employer] Phone: GFR Non- 45 mL/min Low >60 [employer] Phone: Interpretation and review of laboratory results Abnormal [employer] Phone: Flexion Phone: Hepatic Function PanelOrdere d By: Vinicius Lebronynes on 05-30-2021 Albumin [Mass/Vol] 4.4 g/dL 3.5 - 5.2 g/dL Flexion Phone: Albumin/Globulin [Mass ratio] 1.4 {ratio} Flexion Phone: ALP (Bld) [Catalytic activity/Vol] 98 U/L 35 - 104 U/L Flexion Phone: ALT [Catalytic activity/Vol] 15 U/L 5 - 33 U/L Flexion Phone: AST [Catalytic activity/Vol] 24 U/L <32 Flexion Phone: Bilirubin [Mass/Vol] mg/dL Low 0.3 - 1 .2 mg/dL Flexion Phone: Bilirubin, Indirect CANNOT BE CALCULATED 0.00 - 1.00 mg/dL Flexion Phone: Bilirubin.indirect [Mass/Vol] mg/dL <0.31 mg/dL Flexion Phone: Free PSA/Total PSA [Mass fraction] 7.5 g/dL 6.4 - 8.3 g/dL Flexion Phone: Globulin NOT REPORTED 1.5 - 3.8 g/dL Flexion Phone: Interpretation and review of laboratory results Abnormal gdgt Work Phone: [facility] Work Phone: Laboratory - Chemistry and C hemistry - challengeOrdered By: Vinicius Bullock on 05-30-2021 GFR/1.73 sq M.predicted MDRD (S/P/Bld) [Vol rate/Area] [facility] Work Phone: Comment on above: Average GFR for 50-5 9 years old: 93 mL/min/1.73sq m Chronic Kidney Disease: <60 mL/min/1.73sq m Kidney failure: <15 mL/min/1.73sq m eGFR calculated using average adult body mass. Additional eGFR calculator available at: http://www.[employer]/multiple_crcl_2012.htm Stage 1: Some kidney damage normal GFR Stage 2: Mild kidney damage GFR 60-89 Stage 3: Moderate kidney damage GFR 30-59 Stage 4: Severe kidney damage GFR 15-29 Stage 5: Severe kidney damage GFR <15 ESRD - chronic treatment by dialysis or transplant Sedimentation RateOrdered By : Vinicius Bullock on 05-30-2021 Interpretation and review of laboratory results Abnormal [facility] Work Phone: Sed Rate 25 mm High 0 - 20 mm [facility] Work Phone: [facility] Work Phone: CBC Auto DifferentialOrdered By: Vinicius Bullock on 04-04-2021 Absolute Eos # 0.09 [facility] Work Phone: Absolute Immature Granulocyte 0.04 [facility] Work Phone: Absolute Lymph # 2.65 [facility] Work Phone: Absolute [place] # 0.80 [facility] Work Phone: Basophils (Bld) [#/Vol] 0.08 10*3/uL [facility] Work Phone: Basophils/100 WBC (Bld) 1 % 0 - 2 % M [facility] Work Phone: Differential Type NOT REPORTED Flexion Phone: Eosinophils/100 WBC (Bld) 1 % 1 - 4 % Flexion Phone: Hematocrit (Bld) [Volume fraction] 40.0 % 36.3 - 47.1 % Flexion Phone: Hemoglobin.gastrointest inal spec 1 Ql (Stl) 12.9 g/dL 11.9 - 15.1 g/dL Flexion Phone: Immature granulocytes/100 WBC (Bld) 0 % 0 Flexion Phone: Lymphocytes/100 WBC (Bld) 25 % 24 - 43 % Flexion Phone: MCH (RBC) [Entitic mass] 27.4 pg 25.2 - 33.5 pg Flexion Phone: MCHC (RBC) [Mass/Vol] 32.3 g/dL 28.4 - 34.8 g/dL Flexion Phone: MCV (RBC) [Entitic vol] 84.9 fL 82.6 - 102.9 fL Flexion Phone: Monocytes/100 WBC (Bld) 8 % 3 - 12 % M [employer] Phone: NRBC Automated 0.0 0.0 per 100 WBC Flexion Phone: Platelet distribution width (Bld) [Ratio] 14.2 % 11.8 - 14.4 % Flexion Phone: Platelet Estimate NOT REPORTED Flexion Phone: Platelet mean volume (Bld) [Entitic vol] 10.1 fL 8.1 - 13.5 fL Flexion Phone: Platelets (Bld) [#/Vol] 314 10*3/uL Flexion Phone: RBC (Bld) [#/Vol] 4.71 10*6/uL 3.95 - 5.1 1 m/uL [employer]ion Phone: RBC (Bld) [#/Vol] NOT REPORTED gdgt Work Phone: Segmented neutrophils/100 WBC (Bld) 65 % 36 - 65 % gdgt Work Phone: Segs Absolute 6.90 [employer] Work Phone: WBC (Bld) [#/Vol] 10.6 10*3/uL gdgt Work Phone: WBC (Bld) [#/Vol] NOT REPORTED Flexion Phone: Flexion Phone: Creatinine, SerumOrdered By: Vinicius Bullock on 04-04-2021 Creatinine [Mass/Vol] 1.47 mg/dL High 0.50 - 0.90 mg/dL Flexion Phone: GFR 45 mL/min Low >60 [employer] Phone: GFR Non- 37 mL/min Low >60 Flexion Phone: Interpretation and review of laboratory results Abnormal Flexion Phone: Flexion Phone: Hepatic Function PanelOrdere d By: Vinicius Bullock on 04-04-2021 Albumin [Mass/Vol] 4.2 g/dL 3.5 - 5.2 g/dL Flexion Phone: Albumin/Globulin [Mass ratio] 1.4 {ratio} Flexion Phone: ALP (Bld) [Catalytic activity/Vol] 95 U/L 35 - 104 U/L Flexion Phone: ALT [Catalytic activity/Vol] 14 U/L 5 - 33 U/L Flexion Phone: AST [Catalytic activity/Vol] 24 U/L <32 Flexion Phone: Bilirubin [Mass/Vol] mg/dL Low 0.3 - 1 .2 mg/dL [employer]ion Phone: Bilirubin, Indirect CANNOT BE CALCULATED 0.00 - 1.00 mg/dL Flexion Phone: Bilirubin.indirect [Mass/Vol] mg/dL <0.31 mg/dL Flexion Phone: Free PSA/Total PSA [Mass fraction] 7.2 g/dL 6.4 - 8.3 g/dL Flexion Phone: Globulin NOT REPORTED 1.5 - 3.8 g/dL Flexion Phone: Interpretation and review of laboratory results Abnormal Flexion Phone: Flexion Phone: Laboratory - Chemistry and C hemistry - challengeOrdered By: Vinicius Bullock on 04-04-2021 GFR/1.73 sq M.predicted MDRD (S/P/Bld) [Vol rate/Area] Flexion Phone: Comment on above: Average GFR for 50-5 9 years old: 93 mL/min/1.73sq m Chronic Kidney Disease: <60 mL/min/1.73sq m Kidney failure: <15 mL/min/1.73sq m eGFR calculated using average adult body mass. Additional eGFR calculator available at: http://www.[employer]/multiple_crcl_2012.htm Stage 1: Some kidney damage normal GFR Stage 2: Mild kidney damage GFR 60-89 Stage 3: Moderate kidney damage GFR 30-59 Stage 4: Severe kidney damage GFR 15-29 Stage 5: Severe kidney damage GFR <15 ESRD - chronic treatment by dialysis or transplant Sedimentation RateOrdered By : Vinicius Bullock on 04-04-2021 Sed Rate 13 mm 0 - 20 mm Flexion Phone: Flexion Phone: XR ABDOMEN (KUB) (SINGLE AP VIEW)Ordered By: Frank Joe on 02-21-2021 Unremarkable abdominal radiographs without acute abnormality. Flexion Phone: EXAMINATION: ONE SUPINE XRAY VIEW(S) OF THE ABDOMEN 02/21/2021 7:33 am COMPARISON: Abdominal radiographs performed 11/10/2019. HISTORY: ORDERING SYSTEM PROVIDED HISTORY: Urinary urgency FINDINGS: There is a nonobstructive bowel gas pattern. There is no intraperitoneal free air. There are no suspicious calcifications. Stable phleboliths are seen in the pelvis. There is no acute osseous abnormality. The surrounding soft tissues are unremarkable. Flexion Phone: [place], [facility] Incoming Radiant Results From [employer] - 02/21/2021 8:40 AM EDT EXAMINATION: ONE [...] IMPRESSION: Unremarkable abdominal radiographs without acute abnormality. Flexion Phone: gdgt Work Phone: CBC Auto DifferentialOrdered By: Vinicius Bullock on 02-07-2021 Absolute Eos # 0.41 [employer] [facility] Work Phone: Absolute Immature Granulocyte 0.05 gdgt Work Phone: Absolute Lymph # 2.39 [employer] [facility] Work Phone: Absolute [place] # 0.91 [employer] [facility] Work Phone: Basophils (Bld) [#/Vol] 0.08 10*3/uL gdgt Work Phone: Basophils/100 WBC (Bld) 1 % 0 - 2 % M [employer] Phone: Differential Type NOT REPORTED Flexion Phone: Eosinophils/100 WBC (Bld) 4 % 1 - 4 % Flexion Phone: Hematocrit (Bld) [Volume fraction] 36.4 % 36.3 - 47.1 % Flexion Phone: Hemoglobin.gastrointest inal spec 1 Ql (Stl) 11.2 g/dL Low 11.9 - 15.1 g/dL Flexion Phone: Immature granulocytes/100 WBC (Bld) 1 % High 0 Flexion Phone: Interpretation and review of laboratory results Abnormal Flexion Phone: Lymphocytes/100 WBC (Bld) 26 % 24 - 43 % Flexion Phone: MCH (RBC) [Entitic mass] 27.0 pg 25.2 - 33.5 pg Flexion Phone: MCHC (RBC) [Mass/Vol] 30.8 g/dL 28.4 - 34.8 g/dL Flexion Phone: MCV (RBC) [Entitic vol] 87.7 fL 82.6 - 102.9 fL Flexion Phone: Monocytes/100 WBC (Bld) 10 % 3 - 12 % M [employer] Phone: NRBC Automated 0.0 0.0 per 100 WBC Flexion Phone: Platelet distribution width (Bld) [Ratio] 14.5 % High 11.8 - 14.4 % Flexion Phone: Platelet Estimate NOT REPORTED Flexion Phone: Platelet mean volume (Bld) [Entitic vol] 10.0 fL 8.1 - 13.5 fL Flexion Phone: Platelets (Bld) [#/Vol] 390 10*3/uL Flexion Phone: RBC (Bld) [#/Vol] 4.15 10*6/uL 3.95 - 5.1 1 m/uL Flexion Phone: RBC (Bld) [#/Vol] NOT REPORTED Flexion Phone: Segmented neutrophils/100 WBC (Bld) 58 % 36 - 65 % Flexion Phone: Segs Absolute 5.47 [employer] Work Phone: WBC (Bld) [#/Vol] 9.3 10*3/uL Flexion Phone: WBC (Bld) [#/Vol] NOT REPORTED Flexion Phone: Flexion Phone: Creatinine, SerumOrdered By: Vinicius Bullock on 02-07-2021 Creatinine [Mass/Vol] 1.25 mg/dL High 0.50 - 0.90 mg/dL Flexion Phone: GFR 54 mL/min Low >60 [employer] Phone: GFR Non- 44 mL/min Low >60 Flexion Phone: Interpretation and review of laboratory results Abnormal Flexion Phone: Flexion Phone: Hepatic Function PanelOrdere d By: Vinicius Bullock on 02-07-2021 Albumin [Mass/Vol] 4 g/dL 3.5 - 5.2 g/dL Flexion Phone: Albumin/Globulin [Mass ratio] 1.1 {ratio} Flexion Phone: ALP (Bld) [Catalytic activity/Vol] 95 U/L 35 - 104 U/L Flexion Phone: ALT [Catalytic activity/Vol] 13 U/L 5 - 33 U/L Flexion Phone: AST [Catalytic activity/Vol] 22 U/L <32 [employer] Phone: Bilirubin [Mass/Vol] mg/dL Low 0.3 - 1 .2 mg/dL [employer] Phone: Bilirubin, Indirect CANNOT BE CALCULATED 0.00 - 1.00 mg/dL [employer]ion Phone: Bilirubin.indirect [Mass/Vol] mg/dL <0.31 mg/dL Flexion Phone: Free PSA/Total PSA [Mass fraction] 7.5 g/dL 6.4 - 8.3 g/dL Flexion Phone: Globulin NOT REPORTED 1.5 - 3.8 g/dL Flexion Phone: Interpretation and review of laboratory results Abnormal Flexion Phone: Flexion Phone: Laboratory - Chemistry and C hemistry - challengeOrdered By: Vinicius Bullock on 02-07-2021 GFR/1.73 sq M.predicted MDRD (S/P/Bld) [Vol rate/Area] Flexion Phone: Comment on above: Average GFR for 50-5 9 years old: 93 mL/min/1.73sq m Chronic Kidney Disease: <60 mL/min/1.73sq m Kidney failure: <15 mL/min/1.73sq m eGFR calculated using average adult body mass. Additional eGFR calculator available at: http://www.[employer]/multiple_crcl_2012.htm Stage 1: Some kidney damage normal GFR Stage 2: Mild kidney damage GFR 60-89 Stage 3: Moderate kidney damage GFR 30-59 Stage 4: Severe kidney damage GFR 15-29 Stage 5: Severe kidney damage GFR <15 ESRD - chronic treatment by dialysis or transplant Sedimentation RateOrdered By : Vinicius Bullock on 02-07-2021 Interpretation and review of laboratory results Abnormal Flexion Phone: Sed Rate 62 mm High 0 - 20 mm gdgt Work Phone: gdgt Work Phone: CBC Auto DifferentialOrdered By: Vinicius Bullock on 12-13-2020 Absolute Eos # 0.30 [employer] [facility] Work Phone: Absolute Immature Granulocyte 0.08 gdgt Work Phone: Absolute Lymph # 2.93 [employer] [facility] Work Phone: Absolute [place] # 1.04 [employer] [facility] Work Phone: Basophils (Bld) [#/Vol] 0.08 10*3/uL gdgt Work Phone: Basophils/100 WBC (Bld) 1 % 0 - 2 % M [employer] Work Phone: Differential Type NOT REPORTED Flexion Phone: Eosinophils/100 WBC (Bld) 2 % 1 - 4 % Flexion Phone: Hematocrit (Bld) [Volume fraction] 37.6 % 36.3 - 47.1 % Flexion Phone: Hemoglobin.gastrointest inal spec 1 Ql (Stl) 12.0 g/dL 11.9 - 15.1 g/dL Flexion Phone: Immature granulocytes/100 WBC (Bld) 1 % High 0 gdgt Work Phone: Interpretation and review of laboratory results Abnormal Flexion Phone: Lymphocytes/100 WBC (Bld) 21 % Low 24 - 43 % Flexion Phone: MCH (RBC) [Entitic mass] 27.8 pg 25.2 - 33.5 pg Flexion Phone: MCHC (RBC) [Mass/Vol] 31.9 g/dL 28.4 - 34.8 g/dL Flexion Phone: MCV (RBC) [Entitic vol] 87.0 fL 82.6 - 102.9 fL Flexion Phone: Monocytes/100 WBC (Bld) 7 % 3 - 12 % M [facility] Work Phone: NRBC Automated 0.0 0.0 per 100 WBC Flexion Phone: Platelet distribution width (Bld) [Ratio] 13.1 % 11.8 - 14.4 % Flexion Phone: Platelet Estimate NOT REPORTED Flexion Phone: Platelet mean volume (Bld) [Entitic vol] 9.7 fL 8.1 - 13.5 fL Flexion Phone: Platelets (Bld) [#/Vol] 345 10*3/uL Flexion Phone: RBC (Bld) [#/Vol] 4.32 10*6/uL 3.95 - 5.1 1 m/uL Flexion Phone: RBC (Bld) [#/Vol] NOT REPORTED Flexion Phone: Segmented neutrophils/100 WBC (Bld) 68 % High 36 - 65 % gdgt Work Phone: Segs Absolute 9.87 High [employer] Work Phone: WBC (Bld) [#/Vol] 14.3 10*3/uL High gdgt Work Phone: WBC (Bld) [#/Vol] NOT REPORTED Flexion Phone: gdgt Work Phone: Creatinine, SerumOrdered By: Vinicius Bullock on 12-13-2020 Creatinine [Mass/Vol] 1.48 mg/dL High 0.50 - 0.90 mg/dL Flexion Phone: GFR 44 mL/min Low >60 [employer] Phone: GFR Non- 36 mL/min Low >60 Flexion Phone: Interpretation and review of laboratory results Abnormal Flexion Phone: Flexion Phone: Hepatic Function PanelOrdere d By: Vinicius Bullock on 12-13-2020 Albumin [Mass/Vol] 4.2 g/dL 3.5 - 5.2 g/dL Flexion Phone: Albumin/Globulin [Mass ratio] 1.1 {ratio} Flexion Phone: ALP (Bld) [Catalytic activity/Vol] 86 U/L 35 - 104 U/L Flexion Phone: ALT [Catalytic activity/Vol] 12 U/L 5 - 33 U/L Flexion Phone: AST [Catalytic activity/Vol] 21 U/L <32 Flexion Phone: Bilirubin [Mass/Vol] mg/dL Low 0.3 - 1 .2 mg/dL Flexion Phone: Bilirubin, Indirect CANNOT BE CALCULATED 0.00 - 1.00 mg/dL Flexion Phone: Bilirubin.indirect [Mass/Vol] mg/dL <0.31 mg/dL Flexion Phone: Free PSA/Total PSA [Mass fraction] 7.9 g/dL 6.4 - 8.3 g/dL Flexion Phone: Globulin NOT REPORTED 1.5 - 3.8 g/dL Flexion Phone: Interpretation and review of laboratory results Abnormal Flexion Phone: Flexion Phone: Laboratory - Chemistry and C hemistry - challengeOrdered By: Vinicius Bullock on 12-13-2020 GFR/1.73 sq M.predicted MDRD (S/P/Bld) [Vol rate/Area] Flexion Phone: Comment on above: Average GFR for 50-5 9 years old: 93 mL/min/1.73sq m Chronic Kidney Disease: <60 mL/min/1.73sq m Kidney failure: <15 mL/min/1.73sq m eGFR calculated using average adult body mass. Additional eGFR calculator available at: http://www.[employer]/multiple_crcl_2012.htm Stage 1: Some kidney damage normal GFR Stage 2: Mild kidney damage GFR 60-89 Stage 3: Moderate kidney damage GFR 30-59 Stage 4: Severe kidney damage GFR 15-29 Stage 5: Severe kidney damage GFR <15 ESRD - chronic treatment by dialysis or transplant Sedimentation RateOrdered By : Vinicius Bullock on 12-13-2020 Interpretation and review of laboratory results Abnormal Flexion Phone: Sed Rate 54 mm High 0 - 20 mm Flexion Phone: Flexion Phone: CBC Auto Differentialon 09-26 Basophils (Bld) [#/Vol] 0.06 10*3/uL Flexion Phone: Basophils/100 WBC (Bld) 1 % 0 - 2 % M [facility] Phone: Differential Type NOT REPORTED Flexion Phone: Eosinophils (Bld) [#/Vol] 0.33 10*3/uL Flexion Phone: Eosinophils/100 WBC (Bld) 4 % 1 - 4 % Flexion Phone: Erythrocyte distribution width (RBC) [Ratio] 13.3 % 11.8 - 14.4 % Flexion Phone: Hematocrit (Bld) [Volume fraction] 39.0 % 36.3 - 47.1 % Flexion Phone: Hemoglobin (Bld) [Mass/Vol] 12.3 g/dL 11.9 - 15.1 g/dL Flexion Phone: Immature granulocytes (Bld) [#/Vol] 0 % 0 Flexion Phone: Immature granulocytes (Bld) [#/Vol] 0.04 10*3/uL [employer] Phone: Lymphocytes (Bld) [#/Vol] 2.45 10*3/uL Flexion Phone: Lymphocytes/100 WBC (Bld) 27 % 24 - 43 % Flexion Phone: MCH (RBC) [Entitic mass] 27.8 pg 25.2 - 33.5 pg Flexion Phone: MCHC (RBC) [Mass/Vol] 31.5 g/dL 28.4 - 34.8 g/dL Flexion Phone: MCV (RBC) [Entitic vol] 88.2 fL 82.6 - 102.9 fL Flexion Phone: Monocytes (Bld) [#/Vol] 0.79 10*3/uL [employer]ion Phone: Monocytes/100 WBC (Bld) 9 % 3 - 12 % M [facility] Phone: Platelet mean volume (Bld) [Entitic vol] 10.4 fL 8.1 - 13.5 fL Flexion Phone: Platelets (Bld) [#/Vol] 284 10*3/uL [employer] Phone: Platelets (Bld) [#/Vol] NOT REPORTED [employer] Phone: RBC (Bld) [#/Vol] 4.42 10*6/uL 3.95 - 5.1 1 m/uL gdgt Work Phone: RBC morphology finding Nom (Bld) NOT REPORTED gdgt Work Phone: Segmented neutrophils/100 WBC (Bld) 59 % 36 - 65 % gdgt Work Phone: Segs Absolute 5.38 [employer] Work Phone: WBC (Bld) [#/Vol] 9.1 10*3/uL Flexion Phone: WBC (Bld) [#/Vol] 0.0 10*3/uL 0.0 per 10 0 WBC Flexion Phone: WBC Morphology NOT REPORTED [employer] [facility] Work Phone: Creatinine, Serumon 10-14-19 21 Creatinine [Mass/Vol] 1.45 mg/dL High 0.50 - 0.90 mg/dL Flexion Phone: GFR 45 mL/min Low >60 [employer] Phone: GFR Non- 37 mL/min Low >60 Flexion Phone: Interpretation and review of laboratory results Abnormal Flexion Phone: Hepatic Function Panelon Albumin [Mass/Vol] 4.5 g/dL 3.5 - 5.2 g/dL Flexion Phone: Albumin/Globulin [Mass ratio] 1.3 {ratio} Flexion Phone: ALP [Catalytic activity/Vol] 93 U/L 35 - 104 U/L Flexion Phone: ALT [Catalytic activity/Vol] 12 U/L 5 - 33 U/L [employer]ion Phone: AST [Catalytic activity/Vol] 21 U/L <32 Flex[employer] Phone: Bilirubin Ql (U) <0.10 Low 0.3 - 1.2 mg/dL Flexion Phone: Bilirubin, Indirect CANNOT BE CALCULATED 0.00 - 1.00 mg/dL Flexion Phone: Bilirubin.direct [Mass/Vol] mg/dL <0.31 mg/dL Flexion Phone: Globulin (S) [Mass/Vol] NOT REPORTED 1.5 - 3.8 g/dL Flexion Phone: Interpretation and review of laboratory results Abnormal Flexion Phone: Protein [Mass/Vol] 7.9 g/dL 6.4 - 8.3 g/dL Flexion Phone: Metabolic Panelon 10-13-2020 GFR/1.73 sq M predicted among non-blacks MDRD (S/P/Bld) [Vol rate/Area] Flexion Phone: Comment on above: Stage 1: Some [...] body mass. Additional eGFR calculator available at: http://www.[employer]/multiple_crcl_2012.htm Sedimentation Rateon 021 Interpretation and review of laboratory results Abnormal Flexion Phone: Sed Rate 25 mm High 0 - 20 mm Flexion Phone: XR ABDOMEN (KUB) (SINGLE AP VIEW)on 11-10-2019 No definite renal stones are seen. There is a 2-3 mm calcification in the pelvis on the left felt more likely to reflect a phlebolith although a distal left ureteral stone is not entirely excluded. Consider CT as clinically indicated. [facility] [place] EXAMINATION: ONE SUPINE XRAY VIEW(S) OF THE [...] intraperitoneal free air. No acute bony abnormalities. [facility] [place] [facility], [facility] Incoming Radiant Results From [employer] - 11/10/2019 8:02 AM EDT EXAMINATION: ONE [...] entirely excluded. Consider CT as clinically indicated. [facility] FING[facility] LEFT MIN 2 [facility] 03-29 [facility] LEFT MIN [facility] [address] [place] [address] Patient Name: SYLVIA GARAY : 1965Sex: FAge: Race: OtherMRN: [id number]. Location: OUTPPatient Status: OVisit #: [id number] Date: 04/15/2017 7:10:00 AMCompleted Date: 04/15/2017 08:31 AMRequesting Provider: OREN LPOES Attending Provider: OREN LOPES Report Copy To: Signs & Symptoms: LT THUMB IP FUSIONHistory: LT THUMB IP FUSIONComments: LT THUMB IP FUSIONExam: FINGER LEFT MIN 2 VWSAccession #: [id number] FIN SEAN LEFT MIN 2 VWS 04/15/2017 8:31 AM EDT SIGNS AND SYMPTOMS: LT THUMB IP FUSION lt thumb IP fusion fluoro time 22 secs TECHNIQUE: Intraprocedural fluoroscopy without radiologist supervision or interpretation. Electronically signed by:Mervin Rios M.D.. Transcribed by: [email or web address], User Resident: Electronically Signed by: MERVIN RIOS @ 04/15/2017 10:35 AM Normal [facility] Comment on above: Order Comment: LT TH UMB IP FUSION Operative Reporton 7 Operative Report MR#: [id number] [facility] Pt. Name: Sylvia Garay Room #: 0C Discharge Date: Birthdate: 1965 OPERATIVE REPORTDATE OF SURGERY: 04/15/2017SURGEON: Oren Lopes M.D.PREOPERATIVE DIAGNOSIS: Degenerative osteoarthritis, left thumb IP joint.POSTOPERATIVE DIAGNOSIS: Degenerative osteoarthritis, left thumb IPjoint.PROCEDURE: IP joint fusion, left thumb.GENERAL MAINTENANCE MECHANIC: Cain Jean M.D.ANESTHESIA: Regional with an axillary block.INDICATION FOR SURGERY: Sylvia is a 51-year-old female who [facility] of pain and worsening deformityin her left thumb. Clinically, she has about 11-75-vbvpmv ulnar deviationdeformity at the IP joint of [...] prepared andthe thumb was straight with good cxuv-by-gyoo contact. We took a guidewirefrom the [employer] [...] extensor mechanism was reapproximated with a couple ckfwremg-nv-nuisd sutures of 4-0 Vicryl. The skin with a buried 4-0 Vicryland then 5-0 Novafil. Sterile dressing of Xeroform gauze, 4x4, fluffs,Araceli, and an William bandage were applied. The tourniquet was released. Allsponge and needle counts were correct at time of closure.Electronicall y Signed by:Oren Lopes M.D. 04/16/2017 12:36 P Jasmin Lopes M.D.Date Dict: 04/15/2017/10:23 Lovely/Oren Lopes M.D.Date Trans: 04/15/2017 10:48 A/Mona_[id number]: Josefa Martinez M.D. Life Stages 3 [facility] [id number] Normal [facility] POC GLUCOSE LABon 04-15-2017 Glucose mass conc 100 mg/dL Normal 70-100 [facility] Comment on above: Performed By: #### [id number] ####[place] [address], [facility] FINGER LEFT MIN 2 VWSon 01-26 FINGER LEFT MIN 2 VWS [facility] [address] [place] [address] Patient Name: SYLVIA GARAY : 1965Sex: FAge: Race: OtherMRN: [id number]. Location: 84Patient Status: OVisit #: [id number] Date: 02/13/2017 9:25:00 AMCompleted Date: 02/13/2017 09:28 AMRequesting Provider: BOB BROWN Attending Provider: BOB BROWN Report Copy To: Signs & Symptoms: S63.125A Dislocation of unsp interphaln joint of left thumb, init [id number]: AthenaComments: , , L thumb , , , Ordering Provider - BOB BROWN , Rendering Provider - BOB BROWN , Exam: FINGER LEFT MIN 2 VWSAccession #: [id number] FIN SEAN LEFT MIN 2 VWS 02/13/2017 [...] change. Electronically signed by:Mervin Epstein. Transcribed by: [email or web address], User Resident: Electronically Signed by: MERVIN EPSTEIN @ 02/13/2017 10:45 AM Normal [facility] Comment on above: Order Comment: , , L thumb , , , Ordering Provider - BOB BROWN , Rendering Provider - BOB BROWN , Vital Signs Date Time Vital Sign Value Performing Clinician Facility 12-19-2021 09:30-0400 Body height 152.4 cm Juan Luisjami Dayyonas Other [facility] Other 12-19-2021 09:30-0400 Body mass index (BMI) [Ratio] 34.37 kg/m2 Candi Bernsteinyonas Other [facility] Other 12-19-2021 09:30-0400 Body temperature 96.9 [degF] Candi George Other [facility] Other 12-19-2021 09:30-0400 Body weight 79.83 kg Juan Luisjami Ariel Other [facility] Other 12-19-2021 09:30-0400 Diastolic blood pressure 72 mm[Hg] Juan Luisjami George Other [facility] Other 12-19-2021 09:30-0400 Respiratory rate 20 /min Juan Luisjami Dayyonas Other [facility] Other 12-19-2021 09:30-0400 SaO2% (BldA) [Mass fraction] 99 % Juan Luisjami George Other [facility] Other 12-19-2021 09:30-0400 Systolic blood pressure 120 mm[Hg] Candi George Other [facility] Other 10-13-2020 14:25-0400 BP Diastolic 89 mm[Hg] [employer] Phone: 10-13-2020 14:25-0400 BP Systolic 135 mm[Hg] [facility] Phone: 10-13-2020 14:25-0400 Pulse (Heart Rate) 81 /min [facility] Phone: 10-13-2020 14:25-0400 Respiratory Rate 16 /min [facility] Phone: 10-13-2020 14:00-0400 Pulse Oximetry 98 % [employer] Phone: 10-13-2020 11:13-0400 BMI (Body Mass Index) 34.76 kg/m2 [employer] Phone: 10-13-2020 11:13-0400 Body Temperature 98.01 [degF] [facility] Phone: 10-13-2020 11:13-0400 Body weight 80.74 kg [employer] Phone: Encounters Encounter Date Encounter Type Care Provider Facility Start: 02-07-2024 ambulatory Frank Garcia ty:[facility] Start: 09-03-2023 End: 09-03-2023 ambulatory JAKOB Do [facility] Start: 08-13-2023 End: 08-13-2023 ambulatory LINK LOUISE Not Available Start: 08-06-2023 End: 08-06-2023 ambulatory JOSEFA MARTINEZ Not Available Start: 05-14-2023 End: 05-14-2023 ambulatory JAKOB Do [facility] Start: 02-05-2023 End: 02-05-2023 ambulatory JAKOB Do [facility] Start: 02-04-2023 End: 02-05-2023 ambulatory Frank JOE Facility:[facility] Start: 12-12-2022 ambulatory CANDI Madrigal [place] [facility] Start: 11-09-2022 End: 11-09-2022 ambulatory JAKOB Do [facility] Start: 11-06-2022 End: 11-07-[address] VINICIUS BULLOCK Facility:[facility] Start: 10-03-2022 End: 10-03[facility]20[facility]: 09-21-2022 End: 09-21-2022 ambulatory JAKOB Do [facility] [place] Start: 09-11-2022 End: 09-12-[address] VINICIUS BULLOCK Facility:[facility] Start: 08-13-2022 End: 08-13-2022 ambulatory Josefa Martinez Facility:[facility] Start: 08-13-2022 End: 08-13-2022 ambulatory MD Josefa Martinez Work Phone: [facility] Work Phone: Start: 08-13-2022 End: 08-13-2022 Patient encounter procedure MD Josefa Martinez Work Phone: [facility] Work Phone: Start: 07-25-2022 End: 07-25-2022 ambulatory Josefa Martinez Facility:[facility] Start: 07-25-2022 End: 07-25-2022 ambulatory MD Josefa Martinez Work Phone: [facility] Work Phone: Start: 07-25-2022 End: 07-25-2022 Patient encounter procedure MD Josefa Martinez Work Phone: [facility] Work Phone: Start: 06-11-2022 End: 06-12-2022 ambulatory [facility]ICIUS Madrigal [facility] Start: 06-11-2022 End: 06-11-2022 Subsequent hospital visit by physician Josefa Martinez MD Work Phone: [facility] Start: 05-20-2022 End: 05-20-2022 Emergency department patient visit [facility] Start: 04-11-2022 End: 04-12-2022 ambulatory VINICIUS Madrigal [facility] Start: 04-11-2022 End: 04-11-2022 Subsequent hospital visit by physician Josefa Martinez MD Work Phone: [facility] Start: 02-15-2022 End: 02-16-2022 ambulatory VINICIUS Madrigal [facility] Start: 02-15-2022 End: 02-15-2022 Subsequent hospital visit by physician Josefa Martinez MD Work Phone: [facility] Start: 02-09-2022 End: 02-10-2022 ambulatory Frank JOE Facility:[facility] Start: 12-19-2021 End: 12-19-2021 ambulatory Candi Dayyonas Other [employer] Other Start: 12-19-2021 Office outpatient visit 15 minutes Candi George [facility] Start: 11-27-2021 End: 11-29-2021 Subsequent hospital visit by physician Apple [facility] Comment on above: Pulmonary fibrosis ( [...] by physician Apple Manriquez [address] [facility] Comment on above: Urinary urgency Start: 02-07-2021 End: 02-07-2021 Subsequent hospital visit by physician Josefa Martinez Work Phone: [facility] Start: 12-13-2020 End: 12-13-2020 Subsequent hospital visit by physician Josefa Martinez Work Phone: [facility] Start: 10-13-2020 End: 10-13-2020 Emergency department patient visit Zakiya Knight Work Phone: [facility] ED Comment on above: Fall, initial encoun ter (Primary Dx); Abrasion of scalp, initial encounter Start: 10-13-2020 End: 10-13-2020 Subsequent hospital visit by physician Josefa [facility] Start: 11-10-2019 End: 11-12-2019 Subsequent hospital visit by physician Apple Manriquez Dr [facility] Comment on above: Kidney stone Start: 01-27-2018 End: 01-28-2018 Ambulatory DEFAULT PHYSICIAN Facility:[facility] Start: 04-25-2017 End: 04-26-2017 Ambulatory DEFAULT PHYSICIAN Facility:[facility] Start: 04-15-2017 End: 04-16-2017 Ambulatory [facility] Facility:[facility] Start: 02-13-2017 End: 02-14-2017 Ambulatory [facility] Facility:[facility] Procedures Date Procedure Procedure Detail Performing [...] Radiologic exam abdo men 1 view Frank Joe Work Phone: Start: 02-07-2021 Creatinine blood Vinicius [...] Radiologic exam abdo men 1 view Frank Lea Joe Work Phone: Start: 04-15-2017 ANESTH LOWER ARM SURGERY TENNILLE RODRÍGUEZ Start: 04-15-2017 FUSION OF FINGER JOINT OREN HUA Plan of Treatment Date Care Activity Detail Author Start: 08-31-2028 DTaP/Tdap/Td vaccine (4 - Td or Tdap) DTaP/Tdap/Td vaccine (4 - Td or Tdap) [facility] Start: 08-31-2028 DTaP/Tdap/Td vaccine (4 - Td) DTaP/Tdap/Td vaccine (4 - Td) [facility] [place] Start: 10-03-2022 Creatinine measurement Creatinine [facility] Start: 05-30-2022 Creatinine measurement Creatinine mo [facility] Start: 04-04-2022 Creatinine measurement [facility] mo [email or web address] Work Phone: Start: 03-29-2022 Influenza vaccination Flu vaccine (# 1) [facility] [employer] Start: 02-26-2022 Influenza vaccination Flu vaccine (# 1) [facility] [employer] Start: 02-07-2022 Creatinine measurement [facility]inine mo [email or web address] Work Phone: Start: 12-13-2021 Creatinine measurement Creatinine mo [email or web address] Work Phone: Start: 10-13-2021 Creatinine measurement Creatinine mo [facility] [employer] Phone: Start: 10-11-2021 COVID-19 Vaccine (4 - Booster for Caden series) COVID-19 Vaccine (4 - Booster for Caden series) [facility] [employer] [facility] Start: 03-29-2021 Influenza vaccination M [facility] Start: 12-22-2020 COVID-19 Vaccine (2 - Booster for Caden series) COVID-19 Vaccine (2 - Booster for Caden series) [facility] Start: 03-29-2020 Influenza vaccination M [place], [place] Start: 10-06-2017 Lipid panel [facility] Start: 10-06-2017 Lipid screen Lipid screen [place], [place] Start: 10-23-2016 Creatinine monitoring Creatinine mon itoring [place], [place] Start: 10-23-2016 Potassium [Moles/vol ume] in Serum or Plasma Potassium [facility] Start: 10-23-2016 Potassium monitoring Potassium monit oring [facility] Start: 03-24-2016 Shingles Vaccine (2 of 3) Shingles Vaccine (2 of 3) [facility] Start: 2014 Breast cancer screen Breast cancer s creen [place], [place] Start: 2014 Colon cancer screen colonoscopy Colon cancer screen colonoscopy [place] Start: 2014 Screening for malign ant neoplasm of breast Breast cancer screen [facility] Start: 2014 Screening for malign ant neoplasm of colon Colon cancer screen colonoscopy [facility] Work Phone: Start: 08-30-2012 Screening for malign ant neoplasm of colon [facility] Start: 08-31-2011 Screening for malign ant neoplasm of colon Colorectal Cancer Screen [facility] Start: 2009 Screening for malign ant neoplasm of colon [facility] Start: 1994 Screening for malign ant neoplasm of cervix [facility] Start: 1985 Cervical cancer screen Cervical canc er screen [place], [place] Start: 1985 Screening for malign ant neoplasm of cervix [facility] Start: 1982 Hepatitis C screening Hepatitis C sc reen [facility] Start: 1980 COVID-19 Vaccine (1) COVID-19 Vaccin e (1) [facility] [employer] Phone: Start: 1979 HIV screen HIV screen [place], [place] Start: 1979 HIV screening HIV screen [facility] Start: 1976 COVID-19 Vaccine (1) COVID-19 Vaccin e (1) [facility] Work Phone: Start: 1976 Depression Screen Depression Screen [employer] [facility] Start: 1964 Hepatitis C screen Hepatitis C vie erlin [facility]- [place], [place] Start: 1964 Hepatitis C screening Hepatitis C sc lyly [facility] Immunizations Immunization Date Immunization Notes Care Provider Fa amaya 08-16-2021 COVID-19 Moderna Candi kern Other [employer] Other 10-14-2020 COVID-19 Vaccine Caden - Documentation Purposes Only Candi George Other [employer] Other Payers Date Payer Category Payer Unknown [id number] 2022 Self-pay [id number] 2019 Unknown FRONTPATH [employer]ON[employer]-[facility] xxxxxxxxx 2019-Present [phone] [address] [place] [address] xxxxxxxxx [id number] 2015 Unknown [id number] 1964 Unknown [id number] 1964 Unknown [id number] 1964 Unknown [id number] 1964 Unknown [id number] [id number] 1964 Unknown [id number] [id number] 1964 Unknown [id number] [id number] 1964 Unknown [id number] [id number] 1964 Unknown [id number] [id number] 1964 Unknown [id number] [id number] 1964 Unknown [id number] [id number] 1964 Unknown [id number] [id number] 1964 Unknown [id number] [id number] 1959 Unknown [id number] Unknown Unknown [id number] Unknown [id number] Social History Date Type Detail Facility Start: 01-29-2013 End: 10-13-2020 Tobacco smoking status [facility] Former smoker [facility] Start: 01-29-2013 End: 05-20-2022 Alcohol intake Current non-drinker of alcohol (finding) [place], [place] Start: 1965 Sex Assigned At Not on file [place] Start: 10-13-2020 Tobacco use and exposure Never used [employer] [facility]: Start: 05-10-2022 End: 05-20-2022 Exposure to SARS-CoV-2 (event) Not sure [employer] [facility]: Sex Assigned At Sex Assigned At Bir [facility] Other History of tobacco use Current smoker [facility] [employer] Phone: Start: 1965 Sex Assigned At Female F [facility] Clinical Notes 12-19-2021 to 09-03-2023 Note Date & Type Note Facility 09-03-2023 Note Subjective Earlynne Red is a 58 y.o. year old female patient being seen for pulmonary arterial hypertension. She is doing well. She denies any chest pain or chest discomfort, she has stable dyspnea on exertion but good functional capacity, no dizziness or lightheadedness and no palpitation. She did not get still her medication and she is having problem connecting with the resources. Patient Active Problem List Diagnosis Arthropathy Atrial fibrillation (CMS/HCC) Chest pain Coronary artery disease involving kashia coronary artery of kashia heart without angina pectoris Deficiency anemia Essential [...] and are negative. Objective Visit Vitals BP 120/60 Pulse 66 Ht 1.6 m (5' 3 ) Wt 73.5 kg (162 lb) BMI 28.70 kg/m??? OB Status Postmenopausal Smoking Status Former BSA 1.81 m??? Physical Exam Physical Exam Constitutional: Appearance: Normal appearance. HENT: Head: Normocephalic and atraumatic. Nose: Nose [...] morning and at bedtime., Disp: , Rfl: lisinopril 10 mg tablet, Take 10 mg by mouth in the morning., Disp: , Rfl: NIFEdipine XL (Procardia XL) 60 mg 24 hr tablet, Take 60 mg by mouth in the morning., Disp: , Rfl: omeprazole (PriLOSEC) [address] capsule, Take 40 mg by mouth before breakfast., Disp: , Rfl: tolterodine LA (Detrol LA) 4 mg 24 hr capsule, Take 4 mg by mouth in the morning., Disp: , Rfl: ambrisentan (Letairis) 10 mg tablet, Take 1 tablet (10 mg) by mouth in the morning. Do not crush, chew, or split., Disp: 90 tablet, Rfl: 3 cetirizine (ZyrTEC) 10 mg tablet, Take 10 mg by mouth in the morning., Disp: , Rfl: cholecalciferol (D3-5) 5,000 Units tablet, Take 5,000 Units by mouth in the morning., Disp: , Rfl: hydroxychloroquine (Plaquenil) 200 mg tablet, Take 200 mg by mouth as directed by study team. Takes 1 tablet oral every other day alternating with 1 tablet twice a day every other day, Disp: , Rfl: macitentan (Opsumit) 10 mg tablet, Take 10 mg by mouth in the morning., Disp: , Rfl: sulfaSALAzine (Azulfidine) 500 mg EC tablet, Take 1,000 mg by mouth in the morning and at bedtime., Disp: , Rfl: tadalafil (Cialis) 20 mg tablet, Take 1 tablet (20 mg) by mouth in the morning. (Patient not taking: Reported on 05/14/2023), Disp: 90 tablet, Rfl: 3 Recent Labs Lab Results Component Value Date NA 137 10/03/2022 K 3.8 10/03/2022 CL 103 10/03/2022 CO2 27 10/03/2022 BUN 30 (H) 10/03/2022 CREATININE 1.44 (H) 10/03/2022 GLUCOSE 101 (H) 10/03/2022 CALCIUM 9.9 10/03/2022 Imaging and other tests Assessment/Plan 1.pulmonary hypertension NYHA FC II, PAH due schleroderma. Euvolemic on physical exam Her right heart catheterization (09-21-2022) showed elevated pulmonary vascular resistance up to 7 Wood unit. Mean pulmonary atrial pressure is 36 mmHg. Echo (09/03/2023) showed again severe pulmonary hypertension mild with estimated value of 72 mmHg. Right ventricle function is normal in size and function and a review of the echo myself. Once again we are still challenged by insurance to provide her medication. I asked my volleyball assistant coach and Feli THOMPSON, to call [facility] special pharmacy and send notes medication by mail. We will focus on her getting her medication. We will try to find a way to (more content not included)... [facility] 05-14-2023 Note [facility] Note Chief Complaint: PAH HPI: Sylvia Zavala is a 58 y.o. [...] by insurance to provide her medication. [facility] specialty pharmacy told her that tadalafil is just for men and not for woman. We will try again again to get her back on macitentan and adcirca and push insurance to cover her as much as we can. I asked my volleyball assistant coach and MAFeli, to call [facility] special pharmacy and send notes medication by mail. We will try to find a way to cover her medication. 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 year old female patient being seen for pulmonary hypertension. Sylvia is a very pleasant woman. She had a stable dyspnea on exertion. No chest pain or chest discomfort, no dizziness or lightheadedness, no syncope and no palpitation. Patient Active Problem List Diagnosis Arthropathy Atrial fibrillation (CMS/HCC) Chest pain Coronary artery disease involving kashia coronary artery of kashia heart without angina pectoris Deficiency anemia Essential [...] Ratio 10/03/2022 20.8 Imaging and other tests [facility] 09-21-2022: HEMODYNAMICS: AO: 117/74 mmHg RA: 7/5 (4) mmHg RV: 53/4 (7) mmHg PA: 54/19 (36) mmHg PCWP: 12/10 (8) mmHg PVR: 7 Srerano Units CO: 4.17 CI: 2.32 Assessment/Plan 1.pulmonary hypertension NYHA FC II, PAH due schleroderma. Euvolemic on physical exam Echo showed again severe pulmonary hypertension. Her right heart catheterization showed elevated pulmonary vascular resistance up to 7 Wood unit. Mean pulmonary atrial pressure is 36 mmHg. Once again we are still challenged by insurance (more content not included)... [facility] 11-22-2022 Note Supervising Physicia n & Clinic:?? Dr. Pruitt, Cardiology Sylvia Zavala is a 57 y.o. year-old female with [...] back with questions or concerns.? Carola Douglass, Mary Carmen, BCACP, CSP 11/22/22 9:34 AM [facility] [phone] [facility] 11-22-2022 Note Emailed clinic staff the below note, as they will be following up Sylvia Zavala 63: tadalafil authorization was denied due [...] see the medication is currently at [facility]. [facility] 11-09-2022 Note tadalafil [place] [facility] Subjective Sylvia Sheikh is a 57 y.o. year old female patient being seen for pulmonary hypertension. She had a stable dyspnea on exertion. No chest pain or chest discomfort, no dizziness or lightheadedness, no syncope and no palpitation. 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 [facility] 12-19-2021 Evaluation note Encounter Date Diagnosis Assessment Notes November, Pulmonary fibrosis, unspecified (ICD-10 - J84.10) November, Systemic sclerosis, unspecified (ICD-10 - M34.9) November, 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) [facility] Other Evaluation note* Diagnosis Urinary urgency Urgency of urination documented in this encounter [employer]: evaluation note* Diagnosis Pulmonary fibrosis (HCC) Postinflammatory pulmonary fibrosis documented in this encounter [employer] [facility]: evaluation noteNo assessment information available [facility] Work Phone: [facility] Narrative - Reported* Type Description Date Medical History scleroderma Medical History Hypertension Medical History pulmonary hypertension Medical History Esophageal reflux Surgical History D&C 2000 Surgical History C section 2001 Surgical History tubal ligation 2001 [facility] Other Summary Purpose Family History No Family History Records FoundNo Family History Records FoundNo Family History Records FoundNo Family History Records FoundNo Family History Records FoundNo Family History Records FoundNo Family History Records Found Advance Directives No Advanced Directives Records FoundDocuments on File Type Date Recorded Patient Automated Manufacturing Instructor Expl anation Advance Directives and Living Will Power of Sprinkler Worker Documents on File Type Date Recorded Patient Automated Manufacturing Instructor Expl anation ACP-Advance Directive ACP-Power of Sprinkler Worker Documents on File Type Date Recorded Patient Automated Manufacturing Instructor Expl anation ACP-Advance Directive ACP-Power of Sprinkler Worker Advance Directive Response Recorded Date/ Time Advance Directives No June 11:06am Assessments Diagnosis Kidney stone Calculus of kidney Diagnosis Fall, initial encounter- Primary Abrasion of scalp, initial encounter Discharge Instructions * Instructions* Zakiya Knight DO - 10/13/2020 Please monitor for any worsening headaches dizziness, nausea, vomiting or numbness or tingling. If these develop please return to the ER. * Attachments The following attachments cannot be sent through Care Everywhere. * Head Injury (Citizen Of [place]) documented in this encounter Chief Complaint and Reason for Visit Chief Complaint pre surgery testing Chief Complaint pre surgery testing M20.12 Additional Source Comments INFORMATION SOURCE (unrecogn ized section and content) DATE CREATED AUTHOR 01/31/2018 [facility] DATE CREATED AUTHOR AUTHOR'S ORGANIZ ATION 09/01/2022 [facility] DATE CREATED AUTHOR AUTHOR'S ORGANIZ ATION 11/12/2022 [facility] DATE CREATED AUTHOR AUTHOR'S ORGANIZ ATION 12/12/2022 [facility] DATE CREATED AUTHOR AUTHOR'S ORGANIZ ATION 02/05/2023 [facility] DATE CREATED AUTHOR AUTHOR'S ORGANIZ ATION 08/14/2023 [facility] DATE CREATED AUTHOR AUTHOR'S ORGANIZ ATION 09/04/2023 [facility] Reason for Visit (unrecogniz ed section and content) Reason Comments Fall pt states 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 Pt denies LOC, states I saw stars Specialty Diagnoses / Procedures Referred By Contac t Referred To Contact Radiology Diagnoses Pulmonary fibrosis (HCC) Procedures CT CHEST HIGH RESOLUTION CT CHEST WO CONTRAST Candi George MD Referral ID Status Reason Start Date Expiration Date Visits Re quested Visits Authorized [id number] Closed 11/06/2021 12/05/2021 1 1 Care Teams (unrecognized sec tion and content) General Manager Food Relationship Specialty Start Date End Date Josefa Martinez MD [address] [place] [address] PCP - General 10/03/12 General Manager Food Relationship Specialty Start Date End Date Josefa Martinez MD [address] [place] [address] PCP - General 10/03/12 General Manager Food Relationship Specialty Start Date End Date Josefa Martinez MD [address] [place] [address] PCP - General 10/03/12 Team Status: Inactive [...] BE BASED ON THE PRIMARY CLINICAL RECORDS. [facility]. provides no warranty or guarantee of the accuracy or completeness of information in this document.
[2023-09-30 10:14] LABS: Basophils Absolute Auto 0.1 10^3/uL (0.0-0.1); Eosinophils Absolute Auto 0.2 10^3/uL (0.0-0.7); Eosinophils Percent Auto 2.6 % (0.9-7.0); Hematocrit 38.2 % (36.0-48.0); Hemoglobin 12.4 g/dL (12.0-16.0); Immature Granulocytes Abs Auto 0.02 10^3/uL (0.00-0.03); Immature Granulocytes Pct Auto 0.2 % (0.0-0.5); Lymphocytes Absolute Auto 2.6 10^3/uL (1.2-3.8); Lymphocytes Percent Auto 31.5 % (20.5-60.0); Mean Corpuscular HGB Conc 32.5 g/dL (29.9-35.2); Mean Corpuscular Hemoglobin 28.7 pg (26.7-34.0); Mean Corpuscular Volume 88.4 fL (81.0-99.0); Mean Platelet Volume 10.1 fL (9.5-13.5); Monocytes Percent Auto 12.2 % (1.7-12.0); Neutrophils Absolute Auto 4.4 10^3/uL (1.4-6.5); Neutrophils Percent Auto 52.5 % (43.0-75.0); Platelet Count 248 10^3/uL (150-450); Red Blood Count 4.32 10^6/uL (4.20-5.40); White Blood Count 8.3 10^3/uL (4.0-11.0)
[2023-09-30 10:22] LABS: Erythrocyte Sedimentation Rate 12 mm/hr (<=30)
[2023-09-30 10:38] LABS: Alanine Aminotransferase 23 U/L (14-59); Albumin Globulin Ratio 0.9; Albumin Level 3.5 g/dL (3.4-5.0); Alkaline Phosphatase 117 U/L (46-116); Aspartate Amino Transferase 20 U/L (15-37); Bilirubin Direct 0.1 mg/dL (0.0-0.2); Bilirubin Total 0.2 mg/dL (0.2-1.0); Estimated GFR (African America >60 (>=60); Estimated GFR (Non-African Ame 51 (>=60); Globulin 3.7 g/dL; Total Protein 7.2 g/dL (6.4-8.2)
== END 2023-09-30 09:54 | disposition home or self-care (01) ==
LOC: LAB 09:54
PROVIDERS: PCP Family Medicine; Visit Provider Internal Medicine Rheumatology
DX: M05.79 Rheumatoid arthritis with rheumatoid factor of multiple sites without organ or systems involvement (principal); Z79.899 Other long term (current) drug therapy
CPT/HCPCS: 36415; 80076; 82565; 85025; 85652

== ENCOUNTER 2023-11-25 07:50 | Outpatient (OUT) | payer OTHER, SELFPAY ==
--- OUTSIDE RECORDS SUMMARY | 2023-11-25 07:55 | XMS_ITS | CCD ---
Author Organization [facility] Care Team Providers Care Hides Inspector Name Role Phone BROWN, CHRISTOPHER Unavailable Unavailable BROWN, CHRISTOPHER Unavailable Unavailable MICHELLE, RUGEN Unavailable Unavailable BROWN, CHRISTOPHER Unavailable Unavailable SKIE, OREN Unavailable Unavailable SKIE, OREN Unavailable Unavailable MICHELLE, RUGEN Unavailable Unavailable MICHELLE, RUGEN Unavailable Unavailable [place] Unavailable Unavailable SKIE, OREN Unavailable Unavailable [place] Unavailable Unavailable PITRODA, TENNILLE Unavailable Unavailable PHYSICIAN, DEFAULT Unavailable Unavailable PHYSICIAN, DEFAULT Unavailable Unavailable MICHELLE, RUGEN Unavailable Unavailable PHYSICIAN, DEFAULT Unavailable Unavailable PHYSICIAN, DEFAULT Unavailable Unavailable MICHELLE, RUGEN Unavailable Unavailable Josefa Martinez M Primary Care Provider Josefa Martinez Primary Care Provider Josefa Martinez Primary Care Provider [phone] Josefa Martinez MD Primary Care Provider Josefa Martinez MD Primary Care Provider Candi George Unavailable Josefa Martinez MD Primary Care Provider [phone] Josefa Martinez MD Primary Care Provider MD Josefa Martinez Primary Care Provider [phone] MD Josefa Martinez Attending Provider MIGUEL Benitez Attending Provider [phone] Josefa Martinez Primary Care Unavailable Giacomo Benitez Attending Unavailable Giacomo Benitez Admitting Unavailable Josefa Martinez Admitting Unavailable Josefa Martinez Attending Unavailable Josefa Martinez Primary Care Unavailable DR VINICIUS BULLOCK Admitting Unavailable HALADAY, DR COLVIN Attending Unavailable MICHELLE, DR RIVERO Primary Care Unavailable HALADAY, DR COLVIN Consulting Unavailable HALADAY, DR COLVIN Admitting Unavailable HALADAY, DR COLVIN Attending Unavailable MICHELLE, DR RIVERO Primary Care Unavailable HALADAY, DR COLVIN Consulting Unavailable CHABAN, KAMAL Referring Unavailable MICHELLE, RUGEN M Primary Care Unavailable MICHELLE, RUGEN M Primary Care Unavailable HALADAVINICIUS Royal Referring Unavailable MICHELLE, RUGEN M Primary Care Unavailable HALADAY, VINICIUS Heredia Referring Unavailable MICHELLE, RUGEN M Primary Care Unavailable HALADAY, VINICIUS Heredia Referring Unavailable MICHELLE, RUGEN M Primary Care Unavailable Frank JOE Attending Unavailable JUNIOR, Frank Lea Attending Unavailable Frank JOE Attending Unavailable MICHELLE, JOSEFA M Attending Unavailable LINK LOUISE Attending Unavailable ALGHOTHANI, MOHAMAD Admitting Unavailable ALGHOTHANI, MOHAMAD Attending Unavailable EDMOND, SAMER J Referring Unavailable [...] Translations: [Augmentin] Drug Allergy 1 AOF [facility] Repository (16 sources) Amoxicillin-Pot Clavulanate; Translations: [AMOXICILLIN-PO T CLAVULANATE] Propensity to adverse reactions to drug 3 [place], [place] (1 source) Amoxicillin / Clavulanate Drug Allergy rash [employer] Other (1 source) Amoxicillin; Translations: [amoxicillin] Drug Allergy [facility] Repository Medications Current Medications Medication Drug [...] disease (2 sources) Atherosclerotic heart disease of [place] coronary artery without angina pectoris; Translations: [Atherosclerotic heart disease of [place] coronary artery without angina pectoris] Onset: 09-21-2022 [...] Onset: 02-13-2017 Episodic Other aftercare (1 source) 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; Translations: [HALF-WAY (CURRENT) USE OF ASPIRIN] Onset: 04-15-2017 Episodic Other aftercare (3 sources) 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; Translations: [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] Onset: 04-11-2022 Episodic Other [...] Range Facility Office Visiton 09-03-2023 Follow-up visit [id number] Sylvia Moon 1965 F Date Provider Department Center 09/03/2023 Mia-JAKOB PRUITT [facility] Family History Problem Relation Age of Onset Hypertension Mother Hypertension Father Family Status - Relation Status Age at Mother Father Level of Service:69537 [place] OFFICE/OUTPATIENT ESTABLISHED MOD MDM 30 MIN Normal [facility] Office Visiton 05-14-2023 Follow-up visit [id number] Sylvia Moon 1965 F Date Provider Department Center 05/14/2023 JAKOB PARIS Family History Problem Relation Age of Onset Hypertension Mother Hypertension Father Family Status - Relation Status Age at Mother Father Level of Service:63688 [place] OFFICE/OUTPATIENT ESTABLISHED MOD MDM 30-39 MIN Normal [facility] Office Visiton 02-05-2023 Follow-up visit [id number] Sylvia Moon 1965 F Date Provider Department Center 02/05/2023 JAKOB PARIS Family History Problem Relation Age of Onset Hypertension Mother Hypertension Father Family Status - Relation Status Age at Mother Father Level of Service:56340 [place] OFFICE/OUTPATIENT ESTABLISHED MOD MDM 30-39 MIN Normal [facility] RAD - Ultrasound Reporton RAD - Ultrasound Report [id number] Normal [facility] Ambulatory Visit Summaryon 0 02-04-2023 Ambulatory Visit Summary HERMANNAASHISHSam Ari :1965 Visit Date:02/04/2023 Ambulatory Visit Instructions Your Diagnosis OAB (overactive bladder) Incomplete bladder emptying Personal history of kidney stones Tests Performed Urnls Dip Stick Auto w/o Microscopy POC 79506 Your Care Team Attending Physician - Frank JOE MD Primary Care Physician - MICHELLE JIMENEZ, JOSEFA [...] JIMENEZ, Frank Lea Where: [facility] Normal [facility] Patient Educationon 02-05-20 23 Patient Education Obstetrics [...] these instructions at home: Medicines ? Take [id number] and prescription medicines only as told by [...] provider. Document Revised: 04/05/2021 Document Reviewed: 04/05/2021 Public Solution Patient Education ? 2022 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 Previous dx of OAB and incomplete bladder emptying. *Tolterodine 4mg 2 tabs QD therapy. SSUAN 01/28/23 Denies UTI since last encounter. Denies [...] When Contact Information JUNIOR JIMENEZ, Frank Lea, REYES In 1 year [facility] [address], [place] [address] [phone] Additional Instructions: Patient Education Acute Urinary Retention, [...] vaccine, i (more content not included)... Normal [facility] Comment on above: Result Comment: Elec [...] by: Shar Chery MD 12/12/22 Final result [facility] 36on 11-22-2022 36 New Rx sent to [facility] specialty pharmacy. Normal [facility] Documentationon 11-22-2022 Documentation [id number] Aldarom,Earlynn1965 F Date Provider Department Center 11/22/2022 CAROLA AMEZCUA [facility] Family History Problem Relation Age of Onset Hypertension Mother Hypertension Father Family Status - Relation Status Age at Mother Father Reason for Visit and Comments: Specialty Pharmacy Note: tadalafil Prescription [Other] [facility] 36on 11-21-2022 36 Pharmacy called and stated that the [place] will need a prior auth, and he wanted to inform you that the medication is for males. Normal [facility] Telephoneon 11-21-2022 Telephone [id number] Aldarom,Earlynne 1965 F Date Provider Department Center 11/21/2022 JAKOB PARIS [facility] Family History Problem Relation Age of Onset Hypertension Mother Hypertension Father Family Status - Relation Status Age at Mother Father [facility] Office Visiton 11-09-2022 Follow-up visit [id number] [place] Rom,Earlynne 1965 F Date Provider Department Center 11/09/2022 [facility] Problem Relation Age of Onset Hypertension Mother Hypertension Father Family Status - Relation Status Age at Mother Father Level of Service:90757 [place] OFFICE/OUTPATIENT ESTABLISHED MOD MDM 30-39 MIN Normal [facility] CBC AUTO DIFFon 11-06-2022 BASO # 0.1 103/ul Normal 0.0-0.1 [facility] Comment on above: Performed By: #### C BC #### [facility] [address] [place] [address] Dr. Stefany Corral Basophils/100 WBC (Bld) 0.7 % Normal 0.2-2.0 [facility] Comment on above: Performed By: #### C BC #### [facility] [address] [place] [address] Dr. Stefany Corral EO # 0.3 103/ul Normal 0.0-0.7 [facility] Comment on above: Performed By: #### C BC #### [facility] [address] [place] [address] Dr. Stefany Corral Eosinophils/100 WBC (Bld) 3.0 % Normal 0.9-7.0 [facility] Comment on above: Performed By: #### C BC #### [facility] [address] [place] [address] Dr. Stefany Corral Erythrocyte distribution width (RBC) [Ratio] 15.1 % Critically high 11.0-15.0 [facility] Comment on above: Performed By: #### C BC #### [facility] [address] [place] [address] Dr. Stefany Corral Hematocrit (Bld) [Volume fraction] 36.2 % Normal 36.0-48.0 [facility] Comment on above: Performed By: #### C BC #### [facility] [address] [place] [address] Dr. Stefany Corral Hemoglobin (Bld) [Mass/Vol] 12.0 g/dL Normal 12.0-16.0 [facility] Comment on above: Performed By: #### C BC #### [facility] [address] [place] [address] Dr. Stefany Corral IG # 0.03 10e3/ul Normal 0.00-0.03 [facility] Comment on above: Performed By: #### C BC #### [facility] [address] [place] [address] Dr. Stefany Corral IG % 0.3 % Normal 0.0-0.5 [facility] Comment on above: Performed By: #### C BC #### [facility] [address] [place] [address] Dr. Stefany Corral LYMPH # 2.4 103/ul Normal 1.2-3.8 [facility] Comment on above: Performed By: #### C BC #### [facility] [address] [place] [address] Dr. Stefany Corral Lymphocytes/100 WBC (Bld) 27.4 % Normal 20.5-60.0 [facility] Comment on above: Performed By: #### C BC #### [facility] [address] [place] [address] Dr. Stefany Corral MANUAL DIFF REQ NO Normal [facility] Comment on above: Performed By: #### C BC #### [facility] [address] [place] [address] Dr. Stefany Corral MCH (RBC) [Entitic mass] 28.4 pg Normal 26.7-34.0 [facility] Comment on above: Performed By: #### C BC #### [facility] [address] [place] [address] Dr. Stefany Corral MCHC (RBC) [Mass/Vol] 33.1 g/dL Normal 29.9-35.2 [facility] Comment on above: Performed By: #### C BC #### [facility] [address] [place] [address] Dr. Stefany Corral MCV (RBC) [Entitic vol] 85.6 fL Normal 81.0-99.0 [facility] Comment on above: Performed By: #### C BC #### [facility] [address] [place] [address] Dr. Stefany Corral MONO # 1.0 103/ul Critically high 0.3-0.8 [facility] Comment on above: Performed By: #### C BC #### [facility] [address] [place] [address] Dr. Stefany Corral Monocytes/100 WBC (Bld) 11.2 % Normal 1.7-12.0 [facility] Comment on above: Performed By: #### C BC #### [facility] [address] [place] [address] Dr. Stefany Corral NEUT # 5.0 103/ul Normal 1.4-6.5 [facility] Comment on above: Performed By: #### C BC #### [facility] [address] [place] [address] Dr. Stefany Corral Neutrophils/100 WBC (Bld) 57.4 % Normal 43.0-75.0 [facility] Comment on above: Performed By: #### C BC #### [facility] [address] [place] [address] Dr. Stefany Corral Platelet mean volume (Bld) [Entitic vol] 10.0 fL Normal 9.5-13.5 [facility] Comment on above: Performed By: #### C BC #### [facility] [address] [place] [address] Dr. Stefany Corral PLT 321 103/ul Normal 150-450 [facility] Comment on above: Performed By: #### C BC #### [facility] [address] [place] [address] Dr. Stefany Corral RBC 4.23 106/ul Normal 4.20-5.40 [facility] Comment on above: Performed By: #### C BC #### [facility] [address] [place] [address] Dr. Stefany Corral WBC 8.6 103/ul Normal 4.0-11.0 [facility] Comment on above: Performed By: #### C BC #### [facility] [address] [place] [address] Dr. Stefany Corral CREATININEon 11-06-2022 Creatinine [Mass/Vol] 1.14 mg/dL Critically high 0.55-1.02 [facility] Comment on above: Performed By: #### PETRONA MILAN #### [facility] [address] [place] [address] Dr. Stefany Corral EGFR-AF [place] 59 mL/min/1.73m2 Critically low >=60 [facility] Comment on above: Performed By: #### PETRONA MILAN #### [facility] [address] [place] [address] Dr. Stefany Corral EGFR-NON AF [place] 49 mL/min/1.73m2 Critically low >=60 [facility] Comment on above: Performed By: #### PETRONA MILAN #### [facility] [address] [place] [address] Dr. Stefany Corral LIVER PROFILEon 11-06-2022 Albumin [Mass/Vol] 3.5 g/dL Normal 3.4-5.0 [facility] Comment on above: Performed By: #### PETRONA MILAN #### [facility] [address] [place] [address] Dr. Stefany Corral Albumin/Globulin [Mass ratio] 0.9 {ratio} Normal [facility] Comment on above: Performed By: #### PETRONA MILAN #### [facility] [address] [place] [address] Dr. Stefany Corral ALP [Catalytic activity/Vol] 124 U/L Critically high 46-116 [facility] Comment on above: Performed By: #### CHELSIE MILANA #### [facility] [address] [place] [address] Dr. Stefany Corral ALT [Catalytic activity/Vol] 18 U/L Normal 14-59 [facility] Comment on above: Performed By: #### PETRONA MILAN #### [facility] [address] [place] [address] Dr. Stefany Corral AST [Catalytic activity/Vol] 16 U/L Normal 15-37 [facility] Comment on above: Performed By: #### CHELSIE MILANA #### [facility] [address] [place] [address] Dr. Stefany Corral BILI, CONJUGATED 0.0 mg/dL Normal 0.0-0.2 [facility] Comment on above: Performed By: #### L PETRONA BETHEA #### [facility] [address] [place] [address] Dr. Stefany Corral Bilirubin [Mass/Vol] 0.2 mg/dL Normal 0.2-1.0 [facility] Comment on above: Performed By: #### L NEEMA CREA #### [facility] [address] [place] [address] Dr. Stefany Corral Globulin (S) [Mass/Vol] 4.0 g/dL Normal [facility] Comment on above: Performed By: #### L CHELSIE BETHEAA #### [facility] [address] [place] [address] Dr. Stefany Corral Protein [Mass/Vol] 7.5 g/dL Normal 6.4-8.2 [facility] Comment on above: Performed By: #### L PETRONA BETHEA #### [facility] [address] [place] [address] Dr. Stefany oCrral [facility] SED RATE 19 mm/hr Normal <=30 [facility] Comment on above: Performed By: #### S EDR #### [facility] [address] [place] [address] Dr. Stefany Corral BASIC METABOLIC PANELon 03-0 Anion gap [Moles/Vol] 11 mmol/L Normal 7-20 [facility] Comment on above: Performed By: #### L AB15 ####[facility] [place] [address] Calcium [Mass/Vol] 9.9 mg/dL Normal 8.6-10.3 [facility] Comment on above: Performed By: #### L AB15 ####[facility] [place] [address] Chloride [Moles/Vol] 103 mmol/L Normal 98-107 [facility] Comment on above: Performed By: #### L AB15 ####[facility] ([facility])[address] [place] [address] CO2 [Moles/Vol] 27 mmol/L Normal 21-31 [facility] Comment on above: Performed By: #### L AB15 ####[facility] ([facility])[address] [place] [address] Creatinine [Mass/Vol] 1.44 mg/dL High 0.60-1.20 [facility] Comment on above: Performed By: #### L AB15 ####[facility] ([facility])[address] [place] [address] GLOMERULAR FILTRATION RATE ML/MIN/1.73 SQ M.PREDICTED 42.2 mL/min/1.73m*2 Low >60.0 [facility] Comment on above: Result Comment: [facility]???s estimated glomerular filtration rate (eGFR) will no [...] of individuals. Performed By: #### L AB15 ####[facility] ([facility])[address] [place] [address] Glucose [Mass/Vol] 101 mg/dL High 70-100 [facility] Comment on above: Performed By: #### L AB15 ####[facility] ([facility])[address] [place] [address] Potassium [Moles/Vol] 3.8 mmol/L Normal 3.5-5.1 [facility] Comment on above: Performed By: #### L AB15 ####[facility] [place] [address] Sodium [Moles/Vol] 137 mmol/L Normal 136-145 [facility] Comment on above: Performed By: #### L AB15 ####[facility] [place] [address] Urea nitrogen [Mass/Vol] 30 mg/dL High 7-25 [facility] Comment on above: Performed By: #### L AB15 ####[facility] [place] [address] UREA NITROGEN/CREATININE (MASS RATIO) IN SER/PLAS 20.8 Normal [facility] Comment on above: Performed By: #### L AB15 ####[facility] ([facility])[address] [place] [address] CBCon 10-03-2022 Erythrocyte distribution width (RBC) [Ratio] 14.6 % Normal 11.5-15.0 [facility] Comment on above: Performed By: #### L [id number] ####[facility] [place] [address] ERYTHROCYTE MEAN CORPUSCULAR HEMOGLOBIN CONCENTRATION (G/DL) BY AUTOMATED 33.6 g/dL Normal 32.0-35.0 [facility] Comment on above: Performed By: #### L [id number] ####[facility] [place] [address] Hematocrit (Bld) [Volume fraction] 36.9 % Normal 36.0-48.0 [facility] Comment on above: Performed By: #### L [id number] ####[facility] [place], [place] [address] Hemoglobin (Bld) [Mass/Vol] 12.4 g/dL Normal 12.0-15.0 [facility] Comment on above: Performed By: #### L [id number] ####[facility] [place] [address] MCH (RBC) [Entitic mass] 28.0 pg Normal 27.0-33.0 [facility] Comment on above: Performed By: #### L [id number] ####[facility] ([facility])[address] [place] [address] MCV (RBC) [Entitic vol] 83.3 fL Normal 82.0-98.0 [facility] Comment on above: Performed By: #### L [id number] ####[facility] ([facility])[address] [place] [address] PLATELETS (10*3/UL) IN BLOOD AUTOMATED COUNT 332 10*3/uL Normal 150-400 [facility] Comment on above: Performed By: #### L [id number] ####[facility] ([facility])[address] [place] [address] RBC (Bld) [#/Vol] 4.43 10*6/uL Normal 3.80-5.00 [facility] Comment on above: Performed By: #### L [id number] ####[facility] ([facility])[address] [place] [address] WBC (Bld) [#/Vol] 11.04 10*3/uL High 4.00-10.60 [facility] Comment on above: Performed By: #### L [id number] ####[facility] ([facility])[address] [place] [address] HPon 10-03-2022 HP - Attestation signed by Meghan Ortiz MD at 10/03/2022 9:00 AM H [...] understands these risks and wishes to proceed. Meghan Ortiz MD H&P reviewed. The patient was examined and there are no changes to the H&P. Normal [facility] Letter (Out)on 09-24-2022 Letter (Out) [id number] Sylvia Garay 1965 F Date Provider Department Center 09/24/2022 None-None [facility] Family History Problem Relation Age of Onset Hypertension Mother Hypertension Father Family Status - Relation Status Age at Mother Father Normal [facility] HPon 09-21-2022 HP Subjective Earlynne Michelle Sheikh [...] THE MORNING, Disp: , Rfl: HYDROcodone-acetamino phen ([place]) 5-325 mg tablet, hydrocodone 5 mg-acetaminophen 325 [...] disease with systemic sclerosis per rheumatology Normal [facility] Office Visiton 09-21-2022 Follow-up visit [id number] Michelle SheikhSylvia 1965 F Date Provider Department Center 09/21/2022 Mia-JAKOB PRUITT [facility] Family History Problem Relation Age of Onset Hypertension Mother Hypertension Father Family Status - Relation Status Age at Mother Father Level of Service:04516 [place] OFFICE/OUTPATIENT ESTABLISHED MOD MDM 30-39 MIN Reason for Visit and Comments: Follow-up [095274] - Echo done today. Patient states there is not problems or concerns Normal [facility] CBC AUTO DIFFon 09-11-2022 BASO # 0.1 103/ul Normal 0.0-0.1 [facility] Comment on above: Performed By: #### C BC #### [facility] [address] [address] [address] Stefany Corral Basophils/100 WBC (Bld) 0.6 % Normal 0.2-2.0 [facility] Comment on above: Performed By: #### C BC #### [facility] [address] [place] [address] Dr. Stefany Corral EO # 0.1 103/ul Normal 0.0-0.7 [facility] Comment on above: Performed By: #### C BC #### [facility] [address] [place] [address] Dr. Stefany Corral Eosinophils/100 WBC (Bld) 1.4 % Normal 0.9-7.0 [facility] Comment on above: Performed By: #### C BC #### [facility] [address] [place] [address] Dr. Stefany Corral Erythrocyte distribution width (RBC) [Ratio] 13.7 % Normal 11.0-15.0 [facility] Comment on above: Performed By: #### C BC #### [facility] [address] [place] [address] Dr. Stefany Corral Hematocrit (Bld) [Volume fraction] 40.2 % Normal 36.0-48.0 [facility] Comment on above: Performed By: #### C BC #### [facility] [address] [place] [address] Dr. Stefany Corral Hemoglobin (Bld) [Mass/Vol] 13.4 g/dL Normal 12.0-16.0 [facility] Comment on above: Performed By: #### C BC #### [facility] [address] [place] [address] Dr. Stefany Corral IG # 0.03 10e3/ul Normal 0.00-0.03 [facility] Comment on above: Performed By: #### C BC #### [facility] [address] [place] [address] Dr. Stefany Corral IG % 0.3 % Normal 0.0-0.5 [facility] Comment on above: Performed By: #### C BC #### [facility] [address] [place] [address] Dr. Stefany Corral LYMPH # 2.4 103/ul Normal 1.2-3.8 [facility] Comment on above: Performed By: #### C BC #### [facility] [address] [place] [address] Dr. Stefany Corral Lymphocytes/100 WBC (Bld) 27.4 % Normal 20.5-60.0 [facility] Comment on above: Performed By: #### C BC #### [facility] [address] [place] [address] Dr. Stefany Corral MANUAL DIFF REQ NO Normal [facility] Comment on above: Performed By: #### C BC #### [facility] [address] [place] [address] Dr. Stefany Corral MCH (RBC) [Entitic mass] 27.5 pg Normal 26.7-34.0 [facility] Comment on above: Performed By: #### C BC #### [facility] [address] [place] [address] Dr. Stefany Corral MCHC (RBC) [Mass/Vol] 33.3 g/dL Normal 29.9-35.2 [facility] Comment on above: Performed By: #### C BC #### [facility] [address] [place] [address] Dr. Stefany Corral MCV (RBC) [Entitic vol] 82.4 fL Normal 81.0-99.0 [facility] Comment on above: Performed By: #### C BC #### [facility] [address] [place] [address] Dr. Stefany Corral MONO # 0.8 103/ul Normal 0.3-0.8 [facility] Comment on above: Performed By: #### C BC #### [facility] [address] [place] [address] Dr. Stefany Corral Monocytes/100 WBC (Bld) 8.6 % Normal 1.7-12.0 [facility] Comment on above: Performed By: #### C BC #### [facility] [address] [place] [address] Dr. Stefany Corral NEUT # 5.5 103/ul Normal 1.4-6.5 [facility] Comment on above: Performed By: #### C BC #### [facility] [address] [place] [address] Dr. Stefany Corral Neutrophils/100 WBC (Bld) 61.7 % Normal 43.0-75.0 [facility] Comment on above: Performed By: #### C BC #### [facility] [address] [place] [address] Dr. Stefany Corral Platelet mean volume (Bld) [Entitic vol] 10.2 fL Normal 9.5-13.5 [facility] Comment on above: Performed By: #### C BC #### [facility] [address] [place] [address] Dr. Stefany Corral PLT 326 103/ul Normal 150-450 [facility] Comment on above: Performed By: #### C BC #### [facility] [address] [place] [address] Dr. Stefany Corral RBC 4.88 106/ul Normal 4.20-5.40 [facility] Comment on above: Performed By: #### C BC #### [facility] [address] [place] [address] Dr. Stefany Corral WBC 8.9 103/ul Normal 4.0-11.0 [facility] Comment on above: Performed By: #### C BC #### [facility] [address] [place] [address] Dr. Stefany Corral CREATININEon 09-11-2022 Creatinine [Mass/Vol] 1.34 mg/dL Critically high 0.55-1.02 [facility] Comment on above: Performed By: #### PETRONA MILAN #### [facility] [address] [place] [address] Dr. Stefany Corral EGFR-AF [place] 49 mL/min/1.73m2 Critically low >=60 [facility] Comment on above: Performed By: #### PETRONA MILAN #### [facility] [address] [place] [address] Dr. Stefany Corral EGFR-NON AF [place] 41 mL/min/1.73m2 Critically low >=60 [facility] Comment on above: Performed By: #### L NEEMA CREA #### [facility] [address] [place] [address] Dr. Stefany Corral LIVER PROFILEon 09-11-2022 Albumin [Mass/Vol] 3.8 g/dL Normal 3.4-5.0 [facility] Comment on above: Performed By: #### L NEEMA CREA #### [facility] [address] [place] [address] Dr. Stefany Corral Albumin/Globulin [Mass ratio] 0.9 {ratio} Normal [facility] Comment on above: Performed By: #### L NEEMA CREA #### [facility] [address] [place] [address] Dr. Stefany Corral ALP [Catalytic activity/Vol] 114 U/L Normal 46-116 [facility] Comment on above: Performed By: #### L NEEMA CREA #### [facility] [address] [place] [address] Dr. Stefany Corral ALT [Catalytic activity/Vol] 12 U/L Critically low 14-59 [facility] Comment on above: Performed By: #### Pawel BETHEA CREA #### [facility] [address] [place] [address] Dr. Stefany Corral AST [Catalytic activity/Vol] 17 U/L Normal 15-37 [facility] Comment on above: Performed By: #### L NEEMA CREA #### [facility] [address] [place] [address] Dr. Stefany Corral BILI, CONJUGATED 0.0 mg/dL Normal 0.0-0.2 [facility] Comment on above: Performed By: #### L NEEMA CREA #### [facility] [address] [place] [address] Dr. Stefany Corral Bilirubin [Mass/Vol] 0.2 mg/dL Normal 0.2-1.0 [facility] Comment on above: Performed By: #### L NEEMA CREA #### [facility] [address] [place] [address] Dr. Stefany Corral Globulin (S) [Mass/Vol] 4.3 g/dL Normal [facility] Comment on above: Performed By: #### L PETRONA BETHEA #### [facility] [address] [address] [address] Stefany Corral Protein [Mass/Vol] 8.1 g/dL Normal 6.4-8.2 [facility] Comment on above: Performed By: #### L PETRONA BETHEA #### [facility] [address] [address] [address] Stefany Corral SED RATE WESTERGRENon 2022 SED RATE 79 mm/hr Critically high <=30 [facility] Comment on above: Performed By: #### S EDR #### [facility] [address] [address] [address] Stefany Corral XR chest 2V*on 08-13-2022 XR chest 2V* [facility] Main [place] [address] [place] [address] XRay Report Signed Patient: Sylvia Bass MR#: [id number] : 1965 Acct:[id number] Age/Sex: 57 / F ADM Date: 08/13/22 Loc: XD Room: Type: [facility] Attending Dr: Giacomo Benitez DPM Copies to: [...] Devonte Platt M.D.08/13/2022 2:42 PM Dictation Location: [place] [address] Transcribed By: [facility] 08/13/22 1442 Dictated By: Devonte Platt DO 08/13/22 1441 Signed By: 08/13/22 1442 [facility] Basic Metabolic Panelon 12-2 Anion gap [Moles/Vol] 15.3 mmol/L High 6.0-15.0 [facility] Comment on above: Order Comment: PT IS NON FASTING Reason for Exam HAV (hallux abducto valgus), left;Metatarsalgia of right michelet Performed By: #### C BC, BMP #### [facility] [address] Calcium [Mass/Vol] 9.2 mg/dL Normal 8.2-10.2 [facility] Comment on above: Order Comment: PT IS NON FASTING Reason for Exam HAV (hallux abducto valgus), left;Metatarsalgia of right michelet Result Comment: PERF ORMED BY: [facility] [address] [place] [address] PATHOLOGIST [employer] JESUSITA NICHOLE M.D. Performed By: #### C BC, BMP #### [facility] [address] Chloride [Moles/Vol] 98 mmol/L Normal 95-114 [facility] Comment on above: Order Comment: PT IS NON FASTING Reason for Exam HAV (hallux abducto valgus), left;Metatarsalgia of right michelet Performed By: #### C BC, BMP #### [facility] [address] CO2 [Moles/Vol] 23.6 mmol/L Normal 22.0-30.0 [facility] Comment on above: Order Comment: PT IS NON FASTING Reason for Exam HAV (hallux abducto valgus), left;Metatarsalgia of right michelet Performed By: #### C BC, BMP #### [facility] [address] Creatinine [Mass/Vol] 1.48 mg/dL High 0.44-1.03 [facility] Comment on above: Order Comment: PT IS NON FASTING Reason for Exam HAV (hallux abducto valgus), left;Metatarsalgia of right michelet Performed By: #### C BC, BMP #### [facility] [address] [place] [id number] [facility] Estimated GFR ( Shandra 44 [facility] Comment on above: Order Comment: PT IS NON FASTING Reason for Exam HAV (hallux abducto valgus), left;Metatarsalgia of right michelet Result Comment: GFR estimated reference range: According to KDOQI guidelines, <60 ml/min/1.73m2 is sufficient to diagnose a patient with chronic kidney disease. Performed By: #### C BC, BMP #### [facility] [address] Estimated GFR (Non- Am 36 [facility] Comment on above: Order Comment: PT IS NON FASTING Reason for Exam HAV (hallux abducto valgus), left;Metatarsalgia of right michelet Performed By: #### C BC, BMP #### [address] Glucose [Mass/Vol] 95 mg/dL Normal 70-100 [facility] Comment on above: Order Comment: PT IS NON FASTING Reason for Exam HAV (hallux abducto valgus), left;Metatarsalgia of right michelet Result Comment: [facility] Glucose Reference Range is dependent on time and content of last meal. Glucose of more than 200 mg/dL in a nonstressed, ambulatory subject supports the diagnosis of Diabetes Mellitus. ADA recommended reference range Performed By: #### C BC, BMP #### [address] Potassium [Moles/Vol] 3.9 mmol/L Normal 3.5-5.1 [facility] Comment on above: Order Comment: PT IS NON FASTING Reason for Exam HAV (hallux abducto valgus), left;Metatarsalgia of right michelet Performed By: #### C BC, BMP #### [facility] [address] [place] [id number] [facility] Sodium [Moles/Vol] 133 mmol/L Low 136-146 [facility] Comment on above: Order Comment: PT IS NON FASTING Reason for Exam HAV (hallux abducto valgus), left;Metatarsalgia of right michelet Performed By: #### C BC, BMP #### [facility] [address] Urea nitrogen [Mass/Vol] 29 mg/dL High 9-23 [facility] Comment on above: Order Comment: PT IS NON FASTING Reason for Exam HAV (hallux abducto valgus), left;Metatarsalgia of right michelet Performed By: #### C BC, BMP #### [facility] [address] Basophils Auto (Bld) [#/Vol] Ordered By: Josefa Martinez on 07-25-2022 Basophils (Bld) [#/Vol] 0.0 10*3/uL 0.0-0.2 [facility] Basophils/100 WBC Auto (Bld) Ordered By: Josefa Martinez on 07-25-2022 Basophils/100 WBC (Bld) 0.4 % . [facility] Complete Blood Count Auto Di ffon 07-25-2022 Basophils (Bld) [#/Vol] 0.0 10*3/uL Normal 0.0-0.2 [facility] Comment on above: Order Comment: Reaso n for Exam HAV (hallux abducto valgus), left;Metatarsalgia of right michelet Result Comment: PERF ORMED BY: [place] [address] PATHOLOGIST [employer] JESUSITA NICHOLE M.D. Performed By: #### C BC, BMP #### [address] Basophils/100 WBC (Bld) 0.4 % Normal . [facility] Comment on above: Order Comment: Reaso n for Exam HAV (hallux abducto valgus), left;Metatarsalgia of right michelet Performed By: #### C BC, BMP #### [facility] [address] Eosinophils (Bld) [#/Vol] 0.5 10*3/uL High 0.0-0.45 [facility] Comment on above: Order Comment: Reaso n for Exam HAV (hallux abducto valgus), left;Metatarsalgia of right michelet Performed By: #### C BC, BMP #### [facility] [address] [place] [address] [place] Eosinophils/100 WBC (Bld) 6.1 % Normal . [facility] Comment on above: Order Comment: Reaso n for Exam HAV (hallux abducto valgus), left;Metatarsalgia of right michelet Performed By: #### C BC, BMP #### [address] Erythrocyte distribution width (RBC) [Ratio] 14.9 % Normal 11.9-15.3 [facility] Comment on above: Order Comment: Reaso n for Exam HAV (hallux abducto valgus), left;Metatarsalgia of right michelet Performed By: #### C BC, BMP #### [address] Hematocrit (Bld) [Volume fraction] 38.3 % Normal 34.0-46.4 [facility] Comment on above: Order Comment: Reaso n for Exam HAV (hallux abducto valgus), left;Metatarsalgia of right michelet Performed By: #### C BC, BMP #### [address] Hemoglobin (Bld) [Mass/Vol] 12.5 g/dL Normal 11.8-15.4 [facility] Comment on above: Order Comment: Reaso n for Exam HAV (hallux abducto valgus), left;Metatarsalgia of right michelet Performed By: #### C BC, BMP #### [place] [address] [place] Lymphocytes (Bld) [#/Vol] 2.6 10*3/uL Normal 1.00-4.8 [facility] Comment on above: Order Comment: Reaso n for Exam HAV (hallux abducto valgus), left;Metatarsalgia of right michelet Performed By: #### C BC, BMP #### [place] [address] [place] Lymphocytes/100 WBC (Bld) 32.8 % Normal . [facility] Comment on above: Order Comment: Reaso n for Exam HAV (hallux abducto valgus), left;Metatarsalgia of right michelet Performed By: #### C BC, BMP #### [address] MCH (RBC) [Entitic mass] 27.1 pg Normal 24.7-34.3 [facility] Comment on above: Order Comment: Reaso n for Exam HAV (hallux abducto valgus), left;Metatarsalgia of right michelet Performed By: #### C BC, BMP #### [address] MCV (RBC) [Entitic vol] 83.2 fL Normal 80-100 [facility] Comment on above: Order Comment: Reaso n for Exam HAV (hallux abducto valgus), left;Metatarsalgia of right michelet Performed By: #### C BC, BMP #### [address] Mean Corpuscular HGB Conc 32.5 g/dL Normal 32.0-35.0 [facility] Comment on above: Order Comment: Reaso n for Exam HAV (hallux abducto valgus), left;Metatarsalgia of right michelet Performed By: #### C BC, BMP #### [address] Monocytes (Bld) [#/Vol] 1.0 10*3/uL High 0.0-0.8 [facility] Comment on above: Order Comment: Reaso n for Exam HAV (hallux abducto valgus), left;Metatarsalgia of right michelet Performed By: #### C BC, BMP #### [address] Monocytes/100 WBC (Bld) 12.5 % Normal . [facility] Comment on above: Order Comment: Reaso n for Exam HAV (hallux abducto valgus), left;Metatarsalgia of right michelet Performed By: #### C BC, BMP #### [facility] [address] Neutrophils (Bld) [#/Vol] 3.8 10*3/uL Normal 1.8-7.7 [facility] Comment on above: Order Comment: Reaso n for Exam HAV (hallux abducto valgus), left;Metatarsalgia of right michelet Performed By: #### C BC, BMP #### [facility] [address] Neutrophils/100 WBC (Bld) 48.2 % Normal . [facility] Comment on above: Order Comment: Reaso n for Exam HAV (hallux abducto valgus), left;Metatarsalgia of right michelet Performed By: #### C BC, BMP #### [address] NRBC% 0.1 /100{WBC} Normal 0-0.5 [facility] Comment on above: Order Comment: Reaso n for Exam HAV (hallux abducto valgus), left;Metatarsalgia of right michelet Performed By: #### C BC, BMP #### [address] Platelet mean volume (Bld) [Entitic vol] 8.6 fL Normal 6.3-10.7 [facility] Comment on above: Order Comment: Reaso n for Exam HAV (hallux abducto valgus), left;Metatarsalgia of right michelet Performed By: #### C BC, BMP #### [address] Platelets (Bld) [#/Vol] 257 10*3/uL Normal 150-450 [facility] Comment on above: Order Comment: Reaso n for Exam HAV (hallux abducto valgus), left;Metatarsalgia of right michelet Performed By: #### C BC, BMP #### [address] RBC (Bld) [#/Vol] 4.60 10*6/uL Normal 3.60-5.00 [facility] Comment on above: Order Comment: Reaso n for Exam HAV (hallux abducto valgus), left;Metatarsalgia of right michelet Performed By: #### C BC, BMP #### [facility] [address] WBC (Bld) [#/Vol] 7.9 10*3/uL Normal 3.8-11.6 [facility] Comment on above: Order Comment: Reaso n for Exam HAV (hallux abducto valgus), left;Metatarsalgia of right michelet Performed By: #### C BC, BMP #### [facility] [address] Creatinine and Glomerular fi ltration rate.predicted panel (S/P/Bld)Ordered By: Josefa Martinez on 07-25-2022 Creatinine [Mass/Vol] 1.48 mg/dL 0.44-1.03 [facility] ECG 12 lead ECGon 07-25-2022 ECG 12 lead ECG [facility] Main [place] [address] [place] [address] Electrocardiograph Report Signed Patient: Sylvia Bass MR#: [id number] : 1965 Acct:[id number] Age/Sex: 57 / F ADM Date: 07/25/22 Loc: Room: Type: [facility] Attending Dr: Josefa Martinez MD [...] ([id number]) on 07/25/2022 4:25:20 PM Referred By: RUGEN MICHELLE Electronically Signed By:JAN BALDERRAMA MD Transcribed By: MUS Signed By Jan Balderrama MD 1 09/25/21 1625 Normal [facility] Eosinophils Auto (Bld) [#/Vo l]Ordered By: Josefa Martinez on 07-25-2022 Eosinophils (Bld) [#/Vol] 0.5 10*3/uL 0.0-0.45 [facility] Eosinophils/100 WBC Auto (Bl d)Ordered By: Josefa Martinez on 07-25-2022 Eosinophils/100 WBC (Bld) 6.1 % . [facility] Erythrocyte distribution wid th Auto (RBC) [Ratio]Ordered By: Josefa Martinez on 07-25-2022 Erythrocyte distribution width (RBC) [Ratio] 14.9 % 11.9-15.3 [facility] Estimated glomerular filtrat ion rate (GFR) non- AmericanOrdered By: Josefa Martinez on 07-25-2022 GFR/1.73 sq M.predicted among non-blacks MDRD (S/P/Bld) [Vol rate/Area] 36 mL/Min [facility] Hematocrit Auto (Bld) [Volum e fraction]Ordered By: Josefa Martinez on 07-25-2022 Hematocrit (Bld) [Volume fraction] 38.3 % 34.0-46.4 [facility] Hemoglobin [Mass/volume] in BloodOrdered By: Josefa Martinez on 07-25-2022 Hemoglobin (Bld) [Mass/Vol] 12.5 g/dL 11.8-15.4 [facility] Leukocytes [#/volume] correc brendan for nucleated erythrocytes in Blood by Automated counOrdered By: Josefa Martinez on 07-25-2022 WBC corrected for nucl RBC Auto (Bld) [#/Vol] 7.9 10*3/uL 3.8-11.6 [facility] Lymphocytes Auto (Bld) [#/Vo l]Ordered By: Josefa Martinez on 07-25-2022 Lymphocytes (Bld) [#/Vol] 2.6 10*3/uL 1.00-4.8 [facility] Lymphocytes/100 WBC Auto (Bl d)Ordered By: Josefa Martinez on 07-25-2022 Lymphocytes/100 WBC (Bld) 32.8 % . [facility] MCH Auto (RBC) [Entitic mass ]Ordered By: Josefa Martinez on 07-25-2022 MCH (RBC) [Entitic mass] 27.1 pg 24.7-34.3 [facility] MCHC Auto (RBC) [Mass/Vol]Or dered By: Josefa Martinez on 07-25-2022 MCHC (RBC) [Mass/Vol] 32.5 g/dL 32.0-35.[address] [facility] MCV Auto (RBC) [Entitic vol] Ordered By: Josefa Martinez on 07-25-2022 MCV (RBC) [Entitic vol] 83.2 fL 80-100 [facility] Monocytes Auto (Bld) [#/Vol] Ordered By: Josefa Martinez on 07-25-2022 Monocytes (Bld) [#/Vol] 1.0 10*3/uL 0.0-0.8 [facility] Monocytes/100 WBC Auto (Bld) Ordered By: Josefa Martinez on 07-25-2022 Monocytes/100 WBC (Bld) 12.5 % . [facility] Neutrophils Auto (Bld) [#/Vo l]Ordered By: Josefa Martinez on 07-25-2022 Neutrophils (Bld) [#/Vol] 3.8 10*3/uL 1.8-7.7 [facility] Neutrophils/100 WBC Auto (Bl d)Ordered By: Josefa Martinez on 07-25-2022 Neutrophils/100 WBC (Bld) 48.2 % . [facility] No Panel InformationOrdered By: Josefa Martinez on 07-25-2022 Estimated GFR () 44 mL/Min [facility] Comment on above: GFR estimated refere nce range: According to KDOQI guidelines, <60 ml/min/1.73m2 is sufficient to diagnose a patient with chronic kidney disease. Pharmacy Creatinine Clearance (Chem N/A [facility] Nucleated erythrocytes [Pres ence] in Blood by Automated countOrdered By: Josefa Martinez on 07-25-2022 Nucleated RBC Auto Ql (Bld) 0.1 /100{WBC} 0-0.5 [facility] Platelet mean volume Auto (B ld) [Entitic vol]Ordered By: Josefa Martinez on 07-25-2022 Platelet mean volume (Bld) [Entitic vol] 8.6 fL 6.3-10.7 [facility] Platelets Auto (Bld) [#/Vol] Ordered By: Josefa Martinez on 07-25-2022 Platelets (Bld) [#/Vol] 257 10*3/uL 150-450 [facility] RBC Auto (Bld) [#/Vol]Ordere d By: Josefa Martinez on 07-25-2022 RBC (Bld) [#/Vol] 4.60 10*6/uL 3.60-5.00 [facility] Serum or plasma anion gap de terminationOrdered By: Josefa Martinez on 07-25-2022 Anion gap [Moles/Vol] 15.3 mmol/L 6.0-15.0 [facility] Serum or plasma calcium enma urement (mass/volume)Ordered By: Josefa Martinez on 07-25-2022 Calcium [Mass/Vol] 9.2 mg/dL 8.2-10.2 [facility] Serum or plasma chloride horace surement (moles/volume)Ordered By: Josefa Martinez on 07-25-2022 Chloride [Moles/Vol] 98 mmol/L 95-114 [facility] Serum or plasma glucose enma urement (mass/volume)Ordered By: Josefa Martinez on 07-25-2022 Glucose [Mass/Vol] 95 mg/dL 70-100 [facility] Comment on above: ADA recommended refe rence rangeRandom Glucose Reference Range is dependent on time and content of last meal. Glucose of more than 200 mg/dL in a nonstressed, ambulatory subject supports the diagnosis of Diabetes Mellitus. Serum or plasma potassium me asurement (moles/volume)Ordered By: Josefa Martinez on 07-25-2022 Potassium [Moles/Vol] 3.9 mmol/L 3.5-5.1 [facility] Serum or plasma sodium measu rement (moles/volume)Ordered By: Josefa Martinez on 07-25-2022 Sodium [Moles/Vol] 133 mmol/L 136-146 [facility] Serum or plasma total carbon dioxide measurement (moles/volume)Ordered By: Josefa Martinez on 07-25-2022 CO2 [Moles/Vol] 23.6 mmol/L 22.0-30.0 [facility] Serum or plasma urea nitroge n measurement (mass/volume)Ordered By: Josefa Martinez on 07-25-2022 Urea nitrogen [Mass/Vol] 29 mg/dL 04-20 [facility] WBC Auto (Bld) [#/Vol]Ordere d By: Josefa Martinez on 07-25-2022 WBC (Bld) [#/Vol] 7.9 10*3/uL 3.8-11.6 [facility] CBC with Auto Differentialon 06-11-2022 Absolute Eos # 0.11 [facility] Absolute Immature Granulocyte 0.00 [facility] Absolute Lymph # 4.52 High [facility] Absolute Whatcom # 0.95 [facility] Atypical Lymphocytes 2 % [facility] Atypical Lymphocytes Absolute 0.21 k/uL [facility] Basophils (Bld) [#/Vol] 0.11 10*3/uL [facility] Basophils/100 WBC (Bld) 1 % 0 - 2 % [facility] Eosinophils/100 WBC (Bld) 1 % 1 - 4 % [facility] Hematocrit (Bld) [Volume fraction] 35.9 % Low 36.3 - 47.1 % [facility] Hemoglobin (Bld) [Mass/Vol] 11.4 g/dL Low 11.9 - 15.1 g/dL [facility] Immature granulocytes/100 WBC (Bld) 0 % 0 [facility] Interpretation and review of laboratory results Abnormal [facility] Lymphocytes/100 WBC (Bld) 43 % 24 - 43 % [facility] MCH (RBC) [Entitic mass] 27.2 pg 25.2 - 33.5 pg [facility] MCHC (RBC) [Mass/Vol] 31.8 g/dL 28.4 - 34.8 g/dL [facility] MCV (RBC) [Entitic vol] 85.7 fL 82.6 - 102.9 fL [facility] Monocytes/100 WBC (Bld) 9 % 3 - 12 % B [facility] Morphology William (Bld) [Interp] Platelet scan shows Normal Platelets [facility] NRBC Automated 0.0 0.0 per 100 WBC [facility] Platelet distribution width (Bld) [Ratio] 13.4 % 11.8 - 14.4 % [facility] Platelet mean volume (Bld) [Entitic vol] 10.3 fL 8.1 - 13.5 fL [facility] Platelets (Bld) [#/Vol] 335 10*3/uL [facility] RBC (Bld) [#/Vol] 4.19 10*6/uL 3.95 - 5.1 1 m/uL [facility] Segmented neutrophils/100 WBC (Bld) 44 % 36 - 65 % [facility] Segs Absolute 4.60 [facility] WBC (Bld) [#/Vol] 10.5 10*3/uL [facility] CBC with Diffon 06-11-2022 Abs. Atypical Lymphs 0.21 k/uL Normal [facility] Comment on above: Performed By: #### C DP, LIVP, CREG, SED #### [facility] [address] [place] [address] [place] [address] [employer] Packaging Consultant: Chip Andino MD Abs. Basophil 0.11 k/uL Normal 0.0-0.2 [facility] Comment on above: Performed By: #### C DP, LIVP, CREG, SED #### [facility] [address] [place], [place] [id number] [employer] Consultant: Chip Andino MD Abs.Imm.Granulocyte 0.00 k/uL Normal 0.00-0.30 [facility] Comment on above: Performed By: #### C DP, LIVP, CREG, SED #### [facility] [address] [place], [place] [id number] [employer] Consultant: Chip Andino MD Abs.Neutrophil (Seg) 4.60 k/uL Normal 1.50-8.10 [facility] Comment on above: Performed By: #### C DP, LIVP, CREG, SED #### [facility] [address] [place] [address] [place] [address] [employer] Consultant: Chip Andino MD Atypical Lymphs 2 % Normal [facility] Comment on above: Performed By: #### C DP, LIVP, CREG, SED #### [address] [place] [address] [employer]aging Consultant: Chip Andino MD Basophils/100 WBC (Bld) 1 % Normal 0-2 [facility] Comment on above: Performed By: #### C DP, LIVP, CREG, SED #### [address] [place] [address] [employer] Consultant: Chip Andino MD Eosinophils (Bld) [#/Vol] 0.11 10*3/uL Normal 0.00-0.44 [facility] Comment on above: Performed By: #### C DP, LIVP, CREG, SED #### [address] [place], [facility]83 [employer] Consultant: Chip Andino MD Eosinophils/100 WBC (Bld) 1 % Normal 1-4 [facility] Comment on above: Performed By: #### C DP, LIVP, CREG, SED #### [address] [place], [place] [address] [employer] Consultant: Chip Andino MD Immature granulocytes/100 WBC (Bld) 0 % Normal 0 [facility] Comment on above: Performed By: #### C DP, LIVP, CREG, SED #### [address] [place], [facility]83 [employer] Consultant: Chip Andino MD Lymphocytes (Bld) [#/Vol] 4.52 10*3/uL High 1.10-3.70 [facility] Comment on above: Performed By: #### C DP, LIVP, CREG, SED #### [facility] [address] [place] [address] [employer] Consultant: Chip Andino MD Lymphocytes/100 WBC (Bld) 43 % Normal 24-43 [facility] Comment on above: Performed By: #### C DP, LIVP, CREG, SED #### [facility] [address] [place] [address] [employer]aging Consultant: Chip Andino MD Monocytes (Bld) [#/Vol] 0.95 10*3/uL Normal 0.10-1.20 [facility] Comment on above: Performed By: #### C DP, LIVP, CREG, SED #### [address] [place], [place] [address] [employer] Consultant: Chip Andino MD Monocytes/100 WBC (Bld) 9 % Normal 3-12 [facility] Comment on above: Performed By: #### C DP, LIVP, CREG, SED #### [address] [place] [address] [employer] Consultant: Chip Andino MD Morphology William (Bld) [Interp] Platelet scan shows Normal Platelets Normal [facility] Comment on above: Performed By: #### C DP, LIVP, CREG, SED #### [address] [place] [address] [employer]aging Consultant: Chip Andino MD Neutrophil (Seg) 44 % Normal 36-65 [facility] Comment on above: Performed By: #### C DP, LIVP, CREG, SED #### [facility] [address] [place], [place] [id number] [employer]aging Consultant: Chip Andino MD Erythrocyte distribution width (RBC) [Ratio] 13.4 % Normal 11.8-14.4 [facility] Comment on above: Performed By: #### C DP, LIVP, CREG, SED #### [address] [place] [id number] [employer] Packaging Consultant: Chip Andino MD Hematocrit (Bld) [Volume fraction] 35.9 % Low 36.3-47.1 [facility] Comment on above: Performed By: #### C DP, LIVP, CREG, SED #### [address] [place] [address] [employer] Consultant: Chip Andino MD Hemoglobin (Bld) [Mass/Vol] 11.4 g/dL Low 11.9-15.1 [facility] Comment on above: Performed By: #### C DP, LIVP, CREG, SED #### [address] [place], [place] [address] [employer] Consultant: Chip Andino MD MCH (RBC) [Entitic mass] 27.2 pg Normal 25.2-33.5 [facility] Comment on above: Performed By: #### C DP, LIVP, CREG, SED #### [address] [place] [id number] [employer]aging Consultant: Chip Andino MD MCHC (RBC) [Mass/Vol] 31.8 g/dL Normal 28.4-34.8 [facility] Comment on above: Performed By: #### C DP, LIVP, CREG, SED #### [address] [place], [facility]83 [employer] Consultant: Chip Andino MD MCV (RBC) [Entitic vol] 85.7 fL Normal 82.6-102.9 [facility] Comment on above: Performed By: #### C DP, LIVP, CREG, SED #### [address] [place] [id number] [employer]aging Consultant: Chip Andino MD NRBC Automated 0.0 per 100 WBC Normal 0.0 [facility] Comment on above: Performed By: #### C DP, LIVP, CREG, SED #### [address] [place], [facility]83 [employer] Consultant: Chip Andino MD Platelet mean volume (Bld) [Entitic vol] 10.3 fL Normal 8.1-13.5 [facility] Comment on above: Performed By: #### C DP, LIVP, CREG, SED #### [address] [place], [facility]83 [employer] Consultant: Chip Andino MD Platelets (Bld) [#/Vol] 335 10*3/uL Normal 138-453 [facility] Comment on above: Performed By: #### C DP, LIVP, CREG, SED #### [address] [place], [facility]83 [employer] Consultant: Chip Andino MD RBC (Bld) [#/Vol] 4.19 10*6/uL Normal 3.95-5.11 [facility] Comment on above: Performed By: #### C DP, LIVP, CREG, SED #### [address] [place], [facility]83 [employer] Consultant: Chip Andino MD WBC (Bld) [#/Vol] 10.5 10*3/uL Normal 3.5-11.3 [facility] Comment on above: Performed By: #### C DP, LIVP, CREG, SED #### [address] [place] [address] [employer] Consultant: Chip Andino MD Creatinineon 06-11-2022 Creatinine [Mass/Vol] 1.82 mg/dL High 0.50 - 0.90 mg/dL [facility] GFR/1.73 sq M.predicted MDRD (S/P/Bld) [Vol rate/Area] 32 mL/min/{1.73_m2} Low - PINF [facility] Comment on above: Effective Apr 30, 2022 [...] Interpretation and review of laboratory results Abnormal [facility] Creatinine w/GFRon Creatinine [Mass/Vol] 1.82 mg/dL High 0.50-0.90 [facility] Comment on above: Performed By: #### C DP, LIVP, CREG, SED #### [facility] [address] [place] [address] [employer] Consultant: Chip Andino MD GFR/1.73 sq M.predicted among non-blacks MDRD (S/P/Bld) [Vol rate/Area] 32 mL/min/{1.73_m2} Low >60 [facility] Comment on above: Result Comment: Effective Apr [...] #### C DP, LIVP, CREG, SED #### [facility] [address] [place] [address] [employer]aging Consultant: Chip Andino MD Hepatic Function Panelon Albumin [Mass/Vol] 4.3 g/dL 3.5 - 5.2 g/dL [facility] Albumin/Globulin [Mass ratio] 1.5 {ratio} 1.0 - 2.5 [facility] ALP (Bld) [Catalytic activity/Vol] 91 U/L 35 - 104 U/L [facility] ALT [Catalytic activity/Vol] 9 U/L 5 - 33 U/L [facility] AST [Catalytic activity/Vol] 18 U/L NINF - 32 U/L [facility] Bilirubin [Mass/Vol] mg/dL Low 0.3 - 1 .2 mg/dL [facility] Bilirubin, Indirect Can not be calculated 0.00 - 1.00 mg/dL [facility] Bilirubin.indirect [Mass/Vol] mg/dL NINF - 0.31 mg/dL [facility] Interpretation and review of laboratory results Abnormal [facility] Protein [Mass/Vol] 7.2 g/dL 6.4 - 8.3 g/dL [facility] Liver Profileon 06-11-2022 Bilirubin [Mass/Vol] mg/dL Low 0.3-1.2 [facility] Comment on above: Performed By: #### C DP, LIVP, CREG, SED #### [address] [place] [address] [employer]aging Consultant: Chip Andino MD Bilirubin, Indirect Can not be calculated Normal 0.00- 1.00 [facility] Comment on above: Performed By: #### C DP, LIVP, CREG, SED #### [address] [place] [address] [employer] Packaging Consultant: Chip Andino MD Albumin [Mass/Vol] 4.3 g/dL Normal 3.5-5.2 [facility] Comment on above: Performed By: #### C DP, LIVP, CREG, SED #### [address] [place] [address] [employer] Packaging Consultant: Chip Andino MD Albumin/Glob Ratio 1.5 Normal 1.0-2.5 [facility] Comment on above: Performed By: #### C DP, LIVP, CREG, SED #### [facility] [address] [place], [place] [id number] [employer]aging Consultant: Chip Andino MD Alkaline Phos 91 U/L Normal 35-104 [facility] Comment on above: Performed By: #### C DP, LIVP, CREG, SED #### [facility] [address] [place], [facility]83 [employer] Consultant: Chip Andino MD ALT [Catalytic activity/Vol] 9 U/L Normal 5-33 [facility] Comment on above: Performed By: #### C DP, LIVP, CREG, SED #### [address] [place], [facility]83 [employer] Consultant: Chip Andino MD AST [Catalytic activity/Vol] 18 U/L Normal <32 [facility] Comment on above: Performed By: #### C DP, LIVP, CREG, SED #### [address] [place], [facility]83 [employer] Consultant: Chip Andino MD Bilirubin.indirect [Mass/Vol] mg/dL Normal <0.31 [facility] Comment on above: Performed By: #### C DP, LIVP, CREG, SED #### [address] [place], [facility]83 [employer] Consultant: Chip Andino MD Protein [Mass/Vol] 7.2 g/dL Normal 6.4-8.3 [facility] Comment on above: Performed By: #### C DP, LIVP, CREG, SED #### [address] [place] [address] [employer] Consultant: Chip Andino MD Sedimentation Rateon 11-14-2 022 Sedimentation Rate 15 mm/Hr Normal 0-30 [facility] Comment on above: Performed By: #### C DP, LIVP, CREG, SED #### [place] [address] [place] [address] [employer]aging Consultant: Chip Andino MD Sed Rate 15 [facility] XR FOOT RIGHT (MIN 3 VIEWS)o [...] Martha Chi MD 05/20/22 Final result Normal [facility] CBC with Auto Differentialon 04-11-2022 Absolute Eos # 0.49 High [facility] Absolute Immature Granulocyte 0.04 [facility] Absolute Lymph # 2.85 [facility] Absolute What[employer] # 0.95 [facility] Basophils (Bld) [#/Vol] 0.07 10*3/uL [facility] Basophils/100 WBC (Bld) 1 % 0 - 2 % [facility] Eosinophils/100 WBC (Bld) 5 % High 1 - 4 % [facility] Hematocrit (Bld) [Volume fraction] 38.5 % 36.3 - 47.1 % [facility] Hemoglobin (Bld) [Mass/Vol] 12.4 g/dL 11.9 - 15.1 g/dL [facility] Immature granulocytes/100 WBC (Bld) 0 % 0 [facility] Interpretation and review of laboratory results Abnormal [facility] Lymphocytes/100 WBC (Bld) 26 % 24 - 43 % [facility] MCH (RBC) [Entitic mass] 27.6 pg 25.2 - 33.5 pg [facility] MCHC (RBC) [Mass/Vol] 32.2 g/dL 28.4 - 34.8 g/dL [facility] MCV (RBC) [Entitic vol] 85.7 fL 82.6 - 102.9 fL [facility] Monocytes/100 WBC (Bld) 9 % 3 - 12 % [facility] NRBC Automated 0.0 0.0 per 100 WBC [facility] Platelet distribution width (Bld) [Ratio] 12.3 % 11.8 - 14.4 % [facility] Platelet mean volume (Bld) [Entitic vol] 11.1 fL 8.1 - 13.5 fL [facility] Platelets (Bld) [#/Vol] 297 10*3/uL [facility] RBC (Bld) [#/Vol] 4.49 10*6/uL 3.95 - 5.1 1 m/uL [facility] Segmented neutrophils/100 WBC (Bld) 59 % 36 - 65 % [facility] Segs Absolute 6.41 [facility] WBC (Bld) [#/Vol] 10.8 10*3/uL [facility] CBC with Diffon 04-11-2022 Abs. Basophil 0.07 k/uL Normal 0.00-0.20 [facility] Comment on above: Performed By: #### C DP, SED, CREG, LIVP #### [facility] [address] [place] [address] [employer]aging Consultant: Chip Andino MD Abs.Imm.Granulocyte 0.04 k/uL Normal 0.00-0.30 [facility] Comment on above: Performed By: #### C DP, SED, CREG, LIVP #### [facility] [address] [place] [address] [employer] Packaging Consultant: Chip Andino MD Abs.Neutrophil (Seg) 6.41 k/uL Normal 1.50-8.10 [facility] Comment on above: Performed By: #### C DP, SED, CREG, LIVP #### [address] [place], [place] [address] [employer]aging Consultant: Chip Andino MD Basophils/100 WBC (Bld) 1 % Normal 0-2 [facility] Comment on above: Performed By: #### C DP, SED, CREG, LIVP #### [address] [place], [place] [address] [employer] Packaging Consultant: Chip Andino MD Eosinophils (Bld) [#/Vol] 0.49 10*3/uL High 0.00-0.44 [facility] Comment on above: Performed By: #### C DP, SED, CREG, LIVP #### [address] [place], [place] [address] [employer]aging Consultant: Chip Andino MD Eosinophils/100 WBC (Bld) 5 % High 1-4 [facility] Comment on above: Performed By: #### C DP, SED, CREG, LIVP #### [address] [place], [place] [address] [employer]aging Consultant: Chip Andino MD Erythrocyte distribution width (RBC) [Ratio] 12.3 % Normal 11.8-14.4 [facility] Comment on above: Performed By: #### C DP, SED, CREG, LIVP #### [address] [place], [place] [address] [employer]aging Consultant: Chip Andino MD Hematocrit (Bld) [Volume fraction] 38.5 % Normal 36.3-47.1 [facility] Comment on above: Performed By: #### C DP, SED, CREG, LIVP #### [address] [place], [facility]83 [employer] Consultant: Chip Andino MD Hemoglobin (Bld) [Mass/Vol] 12.4 g/dL Normal 11.9-15.1 [facility] Comment on above: Performed By: #### C DP, SED, CREG, LIVP #### [facility] [address] [place], [place] [address] [employer]aging Consultant: Chip Andino MD Immature granulocytes/100 WBC (Bld) 0 % Normal 0 [facility] Comment on above: Performed By: #### C DP, SED, CREG, LIVP #### [address] [place] [address] [employer]aging Consultant: Chip Andino MD Lymphocytes (Bld) [#/Vol] 2.85 10*3/uL Normal 1.10-3.70 [facility] Comment on above: Performed By: #### C DP, SED, CREG, LIVP #### [address] [place], [place] [address] [employer] Packaging Consultant: Chip Andino MD Lymphocytes/100 WBC (Bld) 26 % Normal 24-43 [facility] Comment on above: Performed By: #### C DP, SED, CREG, LIVP #### [address] [place], [facility]83 [employer] Packaging Consultant: Chip Andino MD MCH (RBC) [Entitic mass] 27.6 pg Normal 25.2-33.5 [facility] Comment on above: Performed By: #### C DP, SED, CREG, LIVP #### [address] [place], [facility]83 [employer] Packaging Consultant: Chip Andino MD MCHC (RBC) [Mass/Vol] 32.2 g/dL Normal 28.4-34.8 [facility] Comment on above: Performed By: #### C DP, SED, CREG, LIVP #### [address] [place] [id number] Application Packaging Consultant: Chip Andino MD MCV (RBC) [Entitic vol] 85.7 fL Normal 82.6-102.9 [facility] Comment on above: Performed By: #### C DP, SED, CREG, LIVP #### [address] [place], [place] [id number] [employer]aging Consultant: Chip Andino MD Monocytes (Bld) [#/Vol] 0.95 10*3/uL Normal 0.10-1.20 [facility] Comment on above: Performed By: #### C DP, SED, CREG, LIVP #### [address] [place] [address] [employer]aging Consultant: Chip Andino MD Monocytes/100 WBC (Bld) 9 % Normal 3-12 [facility] Comment on above: Performed By: #### C DP, SED, CREG, LIVP #### [address] [place], [place] [address] [employer] Packaging Consultant: Chip Andino MD Neutrophil (Seg) 59 % Normal 36-65 [facility] Comment on above: Performed By: #### C DP, SED, CREG, LIVP #### [address] [place], [facility]83 Application Packaging Consultant: Chip Andino MD NRBC Automated 0.0 per 100 WBC Normal 0.0 [facility] Comment on above: Performed By: #### C DP, SED, CREG, LIVP #### [address] [place], [facility]83 Application Packaging Consultant: Chip Andino MD Platelet mean volume (Bld) [Entitic vol] 11.1 fL Normal 8.1-13.5 [facility] Comment on above: Performed By: #### C DP, SED, CREG, LIVP #### [address] [place], [facility]83 Application Packaging Consultant: Chip Andino MD Platelets (Bld) [#/Vol] 297 10*3/uL Normal 138-453 [facility] Comment on above: Performed By: #### C DP, SED, CREG, LIVP #### [facility] [address] [place], [place] [phone] [employer] Consultant: Chip Andino MD RBC (Bld) [#/Vol] 4.49 10*6/uL Normal 3.95-5.11 [facility] Comment on above: Performed By: #### C DP, SED, CREG, LIVP #### [facility] [address] [place], [place] [id number] [employer] Consultant: Chip Andino MD WBC (Bld) [#/Vol] 10.8 10*3/uL Normal 3.5-11.3 [facility] Comment on above: Performed By: #### C DP, SED, CREG, LIVP #### [facility] [address] [place], [place] [id number] [employer] Packaging Consultant: Chip Andino MD Creatinineon 04-11-2022 Creatinine [Mass/Vol] 2.38 mg/dL High 0.5 - 0.9 mg/dL [facility] GFR 25 mL/min Low 60 - PI NF mL/min [facility] GFR Non- 21 mL/min Low 60 - PINF mL/min [facility] Interpretation and review of laboratory results Abnormal [facility] Creatinine w/GFRon 2 (cont.) Normal [facility] Comment on above: Result Comment: Aver age GFR for 50-59 years old: 93 mL/min/1.73sq m Chronic Kidney Disease: <60 mL/min/1.73sq m Kidney failure: <15 mL/min/1.73sq m eGFR calculated using average adult body mass. Additional eGFR calculator available at: http://www.[employer].Runfaces/multiple_crcl_2012.htm Performed By: #### C DP, SED, CREG, LIVP #### [facility] [address] [place] [address] Application Packaging Consultant: Chip Andino MD Creatinine [Mass/Vol] 2.38 mg/dL High 0.50-0.90 [facility] Comment on above: Performed By: #### C DP, SED, CREG, LIVP #### [address] [place] [address] [employer] Packaging Consultant: Chip Andino MD GFR, Amer 25 mL/min Low >60 [facility] Comment on above: Performed By: #### C DP, SED, CREG, LIVP #### [address] [place] [address] [employer]aging Consultant: Chip Andino MD GFR,non Amer 21 mL/min Low >60 [facility] Comment on above: Performed By: #### C DP, SED, CREG, LIVP #### [address] [place] [address] [employer] Packaging Consultant: Chip Andino MD Staging: Normal [facility] Comment on above: Result Comment: Stag e 1: Some kidney damage normal GFR Stage 2: Mild kidney damage GFR 60-89 Stage 3: Moderate kidney damage GFR 30-59 Stage 4: Severe kidney damage GFR 15-29 Stage 5: Severe kidney damage GFR <15 ESRD - chronic treatment by dialysis or transplant Performed By: #### C DP, SED, CREG, LIVP #### [address] [place] [address] [employer] Packaging Consultant: Chip Andino MD Hepatic Function Panelon Albumin [Mass/Vol] 4.5 g/dL 3.5 - 5.2 g/dL [facility] Albumin/Globulin [Mass ratio] 1.5 {ratio} 1 - 2.5 [facility] ALP (Bld) [Catalytic activity/Vol] 106 U/L High 35 - 104 U/L [facility] ALT [Catalytic activity/Vol] 16 U/L 5 - 33 U/L [facility] AST [Catalytic activity/Vol] 18 U/L NINF - 32 U/L [facility] Bilirubin [Mass/Vol] 0.2 mg/dL Low 0.3 - 1 .2 mg/dL [facility] Bilirubin, Indirect Can not be calculated 0 - 1 mg/dL [facility] Bilirubin.indirect [Mass/Vol] mg/dL NINF - 0.31 mg/dL [facility] Free PSA/Total PSA [Mass fraction] 7.5 g/dL 6.4 - 8.3 g/dL [facility] Interpretation and review of laboratory results Abnormal [facility] Laboratory - Chemistry and C hemistry - challengeon 04-11-2022 GFR/1.73 sq M.predicted MDRD (S/P/Bld) [Vol rate/Area] [facility] Comment on above: Average GFR for 50-5 9 years old: 93 mL/min/1.73sq m Chronic Kidney Disease: <60 mL/min/1.73sq m Kidney failure: <15 mL/min/1.73sq m eGFR calculated using average adult body mass. Additional eGFR calculator available at: http://www.[employer]/multiple_crcl_2012.htm Stage 1: Some kidney damage normal GFR Stage 2: Mild kidney damage GFR 60-89 Stage 3: Moderate kidney damage GFR 30-59 Stage 4: Severe kidney damage GFR 15-29 Stage 5: Severe kidney damage GFR <15 ESRD - chronic treatment by dialysis or transplant Liver Profileon 04-11-2022 AST [Catalytic activity/Vol] 18 U/L Normal <32 [facility] Comment on above: Performed By: #### C DP, SED, CREG, LIVP #### [facility] [address] [place] [address] Application Packaging Consultant: Chip Andino MD Albumin [Mass/Vol] 4.5 g/dL Normal 3.5-5.2 [facility] Comment on above: Performed By: #### C DP, SED, CREG, LIVP #### [address] [place], [place] [id number] [employer] Consultant: Chip Andino MD Albumin/Glob Ratio 1.5 Normal 1.0-2.5 [facility] Comment on above: Performed By: #### C DP, SED, CREG, LIVP #### [address] [place], [place] [id number] [employer] Packaging Consultant: Chip Andino MD Alkaline Phos 106 U/L High 35-104 [facility] Comment on above: Performed By: #### C DP, SED, CREG, LIVP #### [address] [place], [place] [id number] [employer] Packaging Consultant: Chip Andino MD ALT [Catalytic activity/Vol] 16 U/L Normal 5-33 [facility] Comment on above: Performed By: #### C DP, SED, CREG, LIVP #### [address] [place], [place] [id number] [employer] Packaging Consultant: Chip Andino MD Bilirubin [Mass/Vol] 0.2 mg/dL Low 0.3-1.2 [facility] Comment on above: Performed By: #### C DP, SED, CREG, LIVP #### [address] [place], [facility] Application Packaging Consultant: Chip Andino MD Bilirubin, Indirect Can not be calculated Normal 0.00- 1.00 [facility] Comment on above: Performed By: #### C DP, SED, CREG, LIVP #### [address] [place] [address] [employer] Packaging Consultant: Chip Andino MD Bilirubin.indirect [Mass/Vol] mg/dL Normal <0.31 [facility] Comment on above: Performed By: #### C DP, SED, CREG, LIVP #### [facility] [address] [place], [place] [id number] Application Packaging Consultant: Chip Andino MD Protein [Mass/Vol] 7.5 g/dL Normal 6.4-8.3 [facility] Comment on above: Performed By: #### C DP, SED, CREG, LIVP #### [facility] [address] [place], [place] [id number] [employer] Consultant: Chip Andino MD Sedimentation Rateon 022 Sedimentation Rate 12 mm/Hr Normal 0-30 [facility] Comment on above: Performed By: #### C DP, SED, CREG, LIVP #### [facility] [address] [place] [address] [employer] Packaging Consultant: Chip Andino MD Sed Rate 12 [facility] CBC with Auto Differentialon 02-15-2022 Absolute Eos # 0.17 [facility] Absolute Immature Granulocyte [facility] Absolute Lymph # 2.35 [facility] Absolute Whatcom # 0.82 [facility] Basophils (Bld) [#/Vol] 0.04 10*3/uL [facility] Basophils/100 WBC (Bld) 1 % 0 - 2 % B [facility] Eosinophils/100 WBC (Bld) 3 % 1 - 4 % [facility] Hematocrit (Bld) [Volume fraction] 36.8 % 36.3 - 47.1 % [facility] Hemoglobin (Bld) [Mass/Vol] 12.1 g/dL 11.9 - 15.1 g/dL [facility] Immature granulocytes/100 WBC (Bld) 0 % 0 [facility] Interpretation and review of laboratory results Abnormal [facility] Lymphocytes/100 WBC (Bld) 43 % 24 - 43 % [facility] MCH (RBC) [Entitic mass] 28.5 pg 25.2 - 33.5 pg [facility] MCHC (RBC) [Mass/Vol] 32.9 g/dL 28.4 - 34.8 g/dL [facility] MCV (RBC) [Entitic vol] 86.8 fL 82.6 - 102.9 fL [facility] Monocytes/100 WBC (Bld) 15 % High 3 - 12 % [facility] NRBC Automated 0.0 0.0 per 100 WBC [facility] Platelet distribution width (Bld) [Ratio] 13.5 % 11.8 - 14.4 % [facility] Platelet mean volume (Bld) [Entitic vol] 10.0 fL 8.1 - 13.5 fL [facility] Platelets (Bld) [#/Vol] 304 10*3/uL [facility] RBC (Bld) [#/Vol] 4.24 10*6/uL 3.95 - 5.1 1 m/uL [facility] Segmented neutrophils/100 WBC (Bld) 38 % 36 - 65 % [facility] Segs Absolute 2.10 [facility] WBC (Bld) [#/Vol] 5.5 10*3/uL [facility] CBC with Diffon 02-15-2022 Abs. Basophil 0.04 k/uL Normal 0.00-0.20 [facility] Comment on above: Performed By: #### L IVP, CDP, SED, CREG ####[address] [place] [address] Lab Director: Chip Andino MD Abs.Imm.Granulocyte <0.03 Normal 0.00-0.30 [facility] Comment on above: Performed By: #### L IVP, CDP, SED, CREG ####[facility] [place] [address] Lab Director: Chip Andino MD Abs.Neutrophil (Seg) 2.10 k/uL Normal 1.50-8.10 [facility] Comment on above: Performed By: #### L IVP, CDP, SED, CREG ####[address] [place] [id number] [facility] Director: Chip Andino MD Basophils/100 WBC (Bld) 1 % Normal 0-2 [facility] Comment on above: Performed By: #### L IVP, CDP, SED, CREG ####[address] , [facility]83 lab Director: Chip Andino MD Eosinophils (Bld) [#/Vol] 0.17 10*3/uL Normal 0.00-0.44 [facility] Comment on above: Performed By: #### L IVP, CDP, SED, CREG ####[address] [place] [address] lab Director: Chip Andino MD Eosinophils/100 WBC (Bld) 3 % Normal 1-4 [facility] Comment on above: Performed By: #### L IVP, CDP, SED, CREG ####[address] , [facility]83 Lab Director: Chip Andino MD Erythrocyte distribution width (RBC) [Ratio] 13.5 % Normal 11.8-14.4 [facility] Comment on above: Performed By: #### L IVP, CDP, SED, CREG ####[address] [place] [id number] Lab Director: Chip Andino MD Hematocrit (Bld) [Volume fraction] 36.8 % Normal 36.3-47.1 [facility] Comment on above: Performed By: #### L IVP, CDP, SED, CREG ####[address] [place] [id number] lab Director: Chip Andino MD Hemoglobin (Bld) [Mass/Vol] 12.1 g/dL Normal 11.9-15.1 [facility] Comment on above: Performed By: #### L IVP, CDP, SED, CREG ####[address] , [place] [id number] Lab Director: Chip Andino MD Immature granulocytes/100 WBC (Bld) 0 % Normal 0 [facility] Comment on above: Performed By: #### L IVP, CDP, SED, CREG ####[address] , [place] [id number] lab Director: Chip Andino MD Lymphocytes (Bld) [#/Vol] 2.35 10*3/uL Normal 1.10-3.70 [facility] Comment on above: Performed By: #### L IVP, CDP, SED, CREG ####[address] , [facility]83 lab Director: Chip Andino MD Lymphocytes/100 WBC (Bld) 43 % Normal 24-43 [facility] Comment on above: Performed By: #### L IVP, CDP, SED, CREG ####[address] , [place] [id number] lab Director: Chip Andino MD MCH (RBC) [Entitic mass] 28.5 pg Normal 25.2-33.5 [facility] Comment on above: Performed By: #### L IVP, CDP, SED, CREG ####[address] , [place] [id number] lab Director: Chip Andino MD MCHC (RBC) [Mass/Vol] 32.9 g/dL Normal 28.4-34.8 [facility] Comment on above: Performed By: #### L IVP, CDP, SED, CREG ####[address] [place] [address] lab Director: Chip Andino MD MCV (RBC) [Entitic vol] 86.8 fL Normal 82.6-102.9 [facility] Comment on above: Performed By: #### L IVP, CDP, SED, CREG ####[address] , [place] [id number] Lab Director: Chip Andino MD Monocytes (Bld) [#/Vol] 0.82 10*3/uL Normal 0.10-1.20 [facility] Comment on above: Performed By: #### L IVP, CDP, SED, CREG ####[address] , [place] [id number] Lab Director: Chip Andino MD Monocytes/100 WBC (Bld) 15 % High 3-12 [facility] Comment on above: Performed By: #### L IVP, CDP, SED, CREG ####[address] , [place] [id number] Lab Director: Chip Andino MD Neutrophil (Seg) 38 % Normal 36-65 [facility] Comment on above: Performed By: #### L IVP, CDP, SED, CREG ####[address] , [place] [id number] Lab Director: Chip Andino MD NRBC Automated 0.0 per 100 WBC Normal 0.0 [facility] Comment on above: Performed By: #### L IVP, CDP, SED, CREG ####[address] , [place] [id number] Lab Director: Chip Andino MD Platelet mean volume (Bld) [Entitic vol] 10.0 fL Normal 8.1-13.5 [facility] Comment on above: Performed By: #### L IVP, CDP, SED, CREG ####[address] [place] [address] Lab Director: Chip Andino MD Platelets (Bld) [#/Vol] 304 10*3/uL Normal 138-453 [facility] Comment on above: Performed By: #### L IVP, CDP, SED, CREG ####[address] [place] [address] lab Director: Chip Andino MD RBC (Bld) [#/Vol] 4.24 10*6/uL Normal 3.95-5.11 [facility] Comment on above: Performed By: #### L IVP, CDP, SED, CREG ####[address] [place] [address] lab Director: Chip Andino MD WBC (Bld) [#/Vol] 5.5 10*3/uL Normal 3.5-11.3 [facility] Comment on above: Performed By: #### L IVP, CDP, SED, CREG ####[address] [place] [address] lab Director: Chip Andino MD Creatinineon 02-15-2022 Creatinine [Mass/Vol] 1.2 mg/dL High 0.5 - 0.9 mg/dL [facility] GFR 56 mL/min Low 60 - PI NF mL/min [facility] GFR Non- 46 mL/min Low 60 - PINF mL/min [facility] Creatinine w/GFRon 2 (cont.) Normal [facility] Comment on above: Result Comment: Aver age GFR for 50-59 years old: 93 mL/min/1.73sq m Chronic Kidney Disease: <60 mL/min/1.73sq m Kidney failure: <15 mL/min/1.73sq m eGFR calculated using average adult body mass. Additional eGFR calculator available at: http://www.[employer].com/multiple_crcl_2012.htm Performed By: #### L IVP, CDP, SED, CREG ####[address] [place] [address] lab Director: Chip Andino MD Creatinine [Mass/Vol] 1.20 mg/dL High 0.50-0.90 [facility] Comment on above: Performed By: #### L IVP, CDP, SED, CREG ####[facility] , [place] [id number] lab Director: Chip Andino MD GFR, Amer 56 mL/min Low >60 [facility] Comment on above: Performed By: #### L IVP, CDP, SED, CREG ####[facility] , [place] [address] lab Director: Chip Andino MD GFR,non Amer 46 mL/min Low >60 [facility] Comment on above: Performed By: #### L IVP, CDP, SED, CREG ####[address] , [place] [id number] lab Director: Chip Andino MD Staging: Normal [facility] Comment on above: Result Comment: Stag e 1: Some kidney damage normal GFR Stage 2: Mild kidney damage GFR 60-89 Stage 3: Moderate kidney damage GFR 30-59 Stage 4: Severe kidney damage GFR 15-29 Stage 5: Severe kidney damage GFR <15 ESRD - chronic treatment by dialysis or transplant Performed By: #### L IVP, CDP, SED, CREG ####[address] [place] [address] lab Director: Chip Andino MD Hepatic Function Panelon Albumin [Mass/Vol] 4.5 g/dL 3.5 - 5.2 g/dL [facility] Albumin/Globulin [Mass ratio] 1.5 {ratio} 1 - 2.5 [facility] ALP (Bld) [Catalytic activity/Vol] 96 U/L 35 - 104 U/L [facility] ALT [Catalytic activity/Vol] 15 U/L 5 - 33 U/L [facility] AST [Catalytic activity/Vol] 25 U/L NINF - 32 U/L [facility] Bilirubin [Mass/Vol] 0.19 mg/dL Low 0.3 - 1 .2 mg/dL [facility] Bilirubin, Indirect Can not be calculated 0 - 1 mg/dL [facility] Bilirubin.indirect [Mass/Vol] mg/dL NINF - 0.31 mg/dL [facility] Free PSA/Total PSA [Mass fraction] 7.6 g/dL 6.4 - 8.3 g/dL [facility] Laboratory - Chemistry and C hemistry - challengeon 02-15-2022 GFR/1.73 sq M.predicted MDRD (S/P/Bld) [Vol rate/Area] [facility] Comment on above: Average GFR for 50-5 9 years old: 93 mL/min/1.73sq m Chronic Kidney Disease: <60 mL/min/1.73sq m Kidney failure: <15 mL/min/1.73sq m eGFR calculated using average adult body mass. Additional eGFR calculator available at: http://www.Interfolio/multiple_crcl_2012.htm Stage 1: Some kidney damage normal GFR Stage 2: Mild kidney damage GFR 60-89 Stage 3: Moderate kidney damage GFR 30-59 Stage 4: Severe kidney damage GFR 15-29 Stage 5: Severe kidney damage GFR <15 ESRD - chronic treatment by dialysis or transplant Liver Profileon 02-15-2022 Albumin [Mass/Vol] 4.5 g/dL Normal 3.5-5.2 [facility] Comment on above: Performed By: #### L IVP, CDP, SED, CREG ####[address] [place] [address] lab Director: Chip Andino MD Albumin/Glob Ratio 1.5 Normal 1.0-2.5 [facility] Comment on above: Performed By: #### L IVP, CDP, SED, CREG ####[address] [place] [address] lab Director: Chip Andino MD Alkaline Phos 96 U/L Normal 35-104 [facility] Comment on above: Performed By: #### L IVP, CDP, SED, CREG ####[address] , [place] [id number] Lab Director: Chip Andino MD ALT [Catalytic activity/Vol] 15 U/L Normal 5-33 [facility] Comment on above: Performed By: #### L IVP, CDP, SED, CREG ####[address] [place] [address] Lab Director: Chip Andino MD AST [Catalytic activity/Vol] 25 U/L Normal <32 [facility] Comment on above: Performed By: #### L IVP, CDP, SED, CREG ####[address] [place] [address] lab Director: Chip Andino MD Bilirubin [Mass/Vol] 0.19 mg/dL Low 0.3-1.2 [facility] Comment on above: Performed By: #### L IVP, CDP, SED, CREG ####[address] [place] [address] Lab Director: Chip Andino MD Bilirubin, Indirect Can not be calculated Normal 0.00- 1.00 [facility] Comment on above: Performed By: #### L IVP, CDP, SED, CREG ####[address] [place] [address] Lab Director: Chip Andino MD Bilirubin.indirect [Mass/Vol] mg/dL Normal <0.31 [facility] Comment on above: Performed By: #### L IVP, CDP, SED, CREG ####[address] , [place] [id number] Lab Director: Chip Andino MD Protein [Mass/Vol] 7.6 g/dL Normal 6.4-8.3 [facility] Comment on above: Performed By: #### L IVP, CDP, SED, CREG ####[address] [place] [address] lab Director: Chip Andino MD No Panel Informationon 02-15 Interpretation and review of laboratory results Abnormal [facility] Sedimentation Rateon 022 Sedimentation Rate 23 mm/Hr Normal 0-30 [facility] Comment on above: Performed By: #### L IVP, CDP, SED, CREG ####[facility] [place] [address] lab Director: Chip Andino MD Sed Rate 23 [facility] Patient Educationon 02-10-20 22 Patient Education [...] Take ove (more content not included)... Normal [facility] Reminderson 02-09-2022 Reminders - From: Lynda Boland To: SANDOR Joe; Sent: 02/09/2022 10:23:42 EDT Show up: 12/27/2022 10:23:00 EDT Subject: Recall for Renal US Due Date/Time: 01/26/2023 10:23:00 EDT Reminder/Recall Pleas call and schedule Patient for her SUSAN prior to 02/04/23 follow up. Normal [facility] Urology Office/Clinic Noteon 02-09-2022 Urology Office/Clinic [...] When Contact Information JUNIOR JIMENEZ, Frank Lea, REYES In 1 year [facility] [place] [address]- Additional Instructions: w/ renal US Patient Education [...] Comments SARS-CoV-2 (COVID-19) Ad26 vaccine 11/15/2020 Recorded [employer] Lab Results Ambulatory Point of Care Results Bilirubin Urine Dipstick: Negative (02/09/22 09:55:00) Blood Urine Dipstick: Negative (02/09/22 09:55:00) Glucose Urine Dipstick: Negative (02/09/22 09:55:00) Ketones Urine Dipstick: Negative (02/09/22 09:55:00) Leukocytes Urine Dipstick: (more content not included)... Normal [facility] Comment on above: Result Comment: Elec tronically Signed By: Frank JOE MD.br\Date and Time Signed: 02/09/22 10:18 EDT\.br\Electronically Co-Signed By: Kayli Garrido.br\Date and Time Co-Signed: 02/09/22 10:16 EDT C3 Complementon 11-27-2021 Complement C3 132 mg/dL 90 - 180 mg/dL [employer] C4 Complementon 11-27-2021 Complement C4 34 mg/dL 10 - 40 mg/dL [facility] [employer] CHEST HIGH RESOLUTIONon 0 11-27-2021 Radiology Study observation (narrative) Kaitlin perales Work Phone: 1. Mild basilar honeycombing and mild associated bronchiectasis, consistent with UIP pattern. 2. Main pulmonary artery enlargement raise the possibility of pulmonary hypertension. 3. Calcified atheromatous plaque and coronary calcification. [facility] EXAMINATION: CT IMAGES OF THE CHEST [...] favoring cysts. Soft Tissues/Bones: No significant findings. [facility] Obinna Travis MD - 11/27/2021 EXAMINATION: [...] 3. Calcified atheromatous plaque and coronary calcification. [employer] Work Phone: CT CHEST HIGH RESOLUTIONOrde red By: Obinna Travis on 11-27-2021 [employer] Work Phone: No Panel Informationon 11-27 [employer] Urinalysis with Microscopico n 11-27-2021 - [employer] Bacteria, UA 2+ Abnormal None [employer] Bilirubin Urine Negative NEGATIVE [employer] a [employer]th Color, UA Yellow Yellow [employer] Epithelial Cells UA 0 TO 2 [employer] Glucose, Ur Negative NEGATIVE [employer] Interpretation and review of laboratory results Abnormal [employer] Ketones Ql (U) Negative NEGATIVE [facility] th Leukocyte esterase Test strip Ql (U) SMALL Abnormal NEGATIVE [facility] Nitrite, Urine Negative NEGATIVE [facility] th pH, UA 5.5 [facility] Protein, UA Negative NEGATIVE [facility] RBC, UA None [facility] Specific [place], UA 1.020 [facility] Turbidity UA Clear Clear [facility] Urine Hgb Negative NEGATIVE [facility] Urobilinogen, Urine Normal Normal [facility] WBC, UA 5 TO 10 [facility] CBC with Auto Differentialon 10-03-2021 Absolute Eos # 0.39 [facility] th Absolute Immature Granulocyte 0.04 [facility] Absolute Lymph # 2.70 [facility] alth Absolute Whatcom # 0.91 [facility] lt Basophils (Bld) [#/Vol] 0.08 10*3/uL [facility] Basophils/100 WBC (Bld) 1 % 0 - 2 % [facility] Eosinophils/100 WBC (Bld) 4 % 1 - 4 % [facility] Hematocrit (Bld) [Volume fraction] 35.9 % Low 36.3 - 47.1 % [facility] Hemoglobin.gastrointest inal spec 1 Ql (Stl) 11.4 g/dL Low 11.9 - 15.1 g/dL [facility] Immature granulocytes/100 WBC (Bld) 0 % 0 [facility] Interpretation and review of laboratory results Abnormal [facility] Lymphocytes/100 WBC (Bld) 27 % 24 - 43 % [facility] MCH (RBC) [Entitic mass] 28.2 pg 25.2 - 33.5 pg [facility] MCHC (RBC) [Mass/Vol] 31.8 g/dL 28.4 - 34.8 g/dL [facility] MCV (RBC) [Entitic vol] 88.9 fL 82.6 - 102.9 fL [facility] Monocytes/100 WBC (Bld) 9 % 3 - 12 % [facility] NRBC Automated 0.0 0.0 per 100 WBC [facility] Platelet distribution width (Bld) [Ratio] 14.7 % High 11.8 - 14.4 % [facility] Platelet mean volume (Bld) [Entitic vol] 10.5 fL 8.1 - 13.5 fL [facility] Platelets (Bld) [#/Vol] 327 10*3/uL [facility] RBC (Bld) [#/Vol] 4.04 10*6/uL 3.95 - 5.1 1 m/uL [facility] Segmented neutrophils/100 WBC (Bld) 59 % 36 - 65 % [facility] Segs Absolute 6.03 [facility] ([facility]ld) [#/Vol] 10.2 10*3/uL [facility] Creatinineon 10-03-2021 Creatinine [Mass/Vol] 1.24 mg/dL High 0.50 - 0.90 mg/dL [facility] GFR 54 mL/min Low >60 [facility] GFR Non- 45 mL/min Low >60 [facility] Interpretation and review of laboratory results Abnormal [facility] Hepatic Function Panelon Albumin [Mass/Vol] 4.2 g/dL 3.5 - 5.2 g/dL [facility] Albumin/Globulin [Mass ratio] 1.4 {ratio} [facility] ALP (Bld) [Catalytic activity/Vol] 113 U/L High 35 - 104 U/L [facility] ALT [Catalytic activity/Vol] 11 U/L 5 - 33 U/L [facility] AST [Catalytic activity/Vol] 22 U/L <32 [facility] Bilirubin [Mass/Vol] mg/dL Low 0.3 - 1 .2 mg/dL [facility] Bilirubin, Indirect Can not be calculated 0.00 - 1.00 mg/dL [facility] Bilirubin.indirect [Mass/Vol] mg/dL <0.31 mg/dL [facility] Free PSA/Total PSA [Mass fraction] 7.1 g/dL 6.4 - 8.3 g/dL [facility] Interpretation and review of laboratory results Abnormal [facility] Laboratory - Chemistry and C hemistry - challengeon 10-03-2021 GFR/1.73 sq M.predicted MDRD (S/P/Bld) [Vol rate/Area] [facility] Comment on above: Average GFR for 50-5 9 years old: 93 mL/min/1.73sq m Chronic Kidney Disease: <60 mL/min/1.73sq m Kidney failure: <15 mL/min/1.73sq m eGFR calculated using average adult body mass. Additional eGFR calculator available at: http://www.[employer].Runfaces/multiple_crcl_2011.htm Stage 1: Some kidney damage normal GFR Stage 2: Mild kidney damage GFR 60-89 Stage 3: Moderate kidney damage GFR 30-59 Stage 4: Severe kidney damage GFR 15-29 Stage 5: Severe kidney damage GFR <15 ESRD - chronic treatment by dialysis or transplant Sedimentation Rateon 022 Sed Rate 18 mm 0 - 30 mm [employer] CBC Auto DifferentialOrdered By: Vinicius Bullock on 05-30-2021 Absolute Eos # 0.17 [employer] [facility] Work Phone: Absolute Immature Granulocyte 0.05 [employer] Work Phone: Absolute Lymph # 2.36 [employer] Work Phone: Absolute Whatcom # 0.75 [employer] [facility] Work Phone: Basophils (Bld) [#/Vol] 0.06 10*3/uL [employer] Phone: Basophils/100 WBC (Bld) 1 % 0 - 2 % [facility] [employer] Work Phone: Differential Type NOT REPORTED [employer] Phone: Eosinophils/100 WBC (Bld) 2 % 1 - 4 % [employer] Phone: Hematocrit (Bld) [Volume fraction] 37.1 % 36.3 - 47.1 % [employer] Phone: Hemoglobin.gastrointest inal spec 1 Ql (Stl) 12.0 g/dL 11.9 - 15.1 g/dL [employer] Phone: Immature granulocytes/100 WBC (Bld) 1 % High 0 [employer] Phone: Interpretation and review of laboratory results Abnormal [employer] Phone: Lymphocytes/100 WBC (Bld) 22 % Low 24 - 43 % [employer] Phone: MCH (RBC) [Entitic mass] 27.8 pg 25.2 - 33.5 pg [employer] Phone: MCHC (RBC) [Mass/Vol] 32.3 g/dL 28.4 - 34.8 g/dL [employer] Phone: MCV (RBC) [Entitic vol] 86.1 fL 82.6 - 102.9 fL [employer] Phone: Monocytes/100 WBC (Bld) 7 % 3 - 12 % [facility] [employer] Work Phone: NRBC Automated 0.0 0.0 per 100 WBC [employer] Phone: Platelet distribution width (Bld) [Ratio] 13.9 % 11.8 - 14.4 % [employer] Phone: Platelet Estimate NOT REPORTED [employer] Phone: Platelet mean volume (Bld) [Entitic vol] 10.3 fL 8.1 - 13.5 fL [employer] Phone: Platelets (Bld) [#/Vol] 316 10*3/uL [employer] Phone: RBC (Bld) [#/Vol] 4.31 10*6/uL 3.95 - 5.1 1 m/uL [employer] Phone: RBC (Bld) [#/Vol] NOT REPORTED [employer] Phone: Segmented neutrophils/100 WBC (Bld) 67 % High 36 - 65 % [employer] Phone: Segs Absolute 7.58 [employer] Work Phone: WBC (Bld) [#/Vol] 11.0 10*3/uL [employer] Phone: WBC (Bld) [#/Vol] NOT REPORTED [employer] Phone: [employer] Phone: Creatinine, SerumOrdered By: Vinicius Bullock on 05-30-2021 Creatinine [Mass/Vol] 1.22 mg/dL High 0.50 - 0.90 mg/dL [employer] Phone: GFR 55 mL/min Low >60 [employer] Phone: GFR Non- 45 mL/min Low >60 [employer] Phone: Interpretation and review of laboratory results Abnormal [employer] Phone: [employer] Phone: Hepatic Function PanelOrdere d By: Vinicius Bullock on 05-30-2021 Albumin [Mass/Vol] 4.4 g/dL 3.5 - 5.2 g/dL [employer] Phone: Albumin/Globulin [Mass ratio] 1.4 {ratio} [employer] Phone: ALP (Bld) [Catalytic activity/Vol] 98 U/L 35 - 104 U/L [employer] Phone: ALT [Catalytic activity/Vol] 15 U/L 5 - 33 U/L [employer] Phone: AST [Catalytic activity/Vol] 24 U/L <32 [employer] Phone: Bilirubin [Mass/Vol] mg/dL Low 0.3 - 1 .2 mg/dL [employer] Phone: Bilirubin, Indirect CANNOT BE CALCULATED 0.00 - 1.00 mg/dL [employer] Phone: Bilirubin.indirect [Mass/Vol] mg/dL <0.31 mg/dL [employer] Phone: Free PSA/Total PSA [Mass fraction] 7.5 g/dL 6.4 - 8.3 g/dL [employer] Phone: Globulin NOT REPORTED 1.5 - 3.8 g/dL [employer] Phone: Interpretation and review of laboratory results Abnormal [employer] Phone: [employer] Phone: Laboratory - Chemistry and C hemistry - challengeOrdered By: Vinicius Bullock on 05-30-2021 GFR/1.73 sq M.predicted MDRD (S/P/Bld) [Vol rate/Area] [employer] Phone: Comment on above: Average GFR for 50-5 9 years old: 93 mL/min/1.73sq m Chronic Kidney Disease: <60 mL/min/1.73sq m Kidney failure: <15 mL/min/1.73sq m eGFR calculated using average adult body mass. Additional eGFR calculator available at: http://www.Interfolio/KeenSkim_crcl_2012.htm Stage 1: Some kidney damage normal GFR Stage 2: Mild kidney damage GFR 60-89 Stage 3: Moderate kidney damage GFR 30-59 Stage 4: Severe kidney damage GFR 15-29 Stage 5: Severe kidney damage GFR <15 ESRD - chronic treatment by dialysis or transplant Sedimentation RateOrdered By : Vinicius Bullock on 05-30-2021 Interpretation and review of laboratory results Abnormal [employer] Phone: Sed Rate 25 mm High 0 - 20 mm [employer] Work Phone: [employer] Work Phone: CBC Auto DifferentialOrdered By: Vinicius Bullock on 04-04-2021 Absolute Eos # 0.09 [employer] [facility] Work Phone: Absolute Immature Granulocyte 0.04 [facility] Work Phone: Absolute Lymph # 2.65 [employer] [facility] Work Phone: Absolute Whatcom # 0.80 [employer] [facility] Work Phone: Basophils (Bld) [#/Vol] 0.08 10*3/uL [employer] Work Phone: Basophils/100 WBC (Bld) 1 % 0 - 2 % M [employer] Work Phone: Differential Type NOT REPORTED [employer] Phone: Eosinophils/100 WBC (Bld) 1 % 1 - 4 % [employer] Phone: Hematocrit (Bld) [Volume fraction] 40.0 % 36.3 - 47.1 % [employer] Phone: Hemoglobin.gastrointest inal spec 1 Ql (Stl) 12.9 g/dL 11.9 - 15.1 g/dL [employer] Phone: Immature granulocytes/100 WBC (Bld) 0 % 0 [employer] Phone: Lymphocytes/100 WBC (Bld) 25 % 24 - 43 % [employer] Phone: MCH (RBC) [Entitic mass] 27.4 pg 25.2 - 33.5 pg [employer] Phone: MCHC (RBC) [Mass/Vol] 32.3 g/dL 28.4 - 34.8 g/dL [employer] Phone: MCV (RBC) [Entitic vol] 84.9 fL 82.6 - 102.9 fL [employer] Phone: Monocytes/100 WBC (Bld) 8 % 3 - 12 % [facility] Phone: NRBC Automated 0.0 0.0 per 100 WBC [employer] Phone: Platelet distribution width (Bld) [Ratio] 14.2 % 11.8 - 14.4 % [employer] Phone: Platelet Estimate NOT REPORTED [employer] Phone: Platelet mean volume (Bld) [Entitic vol] 10.1 fL 8.1 - 13.5 fL [employer] Phone: Platelets (Bld) [#/Vol] 314 10*3/uL [employer] Phone: RBC (Bld) [#/Vol] 4.71 10*6/uL 3.95 - 5.1 1 m/uL [employer] Phone: RBC (Bld) [#/Vol] NOT REPORTED [employer] Phone: Segmented neutrophils/100 WBC (Bld) 65 % 36 - 65 % [employer] Phone: Segs Absolute 6[employer]90 [employer] Work Phone: WBC (Bld) [#/Vol] 10.6 10*3/uL [employer] Phone: WBC (Bld) [#/Vol] NOT REPORTED [employer] Phone: [employer] Phone: Creatinine, SerumOrdered By: Vinicius Bullock on 04-04-2021 Creatinine [Mass/Vol] 1.47 mg/dL High 0.50 - 0.90 mg/dL [employer] Phone: GFR 45 mL/min Low >60 [employer] Phone: GFR Non- 37 mL/min Low >60 [employer] Phone: Interpretation and review of laboratory results Abnormal [employer] Phone: [employer] Phone: Hepatic Function PanelOrdere d By: Vinicius Bullock on 04-04-2021 Albumin [Mass/Vol] 4.2 g/dL 3.5 - 5.2 g/dL [employer] Phone: Albumin/Globulin [Mass ratio] 1.4 {ratio} [employer] Phone: ALP (Bld) [Catalytic activity/Vol] 95 U/L 35 - 104 U/L [employer] Phone: ALT [Catalytic activity/Vol] 14 U/L 5 - 33 U/L [employer] Phone: AST [Catalytic activity/Vol] 24 U/L <32 [employer] Phone: Bilirubin [Mass/Vol] mg/dL Low 0.3 - 1 .2 mg/dL [employer] Phone: Bilirubin, Indirect CANNOT BE CALCULATED 0.00 - 1.00 mg/dL [employer] Phone: Bilirubin.indirect [Mass/Vol] mg/dL <0.31 mg/dL [employer] Phone: Free PSA/Total PSA [Mass fraction] 7.2 g/dL 6.4 - 8.3 g/dL [employer] Phone: Globulin NOT REPORTED 1.5 - 3.8 g/dL [employer] Phone: Interpretation and review of laboratory results Abnormal [employer] Phone: [employer] Phone: Laboratory - Chemistry and C hemistry - challengeOrdered By: Vinicius Bullock on 04-04-2021 GFR/1.73 sq M.predicted MDRD (S/P/Bld) [Vol rate/Area] [employer] Phone: Comment on above: Average GFR for 50-5 9 years old: 93 mL/min/1.73sq m Chronic Kidney Disease: <60 mL/min/1.73sq m Kidney failure: <15 mL/min/1.73sq m eGFR calculated using average adult body mass. Additional eGFR calculator available at: http://www.[employer].Runfaces/multiple_crcl_2012.htm Stage 1: Some kidney damage normal GFR Stage 2: Mild kidney damage GFR 60-89 Stage 3: Moderate kidney damage GFR 30-59 Stage 4: Severe kidney damage GFR 15-29 Stage 5: Severe kidney damage GFR <15 ESRD - chronic treatment by dialysis or transplant Sedimentation RateOrdered By : Vinicius Bullock on 04-04-2021 Sed Rate 13 mm 0 - 20 mm [employer] Phone: [employer] Phone: XR ABDOMEN (KUB) (SINGLE AP VIEW)Ordered By: Frank Joe on 02-21-2021 Unremarkable abdominal radiographs without acute abnormality. [employer] Phone: EXAMINATION: ONE SUPINE XRAY VIEW(S) OF THE ABDOMEN 02/21/2021 7:33 am COMPARISON: Abdominal radiographs performed 11/10/2019. HISTORY: ORDERING SYSTEM PROVIDED HISTORY: Urinary urgency FINDINGS: There is a nonobstructive bowel gas pattern. There is no intraperitoneal free air. There are no suspicious calcifications. Stable phleboliths are seen in the pelvis. There is no acute osseous abnormality. The surrounding soft tissues are unremarkable. [employer] Phone: Hector, pn Incoming Radiant Results From JMEA - 02/21/2021 8:40 AM EDT EXAMINATION: ONE [...] IMPRESSION: Unremarkable abdominal radiographs without acute abnormality. [employer] Phone: [employer] Phone: CBC Auto DifferentialOrdered By: Vinicius Bullock on 02-07-2021 Absolute Eos # 0.41 [employer] [facility] Work Phone: Absolute Immature Granulocyte 0.05 [employer] Work Phone: Absolute Lymph # 2.39 [employer] [facility] Work Phone: [employer] Whatcom # 0.91 [employer] [facility] Work Phone: Basophils (Bld) [#/Vol] 0.08 10*3/uL [employer] Phone: Basophils/100 WBC (Bld) 1 % 0 - 2 % [facility] Work Phone: Differential Type NOT REPORTED [employer] Phone: Eosinophils/100 WBC (Bld) 4 % 1 - 4 % [employer] Phone: Hematocrit (Bld) [Volume fraction] 36.4 % 36.3 - 47.1 % [employer] Phone: Hemoglobin.gastrointest inal spec 1 Ql (Stl) 11.2 g/dL Low 11.9 - 15.1 g/dL [employer] Phone: Immature granulocytes/100 WBC (Bld) 1 % High 0 [employer] Phone: Interpretation and review of laboratory results Abnormal [employer] Phone: Lymphocytes/100 WBC (Bld) 26 % 24 - 43 % [employer] Phone: MCH (RBC) [Entitic mass] 27.0 pg 25.2 - 33.5 pg [employer] Phone: MCHC (RBC) [Mass/Vol] 30.8 g/dL 28.4 - 34.8 g/dL [employer] Phone: MCV (RBC) [Entitic vol] 87.7 fL 82.6 - 102.9 fL [employer] Phone: Monocytes/100 WBC (Bld) 10 % 3 - 12 % [facility] Phone: NRBC Automated 0.0 0.0 per 100 WBC [employer] Phone: Platelet distribution width (Bld) [Ratio] 14.5 % High 11.8 - 14.4 % [employer] Phone: Platelet Estimate NOT REPORTED [employer] Phone: Platelet mean volume (Bld) [Entitic vol] 10.0 fL 8.1 - 13.5 fL [employer] Phone: Platelets (Bld) [#/Vol] 390 10*3/uL [employer] Phone: RBC (Bld) [#/Vol] 4.15 10*6/uL 3.95 - 5.1 1 m/uL [employer] Phone: RBC (Bld) [#/Vol] NOT REPORTED [employer] Phone: Segmented neutrophils/100 WBC (Bld) 58 % 36 - 65 % [employer] Phone: Segs Absolute 5[employer]47 [employer] Work Phone: WBC (Bld) [#/Vol] 9.3 10*3/uL [employer] Phone: WBC (Bld) [#/Vol] NOT REPORTED [employer] Phone: [employer] Phone: Creatinine, SerumOrdered By: Vinicius Bullock on 02-07-2021 Creatinine [Mass/Vol] 1.25 mg/dL High 0.50 - 0.90 mg/dL [employer] Phone: GFR 54 mL/min Low >60 [employer] Phone: GFR Non- 44 mL/min Low >60 [employer] Phone: Interpretation and review of laboratory results Abnormal [employer] Phone: [employer] Phone: Hepatic Function PanelOrdere d By: Vinicius Bullock on 02-07-2021 Albumin [Mass/Vol] 4 g/dL 3.5 - 5.2 g/dL [employer] Phone: Albumin/Globulin [Mass ratio] 1.1 {ratio} [employer] Phone: ALP (Bld) [Catalytic activity/Vol] 95 U/L 35 - 104 U/L [employer] Phone: ALT [Catalytic activity/Vol] 13 U/L 5 - 33 U/L [employer] Phone: AST [Catalytic activity/Vol] 22 U/L <32 [employer] Phone: Bilirubin [Mass/Vol] mg/dL Low 0.3 - 1 .2 mg/dL [employer] Phone: Bilirubin, Indirect CANNOT BE CALCULATED 0.00 - 1.00 mg/dL [employer] Phone: Bilirubin.indirect [Mass/Vol] mg/dL <0.31 mg/dL [employer] Phone: Free PSA/Total PSA [Mass fraction] 7.5 g/dL 6.4 - 8.3 g/dL [employer] Phone: Globulin NOT REPORTED 1.5 - 3.8 g/dL [employer] Phone: Interpretation and review of laboratory results Abnormal [employer] Phone: [employer] Phone: Laboratory - Chemistry and C hemistry - challengeOrdered By: Vinicius Bullock on 02-07-2021 GFR/1.73 sq M.predicted MDRD (S/P/Bld) [Vol rate/Area] [employer] Phone: Comment on above: Average GFR for 50-5 9 years old: 93 mL/min/1.73sq m Chronic Kidney Disease: <60 mL/min/1.73sq m Kidney failure: <15 mL/min/1.73sq m eGFR calculated using average adult body mass. Additional eGFR calculator available at: http://www.[employer] Materials.Runfaces/multiple_crcl_2012.htm Stage 1: Some kidney damage normal GFR Stage 2: Mild kidney damage GFR 60-89 Stage 3: Moderate kidney damage GFR 30-59 Stage 4: Severe kidney damage GFR 15-29 Stage 5: Severe kidney damage GFR <15 ESRD - chronic treatment by dialysis or transplant Sedimentation RateOrdered By : Vinicius Bullock on 02-07-2021 Interpretation and review of laboratory results Abnormal [employer] Phone: Sed Rate 62 mm High 0 - 20 mm [employer] Work Phone: [employer] Work Phone: CBC Auto DifferentialOrdered By: Vinicius Bullock on 12-13-2020 Absolute Eos # 0.30 [employer] [facility] Work Phone: Absolute Immature Granulocyte 0.08 [employer] Work Phone: Absolute Lymph # 2.93 [employer] [facility] Work Phone: [employer] Whatcom # 1.04 [employer] [facility] Work Phone: Basophils (Bld) [#/Vol] 0.08 10*3/uL [employer] Work Phone: Basophils/100 WBC (Bld) 1 % 0 - 2 % [facility] Work Phone: Differential Type NOT REPORTED [employer] Phone: Eosinophils/100 WBC (Bld) 2 % 1 - 4 % [employer] Phone: Hematocrit (Bld) [Volume fraction] 37.6 % 36.3 - 47.1 % [employer] Phone: Hemoglobin.gastrointest inal spec 1 Ql (Stl) 12.0 g/dL 11.9 - 15.1 g/dL [employer] Phone: Immature granulocytes/100 WBC (Bld) 1 % High 0 [employer] Phone: Interpretation and review of laboratory results Abnormal [employer] Phone: Lymphocytes/100 WBC (Bld) 21 % Low 24 - 43 % [employer] Phone: MCH (RBC) [Entitic mass] 27.8 pg 25.2 - 33.5 pg [employer] Work Phone: MCHC (RBC) [Mass/Vol] 31.9 g/dL 28.4 - 34.8 g/dL [employer] Phone: MCV (RBC) [Entitic vol] 87.0 fL 82.6 - 102.9 fL [employer] Phone: Monocytes/100 WBC (Bld) 7 % 3 - 12 % M [employer] Work Phone: NRBC Automated 0.0 0.0 per 100 WBC [employer] Phone: Platelet distribution width (Bld) [Ratio] 13.1 % 11.8 - 14.4 % [employer] Phone: Platelet Estimate NOT REPORTED [employer] Phone: Platelet mean volume (Bld) [Entitic vol] 9.7 fL 8.1 - 13.5 fL [employer] Phone: Platelets (Bld) [#/Vol] 345 10*3/uL [employer] Phone: RBC (Bld) [#/Vol] 4.32 10*6/uL 3.95 - 5.1 1 m/uL [employer] Work Phone: RBC (Bld) [#/Vol] NOT REPORTED [employer] Phone: Segmented neutrophils/100 WBC (Bld) 68 % High 36 - 65 % [employer] Work Phone: Segs Absolute 9[employer]87 [employer] Work Phone: WBC (Bld) [#/Vol] 14.3 10*3/uL High [employer] Work Phone: WBC (Bld) [#/Vol] NOT REPORTED [employer] Phone: [employer] Work Phone: Creatinine, SerumOrdered By: Vinicius Bullock on 12-13-2020 Creatinine [Mass/Vol] 1.48 mg/dL High 0.50 - 0.90 mg/dL [employer] Phone: GFR 44 mL/min Low >60 [employer] Phone: GFR Non- 36 mL/min Low >60 [employer] Phone: Interpretation and review of laboratory results Abnormal [employer] Phone: [employer] Phone: Hepatic Function PanelOrdere d By: Vinicius Bullock on 12-13-2020 Albumin [Mass/Vol] 4.2 g/dL 3.5 - 5.2 g/dL [employer] Phone: Albumin/Globulin [Mass ratio] 1.1 {ratio} [employer] Phone: ALP (Bld) [Catalytic activity/Vol] 86 U/L 35 - 104 U/L [employer] Phone: ALT [Catalytic activity/Vol] 12 U/L 5 - 33 U/L [employer] Phone: AST [Catalytic activity/Vol] 21 U/L <32 [employer] Phone: Bilirubin [Mass/Vol] mg/dL Low 0.3 - 1 .2 mg/dL [employer] Phone: Bilirubin, Indirect CANNOT BE CALCULATED 0.00 - 1.00 mg/dL [employer] Phone: Bilirubin.indirect [Mass/Vol] mg/dL <0.31 mg/dL [employer] Phone: Free PSA/Total PSA [Mass fraction] 7.9 g/dL 6.4 - 8.3 g/dL [employer] Phone: Globulin NOT REPORTED 1.5 - 3.8 g/dL [employer] Phone: Interpretation and review of laboratory results Abnormal [employer] Phone: [employer] Phone: Laboratory - Chemistry and C hemistry - challengeOrdered By: Vinicius Bullock on 12-13-2020 GFR/1.73 sq M.predicted MDRD (S/P/Bld) [Vol rate/Area] [employer] Phone: Comment on above: Average GFR for 50-5 9 years old: 93 mL/min/1.73sq m Chronic Kidney Disease: <60 mL/min/1.73sq m Kidney failure: <15 mL/min/1.73sq m eGFR calculated using average adult body mass. Additional eGFR calculator available at: http://www.Interfolio/KeenSkim_crcl_2012.htm Stage 1: Some kidney damage normal GFR Stage 2: Mild kidney damage GFR 60-89 Stage 3: Moderate kidney damage GFR 30-59 Stage 4: Severe kidney damage GFR 15-29 Stage 5: Severe kidney damage GFR <15 ESRD - chronic treatment by dialysis or transplant Sedimentation RateOrdered By : Vinicius Bullock on 12-13-2020 Interpretation and review of laboratory results Abnormal [employer] Phone: Sed Rate 54 mm High 0 - 20 mm [employer] Phone: [employer] Phone: CBC Auto Differentialon 09-26 Basophils (Bld) [#/Vol] 0.06 10*3/uL [employer] Phone: Basophils/100 WBC (Bld) 1 % 0 - 2 % [facility] Phone: Differential Type NOT REPORTED [employer] Phone: Eosinophils (Bld) [#/Vol] 0.33 10*3/uL [employer] Phone: Eosinophils/100 WBC (Bld) 4 % 1 - 4 % [employer] Phone: Erythrocyte distribution width (RBC) [Ratio] 13.3 % 11.8 - 14.4 % [employer] Phone: Hematocrit (Bld) [Volume fraction] 39.0 % 36.3 - 47.1 % [employer] Phone: Hemoglobin (Bld) [Mass/Vol] 12.3 g/dL 11.9 - 15.1 g/dL [employer] Phone: Immature granulocytes (Bld) [#/Vol] 0 % 0 [employer] Phone: Immature granulocytes (Bld) [#/Vol] 0.04 10*3/uL [employer] Phone: Lymphocytes (Bld) [#/Vol] 2.45 10*3/uL [employer] Phone: Lymphocytes/100 WBC (Bld) 27 % 24 - 43 % [employer] Phone: MCH (RBC) [Entitic mass] 27.8 pg 25.2 - 33.5 pg [employer] Phone: MCHC (RBC) [Mass/Vol] 31.5 g/dL 28.4 - 34.8 g/dL [employer] Phone: MCV (RBC) [Entitic vol] 88.2 fL 82.6 - 102.9 fL [employer] Phone: Monocytes (Bld) [#/Vol] 0.79 10*3/uL [employer] Phone: Monocytes/100 WBC (Bld) 9 % 3 - 12 % [employer] Phone: Platelet mean volume (Bld) [Entitic vol] 10.4 fL 8.1 - 13.5 fL [employer] Phone: Platelets (Bld) [#/Vol] 284 10*3/uL [employer] Phone: Platelets (Bld) [#/Vol] NOT REPORTED [employer] Phone: RBC (Bld) [#/Vol] 4.42 10*6/uL 3.95 - 5.1 1 m/uL [employer] Work Phone: RBC morphology finding Nom (Bld) NOT REPORTED [employer] Work Phone: Segmented neutrophils/100 WBC (Bld) 59 % 36 - 65 % [employer] Work Phone: Segs Absolute 5.38 [employer] [facility] Work Phone: WBC (Bld) [#/Vol] 9.1 10*3/uL [employer] Work Phone: WBC (Bld) [#/Vol] 0.0 10*3/uL 0.0 per 10 0 WBC [employer] Phone: WBC Morphology NOT REPORTED [employer] [facility] Work Phone: Creatinine, Serumon 10-14-19 21 Creatinine [Mass/Vol] 1.45 mg/dL High 0.50 - 0.90 mg/dL [employer] Phone: GFR 45 mL/min Low >60 [employer] Phone: GFR Non- 37 mL/min Low >60 [employer] Phone: Interpretation and review of laboratory results Abnormal [employer] Phone: Hepatic Function Panelon Albumin [Mass/Vol] 4.5 g/dL 3.5 - 5.2 g/dL [employer] Phone: Albumin/Globulin [Mass ratio] 1.3 {ratio} [employer] Phone: ALP [Catalytic activity/Vol] 93 U/L 35 - 104 U/L [employer] Phone: ALT [Catalytic activity/Vol] 12 U/L 5 - 33 U/L [employer] Phone: AST [Catalytic activity/Vol] 21 U/L <32 [employer] Phone: Bilirubin Ql (U) <0.10 Low 0.3 - 1.2 mg/dL [employer] Phone: Bilirubin, Indirect CANNOT BE CALCULATED 0.00 - 1.00 mg/dL [employer] Phone: Bilirubin.direct [Mass/Vol] mg/dL <0.31 mg/dL [employer] Phone: Globulin (S) [Mass/Vol] NOT REPORTED 1.5 - 3.8 g/dL [employer] Phone: Interpretation and review of laboratory results Abnormal [employer] Phone: Protein [Mass/Vol] 7.9 g/dL 6.4 - 8.3 g/dL [employer] Phone: Metabolic Panelon 10-13-2020 GFR/1.73 sq M predicted among non-blacks MDRD (S/P/Bld) [Vol rate/Area] [employer] Phone: Comment on above: Stage 1: Some [...] body mass. Additional eGFR calculator available at: http://www.[employer] Materials.Runfaces/multiple_crcl_2012.htm Sedimentation Rateon 021 Interpretation and review of laboratory results Abnormal [employer] Phone: Sed Rate 25 mm High 0 - 20 mm [employer] Phone: XR ABDOMEN (KUB) (SINGLE AP VIEW)on 11-10-2019 No definite renal stones are seen. There is a 2-3 mm calcification in the pelvis on the left felt more likely to reflect a phlebolith although a distal left ureteral stone is not entirely excluded. Consider CT as clinically indicated. [facility]: ONE SUPINE XRAY VIEW(S) OF THE [...] intraperitoneal free air. No acute bony abnormalities. [facility] Hector, pn Incoming Radiant Results From Info/[employer] - 11/10/2019 8:02 AM EDT EXAMINATION: ONE [...] entirely excluded. Consider CT as clinically indicated. [facility] FINGER LEFT MIN 2 VWSon 03-29 FINGER LEFT MIN 2 [facility] [address] [place] [address] Patient Name: SYLVIA GARAY : 1965Sex: FAge: Race: OtherMRN: [id number]. Location: OUTPPatient Status: OVisit #: [id number] Date: 04/15/2017 7:10:00 AMCompleted Date: 04/15/2017 08:31 AMRequesting Provider: OREN LOPES Attending Provider: OREN LOPES Report Copy To: Signs & Symptoms: LT THUMB IP FUSIONHistory: LT THUMB IP FUSIONComments: LT THUMB IP FUSIONExam: FINGER LEFT MIN 2 VWSAccession #: [id number] FIN SEAN LEFT MIN 2 VWS 04/15/2017 8:31 AM EDT SIGNS AND SYMPTOMS: LT THUMB IP FUSION lt thumb IP fusion fluoro time 22 secs TECHNIQUE: Intraprocedural fluoroscopy without radiologist supervision or interpretation. Electronically signed by:Mervin Rios M.D.. Transcribed by: [email or web address], User Resident: Electronically Signed by: MERVIN RIOS @ 04/15/2017 10:35 AM Normal [facility] Comment on above: Order Comment: LT TH UMB IP FUSION Operative Reporton 7 Operative Report MR#: [id number] [facility] Pt. Name: Sylvia Garay Room #: 0C Discharge Date: Birthdate: 1965 OPERATIVE REPORTDATE OF SURGERY: 04/15/2017SURGEON: Oren Lopes M.D.PREOPERATIVE DIAGNOSIS: Degenerative osteoarthritis, left thumb IP joint.POSTOPERATIVE DIAGNOSIS: Degenerative osteoarthritis, left thumb IPjoint.PROCEDURE: IP joint fusion, left thumb.[employer] DISPATCHER: Cain Jean M.D.ANESTHESIA: Regional with an axillary block.INDICATION FOR SURGERY: Sylvia is a 51-year-old female who [facility] with complaints of pain and worsening deformityin her left thumb. Clinically, she has about 81-48-ndgcvj ulnar deviationdeformity at the IP joint of [...] position. An axillary block had been administered perthe Anesthesia Service in the holding area. A [...] prepared andthe thumb was straight with good shgd-ou-rjgn contact. We took a guidewirefrom the Arthrex [...] extensor mechanism was reapproximated with a couple inibhgzn-ju-tmvhm sutures of 4-0 Vicryl. The skin with a buried 4-0 Vicryland then 5-0 Novafil. Sterile dressing of Xeroform gauze, 4x4, fluffs,Araceli, and an William bandage were applied. The tourniquet was released. Allsponge and needle counts were correct at time of closure.Electronicall y Signed by:Oren Lopes M.D. 04/16/2017 12:36 P Jasmin Lopes M.D.Date Dict: 04/15/2017/10:23 Lovely/Oren Lopes M.D.Date Trans: 04/15/2017 10:48 A/Mona_JN:[id number]: Josefa Martinez M.D. [facility] [address] [place] [id number] Normal [facility] POC GLUCOSE LABon 04-15-2017 Glucose mass conc 100 mg/dL Normal 70-[address] [facility] Comment on above: Performed By: #### [id number] ####[place] [address], [facility] FINGER LEFT MIN 2 [facility] 01-26 FINGER LEFT MIN 2 [facility] [address] [place] [address] Patient Name: SYLVIA GARAY : 1965Sex: FAge: Race: OtherMRN: [id number]. Location: 84Patient Status: OVisit #: [id number] Date: 02/13/2017 9:25:00 AMCompleted Date: 02/13/2017 09:28 AMRequesting Provider: BOB BROWN Attending Provider: BOB BROWN Report Copy To: Signs & Symptoms: S63.125A Dislocation of unsp interphaln joint of left thumb, init Z43Obzixby: AthenaComments: , , L thumb , , , Ordering Provider - BOB BROWN , Rendering Provider - BOB BROWN , Exam: FINGER LEFT MIN 2 VWSAccession #: [id number] FIN SEAN LEFT MIN 2 VWS 02/13/2017 [...] change. Electronically signed by:Mervin Epstein. Transcribed by: [email or web address], User Resident: Electronically Signed by: MERVIN EPSTEIN @ 02/13/2017 10:45 AM Normal [facility] Comment on above: Order Comment: , , L thumb , , , Ordering Provider - BOB BROWN , Rendering Provider - BOB BROWN , Vital Signs Date Time Vital Sign Value Performing Clinician Facility 12-19-2021 09:30-0400 Body height 152.4 cm Candi Bernsteinyonas Other [employer] Other 12-19-2021 09:30-0400 Body mass index (BMI) [Ratio] 34.37 kg/m2 Candi Bernsteinyonas Other [employer] Other 12-19-2021 09:30-0400 Body temperature 96.9 [degF] Candi Bernsteinyonas Other [employer] Other 12-19-2021 09:30-0400 Body weight 79.83 kg Candi Bernsteinyonas Other [employer] Other 12-19-2021 09:30-0400 Diastolic blood pressure 72 mm[Hg] Candi George Other [employer] Other 12-19-2021 09:30-0400 Respiratory rate 20 /min Candi Bernsteinyonas Other [employer] Other 12-19-2021 09:30-0400 SaO2% (BldA) [Mass fraction] 99 % Candi Bernsteinyonas Other [employer] Other 12-19-2021 09:30-0400 Systolic blood pressure 120 mm[Hg] Candi George Other [facility] Other 10-13-2020 14:25-0400 BP Diastolic 89 mm[Hg] Zakiya Knight [employer] Phone: 10-13-2020 14:25-0400 BP Systolic 135 mm[Hg] [facility]aki[facility] [employer] Phone: 10-13-2020 14:25-0400 Pulse (Heart Rate) 81 /min [facility] [employer] Phone: 10-13-2020 14:25-0400 Respiratory Rate 16 /min Zakiya Knight [employer] Phone: 10-13-2020 14:00-0400 Pulse Oximetry 98 % [employer] Phone: 10-13-2020 11:13-0400 BMI (Body Mass Index) 34.76 kg/m2 [employer] Phone: 10-13-2020 11:13-0400 Body Temperature 98.01 [degF] Zakiya Knight [employer] Phone: 10-13-2020 11:13-0400 Body weight 80.74 kg [facility] [employer] Phone: Encounters Encounter Date Encounter Type Care Provider Facility Start: 02-07-2024 ambulatory Frank Garcia ty:EU Tiffany Start: 09-03-2023 End: 09-03-2023 ambulatory JAKOB Do [facility] Start: 08-13-2023 End: 08-13-2023 ambulatory LINK LOUISE Not Available Start: 08-06-2023 End: 08-06-2023 ambulatory JOSEFA MARTINEZ Not Available Start: 05-14-2023 End: 05-14-2023 ambulatory JAKOB Do [facility] Start: 02-05-2023 End: 02-05-2023 ambulatory JAKOB Do [facility] Start: 02-04-2023 End: 02-05-2023 ambulatory Frank Lea JUNIOR Facility:[facility] Start: 12-12-2022 ambulatory JUAN LUISJAMI Madrigal Shu in [facility] Start: 11-09-2022 End: 11-09-2022 ambulatory JAKOB Do [facility] Start: 11-06-2022 End: 11-07-[address] VINICIUS BULLOCK Facility:[facility] Start: 10-03-2022 End: 10-03-2022 ambulatory MIREILLEGRAYShaista [facility] Start: 09-21-2022 End: 09-21-2022 ambulatory JAKOB Do [facility] Start: 09-11-2022 End: 09-12-[address] VINICIUS BULLOCK Facility:[facility] Start: 08-13-2022 End: 08-13-2022 ambulatory Josefa Martinez Facility:[facility] [place] [facility] Start: 08-13-2022 End: 08-13-2022 ambulatory MD Josefa Martinez Work Phone: [facility] Work Phone: Start: 08-13-2022 End: 08-13-2022 Patient encounter procedure MD Josefa Martinez Work Phone: [facility] Work Phone: Start: 07-25-2022 End: 07-25-2022 ambulatory Josefa Martinez Facility:[facility] [place] [facility] Start: 07-25-2022 End: 07-25-2022 ambulatory MD Josefa Martinez Work Phone: [facility] Work Phone: Start: 07-25-2022 End: 07-25-2022 Patient encounter procedure MD Josefa Martinez Work Phone: [facility] Work Phone: Start: 06-11-2022 End: 06-12-2022 ambulatory VINICIUS BULLOCK [facility] Start: 06-11-2022 End: 06-11-2022 Subsequent hospital visit by physician Josefa Martinez MD Work Phone: [facility] Start: 05-20-2022 End: 05-20-2022 [facility] Start: 04-11-2022 End: 04-12-2022 ambulatory VINICIUS BULLOCK [facility] Start: 04-11-2022 End: 04-11-2022 Subsequent hospital visit by physician Josefa Martinez MD Work Phone: [facility] Start: 02-15-2022 End: 02-16-2022 ambulatory VINICIUS BULLOCK [facility] Start: 02-15-2022 End: 02-15-2022 Subsequent hospital visit by physician Josefa Martinez MD Work Phone: [facility] Start: 02-09-2022 End: 02-10-2022 ambulatory Frankjavan JOE Facility:[facility] Start: 12-19-2021 End: 12-19-2021 ambulatory Candi George Other [employer] Other Start: 12-19-2021 Office outpatient visit 15 minutes Juan Luisjami Bernste[facility]onas [facility] Start: 11-27-2021 End: 11-29-2021 Subsequent hospital visit by physician Apple Cat Scan Room [facility] Comment on above: Pulmonary fibrosis ( [...] by physician Apple Manriquez Dr Room 2 [facility] Comment on above: Urinary urgency Start: 02-07-2021 End: 02-07-2021 Subsequent hospital visit by physician Josefa Martinez Work Phone: [facility] Start: 12-13-2020 End: 12-13-2020 Subsequent hospital visit by physician Josefa Martinez Work Phone: [facility] Start: 10-13-2020 End: 10-13-2020 Emergency department patient visit Zakiya Knight Work Phone: [facility] ED Comment on above: Fall, initial encoun ter (Primary Dx); Abrasion of scalp, initial encounter Start: 10-13-2020 End: 10-13-2020 Subsequent hospital visit by physician Josefa [facility] Start: 11-10-2019 End: 11-12-2019 Subsequent hospital visit by physician Apple Manriquez Dr Room 4 [facility] Comment on above: Kidney stone Start: 01-27-2018 End: 01-28-2018 Ambulatory DEFAULT PHYSICIAN Facility:[facility] Start: 04-25-2017 End: 04-26-2017 Ambulatory DEFAULT PHYSICIAN Facility:[facility] Start: 04-15-2017 End: 04-16-2017 Ambulatory [facility] Facility:[facility] Start: 02-13-2017 End: 02-14-2017 Ambulatory BOB UNION Facility:[facility] Procedures Date Procedure Procedure Detail Performing Clinician [...] Phone: Start: 10-13-2020 Hepatic function panel Vinicius Bullcok Work Phone: Start: 10-13-2020 Sedimentation rate r bc automated Vinicius Bullock Work Phone: Start: 11-10-2019 Radiologic exam abdo men 1 view Frank Joe Work Phone: Start: 04-15-2017 ANESTH LOWER ARM SURGERY TENNILLE RODRÍGUEZ Start: 04-15-2017 FUSION OF FINGER JOINT OREN LOPES Plan of Treatment Date Care Activity Detail Author Start: 08-31-2028 DTaP/Tdap/Td vaccine (4 - Td or Tdap) DTaP/Tdap/Td vaccine (4 - Td or Tdap) [facility] [employer] Start: 08-31-2028 DTaP/Tdap/Td vaccine (4 - Td) DTaP/Tdap/Td vaccine (4 - Td) [facility] [place] Start: 10-03-2022 Creatinine measurement Creatinine [facility] [employer] Start: 05-30-2022 Creatinine measurement Creatinine mo [facility] [employer] Start: 04-04-2022 Creatinine measurement Creatinine mo [facility] [employer] Work Phone: Start: 03-29-2022 Influenza vaccination Flu vaccine (# 1) [facility] Start: 02-26-2022 Influenza vaccination Flu vaccine (# 1) [facility] Start: 02-07-2022 Creatinine measurement Creatinine mo [facility] [employer] Work Phone: Start: 12-13-2021 Creatinine measurement Creatinine mo [facility] [employer] Work Phone: Start: 10-13-2021 Creatinine measurement Creatinine mo [facility] [employer] Work Phone: Start: 10-11-2021 COVID-19 Vaccine (4 - Booster for Caden series) COVID-19 Vaccine (4 - Booster for Caden series) [facility] Start: 03-29-2021 Influenza vaccination M [facility] Start: 12-22-2020 COVID-19 Vaccine (2 - Booster for Caden series) COVID-19 Vaccine (2 - Booster for Caden series) [facility] Start: 03-29-2020 Influenza vaccination M [place], [place] Start: 10-06-2017 Lipid panel [facility] [place] [facility] Start: 10-06-2017 Lipid screen Lipid screen [place], [place] Start: 10-23-2016 Creatinine monitoring Creatinine mon adria [place] Start: 10-23-2016 Potassium [Moles/vol ume] in Serum or Plasma Potassium [facility] Start: 10-23-2016 Potassium monitoring Potassium monit oring [facility] Start: 03-24-2016 Shingles Vaccine (2 of 3) Shingles Vaccine (2 of 3) [facility] Start: 2014 Breast cancer screen Breast cancer s creen [place], [place] Start: 2014 Colon cancer screen colonoscopy Colon cancer screen colonoscopy [place], [place] Start: 2014 Screening for malign ant neoplasm of breast Breast cancer screen [facility] Start: 2014 Screening for malign ant neoplasm of colon Colon cancer screen colonoscopy [facility] Work Phone: Start: 08-30-2012 Screening for malign ant neoplasm of colon [facility] Start: 08-31-2011 Screening for malign ant neoplasm of colon Colorectal Cancer Screen [facility] Start: 2009 Screening for malign ant neoplasm of colon [facility] Start: 1994 Screening for malign ant neoplasm of cervix [facility] Start: 1985 Cervical cancer screen Cervical canc er screen [place], [place] Start: 1985 Screening for malign ant neoplasm of cervix [facility] Start: 1982 Hepatitis C screening Hepatitis C sc reen [facility] Start: 1980 COVID-19 Vaccine (1) COVID-19 Vaccin e (1) [facility] [employer] Phone: Start: 1979 HIV screen HIV screen [place], [place] Start: 1979 HIV screening [facility] Start: 1976 COVID-19 Vaccine (1) COVID-19 Vaccin e (1) [facility] [employer] Phone: Start: 1976 Depression Screen Depression Screen [facility] Start: 1964 Hepatitis C screen Hepatitis C vie n [facility] [place], [place] Start: 1964 Hepatitis C screening Hepatitis C sc santosn [facility] Immunizations Immunization Date Immunization Notes Care Provider Suki conde 08-16-2021 COVID-19 Aislinn kern Other [employer] Other 10-14-2020 COVID-19 Vaccine Caden - Documentation Purposes Only Candi George Other [employer] Other Payers Date Payer Category Payer Unknown [id number] 2022 Self-pay [id number] 2019 Unknown FRONTPATH [employer] xxxxxxxxx 2019-Present [phone] [address] [place] [address] xxxxxxxxx [id number] 2015 Unknown [id number] 1964 Unknown [id number] 1964 Unknown [id number] [id number] 1964 Unknown [id number] [id number] 1964 Unknown [id number] [id number] 1964 Unknown [id number] [id number] 1964 Unknown [id number] [id number] 1964 Unknown [id number] [id number] 1964 Unknown [id number] [id number] 1964 Unknown [id number] [id number] 1964 Unknown [id number] [id number] 1964 Unknown [id number] [id number] 1964 Unknown [id number] [id number] 1959 Unknown [id number] Unknown Unknown [id number] [id number] Unknown [id number] Social History Date Type Detail Facility Start: 01-29-2013 End: 10-13-2020 Tobacco smoking status [facility] Former smoker [employer] Start: 01-29-2013 End: 05-20-2022 Alcohol intake Current non-drinker of alcohol (finding) [facility] [employer] [place] Start: 1965 Sex Assigned At Not on file [facility] [employer] Start: 10-13-2020 Tobacco use and exposure Never used [employer] Phone: Start: 05-10-2022 End: 05-20-2022 Exposure to SARS-CoV-2 (event) Not sure [employer] Phone: Sex Assigned At Sex Assigned At [facility] [employer] Other History of tobacco use Current smoker [facility] [place] Phone: Start: 1965 Sex Assigned At Female F [facility] Clinical Notes 12-19-2021 to 09-03-2023 Note Date & Type Note Facility 02-06-2024 Note Subjective Earlynne Aldarom is a 58 y.o. year old female [...] (CMS/HCC) Chest pain Coronary artery disease involving georgetown coronary artery of georgetown heart without angina pectoris Deficiency anemia Essential [...] to provide her medication. I asked my assistant film editor and Feli THOMPSON, to call [facility] special pharmacy and send notes medication by mail. We will focus on her getting her medication. We will try to find a way to (more content not included)... [facility] 05-14-2023 Note PAH [facility] Note Chief Complaint: PAH HPI: Sylvia Moon is a 58 y.o. female she is [...] challenged by insurance to provide her medication. [facility] specialty pharmacy told her that tadalafil is just for men and not for woman. We will try again again to get her back on macitentan and adcirca and push insurance to cover her as much as we can. I asked my assistant film editor and MAFeli, to call [facility] special pharmacy and send notes medication by mail. We will try to find a way to cover her medication. 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 year old female patient being seen for pulmonary hypertension. Sylvia is a very pleasant woman. She had a stable dyspnea on exertion. No chest pain or chest discomfort, no dizziness or lightheadedness, no syncope and no palpitation. Patient Active Problem List Diagnosis Arthropathy Atrial fibrillation (CMS/HCC) Chest pain Coronary artery disease involving georgetown coronary artery of georgetown heart without angina pectoris Deficiency anemia Essential [...] Ratio 10/03/2022 20.8 Imaging and other tests [facility] 09-21-2022: HEMODYNAMICS: AO: 117/74 mmHg RA: [...] challenged by insurance (more content not included)... [facility] 11-22-2022 Note Supervising Physicia n & Clinic:?? Dr. Pruitt, Cardiology Sylvia Moon is a 57 y.o. year-old female with [...] Mary Carmen, BCACP, CSP 11/22/22 9:34 AM [facility] [phone] [facility] 11-22-2022 Note Emailed clinic staff the below note, as they will be following up Sylvia Moon 63: tadalafil authorization was denied due to [...] I see the medication is currently at [facility]. [facility] 11-09-2022 Note tadalafil [facility] Subjective Sylvia Sheikh is a 57 y.o. year old female patient being seen for pulmonary hypertension. She had a stable dyspnea on exertion. No chest pain or chest discomfort, no dizziness or lightheadedness, no syncope and no palpitation. 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 [facility] 12-19-2021 Evaluation note Encounter Date Diagnosis Assessment Notes November, Pulmonary fibrosis, unspecified (ICD-10 - J84.10) November, Systemic sclerosis, unspecified (ICD-10 - M34.9) 24 Nov, 2021 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) [employer] Other Evaluation note* Diagnosis Urinary urgency Urgency of urination documented in this encounter [employer] Phone: evaluation note* Diagnosis Pulmonary fibrosis (HCC) Postinflammatory pulmonary fibrosis documented in this encounter [employer] Phone: evalkvalvw noteNo assessment information available [facility] Work Phone: [employer] general Narrative - Reported* Type Description Date Medical History scleroderma Medical History Hypertension Medical History pulmonary hypertension Medical History Esophageal reflux Surgical History D&C 2000 Surgical History C section 2001 Surgical History tubal ligation 2001 [employer] Other Summary Purpose Family History No Family History Records FoundNo Family History Records FoundNo Family History Records FoundNo Family History Records FoundNo Family History Records FoundNo Family History Records FoundNo Family History Records Found Advance Directives No Advanced Directives Records FoundDocuments on File Type Date Recorded Patient Senior Recruiter Expl anation Advance Directives and Living Will Power of Postal Delivery Officer Documents on File Type Date Recorded Patient Senior Recruiter Expl anation ACP-Advance Directive ACP-Power of Postal Delivery Officer Documents on File Type Date Recorded Patient Senior Recruiter Expl anation ACP-Advance Directive ACP-Power of Postal Delivery Officer Advance Directive Response Recorded Date/ Time Advance [...] sent through Care Everywhere. * Head Injury ([place] Citizen) documented in this encounter Chief Complaint and Reason for Visit Chief Complaint pre surgery testing Chief Complaint pre surgery testing M20.12 Additional Source Comments INFORMATION SOURCE (unrecogn ized section and content) DATE CREATED AUTHOR 01/31/2018 [facility] DATE CREATED AUTHOR AUTHOR'S ORGANIZ ATION 09/01/2022 [facility] DATE CREATED AUTHOR AUTHOR'S ORGANIZ ATION 11/12/2022 [facility] DATE CREATED AUTHOR AUTHOR'S ORGANIZ ATION 12/12/2022 [facility] DATE CREATED AUTHOR AUTHOR'S ORGANIZ ATION 02/05/2023 [facility] DATE CREATED AUTHOR AUTHOR'S ORGANIZ ATION 08/14/2023 [facility] DATE CREATED AUTHOR AUTHOR'S ORGANIZ ATION 09/04/2023 [facility] [place] [facility] Reason for Visit (unrecogniz ed section and content) Reason Comments Fall 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 Pt denies LOC, states I saw stars Specialty Diagnoses / Procedures Referred By Suki chaudhari Referred To Contact Radiology Diagnoses Pulmonary fibrosis (HCC) Procedures CT CHEST HIGH RESOLUTION CT CHEST WO CONTRAST Candi George MD Referral ID Status Reason Start Date Expiration Date Visits Re quested Visits Authorized [id number] Closed 11/06/2021 12/05/2021 1 1 Care Teams (unrecognized sec tion and content) Hides Inspector Relationship Specialty Start Date End Date Josefa Martinez MD [address] [place] [address] PCP - General 10/03/12 Hides Inspector Relationship Specialty Start Date End Date Josefa Martinez MD [address] [place], [place] [phone] PCP - General 10/03/12 Hides Inspector Relationship Specialty Start Date End Date Josefa Martinez MD [address] [phone] PCP - General 10/03/12 Team Status: Inactive [...] BE BASED ON THE PRIMARY CLINICAL RECORDS. [facility] [employer] [facility]. provides no warranty or guarantee of the accuracy or completeness of information in this document.
[2023-11-25 08:31] LABS: Basophils Absolute Auto 0.1 10^3/uL (0.0-0.1); Basophils Percent Auto 1.1 % (0.2-2.0); Eosinophils Absolute Auto 0.3 10^3/uL (0.0-0.7); Eosinophils Percent Auto 3.6 % (0.9-7.0); Hematocrit 40.4 % (36.0-48.0); Hemoglobin 12.8 g/dL (12.0-16.0); Immature Granulocytes Abs Auto 0.02 10^3/uL (0.00-0.03); Immature Granulocytes Pct Auto 0.2 % (0.0-0.5); Lymphocytes Absolute Auto 2.4 10^3/uL (1.2-3.8); Lymphocytes Percent Auto 28.7 % (20.5-60.0); Mean Corpuscular HGB Conc 31.7 g/dL (29.9-35.2); Mean Corpuscular Hemoglobin 27.8 pg (26.7-34.0); Mean Corpuscular Volume 87.6 fL (81.0-99.0); Mean Platelet Volume 10.4 fL (9.5-13.5); Monocytes Absolute Auto 0.8 10^3/uL (0.3-0.8); Monocytes Percent Auto 9.3 % (1.7-12.0); Neutrophils Absolute Auto 4.8 10^3/uL (1.4-6.5); Neutrophils Percent Auto 57.1 % (43.0-75.0); Platelet Count 294 10^3/uL (150-450); Red Blood Count 4.61 10^6/uL (4.20-5.40); Red Cell Distribution Width 13.3 % (11.0-15.0); White Blood Count 8.4 10^3/uL (4.0-11.0)
[2023-11-25 08:56] LABS: Erythrocyte Sedimentation Rate 21 mm/hr (<=30)
[2023-11-25 09:45] LABS: Alanine Aminotransferase 19 U/L (14-59); Albumin Globulin Ratio 0.9; Albumin Level 3.6 g/dL (3.4-5.0); Alkaline Phosphatase 153 U/L (46-116); Aspartate Amino Transferase 24 U/L (15-37); Bilirubin Direct 0.1 mg/dL (0.0-0.2); Bilirubin Total 0.3 mg/dL (0.2-1.0); Estimated GFR (African America 60 (>=60); Estimated GFR (Non-African Ame 49 (>=60); Globulin 3.8 g/dL; Total Protein 7.4 g/dL (6.4-8.2)
== END 2023-11-25 07:51 | disposition home or self-care (01) ==
LOC: LAB 07:50
PROVIDERS: PCP Family Medicine; Visit Provider Internal Medicine Rheumatology
DX: M05.79 Rheumatoid arthritis with rheumatoid factor of multiple sites without organ or systems involvement (principal); Z79.899 Other long term (current) drug therapy
CPT/HCPCS: 36415; 80076; 82565; 85025; 85652

== ENCOUNTER 2024-01-20 07:35 | Outpatient (OUT) | payer OTHER, SELFPAY ==
--- OUTSIDE RECORDS SUMMARY | 2024-01-20 07:40 | XMS_ITS | CCD ---
Author Organization [facility] Care Team Providers Care Is Analyst Name Role Phone RIVER BROWNER Unavailable Unavailable STEPHANIE CHRISTARYAER Unavailable Unavailable MICHELLE, RUGEN Unavailable Unavailable BROWN, CHRISTOPHER Unavailable Unavailable SKIE, OREN Unavailable Unavailable SKIE, OREN Unavailable Unavailable MICHELLE, RUGEN Unavailable Unavailable MICHELLE, RUGEN Unavailable Unavailable IN Unavailable Unavailable SKIE, OREN Unavailable Unavailable IN Unavailable Unavailable PITRODA, TENNILLE Unavailable Unavailable PHYSICIAN, DEFAULT Unavailable Unavailable PHYSICIAN, DEFAULT Unavailable Unavailable MICHELLE, RUGEN Unavailable Unavailable PHYSICIAN, DEFAULT Unavailable Unavailable PHYSICIAN, DEFAULT Unavailable Unavailable MICHELLE, RUGEN Unavailable Unavailable Josefa Martinez Primary Care Provider [phone] Josefa Martinez Primary Care Provider [phone] Josefa Martinez Primary Care Provider Josefa Martinez MD Primary Care Provider [phone] Josefa Martinez MD Primary Care Provider Candi George Unavailable Josefa Martinez MD Primary Care Provider Josefa Martinez MD Primary Care Provider MD Josefa Martinez Primary Care Provider [phone] MD Josefa Martinez Attending Provider MIGUEL Benitez Attending Provider Josefa Martinez Primary Care Unavailable Giacomo Benitez Attending Unavailable Giacomo Benitez Admitting Unavailable Josefa Martinez Admitting Unavailable Josefa Martinez Attending Unavailable Josefa Martinez Primary Care Unavailable HALADAEmily, DR COLVIN Admitting Unavailable HALADAY, DR COLVIN Attending Unavailable MICHELLE, DR RIVERO Primary Care Unavailable HALADAY, DR COLVIN Consulting Unavailable HALADAY, DR COLVIN Admitting Unavailable HALADAY, DR COLVIN Attending Unavailable MICHELLE, DR RIVERO Primary Care Unavailable HALADAY, DR COLVIN Consulting Unavailable JUNIOR, Frank Lea Attending Unavailable JOE, Frank Lea Attending Unavailable JOE, Frank Lea Attending Unavailable MICHELLE, JOSEFA Chapman Attending Unavailable LINK LOIUSE Attending Unavailable BOB HARDING Referring Unavailabl e MICHELLE, JOSEFA Chapman Primary Care Unavailable MOUKAMAXIMILIAN ABRAMS Admitting Unavailable MOUKARBEL, MAXIMILIAN Attending Unavailable EDMOND, SAMER J Attending Unavailable EDMOND, SAMER J Referring Unavailable EDMOND, SAMER J Attending Unavailable EDMOND, SAMER J Attending Unavailable EDMOND, SAMER J Referring Unavailable EDMOND, SAMER J Referring Unavailable EDMOND, SAMER J Attending Unavailable Allergies Allergy Classification Reported Allergen(s) Allergy Type Date of Onset Reaction(s) Facility (3 sources) amoxicillin / clavulanate; Translations: [Augmentin] Drug Allergy [address] [facility] Repository (16 sources) Amoxicillin-Pot Clavulanate; Translations: [AMOXICILLIN-PO T CLAVULANATE] Propensity to adverse reactions to drug 3 [place], [place] (1 source) Amoxicillin / Clavulanate Drug Allergy rash [facility] Other (2 sources) Amoxicillin; Translations: [amoxicillin] Drug Allergy 4 rash [facility] Repository (1 source) Clavulanate Drug Allergy 4 [facility] Medications Current Medications Medication Drug Class(es) Dates Sig (Normalized) Sig (Original) aspirin 81 mg delayed release oral tablet (16 sources) Platelet Aggregation Inhibitor, Nonsteroidal Anti-inflammatory Drug Start: 12-16-2023 Aspirin (Clover Low Dose Aspirin) 81 mg tablet,delayed release (DR/EC) Active 81 MG PO Daily December 16, 2023 12:00am take 1 tablet by mouth once azra y aspirin 81 MG tablet Take 81 mg by mouth daily. 0 Active Clover Low Strength 81 MG (1 source) take 1 tablet by mouth once daily carvedilol 6.25 mg oral tablet (17 sources) alpha-Adrenergic Joie, beta-Adrenergic Joie Start: 12-16-2023 take 1 tablet by mouth twice daily at mealtime Carvedilol Active 1 TAB PO Twice daily December 16, 2023 12:00am FreeTextSi tablet with food Orally Twice a day; Note: Source Status: Taking; Provider: Ariel Christopher ( ) take 1 tablet by jovana twice daily at mealtime carvedilol (COREG) 6.25 MG tablet Take 6.25 mg by mouth 2 times daily (with meals). 0 Active ferrous sulfate 325 mg oral tablet (15 sources) take 1 tablet by mouth once daily at breakfast ferrous sulfate 325 (65 FE) MG tablet Take 325 mg by mouth daily (with breakfast). 0 Active hydroCHLOROthiazide 25 mg oral tablet (17 sources) Thiazide Diuretic Start: 2023 take 1 tablet by mouth once daily Hydrochlorothiazide Active 1 TAB PO Daily December 16, 2023 12:00am FreeTextSi tablet Orally Once a day; Note: Source Status: Taking; Provider: Ariel Christopher ( ) take 1 tablet by mouth once azra y hydrochlorothiazide (HYDRODIURIL) 25 MG tablet Take 25 mg by mouth daily. 0 Active hydroxychloroquine sulfate 200 mg oral tablet (17 sources) Antimalarial, Antirheumatic Agent Start: 12-16-2023 take 2 tablets by mouth once daily at mealtime Hydroxychloroquine Active 2 TAB PO Daily December 16, 2023 12:00am FreeTextSi tablets with food or milk Orally Once a day; Note: Source Status: Taking; Provider: Ariel Christopher ( ) take 1 tablet by mouth twice sunita ly hydroxychloroquine (PLAQUENIL) 200 MG tablet Take 200 mg by mouth 2 times daily. 0 Active take 2 tablets by mo [facility] once daily at mealtime leflunomide 20 mg oral tablet (2 sources) Antirheumatic Agent Start: 12-16-2023 take 1 tablet by mouth once daily Leflunomide Active 20 MG PO Daily December 16, 2023 12:00am FreeTextSi tablet Orally Once a day; Note: Source Status: Taking; Provider: Ariel Christopher ( ) take 1 tablet by mouth every twe nty-four hours lisinopril 20 mg oral tablet (17 sources) Angiotensin Converting Enzyme Inhibitor Start: 12-16-2023 take 1 tablet by mouth once daily Lisinopril Active 1 TAB PO Daily December 16, 2023 12:00am FreeTextSi tablet Orally Once a day; Note: Source Status: Taking; Provider: Ariel hCristopher ( ) take 1 tablet by mouth once azra y lisinopril (PRINIVIL;ZESTRIL) 20 MG tablet Take 20 mg by mouth daily. 0 Active loratadine 10 mg oral tablet (17 sources) Start: 12-16-2023 take 1 tablet by mouth once daily Loratadine (Claritin) 10 mg tablet Active 1 TAB PO Daily December 16, 2023 12:00am FreeTextSi tablet Orally Once a day; Note: Source Status: Taking; Provider: Ariel Christopher ( ) take 1 tablet by mouth once azra y loratadine (CLARITIN) 10 MG tablet Take 10 mg by mouth daily. 0 Active NIFEdipine 10 mg oral capsule (17 sources) Dihydropyridine Calcium Channel Joie Start: 12-16-2023 take 10 mg by mouth once Nifedipine Active 10 MG PO Once December 16, 2023 12:00am NIFEdipine (PROC ARDIA XL) 90 MG CR tablet Take 240 mg by mouth daily. 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] Onset: 09-21-2022 Chronic Esophageal disorders (2 sources) Gastro-esophageal reflux disease without esophagitis; Translations: [Gastroesophageal reflux disease] Onset: 04-15-2017 12-16-2023 Chronic Essential hypertension (4 sources) Essential (primary) hypertension; Translations: [Hypertensive disorder] Onset: 04-15-2017 12-16-2023 Chronic External cause codes: Fall (1 source) Fall; Translations: [Fall, initial encounter] Genitourinary symptoms and ill-defined conditions (1 source) Urgent desire to urinate; Translations: [Urgency of urination] Episodic Osteoarthritis (5 sources) Primary osteoarthritis, left hand; Translations: [Secondary osteoarthritis, right hand] Onset: 02-13-2017 Chronic Other aftercare (1 source) 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; Translations: [OTH 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 PRODUCTS 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 CURRENT DRUG THERAPY] Onset: 11-12-2022 Episodic Other connective tissue disease (1 source) Metatarsalgia, right foot; Translations: [Metatarsalgia, right foot] Onset: 07-25-2022 Episodic Other lower respiratory disease (3 sources) Fibrosis of lung; Translations: [Pulmonary fibrosis, unspecified] Chronic Other lower respiratory disease (3 sources) Pulmonary fibrosis, unspecified; Translations: [Postinflammatory pulmonary fibrosis] Onset: 12-19-2021 Resolved: 12-19-2021 Chronic Other lower respiratory disease (1 source) Interstitial lung disease due to connective tissue disease; Translations: [Other specified interstitial pulmonary diseases] 12-16-2023 Chronic Other lower respiratory disease (1 source) Other specified interstitial pulmonary diseases; Translations: [Unspecified diffuse connective tissue disease] 12-16-2023 Chronic Other upper respiratory disease (1 source) Other seasonal allergic rhinitis; Translations: [OTHER SEASONAL ALLERGIC RHINITIS] Onset: 04-15-2017 Chronic Pulmonary heart disease (10 sources) Other secondary pulmonary hypertension; Translations: [Secondary pulmonary hypertension] Onset: 04-15-2017 Resolved: 12-19-2021 Chronic Rheumatoid arthritis and related disease (5 sources) Rheumatoid arthritis, unspecified; Translations: [Rheumatoid arthritis with rheumatoid factor of multiple sites without organ or systems involvement] Onset: 02-13-2017 Chronic Screening or history of mental health and substance abuse (3 sources) Personal history of nicotine dependence; Translations: [Tobacco use and exposure - finding] Onset: 04-15-2017 12-16-2023 Episodic Superficial injury; contusion (1 source) Abrasion of scalp; Translations: [Abrasion of scalp, initial encounter] Episodic Systemic lupus erythematosus and connective tissue disorders (8 sources) Systemic sclerosis, unspecified; Translations: [Systemic sclerosis] [...] Onset: 02-13-2017 Episodic Other aftercare (1 source) 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 The patient was examined and there are no changes to the H&P. 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 Will proceed with RHC for further assessment. Procedure's details, risks and benefits discussed with the patient and she's agreeable. Normal [facility] NURSNOTEon 12-18-2023 NURSNOTE RN educated pt on d/ c instructions. RN encouraged pt to voice any questions or concerns. Pt verbalizes no questions or concerns at this time. Pt was walked off of unit with all of belongings. Normal [facility] CT CHEST WO CONTRASTon 12-14 CT CHEST WO CONTRAST EXAMINATION: CT OF THE CHEST WITHOUT CONTRAST 12/13/2023 6:46 pm TECHNIQUE: CT of the chest was performed without the administration of intravenous contrast. Multiplanar reformatted images are provided for review. Automated exposure control, iterative reconstruction, and/or weight based adjustment of the mA/kV was utilized to reduce the radiation dose to as low as reasonably achievable. COMPARISON: CT chest 12/12/2022, 11/27/2021. HISTORY: ORDERING SYSTEM PROVIDED HISTORY: Pulmonary fibrosis (HCC) FINDINGS: LOWER NECK: Unremarkable thyroid gland. No enlarged lymph nodes. CHEST: Mediastinum: Thoracic aorta has normal caliber. Stable dilated main pulmonary artery measuring up to 3.4 cm. No enlarged mediastinal lymph nodes. The esophagus is unremarkable. Heart: Normal heart size. No pericardial thickening. Moderate coronary artery calcifications. Pleural Space: No pleural effusion or pneumothorax. Lungs: The central airways are patent. Stable mild reticulations in posterior bilateral lung bases, suggesting early pulmonary fibrosis. No consolidation. No suspicious pulmonary nodule. UPPER ABDOMEN: Small sliding-type hiatal hernia. Stable scattered hypodense lesions in the liver, likely cysts. MUSCULOSKELETAL: No acute osseous abnormality. Mild-moderate thoracic spondylosis. IMPRESSION: 1. Stable mild reticulations in posterior bilateral lung bases, suggesting early pulmonary fibrosis. 2. Stable dilated main pulmonary artery. Correlate with pulmonary arterial hypertension. 3. Other chronic findings as described. Interpreted by: Shar Chery MD Signed by: Shar Chery MD 12/15/23 Final result Normal [facility] Abstracton 12-05-2023 Abstract [id number] Sylvia Moon 1965 F Date Provider Department Center 12/05/2023 325-FLORY PRUITT [facility]EVIN [facility] Family History Problem Relation Age of Onset Hypertension Mother Hypertension Father Family Status - Relation Status Age at Mother Father [facility] 35on 12-04-2023 35 Thank you for the information. We will get this sent to another pharmacy [facility] 12-04-2023 - Attestation signed by Flory Pruitt MD at 12/04/2023 11:23 AM I personally saw and examined the patient on the same date of service as resident/fellow Dr. Cortez. I discussed the findings and therapeutic plan with the resident/fellow Dr. Cortez. I agree with the documentation, except for any edits/updates below. Teaching Physician's Revisions: None Subjective Sylvia Moon is a 58 y.o. year old female patient being seen for pulmonary arterial hypertension. She is doing well. She denies any chest pain or chest discomfort, she has stable dyspnea on exertion but good functional capacity, no dizziness or lightheadedness and no palpitation. She did not get still her medication from insurance. She is able to walk up to 1 mile with no SOB. Patient Active Problem List Diagnosis Arthropathy Atrial fibrillation (CMS/HCC) Chest pain Coronary artery disease involving mohegan coronary artery of mohegan heart without angina pectoris Deficiency anemia Essential hypertension Hyperlipidemia Pulmonary HTN (CMS/HCC) Systemic sclerosis (CMS/HCC) Shortness of breath WHO group 1 pulmonary arterial hypertension (CMS/HCC) Family History Problem Relation Name Age of Onset Hypertension Mother Hypertension Father Social History Tobacco Use Smoking status: Former Types: Cigarettes Smokeless tobacco: Never Vaping Use Vaping Use: Never used Substance Use Topics Alcohol use: Not Currently Review of Systems Cardiovascular: Positive for dyspnea on exertion. All other systems reviewed and are negative. Objective Visit Vitals BP 118/62 Pulse 69 Ht 1.524 m (5') Wt 77.1 kg (170 lb) SpO2 96% BMI 33.20 kg/m??? OB Status Postmenopausal Smoking Status Former [...] or split., Disp: 90 tablet, Rfl: 3 macitentan (Opsumit) 10 mg tablet, Take 10 mg by mouth in the morning., Disp: , Rfl: tadalafil (Cialis) 20 mg [...] PAH due schleroderma. Euvolemic on physical exam H (more content not included)... Normal [facility] Office Visiton 12-04-2023 Follow-up visit [id number] Sylvia Moon 1965 F Date Provider Department Center 12/04/2023 Mia-FLORY PRUITT [facility] Family History Problem Relation Age of Onset Hypertension Mother Hypertension Father Family Status - Relation Status Age at Mother Father Level of Service:24975 IN OFFICE/OUTPATIENT ESTABLISHED MOD MDM 30 MIN (GC) Normal [facility] Office Visiton 09-03-2023 Follow-up visit [id number] Sylvia Moon 1965 F Date Provider Department Center 09/03/2023 FLORY [place] Family History Problem Relation Age of Onset Hypertension Mother Hypertension Father Family Status - Relation Status Age at Mother Father Level of Service:57532 IN OFFICE/OUTPATIENT ESTABLISHED MOD MDM [address] [facility] Office Visiton 05-14-2023 Follow-up visit [id number] Sylvia Moon 1965 F Date Provider Department Center 05/14/2023 FLORY [place] Family History Problem Relation Age of Onset Hypertension Mother Hypertension Father Family Status - Relation Status Age at Mother Father Level of Service:80486 IN OFFICE/OUTPATIENT ESTABLISHED MOD MDM 30-[address] [facility] Office Visiton 02-05-2023 Follow-up visit [id number] Sylvia Moon 1965 F Date Provider Department Center 02/05/2023 FLORY [place] Family History Problem Relation Age of Onset Hypertension Mother Hypertension Father Family Status - Relation Status Age at Mother Father Level of Service:28709 IN OFFICE/OUTPATIENT ESTABLISHED MOD MDM 30-[address] [facility] RAD - Ultrasound Reporton RAD - Ultrasound Report [id number] Normal [facility] Ambulatory Visit Summaryon 0 02-04-2023 Ambulatory Visit Summary MICHELLESYLVIA MENA :1965 Visit Date:02/04/2023 Ambulatory Visit Instructions Your Diagnosis OAB (overactive bladder) Incomplete bladder emptying Personal history of kidney stones Tests Performed Urnls Dip Stick Auto w/o Microscopy POC 68165 Your Care Team Attending Physician - JUNIOR [...] JIMENEZ, Frank Lea Where: [facility] Patient Educationon 02-05-20 Patient Education Obstetrics and [...] these instructions at home: Medicines ? Take [id number] and prescription medicines only as told by [...] provider. Document Revised: 04/05/2021 Document Reviewed: 04/05/2021 [employer] Patient Education ? 2022 [place]. [facility] Urology Office/Clinic Noteon 02-04-2023 Urology Office/Clinic Note [...] [facility] [address], [place] [address] [phone] Additional Instructions: Patient Education Acute Urinary Retention, Female I, Oneyda Vallecillo, personally scribed for Dr. Joe on 02/04/2023 10:16:46. . Documentation recorded by the scribe, Oneyda Vallecillo, accurately reflects the services(s) I performed and [...] vaccine, i (more content not included)... Normal [facility] Comment on above: Result Comment: Elec tronically Signed By: Frank JOE MD\.br\Date and Time Signed: 02/04/23 10:19 EDT\.br\Electronically Co-Signed By: Oneyda Vallecillo.br\Date and Time Co-Signed: 02/04/23 10:17 EDT CBC AUTO DIFFon 11-06-2022 BASO # 0.1 103/ul Normal 0.0-0.1 [facility] Comment on above: Performed By: #### C BC #### [facility] [address] [place] [address] Dr. Stefany Corral Basophils/100 WBC (Bld) 0.7 % Normal 0.2-2.0 [facility] Comment on above: Performed By: #### C BC #### [facility] [address] [place] [address] Dr. Stefany Corral EO # 0.3 103/ul Normal 0.0-0.7 [facility] Comment on above: Performed By: #### C BC #### [facility] [address] [place] [address] Dr. Stefany Corral Eosinophils/100 WBC (Bld) 3.0 % Normal 0.9-7.0 [facility] Comment on above: Performed By: #### C BC #### [facility] [address] [place] [address] Dr. Stefany Corral Erythrocyte distribution width (RBC) [Ratio] 15.1 % Critically high 11.0-15.0 [facility] Comment on above: Performed By: #### C BC #### [facility] [address] [place] [address] Dr. Stefany Corral Hematocrit (Bld) [Volume fraction] 36.2 % Normal 36.0-48.0 [facility] Comment on above: Performed By: #### C BC #### [facility] [address] [place] [address] Dr. Stefany Corral Hemoglobin (Bld) [Mass/Vol] 12.0 g/dL Normal 12.0-16.0 [facility] Comment on above: Performed By: #### C BC #### [facility] [address] [place] [address] Dr. Stefany Corral IG # 0.03 10e3/ul Normal 0.00-0.03 [facility] Comment on above: Performed By: #### C BC #### [facility] [address] [place] [address] Dr. Stefany Corral IG % 0.3 % Normal 0.0-0.5 [facility] Comment on above: Performed By: #### C BC #### [facility] [address] [place] [address] Dr. Stefany Corral LYMPH # 2.4 103/ul Normal 1.2-3.8 [facility] Comment on above: Performed By: #### C BC #### [facility] [address] [place] [address] Dr. Stefany Corral Lymphocytes/100 WBC (Bld) 27.4 % Normal 20.5-60.0 [facility] Comment on above: Performed By: #### C BC #### [facility] [address] [place] [address] Dr. Stefany Corral MANUAL DIFF REQ NO Normal [facility] Comment on above: Performed By: #### C BC #### [facility] [address] [place] [address] Dr. Stefany Corral MCH (RBC) [Entitic mass] 28.4 pg Normal 26.7-34.0 [facility] Comment on above: Performed By: #### C BC #### [facility] [address] [place] [address] Dr. Stefany Corral MCHC (RBC) [Mass/Vol] 33.1 g/dL Normal 29.9-35.2 [facility] Comment on above: Performed By: #### C BC #### [facility] [address] [place] [address] Dr. Stefany Corral MCV (RBC) [Entitic vol] 85.6 fL Normal 81.0-99.0 [facility] Comment on above: Performed By: #### C BC #### [facility] [address] [place] [address] Dr. Stefany Corral MONO # 1.0 103/ul Critically high 0.3-0.8 [facility] Comment on above: Performed By: #### C BC #### [facility] [address] [place] [address] Dr. Stefany Corral Monocytes/100 WBC (Bld) 11.2 % Normal 1.7-12.0 [facility] Comment on above: Performed By: #### C BC #### [facility] [address] [address] [address] Stefany Corral NEUT # 5.0 103/ul Normal 1.4-6.5 [facility] Comment on above: Performed By: #### C BC #### [facility] [address] [address] [address] Stefany Corral Neutrophils/100 WBC (Bld) 57.4 % Normal 43.0-75.0 [facility] Comment on above: Performed By: #### C BC #### [facility] [address] [address] [address] Stefany Corral Platelet mean volume (Bld) [Entitic vol] 10.0 fL Normal 9.5-13.5 [facility] Comment on above: Performed By: #### C BC #### [facility] [address] [place] [address] Dr. Stefany Corral PLT 321 103/ul Normal 150-450 [facility] Comment on above: Performed By: #### C BC #### [facility] [address] [place] [address] Dr. Stefany Corral RBC 4.23 106/ul Normal 4.20-5.40 [facility] Comment on above: Performed By: #### C BC #### [facility] [address] [place] [address] Dr. Stefany Corral WBC 8.6 103/ul Normal 4.0-11.0 [facility] Comment on above: Performed By: #### C BC #### [facility] [address] [place] [address] Dr. Stefany Corral CREATININEon 11-06-2022 Creatinine [Mass/Vol] 1.14 mg/dL Critically high 0.55-1.02 [facility] Comment on above: Performed By: #### L PETRONA BETHEA #### [facility] [address] [place] [address] Dr. Stefany Corral EGFR-AF TUNISIAN 59 mL/min/1.73m2 Critically low >=60 [facility] Comment on above: Performed By: #### CHELSIE MILANA #### [facility] [address] [address] [address] Stefany Corral EGFR-NON AF TUNISIAN 49 mL/min/1.73m2 Critically low >=60 [facility] Comment on above: Performed By: #### Pawel BETHEA CREA #### [facility] [address] [place] [address] Dr. Stefany Corral LIVER PROFILEon 11-06-2022 Albumin [Mass/Vol] 3.5 g/dL Normal 3.4-5.0 [facility] Comment on above: Performed By: #### PETRONA MILAN #### [facility] [address] [place] [address] Dr. Stefany Corral Albumin/Globulin [Mass ratio] 0.9 {ratio} Normal [facility] Comment on above: Performed By: #### CHELSIE MILANA #### [facility] [address] [place] [address] Dr. Stefany Corral ALP [Catalytic activity/Vol] 124 U/L Critically high 46-116 [facility] Comment on above: Performed By: #### PETRONA MILAN #### [facility] [address] [place] [address] Dr. Stefany Corral ALT [Catalytic activity/Vol] 18 U/L Normal 14-59 [facility] Comment on above: Performed By: #### CHELSIE MILANA #### [facility] [address] [place] [address] Dr. Stefany Corral AST [Catalytic activity/Vol] 16 U/L Normal 15-37 [facility] Comment on above: Performed By: #### CHELSIE MILANA #### [facility] [address] [place] [address] Dr. Stefany Corral BILI, CONJUGATED 0.0 mg/dL Normal 0.0-0.2 [facility] Comment on above: Performed By: #### CHELSIE MILANA #### [facility] [address] [place] [address] Dr. Stefany Corral Bilirubin [Mass/Vol] 0.2 mg/dL Normal 0.2-1.0 [facility] Comment on above: Performed By: #### L PETRONA BETHEA #### [facility] [address] [place] [address] Dr. Stefany Corral Globulin (S) [Mass/Vol] 4.0 g/dL Normal [facility] Comment on above: Performed By: #### PETRONA MILAN #### [facility] [address] [place] [address] Dr. Stefany Corral Protein [Mass/Vol] 7.5 g/dL Normal 6.4-8.2 [facility] Comment on above: Performed By: #### PETRONA MILAN #### [facility] [address] [place] [address] Dr. Stefany Corral [facility] 19 mm/hr Normal <=30 [facility] Comment on above: Performed By: #### S EDR #### [facility] [address] [place] [address] Dr. Stefany Corral CBC AUTO DIFFon 09-11-2022 BASO # 0.1 103/ul Normal 0.0-0.1 [facility] Comment on above: Performed By: #### C BC #### [facility] [address] [place] [address] Dr. Stefany Corral Basophils/100 WBC (Bld) 0.6 % Normal 0.2-2.0 [facility] Comment on above: Performed By: #### C BC #### [facility] [address] [place] [address] Dr. Stefany Corral EO # 0.1 103/ul Normal 0.0-0.7 [facility] Comment on above: Performed By: #### C BC #### [facility] [address] [place] [address] Dr. Stefany Corral Eosinophils/100 WBC (Bld) 1.4 % Normal 0.9-7.0 [facility] Comment on above: Performed By: #### C BC #### [facility] [address] [place] [address] Dr. Stefany Corral Erythrocyte distribution width (RBC) [Ratio] 13.7 % Normal 11.0-15.0 [facility] Comment on above: Performed By: #### C BC #### [facility] [address] [place] [address] Dr. Stefany Corral Hematocrit (Bld) [Volume fraction] 40.2 % Normal 36.0-48.0 [facility] Comment on above: Performed By: #### C BC #### [facility] [address] [place] [address] Dr. Stefany Corral Hemoglobin (Bld) [Mass/Vol] 13.4 g/dL Normal 12.0-16.0 [facility] Comment on above: Performed By: #### C BC #### [facility] [address] [place] [address] Dr. Stefany Corral IG # 0.03 10e3/ul Normal 0.00-0.03 [facility] Comment on above: Performed By: #### C BC #### [facility] [address] [place] [address] Dr. Stefany Corral IG % 0.3 % Normal 0.0-0.5 [facility] Comment on above: Performed By: #### C BC #### [facility] [address] [place] [address] Dr. Stefany Corral LYMPH # 2.4 103/ul Normal 1.2-3.8 [facility] Comment on above: Performed By: #### C BC #### [facility] [address] [place] [address] Dr. Stefany Corral Lymphocytes/100 WBC (Bld) 27.4 % Normal 20.5-60.0 [facility] Comment on above: Performed By: #### C BC #### [facility] [address] [place] [address] Dr. Stefany Corral MANUAL DIFF REQ NO Normal [facility] Comment on above: Performed By: #### C BC #### [facility] [address] [place] [address] Dr. Stefany Corral MCH (RBC) [Entitic mass] 27.5 pg Normal 26.7-34.0 [facility] Comment on above: Performed By: #### C BC #### [facility] [address] [place] [address] Dr. Stefany Corral MCHC (RBC) [Mass/Vol] 33.3 g/dL Normal 29.9-35.2 [facility] Comment on above: Performed By: #### C BC #### [facility] [address] [place] [address] Dr. Stefany Corral MCV (RBC) [Entitic vol] 82.4 fL Normal 81.0-99.0 [facility] Comment on above: Performed By: #### C BC #### [facility] [address] [place] [address] Dr. Stefany Corral MONO # 0.8 103/ul Normal 0.3-0.8 [facility] Comment on above: Performed By: #### C BC #### [facility] [address] [place] [address] Dr. Stefany Corral Monocytes/100 WBC (Bld) 8.6 % Normal 1.7-12.0 [facility] Comment on above: Performed By: #### C BC #### [facility] [address] [place] [address] Dr. Stefany Corral NEUT # 5.5 103/ul Normal 1.4-6.5 [facility] Comment on above: Performed By: #### C BC #### [facility] [address] [place] [address] Dr. Stefany Corral Neutrophils/100 WBC (Bld) 61.7 % Normal 43.0-75.0 [facility] Comment on above: Performed By: #### C BC #### [facility] [address] [place] [address] Dr. Stefany Corral Platelet mean volume (Bld) [Entitic vol] 10.2 fL Normal 9.5-13.5 [facility] Comment on above: Performed By: #### C BC #### [facility] [address] [place] [address] Dr. Stefany Corral PLT 326 103/ul Normal 150-450 [facility] Comment on above: Performed By: #### C BC #### [facility] [address] [place] [address] Dr. Stefany Corral RBC 4.88 106/ul Normal 4.20-5.40 [facility] Comment on above: Performed By: #### C BC #### [facility] [address] [place] [address] Dr. Stefany Corral WBC 8.9 103/ul Normal 4.0-11.0 [facility] Comment on above: Performed By: #### C BC #### [facility] [address] [place] [address] Dr. Stefany Corral CREATININEon 09-11-2022 Creatinine [Mass/Vol] 1.34 mg/dL Critically high 0.55-1.02 [facility] Comment on above: Performed By: #### PETRONA MILAN #### [facility] [address] [place] [address] Dr. Stefany Corral EGFR-AF TUNISIAN 49 mL/min/1.73m2 Critically low >=60 [facility] Comment on above: Performed By: #### PETRONA MILAN #### [facility] [address] [place] [address] Dr. Stefany Corral EGFR-NON AF TUNISIAN 41 mL/min/1.73m2 Critically low >=60 [facility] Comment on above: Performed By: #### PETRONA IMLAN #### [facility] [address] [place] [address] Dr. Stefany Corral LIVER PROFILEon 09-11-2022 Albumin [Mass/Vol] 3.8 g/dL Normal 3.4-5.0 [facility] Comment on above: Performed By: #### PETRONA MILAN #### [facility] [address] [place] [address] Dr. Stefany Corral Albumin/Globulin [Mass ratio] 0.9 {ratio} Normal [facility] Comment on above: Performed By: #### PETRONA MILAN #### [facility] [address] [address] [address] Stefany Corral ALP [Catalytic activity/Vol] 114 U/L Normal 46-116 [facility] Comment on above: Performed By: #### L NEEMA CREA #### [facility] [address] [address] [address] Stefany Corral ALT [Catalytic activity/Vol] 12 U/L Critically low 14-59 [facility] Comment on above: Performed By: #### L NEEMA CREA #### [facility] [address] [address] [address] Stefany Corral AST [Catalytic activity/Vol] 17 U/L Normal 15-37 [facility] Comment on above: Performed By: #### L NEEMA CREA #### [facility] [address] [place] [address] Dr. Stefany Corral BILI, CONJUGATED 0.0 mg/dL Normal 0.0-0.2 [facility] Comment on above: Performed By: #### L NEEMA CREA #### [facility] [address] [address] [address] Stefany Corral Bilirubin [Mass/Vol] 0.2 mg/dL Normal 0.2-1.0 [facility] Comment on above: Performed By: #### L NEEMA CREA #### [facility] [address] [address] [address] Stefany Corral Globulin (S) [Mass/Vol] 4.3 g/dL Normal [facility] Comment on above: Performed By: #### L NEEMA CREA #### [facility] [address] [address] [address] Stefany Corral Protein [Mass/Vol] 8.1 g/dL Normal 6.4-8.2 [facility] Comment on above: Performed By: #### L NEEMA, CREA #### [facility] [address] [address] [address] Stefany Corral SED RATE [facility] 2022 SED RATE 79 mm/hr Critically high <=30 [facility] Comment on above: Performed By: #### S EDR #### [facility] [address] [address] [address] Stefany Corral XR chest 2V*on 08-13-2022 XR chest 2V* [facility] [address] [place] [address] XRay Report Signed Patient: Sylvia Bass MR#: [id number] : 1965 Acct:[id number] Age/Sex: 57 / F ADM Date: 08/13/22 Loc: XD Room: Type: [facility] Attending Dr: Giacomo Benitez DPAri Copies to: Giacomo Benitez DPM Ordering Provider: [...] Devonte Platt M.D.08/13/2022 2:42 PM Dictation Location: [place] [address] Transcribed By: [facility] 08/13/22 1442 Dictated By: Devonte Platt DO 08/13/22 1441 Signed By: 08/13/22 1442 Normal [facility] Basic Metabolic Panelon 12-2 Anion gap [Moles/Vol] 15.3 mmol/L High 6.0-15.0 [facility] Comment on above: Order Comment: PT IS NON FASTING Reason for Exam HAV (hallux abducto valgus), left;Metatarsalgia of right michelet Performed By: #### C BC, BMP #### [facility] [address] [id number] [facility] Calcium [Mass/Vol] 9.2 mg/dL Normal 8.2-10.2 [facility] Comment on above: Order Comment: PT IS NON FASTING Reason for Exam HAV (hallux abducto valgus), left;Metatarsalgia of right michelet Result Comment: PERF ORMED BY: [place] [id number] PATHOLOGIST [employer] JESUSITA NICHOLE M.D. Performed By: #### C BC, BMP #### [address] Chloride [Moles/Vol] 98 mmol/L Normal 95-114 [facility] Comment on above: Order Comment: PT IS NON FASTING Reason for Exam HAV (hallux abducto valgus), left;Metatarsalgia of right michelet Performed By: #### C BC, BMP #### [address] CO2 [Moles/Vol] 23.6 mmol/L Normal 22.0-30.0 [place] Comment on above: Order Comment: PT IS NON FASTING Reason for Exam HAV (hallux abducto valgus), left;Metatarsalgia of right michelet Performed By: #### C BC, BMP #### [address] Creatinine [Mass/Vol] 1.48 mg/dL High 0.44-1.03 [facility] Comment on above: Order Comment: PT IS NON FASTING Reason for Exam HAV (hallux abducto valgus), left;Metatarsalgia of right michelet Performed By: #### C BC, BMP #### [place] [address] [place] Estimated GFR ( Shandra [address] [facility] Comment on above: Order Comment: PT IS NON FASTING Reason for Exam HAV (hallux abducto valgus), left;Metatarsalgia of right michelet Result Comment: GFR estimated reference range: According to KDOQI guidelines, <60 ml/min/1.73m2 is sufficient to diagnose a patient with chronic kidney disease. Performed By: #### C BC, BMP #### [place] [id number] [place] Estimated GFR (Non- Am [address] [facility] Comment on above: Order Comment: PT IS NON FASTING Reason for Exam HAV (hallux abducto valgus), left;Metatarsalgia of right michelet Performed By: #### C BC, BMP #### [facility] [address] Glucose [Mass/Vol] 95 mg/dL Normal 70-100 [facility] Comment on above: Order Comment: PT IS NON FASTING Reason for Exam HAV (hallux abducto valgus), left;Metatarsalgia of right michelet Result Comment: [facility] Glucose Reference Range is dependent on time and content of last meal. Glucose of more than 200 mg/dL in a nonstressed, ambulatory subject supports the diagnosis of Diabetes Mellitus. ADA recommended reference range Performed By: #### C BC, BMP #### [facility] [address] Potassium [Moles/Vol] 3.9 mmol/L Normal 3.5-5.1 [facility] Comment on above: Order Comment: PT IS NON FASTING Reason for Exam HAV (hallux abducto valgus), left;Metatarsalgia of right michelet Performed By: #### C BC, BMP #### [facility] [address] Sodium [Moles/Vol] 133 mmol/L Low 136-146 [facility] Comment on above: Order Comment: PT IS NON FASTING Reason for Exam HAV (hallux abducto valgus), left;Metatarsalgia of right michelet Performed By: #### C BC, BMP #### [facility] [address] Urea nitrogen [Mass/Vol] 29 mg/dL High 9-23 [facility] Comment on above: Order Comment: PT IS NON FASTING Reason for Exam HAV (hallux abducto valgus), left;Metatarsalgia of right michelet Performed By: #### C BC, BMP #### [facility] [address] [place] [address] [place] Basophils Auto (Bld) [#/Vol] Ordered By: Josefa Martinez on 07-25-2022 Basophils (Bld) [#/Vol] 0.0 10*3/uL 0.0-0.2 [facility] Basophils/100 WBC Auto (Bld) Ordered By: Josefa Martinez on 07-25-2022 Basophils/100 WBC (Bld) 0.4 % . F [facility] Complete Blood Count Auto Di ffon 07-25-2022 Basophils (Bld) [#/Vol] 0.0 10*3/uL Normal 0.0-0.2 [facility] Comment on above: Order Comment: Reaso n for Exam HAV (hallux abducto valgus), left;Metatarsalgia of right michelet Result Comment: PERF ORMED BY: [place] [id number] PATHOLOGIST [employer] JESUSITA NICHOLE M.D. Performed By: #### C BC, BMP #### [address] Basophils/100 WBC (Bld) 0.4 % Normal . [facility] Comment on above: Order Comment: Reaso n for Exam HAV (hallux abducto valgus), left;Metatarsalgia of right michelet Performed By: #### C BC, BMP #### [facility] [address] [place] [address] [place] Eosinophils (Bld) [#/Vol] 0.5 10*3/uL High 0.0-0.45 [facility] Comment on above: Order Comment: Reaso n for Exam HAV (hallux abducto valgus), left;Metatarsalgia of right michelet Performed By: #### C BC, BMP #### [place] [address] [place] Eosinophils/100 WBC (Bld) 6.1 % Normal . [facility] Comment on above: Order Comment: Reaso n for Exam HAV (hallux abducto valgus), left;Metatarsalgia of right michelet Performed By: #### C BC, BMP #### [address] Erythrocyte distribution width (RBC) [Ratio] 14.9 % Normal 11.9-15.3 [facility] Comment on above: Order Comment: Reaso n for Exam HAV (hallux abducto valgus), left;Metatarsalgia of right michelet Performed By: #### C BC, BMP #### [facility] [address] Hematocrit (Bld) [Volume fraction] 38.3 % Normal 34.0-46.4 [facility] Comment on above: Order Comment: Reaso n for Exam HAV (hallux abducto valgus), left;Metatarsalgia of right micheelt Performed By: #### C BC, BMP #### [address] Hemoglobin (Bld) [Mass/Vol] 12.5 g/dL Normal 11.8-15.4 [facility] Comment on above: Order Comment: Reaso n for Exam HAV (hallux abducto valgus), left;Metatarsalgia of right michelet Performed By: #### C BC, BMP #### [address] Lymphocytes (Bld) [#/Vol] 2.6 10*3/uL Normal 1.00-4.8 [facility] Comment on above: Order Comment: Reaso n for Exam HAV (hallux abducto valgus), left;Metatarsalgia of right michelet Performed By: #### C BC, BMP #### [address] Lymphocytes/100 WBC (Bld) 32.8 % Normal . [facility] Comment on above: Order Comment: Reaso n for Exam HAV (hallux abducto valgus), left;Metatarsalgia of right michelet Performed By: #### C BC, BMP #### [address] MCH (RBC) [Entitic mass] 27.1 pg Normal 24.7-34.3 [facility] Comment on above: Order Comment: Reaso n for Exam HAV (hallux abducto valgus), left;Metatarsalgia of right michelet Performed By: #### C BC, BMP #### [address] [place] [address] [place] MCV (RBC) [Entitic vol] 83.2 fL Normal 80-100 [facility] Comment on above: Order Comment: Reaso n for Exam HAV (hallux abducto valgus), left;Metatarsalgia of right michelet Performed By: #### C BC, BMP #### [facility] [address] Mean Corpuscular HGB Conc 32.5 g/dL Normal 32.0-35.0 [facility] Comment on above: Order Comment: Reaso n for Exam HAV (hallux abducto valgus), left;Metatarsalgia of right michelet Performed By: #### C BC, BMP #### [address] Monocytes (Bld) [#/Vol] 1.0 10*3/uL High 0.0-0.8 [facility] Comment on above: Order Comment: Reaso n for Exam HAV (hallux abducto valgus), left;Metatarsalgia of right michelet Performed By: #### C BC, BMP #### [place] [address] [place] Monocytes/100 WBC (Bld) 12.5 % Normal . [facility] Comment on above: Order Comment: Reaso n for Exam HAV (hallux abducto valgus), left;Metatarsalgia of right michelet Performed By: #### C BC, BMP #### [place] [address] [place] Neutrophils (Bld) [#/Vol] 3.8 10*3/uL Normal 1.8-7.7 [facility] Comment on above: Order Comment: Reaso n for Exam HAV (hallux abducto valgus), left;Metatarsalgia of right michelet Performed By: #### C BC, BMP #### [address] Neutrophils/100 WBC (Bld) 48.2 % Normal . [facility] Comment on above: Order Comment: Reaso n for Exam HAV (hallux abducto valgus), left;Metatarsalgia of right michelet Performed By: #### C BC, BMP #### [facility] [address] NRBC% 0.1 /100{WBC} Normal 0-0.5 [facility] Comment on above: Order Comment: Reaso n for Exam HAV (hallux abducto valgus), left;Metatarsalgia of right michelet Performed By: #### C BC, BMP #### [address] Platelet mean volume (Bld) [Entitic vol] 8.6 fL Normal 6.3-10.7 [facility] Comment on above: Order Comment: Reaso n for Exam HAV (hallux abducto valgus), left;Metatarsalgia of right michelet Performed By: #### C BC, BMP #### [address] Platelets (Bld) [#/Vol] 257 10*3/uL Normal 150-450 [facility] Comment on above: Order Comment: Reaso n for Exam HAV (hallux abducto valgus), left;Metatarsalgia of right michelet Performed By: #### C BC, BMP #### [address] RBC (Bld) [#/Vol] 4.60 10*6/uL Normal 3.60-5.00 [facility] Comment on above: Order Comment: Reaso n for Exam HAV (hallux abducto valgus), left;Metatarsalgia of right michelet Performed By: #### C BC, BMP #### [address] WBC (Bld) [#/Vol] 7.9 10*3/uL Normal 3.8-11.6 [facility] Comment on above: Order Comment: Reaso n for Exam HAV (hallux abducto valgus), left;Metatarsalgia of right michelet Performed By: #### C BC, BMP #### [place] [address] Creatinine and Glomerular fi ltration rate.predicted panel (S/P/Bld)Ordered By: Josefa Martinez on 07-25-2022 Creatinine [Mass/Vol] 1.48 mg/dL 0.44-1.03 [facility] ECG 12 lead ECGon 07-25-2022 ECG 12 lead ECG [facility] [address] [place] [address] [place] [address] Electrocardiograph Report Signed Patient: Sylvia Bass MR#: [id number] : 1965 Acct:[id number] Age/Sex: 57 / F ADM Date: 07/25/22 Loc: Room: Type: [facility] Attending Dr: Josefa Martinez MD Ordering [...] Referred By: JOSEFA MARTINEZ Electronically Signed By:JAN BALDERRAMA MD Transcribed By: MUS Signed By Jan Balderrama MD 1 09/25/21 1625 Normal [facility] Eosinophils Auto (Bld) [#/Vo l]Ordered By: Josefa Martinez on 07-25-2022 Eosinophils (Bld) [#/Vol] 0.5 10*3/uL 0.0-0.45 [facility] Eosinophils/100 WBC Auto (Bl d)Ordered By: Josefa Martinez on 07-25-2022 Eosinophils/100 WBC (Bld) 6.1 % . [facility] Erythrocyte distribution wid th Auto (RBC) [Ratio]Ordered By: Josefa Martinez on 07-25-2022 Erythrocyte distribution width (RBC) [Ratio] 14.9 % 11.9-15.3 [facility] Estimated glomerular filtrat ion rate (GFR) non- AmericanOrdered By: Josefa Martinez on 07-25-2022 GFR/1.73 sq M.predicted among non-blacks MDRD (S/P/Bld) [Vol rate/Area] 36 mL/Min [facility] Hematocrit Auto (Bld) [Volum e fraction]Ordered By: Josefa Martinez on 07-25-2022 Hematocrit (Bld) [Volume fraction] 38.3 % 34.0-46.4 [facility] Hemoglobin [Mass/volume] in BloodOrdered By: Josefa Martinez on 07-25-2022 Hemoglobin (Bld) [Mass/Vol] 12.5 g/dL 11.8-15.4 [facility] Leukocytes [#/volume] correc brendan for nucleated erythrocytes in Blood by Automated counOrdered By: Josefa Martinez on 07-25-2022 WBC corrected for nucl RBC Auto (Bld) [#/Vol] 7.9 10*3/uL 3.8-11.6 [facility] Lymphocytes Auto (Bld) [#/Vo l]Ordered By: Josefa Martinez on 07-25-2022 Lymphocytes (Bld) [#/Vol] 2.6 10*3/uL 1.00-4.8 [facility] Lymphocytes/100 WBC Auto (Bl d)Ordered By: Josefa Martinez on 07-25-2022 Lymphocytes/100 WBC (Bld) 32.8 % . [facility] MCH Auto (RBC) [Entitic mass ]Ordered By: Josefa Martinez on 07-25-2022 MCH (RBC) [Entitic mass] 27.1 pg 24.7-34.3 [facility] MCHC Auto (RBC) [Mass/Vol]Or dered By: Josefa Martinez on 07-25-2022 MCHC (RBC) [Mass/Vol] 32.5 g/dL 32.0-35.0 [facility] MCV Auto (RBC) [Entitic vol] Ordered By: Josefa Martinez on 07-25-2022 MCV (RBC) [Entitic vol] 83.2 fL 80-100 [facility] Monocytes Auto (Bld) [#/Vol] Ordered By: Josefa Guzmana on 07-25-2022 Monocytes (Bld) [#/Vol] 1.0 10*3/uL 0.0-0.8 [facility] Monocytes/100 WBC Auto (Bld) Ordered By: Josefa [place] on 07-25-2022 Monocytes/100 WBC (Bld) 12.5 % . F [facility] Neutrophils Auto (Bld) [#/Vo l]Ordered By: Josefa Michelle on 07-25-2022 Neutrophils (Bld) [#/Vol] 3.8 10*3/uL 1.8-7.7 [facility] Neutrophils/100 WBC Auto (Bl d)Ordered By: Josefa Michelle on 07-25-2022 Neutrophils/100 WBC (Bld) 48.2 % . [facility] No Panel InformationOrdered By: Josefa Martinez on 07-25-2022 Estimated GFR () 44 mL/Min [facility] Comment on above: GFR estimated refere nce range: According to KDOQI guidelines, <60 ml/min/1.73m2 is sufficient to diagnose a patient with chronic kidney disease. Pharmacy Creatinine Clearance (Chem N/A [facility] Nucleated erythrocytes [Pres ence] in Blood by Automated countOrdered By: Josefa Martinez on 07-25-2022 Nucleated RBC Auto Ql (Bld) 0.1 /100{WBC} 0-0.5 [facility] Platelet mean volume Auto (B ld) [Entitic vol]Ordered By: Josefa Michelle on 07-25-2022 Platelet mean volume (Bld) [Entitic vol] 8.6 fL 6.3-10.7 [facility] Platelets Auto (Bld) [#/Vol] Ordered By: Josefa Michelle on 07-25-2022 Platelets (Bld) [#/Vol] 257 10*3/uL 150-450 [facility] RBC Auto (Bld) [#/Vol]Ordere d By: Josefa Michelle on 07-25-2022 RBC (Bld) [#/Vol] 4.60 10*6/uL 3.60-5.00 [facility] Serum or plasma anion gap de terminationOrdered By: Josefa Martinez on 07-25-2022 Anion gap [Moles/Vol] 15.3 mmol/L 6.0-15.0 [facility] Serum or plasma calcium enma urement (mass/volume)Ordered By: Josefa Martinez on 07-25-2022 Calcium [Mass/Vol] 9.2 mg/dL 8.2-10.2 [facility] [facility] Serum or plasma chloride horace surement (moles/volume)Ordered By: Josefa Martinez on 07-25-2022 Chloride [Moles/Vol] 98 mmol/L 95-114 [facility] Serum or plasma glucose enma urement (mass/volume)Ordered By: Josefa Martinez on 07-25-2022 Glucose [Mass/Vol] 95 mg/dL 70-100 [facility] Comment on above: ADA recommended refe rence rangeRandom Glucose Reference Range is dependent on time and content of last meal. Glucose of more than 200 mg/dL in a nonstressed, ambulatory subject supports the diagnosis of Diabetes Mellitus. Serum or plasma potassium me asurement (moles/volume)Ordered By: Josefa Martinez on 07-25-2022 Potassium [Moles/Vol] 3.9 mmol/L 3.5-5.1 [facility] Serum or plasma sodium measu rement (moles/volume)Ordered By: Josefa Martinez on 07-25-2022 Sodium [Moles/Vol] 133 mmol/L 136-146 [facility] Serum or plasma total carbon dioxide measurement (moles/volume)Ordered By: Josefa Martinez on 07-25-2022 CO2 [Moles/Vol] 23.6 mmol/L 22.0-30.0 [place] Serum or plasma urea nitroge n measurement (mass/volume)Ordered By: Josefa Martinez on 07-25-2022 Urea nitrogen [Mass/Vol] 29 mg/dL 9-23 [facility] WBC Auto (Bld) [#/Vol]Ordere d By: Josefa Martinez on 07-25-2022 WBC (Bld) [#/Vol] 7.9 10*3/uL 3.8-11.6 [facility] CBC with Auto Differentialon 06-11-2022 Absolute Eos # 0.11 [facility] Absolute Immature Granulocyte 0.00 [facility] Absolute Lymph # 4.52 High [facility] Absolute Lucas # 0.95 [facility] Atypical Lymphocytes 2 % [facility] Atypical Lymphocytes Absolute 0.21 k/uL [facility] Basophils (Bld) [#/Vol] 0.11 10*3/uL [facility] Basophils/100 WBC (Bld) 1 % 0 - 2 % [facility] Eosinophils/100 WBC (Bld) 1 % 1 - 4 % [facility] Hematocrit (Bld) [Volume fraction] 35.9 % Low 36.3 - 47.1 % [facility] Hemoglobin (Bld) [Mass/Vol] 11.4 g/dL Low 11.9 - 15.1 g/dL [facility] Immature granulocytes/100 WBC (Bld) 0 % 0 [facility] Interpretation and review of laboratory results Abnormal [facility] Lymphocytes/100 WBC (Bld) 43 % 24 - 43 % [facility] MCH (RBC) [Entitic mass] 27.2 pg 25.2 - 33.5 pg [facility] MCHC (RBC) [Mass/Vol] 31.8 g/dL 28.4 - 34.8 g/dL [facility] MCV (RBC) [Entitic vol] 85.7 fL 82.6 - 102.9 fL [facility] Monocytes/100 WBC (Bld) 9 % 3 - 12 % [facility] Morphology William (Bld) [Interp] Platelet scan shows Normal Platelets [facility] NRBC Automated 0.0 0.0 per 100 WBC [facility] Platelet distribution width (Bld) [Ratio] 13.4 % 11.8 - 14.4 % [facility] Platelet mean volume (Bld) [Entitic vol] 10.3 fL 8.1 - 13.5 fL [facility] Platelets (Bld) [#/Vol] 335 10*3/uL [facility] RBC (Bld) [#/Vol] 4.19 10*6/uL 3.95 - 5.1 1 m/uL [facility] Segmented neutrophils/100 WBC (Bld) 44 % 36 - 65 % [facility] Segs Absolute 4.60 [facility] WBC (Bld) [#/Vol] 10.5 10*3/uL [facility] Creatinineon 06-11-2022 Creatinine [Mass/Vol] 1.82 mg/dL High 0.50 - 0.90 mg/dL [facility] GFR/1.73 sq M.predicted MDRD (S/P/Bld) [Vol rate/Area] 32 mL/min/{1.73_m2} Low - PINF [facility] Comment on above: Effective Apr 30, 2022 [...] Interpretation and review of laboratory results Abnormal [facility] Hepatic Function Panelon Albumin [Mass/Vol] 4.3 g/dL 3.5 - 5.2 g/dL [facility] Albumin/Globulin [Mass ratio] 1.5 {ratio} 1.0 - 2.5 [facility] ALP (Bld) [Catalytic activity/Vol] 91 U/L 35 - 104 U/L [facility] ALT [Catalytic activity/Vol] 9 U/L 5 - 33 U/L [facility] AST [Catalytic activity/Vol] 18 U/L NINF - 32 U/L [facility] Bilirubin [Mass/Vol] mg/dL Low 0.3 - 1 .2 mg/dL [facility] Bilirubin, Indirect Can not be calculated 0.00 - 1.00 mg/dL [facility] Bilirubin.indirect [Mass/Vol] mg/dL NINF - 0.31 mg/dL [facility] Interpretation and review of laboratory results Abnormal [facility] Protein [Mass/Vol] 7.2 g/dL 6.4 - 8.3 g/dL [facility] Sedimentation Rateon 022 Sed Rate 15 [facility] CBC with Auto Differentialon 04-11-2022 Absolute Eos # 0.49 High [place] [facility] Absolute Immature Granulocyte 0.04 [facility] Absolute Lymph # 2.85 [facility] Absolute Lucas # 0.95 [facility] RS [facility] Basophils (Bld) [#/Vol] 0.07 10*3/uL [facility] Basophils/100 WBC (Bld) 1 % 0 - 2 % [facility] Eosinophils/100 WBC (Bld) 5 % High 1 - 4 % [facility] Hematocrit (Bld) [Volume fraction] 38.5 % 36.3 - 47.1 % [facility] Hemoglobin (Bld) [Mass/Vol] 12.4 g/dL 11.9 - 15.1 g/dL [facility] Immature granulocytes/100 WBC (Bld) 0 % 0 [facility] Interpretation and review of laboratory results Abnormal [facility] Lymphocytes/100 WBC (Bld) 26 % 24 - 43 % [facility] MCH (RBC) [Entitic mass] 27.6 pg 25.2 - 33.5 pg [facility] MCHC (RBC) [Mass/Vol] 32.2 g/dL 28.4 - 34.8 g/dL [facility] MCV (RBC) [Entitic vol] 85.7 fL 82.6 - 102.9 fL [facility] Monocytes/100 WBC (Bld) 9 % 3 - 12 % [facility] NRBC Automated 0.0 0.0 per 100 WBC [facility] Platelet distribution width (Bld) [Ratio] 12.3 % 11.8 - 14.4 % [facility] Platelet mean volume (Bld) [Entitic vol] 11.1 fL 8.1 - 13.5 fL [facility] Platelets (Bld) [#/Vol] 297 10*3/uL [facility] RBC (Bld) [#/Vol] 4.49 10*6/uL 3.95 - 5.1 1 m/uL [facility] Segmented neutrophils/100 WBC (Bld) 59 % 36 - 65 % [facility] Segs Absolute 6.41 [facility] WBC (Bld) [#/Vol] 10.8 10*3/uL [facility] Creatinineon 04-11-2022 Creatinine [Mass/Vol] 2.38 mg/dL High 0.5 - 0.9 mg/dL [facility] GFR 25 mL/min Low 60 - PI NF mL/min [facility] GFR Non- 21 mL/min Low 60 - PINF mL/min [facility] Interpretation and review of laboratory results Abnormal [facility] Hepatic Function Panelon Albumin [Mass/Vol] 4.5 g/dL 3.5 - 5.2 g/dL [facility] Albumin/Globulin [Mass ratio] 1.5 {ratio} 1 - 2.5 [facility] ALP (Bld) [Catalytic activity/Vol] 106 U/L High 35 - 104 U/L [facility] ALT [Catalytic activity/Vol] 16 U/L 5 - 33 U/L [facility] AST [Catalytic activity/Vol] 18 U/L NINF - 32 U/L [facility] Bilirubin [Mass/Vol] 0.2 mg/dL Low 0.3 - 1 .2 mg/dL [facility] Bilirubin, Indirect Can not be calculated 0 - 1 mg/dL [facility] Bilirubin.indirect [Mass/Vol] mg/dL NINF - 0.31 mg/dL [facility] Free PSA/Total PSA [Mass fraction] 7.5 g/dL 6.4 - 8.3 g/dL [facility] Interpretation and review of laboratory results Abnormal [facility] Laboratory - Chemistry and C hemistry - challengeon 04-11-2022 GFR/1.73 sq M.predicted MDRD (S/P/Bld) [Vol rate/Area] [facility] Comment on above: Average GFR for 50-5 9 years old: 93 mL/min/1.73sq m Chronic Kidney Disease: <60 mL/min/1.73sq m Kidney failure: <15 mL/min/1.73sq m eGFR calculated using average adult body mass. Additional eGFR calculator available at: http://www.[employer]/multiple_crcl_2012.htm Stage 1: Some kidney damage normal GFR Stage 2: Mild kidney damage GFR 60-89 Stage 3: Moderate kidney damage GFR 30-59 Stage 4: Severe kidney damage GFR 15-29 Stage 5: Severe kidney damage GFR <15 ESRD - chronic treatment by dialysis or transplant Sedimentation Rateon 022 Sed Rate 12 [facility] CBC with Auto Differentialon 02-15-2022 Absolute Eos # 0.17 [facility] Absolute Immature Granulocyte [facility] Absolute Lymph # 2[facility]35 [facility] Absolute Lucas # 0.82 [facility] RS [facility] Basophils (Bld) [#/Vol] 0.04 10*3/uL [facility] Basophils/100 WBC (Bld) 1 % 0 - 2 % [facility] Eosinophils/100 WBC (Bld) 3 % 1 - 4 % [facility] Hematocrit (Bld) [Volume fraction] 36.8 % 36.3 - 47.1 % [facility] Hemoglobin (Bld) [Mass/Vol] 12.1 g/dL 11.9 - 15.1 g/dL [facility] Immature granulocytes/100 WBC (Bld) 0 % 0 [facility] Interpretation and review of laboratory results Abnormal [facility] Lymphocytes/100 WBC (Bld) 43 % 24 - 43 % [facility] MCH (RBC) [Entitic mass] 28.5 pg 25.2 - 33.5 pg [facility] MCHC (RBC) [Mass/Vol] 32.9 g/dL 28.4 - 34.8 g/dL [facility] MCV (RBC) [Entitic vol] 86.8 fL 82.6 - 102.9 fL [facility] Monocytes/100 WBC (Bld) 15 % High 3 - 12 % [facility] NRBC Automated 0.0 0.0 per 100 WBC [facility] Platelet distribution width (Bld) [Ratio] 13.5 % 11.8 - 14.4 % [facility] Platelet mean volume (Bld) [Entitic vol] 10.0 fL 8.1 - 13.5 fL [facility] Platelets (Bld) [#/Vol] 304 10*3/uL [facility] RBC (Bld) [#/Vol] 4.24 10*6/uL 3.95 - 5.1 1 m/uL [facility] Segmented neutrophils/100 WBC (Bld) 38 % 36 - 65 % [facility] Segs Absolute 2.10 [facility] WBC (Bld) [#/Vol] 5.5 10*3/uL [facility] Creatinineon 02-15-2022 Creatinine [Mass/Vol] 1.2 mg/dL High 0.5 - 0.9 mg/dL [facility] GFR 56 mL/min Low 60 - PI NF mL/min [facility] GFR Non- 46 mL/min Low 60 - PINF mL/min [facility] Hepatic Function Panelon Albumin [Mass/Vol] 4.5 g/dL 3.5 - 5.2 g/dL [facility] Albumin/Globulin [Mass ratio] 1.5 {ratio} 1 - 2.5 [facility] ALP (Bld) [Catalytic activity/Vol] 96 U/L 35 - 104 U/L [facility] ALT [Catalytic activity/Vol] 15 U/L 5 - 33 U/L [facility] AST [Catalytic activity/Vol] 25 U/L NINF - 32 U/L [facility] Bilirubin [Mass/Vol] 0.19 mg/dL Low 0.3 - 1 .2 mg/dL [facility] Bilirubin, Indirect Can not be calculated 0 - 1 mg/dL [facility] Bilirubin.indirect [Mass/Vol] mg/dL NINF - 0.31 mg/dL [facility] Free PSA/Total PSA [Mass fraction] 7.6 g/dL 6.4 - 8.3 g/dL [facility] Laboratory - Chemistry and C hemistry - challengeon 02-15-2022 GFR/1.73 sq M.predicted MDRD (S/P/Bld) [Vol rate/Area] [facility] Comment on above: Average GFR for 50-5 9 years old: 93 mL/min/1.73sq m Chronic Kidney Disease: <60 mL/min/1.73sq m Kidney failure: <15 mL/min/1.73sq m eGFR calculated using average adult body mass. Additional eGFR calculator available at: http://www.[employer]/multiple_crcl_2012.htm Stage 1: Some kidney damage normal GFR Stage 2: Mild kidney damage GFR 60-89 Stage 3: Moderate kidney damage GFR 30-59 Stage 4: Severe kidney damage GFR 15-29 Stage 5: Severe kidney damage GFR <15 ESRD - chronic treatment by dialysis or transplant No Panel Informationon 02-15 Interpretation and review of laboratory results Abnormal [facility] Sedimentation Rateon 022 Sed Rate 23 [facility] Patient Educationon 02-10-20 22 Patient Education [...] Take ove (more content not included)... Normal [facility] Reminderson 02-09-2022 Reminders - From: Lynda Boland To: EU - Recalls Joe; Sent: 02/09/2022 10:23:42 EDT Show up: 12/27/2022 10:23:00 EDT Subject: Recall for Renal US Due Date/Time: 01/26/2023 10:23:00 EDT Reminder/Recall Pleas call and schedule Patient for her SUSAN prior to 02/04/23 follow up. Normal [facility] Urology Office/Clinic Noteon 02-09-2022 Urology Office/Clinic [...] JIMENEZ, Frank Lea, URL In [address] [place] [id number]- Additional Instructions: w/ renal US Patient Education [...] Comments SARS-CoV-2 (COVID-19) Ad26 vaccine 11/15/2020 Recorded [facility] Lab Results Ambulatory Point of Care Results Bilirubin Urine Dipstick: Negative (02/09/22 09:55:00) Blood Urine Dipstick: Negative (02/09/22 09:55:00) Glucose Urine Dipstick: Negative (02/09/22 09:55:00) Ketones Urine Dipstick: Negative (02/09/22 09:55:00) Leukocytes Urine Dipstick: (more content not included)... Normal [facility] Comment on above: Result Comment: Elec tronically Signed By: Frank JOE MD\.br\Date and Time Signed: 02/09/22 10:18 EDT\.br\Electronically Co-Signed By: Kayli Garrido.br\Date and Time Co-Signed: 02/09/22 10:16 EDT C3 Complementon 11-27-2021 Complement C3 132 mg/dL 90 - 180 mg/dL [facility] [employer] C4 Complementon 11-27-2021 Complement C4 34 mg/dL 10 - 40 mg/dL [facility] [employer] CT CHEST HIGH RESOLUTIONon 0 11-27-2021 Radiology [...] favoring cysts. Soft Tissues/Bones: No significant findings. [facility] RIS CONSOLIDATED Obinna Travis MD - 11/27/2021 [...] 3. Calcified atheromatous plaque and coronary calcification. [facility] Work Phone: CT CHEST HIGH RESOLUTIONOrde red By: Obinna Travis on 11-27-2021 [facility] Work Phone: No Panel Informationon 11-27 [facility] Urinalysis with Microscopico n 11-27-2021 - [facility] Bacteria, UA 2+ Abnormal None [facility] Bilirubin Urine Negative NEGATIVE [facility] lth Color, UA Yellow Yellow [facility] Epithelial Cells UA 0 TO 2 [facility] Glucose, Ur Negative NEGATIVE [facility] Interpretation and review of laboratory results Abnormal [facility] Ketones Ql (U) Negative NEGATIVE [facility] Leukocyte esterase Test strip Ql (U) SMALL Abnormal NEGATIVE [facility] Nitrite, Urine Negative NEGATIVE [facility] pH, UA 5.5 [facility] Protein, UA Negative NEGATIVE [facility] RBC, UA None [facility] Specific [place], UA 1.020 [facility] Turbidity UA Clear Clear [facility] Urine Hgb Negative NEGATIVE [facility] Urobilinogen, Urine Normal Normal [facility] WBC, UA 5 TO 10 [facility] CBC with Auto Differentialon 10-03-2021 Absolute Eos # 0.39 [facility] Absolute Immature Granulocyte 0.04 [facility] Absolute Lymph # 2.70 [facility] alth Absolute Lucas # 0.91 [facility] Basophils (Bld) [#/Vol] 0.08 10*3/uL [facility] Basophils/100 WBC (Bld) 1 % 0 - 2 % M [facility] Eosinophils/100 WBC (Bld) 4 % 1 - 4 % [facility] Hematocrit (Bld) [Volume fraction] 35.9 % Low 36.3 - 47.1 % [facility] Hemoglobin.gastrointest inal spec 1 Ql (Stl) 11.4 g/dL Low 11.9 - 15.1 g/dL [facility] Immature granulocytes/100 WBC (Bld) 0 % 0 [facility] Interpretation and review of laboratory results Abnormal [facility] Lymphocytes/100 WBC (Bld) 27 % 24 - 43 % [facility] MCH (RBC) [Entitic mass] 28.2 pg 25.2 - 33.5 pg [facility] MCHC (RBC) [Mass/Vol] 31.8 g/dL 28.4 - 34.8 g/dL [facility] MCV (RBC) [Entitic vol] 88.9 fL 82.6 - 102.9 fL [facility] Monocytes/100 WBC (Bld) 9 % 3 - 12 % M [facility] NRBC Automated 0.0 0.0 per 100 WBC [facility] Platelet distribution width (Bld) [Ratio] 14.7 % High 11.8 - 14.4 % [facility] Platelet mean volume (Bld) [Entitic vol] 10.5 fL 8.1 - 13.5 fL [facility] Platelets (Bld) [#/Vol] 327 10*3/uL [facility] RBC (Bld) [#/Vol] 4.04 10*6/uL 3.95 - 5.1 1 m/uL [facility] Segmented neutrophils/100 WBC (Bld) 59 % 36 - 65 % [facility] Segs [facility] 6.03 [facility] [#/Vol] 10.2 10*3/uL [facility] Creatinineon 10-03-2021 Creatinine [Mass/Vol] 1.24 mg/dL High 0.50 - 0.90 mg/dL [facility] GFR 54 mL/min Low >60 [facility] GFR Non- 45 mL/min Low >60 [facility] Interpretation and review of laboratory results Abnormal [facility] Hepatic Function Panelon Albumin [Mass/Vol] 4.2 g/dL 3.5 - 5.2 g/dL [facility] Albumin/Globulin [Mass ratio] 1.4 {ratio} [facility] ALP (Bld) [Catalytic activity/Vol] 113 U/L High 35 - 104 U/L [facility] ALT [Catalytic activity/Vol] 11 U/L 5 - 33 U/L [facility] AST [Catalytic activity/Vol] 22 U/L <32 [facility] Bilirubin [Mass/Vol] mg/dL Low 0.3 - 1 .2 mg/dL [facility] Bilirubin, Indirect Can not be calculated 0.00 - 1.00 mg/dL [facility] Bilirubin.indirect [Mass/Vol] mg/dL <0.31 mg/dL [facility] Free PSA/Total PSA [Mass fraction] 7.1 g/dL 6.4 - 8.3 g/dL [facility] Interpretation and review of laboratory results Abnormal [facility] Laboratory - Chemistry and C hemistry - challengeon 10-03-2021 GFR/1.73 sq M.predicted MDRD (S/P/Bld) [Vol rate/Area] [facility] [employer] Comment on above: Average GFR for 50-5 9 years old: 93 mL/min/1.73sq m Chronic Kidney Disease: <60 mL/min/1.73sq m Kidney failure: <15 mL/min/1.73sq m eGFR calculated using average adult body mass. Additional eGFR calculator available at: http://www.[employer]/multiple_crcl_2011.htm Stage 1: Some kidney damage normal GFR Stage 2: Mild kidney damage GFR 60-89 Stage 3: Moderate kidney damage GFR 30-59 Stage 4: Severe kidney damage GFR 15-29 Stage 5: Severe kidney damage GFR <15 ESRD - chronic treatment by dialysis or transplant Sedimentation Rateon 022 Sed Rate 18 mm 0 - 30 mm [facility] [employer] CBC Auto DifferentialOrdered By: Vinicius Bullock on 05-30-2021 Absolute Eos # 0.17 [employer] [facility] Work Phone: Absolute Immature Granulocyte 0.05 [facility] Work Phone: Absolute Lymph # 2.36 [facility] CenterSocial[facility] Work Phone: Absolute Lucas # 0.75 [facility] Work Phone: Basophils (Bld) [#/Vol] 0.06 10*3/uL [facility] Work Phone: Basophils/100 WBC (Bld) 1 % 0 - 2 % M [facility] [employer] Work Phone: Differential Type NOT REPORTED [facility] Work Phone: Eosinophils/100 WBC (Bld) 2 % 1 - 4 % [facility] Work Phone: Hematocrit (Bld) [Volume fraction] 37.1 % 36.3 - 47.1 % [facility] Work Phone: Hemoglobin.gastrointest inal spec 1 Ql (Stl) 12.0 g/dL 11.9 - 15.1 g/dL [employer] Phone: Immature granulocytes/100 WBC (Bld) 1 % High 0 [employer] Phone: Interpretation and review of laboratory results Abnormal [employer] Phone: Lymphocytes/100 WBC (Bld) 22 % Low 24 - 43 % [employer] Phone: MCH (RBC) [Entitic mass] 27.8 pg 25.2 - 33.5 pg [employer] Phone: MCHC (RBC) [Mass/Vol] 32.3 g/dL 28.4 - 34.8 g/dL [employer] Phone: MCV (RBC) [Entitic vol] 86.1 fL 82.6 - 102.9 fL [employer] Phone: Monocytes/100 WBC (Bld) 7 % 3 - 12 % M [employer] Phone: NRBC Automated 0.0 0.0 per 100 WBC [employer] Phone: Platelet distribution width (Bld) [Ratio] 13.9 % 11.8 - 14.4 % [employer] Phone: Platelet Estimate NOT REPORTED [employer] Phone: Platelet mean volume (Bld) [Entitic vol] 10.3 fL 8.1 - 13.5 fL [employer] Phone: Platelets (Bld) [#/Vol] 316 10*3/uL [employer] Phone: RBC (Bld) [#/Vol] 4.31 10*6/uL 3.95 - 5.1 1 m/uL [employer] Phone: RBC (Bld) [#/Vol] NOT REPORTED [employer] Phone: Segmented neutrophils/100 WBC (Bld) 67 % High 36 - 65 % [employer] Phone: Segs Absolute 7.58 [employer] Work Phone: WBC (Bld) [#/Vol] 11.0 10*3/uL [employer] Phone: WBC (Bld) [#/Vol] NOT REPORTED [employer] Work Phone: [employer] Work Phone: Creatinine, SerumOrdered By: Vinicius Bullock on 05-30-2021 Creatinine [Mass/Vol] 1.22 mg/dL High 0.50 - 0.90 mg/dL [employer] Phone: GFR 55 mL/min Low >60 [employer] Phone: GFR Non- 45 mL/min Low >60 [employer] Phone: Interpretation and review of laboratory results Abnormal [employer] Phone: [employer] Phone: Hepatic Function PanelOrdere d By: Vinicius Bullock on 05-30-2021 Albumin [Mass/Vol] 4.4 g/dL 3.5 - 5.2 g/dL [employer] Phone: Albumin/Globulin [Mass ratio] 1.4 {ratio} [employer] Phone: ALP (Bld) [Catalytic activity/Vol] 98 U/L 35 - 104 U/L [employer] Phone: ALT [Catalytic activity/Vol] 15 U/L 5 - 33 U/L [employer] Phone: AST [Catalytic activity/Vol] 24 U/L <32 [employer] Phone: Bilirubin [Mass/Vol] mg/dL Low 0.3 - 1 .2 mg/dL [employer] Phone: Bilirubin, Indirect CANNOT BE CALCULATED 0.00 - 1.00 mg/dL [employer] Phone: Bilirubin.indirect [Mass/Vol] mg/dL <0.31 mg/dL [employer] Phone: Free PSA/Total PSA [Mass fraction] 7.5 g/dL 6.4 - 8.3 g/dL [employer] Phone: Globulin NOT REPORTED 1.5 - 3.8 g/dL [employer] Phone: Interpretation and review of laboratory results Abnormal [employer] Phone: [employer] Phone: Laboratory - Chemistry and C hemistry - challengeOrdered By: Vinicius Bullock on 05-30-2021 GFR/1.73 sq M.predicted MDRD (S/P/Bld) [Vol rate/Area] [employer] Phone: Comment on above: Average GFR for 50-5 9 years old: 93 mL/min/1.73sq m Chronic Kidney Disease: <60 mL/min/1.73sq m Kidney failure: <15 mL/min/1.73sq m eGFR calculated using average adult body mass. Additional eGFR calculator available at: http://www.[employer]/multiple_crcl_2012.htm Stage 1: Some kidney damage normal GFR Stage 2: Mild kidney damage GFR 60-89 Stage 3: Moderate kidney damage GFR 30-59 Stage 4: Severe kidney damage GFR 15-29 Stage 5: Severe kidney damage GFR <15 ESRD - chronic treatment by dialysis or transplant Sedimentation RateOrdered By : Vinicius Bullock on 05-30-2021 Interpretation and review of laboratory results Abnormal [employer] Phone: Sed Rate 25 mm High 0 - 20 mm [employer] Phone: [employer] Phone: CBC Auto DifferentialOrdered By: Vinicius Bullock on 04-04-2021 Absolute Eos # 0.09 [employer] [facility] Work Phone: Absolute Immature Granulocyte 0.04 [employer] Work Phone: Absolute Lymph # 2.65 [employer] [facility] Work Phone: Absolute Lucas # 0.80 [employer] Work Phone: Basophils (Bld) [#/Vol] 0.08 10*3/uL [employer] Work Phone: Basophils/100 WBC (Bld) 1 % 0 - 2 % M [employer] Work Phone: Differential Type NOT REPORTED [employer] Phone: Eosinophils/100 WBC (Bld) 1 % 1 - 4 % [employer] Phone: Hematocrit (Bld) [Volume fraction] 40.0 % 36.3 - 47.1 % [employer] Work Phone: Hemoglobin.gastrointest inal spec 1 Ql (Stl) 12.9 g/dL 11.9 - 15.1 g/dL [employer] Phone: Immature granulocytes/100 WBC (Bld) 0 % 0 [employer] Phone: Lymphocytes/100 WBC (Bld) 25 % 24 - 43 % [employer] Phone: MCH (RBC) [Entitic mass] 27.4 pg 25.2 - 33.5 pg [employer] Phone: MCHC (RBC) [Mass/Vol] 32.3 g/dL 28.4 - 34.8 g/dL [employer] Phone: MCV (RBC) [Entitic vol] 84.9 fL 82.6 - 102.9 fL [employer] Phone: Monocytes/100 WBC (Bld) 8 % 3 - 12 % M [employer] Work Phone: NRBC Automated 0.0 0.0 per 100 WBC [employer] Phone: Platelet distribution width (Bld) [Ratio] 14.2 % 11.8 - 14.4 % [employer] Phone: Platelet Estimate NOT REPORTED [employer] Phone: Platelet mean volume (Bld) [Entitic vol] 10.1 fL 8.1 - 13.5 fL [employer] Phone: Platelets (Bld) [#/Vol] 314 10*3/uL [employer] Phone: RBC (Bld) [#/Vol] 4.71 10*6/uL 3.95 - 5.1 1 m/uL [employer] Phone: RBC (Bld) [#/Vol] NOT REPORTED [employer] Phone: Segmented neutrophils/100 WBC (Bld) 65 % 36 - 65 % [employer] Phone: Segs Absolute 6.90 [employer] Work Phone: WBC (Bld) [#/Vol] 10.6 10*3/uL [employer] Phone: WBC (Bld) [#/Vol] NOT REPORTED [employer] Phone: [employer]That Phone: Creatinine, SerumOrdered By: Vinicius Bullock on 04-04-2021 Creatinine [Mass/Vol] 1.47 mg/dL High 0.50 - 0.90 mg/dL [employer] Phone: GFR 45 mL/min Low >60 [employer] Phone: GFR Non- 37 mL/min Low >60 [employer] Phone: Interpretation and review of laboratory results Abnormal [employer] Phone: [employer] Phone: Hepatic Function PanelOrdere d By: Vinicius Bullock on 04-04-2021 Albumin [Mass/Vol] 4.2 g/dL 3.5 - 5.2 g/dL [employer] Phone: Albumin/Globulin [Mass ratio] 1.4 {ratio} [employer] Phone: ALP (Bld) [Catalytic activity/Vol] 95 U/L 35 - 104 U/L [employer] Phone: ALT [Catalytic activity/Vol] 14 U/L 5 - 33 U/L [employer] Phone: AST [Catalytic activity/Vol] 24 U/L <32 [employer] Phone: Bilirubin [Mass/Vol] mg/dL Low 0.3 - 1 .2 mg/dL [employer] Phone: Bilirubin, Indirect CANNOT BE CALCULATED 0.00 - 1.00 mg/dL [employer] Phone: Bilirubin.indirect [Mass/Vol] mg/dL <0.31 mg/dL [employer] Phone: Free PSA/Total PSA [Mass fraction] 7.2 g/dL 6.4 - 8.3 g/dL [employer] Phone: Globulin NOT REPORTED 1.5 - 3.8 g/dL [employer] Phone: Interpretation and review of laboratory results Abnormal [employer] Phone: Bring[employer]That Phone: Laboratory - Chemistry and C hemistry - challengeOrdered By: Vinicius Bullock on 04-04-2021 GFR/1.73 sq M.predicted MDRD (S/P/Bld) [Vol rate/Area] [employer]That Phone: Comment on above: Average GFR for 50-5 9 years old: 93 mL/min/1.73sq m Chronic Kidney Disease: <60 mL/min/1.73sq m Kidney failure: <15 mL/min/1.73sq m eGFR calculated using average adult body mass. Additional eGFR calculator available at: http://www.Giphy.com/multiple_crcl_2012.htm Stage 1: Some kidney damage normal GFR Stage 2: Mild kidney damage GFR 60-89 Stage 3: Moderate kidney damage GFR 30-59 Stage 4: Severe kidney damage GFR 15-29 Stage 5: Severe kidney damage GFR <15 ESRD - chronic treatment by dialysis or transplant Sedimentation RateOrdered By : Vinicius Bullock on 04-04-2021 Sed Rate 13 mm 0 - 20 mm [employer] Phone: BringMeThat Phone: XR ABDOMEN (KUB) (SINGLE AP VIEW)Ordered By: Frank Joe on 02-21-2021 Unremarkable abdominal radiographs without acute abnormality. [employer]That Phone: EXAMINATION: ONE SUPINE XRAY VIEW(S) OF THE ABDOMEN 02/21/2021 7:33 am COMPARISON: Abdominal radiographs performed 11/10/2019. HISTORY: ORDERING SYSTEM PROVIDED HISTORY: Urinary urgency FINDINGS: There is a nonobstructive bowel gas pattern. There is no intraperitoneal free air. There are no suspicious calcifications. Stable phleboliths are seen in the pelvis. There is no acute osseous abnormality. The surrounding soft tissues are unremarkable. [employer]MeThat Phone: [place], [facility] Incoming Radiant Results From [employer] (T/A) - 02/21/2021 8:40 AM EDT EXAMINATION: ONE [...] IMPRESSION: Unremarkable abdominal radiographs without acute abnormality. [employer]That Phone: BringMeThat Phone: CBC Auto DifferentialOrdered By: Vinicius Bullock on 02-07-2021 Absolute Eos # 0.41 [employer] [facility] Work Phone: Absolute Immature Granulocyte 0.05 [facility] Work Phone: Absolute Lymph # 2.39 [employer] [facility] Work Phone: Absolute Lucas # 0.91 [employer] Work Phone: Basophils (Bld) [#/Vol] 0.08 10*3/uL [employer] Work Phone: Basophils/100 WBC (Bld) 1 % 0 - 2 % [facility] Work Phone: Differential Type NOT REPORTED [employer] Phone: Eosinophils/100 WBC (Bld) 4 % 1 - 4 % [employer] Phone: Hematocrit (Bld) [Volume fraction] 36.4 % 36.3 - 47.1 % [employer] Phone: Hemoglobin.gastrointest inal spec 1 Ql (Stl) 11.2 g/dL Low 11.9 - 15.1 g/dL [employer] Phone: Immature granulocytes/100 WBC (Bld) 1 % High 0 [employer] Phone: Interpretation and review of laboratory results Abnormal [employer] Phone: Lymphocytes/100 WBC (Bld) 26 % 24 - 43 % [employer] Phone: MCH (RBC) [Entitic mass] 27.0 pg 25.2 - 33.5 pg [employer] Phone: MCHC (RBC) [Mass/Vol] 30.8 g/dL 28.4 - 34.8 g/dL [employer] Phone: MCV (RBC) [Entitic vol] 87.7 fL 82.6 - 102.9 fL [employer] Phone: Monocytes/100 WBC (Bld) 10 % 3 - 12 % M [employer] Work Phone: NRBC Automated 0.0 0.0 per 100 WBC [employer] Phone: Platelet distribution width (Bld) [Ratio] 14.5 % High 11.8 - 14.4 % [employer] Phone: Platelet Estimate NOT REPORTED [employer] Phone: Platelet mean volume (Bld) [Entitic vol] 10.0 fL 8.1 - 13.5 fL [employer] Phone: Platelets (Bld) [#/Vol] 390 10*3/uL [employer] Phone: RBC (Bld) [#/Vol] 4.15 10*6/uL 3.95 - 5.1 1 m/uL [employer] Work Phone: RBC (Bld) [#/Vol] NOT REPORTED [employer] Phone: Segmented neutrophils/100 WBC (Bld) 58 % 36 - 65 % [employer] Phone: Segs Absolute 5.47 [employer] Work Phone: WBC (Bld) [#/Vol] 9.3 10*3/uL [employer] Work Phone: WBC (Bld) [#/Vol] NOT REPORTED [employer] Phone: [employer]That Phone: Creatinine, SerumOrdered By: Vinicius Bullock on 02-07-2021 Creatinine [Mass/Vol] 1.25 mg/dL High 0.50 - 0.90 mg/dL [employer] Phone: GFR 54 mL/min Low >60 [employer] Work Phone: GFR Non- 44 mL/min Low >60 [employer] Phone: Interpretation and review of laboratory results Abnormal [employer] Phone: [employer] Phone: Hepatic Function PanelOrdere d By: Vinicius Bullock on 02-07-2021 Albumin [Mass/Vol] 4 g/dL 3.5 - 5.2 g/dL [employer] Phone: Albumin/Globulin [Mass ratio] 1.1 {ratio} [employer] Phone: ALP (Bld) [Catalytic activity/Vol] 95 U/L 35 - 104 U/L [employer] Phone: ALT [Catalytic activity/Vol] 13 U/L 5 - 33 U/L [employer] Phone: AST [Catalytic activity/Vol] 22 U/L <32 [employer] Phone: Bilirubin [Mass/Vol] mg/dL Low 0.3 - 1 .2 mg/dL [employer] Phone: Bilirubin, Indirect CANNOT BE CALCULATED 0.00 - 1.00 mg/dL [employer] Phone: Bilirubin.indirect [Mass/Vol] mg/dL <0.31 mg/dL [employer] Phone: Free PSA/Total PSA [Mass fraction] 7.5 g/dL 6.4 - 8.3 g/dL [employer] Phone: Globulin NOT REPORTED 1.5 - 3.8 g/dL [employer] Phone: Interpretation and review of laboratory results Abnormal [employer] Phone: BringMeThat Phone: Laboratory - Chemistry and C hemistry - challengeOrdered By: Vinicius Bullock on 02-07-2021 GFR/1.73 sq M.predicted MDRD (S/P/Bld) [Vol rate/Area] [employer] Phone: Comment on above: Average GFR for 50-5 9 years old: 93 mL/min/1.73sq m Chronic Kidney Disease: <60 mL/min/1.73sq m Kidney failure: <15 mL/min/1.73sq m eGFR calculated using average adult body mass. Additional eGFR calculator available at: http://www.[employer]/multiple_crcl_2012.htm Stage 1: Some kidney damage normal GFR Stage 2: Mild kidney damage GFR 60-89 Stage 3: Moderate kidney damage GFR 30-59 Stage 4: Severe kidney damage GFR 15-29 Stage 5: Severe kidney damage GFR <15 ESRD - chronic treatment by dialysis or transplant Sedimentation RateOrdered By : Vinicius Bullock on 02-07-2021 Interpretation and review of laboratory results Abnormal [employer] Phone: Sed Rate 62 mm High 0 - 20 mm [employer] Phone: [employer] Work Phone: CBC Auto DifferentialOrdered By: Vinicius Bullock on 12-13-2020 Absolute Eos # 0.30 [employer] [facility] Work Phone: Absolute Immature Granulocyte 0.08 [facility] Work Phone: Absolute Lymph # 2.93 [facility] Work Phone: Absolute Lucas # 1.04 [employer] [facility] Work Phone: Basophils (Bld) [#/Vol] 0.08 10*3/uL [employer] Work Phone: Basophils/100 WBC (Bld) 1 % 0 - 2 % [facility] Phone: Differential Type NOT REPORTED [employer] Phone: Eosinophils/100 WBC (Bld) 2 % 1 - 4 % [facility] Phone: Hematocrit (Bld) [Volume fraction] 37.6 % 36.3 - 47.1 % [employer] Phone: Hemoglobin.gastrointest inal spec 1 Ql (Stl) 12.0 g/dL 11.9 - 15.1 g/dL [employer] Phone: Immature granulocytes/100 WBC (Bld) 1 % High 0 [employer] Phone: Interpretation and review of laboratory results Abnormal [employer] Phone: Lymphocytes/100 WBC (Bld) 21 % Low 24 - 43 % [employer] Phone: MCH (RBC) [Entitic mass] 27.8 pg 25.2 - 33.5 pg [employer] Phone: MCHC (RBC) [Mass/Vol] 31.9 g/dL 28.4 - 34.8 g/dL [employer] Phone: MCV (RBC) [Entitic vol] 87.0 fL 82.6 - 102.9 fL [employer] Phone: Monocytes/100 WBC (Bld) 7 % 3 - 12 % M [employer] Phone: NRBC Automated 0.0 0.0 per 100 WBC [employer]That Phone: Platelet distribution width (Bld) [Ratio] 13.1 % 11.8 - 14.4 % [employer] Phone: Platelet Estimate NOT REPORTED [employer] Phone: Platelet mean volume (Bld) [Entitic vol] 9.7 fL 8.1 - 13.5 fL [employer] Phone: Platelets (Bld) [#/Vol] 345 10*3/uL [employer] Phone: RBC (Bld) [#/Vol] 4.32 10*6/uL 3.95 - 5.1 1 m/uL [employer] Phone: RBC (Bld) [#/Vol] NOT REPORTED [employer] Phone: Segmented neutrophils/100 WBC (Bld) 68 % High 36 - 65 % [employer] Phone: Segs Absolute 9.87 High [employer] Work Phone: WBC (Bld) [#/Vol] 14.3 10*3/uL High [employer] Phone: WBC (Bld) [#/Vol] NOT REPORTED [employer] Phone: [employer] Phone: Creatinine, SerumOrdered By: Vinicius Bullock on 12-13-2020 Creatinine [Mass/Vol] 1.48 mg/dL High 0.50 - 0.90 mg/dL [employer] Phone: GFR 44 mL/min Low >60 [employer] Phone: GFR Non- 36 mL/min Low >60 [employer] Phone: Interpretation and review of laboratory results Abnormal [employer] Phone: [employer] Phone: Hepatic Function PanelOrdere d By: Vinicius Bullock on 12-13-2020 Albumin [Mass/Vol] 4.2 g/dL 3.5 - 5.2 g/dL [employer] Phone: Albumin/Globulin [Mass ratio] 1.1 {ratio} [employer] Phone: ALP (Bld) [Catalytic activity/Vol] 86 U/L 35 - 104 U/L [employer] Phone: ALT [Catalytic activity/Vol] 12 U/L 5 - 33 U/L [employer] Phone: AST [Catalytic activity/Vol] 21 U/L <32 [employer] Phone: Bilirubin [Mass/Vol] mg/dL Low 0.3 - 1 .2 mg/dL [employer] Phone: Bilirubin, Indirect CANNOT BE CALCULATED 0.00 - 1.00 mg/dL [employer] Phone: Bilirubin.indirect [Mass/Vol] mg/dL <0.31 mg/dL [employer] Phone: Free PSA/Total PSA [Mass fraction] 7.9 g/dL 6.4 - 8.3 g/dL [employer] Phone: Globulin NOT REPORTED 1.5 - 3.8 g/dL [employer] Phone: Interpretation and review of laboratory results Abnormal [employer] Phone: [employer]That Phone: Laboratory - Chemistry and C hemistry - challengeOrdered By: Vinicius Bullock on 12-13-2020 GFR/1.73 sq M.predicted MDRD (S/P/Bld) [Vol rate/Area] [employer]That Phone: Comment on above: Average GFR for 50-5 9 years old: 93 mL/min/1.73sq m Chronic Kidney Disease: <60 mL/min/1.73sq m Kidney failure: <15 mL/min/1.73sq m eGFR calculated using average adult body mass. Additional eGFR calculator available at: http://www.[employer]/multiple_crcl_2011.htm Stage 1: Some kidney damage normal GFR Stage 2: Mild kidney damage GFR 60-89 Stage 3: Moderate kidney damage GFR 30-59 Stage 4: Severe kidney damage GFR 15-29 Stage 5: Severe kidney damage GFR <15 ESRD - chronic treatment by dialysis or transplant Sedimentation RateOrdered By : Vinicius Bullock on 12-13-2020 Interpretation and review of laboratory results Abnormal [employer] Phone: Sed Rate 54 mm High 0 - 20 mm [employer] Phone: [employer] Phone: CBC Auto Differentialon 09-26 Basophils (Bld) [#/Vol] 0.06 10*3/uL [employer] Phone: Basophils/100 WBC (Bld) 1 % 0 - 2 % [facility] Phone: Differential Type NOT REPORTED [employer] Phone: Eosinophils (Bld) [#/Vol] 0.33 10*3/uL [employer] Phone: Eosinophils/100 WBC (Bld) 4 % 1 - 4 % [employer] Phone: Erythrocyte distribution width (RBC) [Ratio] 13.3 % 11.8 - 14.4 % [employer] Phone: Hematocrit (Bld) [Volume fraction] 39.0 % 36.3 - 47.1 % [employer] Phone: Hemoglobin (Bld) [Mass/Vol] 12.3 g/dL 11.9 - 15.1 g/dL [employer] Phone: Immature granulocytes (Bld) [#/Vol] 0 % 0 [employer] Phone: Immature granulocytes (Bld) [#/Vol] 0.04 10*3/uL [employer] Phone: Lymphocytes (Bld) [#/Vol] 2.45 10*3/uL [employer] Phone: Lymphocytes/100 WBC (Bld) 27 % 24 - 43 % [employer] Phone: MCH (RBC) [Entitic mass] 27.8 pg 25.2 - 33.5 pg [employer] Phone: MCHC (RBC) [Mass/Vol] 31.5 g/dL 28.4 - 34.8 g/dL [employer] Phone: MCV (RBC) [Entitic vol] 88.2 fL 82.6 - 102.9 fL [employer] Work Phone: Monocytes (Bld) [#/Vol] 0.79 10*3/uL [employer] Work Phone: Monocytes/100 WBC (Bld) 9 % 3 - 12 % [facility] Phone: Platelet mean volume (Bld) [Entitic vol] 10.4 fL 8.1 - 13.5 fL [employer] Work Phone: Platelets (Bld) [#/Vol] 284 10*3/uL [employer] Work Phone: Platelets (Bld) [#/Vol] NOT REPORTED [employer] Phone: RBC (Bld) [#/Vol] 4.42 10*6/uL 3.95 - 5.1 1 m/uL [employer] Phone: RBC morphology finding Nom (Bld) NOT REPORTED [facility] Phone: Segmented neutrophils/100 WBC (Bld) 59 % 36 - 65 % [facility] Phone: Segs Absolute 5.38 [employer] [facility] Work Phone: WBC (Bld) [#/Vol] 9.1 10*3/uL [employer] Work Phone: WBC (Bld) [#/Vol] 0.0 10*3/uL 0.0 per 10 0 WBC [employer] Phone: WBC Morphology NOT REPORTED [employer] [facility] Work Phone: Creatinine, Serumon 10-14-19 Creatinine [Mass/Vol] 1.45 mg/dL High 0.50 - 0.90 mg/dL [employer] Phone: GFR 45 mL/min Low >60 [employer] Work Phone: GFR Non- 37 mL/min Low >60 [employer] Work Phone: Interpretation and review of laboratory results Abnormal [employer] Phone: Hepatic Function Panelon Albumin [Mass/Vol] 4.5 g/dL 3.5 - 5.2 g/dL [employer] Phone: Albumin/Globulin [Mass ratio] 1.3 {ratio} [employer] Phone: ALP [Catalytic activity/Vol] 93 U/L 35 - 104 U/L [employer] Phone: ALT [Catalytic activity/Vol] 12 U/L 5 - 33 U/L [employer] Phone: AST [Catalytic activity/Vol] 21 U/L <32 [employer] Phone: Bilirubin Ql (U) <0.10 Low 0.3 - 1.2 mg/dL [employer] Phone: Bilirubin, Indirect CANNOT BE CALCULATED 0.00 - 1.00 mg/dL [employer] Phone: Bilirubin.direct [Mass/Vol] mg/dL <0.31 mg/dL [employer] Phone: Globulin (S) [Mass/Vol] NOT REPORTED 1.5 - 3.8 g/dL [employer] Phone: Interpretation and review of laboratory results Abnormal [employer] Phone: Protein [Mass/Vol] 7.9 g/dL 6.4 - 8.3 g/dL [employer] Phone: Metabolic Panelon 10-13-2020 GFR/1.73 sq M predicted among non-blacks MDRD (S/P/Bld) [Vol rate/Area] [employer] Phone: Comment on above: Stage 1: Some [...] body mass. Additional eGFR calculator available at: http://www.[employer]/multiple_crcl_2012.htm Sedimentation Rateon 021 Interpretation and review of laboratory results Abnormal [employer] Work Phone: Sed Rate 25 mm High 0 - 20 mm [employer] Phone: XR ABDOMEN (KUB) (SINGLE AP VIEW)on 11-10-2019 No definite renal stones are seen. There is a 2-3 mm calcification in the pelvis on the left felt more likely to reflect a phlebolith although a distal left ureteral stone is not entirely excluded. Consider CT as clinically indicated. [facility] [place] EXAMINATION: ONE SUPINE XRAY VIEW(S) OF [...] intraperitoneal free air. No acute bony abnormalities. [facility] [place], [employer] Incoming Radiant Results From [employer] - 11/10/2019 8:02 AM EDT EXAMINATION: ONE [...] entirely excluded. Consider CT as clinically indicated. [facility], [place] FINGER LEFT MIN 2 VWSon 03-29 FINGER LEFT MIN 2 [facility] [address] [place] [address] Patient Name: SYLVIA GARAY : 1965Sex: FAge: Race: OtherMRN: [id number]. Location: OUTPPatient Status: OVisit #: [id number] Date: 04/15/2017 7:10:00 AMCompleted Date: 04/15/2017 08:31 AMRequesting Provider: OREN LOPES Attending Provider: OREN LOPES Report Copy To: Signs & Symptoms: LT THUMB IP FUSIONHistory: LT THUMB IP FUSIONComments: LT THUMB IP FUSIONExam: FINGER LEFT MIN 2 VWSAccession #: [id number] FIN SEAN LEFT MIN 2 VWS 04/15/2017 8:31 AM EDT SIGNS AND SYMPTOMS: LT THUMB IP FUSION lt thumb IP fusion fluoro time 22 secs TECHNIQUE: Intraprocedural fluoroscopy without radiologist supervision or interpretation. Electronically signed by:Mervin Rios M.D.. Transcribed by: [email or web address], User Resident: Electronically Signed by: MERVIN RIOS @ 04/15/2017 10:[address] [facility] Comment on above: Order Comment: LT TH UMB IP FUSION Operative Reporton 7 Operative Report MR#: [id number] [facility] Pt. Name: Sylvia Garay Room #: 0C Discharge Date: Birthdate: 1965 OPERATIVE REPORTDATE OF SURGERY: 04/15/2017SURGEON: Oren Lopes M.D.PREOPERATIVE DIAGNOSIS: Degenerative osteoarthritis, left thumb IP joint.POSTOPERATIVE DIAGNOSIS: Degenerative osteoarthritis, left thumb IPjoint.PROCEDURE: IP joint fusion, left thumb.FLIGHT CREW SCHEDULER: Cain Jean M.D.ANESTHESIA: Regional with an axillary block.INDICATION FOR SURGERY: Sylvia is a 51-year-old female who presented [facility] with complaints of pain and worsening deformityin her left thumb. Clinically, she has about 38-76-ahrmba ulnar deviationdeformity at the IP joint of [...] prepared andthe thumb was straight with good mtcm-sh-mynt contact. We took a guidewirefrom the Arthrex [...] extensor mechanism was reapproximated with a couple dxtexzjh-rw-lzmdp sutures of 4-0 Vicryl. The skin with a buried 4-0 Vicryland then 5-0 Novafil. Sterile dressing of Xeroform gauze, 4x4, fluffs,Araceli, and an William bandage were applied. The tourniquet was released. Allsponge and needle counts were correct at time of closure.Electronicall y Signed by:Oren Lopes M.D. 04/16/2017 12:36 P Jasmin Lopes M.D.Date Dict: 04/15/2017/10:23 A/Oren Lopes M.D.Date Trans: 04/15/2017 10:48 A/Mona_JN:[id number]: Josefa Martinez M.D. [facility] [employer] [address] [facility] [place] [place] [id number] [facility] POC GLUCOSE LABon 04-15-2017 Glucose mass conc 100 mg/dL Normal 70-100 [facility] Comment on above: Performed By: #### [id number] ####[address] [address], [facility] FINGER LEFT MIN 2 VWSon 01-26 FINGER LEFT MIN 2 VWS [facility] [address] [place] [address] Patient Name: SYLVIA GARAY : 1965Sex: FAge: Race: OtherMRN: [id number]. Location: 84Patient Status: OVisit #: [id number] Date: 02/13/2017 9:25:00 AMCompleted Date: 02/13/2017 09:28 AMRequesting Provider: BOB BROWN Attending Provider: BOB BROWN Report Copy To: Signs & Symptoms: S63.125A Dislocation of unsp interphaln joint of left thumb, init [id number]: AthenaComments: , , L thumb , , , Ordering Provider - BOB BROWN , Rendering Provider - BOB BROWN , Exam: FINGER LEFT MIN 2 VWSAccession #: [id number] FIN SEAN LEFT MIN 2 VWS 02/13/2017 9:28 AM EDT SIGNS AND SYMPTOMS: S63.125A Dislocation of unsp interphaln joint of left thumb, init I10 TECHNOLOGIST COMMENTS: pt states has history of RA, 3 months ago thumb started turning in position QUESTION FOR THE RADIOLOGIST: , , L thumb , , , Ordering Provider - TINAOPHER STEPHANIE , Rendering Provider - TINAOPHER BROWN , PROTOCOL: AP,Lateral and Oblique views [...] change. Electronically signed by:Mervin Epstein. Transcribed by: [email or web address], User Resident: Electronically Signed by: MERVIN EPSTEIN @ 02/13/2017 10:[address] [facility] Comment on above: Order Comment: , , L thumb , , , Ordering Provider - TINAOPHCONSTANTINE BROWN , Rendering Provider - RIVERER BROWN , Vital Signs Date Time Vital Sign Value Performing Clinician Facility 12-16-2023 [id number] Body height 152.4 cm [facility] 12-16-2023 09:22-0400 Body mass index (BMI) [Ratio] 32.4 kg/m2 [facility] 12-16-2023 09:22-0400 Body temperature 97.2 [degF] [facility] 12-16-2023 09:22-0400 Body weight 75.29 kg [facility] 12-16-2023 09:22-0400 Diastolic blood pressure 81 mm[Hg] [facility] 12-16-2023 09:22-0400 Heart rate 73 /min [facility] 12-16-2023 09:22-0400 Respiratory rate 20 /min [facility] 12-16-2023 09:22-0400 SaO2% (BldA) [Mass fraction] 99 % [facility] 12-16-2023 09:22-0400 Systolic blood pressure 113 mm[Hg] [facility] 12-19-2021 09:30-0400 Body height 152.4 cm Candi George Other [facility] Other 12-19-2021 09:30-0400 Body mass index (BMI) [Ratio] 34.37 kg/m2 Candi George Other [facility] Other 12-19-2021 09:30-0400 Body temperature 96.9 [degF] Candi Bernsteinyonas Other [facility] Other 12-19-2021 09:30-0400 Body weight 79.83 kg Candi Bernsteinyonas Other [facility] Other 12-19-2021 09:30-0400 Diastolic blood pressure 72 mm[Hg] Candi Bernsteinyonas Other [facility] Other 12-19-2021 09:30-0400 Respiratory rate 20 /min Candi George Other [facility] Other 12-19-2021 09:30-0400 SaO2% (BldA) [Mass fraction] 99 % Candi George Other [facility] Other 12-19-2021 09:30-0400 Systolic blood pressure 120 mm[Hg] Candi Bernsteinyonas Other [facility] Other 10-13-2020 14:25-0400 BP Diastolic 89 mm[Hg] Zakiya Knight [facility] [employer] Work Phone: 10-13-2020 14:25-0400 BP Systolic 135 mm[Hg] Zakiya Knight [employer] Work Phone: 10-13-2020 14:25-0400 Pulse (Heart Rate) 81 /min Zakiya Knight [employer] Work Phone: 10-13-2020 14:25-0400 Respiratory Rate 16 /min Zakiya Knight [employer] Work Phone: 10-13-2020 14:00-0400 Pulse Oximetry 98 % Zakiya Knight [employer] Work Phone: 10-13-2020 11:13-0400 BMI (Body Mass Index) 34.76 kg/m2 Zakiya Knight [employer] Work Phone: 10-13-2020 11:13-0400 Body Temperature 98.01 [degF] Zakiya Knight [employer] Work Phone: 10-13-2020 11:13-0400 Body weight 80.74 kg Zakiya Knight [employer] Work Phone: Encounters Encounter Date Encounter Type Care Provider Facility Start: 02-07-2024 ambulatory Frank Garcia ty:SANDOR Allen Start: 12-26-2023 End: 12-27-2023 ambulatory FLORY Do [facility] Start: 12-18-2023 End: 12-18-2023 ambulatory [facility] Start: 12-16-2023 End: 12-16-2023 ambulatory [facility] Work Phone: Start: 12-16-2023 End: 12-16-2023 Patient encounter procedure [facility] Work Phone: Start: 12-13-2023 End: 12-16-2023 ambulatory B[facility] Madrigal [facility] Start: 12-04-2023 End: 12-04-2023 ambulatory FLORY Do [facility] Start: 09-03-2023 End: 09-03-2023 ambulatory FLORY Hi [facility] Start: 08-13-2023 End: 08-13-2023 ambulatory LINK Chapman DANI Not Available Start: 08-06-2023 End: 08-06-2023 ambulatory JOSEFA MARTINEZ Not Available Start: 05-14-2023 End: 05-14-2023 ambulatory FLORY Do [facility] Start: 02-05-2023 End: 02-05-2023 ambulatory FLORY Do [facility] Start: 02-04-2023 End: 02-05-2023 ambulatory Frank JOE Facility:[facility] Start: 11-06-2022 End: 11-07-[address] VINICIUS BULLOCK Facility:[facility] Start: 09-11-2022 End: 09-12-[address] VINICIUS BULLOCK Facility:[facility] Start: 08-13-2022 End: 08-13-2022 ambulatory Josefa Martinez Facility:[facility] Start: 08-13-2022 End: 08-13-2022 ambulatory MD Josefa Martinez Work Phone: [facility] Work Phone: Start: 08-13-2022 End: 08-13-2022 Patient encounter procedure MD Josefa Martinez Work Phone: [facility] Work Phone: Start: 07-25-2022 End: 07-25-2022 ambulatory Josefa Martinez Facility:[facility] Start: 07-25-2022 End: 07-25-2022 ambulatory MD Josefa Martinez Work Phone: [facility] Work Phone: Start: 07-25-2022 End: 07-25-2022 Patient encounter procedure MD Josefa Martinez Work Phone: [facility] Work Phone: Start: 06-11-2022 End: 06-11-2022 Subsequent hospital visit by physician Josefa Martinez MD Work Phone: [facility] Start: 04-11-2022 End: 04-11-2022 Subsequent hospital visit by physician Josefa Martinez MD Work Phone: [facility] Start: 02-15-2022 End: 02-15-2022 Subsequent hospital visit by physician Josefa Martinez MD Work Phone: [facility] Start: 02-09-2022 End: 02-10-2022 ambulatory Frank Venu JOE Facility:[facility] Start: 12-19-2021 End: 12-19-2021 ambulatory Candi George Other [facility] Other Start: 12-19-2021 Office outpatient visit 15 minutes Candi George [facility] Start: 11-27-2021 End: 11-29-2021 Subsequent hospital visit by physician Apple Pettit Scan Room [facility] Laboratory Comment on above: Pulmonary fibrosis ( [...] by physician Apple Manriquez Dr Room 2 [facility] Comment on above: Urinary urgency Start: 02-07-2021 End: 02-07-2021 Subsequent hospital visit by physician Josefa Martinez Work Phone: [facility] Start: 12-13-2020 End: 12-13-2020 Subsequent hospital visit by physician Josefa Martinez Work Phone: [facility] Start: 10-13-2020 End: 10-13-2020 Emergency department patient visit Zakiya Knight Work Phone: [facility] ED Comment on above: Fall, initial encoun ter (Primary Dx); Abrasion of scalp, initial encounter Start: 10-13-2020 End: 10-13-2020 Subsequent hospital visit by physician Josefa ANGEL[facility] Start: 11-10-2019 End: 11-12-2019 Subsequent hospital visit by physician Apple Manriquez Dr Room 4 [facility] Comment on above: Kidney stone Start: 01-27-2018 End: 01-28-2018 Ambulatory DEFAULT PHYSICIAN Facility:[facility] Start: 04-25-2017 End: 04-26-2017 Ambulatory DEFAULT PHYSICIAN Facility:[facility] Start: 04-15-2017 End: 04-16-2017 Ambulatory OREN LOPES Facility:[facility] Start: 02-13-2017 End: 02-14-2017 Ambulatory BOB BROWN Facility:[facility] Procedures Date Procedure Procedure Detail Performing Clinician Start: 08-13-2022 Plain chest X-ray MD Syed [...] DTaP/Tdap/Td vaccine (4 - Td or Tdap) [facility] Start: 08-31-2028 DTaP/Tdap/Td vaccine (4 - Td) DTaP/Tdap/Td vaccine (4 - Td) [place] Start: 10-03-2022 Creatinine measurement Creatinine [facility] Start: 05-30-2022 Creatinine measurement Creatinine mo [facility] Start: 04-04-2022 Creatinine measurement Creatinine mo [facility] [employer] Work Phone: Start: 03-29-2022 Influenza vaccination Flu vaccine (# 1) [facility] Start: 02-26-2022 Influenza vaccination Flu vaccine (# 1) [facility] Start: 02-07-2022 Creatinine measurement Creatinine mo [facility] [employer] Work Phone: Start: 12-13-2021 Creatinine measurement Creatinine mo [facility] [employer] Work Phone: Start: 10-13-2021 Creatinine measurement Creatinine mo [facility] [employer] Work Phone: Start: 10-11-2021 COVID-19 Vaccine (4 - Booster for Caden series) COVID-19 Vaccine (4 - Booster for Caden series) [facility] Start: 03-29-2021 Influenza vaccination [facility] Start: 12-22-2020 COVID-19 Vaccine (2 - Booster for Caden series) COVID-19 Vaccine (2 - Booster for Caden series) [facility] Start: 03-29-2020 Influenza vaccination [place], [place] Start: 10-06-2017 Lipid panel [facility] Start: 10-06-2017 Lipid screen Lipid screen [place], [place] Start: 10-23-2016 Creatinine monitoring Creatinine mon itoring [place], [place] Start: 10-23-2016 Potassium [Moles/vol ume] in Serum or Plasma Potassium [facility] Start: 10-23-2016 Potassium monitoring Potassium monit oring [facility] Start: 03-24-2016 Shingles Vaccine (2 of 3) Shingles Vaccine (2 of 3) [facility] Start: 2014 Breast cancer screen Breast cancer s creen [place], [place] Start: 2014 Colon cancer screen colonoscopy Colon cancer screen colonoscopy [place], [place] Start: 2014 Screening for malign ant neoplasm of breast Breast cancer screen [facility] [employer] Start: 2014 Screening for malign ant neoplasm of colon Colon cancer screen colonoscopy [facility] [employer] Phone: Start: 08-30-2012 Screening for malign ant neoplasm of colon [facility] [employer] Start: 08-31-2011 Screening for malign ant neoplasm of colon Colorectal Cancer Screen [facility] [employer] Start: 2009 Screening for malign ant neoplasm of colon [facility] [employer] Start: 1994 Screening for malign ant neoplasm of cervix [facility] [employer] Start: 1985 Cervical cancer screen Cervical canc er screen [place] Start: 1985 Screening for malign ant neoplasm of cervix [facility] [employer] Start: 1982 Hepatitis C screening Hepatitis C sc [facility] Start: 1980 COVID-19 Vaccine (1) COVID-19 Vaccin e (1) [employer] Phone: Start: 1979 HIV screen HIV screen [place], [place] Start: 1979 HIV screening HIV screen [facility] Start: 1976 COVID-19 Vaccine (1) COVID-19 Vaccin e (1) [employer] Phone: Start: 1976 Depression Screen Depression Screen [facility] Start: 1964 Hepatitis C screen Hepatitis C scree n [place], [place] Start: 1964 Hepatitis C screening Hepatitis C sc [facility] [employer] CT Chest WO contrast [facility] Immunizations Immunization Date Immunization Notes Care Provider Suki conde 08-16-2021 COVID-19 Raheela Candi Peters n Other [facility] 10-14-2020 COVID-19 Vaccine Gianluca ssen - Documentation Purposes Only Candi George Other [facility] Payers Date Payer Category Payer Unknown [id number] 2022 Self-pay [id number] 2019 Unknown [employer] xxxxxxxxx 2019-Present [phone] [address] [place] [address] xxxxxxxxx [id number] 2015 Unknown [id number] 1964 Unknown [id number] 1964 Unknown [id number] 1964 Unknown [id number] 1964 Unknown [id number] 1964 Unknown [id number] 1964 Unknown [id number] 1964 Unknown [id number] 1964 Unknown [id number] 1959 Unknown [id number] Unknown Unknown [id number] Unknown [id number] Social History Date Type Detail Facility Start: 01-29-2013 End: 12-16-2023 Tobacco smoking status [facility] Former smoker [facility] Start: 01-29-2013 End: 05-20-2022 Alcohol intake Current non-drinker of alcohol (finding) [facility] Start: 1965 Sex Assigned At Not on file [facility] [employer] Start: 10-13-2020 Tobacco use and exposure Never used [facility] Phone: Start: 05-10-2022 End: 05-20-2022 Exposure to SARS-CoV-2 (event) Not sure [facility] Phone: Sex Assigned At Sex Assigned At Bir th [facility] Other History of tobacco use Current smoker [facility] [employer] Phone: Start: 1965 Sex Assigned At Female F [facility] Clinical Notes 12-19-2021 to 12-25-2023 Note Date & Type Note Facility 12-25-2023 Note Prior Authorization has been completed for this patient for the medication Opsumit 10 mg. Determination is pending will update once an outcome has been received [facility] 12-18-2023 Note Patient: Sylvia Jewell Procedure Information Date/Time: 12/18/23 0900 Procedure: Right heart cath Location: [facility]ANGER 2 BIPLANE / [facility] (Cath) Providers: Maximilian Luz MD Clinical information reviewed: Allergies Meds OB Status Physical Exam Airway Mallampati: IV TM distance: >3 FB Neck ROM: full Cardiovascular Rate: normal Dental Pulmonary - normal exam Breath sounds clear to auscultation Abdominal (+) obese Abdomen: soft Anesthesia Plan ASA 3 other (Moderate sedation) Anesthetic plan and risks discussed with patient. Use of blood products discussed with patient who consented to blood products. Plan discussed with fellow and attending. Additional Equipment Requests [facility] 12-04-2023 Note ------ Attestation signed by Flory Pruitt MD at 12/04/2023 11:23 AM I personally saw and examined the patient on the same date of service as resident/fellow Dr. Cortez. I discussed the findings and therapeutic plan with the resident/fellow Dr. Cortez. I agree with the documentation, except for any edits/updates below. Teaching Physician's Revisions: None ------ Subjective Sylvia Moon is a 58 y.o. year old female patient being seen for pulmonary arterial hypertension. She is doing well. She denies any chest pain or chest discomfort, she has stable dyspnea on exertion but good functional capacity, no dizziness or lightheadedness and no palpitation. She did not get still her medication from insurance. She is able to walk up to 1 mile with no SOB. Patient Active Problem List Diagnosis Arthropathy Atrial fibrillation (CMS/HCC) Chest pain Coronary artery disease involving mohegan coronary artery of mohegan heart without angina pectoris Deficiency anemia Essential hypertension Hyperlipidemia Pulmonary HTN (CMS/HCC) Systemic sclerosis (CMS/HCC) Shortness of breath WHO group 1 pulmonary arterial hypertension (CMS/HCC) Family History Problem Relation Name Age of Onset Hypertension Mother Hypertension Father Social History Tobacco Use Smoking status: Former Types: Cigarettes Smokeless tobacco: Never Vaping Use Vaping Use: Never used Substance Use Topics Alcohol use: Not Currently Review of Systems Cardiovascular: Positive for dyspnea on exertion. All other systems reviewed and are negative. Objective Visit Vitals BP 118/62 Pulse 69 Ht 1.524 m (5') Wt 77.1 kg (170 lb) SpO2 96% BMI 33.20 kg/m??? OB Status Postmenopausal Smoking Status Former [...] or split., Disp: 90 tablet, Rfl: 3 macitentan (Opsumit) 10 mg tablet, Take 10 mg by mouth in the morning., Disp: , Rfl: tadalafil (Cialis) 20 mg [...] PAH due schleroderma. Euvolemic on physical exam H (more content not included)... [facility] 09-03-2023 Note Subjective Sylvia Moon is a 58 y.o. year old female [...] (CMS/HCC) Chest pain Coronary artery disease involving mohegan coronary artery of mohegan heart without angina pectoris Deficiency anemia Essential [...] to provide her medication. I asked my ob gyn physician assistant and MA, Feli, to call [facility] special pharmacy and send notes medication by mail. We will focus on her getting her medication. We will try to find a way to (more content not included)... [facility] 05-14-2023 Note PAH [facility] Note Chief Complaint: PAH HPI: [...] challenged by insurance to provide her medication. [facility] specialty pharmacy told her that tadalafil is just for men and not for woman. We will try again again to get her back on macitentan and adcirca and push insurance to cover her as much as we can. I asked my ob gyn physician assistant and MAFeli, to call [facility] special pharmacy and send notes medication by mail. We will try to find a way to cover her medication. 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 [facility] 02-05-2023 Note tadalafil [place] [facility] Subjective Sylvia Moon is a 57 y.o. year old female patient being seen for pulmonary hypertension. Sylvia is a very pleasant woman. She had a stable dyspnea on exertion. No chest pain or chest discomfort, no dizziness or lightheadedness, no syncope and no palpitation. Patient Active Problem List Diagnosis Arthropathy Atrial fibrillation (CMS/HCC) Chest pain Coronary artery disease involving mohegan coronary artery of mohegan heart without angina pectoris Deficiency anemia Essential [...] Ratio 10/03/2022 20.8 Imaging and other tests [facility] 09-21-2022: HEMODYNAMICS: AO: 117/74 mmHg RA: [...] challenged by insurance (more content not included)... 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) [facility] Other Evaluation note* Diagnosis Urinary urgency Urgency of urination documented in this encounter [employer] Phone: evaluation note* Diagnosis Pulmonary fibrosis (HCC) Postinflammatory pulmonary fibrosis documented in this encounter [employer] Phone: evaluation noteNo assessment information available [facility] Work Phone: Evaluation note* Diagnosis Onset Date Resolution Status History of tobacco abuse acu te 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 acute Pulmonary fibrosis, unspecified acute 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 acute Scleroderma acute [facility] Work Phone: [facility] general Narrative - Reported* Type Description Date Medical History scleroderma Medical History Hypertension Medical History pulmonary hypertension Medical History Esophageal reflux Surgical History D&C 2000 Surgical History C section 2001 Surgical History tubal ligation 2001 [facility] Other Summary Purpose Family History No Family History Records Found Relationship Condition Age at Onset Recorded Date/T saleem Not Specified Diabetes mellitus Unknown brother Malignant neoplasm Unknown father Hypertension Unknown Not Specified Hypertension Unknown Advance Directives No Advanced Directives Records FoundDocuments on File Type Date Recorded Patient Healthcare Applications Analyst Expl anation Advance Directives and Living Will Power of Manager Finance Documents on File Type Date Recorded Patient Healthcare Applications Analyst Expl anation ACP-Advance Directive ACP-Power of Manager Finance Documents on File Type Date Recorded Patient Healthcare Applications Analyst Expl anation ACP-Advance Directive ACP-Power of Manager Finance Advance Directive Response Recorded Date/ Time Advance Directives No June 11:06am Advance Directive Response Recorded Date/ Time Advance Directives Yes December 15 9:35am Assessments Diagnosis Kidney stone Calculus of kidney Diagnosis Fall, initial encounter- Primary Abrasion of scalp, initial encounter Discharge Instructions * Instructions* Zakiya Knight DO - 10/13/2020 Please monitor for any worsening headaches dizziness, nausea, vomiting or numbness or tingling. If these develop please return to the ER. * Attachments The following attachments cannot be sent through Care Everywhere. 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 DATE CREATED AUTHOR AUTHOR'S ORGANIZ ATION 12/16/2023 [facility] DATE CREATED AUTHOR AUTHOR'S ORGANIZ ATION 12/27/2023 [facility] Reason for Visit (unrecogniz ed section and content) Reason Comments Fall pt states she was wa lking in the hospital parking lot just [employer] and 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 Pt denies LOC, states I saw stars Specialty Diagnoses / Procedures Referred By Contac t Referred To Contact Radiology Diagnoses Pulmonary fibrosis (HCC) Procedures CT CHEST HIGH RESOLUTION CT CHEST WO CONTRAST Candi George MD Referral ID Status Reason Start Date Expiration Date Visits Re quested Visits Authorized [id number] Closed 11/06/2021 12/05/2021 1 1 Care Teams (unrecognized sec tion and content) Is Analyst Relationship Specialty Start Date End Date Josefa Martinez MD [address] [place] [address] PCP - General 10/03/12 Is Analyst Relationship Specialty Start Date End Date Josefa Martinez MD [address] [place] [address] PCP - General 10/03/12 Is Analyst Relationship Specialty Start Date End Date Josefa Martinez MD [address] [place] [address] PCP - General 10/03/12 Team Status: Inactive Member Role Status Dates Josefa Martinez MD Primary Care Provider, Attending Pro vider Active Team Status: Active Member Role Status Dates Josefa Martinez MD Primary Care Provider Active Team Status: Inactive Member Role Status Dates Josefa Martinez MD Primary Care Provider Active Giacomo Benitez DPM Attending Provider Active Team Status: Inactive Member Role Status Dates Josefa Martinez MD Primary Care Provider Active S tart: December 16, 2023 End: December 16, 2023 Dilan Chapa DO Attending Provider Active St art: December 16, 2023 End: December 16, 2023 Goals (unrecognized section and content) Goals may [...] BE BASED ON THE PRIMARY CLINICAL RECORDS. [employer] provides no warranty or guarantee of the accuracy or completeness of information in this document.
[2024-01-20 08:11] LABS: Basophils Absolute Auto 0.1 10^3/uL (0.0-0.1); Eosinophils Absolute Auto 0.2 10^3/uL (0.0-0.7); Eosinophils Percent Auto 2.3 % (0.9-7.0); Hemoglobin 12.5 g/dL (12.0-16.0); Immature Granulocytes Abs Auto 0.02 10^3/uL (0.00-0.03); Immature Granulocytes Pct Auto 0.2 % (0.0-0.5); Lymphocytes Absolute Auto 2.2 10^3/uL (1.2-3.8); Lymphocytes Percent Auto 26.2 % (20.5-60.0); Mean Corpuscular HGB Conc 32.1 g/dL (29.9-35.2); Mean Corpuscular Hemoglobin 27.5 pg (26.7-34.0); Mean Corpuscular Volume 85.7 fL (81.0-99.0); Monocytes Absolute Auto 0.7 10^3/uL (0.3-0.8); Monocytes Percent Auto 8.8 % (1.7-12.0); Neutrophils Absolute Auto 5.1 10^3/uL (1.4-6.5); Neutrophils Percent Auto 61.5 % (43.0-75.0); Platelet Count 301 10^3/uL (150-450); Red Blood Count 4.55 10^6/uL (4.20-5.40); Red Cell Distribution Width 13.7 % (11.0-15.0); White Blood Count 8.2 10^3/uL (4.0-11.0)
[2024-01-20 08:27] LABS: Erythrocyte Sedimentation Rate 52 mm/hr (<=30)
[2024-01-20 10:01] LABS: Alanine Aminotransferase 27 U/L (14-59); Albumin Globulin Ratio 1.1; Albumin Level 3.8 g/dL (3.4-5.0); Alkaline Phosphatase 139 U/L (46-116); Aspartate Amino Transferase 22 U/L (15-37); Bilirubin Direct 0.1 mg/dL (0.0-0.2); Bilirubin Total 0.3 mg/dL (0.2-1.0); Estimated GFR (African America 44 (>=60); Estimated GFR (Non-African Ame 36 (>=60); Globulin 3.6 g/dL; Total Protein 7.4 g/dL (6.4-8.2)
== END 2024-01-20 07:36 | disposition home or self-care (01) ==
LOC: LAB 07:37
PROVIDERS: PCP Family Medicine; Visit Provider Internal Medicine Rheumatology
DX: M05.79 Rheumatoid arthritis with rheumatoid factor of multiple sites without organ or systems involvement (principal); Z79.899 Other long term (current) drug therapy
CPT/HCPCS: 36415; 80076; 82565; 85025; 85652

== ENCOUNTER 2024-03-23 07:30 | Outpatient (OUT) | payer OTHER, SELFPAY ==
--- OUTSIDE RECORDS SUMMARY | 2024-03-23 07:39 | XMS_ITS | CCD ---
Author Organization [facility] Care Team Providers Care Dehorner Name Role Phone RIVER BROWNER Unavailable Unavailable STEPHANIE CHRISTARYAER Unavailable Unavailable MICHELLE, RUGEN Unavailable Unavailable BROWN, CHRISTOPHER Unavailable Unavailable SKIE, OREN Unavailable Unavailable SKIE, OREN Unavailable Unavailable MICHELLE, RUGEN Unavailable Unavailable MICHELLE, RUGEN Unavailable Unavailable ME Unavailable Unavailable SKIE, OREN Unavailable Unavailable ME Unavailable Unavailable PITRODA, TENNILLE Unavailable Unavailable PHYSICIAN, DEFAULT Unavailable Unavailable PHYSICIAN, DEFAULT Unavailable Unavailable MICHELLE, RUGEN Unavailable Unavailable PHYSICIAN, DEFAULT Unavailable Unavailable PHYSICIAN, DEFAULT Unavailable Unavailable MICHELLE, RUGEN Unavailable Unavailable Josefa Martinez Primary Care Provider [phone] Josefa Martinez Primary Care Provider Josefa Martinez Primary Care Provider Josefa Martinez MD Primary Care Provider Josefa Martinez MD Primary Care Provider Candi George Unavailable Josefa Martinez MD Primary Care Provider Josefa Martinez MD Primary Care Provider MD Josefa Martinez Primary Care Provider [phone] MD Josefa Martinez Attending Provider [phone] MIGUEL Benitez Attending Provider [phone] Josefa Martinez Primary Care Unavailable Giacomo Benitez Attending Unavailable Giacomo Benitez Admitting Unavailable Josefa Martinez Admitting Unavailable Josefa Martinez Attending Unavailable Josefa Martinez Primary Care Unavailable HALADAY, DR COLVIN Admitting [...] Unavailable MICHELLE, JOSEFA Chapman Attending Unavailable LINK LOUISE Attending Unavailable BOB HARDING Referring Unavailabl e [...] Translations: [Augmentin] Drug Allergy 1 [facility] Repository (16 sources) Amoxicillin-Pot Clavulanate; Translations: [AMOXICILLIN-PO T CLAVULANATE] Propensity to adverse reactions to drug 3 [place], [place] (1 source) Amoxicillin / Clavulanate Drug Allergy [facility] Other (2 sources) Amoxicillin; Translations: [amoxicillin] Drug Allergy 4 [facility] Repository (1 source) Clavulanate Drug Allergy 4 [facility] Medications Current Medications Medication Drug Class(es) Dates [...] 0 Active take 2 tablets by mo ut once daily at mealtime leflunomide 20 mg [...] a day; Note: Source Status: Taking; Provider: Juan Luisjami Dayyonas ( ) take 1 tablet by mouth [...] a day; Note: Source Status: Taking; Provider: Candi Ariel ( ) take 1 tablet by mouth [...] disease (2 sources) Atherosclerotic heart disease of [place] coronary artery without angina pectoris; Translations: [Atherosclerotic heart disease of [place] coronary artery without angina pectoris] Onset: 09-21-2022 [...] 02-13-2017 Chronic Other aftercare (1 source) Other [facility] (current) drug therapy; Translations: [OTH [employer]IV[employer]INE[employer] CURRENT DRUG THERAPY] Onset: 11-12-2022 Episodic Other [...] Onset: 02-13-2017 Episodic Other aftercare (1 source) snf (current) use of aspirin; Translations: [[facility] (CURRENT) USE OF ASPIRIN] Onset: 04-15-2017 Episodic Results Test Name Value Interpretation Reference Range Facility 29on 03-05-2024 29 Addended by: FELI HURLEY on: 03/05/2024 01:13 PM Modules accepted: Orders Normal [facility] Office Visiton 03-05-2024 Follow-up visit [id number] Sylvia Zavala 1965 F Date Provider Department Center 03/05/2024 Mia-[facility] [address] Family History Problem Relation Age of Onset Hypertension Mother Hypertension Father Family Status - Relation Status Age at Mother Father Level of Service:48217 ME OFFICE/OUTPATIENT ESTABLISHED MOD MDM 30 MIN [facility] 36on 01-31-2024 36 Reorder Per Prior Authorization Patients medication needs to go to [facility] [place] [facility]. Medication has been sent [facility] Documentationon 12-25-2023 Documentation [id number] Sylvia Zavala 1965 F Date Provider Department Center 12/25/2023 3029-ZACHERY BANEGAS [facility] KEVIN Khalil Family History Problem Relation Age of Onset Hypertension Mother Hypertension Father Family Status - Relation Status Age at Mother Father Reason for Visit and Comments: Prior Authorization [826] - Opsumit Denied Please see note [facility] HPon 12-18-2023 HP H&P reviewed. The patient was examined and there are no changes to the H&P. 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 Will proceed with [facility] for further assessment. Procedure's details, risks and benefits discussed with the patient and she's agreeable. [facility] NURSNOTEon 12-18-2023 NURSNOTE RN educated pt on d/ c instructions. RN encouraged pt to voice any questions or concerns. Pt verbalizes no questions or concerns at this time. Pt was walked off of unit with all of belongings. [facility] CT CHEST WO CONTRASTon 12-14 CT [...] Shar Chery MD 12/15/23 Final result Normal [facility] Abstracton 12-05-2023 Abstract [id number] [place],Earlynne 1965 F Date Provider Department Center 12/05/2023 [facility] C[facility] Family History Problem Relation Age of Onset Hypertension Mother Hypertension Father Family Status - Relation Status Age at Mother Father [facility] 36on 12-04-2023 36 Thank you for the information. We will get this sent to another pharmacy [facility] 12-04-2023 - Attestation signed by Flory Pruitt MD at 12/04/2023 11:23 AM I personally saw and examined the patient on the same date of service as resident/fellow Dr. Cortez. I discussed the findings and therapeutic plan with the resident/fellow Dr. Cortez. I agree with the documentation, except for any edits/updates below. Teaching Physician's Revisions: None Subjective Raúlramon Zavala is a 58 y.o. year old female [...] (CMS/HCC) Chest pain Coronary artery disease involving [place] coronary artery of [place] heart without angina pectoris Deficiency anemia Essential [...] exam H (more content not included)... Normal [facility] Office Visiton 12-04-2023 Follow-up visit [id number] [facility] 1965 F Date Provider Department Center 12/04/2023 [place] Family History Problem Relation Age of Onset Hypertension Mother Hypertension Father Family Status - Relation Status Age at Mother Father Level of Service:49415 ME OFFICE/OUTPATIENT ESTABLISHED MOD MDM 30 MIN (GC) [facility] Office Visiton 09-03-2023 Follow-up visit [id number] [place],Earlynn1965 F Date Provider Department Center 09/03/2023 [place] Family History Problem Relation Age of Onset Hypertension Mother Hypertension Father Family Status - Relation Status Age at Mother Father Level of Service:54533 ME OFFICE/OUTPATIENT ESTABLISHED MOD MDM 30 MIN [facility] Office Visiton 05-14-2023 Follow-up visit [id number] Ald[place],Earlynne 1965 F Date Provider Department Center 05/14/2023 [place] Family History Problem Relation Age of Onset Hypertension Mother Hypertension Father Family Status - Relation Status Age at Mother Father Level of Service:63506 ME OFFICE/OUTPATIENT ESTABLISHED MOD MDM 30-39 MIN [facility] RAD - Ultrasound Reporton RAD - Ultrasound Report [id number] [facility] Ambulatory Visit Summaryon 0 02-04-2023 Ambulatory Visit Summary SYLVIA BASS :1965 Visit Date:02/04/2023 Ambulatory Visit Instructions Your Diagnosis OAB (overactive bladder) Incomplete bladder emptying Personal history of kidney stones Tests Performed Urnls Dip Stick Auto w/o Microscopy POC 49316 Your Care Team Attending Physician - Frank JOE MD Primary Care Physician - JOSEFA MARTINEZ MD This Is Your Medications List tolterodine (tolterodine [...] Follow-Up Appointments Saturday 8:15 AM EDT With: Frank JOE MD Where: [facility] Patient Educationon 02-05-20 23 Patient Education Obstetrics [...] these instructions at home: Medicines ? Take [id number] and prescription medicines only as told by [...] provider. Document Revised: 04/05/2021 Document Reviewed: 04/05/2021 [employer] Patient Education ? 2022 [employer]. [facility] Urology Office/Clinic Noteon 02-04-2023 Urology Office/Clinic [...] Urology [address], [place] [address] [id number] Additional Instructions: Patient Education Acute Urinary Retention, [...] vaccine, i (more content not included)... Normal [facility] Comment on above: Result Comment: Elec tronically Signed By: Frank JOE MD\.br\Date and Time Signed: 02/04/23 10:19 EDT\.br\Electronically Co-Signed By: Oneyda Vallecillo\.br\Date and Time Co-Signed: 02/04/23 10:17 EDT CBC AUTO DIFFon 11-06-2022 BASO # 0.1 103/ul Normal 0.0-0.1 [facility] Comment on above: Performed By: #### C BC #### [facility] [address] [place] [address] Dr. Stefany Corral Basophils/100 WBC (Bld) 0.7 % Normal 0.2-2.0 [facility] Comment on above: Performed By: #### C BC #### [facility] [address] [place] [address] Dr. Stefany Corral EO # 0.3 103/ul Normal 0.0-0.7 [facility] Comment on above: Performed By: #### C BC #### [facility] [address] [place] [address] Dr. Stefany Corral Eosinophils/100 WBC (Bld) 3.0 % Normal 0.9-7.0 [facility] Comment on above: Performed By: #### C BC #### [facility] [address] [place] [address] Dr. Stefany Corral Erythrocyte distribution width (RBC) [Ratio] 15.1 % Critically high 11.0-15.0 [facility] Comment on above: Performed By: #### C BC #### [facility] [address] [place] [address] Dr. Stefany Corral Hematocrit (Bld) [Volume fraction] 36.2 % Normal 36.0-48.0 [facility] Comment on above: Performed By: #### C BC #### [facility] [address] [place] [address] Dr. Stefany Corral Hemoglobin (Bld) [Mass/Vol] 12.0 g/dL Normal 12.0-16.0 [facility] Comment on above: Performed By: #### C BC #### [facility] [address] [place] [address] Dr. Stefany Corral IG # 0.03 10e3/ul Normal 0.00-0.03 [facility] Comment on above: Performed By: #### C BC #### [facility] [address] [place] [address] Dr. Stefany Corral IG % 0.3 % Normal 0.0-0.5 [facility] Comment on above: Performed By: #### C BC #### [facility] [address] [place] [address] Dr. Stefany Corral LYMPH # 2.4 103/ul Normal 1.2-3.8 [facility] Comment on above: Performed By: #### C BC #### [facility] [address] [place] [address] Dr. Stefany Corral Lymphocytes/100 WBC (Bld) 27.4 % Normal 20.5-60.0 [facility] Comment on above: Performed By: #### C BC #### [facility] [address] [place] [address] Dr. Stefany Corral MANUAL DIFF REQ NO Normal [facility] Comment on above: Performed By: #### C BC #### [facility] [address] [place] [address] Dr. Stefany Corral MCH (RBC) [Entitic mass] 28.4 pg Normal 26.7-34.0 [facility] Comment on above: Performed By: #### C BC #### [facility] [address] [place] [address] Dr. Stefany Corral MCHC (RBC) [Mass/Vol] 33.1 g/dL Normal 29.9-35.2 [facility] Comment on above: Performed By: #### C BC #### [facility] [address] [place] [address] Dr. Stefany Corral MCV (RBC) [Entitic vol] 85.6 fL Normal 81.0-99.0 [facility] Comment on above: Performed By: #### C BC #### [facility] [address] [place] [address] Dr. Stefany Corral MONO # 1.0 103/ul Critically high 0.3-0.8 [facility] Comment on above: Performed By: #### C BC #### [facility] [address] [place] [address] Dr. Stefany Corral Monocytes/100 WBC (Bld) 11.2 % Normal 1.7-12.0 [facility] Comment on above: Performed By: #### C BC #### [facility] [address] [place] [address] Dr. Stefany Corral NEUT # 5.0 103/ul Normal 1.4-6.5 [facility] Comment on above: Performed By: #### C BC #### [facility] [address] [place] [address] Dr. Stefany Corral Neutrophils/100 WBC (Bld) 57.4 % Normal 43.0-75.0 [facility] Comment on above: Performed By: #### C BC #### [facility] [address] [place] [address] Dr. Stefany Corral Platelet mean volume (Bld) [Entitic vol] 10.0 fL Normal 9.5-13.5 [facility] Comment on above: Performed By: #### C BC #### [facility] [address] [place] [address] Dr. Stefany Corral PLT 321 103/ul Normal 150-450 [facility] Comment on above: Performed By: #### C BC #### [facility] [address] [place] [address] Dr. Stefany Corral RBC 4.23 106/ul Normal 4.20-5.40 [facility] Comment on above: Performed By: #### C BC #### [facility] [address] [place] [address] Dr. Stefany Corral WBC 8.6 103/ul Normal 4.0-11.0 [facility] Comment on above: Performed By: #### C BC #### [facility] [address] [place] [address] Dr. Stefany Corral CREATININEon 11-06-2022 Creatinine [Mass/Vol] 1.14 mg/dL Critically high 0.55-1.02 [facility] Comment on above: Performed By: #### CHELSIE MILANA #### [facility] [address] [place] [address] Dr. Stefany Corral EGFR-AF ALBANIAN 59 mL/min/1.73m2 Critically low >=60 [facility] Comment on above: Performed By: #### CHELSIE MILANA #### [facility] [address] [place] [address] Dr. Stefany Corral EGFR-NON AF ALBANIAN 49 mL/min/1.73m2 Critically low >=60 [facility] Comment on above: Performed By: #### CHELSIE MILANA #### [facility] [address] [place] [address] Dr. Stefany Corral LIVER PROFILEon 11-06-2022 Albumin [Mass/Vol] 3.5 g/dL Normal 3.4-5.0 [facility] Comment on above: Performed By: #### PETRONA MILAN #### [facility] [address] [place] [address] Dr. Stefany Corral Albumin/Globulin [Mass ratio] 0.9 {ratio} Normal [facility] Comment on above: Performed By: #### Pawel BETHEA CREA #### [facility] [address] [place] [address] Dr. Stefany Corral ALP [Catalytic activity/Vol] 124 U/L Critically high 46-116 [facility] Comment on above: Performed By: #### CHELSIE MILANA #### [facility] [address] [place] [address] Dr. Stefany Corral ALT [Catalytic activity/Vol] 18 U/L Normal 14-59 [facility] Comment on above: Performed By: #### PETRONA MILAN #### [facility] [address] [address] [address] Stefany Corral AST [Catalytic activity/Vol] 16 U/L Normal 15-37 [facility] Comment on above: Performed By: #### L NEEMA CREA #### [facility] [address] [address] [address] Stefany Corral BILI, CONJUGATED 0.0 mg/dL Normal 0.0-0.2 [facility] Comment on above: Performed By: #### L NEEMA CREA #### [facility] [address] [place] [address] Dr. Stefany Corral Bilirubin [Mass/Vol] 0.2 mg/dL Normal 0.2-1.0 [facility] Comment on above: Performed By: #### L NEEMA CREA #### [facility] [address] [place] [address] Dr. Stefany oCrral Globulin (S) [Mass/Vol] 4.0 g/dL Normal T [facility] Comment on above: Performed By: #### L NEEMA CREA #### [facility] [address] [place] [address] Dr. Stefany Corral Protein [Mass/Vol] 7.5 g/dL Normal 6.4-8.2 [facility] Comment on above: Performed By: #### L NEEMA CREA #### [facility] [address] [place] [address] Dr. Stefany Corral SED RATE WESTERGRENon 2022 SED RATE 19 mm/hr Normal <=30 [facility] Comment on above: Performed By: #### S EDR #### [facility] [address] [place] [address] Dr. Stefany Corral CBC AUTO DIFFon 09-11-2022 BASO # 0.1 103/ul Normal 0.0-0.1 [facility] Comment on above: Performed By: #### C BC #### [facility] [address] [place] [address] Dr. Stefany Corral Basophils/100 WBC (Bld) 0.6 % Normal 0.2-2.0 [facility] Comment on above: Performed By: #### C BC #### [facility] [address] [place] [address] Dr. Stefany Corral EO # 0.1 103/ul Normal 0.0-0.7 [facility] Comment on above: Performed By: #### C BC #### [facility] [address] [place] [address] Dr. Stefany Corral Eosinophils/100 WBC (Bld) 1.4 % Normal 0.9-7.0 [facility] Comment on above: Performed By: #### C BC #### [facility] [address] [place] [address] Dr. Stefany Corral Erythrocyte distribution width (RBC) [Ratio] 13.7 % Normal 11.0-15.0 [facility] Comment on above: Performed By: #### C BC #### [facility] [address] [place] [address] Dr. Stefany Corral Hematocrit (Bld) [Volume fraction] 40.2 % Normal 36.0-48.0 [facility] Comment on above: Performed By: #### C BC #### [facility] [address] [place] [address] Dr. Stefany Corral Hemoglobin (Bld) [Mass/Vol] 13.4 g/dL Normal 12.0-16.0 [facility] Comment on above: Performed By: #### C BC #### [facility] [address] [place] [address] Dr. Stefany oCrral IG # 0.03 10e3/ul Normal 0.00-0.03 [facility] Comment on above: Performed By: #### C BC #### [facility] [address] [place] [address] Dr. Stefany Corral IG % 0.3 % Normal 0.0-0.5 [facility] Comment on above: Performed By: #### C BC #### [facility] [address] [place] [address] Dr. Stefany Corral LYMPH # 2.4 103/ul Normal 1.2-3.8 [facility] Comment on above: Performed By: #### C BC #### [facility] [address] [place] [address] Dr. Stefany Corral Lymphocytes/100 WBC (Bld) 27.4 % Normal 20.5-60.0 [facility] Comment on above: Performed By: #### C BC #### [facility] [address] [place] [address] Dr. Stefany Corral MANUAL DIFF REQ NO Normal [facility] Comment on above: Performed By: #### C BC #### [facility] [address] [place] [address] Dr. Stefany Corral MCH (RBC) [Entitic mass] 27.5 pg Normal 26.7-34.0 [facility] Comment on above: Performed By: #### C BC #### [facility] [address] [place] [address] Dr. Stefany Corral MCHC (RBC) [Mass/Vol] 33.3 g/dL Normal 29.9-35.2 [facility] Comment on above: Performed By: #### C BC #### [facility] [address] [place] [address] Dr. Stefany Corral MCV (RBC) [Entitic vol] 82.4 fL Normal 81.0-99.0 [facility] Comment on above: Performed By: #### C BC #### [facility] [address] [place] [address] Dr. Stefany Corral MONO # 0.8 103/ul Normal 0.3-0.8 [facility] Comment on above: Performed By: #### C BC #### [facility] [address] [place] [address] Dr. Stefany Corral Monocytes/100 WBC (Bld) 8.6 % Normal 1.7-12.0 [facility] Comment on above: Performed By: #### C BC #### [facility] [address] [place] [address] Dr. Stefany Corral NEUT # 5.5 103/ul Normal 1.4-6.5 [facility] Comment on above: Performed By: #### C BC #### [facility] [address] [address] [address] Stefany Corral Neutrophils/100 WBC (Bld) 61.7 % Normal 43.0-75.0 [facility] Comment on above: Performed By: #### C BC #### [facility] [address] [address] [address] Stefany Corral Platelet mean volume (Bld) [Entitic vol] 10.2 fL Normal 9.5-13.5 [facility] Comment on above: Performed By: #### C BC #### [facility] [address] [address] [address] Stefany Corral PLT 326 103/ul Normal 150-450 [facility] Comment on above: Performed By: #### C BC #### [facility] [address] [place] [address] Dr. Stefany Corral RBC 4.88 106/ul Normal 4.20-5.40 [facility] Comment on above: Performed By: #### C BC #### [facility] [address] [address] [address] Stefany Corral WBC 8.9 103/ul Normal 4.0-11.0 [facility] Comment on above: Performed By: #### C BC #### [facility] [address] [place] [address] Dr. Stefany Corral CREATININEon 09-11-2022 Creatinine [Mass/Vol] 1.34 mg/dL Critically high 0.55-1.02 [facility] Comment on above: Performed By: #### PETRONA MILAN #### [facility] [address] [address] [address] Stefany Corral EGFR-AF [place] 49 mL/min/1.73m2 Critically low >=60 [facility] Comment on above: Performed By: #### PETRONA MILAN #### [facility] [address] [place] [address] Dr. Stefany Corral EGFR-NON AF [place] 41 mL/min/1.73m2 Critically low >=60 [facility] Comment on above: Performed By: #### Pawel BETHEA CREA #### [facility] [address] [place] [address] Dr. Stefany Corral LIVER PROFILEon 09-11-2022 Albumin [Mass/Vol] 3.8 g/dL Normal 3.4-5.0 [facility] Comment on above: Performed By: #### Pawel BETHEA CREA #### [facility] [address] [place] [address] Dr. Stefany Corral Albumin/Globulin [Mass ratio] 0.9 {ratio} Normal [facility] Comment on above: Performed By: #### CHELSIE MILANA #### [facility] [address] [place] [address] Dr. Stefany Corral ALP [Catalytic activity/Vol] 114 U/L Normal 46-116 [facility] Comment on above: Performed By: #### CHELSIE MILANA #### [facility] [address] [place] [address] Dr. Stefany Corral ALT [Catalytic activity/Vol] 12 U/L Critically low 14-59 [facility] Comment on above: Performed By: #### CHELSIE MILANA #### [facility] [address] [place] [address] Dr. Stefany Corral AST [Catalytic activity/Vol] 17 U/L Normal 15-37 [facility] Comment on above: Performed By: #### CHELSIE MILANA #### [facility] [address] [place] [address] Dr. Stefany Corral BILI, CONJUGATED 0.0 mg/dL Normal 0.0-0.2 [facility] Comment on above: Performed By: #### CHELSIE MILANA #### [facility] [address] [place] [address] Dr. Stefany Corral Bilirubin [Mass/Vol] 0.2 mg/dL Normal 0.2-1.0 [facility] Comment on above: Performed By: #### CHELSIE MILANA #### [facility] [address] [place] [address] Dr. Stefany Corral Globulin (S) [Mass/Vol] 4.3 g/dL Normal T [facility] Comment on above: Performed By: #### L PETRONA BETHEA #### [facility] [address] [address] [address] Stefany Corral Protein [Mass/Vol] 8.1 g/dL Normal 6.4-8.2 [facility] Comment on above: Performed By: #### L PETRONA BETHEA #### [facility] [address] [address] [address] Stef[facility] Cor[facility] 79 mm/hr Critically high <=30 [facility] Comment on above: Performed By: #### S EDR #### [facility] [address] [place] [address] Dr. Stefany Corral XR chest 2V*on 08-13-2022 XR chest 2V* [facility] [place] [address] [place] [address] XRay Report Signed Patient: Sylvia Bass MR#: [id number] : 1965 Acct:[id number] Age/Sex: 57 / F ADM Date: 08/13/22 Loc: XD Room: Type: [facility] Attending Dr: Giacomo Benitez DPM Copies to: [...] Devonte Platt M.D.08/13/2022 2:42 PM Dictation Location: [place] [address] Transcribed By: [facility] 08/13/22 1442 Dictated By: Devonte Platt DO 08/13/22 1441 Signed By: 08/13/22 1442 Normal [facility] Basic Metabolic Panelon 12-2 Anion gap [Moles/Vol] 15.3 mmol/L High 6.0-15.0 [facility] Comment on above: Order Comment: PT IS NON FASTING Reason for Exam HAV (hallux abducto valgus), left;Metatarsalgia of right michelet Performed By: #### C BC, BMP #### [facility] [address] Calcium [Mass/Vol] 9.2 mg/dL Normal 8.2-10.2 [facility] Comment on above: Order Comment: PT IS NON FASTING Reason for Exam HAV (hallux abducto valgus), left;Metatarsalgia of right michelet Result Comment: PERF ORMED BY: [place] [address] PATHOLOGIST METAL FILER JESUSITA NICHOLE M.D. Performed By: #### C BC, BMP #### [address] Chloride [Moles/Vol] 98 mmol/L Normal 95-114 [facility] Comment on above: Order Comment: PT IS NON FASTING Reason for Exam HAV (hallux abducto valgus), left;Metatarsalgia of right michelet Performed By: #### C BC, BMP #### [address] CO2 [Moles/Vol] 23.6 mmol/L Normal 22.0-30.0 [facility] Comment on above: Order Comment: PT IS NON FASTING Reason for Exam HAV (hallux abducto valgus), left;Metatarsalgia of right michelet Performed By: #### C BC, BMP #### [facility] [address] [place] [address] [place] Creatinine [Mass/Vol] 1.48 mg/dL High 0.44-1.03 [facility] Comment on above: Order Comment: PT IS NON FASTING Reason for Exam HAV (hallux abducto valgus), left;Metatarsalgia of right michelet Performed By: #### C BC, BMP #### [facility] [address] [place] [id number] [place] Estimated GFR ( Shandra 44 [facility] Comment on above: Order Comment: PT IS NON FASTING Reason for Exam HAV (hallux abducto valgus), left;Metatarsalgia of right michelet Result Comment: GFR estimated reference range: According to KDOQI guidelines, <60 ml/min/1.73m2 is sufficient to diagnose a patient with chronic kidney disease. Performed By: #### C BC, BMP #### [facility] [address] Estimated GFR (Non- Am 36 [facility] Comment on above: Order Comment: PT IS NON FASTING Reason for Exam HAV (hallux abducto valgus), left;Metatarsalgia of right michelet Performed By: #### C BC, BMP #### [address] Glucose [Mass/Vol] 95 mg/dL Normal 70-100 [facility] Comment on above: Order Comment: PT IS NON FASTING Reason for Exam HAV (hallux abducto valgus), left;Metatarsalgia of right michelet Result Comment: [facility] Glucose Reference Range is dependent on time and content of last meal. Glucose of more than 200 mg/dL in a nonstressed, ambulatory subject supports the diagnosis of Diabetes Mellitus. ADA recommended reference range Performed By: #### C BC, BMP #### [address] Potassium [Moles/Vol] 3.9 mmol/L Normal 3.5-5.1 [facility] Comment on above: Order Comment: PT IS NON FASTING Reason for Exam HAV (hallux abducto valgus), left;Metatarsalgia of right michelet Performed By: #### C BC, BMP #### [facility] [address] Sodium [Moles/Vol] 133 mmol/L Low 136-146 [facility] Comment on above: Order Comment: PT IS NON FASTING Reason for Exam HAV (hallux abducto valgus), left;Metatarsalgia of right michelet Performed By: #### C VIVIANA, BMP #### [facility] [address] Urea nitrogen [Mass/Vol] 29 mg/dL High 9 [facility] Comment on above: Order Comment: PT IS NON FASTING Reason for Exam HAV (hallux abducto valgus), left;Metatarsalgia of right michelet Performed By: #### C VIVIANA, BMP #### [facility] [address] [place] [address] [place] Basophils Auto (Bld) [#/Vol] Ordered By: Josefa Martinez on 07-25-2022 Basophils (Bld) [#/Vol] 0.0 10*3/uL 0.0-0.2 [facility] Basophils/100 WBC Auto (Bld) Ordered By: Josefa Martinez on 07-25-2022 Basophils/100 WBC (Bld) 0.4 % . F [facility] Complete Blood Count Auto Di ffon 07-25-2022 Basophils (Bld) [#/Vol] 0.0 10*3/uL Normal 0.0-0.2 [facility] Comment on above: Order Comment: Reaso n for Exam HAV (hallux abducto valgus), left;Metatarsalgia of right michelet Result Comment: PERF ORMED BY: [place] [address] PATHOLOGIST METAL FILER JESUSITA NICHOLE M.D. Performed By: #### C VIVIANA, BMP #### [address] Basophils/100 WBC (Bld) 0.4 % Normal . [facility] Comment on above: Order Comment: Reaso n for Exam HAV (hallux abducto valgus), left;Metatarsalgia of right michelet Performed By: #### C BC, BMP #### [address] Eosinophils (Bld) [#/Vol] 0.5 10*3/uL High 0.0-0.45 [facility] Comment on above: Order Comment: Reaso n for Exam HAV (hallux abducto valgus), left;Metatarsalgia of right michelet Performed By: #### C BC, BMP #### [facility] [address] Eosinophils/100 WBC (Bld) 6.1 % Normal . [facility] Comment on above: Order Comment: Reaso n for Exam HAV (hallux abducto valgus), left;Metatarsalgia of right michelet Performed By: #### C BC, BMP #### [facility] [address] Erythrocyte distribution width (RBC) [Ratio] 14.9 % Normal 11.9-15.3 [facility] Comment on above: Order Comment: Reaso n for Exam HAV (hallux abducto valgus), left;Metatarsalgia of right michelet Performed By: #### C BC, BMP #### [address] Hematocrit (Bld) [Volume fraction] 38.3 % Normal 34.0-46.4 [facility] Comment on above: Order Comment: Reaso n for Exam HAV (hallux abducto valgus), left;Metatarsalgia of right michelet Performed By: #### C BC, BMP #### [address] Hemoglobin (Bld) [Mass/Vol] 12.5 g/dL Normal 11.8-15.4 [facility] Comment on above: Order Comment: Reaso n for Exam HAV (hallux abducto valgus), left;Metatarsalgia of right michelet Performed By: #### C BC, BMP #### [address] Lymphocytes (Bld) [#/Vol] 2.6 10*3/uL Normal 1.00-4.8 [facility] Comment on above: Order Comment: Reaso n for Exam HAV (hallux abducto valgus), left;Metatarsalgia of right michelet Performed By: #### C BC, BMP #### [place] [address] [place] Lymphocytes/100 WBC (Bld) 32.8 % Normal . [facility] Comment on above: Order Comment: Reaso n for Exam HAV (hallux abducto valgus), left;Metatarsalgia of right michelet Performed By: #### C BC, BMP #### [facility] [address] MCH (RBC) [Entitic mass] 27.1 pg Normal 24.7-34.3 [facility] Comment on above: Order Comment: Reaso n for Exam HAV (hallux abducto valgus), left;Metatarsalgia of right michelet Performed By: #### C BC, BMP #### [address] MCV (RBC) [Entitic vol] 83.2 fL Normal 80-100 [facility] Comment on above: Order Comment: Reaso n for Exam HAV (hallux abducto valgus), left;Metatarsalgia of right michelet Performed By: #### C BC, BMP #### [address] Mean Corpuscular HGB Conc 32.5 g/dL Normal 32.0-35.0 [facility] Comment on above: Order Comment: Reaso n for Exam HAV (hallux abducto valgus), left;Metatarsalgia of right michelet Performed By: #### C BC, BMP #### [address] Monocytes (Bld) [#/Vol] 1.0 10*3/uL High 0.0-0.8 [facility] Comment on above: Order Comment: Reaso n for Exam HAV (hallux abducto valgus), left;Metatarsalgia of right michelet Performed By: #### C BC, BMP #### [address] Monocytes/100 WBC (Bld) 12.5 % Normal . [facility] Comment on above: Order Comment: Reaso n for Exam HAV (hallux abducto valgus), left;Metatarsalgia of right michelet Performed By: #### C BC, BMP #### [facility] [address] Neutrophils (Bld) [#/Vol] 3.8 10*3/uL Normal 1.8-7.7 [facility] Comment on above: Order Comment: Reaso n for Exam HAV (hallux abducto valgus), left;Metatarsalgia of right michelet Performed By: #### C BC, BMP #### [facility] [address] Neutrophils/100 WBC (Bld) 48.2 % Normal . [facility] Comment on above: Order Comment: Reaso n for Exam HAV (hallux abducto valgus), left;Metatarsalgia of right michelet Performed By: #### C BC, BMP #### [address] NRBC% 0.1 /100{WBC} Normal 0-0.5 [facility] Comment on above: Order Comment: Reaso n for Exam HAV (hallux abducto valgus), left;Metatarsalgia of right michelet Performed By: #### C BC, BMP #### [address] Platelet mean volume (Bld) [Entitic vol] 8.6 fL Normal 6.3-10.7 [facility] Comment on above: Order Comment: Reaso n for Exam HAV (hallux abducto valgus), left;Metatarsalgia of right michelet Performed By: #### C BC, BMP #### [facility] [address] [place] [address] [place] Platelets (Bld) [#/Vol] 257 10*3/uL Normal 150-450 [facility] Comment on above: Order Comment: Reaso n for Exam HAV (hallux abducto valgus), left;Metatarsalgia of right michelet Performed By: #### C BC, BMP #### [address] RBC (Bld) [#/Vol] 4.60 10*6/uL Normal 3.60-5.00 [facility] Comment on above: Order Comment: Reaso n for Exam HAV (hallux abducto valgus), left;Metatarsalgia of right michelet Performed By: #### C BC, BMP #### [facility] [address] WBC (Bld) [#/Vol] 7.9 10*3/uL Normal 3.8-11.6 [facility] Comment on above: Order Comment: Reaso n for Exam HAV (hallux abducto valgus), left;Metatarsalgia of right michelet Performed By: #### C BC, BMP #### [facility] [address] Creatinine and Glomerular fi ltration rate.predicted panel (S/P/Bld)Ordered By: Josefa Martinez on 07-25-2022 Creatinine [Mass/Vol] 1.48 mg/dL 0.44-1.03 [facility] ECG 12 lead ECGon 07-25-2022 ECG 12 lead ECG [facility] [place] [address] [place] [address] Electrocardiograph Report Signed Patient: Sylvia Bass MR#: [id number] : 1965 Acct:[id number] Age/Sex: 57 / F ADM Date: 07/25/22 Loc: Room: Type: [facility] Attending Dr: Josefa Martinez MD Ordering Provider: [...] Jan Balderrama MD 1 09/25/21 1625 Normal [facility] Eosinophils Auto (Bld) [#/Vo l]Ordered By: Josefa Martinez on 07-25-2022 Eosinophils (Bld) [#/Vol] 0.5 10*3/uL 0.0-0.45 [facility] Eosinophils/100 WBC Auto (Bl d)Ordered By: Josefa Martinez on 07-25-2022 Eosinophils/100 WBC (Bld) 6.1 % . [facility] Erythrocyte distribution wid th Auto (RBC) [Ratio]Ordered By: Josefa Martinez on 07-25-2022 Erythrocyte distribution width (RBC) [Ratio] 14.9 % 11.9-15.3 [facility] Estimated glomerular filtrat ion rate (GFR) non- AmericanOrdered By: Josefa Martinez on 07-25-2022 GFR/1.73 sq M.predicted among non-blacks MDRD (S/P/Bld) [Vol rate/Area] 36 mL/Min [facility] Hematocrit Auto (Bld) [Volum e fraction]Ordered By: Josefa Martinez on 07-25-2022 Hematocrit (Bld) [Volume fraction] 38.3 % 34.0-46.4 [facility] Hemoglobin [Mass/volume] in BloodOrdered By: Josefa Martinez on 07-25-2022 Hemoglobin (Bld) [Mass/Vol] 12.5 g/dL 11.8-15.4 [facility] Leukocytes [#/volume] correc brendan for nucleated erythrocytes in Blood by Automated counOrdered By: Josefa Martinez on 07-25-2022 WBC corrected for nucl RBC Auto (Bld) [#/Vol] 7.9 10*3/uL 3.8-11.6 [facility] Lymphocytes Auto (Bld) [#/Vo l]Ordered By: Josefa Martinez on 07-25-2022 Lymphocytes (Bld) [#/Vol] 2.6 10*3/uL 1.00-4.8 [facility] Lymphocytes/100 WBC Auto (Bl d)Ordered By: Josefa Martinez on 07-25-2022 Lymphocytes/100 WBC (Bld) 32.8 % . [facility] MCH Auto (RBC) [Entitic mass ]Ordered By: Josefa Guzmana on 07-25-2022 MCH (RBC) [Entitic mass] 27.1 pg 24.7-34.3 [facility] MCHC Auto (RBC) [Mass/Vol]Or dered By: Josefa Michelle on 07-25-2022 MCHC (RBC) [Mass/Vol] 32.5 g/dL 32.0-35.0 [facility] MCV Auto (RBC) [Entitic vol] Ordered By: Josefa Baird on 07-25-2022 MCV (RBC) [Entitic vol] 83.2 fL 80-100 [facility] Monocytes Auto (Bld) [#/Vol] Ordered By: Josefa Guzmana on 07-25-2022 Monocytes (Bld) [#/Vol] 1.0 10*3/uL 0.0-0.8 [facility] Monocytes/100 WBC Auto (Bld) Ordered By: Josefa Baird on 07-25-2022 Monocytes/100 WBC (Bld) 12.5 % . [facility] Neutrophils Auto (Bld) [#/Vo l]Ordered By: Josefa Baird on 07-25-2022 Neutrophils (Bld) [#/Vol] 3.8 10*3/uL 1.8-7.7 [facility] Neutrophils/100 WBC Auto (Bl d)Ordered By: Josefa Guzmana on 07-25-2022 Neutrophils/100 WBC (Bld) 48.2 % . [facility] No Panel InformationOrdered By: Josefa Martinez on 07-25-2022 Estimated GFR () 44 mL/Min [facility] Comment on above: GFR estimated refere nce range: According to KDOQI guidelines, <60 ml/min/1.73m2 is sufficient to diagnose a patient with chronic kidney disease. Pharmacy Creatinine Clearance (Chem N/A [facility] Nucleated erythrocytes [Pres ence] in Blood by Automated countOrdered By: Josefa Martinez on 07-25-2022 Nucleated RBC Auto Ql (Bld) 0.1 /100{WBC} 0-0.5 [facility] Platelet mean volume Auto (B ld) [Entitic vol]Ordered By: Josefa Martinez on 07-25-2022 Platelet mean volume (Bld) [Entitic vol] 8.6 fL 6.3-10.7 [facility] Platelets Auto (Bld) [#/Vol] Ordered By: Josefa Martinez on 07-25-2022 Platelets (Bld) [#/Vol] 257 10*3/uL 150-450 [facility] RBC Auto (Bld) [#/Vol]Ordere d By: Josefa Martniez on 07-25-2022 RBC (Bld) [#/Vol] 4.60 10*6/uL 3.60-5.00 [facility] Serum or plasma anion gap de terminationOrdered By: Josefa Martinez on 07-25-2022 Anion gap [Moles/Vol] 15.3 mmol/L 6.0-15.0 [facility] Serum or plasma calcium enma urement (mass/volume)Ordered By: Josefa Martinez on 07-25-2022 Calcium [Mass/Vol] 9.2 mg/dL 8.2-10.2 [facility] Serum or plasma chloride horace surement (moles/volume)Ordered By: Josefa Martinez on 07-25-2022 Chloride [Moles/Vol] 98 mmol/L 95-114 [facility] Serum or plasma glucose enma urement (mass/volume)Ordered By: Josefa Martinez on 07-25-2022 Glucose [Mass/Vol] 95 mg/dL 70-100 [facility] Comment on above: ADA recommended refe rence rangeRandom Glucose Reference Range is dependent on time and content of last meal. Glucose of more than 200 mg/dL in a nonstressed, ambulatory subject supports the diagnosis of Diabetes Mellitus. Serum or plasma potassium me asurement (moles/volume)Ordered By: Josefa Martinez on 07-25-2022 Potassium [Moles/Vol] 3.9 mmol/L 3.5-5.1 [facility] Serum or plasma sodium measu rement (moles/volume)Ordered By: Josefa Martinez on 07-25-2022 Sodium [Moles/Vol] 133 mmol/L 136-146 [facility] Serum or plasma total carbon dioxide measurement (moles/volume)Ordered By: Josefa Martinez on 07-25-2022 CO2 [Moles/Vol] 23.6 mmol/L 22.0-30.0 [facility] Serum or plasma urea nitroge n measurement (mass/volume)Ordered By: Josefa Martinez on 07-25-2022 Urea nitrogen [Mass/Vol] 29 mg/dL 04-20 [facility] WBC Auto (Bld) [#/Vol]Ordere d By: Josefa Martinez on 07-25-2022 WBC (Bld) [#/Vol] 7.9 10*3/uL 3.8-11.6 [facility] CBC with Auto Differentialon 06-11-2022 Absolute Eos # 0.11 [facility] S [facility] Absolute Immature Granulocyte 0.00 [facility] Absolute Lymph # 4.52 High [facility] Absolute [place] # 0.95 [facility] Atypical Lymphocytes 2 % [facility] Atypical Lymphocytes Absolute 0.21 k/uL [facility] Basophils (Bld) [#/Vol] 0.11 10*3/uL [facility] Basophils/100 WBC (Bld) 1 % 0 - 2 % B ON [facility] Eosinophils/100 WBC (Bld) 1 % 1 - 4 % [facility] Hematocrit (Bld) [Volume fraction] 35.9 % Low 36.3 - 47.1 % [facility] Hemoglobin (Bld) [Mass/Vol] 11.4 g/dL Low 11.9 - 15.1 g/dL [facility] Immature granulocytes/100 WBC (Bld) 0 % 0 [facility] Interpretation and review of laboratory results Abnormal [facility] Lymphocytes/100 WBC (Bld) 43 % 24 - 43 % [facility] MCH (RBC) [Entitic mass] 27.2 pg 25.2 - 33.5 pg [facility] MCHC (RBC) [Mass/Vol] 31.8 g/dL 28.4 - 34.8 g/dL [facility] MCV (RBC) [Entitic vol] 85.7 fL 82.6 - 102.9 fL [facility] Monocytes/100 WBC (Bld) 9 % 3 - 12 % B ON [facility] Morphology William (Bld) [Interp] Platelet scan shows Normal Platelets [facility] NRBC Automated 0.0 0.0 per 100 WBC [facility] Platelet distribution width (Bld) [Ratio] 13.4 % 11.8 - 14.4 % [facility] Platelet mean volume (Bld) [Entitic vol] 10.3 fL 8.1 - 13.5 fL [facility] Platelets (Bld) [#/Vol] 335 10*3/uL [facility] RBC (Bld) [#/Vol] 4.19 10*6/uL 3.95 - 5.1 1 m/uL [facility] Segmented neutrophils/100 WBC (Bld) 44 % 36 - 65 % [facility] Segs Absolute 4.60 [facility] WBC (Bld) [#/Vol] 10.5 10*3/uL [facility] Creatinineon 06-11-2022 Creatinine [Mass/Vol] 1.82 mg/dL High 0.50 - 0.90 mg/dL [facility] GFR/1.73 sq M.predicted MDRD (S/P/Bld) [Vol rate/Area] 32 mL/min/{1.73_m2} Low - PINF [facility] Comment on above: Effective Apr 30, 2022 [...] of laboratory results Abnormal [facility] Hepatic Function Panelon Albumin [Mass/Vol] 4.3 g/dL 3.5 - 5.2 g/dL [facility] Albumin/Globulin [Mass ratio] 1.5 {ratio} 1.0 - 2.5 [facility] ALP (Bld) [Catalytic activity/Vol] 91 U/L 35 - 104 U/L [facility] ALT [Catalytic activity/Vol] 9 U/L 5 - 33 U/L [facility] AST [Catalytic activity/Vol] 18 U/L NINF - 32 U/L [facility] Bilirubin [Mass/Vol] mg/dL Low 0.3 - 1 .2 mg/dL [facility] Bilirubin, Indirect Can not be calculated 0.00 - 1.00 mg/dL [facility] Bilirubin.indirect [Mass/Vol] mg/dL NINF - 0.31 mg/dL [facility] Interpretation and review of laboratory results Abnormal [facility] Protein [Mass/Vol] 7.2 g/dL 6.4 - 8.3 g/dL [facility] Sedimentation Rateon 022 Sed Rate 15 [facility] CBC with Auto Differentialon 04-11-2022 Absolute Eos # 0.49 High [place] [facility] Absolute Immature Granulocyte 0.04 [facility] Absolute Lymph # 2.85 [facility] Absolute [place] # 0.95 [facility] Basophils (Bld) [#/Vol] 0.07 10*3/uL [facility] Basophils/100 WBC (Bld) 1 % 0 - 2 % B [facility] Eosinophils/100 WBC (Bld) 5 % High 1 - 4 % [facility] Hematocrit (Bld) [Volume fraction] 38.5 % 36.3 - 47.1 % [facility] Hemoglobin (Bld) [Mass/Vol] 12.4 g/dL 11.9 - 15.1 g/dL [facility] Immature granulocytes/100 WBC (Bld) 0 % 0 [facility] Interpretation and review of laboratory results Abnormal [facility] Lymphocytes/100 WBC (Bld) 26 % 24 - 43 % [facility] MCH (RBC) [Entitic mass] 27.6 pg 25.2 - 33.5 pg [facility] MCHC (RBC) [Mass/Vol] 32.2 g/dL 28.4 - 34.8 g/dL [facility] MCV (RBC) [Entitic vol] 85.7 fL 82.6 - 102.9 fL [facility] Monocytes/100 WBC (Bld) 9 % 3 - 12 % B ON [facility] NRBC Automated 0.0 0.0 per 100 WBC [facility] Platelet distribution width (Bld) [Ratio] 12.3 % 11.8 - 14.4 % [facility] Platelet mean volume (Bld) [Entitic vol] 11.1 fL 8.1 - 13.5 fL [facility] Platelets (Bld) [#/Vol] 297 10*3/uL [facility] RBC (Bld) [#/Vol] 4.49 10*6/uL 3.95 - 5.1 1 m/uL [facility] Segmented neutrophils/100 WBC (Bld) 59 % 36 - 65 % [facility] Segs Absolute 6.41 [facility] WBC (Bld) [#/Vol] 10.8 10*3/uL [facility] Creatinineon 04-11-2022 Creatinine [Mass/Vol] 2.38 mg/dL High 0.5 - 0.9 mg/dL [facility] GFR 25 mL/min Low 60 - PI NF mL/min [facility] GFR Non- 21 mL/min Low 60 - PINF mL/min [facility] Interpretation and review of laboratory results Abnormal [facility] Hepatic Function Panelon Albumin [Mass/Vol] 4.5 g/dL 3.5 - 5.2 g/dL [facility] Albumin/Globulin [Mass ratio] 1.5 {ratio} 1 - 2.5 [facility] ALP (Bld) [Catalytic activity/Vol] 106 U/L High 35 - 104 U/L [facility] ALT [Catalytic activity/Vol] 16 U/L 5 - 33 U/L [facility] AST [Catalytic activity/Vol] 18 U/L NINF - 32 U/L [facility] Bilirubin [Mass/Vol] 0.2 mg/dL Low 0.3 - 1 .2 mg/dL [facility] Bilirubin, Indirect Can not be calculated 0 - 1 mg/dL [facility] Bilirubin.indirect [Mass/Vol] mg/dL NINF - 0.31 mg/dL [facility] Free PSA/Total PSA [Mass fraction] 7.5 g/dL 6.4 - 8.3 g/dL [facility] Interpretation and review of laboratory results Abnormal [facility] Laboratory - Chemistry and C hemistry - challengeon 04-11-2022 GFR/1.73 sq M.predicted MDRD (S/P/Bld) [Vol rate/Area] [facility] Comment on above: Average GFR for 50-5 9 years old: 93 mL/min/1.73sq m Chronic Kidney Disease: <60 mL/min/1.73sq m Kidney failure: <15 mL/min/1.73sq m eGFR calculated using average adult body mass. Additional eGFR calculator available at: http://www.[employer]/multiple_crcl_2012.htm Stage 1: Some kidney damage normal GFR Stage 2: Mild kidney damage GFR 60-89 Stage 3: Moderate kidney damage GFR 30-59 Stage 4: Severe kidney damage GFR 15-29 Stage 5: Severe kidney damage GFR <15 ESRD - chronic treatment by dialysis or transplant Sedimentation Rateon 022 Sed Rate 12 [facility] CBC with Auto Differentialon 02-15-2022 Absolute Eos # 0.17 [place] [facility] Absolute Immature Granulocyte [facility] Absolute Lymph # 2.35 [facility] Absolute [place] # 0.82 [facility] Basophils (Bld) [#/Vol] 0.04 10*3/uL [facility] Basophils/100 WBC (Bld) 1 % 0 - 2 % B [facility] Eosinophils/100 WBC (Bld) 3 % 1 - 4 % [facility] Hematocrit (Bld) [Volume fraction] 36.8 % 36.3 - 47.1 % [facility] Hemoglobin (Bld) [Mass/Vol] 12.1 g/dL 11.9 - 15.1 g/dL [facility] Immature granulocytes/100 WBC (Bld) 0 % 0 [facility] Interpretation and review of laboratory results Abnormal [facility] Lymphocytes/100 WBC (Bld) 43 % 24 - 43 % [facility] MCH (RBC) [Entitic mass] 28.5 pg 25.2 - 33.5 pg [facility] MCHC (RBC) [Mass/Vol] 32.9 g/dL 28.4 - 34.8 g/dL [facility] MCV (RBC) [Entitic vol] 86.8 fL 82.6 - 102.9 fL [facility] Monocytes/100 WBC (Bld) 15 % High 3 - 12 % B ON [facility] NRBC Automated 0.0 0.0 per 100 WBC [facility] Platelet distribution width (Bld) [Ratio] 13.5 % 11.8 - 14.4 % [facility] Platelet mean volume (Bld) [Entitic vol] 10.0 fL 8.1 - 13.5 fL [facility] Platelets (Bld) [#/Vol] 304 10*3/uL [facility] RBC (Bld) [#/Vol] 4.24 10*6/uL 3.95 - 5.1 1 m/uL [facility] Segmented neutrophils/100 WBC (Bld) 38 % 36 - 65 % [facility] Segs Absolute 2.10 [facility] WBC (Bld) [#/Vol] 5.5 10*3/uL [facility] Creatinineon 02-15-2022 Creatinine [Mass/Vol] 1.2 mg/dL High 0.5 - 0.9 mg/dL [facility] GFR 56 mL/min Low 60 - PI NF mL/min [facility] GFR Non- 46 mL/min Low 60 - PINF mL/min [facility] Hepatic Function Panelon Albumin [Mass/Vol] 4.5 g/dL 3.5 - 5.2 g/dL [facility] Albumin/Globulin [Mass ratio] 1.5 {ratio} 1 - 2.5 [facility] ALP (Bld) [Catalytic activity/Vol] 96 U/L 35 - 104 U/L [facility] ALT [Catalytic activity/Vol] 15 U/L 5 - 33 U/L [facility] AST [Catalytic activity/Vol] 25 U/L NINF - 32 U/L [facility] Bilirubin [Mass/Vol] 0.19 mg/dL Low 0.3 - 1 .2 mg/dL [facility] Bilirubin, Indirect Can not be calculated 0 - 1 mg/dL [facility] Bilirubin.indirect [Mass/Vol] mg/dL NINF - 0.31 mg/dL [facility] Free PSA/Total PSA [Mass fraction] 7.6 g/dL 6.4 - 8.3 g/dL [facility] Laboratory - Chemistry and C hemistry - challengeon 02-15-2022 GFR/1.73 sq M.predicted MDRD (S/P/Bld) [Vol rate/Area] [facility] Comment on above: Average GFR for 50-5 9 years old: 93 mL/min/1.73sq m Chronic Kidney Disease: <60 mL/min/1.73sq m Kidney failure: <15 mL/min/1.73sq m eGFR calculated using average adult body mass. Additional eGFR calculator available at: http://www.[employer]/multiple_crcl_2011.htm Stage 1: Some kidney damage normal GFR Stage 2: Mild kidney damage GFR 60-89 Stage 3: Moderate kidney damage GFR 30-59 Stage 4: Severe kidney damage GFR 15-29 Stage 5: Severe kidney damage GFR <15 ESRD - chronic treatment by dialysis or transplant No Panel Informationon 02-15 Interpretation and review of laboratory results Abnormal [facility] Sedimentation Rateon 022 Sed Rate 23 [facility] Patient Educationon 02-10-20 22 Patient Education Obstetrics [...] Take ove (more content not included)... Normal [facility] Reminderson 02-09-2022 Reminders - From: Lynda Boland To: SANDOR Joe; Sent: 02/09/2022 10:23:42 EDT Show up: 12/27/2022 10:23:00 EDT Subject: Recall for Renal US Due Date/Time: 01/26/2023 10:23:00 EDT Reminder/Recall Pleas call and schedule Patient for her SUSAN prior to 02/04/23 follow up. Normal [facility] Urology Office/Clinic Noteon 02-09-2022 Urology [...] next year. Follow-up With When Contact Information JUINOR JIMENEZ, REYES Connor In [address] [place] [address]- Additional Instructions: w/ renal US Patient Education Overactive Bladder, Adult I, Kayli Garrido, personally scribed for Dr. Joe on 02/09/2022 10:16:37. . Documentation recorded by the scribKayli perry, accurately reflects the services(s) I performed [...] Comments SARS-CoV-2 (COVID-19) Ad26 vaccine 11/15/2020 Recorded [employer] Lab Results Ambulatory Point of Care Results Bilirubin Urine Dipstick: Negative (02/09/22 09:55:00) Blood Urine Dipstick: Negative (02/09/22 09:55:00) Glucose Urine Dipstick: Negative (02/09/22 09:55:00) Ketones Urine Dipstick: Negative (02/09/22 09:55:00) Leukocytes Urine Dipstick: (more content not included)... Normal [facility] Comment on above: Result Comment: Elec tronically Signed By: Frank JOE MD\.br\Date and Time Signed: 02/09/22 10:18 EDT\.br\Electronically Co-Signed By: Kayli Garrido.br\Date and Time Co-Signed: 02/09/22 10:16 EDT C3 Complementon 11-27-2021 Complement C3 132 mg/dL 90 - 180 mg/dL [facility] C4 Complementon 11-27-2021 Complement C4 34 mg/dL 10 - 40 mg/dL [facility] CT CHEST HIGH RESOLUTIONon 0 11-27-2021 Radiology Study observation (narrative) Kaitlin perales Work Phone: 1. Mild basilar honeycombing and mild associated bronchiectasis, consistent with UIP pattern. 2. Main pulmonary artery enlargement raise the possibility of pulmonary hypertension. 3. Calcified atheromatous plaque and coronary calcification. [facility] EXAMINATION: CT IMAGES OF [...] favoring cysts. Soft Tissues/Bones: No significant findings. [facility] Obinna Travis MD - [...] 3. Calcified atheromatous plaque and coronary calcification. [place] Work Phone: CT CHEST HIGH RESOLUTIONOrde red By: Obinna Travis on 11-27-2021 [place] Work Phone: No Panel Informationon 11-27 [place] Urinalysis with Microscopico n 11-27-2021 - [place] Bacteria, UA 2+ Abnormal None [place] Bilirubin Urine Negative NEGATIVE [facility] lth Color, UA Yellow Yellow [place] Epithelial Cells UA 0 TO 2 [place] Glucose, Ur Negative NEGATIVE [place] Interpretation and review of laboratory results Abnormal [place] Ketones Ql (U) Negative NEGATIVE [facility] Leukocyte esterase Test strip Ql (U) SMALL Abnormal NEGATIVE [place] Nitrite, Urine Negative NEGATIVE [facility] pH, UA 5.5 [place] Protein, UA Negative NEGATIVE [place] RBC, UA None [place] Specific [place], UA 1.020 [facility] Turbidity UA Clear Clear [place] Urine Hgb Negative NEGATIVE [place] Urobilinogen, Urine Normal Normal [place] WBC, UA 5 TO 10 [facility] CBC with Auto Differentialon 10-03-2021 Absolute Eos # 0.39 [facility] Absolute Immature Granulocyte 0.04 [place] Absolute Lymph # 2.70 [facility] alth Absolute [place] # 0.91 [facility] lth Basophils (Bld) [#/Vol] 0.08 10*3/uL [place] Basophils/100 WBC (Bld) 1 % 0 - 2 % [facility] Eosinophils/100 WBC (Bld) 4 % 1 - 4 % [place] Hematocrit (Bld) [Volume fraction] 35.9 % Low 36.3 - 47.1 % [place] Hemoglobin.gastrointest inal spec 1 Ql (Stl) 11.4 g/dL Low 11.9 - 15.1 g/dL [place] Immature granulocytes/100 WBC (Bld) 0 % 0 [place] Interpretation and review of laboratory results Abnormal [place] Lymphocytes/100 WBC (Bld) 27 % 24 - 43 % [place] MCH (RBC) [Entitic mass] 28.2 pg 25.2 - 33.5 pg [place] MCHC (RBC) [Mass/Vol] 31.8 g/dL 28.4 - 34.8 g/dL [place] MCV (RBC) [Entitic vol] 88.9 fL 82.6 - 102.9 fL [place] Monocytes/100 WBC (Bld) 9 % 3 - 12 % [facility] NRBC Automated 0.0 0.0 per 100 WBC [place] Platelet distribution width (Bld) [Ratio] 14.7 % High 11.8 - 14.4 % [place] Platelet mean volume (Bld) [Entitic vol] 10.5 fL 8.1 - 13.5 fL [place] Platelets (Bld) [#/Vol] 327 10*3/uL [place] RBC (Bld) [#/Vol] 4.04 10*6/uL 3.95 - 5.1 1 m/uL [place] Segmented neutrophils/100 WBC (Bld) 59 % 36 - 65 % [place] [facility] [#/Vol] 10.2 10*3/uL [facility] Creatinineon 10-03-2021 Creatinine [Mass/Vol] 1.24 mg/dL High 0.50 - 0.90 mg/dL [place] GFR 54 mL/min Low >60 [facility] GFR Non- 45 mL/min Low >60 [place] Interpretation and review of laboratory results Abnormal [facility] Hepatic Function Panelon Albumin [Mass/Vol] 4.2 g/dL 3.5 - 5.2 g/dL [place] Albumin/Globulin [Mass ratio] 1.4 {ratio} [place] ALP (Bld) [Catalytic activity/Vol] 113 U/L High 35 - 104 U/L [place] ALT [Catalytic activity/Vol] 11 U/L 5 - 33 U/L [place] AST [Catalytic activity/Vol] 22 U/L <32 [place] Bilirubin [Mass/Vol] mg/dL Low 0.3 - 1 .2 mg/dL [place] Bilirubin, Indirect Can not be calculated 0.00 - 1.00 mg/dL [place] Bilirubin.indirect [Mass/Vol] mg/dL <0.31 mg/dL [place] Free PSA/Total PSA [Mass fraction] 7.1 g/dL 6.4 - 8.3 g/dL [place] Interpretation and review of laboratory results Abnormal [facility] Laboratory - Chemistry and C hemistry - challengeon 10-03-2021 GFR/1.73 sq M.predicted MDRD (S/P/Bld) [Vol rate/Area] [place] Comment on above: Average GFR for 50-5 9 years old: 93 mL/min/1.73sq m Chronic Kidney Disease: <60 mL/min/1.73sq m Kidney failure: <15 mL/min/1.73sq m eGFR calculated using average adult body mass. Additional eGFR calculator available at: http://www.[employer]/multiple_crcl_2012.htm Stage 1: Some kidney damage normal GFR Stage 2: Mild kidney damage GFR 60-89 Stage 3: Moderate kidney damage GFR 30-59 Stage 4: Severe kidney damage GFR 15-29 Stage 5: Severe kidney damage GFR <15 ESRD - chronic treatment by dialysis or transplant Sedimentation Rateon 022 Sed Rate 18 mm 0 - 30 mm [facility] CBC Auto DifferentialOrdered By: Vinicius Bullock on 05-30-2021 Absolute Eos # 0.17 [facility] Work Phone: Absolute Immature Granulocyte 0.05 [place] Work Phone: Absolute Lymph # 2.36 [facility] Work Phone: Absolute [place] # 0.[address] [facility] Work Phone: Basophils (Bld) [#/Vol] 0.06 10*3/uL [facility] Work Phone: Basophils/100 WBC (Bld) 1 % 0 - 2 % [facility] [employer] Work Phone: Differential Type NOT REPORTED [place] Phone: Eosinophils/100 WBC (Bld) 2 % 1 - 4 % [facility] Work Phone: Hematocrit (Bld) [Volume fraction] 37.1 % 36.3 - 47.1 % [facility] Work Phone: Hemoglobin.gastrointest inal spec 1 Ql (Stl) 12.0 g/dL 11.9 - 15.1 g/dL [place] Phone: Immature granulocytes/100 WBC (Bld) 1 % High 0 [place] Phone: Interpretation and review of laboratory results Abnormal [place] Phone: Lymphocytes/100 WBC (Bld) 22 % Low 24 - 43 % [place] Phone: MCH (RBC) [Entitic mass] 27.8 pg 25.2 - 33.5 pg [place] Phone: MCHC (RBC) [Mass/Vol] 32.3 g/dL 28.4 - 34.8 g/dL [place] Phone: MCV (RBC) [Entitic vol] 86.1 fL 82.6 - 102.9 fL [place] Phone: Monocytes/100 WBC (Bld) 7 % 3 - 12 % [facility] [employer] Work Phone: NRBC Automated 0.0 0.0 per 100 WBC [place] Phone: Platelet distribution width (Bld) [Ratio] 13.9 % 11.8 - 14.4 % [place] Phone: Platelet Estimate NOT REPORTED [place] Phone: Platelet mean volume (Bld) [Entitic vol] 10.3 fL 8.1 - 13.5 fL [place] Phone: Platelets (Bld) [#/Vol] 316 10*3/uL [place] Phone: RBC (Bld) [#/Vol] 4.31 10*6/uL 3.95 - 5.1 1 m/uL [place] Phone: RBC (Bld) [#/Vol] NOT REPORTED [place] Phone: Segmented neutrophils/100 WBC (Bld) 67 % High 36 - 65 % [place] Phone: Segs Absolute 7.58 [facility] Work Phone: WBC (Bld) [#/Vol] 11.0 10*3/uL [place] Phone: WBC (Bld) [#/Vol] NOT REPORTED [place] Phone: [place] Phone: Creatinine, SerumOrdered By: Vinicius Bullock on 05-30-2021 Creatinine [Mass/Vol] 1.22 mg/dL High 0.50 - 0.90 mg/dL [place] Phone: GFR 55 mL/min Low >60 [facility] Phone: GFR Non- 45 mL/min Low >60 [place] Phone: Interpretation and review of laboratory results Abnormal [place] Phone: [place] Phone: Hepatic Function PanelOrdere d By: Vinicius Bullock on 05-30-2021 Albumin [Mass/Vol] 4.4 g/dL 3.5 - 5.2 g/dL [place] Phone: Albumin/Globulin [Mass ratio] 1.4 {ratio} [place] Phone: ALP (Bld) [Catalytic activity/Vol] 98 U/L 35 - 104 U/L [place] Phone: ALT [Catalytic activity/Vol] 15 U/L 5 - 33 U/L [place] Phone: AST [Catalytic activity/Vol] 24 U/L <32 [place] Phone: Bilirubin [Mass/Vol] mg/dL Low 0.3 - 1 .2 mg/dL [place] Phone: Bilirubin, Indirect CANNOT BE CALCULATED 0.00 - 1.00 mg/dL [place] Phone: Bilirubin.indirect [Mass/Vol] mg/dL <0.31 mg/dL [place] Phone: Free PSA/Total PSA [Mass fraction] 7.5 g/dL 6.4 - 8.3 g/dL [place] Phone: Globulin NOT REPORTED 1.5 - 3.8 g/dL [place] Phone: Interpretation and review of laboratory results Abnormal [place] Phone: [place] Phone: Laboratory - Chemistry and C hemistry - challengeOrdered By: Vinicius Bullock on 05-30-2021 GFR/1.73 sq M.predicted MDRD (S/P/Bld) [Vol rate/Area] [place] Phone: Comment on above: Average GFR for 50-5 9 years old: 93 mL/min/1.73sq m Chronic Kidney Disease: <60 mL/min/1.73sq m Kidney failure: <15 mL/min/1.73sq m eGFR calculated using average adult body mass. Additional eGFR calculator available at: http://www.[employer]enops/multiple_crcl_2011.htm Stage 1: Some kidney damage normal GFR Stage 2: Mild kidney damage GFR 60-89 Stage 3: Moderate kidney damage GFR 30-59 Stage 4: Severe kidney damage GFR 15-29 Stage 5: Severe kidney damage GFR <15 ESRD - chronic treatment by dialysis or transplant Sedimentation RateOrdered By : Vinicius Bullock on 05-30-2021 Interpretation and review of laboratory results Abnormal [place] Phone: Sed Rate 25 mm High 0 - 20 mm [facility] Work Phone: [facility] Work Phone: CBC Auto DifferentialOrdered By: Vinicius Bullock on 04-04-2021 Absolute Eos # 0.09 [facility] Work Phone: Absolute Immature Granulocyte 0.04 [facility] Work Phone: Absolute Lymph # 2.65 [facility] Work Phone: Absolute [place] # 0.80 [facility] Work Phone: Basophils (Bld) [#/Vol] 0.08 10*3/uL [facility] Work Phone: Basophils/100 WBC (Bld) 1 % 0 - 2 % [facility]: Differential Type NOT REPORTED [place] Phone: Eosinophils/100 WBC (Bld) 1 % 1 - 4 % [facility]: Hematocrit (Bld) [Volume fraction] 40.0 % 36.3 - 47.1 % [place] Phone: Hemoglobin.gastrointest inal spec 1 Ql (Stl) 12.9 g/dL 11.9 - 15.1 g/dL [place] Phone: Immature granulocytes/100 WBC (Bld) 0 % 0 [facility] Work Phone: Lymphocytes/100 WBC (Bld) 25 % 24 - 43 % [place] Phone: MCH (RBC) [Entitic mass] 27.4 pg 25.2 - 33.5 pg [place] Phone: MCHC (RBC) [Mass/Vol] 32.3 g/dL 28.4 - 34.8 g/dL [place] Phone: MCV (RBC) [Entitic vol] 84.9 fL 82.6 - 102.9 fL [place] Phone: Monocytes/100 WBC (Bld) 8 % 3 - 12 % [facility] [employer] Work Phone: NRBC Automated 0.0 0.0 per 100 WBC [place] Phone: Platelet distribution width (Bld) [Ratio] 14.2 % 11.8 - 14.4 % [place] Phone: Platelet Estimate NOT REPORTED [place] Phone: Platelet mean volume (Bld) [Entitic vol] 10.1 fL 8.1 - 13.5 fL [place] Phone: Platelets (Bld) [#/Vol] 314 10*3/uL [place] Phone: RBC (Bld) [#/Vol] 4.71 10*6/uL 3.95 - 5.1 1 m/uL [place] Phone: RBC (Bld) [#/Vol] NOT REPORTED [place] Phone: Segmented neutrophils/100 WBC (Bld) 65 % 36 - 65 % [place] Phone: Segs Absolute 6.90 [facility] Work Phone: WBC (Bld) [#/Vol] 10.6 10*3/uL [place] Phone: WBC (Bld) [#/Vol] NOT REPORTED [place] Phone: [place] Phone: Creatinine, SerumOrdered By: Vinicius Bullock on 04-04-2021 Creatinine [Mass/Vol] 1.47 mg/dL High 0.50 - 0.90 mg/dL [place] Phone: GFR 45 mL/min Low >60 [facility] Phone: GFR Non- 37 mL/min Low >60 [place] Phone: Interpretation and review of laboratory results Abnormal [place] Phone: [place] Phone: Hepatic Function PanelOrdere d By: Vinicius Bullock on 04-04-2021 Albumin [Mass/Vol] 4.2 g/dL 3.5 - 5.2 g/dL [place] Phone: Albumin/Globulin [Mass ratio] 1.4 {ratio} [place] Phone: ALP (Bld) [Catalytic activity/Vol] 95 U/L 35 - 104 U/L [place] Phone: ALT [Catalytic activity/Vol] 14 U/L 5 - 33 U/L [place] Phone: AST [Catalytic activity/Vol] 24 U/L <32 [place] Phone: Bilirubin [Mass/Vol] mg/dL Low 0.3 - 1 .2 mg/dL [place] Phone: Bilirubin, Indirect CANNOT BE CALCULATED 0.00 - 1.00 mg/dL [place] Phone: Bilirubin.indirect [Mass/Vol] mg/dL <0.31 mg/dL [place] Phone: Free PSA/Total PSA [Mass fraction] 7.2 g/dL 6.4 - 8.3 g/dL [place] Phone: Globulin NOT REPORTED 1.5 - 3.8 g/dL [place] Phone: Interpretation and review of laboratory results Abnormal [place] Phone: [place] Phone: Laboratory - Chemistry and C hemistry - challengeOrdered By: Vinicius Bullock on 04-04-2021 GFR/1.73 sq M.predicted MDRD (S/P/Bld) [Vol rate/Area] [place] Phone: Comment on above: Average GFR for 50-5 9 years old: 93 mL/min/1.73sq m Chronic Kidney Disease: <60 mL/min/1.73sq m Kidney failure: <15 mL/min/1.73sq m eGFR calculated using average adult body mass. Additional eGFR calculator available at: http://www.[employer]/multiple_crcl_2012.htm Stage 1: Some kidney damage normal GFR Stage 2: Mild kidney damage GFR 60-89 Stage 3: Moderate kidney damage GFR 30-59 Stage 4: Severe kidney damage GFR 15-29 Stage 5: Severe kidney damage GFR <15 ESRD - chronic treatment by dialysis or transplant Sedimentation RateOrdered By : Vinicius Bullock on 04-04-2021 Sed Rate 13 mm 0 - 20 mm [place] Phone: [place] Phone: XR ABDOMEN (KUB) (SINGLE AP VIEW)Ordered By: Frank Joe on 02-21-2021 Unremarkable abdominal radiographs without acute abnormality. [place] Phone: EXAMINATION: ONE SUPINE XRAY VIEW(S) OF THE ABDOMEN 02/21/2021 7:33 am COMPARISON: Abdominal radiographs performed 11/10/2019. HISTORY: ORDERING SYSTEM PROVIDED HISTORY: Urinary urgency FINDINGS: There is a nonobstructive bowel gas pattern. There is no intraperitoneal free air. There are no suspicious calcifications. Stable phleboliths are seen in the pelvis. There is no acute osseous abnormality. The surrounding soft tissues are unremarkable. [place] Phone: Hector, Mhpn Incoming Radiant Results From [employer] - 02/21/2021 8:40 AM EDT EXAMINATION: ONE [...] IMPRESSION: Unremarkable abdominal radiographs without acute abnormality. [facility] Work Phone: [place] Phone: CBC Auto DifferentialOrdered By: Vinicius Bullock on 02-07-2021 Absolute Eos # 0.41 [facility] Work Phone: Absolute Immature Granulocyte 0.05 [facility] Work Phone: Absolute Lymph # 2.39 [facility] Work Phone: Absolute [place] # 0.91 [facility] Work Phone: Basophils (Bld) [#/Vol] 0.08 10*3/uL [place] Phone: Basophils/100 WBC (Bld) 1 % 0 - 2 % [facility] [place] Phone: Differential Type NOT REPORTED [place] Phone: Eosinophils/100 WBC (Bld) 4 % 1 - 4 % [place] Phone: Hematocrit (Bld) [Volume fraction] 36.4 % 36.3 - 47.1 % [place] Phone: Hemoglobin.gastrointest inal spec 1 Ql (Stl) 11.2 g/dL Low 11.9 - 15.1 g/dL [place] Phone: Immature granulocytes/100 WBC (Bld) 1 % High 0 [place] Phone: Interpretation and review of laboratory results Abnormal [place] Phone: Lymphocytes/100 WBC (Bld) 26 % 24 - 43 % [place] Phone: MCH (RBC) [Entitic mass] 27.0 pg 25.2 - 33.5 pg [place] Phone: MCHC (RBC) [Mass/Vol] 30.8 g/dL 28.4 - 34.8 g/dL [place] Phone: MCV (RBC) [Entitic vol] 87.7 fL 82.6 - 102.9 fL [place] Phone: Monocytes/100 WBC (Bld) 10 % 3 - 12 % [facility]: NRBC Automated 0.0 0.0 per 100 WBC [place] Phone: Platelet distribution width (Bld) [Ratio] 14.5 % High 11.8 - 14.4 % [place] Phone: Platelet Estimate NOT REPORTED [place] Phone: Platelet mean volume (Bld) [Entitic vol] 10.0 fL 8.1 - 13.5 fL [place] Phone: Platelets (Bld) [#/Vol] 390 10*3/uL [place] Phone: RBC (Bld) [#/Vol] 4.15 10*6/uL 3.95 - 5.1 1 m/uL [place] Phone: RBC (Bld) [#/Vol] NOT REPORTED [facility] Phone: Segmented neutrophils/100 WBC (Bld) 58 % 36 - 65 % [place] Phone: Segs Absolute 5.47 [facility] Work Phone: WBC (Bld) [#/Vol] 9.3 10*3/uL [place] Phone: WBC (Bld) [#/Vol] NOT REPORTED [place] Phone: [place] Phone: Creatinine, SerumOrdered By: Vinicius Bullock on 02-07-2021 Creatinine [Mass/Vol] 1.25 mg/dL High 0.50 - 0.90 mg/dL [place] Phone: GFR 54 mL/min Low >60 [facility] Phone: GFR Non- 44 mL/min Low >60 [place] Phone: Interpretation and review of laboratory results Abnormal [place] Phone: [place] Phone: Hepatic Function PanelOrdere d By: Vinicius Bullock on 02-07-2021 Albumin [Mass/Vol] 4 g/dL 3.5 - 5.2 g/dL [place] Phone: Albumin/Globulin [Mass ratio] 1.1 {ratio} [place] Phone: ALP (Bld) [Catalytic activity/Vol] 95 U/L 35 - 104 U/L [place] Phone: ALT [Catalytic activity/Vol] 13 U/L 5 - 33 U/L [place] Phone: AST [Catalytic activity/Vol] 22 U/L <32 [place] Phone: Bilirubin [Mass/Vol] mg/dL Low 0.3 - 1 .2 mg/dL [place] Phone: Bilirubin, Indirect CANNOT BE CALCULATED 0.00 - 1.00 mg/dL [place] Phone: Bilirubin.indirect [Mass/Vol] mg/dL <0.31 mg/dL [place] Phone: Free PSA/Total PSA [Mass fraction] 7.5 g/dL 6.4 - 8.3 g/dL [place] Phone: Globulin NOT REPORTED 1.5 - 3.8 g/dL [place] Phone: Interpretation and review of laboratory results Abnormal [place] Phone: [facility] Work Phone: Laboratory - Chemistry and C hemistry - challengeOrdered By: Vinicius Bullock on 02-07-2021 GFR/1.73 sq M.predicted MDRD (S/P/Bld) [Vol rate/Area] [place] Phone: Comment on above: Average GFR for 50-5 9 years old: 93 mL/min/1.73sq m Chronic Kidney Disease: <60 mL/min/1.73sq m Kidney failure: <15 mL/min/1.73sq m eGFR calculated using average adult body mass. Additional eGFR calculator available at: http://www.[employer]/multiple_crcl_2012.htm Stage 1: Some kidney damage normal GFR Stage 2: Mild kidney damage GFR 60-89 Stage 3: Moderate kidney damage GFR 30-59 Stage 4: Severe kidney damage GFR 15-29 Stage 5: Severe kidney damage GFR <15 ESRD - chronic treatment by dialysis or transplant Sedimentation RateOrdered By : Vinicius Bullock on 02-07-2021 Interpretation and review of laboratory results Abnormal [facility] Work Phone: Sed Rate 62 mm High 0 - 20 mm [facility] Work Phone: [facility] Work Phone: CBC Auto DifferentialOrdered By: Vinicius Bullock on 12-13-2020 Absolute Eos # 0.30 [facility] Work Phone: Absolute Immature Granulocyte 0.08 [facility] Work Phone: Absolute Lymph # 2.93 [facility] Work Phone: Absolute [place] # 1.04 [facility] Work Phone: Basophils (Bld) [#/Vol] 0.08 10*3/uL [facility] Work Phone: Basophils/100 WBC (Bld) 1 % 0 - 2 % [facility] [employer] Work Phone: Differential Type NOT REPORTED [place] Phone: Eosinophils/100 WBC (Bld) 2 % 1 - 4 % [place] Phone: Hematocrit (Bld) [Volume fraction] 37.6 % 36.3 - 47.1 % [facility] Work Phone: Hemoglobin.gastrointest inal spec 1 Ql (Stl) 12.0 g/dL 11.9 - 15.1 g/dL [employer] Phone: Immature granulocytes/100 WBC (Bld) 1 % High 0 [employer] Phone: Interpretation and review of laboratory results Abnormal [employer] Phone: Lymphocytes/100 WBC (Bld) 21 % Low 24 - 43 % [employer] Phone: MCH (RBC) [Entitic mass] 27.8 pg 25.2 - 33.5 pg [employer] Phone: MCHC (RBC) [Mass/Vol] 31.9 g/dL 28.4 - 34.8 g/dL [employer] Phone: MCV (RBC) [Entitic vol] 87.0 fL 82.6 - 102.9 fL [employer] Phone: Monocytes/100 WBC (Bld) 7 % 3 - 12 % M [employer] Work Phone: NRBC Automated 0.0 0.0 per 100 WBC [place] Phone: Platelet distribution width (Bld) [Ratio] 13.1 % 11.8 - 14.4 % [employer] Phone: Platelet Estimate NOT REPORTED [employer] Phone: Platelet mean volume (Bld) [Entitic vol] 9.7 fL 8.1 - 13.5 fL [employer] Phone: Platelets (Bld) [#/Vol] 345 10*3/uL [employer] Phone: RBC (Bld) [#/Vol] 4.32 10*6/uL 3.95 - 5.1 1 m/uL [facility] Work Phone: RBC (Bld) [#/Vol] NOT REPORTED [employer] Phone: Segmented neutrophils/100 WBC (Bld) 68 % High 36 - 65 % [facility] Work Phone: Segs Absolute 9.87 High [employer] Work Phone: WBC (Bld) [#/Vol] 14.3 10*3/uL High [facility] Work Phone: WBC (Bld) [#/Vol] NOT REPORTED [employer] Phone: [facility] Work Phone: Creatinine, SerumOrdered By: Vinicius Bullock on 12-13-2020 Creatinine [Mass/Vol] 1.48 mg/dL High 0.50 - 0.90 mg/dL [employer] Phone: GFR 44 mL/min Low >60 [employer] Work Phone: GFR Non- 36 mL/min Low >60 [place] Phone: Interpretation and review of laboratory results Abnormal [facility] Phone: [facility] Phone: Hepatic Function PanelOrdere d By: Vinicius Bullock on 12-13-2020 Albumin [Mass/Vol] 4.2 g/dL 3.5 - 5.2 g/dL [employer] Phone: Albumin/Globulin [Mass ratio] 1.1 {ratio} [employer] Phone: ALP (Bld) [Catalytic activity/Vol] 86 U/L 35 - 104 U/L [employer] Phone: ALT [Catalytic activity/Vol] 12 U/L 5 - 33 U/L [employer] Phone: AST [Catalytic activity/Vol] 21 U/L <32 [employer] Phone: Bilirubin [Mass/Vol] mg/dL Low 0.3 - 1 .2 mg/dL [employer] Phone: Bilirubin, Indirect CANNOT BE CALCULATED 0.00 - 1.00 mg/dL [employer] Phone: Bilirubin.indirect [Mass/Vol] mg/dL <0.31 mg/dL [employer] Phone: Free PSA/Total PSA [Mass fraction] 7.9 g/dL 6.4 - 8.3 g/dL [employer] Phone: Globulin NOT REPORTED 1.5 - 3.8 g/dL [employer] Phone: Interpretation and review of laboratory results Abnormal [facility] Phone: [facility] Phone: Laboratory - Chemistry and C hemistry - challengeOrdered By: Vinicius Bullock on 12-13-2020 GFR/1.73 sq M.predicted MDRD (S/P/Bld) [Vol rate/Area] [employer] Phone: Comment on above: Average GFR for 50-5 9 years old: 93 mL/min/1.73sq m Chronic Kidney Disease: <60 mL/min/1.73sq m Kidney failure: <15 mL/min/1.73sq m eGFR calculated using average adult body mass. Additional eGFR calculator available at: http://www.globalrph.com/multiple_crcl_2012.htm Stage 1: Some kidney damage normal GFR Stage 2: Mild kidney damage GFR 60-89 Stage 3: Moderate kidney damage GFR 30-59 Stage 4: Severe kidney damage GFR 15-29 Stage 5: Severe kidney damage GFR <15 ESRD - chronic treatment by dialysis or transplant Sedimentation RateOrdered By : Vinicius Bullock on 12-13-2020 Interpretation and review of laboratory results Abnormal [facility] Phone: Sed Rate 54 mm High 0 - 20 mm [employer] Phone: [facility] Phone: CBC Auto Differentialon 09-26 Basophils (Bld) [#/Vol] 0.06 10*3/uL [employer] Phone: Basophils/100 WBC (Bld) 1 % 0 - 2 % M [employer] Phone: Differential Type NOT REPORTED [place] Phone: Eosinophils (Bld) [#/Vol] 0.33 10*3/uL [employer] Phone: Eosinophils/100 WBC (Bld) 4 % 1 - 4 % [employer] Phone: Erythrocyte distribution width (RBC) [Ratio] 13.3 % 11.8 - 14.4 % [employer] Phone: Hematocrit (Bld) [Volume fraction] 39.0 % 36.3 - 47.1 % [employer] Phone: Hemoglobin (Bld) [Mass/Vol] 12.3 g/dL 11.9 - 15.1 g/dL [employer] Phone: Immature granulocytes (Bld) [#/Vol] 0 % 0 [employer] Phone: Immature granulocytes (Bld) [#/Vol] 0.04 10*3/uL [employer] Phone: Lymphocytes (Bld) [#/Vol] 2.45 10*3/uL [employer] Phone: Lymphocytes/100 WBC (Bld) 27 % 24 - 43 % [employer] Phone: MCH (RBC) [Entitic mass] 27.8 pg 25.2 - 33.5 pg [employer] Phone: MCHC (RBC) [Mass/Vol] 31.5 g/dL 28.4 - 34.8 g/dL [employer] Phone: MCV (RBC) [Entitic vol] 88.2 fL 82.6 - 102.9 fL [employer] Phone: Monocytes (Bld) [#/Vol] 0.79 10*3/uL [employer] Phone: Monocytes/100 WBC (Bld) 9 % 3 - 12 % M [employer] Work Phone: Platelet mean volume (Bld) [Entitic vol] 10.4 fL 8.1 - 13.5 fL [place] Phone: Platelets (Bld) [#/Vol] 284 10*3/uL [employer] Phone: Platelets (Bld) [#/Vol] NOT REPORTED [employer] Phone: RBC (Bld) [#/Vol] 4.42 10*6/uL 3.95 - 5.1 1 m/uL [employer] Phone: RBC morphology finding Nom (Bld) NOT REPORTED [place] Phone: Segmented neutrophils/100 WBC (Bld) 59 % 36 - 65 % [place] Phone: Segs Absolute 5.38 [employer] Work Phone: WBC (Bld) [#/Vol] 9.1 10*3/uL [facility] Work Phone: WBC (Bld) [#/Vol] 0.0 10*3/uL 0.0 per 10 0 WBC [place] Phone: WBC Morphology NOT REPORTED [employer] Phone: Creatinine, Serumon 10-14-19 Creatinine [Mass/Vol] 1.45 mg/dL High 0.50 - 0.90 mg/dL [place] Phone: GFR 45 mL/min Low >60 [employer] Phone: GFR Non- 37 mL/min Low >60 [place] Phone: Interpretation and review of laboratory results Abnormal [place] Phone: Hepatic Function Panelon Albumin [Mass/Vol] 4.5 g/dL 3.5 - 5.2 g/dL [place] Phone: Albumin/Globulin [Mass ratio] 1.3 {ratio} [place] Phone: ALP [Catalytic activity/Vol] 93 U/L 35 - 104 U/L [employer] Phone: ALT [Catalytic activity/Vol] 12 U/L 5 - 33 U/L [employer] Phone: AST [Catalytic activity/Vol] 21 U/L <32 [employer] Phone: Bilirubin Ql (U) <0.10 Low 0.3 - 1.2 mg/dL [place] Phone: Bilirubin, Indirect CANNOT BE CALCULATED 0.00 - 1.00 mg/dL [place] Phone: Bilirubin.direct [Mass/Vol] mg/dL <0.31 mg/dL [employer] Phone: Globulin (S) [Mass/Vol] NOT REPORTED 1.5 - 3.8 g/dL [employer] Phone: Interpretation and review of laboratory results Abnormal [employer] Phone: Protein [Mass/Vol] 7.9 g/dL 6.4 - 8.3 g/dL [employer] Phone: Metabolic Panelon 10-13-2020 GFR/1.73 sq M predicted among non-blacks MDRD (S/P/Bld) [Vol rate/Area] [employer] Phone: Comment on above: Stage 1: Some [...] body mass. Additional eGFR calculator available at: http://www.[employer]/multiple_crcl_2012.htm Sedimentation Rateon 021 Interpretation and review of laboratory results Abnormal [place] Phone: Sed Rate 25 mm High 0 - 20 mm [employer] Phone: XR ABDOMEN (KUB) (SINGLE AP VIEW)on 11-10-2019 No definite renal stones are seen. There is a 2-3 mm calcification in the pelvis on the left felt more likely to reflect a phlebolith although a distal left ureteral stone is not entirely excluded. Consider CT as clinically indicated. [facility] [place] EXAMINATION: ONE SUPINE XRAY VIEW(S) OF THE [...] intraperitoneal free air. No acute bony abnormalities. [facility] Hector, Mhpn Incoming Radiant Results From [employer] - 11/10/2019 8:02 AM EDT EXAMINATION: ONE [...] entirely excluded. Consider CT as clinically indicated. [facility] FINGER LEFT MIN 2 VWSon 03-29 FINGER LEFT MIN 2 [facility] [address] [place] [address] Patient Name: SYLVIA GARAY : 1965Sex: FAge: Race: OtherMRN: [id number]. Location: OUTPPatient Status: OVisit #: [id number] Date: 04/15/2017 7:10:00 AMCompleted Date: 04/15/2017 08:31 AMRequesting Provider: OREN LOPES Attending Provider: OREN LOPES Report Copy To: Signs & Symptoms: LT THUMB IP FUSIONHistory: LT THUMB IP FUSIONComments: LT THUMB IP FUSIONExam: FINGER LEFT MIN 2 VWSAccession #: [id number] FIN SEAN LEFT MIN 2 VWS 04/15/2017 8:31 AM EDT SIGNS AND SYMPTOMS: LT THUMB IP FUSION lt thumb IP fusion fluoro time 22 secs TECHNIQUE: Intraprocedural fluoroscopy without radiologist supervision or interpretation. Electronically signed by:Mervin Rios M.D.. Transcribed by: [email or web address], User Resident: Electronically Signed by: MERVIN RIOS @ 04/15/2017 10:35 AM Normal [facility] Comment on above: Order Comment: LT TH UMB IP FUSION Operative Reporton 7 Operative Report MR#: [id number] [facility] Pt. Name: Sylvia Garay Room #: 0C Discharge Date: Birthdate: 1965 OPERATIVE REPORTDATE OF SURGERY: 04/15/2017SURGEON: Oren Lopes M.D.PREOPERATIVE DIAGNOSIS: Degenerative osteoarthritis, left thumb IP joint.POSTOPERATIVE DIAGNOSIS: Degenerative osteoarthritis, left thumb IPjoint.PROCEDURE: IP joint fusion, left thumb.GENERAL ENGINEERING TEACHER: Cain Jean M.D.ANESTHESIA: Regional with an axillary block.INDICATION FOR SURGERY: Sylvia is a 51-year-old female who [facility] with complaints of pain and worsening deformityin her left thumb. Clinically, she has about 36-51-bbrsnd ulnar deviationdeformity at the IP joint of [...] prepared andthe thumb was straight with good iram-wj-qfgq contact. We took a guidewirefrom the Arthrex [...] extensor mechanism was reapproximated with a couple dlwlakre-yt-ecnyh sutures of 4-0 Vicryl. The skin with a buried 4-0 Vicryland then 5-0 Novafil. Sterile dressing of Xeroform gauze, 4x4, fluffs,Araceli, and an William bandage were applied. The tourniquet was released. Allsponge and needle counts were correct at time of closure.Electronicall y Signed by:Oren Lopes M.D. 04/16/2017 12:36 P Marti erlin Lopes M.D.Date Dict: 04/15/2017/10:23 A/Oren Lopes M.D.Date Trans: 04/15/2017 10:48 A/[id number]: Josefa Martinez M.D. Life Stages 3 [facility] [address] Normal [facility] POC GLUCOSE LABon 04-15-2017 Glucose mass conc 100 mg/dL Normal 70-100 [facility] Comment on above: Performed By: #### [id number] ####[address] FINGER LEFT MIN 2 VWSon 01-26 FINGER LEFT MIN 2 VWS [facility] [address] [place] [address] Patient Name: SYLVIA GARAY : 1965Sex: FAge: Race: OtherMRN: [id number]. Location: 84Patient Status: OVisit #: [id number] Date: 02/13/2017 9:25:00 AMCompleted Date: 02/13/2017 09:28 AMRequesting Provider: BOB BROWN Attending Provider: BOB BROWN Report Copy To: Signs & Symptoms: S63.125A Dislocation of unsp interphaln joint of left thumb, init [id number]: AthenaComments: , , L thumb , , , Ordering Provider - CHRISTOPHER BROWN , Rendering Provider - CHRISTOPHER BROWN , Exam: FINGER LEFT MIN 2 VWSAccession #: [id number] FIN SEAN LEFT MIN 2 VWS 02/13/2017 9:28 AM EDT SIGNS AND SYMPTOMS: S63.125A Dislocation of unsp interphaln joint of left thumb, init I10 TECHNOLOGIST COMMENTS: pt states has history of RA, 3 months ago thumb started turning in position QUESTION FOR THE RADIOLOGIST: , , L thumb , , , Ordering Provider - CHRISTOPHER BROWN , Rendering Provider - CHRISTOPHER BROWN , PROTOCOL: AP,Lateral and Oblique views [...] change. Electronically signed by:Mervin Epstein. Transcribed by: [email or web address], User Resident: Electronically Signed by: MERVIN EPSTEIN @ 02/13/2017 10:45 AM Normal [facility] Comment on above: Order Comment: , , L thumb , , , Ordering Provider - CHRISTOPHER BROWN , Rendering Provider - CHRISTOPHER BROWN , Vital Signs Date Time Vital Sign Value Performing Clinician Facility 12-16-2023 09:0400 Body height 152.4 cm [facility] 12-16-2023 09:22-0400 Body mass index (BMI) [Ratio] 32.4 kg/m2 [facility] 12-16-2023 09:22-0400 Body temperature 97.2 [degF] [facility] 12-16-2023 09:22-0400 Body weight 75.29 kg [facility] 12-16-2023 09:22-0400 Diastolic blood pressure 81 mm[Hg] [facility] 12-16-2023 09:22-0400 Heart rate 73 /min [facility] 12-16-2023 09:22-0400 Respiratory rate 20 /min [facility] 12-16-2023 09:22-0400 SaO2% (BldA) [Mass fraction] 99 % [facility] 12-16-2023 09:22-0400 Systolic blood pressure 113 mm[Hg] [facility] 12-19-2021 09:30-0400 Body height 152.4 cm Candi Bernsteinyonas Other [employer] Other 12-19-2021 09:30-0400 Body mass index (BMI) [Ratio] 34.37 kg/m2 Candi Bernsteinyonas Other [employer] Other 12-19-2021 09:30-0400 Body temperature 96.9 [degF] Candi Dayban Other [employer] Other 12-19-2021 09:30-0400 Body weight 79.83 kg Candi Ariel Other [employer] Other 12-19-2021 09:30-0400 Diastolic blood pressure 72 mm[Hg] Candi Ariel Other [employer] Other 12-19-2021 09:30-0400 Respiratory rate 20 /min Candi Dayban Other [employer] Other 12-19-2021 09:30-0400 SaO2% (BldA) [Mass fraction] 99 % Candi George Other [employer] Other 12-19-2021 09:30-0400 Systolic blood pressure 120 mm[Hg] Candi George Other [employer] Other 10-13-2020 14:25-0400 BP Diastolic 89 mm[Hg] [employer] Phone: 10-13-2020 14:25-0400 BP Systolic 135 mm[Hg] [employer] Phone: 10-13-2020 14:25-0400 Pulse (Heart Rate) 81 /min [employer] Phone: 10-13-2020 14:25-0400 Respiratory Rate 16 /min [employer] Phone: 10-13-2020 14:00-0400 Pulse Oximetry 98 % [employer] Phone: 10-13-2020 11:13-0400 BMI (Body Mass Index) 34.76 kg/m2 [employer] Phone: 10-13-2020 11:13-0400 Body Temperature 98.01 [degF] [employer] Phone: 10-13-2020 11:13-0400 Body weight 80.74 kg [employer] Phone: Encounters Encounter Date Encounter Type Care Provider Facility Start: 03-05-2024 End: 03-05-2024 ambulatory FLORY Do [facility] Start: 03-04-2024 ambulatory FLORY Do [facility] Start: 02-07-2024 ambulatory [facility] [place] [place] Start: 12-26-2023 End: 12-26-2023 ambulatory FLORY Hi [facility] Start: 12-18-2023 End: 12-18-2023 [facility] Start: 12-16-2023 End: 12-16-2023 ambulatory [facility] Work Phone: Start: 12-16-2023 End: 12-16-2023 Patient encounter procedure [facility] Work Phone: Start: 12-13-2023 End: 12-16-2023 ambulatory BOB [facility] Start: 12-04-2023 End: 12-04-2023 ambulatory FLORY Do [facility] Start: 09-03-2023 End: 09-03-2023 ambulatory FLORY Do [facility] Start: 08-13-2023 End: 08-13-2023 ambulatory LINK [place] Not Available Start: 08-06-2023 End: 08-06-2023 ambulatory JOSEFA MARTINEZ Not Available Start: 05-14-2023 End: 05-14-2023 ambulatory FLORY Do [facility] Start: 02-04-2023 End: 02-05-2023 ambulatory Frank JOE Facility:[facility] Start: 11-06-2022 End: 11-07-[address] VINICIUS BULLOCK Facility:[facility] Start: 09-11-2022 End: 09-12-[address] VINICIUS BULLOCK Facility:[facility] Start: 08-13-2022 End: 08-13-2022 ambulatory Josefa Martinez Facility:[facility] Start: 08-13-2022 End: 08-13-2022 ambulatory MD Josefa Martinez Work Phone: [facility] Work Phone: Start: 08-13-2022 End: 08-13-2022 Patient encounter procedure MD Josefa Martinez Work Phone: [facility] [place] Work Phone: Start: 07-25-2022 End: 07-25-2022 ambulatory Josefa Martinez Facility:[facility] Start: 07-25-2022 End: 07-25-2022 ambulatory MD Josefa Martinez Work Phone: [facility] Work Phone: Start: 07-25-2022 End: 07-25-2022 Patient encounter procedure MD Josefa Martinez Work Phone: [facility] Work Phone: Start: 06-11-2022 End: 06-11-2022 Subsequent hospital visit by physician Josefa Martinez MD Work Phone: [facility] Start: 04-11-2022 End: 04-11-2022 Subsequent hospital visit by physician Josefa Martinez MD Work Phone: [facility] Start: 02-15-2022 End: 02-15-2022 Subsequent hospital visit by physician Josefa Martinez MD Work Phone: [facility] Start: 02-09-2022 End: 02-10-2022 ambulatory Frank JOE Facility:[facility] Start: 12-19-2021 End: 12-19-2021 ambulatory Candi George Other [employer] Other Start: 12-19-2021 Office outpatient visit 15 [...] by physician Apple Manriquez Dr Room 2 [facility] Comment on above: Urinary urgency Start: 02-07-2021 End: 02-07-2021 Subsequent hospital visit by physician Josefa Martinez Work Phone: [facility] Start: 12-13-2020 End: 12-13-2020 Subsequent hospital visit by physician Josefa Martinez Work Phone: [facility] Start: 10-13-2020 End: 10-13-2020 Emergency department patient visit Zakiya Lea Knight Work Phone: [facility] ED Comment on above: Fall, initial encoun ter (Primary Dx); Abrasion of scalp, initial encounter Start: 10-13-2020 End: 10-13-2020 Subsequent hospital visit by physician Josefa ANGEL[facility] Start: 11-10-2019 End: 11-12-2019 Subsequent hospital visit by physician Apple Manriquez Dr Room 4 [facility] Comment on above: Kidney stone Start: 01-27-2018 End: 01-28-2018 Ambulatory DEFAULT PHYSICIAN Facility:[facility] Start: 04-25-2017 End: 04-26-2017 Ambulatory DEFAULT PHYSICIAN Facility:[facility] Start: 04-15-2017 End: 04-16-2017 [facility] Start: 02-13-2017 End: 02-14-2017 Ambulatory BOB [place] Facility:[facility] Procedures Date Procedure Procedure Detail [...] Work Phone: Start: 04-04-2021 Creatinine blood Vinicius Bullokc MD Work Phone: Start: 04-04-2021 Hepatic function [...] 11-10-2019 Radiologic exam abdo men 1 view Frankjavan Joe Work Phone: Start: 04-15-2017 ANESTH LOWER ARM SURGERY TENNILLE RODRÍGUEZ Start: 04-15-2017 FUSION OF FINGER JOINT OREN LOPES Plan of Treatment Date Care Activity Detail Author Start: 08-31-2028 DTaP/Tdap/Td vaccine (4 - Td or Tdap) DTaP/Tdap/Td vaccine (4 - Td or Tdap) [facility] Start: 08-31-2028 DTaP/Tdap/Td vaccine (4 - Td) DTaP/Tdap/Td vaccine (4 - Td) [facility] [place] Start: 10-03-2022 Creatinine measurement Creatinine [facility] Start: 05-30-2022 [facility] Start: 04-04-2022 Creatinine [facility] Work Phone: Start: 03-29-2022 Influenza vaccination Flu vaccine (# 1) [facility] [employer] Start: 02-26-2022 Influenza vaccination Flu vaccine (# 1) [facility] [employer] Start: 02-07-2022 Creatinine measurement [facility]inine [facility] Work Phone: Start: 12-13-2021 Creatinine measurement Creatinine [facility] Work Phone: Start: 10-13-2021 Creatinine measurement Creatinine [facility] Work Phone: Start: 10-11-2021 COVID-19 Vaccine (4 - Booster for Caden series) COVID-19 Vaccine (4 - Booster for Caden series) [facility] Start: 03-29-2021 [facility] Start: 12-22-2020 COVID-19 Vaccine (2 - Booster for Caden series) COVID-19 Vaccine (2 - Booster for Caden series) [place] Start: 03-29-2020 Influenza vaccination [place], [place] Start: 10-06-2017 Lipid panel [facility] Start: 10-06-2017 Lipid screen Lipid screen [place], [place] Start: 10-23-2016 Creatinine monitoring Creatinine mon itoring [place], [place] Start: 10-23-2016 Potassium [Moles/vol ume] in Serum or Plasma Potassium [place] Start: 10-23-2016 Potassium monitoring Potassium monit oring [place] Start: 03-24-2016 Shingles Vaccine (2 of 3) Shingles Vaccine (2 of 3) [place] Start: 2014 Breast cancer screen Breast cancer s creen [place], [place] Start: 2014 Colon cancer screen colonoscopy Colon cancer screen colonoscopy [place], [place] Start: 2014 Screening for malign ant neoplasm of breast Breast cancer screen [place] Start: 2014 Screening for malign ant neoplasm of colon Colon cancer screen colonoscopy [place] Work Phone: Start: 08-30-2012 Screening for malign ant neoplasm of colon [place] Start: 08-31-2011 Screening for malign ant neoplasm of colon Colorectal Cancer Screen [place] Start: 2009 Screening for malign ant neoplasm of colon [place] Start: 1994 Screening for malign ant neoplasm of cervix [place] Start: 1985 Cervical cancer screen Cervical canc er screen [place], [place] Start: 1985 Screening for malign ant neoplasm of cervix [place] Start: 1982 Hepatitis C screening Hepatitis C sc reen [place] Start: 1980 COVID-19 Vaccine (1) COVID-19 Vaccin e (1) [facility] Work Phone: Start: 1979 HIV screen HIV screen [place], [place] Start: 1979 HIV screening HIV screen [facility] Start: 1976 COVID-19 Vaccine (1) COVID-19 Vaccin e (1) [facility] Work Phone: Start: 1976 Depression Screen Depression Screen [facility] Start: 1964 Hepatitis C screen [facility]atitis C scree [facility] [place] [place] Start: 1964 Hepatitis C screening Hepatitis C sc [facility] Chest WO contrast [facility] Immunizations Immunization Date Immunization Notes Care Provider Fa cility 08-16-2021 COVID-19 Moderna Candi Peters n Other [facility] 10-14-2020 COVID-19 Vaccine Gianluca ssen - Documentation Purposes Only Candi George Other [facility] Payers Date Payer Category Payer Unknown [id number] 2022 Self-pay [id number] 2019 Unknown [employer] xxxxxxxxx 2019-Present [phone] [address] [place] [address] xxxxxxxxx [id number] 2015 Unknown [id number] 1965 Unknown [id number] 1964 Unknown [id number] 1964 Unknown [id number] 1965 Unknown [id number] 1964 Unknown [id number] 1964 Unknown [id number] 1964 Unknown [id number] 1964 Unknown [id number] 1959 Unknown [id number] Unknown Unknown [id number] Unknown [id number] Social History Date Type Detail Facility Start: 01-29-2013 End: 12-16-2023 Tobacco [facility] status [facility] Start: 01-29-2013 End: 05-20-2022 Alcohol intake Current non-drinker of alcohol (finding) [facility] [place] Start: 1965 Sex Assigned At Not on file M [place], [place] Start: 10-13-2020 Tobacco use and exposure Never used [employer] Phone: Start: 05-10-2022 End: 05-20-2022 Exposure to SARS-CoV-2 (event) Not sure [employer] Phone: Sex Assigned At Sex Assigned At Bir [employer] Other History of tobacco use Current smoker SALLY LORI [email or web address] Phone: Start: 1965 Sex Assigned At Female F [facility] Clinical Notes 12-19-2021 to 03-05-2024 Note Date & Type Note Facility 03-05-2024 Note Subjective Sylvia Zavala is a 58 y.o. year old female patient being seen for pulmonary arterial hypertension. Patient relatively doing well. She denied chest pain or chest discomfort. She has stable dyspnea on exertion with minimal dizziness but no palpitations. 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 (CMS/HCC) Contracture, left ankle Idiopathic gout ILD (interstitial lung disease) (CMS/HCC) Myalgia Myopathy Peripheral venous insufficiency Pulmonary fibrosis (CMS/HCC) Raynaud disease Reflux gastritis Rheumatoid arthritis in remission (CMS/HCC) Stage 3a chronic kidney disease (CMS/HCC) Wellness examination Family History Problem Relation Name Age of Onset Hypertension Mother Hypertension Father Social History Tobacco Use Smoking status: Former Types: Cigarettes Smokeless tobacco: Never Vaping Use Vaping Use: Never used Substance Use Topics Alcohol use: Not Currently Review of Systems Cardiovascular: Positive for dyspnea on exertion. All other systems reviewed and are negative. Objective Visit Vitals OB Status Postmenopausal Smoking Status Former Physical Exam Physical Exam 03/05/2024 10:48 AM BP 112/60 Pulse 65 SpO2 97 % Weight 77.1 kg (170 lb) Height 1.524 m (5') Constitutional: Appearance: Normal appearance. HENT: Head: Normocephalic [...] the morning. Do not crush, chew, or split. (Patient not taking: Reported on 12/18/2023), Disp: 90 tablet, Rfl: 3 ambrisentan (Letairis) 5 mg tablet, Take 1 tablet (5 mg) by mouth in the morning. Do not crush, chew, or split., Disp: 30 tablet, Rfl: 3 aspirin 81 mg EC tablet, Take 81 mg by mouth in the morning., Disp: , Rfl: atorvastatin (Lipitor) 40 mg tablet, Take 40 mg by mouth in the morning., Disp: [...] mouth in the morning., Disp: , Rfl: macitentan (Opsumit) 10 mg tablet, Take 10 mg by mouth in the morning. (Patient not taking: Reported on 12/18/2023), Disp: 90 tablet, Rfl: 3 NIFEdipine XL (Procardia XL) 60 mg 24 hr tablet, Take 60 mg by mouth in the morning., Disp: , Rfl: omeprazole (PriLOSEC) [address] capsule, Take 20 mg by mouth before breakfast and before evening meal., Disp: , Rfl: sulfaSALAzine (Azulfidine) 500 mg EC tablet, Take 1,000 mg by mouth in the morning and at bedtime., Disp: , Rfl: tadalafil (Cialis) 20 mg tablet, Take 1 tablet (20 mg) by mouth in the morning. (Patient not taking: Reported on 05/14/2023), Disp: 90 tablet, Rfl: 3 tolterodine LA (Detrol LA) 4 mg 24 hr capsule, Take 4 mg by mouth in the morning., Disp: , Rfl: Recent Labs Lab Results Component Value Date NA 137 10/03/2022 K 3.8 10/03/2022 CL 103 10/03/2022 CO2 27 10/03/2022 BUN 30 (H) 10/03/2022 CREATININE 1.44 (H) 10/03/2022 GLUCOSE 101 (H) 10/03/2022 (more content not included)... [facility] 01-29-2024 Note Prior authorization was completed for patient 01/20/2024, for medication Abrisentan. The request has been approved from 01/28/2024-07/30/2024. Patient must that this is considered a Specialty medication, therefore patients plan requires that the medication be ordered through [facility] Phone . Will contact patient and inform her that this medication has been approved and that the specialty pharmacy will need to be contacted. [facility] 01-23-[address]Khouri alley ZHAO and that it is excluded from patients plan. Dr. Pruitt asked to send in Ambrisentan 5 mg was sent to patients pharmacy [facility] 12-25-2023 Note Received update on O psumit for this patient. Medication is not able to be approved because the medication is excluded from patients pharmacy benefit plan. However Generic Ambrisentan or Generic Bosentan are on the Patient pharmacy benefit plan. Because the denial is based on on the patient's pharmacy beneifit plan and not medical necessity , an appeal will not be available. [facility] 12-25-2023 Note Prior Authorization has been completed for this patient for the medication Opsumit 10 mg. Determination is pending will update once an outcome has been received [facility] 12-18-2023 Note Patient: Sylvia Jewell Procedure Information Date/Time: 12/18/23 0900 Procedure: Right heart cath Location: [facility] (Cath) Providers: Maximilian Luz MD [...] with fellow and attending. Additional Equipment Requests [facility] 12-04-2023 Note ------ Attestation signed by Flory Pruitt MD at 12/04/2023 11:23 AM I personally saw and examined the patient on the same date of service as resident/fellow Dr. Cortez. I discussed the findings and therapeutic plan with the resident/fellow Dr. Cortez. I agree with the documentation, except for any edits/updates below. Teaching Physician's Revisions: None ------ Subjective Sylvia Zavala is a 58 y.o. year old female [...] (CMS/HCC) Chest pain Coronary artery disease involving [place] coronary artery of [place] heart without angina pectoris Deficiency anemia Essential [...] physical exam H (more content not included)... [facility] 09-03-2023 Note Subjective Earlynne Red is a [...] (CMS/HCC) Chest pain Coronary artery disease involving [place] coronary artery of [place] heart without angina pectoris Deficiency anemia Essential [...] to provide her medication. I asked my speech pathologist assistant and Feli THOMPSON, to call [facility] special pharmacy and send notes medication by mail. We will focus on her getting her medication. We will try to find a way to (more content not included)... [facility] 05-14-2023 Note [facility] Note Chief Complaint: PAH [...] challenged by insurance to provide her medication. [facility] specialty pharmacy told her that tadalafil is just for men and not for woman. We will try again again to get her back on macitentan and adcirca and push insurance to cover her as much as we can. I asked my speech pathologist assistant and MA, Feli, to call [facility] special pharmacy and send notes medication by mail. We will try to find a way to cover her medication. 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 [facility] 12-19-2021 Evaluation note Encounter Date Diagnosis Assessment Notes November, Pulmonary fibrosis, unspecified (ICD-10 - J84.10) November, Systemic sclerosis, unspecified (ICD-10 - M34.9) November, 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) [facility] Other Evaluation note* Diagnosis Urinary urgency Urgency of urination documented in this encounter [facility] Phone: evaluation note* Diagnosis Pulmonary fibrosis (HCC) Postinflammatory pulmonary fibrosis documented in this encounter [facility] Phone: evaluation noteNo assessment information available [facility] Work Phone: Evaluation note* Diagnosis Onset Date Resolution Status History of tobacco abuse acu te 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 acute Pulmonary fibrosis, unspecified acute 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 acute Scleroderma acute [facility] Work Phone: History general Narrative - Reported* Type Description Date Medical History scleroderma Medical History Hypertension Medical History pulmonary hypertension Medical History Esophageal reflux Surgical History D&C 2000 Surgical History C section 2001 Surgical History tubal ligation 2001 [facility] Other Summary Purpose Family History No Family History Records Found Relationship Condition Age at Onset Recorded Date/T saleem Not Specified Diabetes mellitus Unknown brother Malignant neoplasm Unknown father Hypertension Unknown Not Specified Hypertension Unknown Advance Directives No Advanced Directives Records FoundDocuments on File Type Date Recorded Patient 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 * Head Injury (Italian) documented in this encounter Chief Complaint and [...] and content) DATE CREATED AUTHOR 01/31/2018 [facility] DATE CREATED AUTHOR AUTHOR'S ORGANIZ ATION 09/01/2022 [facility] DATE CREATED AUTHOR AUTHOR'S ORGANIZ ATION 11/12/2022 [facility] DATE CREATED AUTHOR AUTHOR'S ORGANIZ ATION 02/05/[address] 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 Pt denies LOC, states I saw stars Specialty Diagnoses / Procedures Referred By Suki chaudhari Referred To Contact Radiology Diagnoses Pulmonary fibrosis (HCC) Procedures CT CHEST HIGH RESOLUTION CT CHEST WO CONTRAST Candi George MD Referral ID Status Reason Start Date Expiration Date Visits Re quested Visits Authorized [id number] Closed 11/06/2021 12/05/2021 1 1 Care Teams (unrecognized sec tion and content) [place] Relationship Specialty Start Date End Date Josefa Martinez MD [address] [place] [address] PCP - General 10/03/12 [facility] Relationship Specialty Start Date End Date Josefa Martinez MD [address] [place] [phone] PCP - General 10/03/12 [place] Relationship Specialty Start Date End Date Josefa Martinez MD [address] [phone] PCP - General 10/03/12 Team Status: Inactive Member Role Status Derrick Martinez MD Primary Care Provider, Attending Pro vider Active Team Status: Active Member Role Status Derrick Martinez MD Primary Care Provider Active Team Status: Inactive Member Role Status Dates Josefa Martinez MD Primary Care Provider Active Giacomo Benitez DPM Attending Provider Active Team Status: Inactive Member Role Status Dates Josefa Martinez MD Primary Care Provider Active S tart: December 16, 2023 End: December 16, 2023 Dilan Chapa DO Attending Provider Active art: December 16, 2023 End: December 16, [...] BE BASED ON THE PRIMARY CLINICAL RECORDS. [employer] provides no warranty or guarantee of the accuracy or completeness of information in this document.
[2024-03-23 08:05] LABS: Basophils Absolute Auto 0.1 10^3/uL (0.0-0.1); Eosinophils Absolute Auto 0.3 10^3/uL (0.0-0.7); Eosinophils Percent Auto 5.2 % (0.9-7.0); Hematocrit 40.2 % (36.0-48.0); Hemoglobin 13.1 g/dL (12.0-16.0); Immature Granulocytes Abs Auto 0.01 10^3/uL (0.00-0.03); Immature Granulocytes Pct Auto 0.2 % (0.0-0.5); Lymphocytes Percent Auto 31.4 % (20.5-60.0); Mean Corpuscular HGB Conc 32.6 g/dL (29.9-35.2); Mean Corpuscular Hemoglobin 28.7 pg (26.7-34.0); Mean Platelet Volume 10.2 fL (9.5-13.5); Monocytes Absolute Auto 0.6 10^3/uL (0.3-0.8); Monocytes Percent Auto 9.7 % (1.7-12.0); Neutrophils Absolute Auto 3.3 10^3/uL (1.4-6.5); Neutrophils Percent Auto 52.5 % (43.0-75.0); Platelet Count 295 10^3/uL (150-450); Red Blood Count 4.57 10^6/uL (4.20-5.40); Red Cell Distribution Width 13.5 % (11.0-15.0); White Blood Count 6.2 10^3/uL (4.0-11.0)
[2024-03-23 08:09] LABS: Erythrocyte Sedimentation Rate 13 mm/hr (<=30)
[2024-03-23 08:40] LABS: Alanine Aminotransferase 25 U/L (14-59); Albumin Globulin Ratio 1.1; Albumin Level 3.6 g/dL (3.4-5.0); Alkaline Phosphatase 116 U/L (46-116); Aspartate Amino Transferase 21 U/L (15-37); Bilirubin Direct 0.1 mg/dL (0.0-0.2); Bilirubin Total 0.3 mg/dL (0.2-1.0); Estimated GFR (African America >60 (>=60); Estimated GFR (Non-African Ame 55 (>=60); Globulin 3.4 g/dL
== END 2024-03-23 07:31 | disposition home or self-care (01) ==
LOC: LAB 07:31
PROVIDERS: PCP Family Medicine; Visit Provider Internal Medicine Rheumatology
DX: M05.79 Rheumatoid arthritis with rheumatoid factor of multiple sites without organ or systems involvement (principal); Z79.899 Other long term (current) drug therapy
CPT/HCPCS: 36415; 80076; 82565; 85025; 85652

== ENCOUNTER 2024-05-25 07:37 | Outpatient (OUT) | payer OTHER, SELFPAY ==
--- OUTSIDE RECORDS SUMMARY | 2024-05-25 07:43 | XMS_ITS | CCD ---
Author Organization [facility] Care Team Providers Care Special Skills Officer Name Role Phone RIVER BROWNER Unavailable Unavailable STEPHANIE CHRISTARYAER Unavailable Unavailable MICHELLE, RUGEN Unavailable Unavailable BROWN, CHRISTOPHER Unavailable Unavailable SKIE, OREN Unavailable Unavailable SKIE, OREN Unavailable Unavailable MICHELLE, RUGEN Unavailable Unavailable MICHELLE, RUGEN Unavailable Unavailable CO Unavailable Unavailable SKIE, OREN Unavailable Unavailable CO Unavailable Unavailable PITRODA, TENNILLE Unavailable Unavailable PHYSICIAN, [...] Provider MD Josefa Martinez Primary Care Provider [phone] MD Josefa Martinez Attending Provider MIGUEL Benitez Attending Provider [phone] Josefa Martinez Primary Care Unavailable Giacomo Benitez [...] Translations: [Augmentin] Drug Allergy 1 [facility]OF [facility] Repository (16 sources) Amoxicillin-Pot Clavulanate; Translations: [AMOXICILLIN-PO T CLAVULANATE] Propensity to adverse reactions to drug 3 [place], [place] (1 source) Amoxicillin / Clavulanate Drug Allergy [facility] Other (2 sources) Amoxicillin; Translations: [amoxicillin] Drug Allergy 4 [facility] Repository (1 source) Clavulanate Drug Allergy 4 [facility] Medications Current Medications Medication Drug Class(es) Dates [...] disease (2 sources) Atherosclerotic heart disease of nondalton coronary artery without angina pectoris; Translations: [Atherosclerotic heart disease of nondalton coronary artery without angina pectoris] Onset: 09-21-2022 [...] 02-13-2017 Chronic Other aftercare (1 source) 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; Translations: [OTH 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 CURRENT DRUG THERAPY] Onset: 11-12-2022 Episodic Other [...] Onset: 02-13-2017 Episodic Other aftercare (1 source) assisted (current) use of aspirin; Translations: [INTERMEDIATE (CURRENT) USE OF ASPIRIN] Onset: 04-15-2017 Episodic Results Test Name Value Interpretation Reference Range Facility 29on 03-05-2024 29 Addended by: FELI HURLEY on: 03/05/2024 01:13 PM Modules accepted: Orders Normal [facility] Office Visiton 03-05-2024 Follow-up visit [id number] Sylvia Moon 1965 F Date Provider Department Center 03/05/2024 Mia-FLORY [facility] [address] Family History Problem Relation Age of Onset Hypertension Mother Hypertension Father Family Status - Relation Status Age at Mother Father Level of Service:72344 CO OFFICE/OUTPATIENT ESTABLISHED MOD MDM 30 MIN [facility] 36on 01-31-2024 36 Reorder Per Prior Authorization Patients medication needs to go to [facility]. Medication has been sent [facility] Documentationon 12-25-2023 Documentation [id number] Sylvia Moon 1965 F Date Provider Department Center 12/25/2023 3029-ZACHERY BANEGAS [facility] KEVIN Khalil Family History Problem Relation Age of Onset Hypertension Mother Hypertension Father Family Status - Relation Status Age at Mother Father Reason for Visit and Comments: Prior Authorization [826] - Opsumit Denied Please see note [facility] HPon 12-18-2023 HP H&P reviewed. The patient was examined and there are no changes to the H&P. 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 Will proceed with [facility] for further assessment. Procedure's details, risks and benefits discussed with the patient and she's agreeable. [facility] NURSNOTEon 12-18-2023 NURSNOTE RN educated pt on d/ c instructions. RN encouraged pt to voice any questions or concerns. Pt verbalizes no questions or concerns at this time. Pt was walked off of unit with all of belongings. [facility] CT CHEST WO CONTRASTon 12-14 CT [...] Shar Chery MD 12/15/23 Final result Normal [facility] Abstracton 12-05-2023 Abstract [id number] Aldarom,Earlynne 1965 F Date Provider Department Center 12/05/2023 [facility]FLORY PRUITT C[facility] Family History Problem Relation Age of Onset Hypertension Mother Hypertension Father Family Status - Relation Status Age at Mother Father [facility] 36on 12-04-2023 36 Thank you for the information. We will get this sent to another pharmacy [facility] 12-04-2023 - Attestation signed by Flory Pruitt MD at 12/04/2023 11:23 AM I personally saw and examined the patient on the same date of service as resident/fellow Dr. Cortez. I discussed the findings and therapeutic plan with the resident/fellow Dr. Cortez. I agree with the documentation, except for any edits/updates below. Teaching Physician's Revisions: None Subjective Raúlramon Moon is a 58 y.o. 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 Normal [facility] Office Visiton 12-04-2023 Follow-up visit [id number] [facility] 1965 [facility] Date Provider Department Center 12/04/2023 [facility] [place] Family History Problem Relation Age of Onset Hypertension Mother Hypertension Father Family Status - Relation Status Age at Mother Father Level of Service:01879 CO OFFICE/OUTPATIENT ESTABLISHED MOD MDM 30 MIN (GC) [facility] Office Visiton 09-03-2023 Follow-up visit [id number] Aldarom,Earlynn1965 F Date Provider Department Center 09/03/2023 FLORY [place] Family History Problem Relation Age of Onset Hypertension Mother Hypertension Father Family Status - Relation Status Age at Mother Father Level of Service:32921 CO OFFICE/OUTPATIENT ESTABLISHED MOD MDM 30 MIN [facility] Office Visiton 05-14-2023 Follow-up visit [id number] Aldarom,Earlynne 1965 F Date Provider Department Center 05/14/2023 FLORY [place] Family History Problem Relation Age of Onset Hypertension Mother Hypertension Father Family Status - Relation Status Age at Mother Father Level of Service:06932 CO OFFICE/OUTPATIENT ESTABLISHED MOD MDM 30-39 MIN [facility] RAD - Ultrasound Reporton RAD - Ultrasound Report [id number] [facility] Ambulatory Visit Summaryon 0 02-04-2023 Ambulatory Visit Summary SYLVIA BASS :1965 Visit Date:02/04/2023 Ambulatory Visit Instructions Your Diagnosis OAB (overactive bladder) Incomplete bladder emptying Personal history of kidney stones Tests Performed Urnls Dip Stick Auto w/o Microscopy POC 67212 Your Care Team Attending Physician - Frank [...] MD Where: [facility] Patient Educationon 02-05-20 23 Patient Education Obstetrics [...] these instructions at home: Medicines ? Take flof-zun-gggnqvl and prescription medicines only as told by [...] provider. Document Revised: 04/05/2021 Document Reviewed: 04/05/2021 [employer] Patient Education ? 2022 [employer]. [facility] Urology Office/Clinic Noteon 02-04-2023 Urology Office/Clinic [...] Urology [address], [place] [address] [phone] Additional Instructions: Patient Education Acute Urinary Retention, [...] i (more content not included)... Normal [facility] Comment on above: Result Comment: Elec tronically Signed By: Frank JOE MD\.br\Date and Time Signed: 02/04/23 10:19 EDT\.br\Electronically Co-Signed By: Oneyda Vallecillo\.br\Date and Time Co-Signed: 02/04/23 10:17 EDT CBC AUTO DIFFon 11-06-2022 BASO # 0.1 103/ul Normal 0.0-0.1 [facility] Comment on above: Performed By: #### C BC #### [facility] [address] [place] [address] Dr. Stefany Corral Basophils/100 WBC (Bld) 0.7 % Normal 0.2-2.0 [facility] Comment on above: Performed By: #### C BC #### [facility] [address] [place] [address] Dr. Stefany Corral EO # 0.3 103/ul Normal 0.0-0.7 [facility] Comment on above: Performed By: #### C BC #### [facility] [address] [place] [address] Dr. Stefany Corral Eosinophils/100 WBC (Bld) 3.0 % Normal 0.9-7.0 [facility] Comment on above: Performed By: #### C BC #### [facility] [address] [place] [address] Dr. Stefany Corral Erythrocyte distribution width (RBC) [Ratio] 15.1 % Critically high 11.0-15.0 [facility] Comment on above: Performed By: #### C BC #### [facility] [address] [place] [address] Dr. Stfeany Corral Hematocrit (Bld) [Volume fraction] 36.2 % Normal 36.0-48.0 [facility] Comment on above: Performed By: #### C BC #### [facility] [address] [place] [address] Dr. Stefany Corral Hemoglobin (Bld) [Mass/Vol] 12.0 g/dL Normal 12.0-16.0 [facility] Comment on above: Performed By: #### C BC #### [facility] [address] [place] [address] Dr. Stefany Corral IG # 0.03 10e3/ul Normal 0.00-0.03 [facility] Comment on above: Performed By: #### C BC #### [facility] [address] [place] [address] Dr. Stefany Corral IG % 0.3 % Normal 0.0-0.5 [facility] Comment on above: Performed By: #### C BC #### [facility] [address] [place] [address] Dr. Stefany Corral LYMPH # 2.4 103/ul Normal 1.2-3.8 [facility] Comment on above: Performed By: #### C BC #### [facility] [address] [place] [address] Dr. Stefany Corral Lymphocytes/100 WBC (Bld) 27.4 % Normal 20.5-60.0 [facility] Comment on above: Performed By: #### C BC #### [facility] [address] [place] [address] Dr. Stefany Corral MANUAL DIFF REQ NO Normal [facility] Comment on above: Performed By: #### C BC #### [facility] [address] [place] [address] Dr. Stefany Corral MCH (RBC) [Entitic mass] 28.4 pg Normal 26.7-34.0 [facility] Comment on above: Performed By: #### C BC #### [facility] [address] [place] [address] Dr. Stefany Corral MCHC (RBC) [Mass/Vol] 33.1 g/dL Normal 29.9-35.2 [facility] Comment on above: Performed By: #### C BC #### [facility] [address] [place] [address] Dr. Stefany Corral MCV (RBC) [Entitic vol] 85.6 fL Normal 81.0-99.0 [facility] Comment on above: Performed By: #### C BC #### [facility] [address] [place] [address] Dr. Stefany Corral MONO # 1.0 103/ul Critically high 0.3-0.8 [facility] Comment on above: Performed By: #### C BC #### [facility] [address] [place] [address] Dr. Stefany Corral Monocytes/100 WBC (Bld) 11.2 % Normal 1.7-12.0 [facility] Comment on above: Performed By: #### C BC #### [facility] [address] [place] [address] Dr. Stefany Corral NEUT # 5.0 103/ul Normal 1.4-6.5 [facility] Comment on above: Performed By: #### C BC #### [facility] [address] [place] [address] Dr. Stefany Corral Neutrophils/100 WBC (Bld) 57.4 % Normal 43.0-75.0 [facility] Comment on above: Performed By: #### C BC #### [facility] [address] [place] [address] Dr. Stefany Corral Platelet mean volume (Bld) [Entitic vol] 10.0 fL Normal 9.5-13.5 [facility] Comment on above: Performed By: #### C BC #### [facility] [address] [place] [address] Dr. Stefany Corral PLT 321 103/ul Normal 150-450 [facility] Comment on above: Performed By: #### C BC #### [facility] [address] [place] [address] Dr. Stefany Corral RBC 4.23 106/ul Normal 4.20-5.40 [facility] Comment on above: Performed By: #### C BC #### [facility] [address] [place] [address] Dr. Stefany Corral WBC 8.6 103/ul Normal 4.0-11.0 [facility] Comment on above: Performed By: #### C BC #### [facility] [address] [place] [address] Dr. Stefany Corral CREATININEon 11-06-2022 Creatinine [Mass/Vol] 1.14 mg/dL Critically high 0.55-1.02 [facility] Comment on above: Performed By: #### CHELSIE MILANA #### [facility] [address] [place] [address] Dr. Stefany Corral EGFR-AF GUINEAN 59 mL/min/1.73m2 Critically low >=60 [facility] Comment on above: Performed By: #### CHELSIE MILANA #### [facility] [address] [place] [address] Dr. Stefany Corral EGFR-NON AF GUINEAN 49 mL/min/1.73m2 Critically low >=60 [facility] Comment on above: Performed By: #### CHELSIE MILANA #### [facility] [address] [place] [address] Dr. Stefany Corral LIVER PROFILEon 11-06-2022 Albumin [Mass/Vol] 3.5 g/dL Normal 3.4-5.0 [facility] Comment on above: Performed By: #### PETRONA MILAN #### [facility] [address] [place] [address] Dr. Stefany Corral Albumin/Globulin [Mass ratio] 0.9 {ratio} Normal [facility] Comment on above: Performed By: #### Pawel BETHEA CREA #### [facility] [address] [place] [address] Dr. Stefany Corral ALP [Catalytic activity/Vol] 124 U/L Critically high 46-116 [facility] Comment on above: Performed By: #### CHELSIE MILANA #### [facility] [address] [place] [address] Dr. Stefany Corral ALT [Catalytic activity/Vol] 18 U/L Normal 14-59 [facility] Comment on above: Performed By: #### PETRONA MILAN #### [facility] [address] [address] [address] Stefany Corral AST [Catalytic activity/Vol] 16 U/L Normal 15-37 [facility] Comment on above: Performed By: #### L NEEMA CREA #### [facility] [address] [address] [address] Stefany Corral BILI, CONJUGATED 0.0 mg/dL Normal 0.0-0.2 [facility] Comment on above: Performed By: #### L NEEMA CREA #### [facility] [address] [place] [address] Dr. Stefany Corral Bilirubin [Mass/Vol] 0.2 mg/dL Normal 0.2-1.0 [facility] Comment on above: Performed By: #### L NEEMA CREA #### [facility] [address] [place] [address] Dr. Stefany Corral Globulin (S) [Mass/Vol] 4.0 g/dL Normal [facility] Comment on above: Performed By: #### L NEEMA CREA #### [facility] [address] [place] [address] Dr. Stefany Corral Protein [Mass/Vol] 7.5 g/dL Normal 6.4-8.2 [facility] Comment on above: Performed By: #### L NEEMA CREA #### [facility] [address] [place] [address] Dr. Stefany Corral SED RATE WESTERGRENon 2022 SED RATE 19 mm/hr Normal <=30 [facility] Comment on above: Performed By: #### S EDR #### [facility] [address] [place] [address] Dr. Stefany Corral CBC AUTO DIFFon 09-11-2022 BASO # 0.1 103/ul Normal 0.0-0.1 [facility] Comment on above: Performed By: #### C BC #### [facility] [address] [place] [address] Dr. Stefany Corral Basophils/100 WBC (Bld) 0.6 % Normal 0.2-2.0 [facility] Comment on above: Performed By: #### C BC #### [facility] [address] [place] [address] Dr. Stefany Corral EO # 0.1 103/ul Normal 0.0-0.7 [facility] Comment on above: Performed By: #### C BC #### [facility] [address] [place] [address] Dr. Stefany Corral Eosinophils/100 WBC (Bld) 1.4 % Normal 0.9-7.0 [facility] Comment on above: Performed By: #### C BC #### [facility] [address] [place] [address] Dr. Stefany Corral Erythrocyte distribution width (RBC) [Ratio] 13.7 % Normal 11.0-15.0 [facility] Comment on above: Performed By: #### C BC #### [facility] [address] [place] [address] Dr. Stefany Corral Hematocrit (Bld) [Volume fraction] 40.2 % Normal 36.0-48.0 [facility] Comment on above: Performed By: #### C BC #### [facility] [address] [place] [address] Dr. Stefany Corral Hemoglobin (Bld) [Mass/Vol] 13.4 g/dL Normal 12.0-16.0 [facility] Comment on above: Performed By: #### C BC #### [facility] [address] [place] [address] Dr. Stefany Corral IG # 0.03 10e3/ul Normal 0.00-0.03 [facility] Comment on above: Performed By: #### C BC #### [facility] [address] [place] [address] Dr. Stefany Corral IG % 0.3 % Normal 0.0-0.5 [facility] Comment on above: Performed By: #### C BC #### [facility] [address] [place] [address] Dr. Stefany Corral LYMPH # 2.4 103/ul Normal 1.2-3.8 [facility] Comment on above: Performed By: #### C BC #### [facility] [address] [place] [address] Dr. Stefany Corral Lymphocytes/100 WBC (Bld) 27.4 % Normal 20.5-60.0 [facility] Comment on above: Performed By: #### C BC #### [facility] [address] [place] [address] Dr. Stefany Corral MANUAL DIFF REQ NO Normal [facility] Comment on above: Performed By: #### C BC #### [facility] [address] [place] [address] Dr. Stefany Corral MCH (RBC) [Entitic mass] 27.5 pg Normal 26.7-34.0 [facility] Comment on above: Performed By: #### C BC #### [facility] [address] [place] [address] Dr. Stefany Corral MCHC (RBC) [Mass/Vol] 33.3 g/dL Normal 29.9-35.2 [facility] Comment on above: Performed By: #### C BC #### [facility] [address] [place] [address] Dr. Stefany Corral MCV (RBC) [Entitic vol] 82.4 fL Normal 81.0-99.0 [facility] Comment on above: Performed By: #### C BC #### [facility] [address] [place] [address] Dr. Stefany Corral MONO # 0.8 103/ul Normal 0.3-0.8 [facility] Comment on above: Performed By: #### C BC #### [facility] [address] [place] [address] Dr. Stefany Corral Monocytes/100 WBC (Bld) 8.6 % Normal 1.7-12.0 [facility] Comment on above: Performed By: #### C BC #### [facility] [address] [place] [address] Dr. Stefany Corral NEUT # 5.5 103/ul Normal 1.4-6.5 [facility] Comment on above: Performed By: #### C BC #### [facility] [address] [address] [address] Stefany Corral Neutrophils/100 WBC (Bld) 61.7 % Normal 43.0-75.0 [facility] Comment on above: Performed By: #### C BC #### [facility] [address] [address] [address] Stefany Corral Platelet mean volume (Bld) [Entitic vol] 10.2 fL Normal 9.5-13.5 [facility] Comment on above: Performed By: #### C BC #### [facility] [address] [address] [address] Stefany Corral PLT 326 103/ul Normal 150-450 [facility] Comment on above: Performed By: #### C BC #### [facility] [address] [place] [address] Dr. Stefany Corral RBC 4.88 106/ul Normal 4.20-5.40 [facility] Comment on above: Performed By: #### C BC #### [facility] [address] [address] [address] Stefany Corral WBC 8.9 103/ul Normal 4.0-11.0 [facility] Comment on above: Performed By: #### C BC #### [facility] [address] [place] [address] Dr. Stefany Corral CREATININEon 09-11-2022 Creatinine [Mass/Vol] 1.34 mg/dL Critically high 0.55-1.02 [facility] Comment on above: Performed By: #### PETRONA MILAN #### [facility] [address] [address] [address] Stefany Corral EGFR-AF GUINEAN 49 mL/min/1.73m2 Critically low >=60 [facility] Comment on above: Performed By: #### PETRONA MILAN #### [facility] [address] [place] [address] Dr. Stefany Corral EGFR-NON AF GUINEAN 41 mL/min/1.73m2 Critically low >=60 [facility] Comment on above: Performed By: #### Pawel BETHEA CREA #### [facility] [address] [place] [address] Dr. Stefany Corral LIVER PROFILEon 09-11-2022 Albumin [Mass/Vol] 3.8 g/dL Normal 3.4-5.0 [facility] Comment on above: Performed By: #### Pawel BETHEA CREA #### [facility] [address] [place] [address] Dr. Stefany Corral Albumin/Globulin [Mass ratio] 0.9 {ratio} Normal [facility] Comment on above: Performed By: #### CHELSIE IMLANA #### [facility] [address] [place] [address] Dr. Stefany Corral ALP [Catalytic activity/Vol] 114 U/L Normal 46-116 [facility] Comment on above: Performed By: #### CHELSIE MILANA #### [facility] [address] [place] [address] Dr. Stefany Corral ALT [Catalytic activity/Vol] 12 U/L Critically low 14-59 [facility] Comment on above: Performed By: #### CHELSIE MILANA #### [facility] [address] [place] [address] Dr. Stefany Corral AST [Catalytic activity/Vol] 17 U/L Normal 15-37 [facility] Comment on above: Performed By: #### CHELSIE MILANA #### [facility] [address] [place] [address] Dr. Stefany Corral BILI, CONJUGATED 0.0 mg/dL Normal 0.0-0.2 [facility] Comment on above: Performed By: #### CHELSIE MILANA #### [facility] [address] [place] [address] Dr. Stefany Corral Bilirubin [Mass/Vol] 0.2 mg/dL Normal 0.2-1.0 [facility] Comment on above: Performed By: #### CHELSIE MILANA #### [facility] [address] [place] [place] [address] Dr. Stefany Corral Globulin (S) [Mass/Vol] 4.3 g/dL Normal T [facility] Comment on above: Performed By: #### L PETRONA BETHEA #### [facility] [address] [address] [address] Stefany Corral Protein [Mass/Vol] 8.1 g/dL Normal 6.4-8.2 [facility] Comment on above: Performed By: #### L PETRONA BETHEA #### [facility] [address] [address] [address] Stefany Corral [facility] 79 mm/hr Critically high <=30 [facility] Comment on above: Performed By: #### S EDR #### [facility] [address] [place] [address] Dr. Stefany Corral XR chest 2V*on 08-13-2022 XR chest 2V* [facility] [place] [address] [place] [address] XRay Report Signed Patient: Sylvia Bass MR#: [id number] : 1965 Acct:[id number] Age/Sex: 57 / F ADM Date: 08/13/22 Loc: XD Room: Type: [facility] Attending Dr: Giacomo Benitez DPM Copies [...] Devonte Platt M.D.08/13/2022 2:42 PM Dictation Location: [place] [address] Transcribed By: [facility] 08/13/22 1442 Dictated By: Devonte Platt DO 08/13/22 1441 Signed By: 08/13/22 1442 Normal [facility] Basic Metabolic Panelon 12-2 Anion gap [Moles/Vol] 15.3 mmol/L High 6.0-15.0 [facility] Comment on above: Order Comment: PT IS NON FASTING Reason for Exam HAV (hallux abducto valgus), left;Metatarsalgia of right michelet Performed By: #### C BC, BMP #### [facility] [address] Calcium [Mass/Vol] 9.2 mg/dL Normal 8.2-10.2 [facility] Comment on above: Order Comment: PT IS NON FASTING Reason for Exam HAV (hallux abducto valgus), left;Metatarsalgia of right michelet Result Comment: PERF ORMED BY: [place] [address] PATHOLOGIST TIMBER KILLER JESUSITA NICHOLE M.D. Performed By: #### C BC, BMP #### [address] Chloride [Moles/Vol] 98 mmol/L Normal 95-114 [facility] Comment on above: Order Comment: PT IS NON FASTING Reason for Exam HAV (hallux abducto valgus), left;Metatarsalgia of right michelet Performed By: #### C BC, BMP #### [address] CO2 [Moles/Vol] 23.6 mmol/L Normal 22.0-30.0 [facility] Comment on above: Order Comment: PT IS NON FASTING Reason for Exam HAV (hallux abducto valgus), left;Metatarsalgia of right michelet Performed By: #### C BC, BMP #### [facility] [address] [place] [address] [place] Creatinine [Mass/Vol] 1.48 mg/dL High 0.44-1.03 [facility] Comment on above: Order Comment: PT IS NON FASTING Reason for Exam HAV (hallux abducto valgus), left;Metatarsalgia of right michelet Performed By: #### C BC, BMP #### [facility] [address] [place] [id number] [place] Estimated GFR ( Shandra 44 [facility] Comment on above: Order Comment: PT IS NON FASTING Reason for Exam HAV (hallux abducto valgus), left;Metatarsalgia of right michelet Result Comment: GFR estimated reference range: According to KDOQI guidelines, <60 ml/min/1.73m2 is sufficient to diagnose a patient with chronic kidney disease. Performed By: #### C BC, BMP #### [facility] [address] Estimated GFR (Non- Am 36 [facility] Comment on above: Order Comment: PT IS NON FASTING Reason for Exam HAV (hallux abducto valgus), left;Metatarsalgia of right michelet Performed By: #### C BC, BMP #### [address] Glucose [Mass/Vol] 95 mg/dL Normal 70-100 [facility] Comment on above: Order Comment: PT IS NON FASTING Reason for Exam HAV (hallux abducto valgus), left;Metatarsalgia of right michelet Result Comment: [facility] Glucose Reference Range is dependent on time and content of last meal. Glucose of more than 200 mg/dL in a nonstressed, ambulatory subject supports the diagnosis of Diabetes Mellitus. ADA recommended reference range Performed By: #### C BC, BMP #### [address] Potassium [Moles/Vol] 3.9 mmol/L Normal 3.5-5.1 [facility] Comment on above: Order Comment: PT IS NON FASTING Reason for Exam HAV (hallux abducto valgus), left;Metatarsalgia of right michelet Performed By: #### C BC, BMP #### [facility] [address] Sodium [Moles/Vol] 133 mmol/L Low 136-146 [facility] Comment on above: Order Comment: PT IS NON FASTING Reason for Exam HAV (hallux abducto valgus), left;Metatarsalgia of right michelet Performed By: #### C VIVIANA, BMP #### [facility] [address] Urea nitrogen [Mass/Vol] 29 mg/dL High 9 [facility] Comment on above: Order Comment: PT IS NON FASTING Reason for Exam HAV (hallux abducto valgus), left;Metatarsalgia of right michelet Performed By: #### C VIVIANA, BMP #### [facility] [address] [place] [address] [place] Basophils Auto (Bld) [#/Vol] Ordered By: Josefa Martinez on 07-25-2022 Basophils (Bld) [#/Vol] 0.0 10*3/uL 0.0-0.2 [facility] Basophils/100 WBC Auto (Bld) Ordered By: Josefa Martinez on 07-25-2022 Basophils/100 WBC (Bld) 0.4 % . F [facility] Complete Blood Count Auto Di ffon 07-25-2022 Basophils (Bld) [#/Vol] 0.0 10*3/uL Normal 0.0-0.2 [facility] Comment on above: Order Comment: Reaso n for Exam HAV (hallux abducto valgus), left;Metatarsalgia of right michelet Result Comment: PERF ORMED BY: [place] [address] PATHOLOGIST TIMBER KILLER JESUSITA NICHOLE M.D. Performed By: #### C VIVIANA, BMP #### [address] Basophils/100 WBC (Bld) 0.4 % Normal . [facility] Comment on above: Order Comment: Reaso n for Exam HAV (hallux abducto valgus), left;Metatarsalgia of right michelet Performed By: #### C BC, BMP #### [address] Eosinophils (Bld) [#/Vol] 0.5 10*3/uL High 0.0-0.45 [facility] Comment on above: Order Comment: Reaso n for Exam HAV (hallux abducto valgus), left;Metatarsalgia of right michelet Performed By: #### C BC, BMP #### [facility] [address] Eosinophils/100 WBC (Bld) 6.1 % Normal . [facility] Comment on above: Order Comment: Reaso n for Exam HAV (hallux abducto valgus), left;Metatarsalgia of right michelet Performed By: #### C BC, BMP #### [facility] [address] Erythrocyte distribution width (RBC) [Ratio] 14.9 % Normal 11.9-15.3 [facility] Comment on above: Order Comment: Reaso n for Exam HAV (hallux abducto valgus), left;Metatarsalgia of right michelet Performed By: #### C BC, BMP #### [address] Hematocrit (Bld) [Volume fraction] 38.3 % Normal 34.0-46.4 [facility] Comment on above: Order Comment: Reaso n for Exam HAV (hallux abducto valgus), left;Metatarsalgia of right michelet Performed By: #### C BC, BMP #### [address] Hemoglobin (Bld) [Mass/Vol] 12.5 g/dL Normal 11.8-15.4 [facility] Comment on above: Order Comment: Reaso n for Exam HAV (hallux abducto valgus), left;Metatarsalgia of right michelet Performed By: #### C BC, BMP #### [address] Lymphocytes (Bld) [#/Vol] 2.6 10*3/uL Normal 1.00-4.8 [facility] Comment on above: Order Comment: Reaso n for Exam HAV (hallux abducto valgus), left;Metatarsalgia of right michelet Performed By: #### C BC, BMP #### [place] [address] [place] Lymphocytes/100 WBC (Bld) 32.8 % Normal . [facility] Comment on above: Order Comment: Reaso n for Exam HAV (hallux abducto valgus), left;Metatarsalgia of right michelet Performed By: #### C BC, BMP #### [facility] [address] MCH (RBC) [Entitic mass] 27.1 pg Normal 24.7-34.3 [facility] Comment on above: Order Comment: Reaso n for Exam HAV (hallux abducto valgus), left;Metatarsalgia of right michelet Performed By: #### C BC, BMP #### [address] MCV (RBC) [Entitic vol] 83.2 fL Normal 80-100 [facility] Comment on above: Order Comment: Reaso n for Exam HAV (hallux abducto valgus), left;Metatarsalgia of right michelet Performed By: #### C BC, BMP #### [address] Mean Corpuscular HGB Conc 32.5 g/dL Normal 32.0-35.0 [facility] Comment on above: Order Comment: Reaso n for Exam HAV (hallux abducto valgus), left;Metatarsalgia of right michelet Performed By: #### C BC, BMP #### [address] Monocytes (Bld) [#/Vol] 1.0 10*3/uL High 0.0-0.8 [facility] Comment on above: Order Comment: Reaso n for Exam HAV (hallux abducto valgus), left;Metatarsalgia of right michelet Performed By: #### C BC, BMP #### [address] Monocytes/100 WBC (Bld) 12.5 % Normal . [facility] Comment on above: Order Comment: Reaso n for Exam HAV (hallux abducto valgus), left;Metatarsalgia of right michelet Performed By: #### C BC, BMP #### [facility] [address] Neutrophils (Bld) [#/Vol] 3.8 10*3/uL Normal 1.8-7.7 [facility] Comment on above: Order Comment: Reaso n for Exam HAV (hallux abducto valgus), left;Metatarsalgia of right michelet Performed By: #### C BC, BMP #### [facility] [address] Neutrophils/100 WBC (Bld) 48.2 % Normal . [facility] Comment on above: Order Comment: Reaso n for Exam HAV (hallux abducto valgus), left;Metatarsalgia of right michelet Performed By: #### C BC, BMP #### [address] NRBC% 0.1 /100{WBC} Normal 0-0.5 [facility] Comment on above: Order Comment: Reaso n for Exam HAV (hallux abducto valgus), left;Metatarsalgia of right michelet Performed By: #### C BC, BMP #### [address] Platelet mean volume (Bld) [Entitic vol] 8.6 fL Normal 6.3-10.7 [facility] Comment on above: Order Comment: Reaso n for Exam HAV (hallux abducto valgus), left;Metatarsalgia of right michelet Performed By: #### C BC, BMP #### [facility] [address] [place] [address] [place] Platelets (Bld) [#/Vol] 257 10*3/uL Normal 150-450 [facility] Comment on above: Order Comment: Reaso n for Exam HAV (hallux abducto valgus), left;Metatarsalgia of right michelet Performed By: #### C BC, BMP #### [address] RBC (Bld) [#/Vol] 4.60 10*6/uL Normal 3.60-5.00 [facility] Comment on above: Order Comment: Reaso n for Exam HAV (hallux abducto valgus), left;Metatarsalgia of right michelet Performed By: #### C BC, BMP #### [facility] [address] WBC (Bld) [#/Vol] 7.9 10*3/uL Normal 3.8-11.6 [facility] Comment on above: Order Comment: Reaso n for Exam HAV (hallux abducto valgus), left;Metatarsalgia of right michelet Performed By: #### C BC, BMP #### [facility] [address] Creatinine and Glomerular fi ltration rate.predicted panel (S/P/Bld)Ordered By: Josefa Martinez on 07-25-2022 Creatinine [Mass/Vol] 1.48 mg/dL 0.44-1.03 [facility] ECG 12 lead ECGon 07-25-2022 ECG 12 lead ECG [facility] [place] [address] [place] [address] Electrocardiograph Report Signed Patient: Sylvia Bass MR#: [id number] : 1965 Acct:[id number] Age/Sex: 57 / F ADM Date: 07/25/22 Loc: Room: Type: [facility] Attending Dr: Josefa Martinez MD Ordering Provider: [...] Jan Balderrama MD 1 09/25/21 1625 Normal [facility] Eosinophils Auto (Bld) [#/Vo l]Ordered By: Josefa Martinez on 07-25-2022 Eosinophils (Bld) [#/Vol] 0.5 10*3/uL 0.0-0.45 [facility] Eosinophils/100 WBC Auto (Bl d)Ordered By: Josefa Martinez on 07-25-2022 Eosinophils/100 WBC (Bld) 6.1 % . [facility] Erythrocyte distribution wid th Auto (RBC) [Ratio]Ordered By: Josefa Martinez on 07-25-2022 Erythrocyte distribution width (RBC) [Ratio] 14.9 % 11.9-15.3 [facility] Estimated glomerular filtrat ion rate (GFR) non- AmericanOrdered By: Josefa Martinez on 07-25-2022 GFR/1.73 sq M.predicted among non-blacks MDRD (S/P/Bld) [Vol rate/Area] 36 mL/Min [facility] Hematocrit Auto (Bld) [Volum e fraction]Ordered By: Josefa Martinez on 07-25-2022 Hematocrit (Bld) [Volume fraction] 38.3 % 34.0-46.4 [facility] Hemoglobin [Mass/volume] in BloodOrdered By: Josefa Martinez on 07-25-2022 Hemoglobin (Bld) [Mass/Vol] 12.5 g/dL 11.8-15.4 [facility] Leukocytes [#/volume] correc brendan for nucleated erythrocytes in Blood by Automated counOrdered By: Josefa Martinez on 07-25-2022 WBC corrected for nucl RBC Auto (Bld) [#/Vol] 7.9 10*3/uL 3.8-11.6 [facility] Lymphocytes Auto (Bld) [#/Vo l]Ordered By: Joesfa Martinez on 07-25-2022 Lymphocytes (Bld) [#/Vol] 2.6 10*3/uL 1.00-4.8 [facility] Lymphocytes/100 WBC Auto (Bl d)Ordered By: Josefa Martinez on 07-25-2022 Lymphocytes/100 WBC (Bld) 32.8 % . [facility] MCH Auto (RBC) [Entitic mass ]Ordered By: Josefa Guzmana on 07-25-2022 MCH (RBC) [Entitic mass] 27.1 pg 24.7-34.3 [facility] MCHC Auto (RBC) [Mass/Vol]Or dered By: Josefa Eucha on 07-25-2022 MCHC (RBC) [Mass/Vol] 32.5 g/dL 32.0-35.0 [facility] MCV Auto (RBC) [Entitic vol] Ordered By: Josefa Michelle on 07-25-2022 MCV (RBC) [Entitic vol] 83.2 fL 80-100 [facility] Monocytes Auto (Bld) [#/Vol] Ordered By: Josefa Guzmana on 07-25-2022 Monocytes (Bld) [#/Vol] 1.0 10*3/uL 0.0-0.8 [facility] Monocytes/100 WBC Auto (Bld) Ordered By: Josefa Eucha on 07-25-2022 Monocytes/100 WBC (Bld) 12.5 % . [facility] Neutrophils Auto (Bld) [#/Vo l]Ordered By: Josefa Michelle on 07-25-2022 Neutrophils (Bld) [#/Vol] 3.8 10*3/uL 1.8-7.7 [facility] Neutrophils/100 WBC Auto (Bl d)Ordered By: Josefa Guzmana on 07-25-2022 Neutrophils/100 WBC (Bld) 48.2 % . [facility] No Panel InformationOrdered By: Josefa Martinez on 07-25-2022 Estimated GFR () 44 mL/Min [facility] Comment on above: GFR estimated refere nce range: According to KDOQI guidelines, <60 ml/min/1.73m2 is sufficient to diagnose a patient with chronic kidney disease. Pharmacy Creatinine Clearance (Chem N/A [facility] Nucleated erythrocytes [Pres ence] in Blood by Automated countOrdered By: Josefa Martinez on 07-25-2022 Nucleated RBC Auto Ql (Bld) 0.1 /100{WBC} 0-0.5 [facility] Platelet mean volume Auto (B ld) [Entitic vol]Ordered By: Josefa Martinez on 07-25-2022 Platelet mean volume (Bld) [Entitic vol] 8.6 fL 6.3-10.7 [facility] Platelets Auto (Bld) [#/Vol] Ordered By: Josefa Martinez on 07-25-2022 Platelets (Bld) [#/Vol] 257 10*3/uL 150-450 [facility] RBC Auto (Bld) [#/Vol]Ordere d By: Josefa Maritnez on 07-25-2022 RBC (Bld) [#/Vol] 4.60 10*6/uL 3.60-5.00 [facility] Serum or plasma anion gap de terminationOrdered By: Josefa Martinez on 07-25-2022 Anion gap [Moles/Vol] 15.3 mmol/L 6.0-15.0 [facility] Serum or plasma calcium enma urement (mass/volume)Ordered By: Josefa Martinez on 07-25-2022 Calcium [Mass/Vol] 9.2 mg/dL 8.2-10.2 [facility] Serum or plasma chloride horace surement (moles/volume)Ordered By: Josefa Martinez on 07-25-2022 Chloride [Moles/Vol] 98 mmol/L 95-114 [facility] Serum or plasma glucose enma urement (mass/volume)Ordered By: Josefa Martinez on 07-25-2022 Glucose [Mass/Vol] 95 mg/dL 70-100 [facility] Comment on above: ADA recommended refe rence rangeRandom Glucose Reference Range is dependent on time and content of last meal. Glucose of more than 200 mg/dL in a nonstressed, ambulatory subject supports the diagnosis of Diabetes Mellitus. Serum or plasma potassium me asurement (moles/volume)Ordered By: Josefa Martinez on 07-25-2022 Potassium [Moles/Vol] 3.9 mmol/L 3.5-5.1 [facility] Serum or plasma sodium measu rement (moles/volume)Ordered By: Josefa Martinez on 07-25-2022 Sodium [Moles/Vol] 133 mmol/L 136-146 [facility] Serum or plasma total carbon dioxide measurement (moles/volume)Ordered By: Josefa Martinez on 07-25-2022 CO2 [Moles/Vol] 23.6 mmol/L 22.0-30.0 [facility] Serum or plasma urea nitroge n measurement (mass/volume)Ordered By: Josefa Martinez on 07-25-2022 Urea nitrogen [Mass/Vol] 29 mg/dL 04-20 [facility] WBC Auto (Bld) [#/Vol]Ordere d By: Josefa Martinez on 07-25-2022 WBC (Bld) [#/Vol] 7.9 10*3/uL 3.8-11.6 [facility] CBC with Auto Differentialon 06-11-2022 Absolute Eos # 0.[address] [facility] S [facility] Absolute Immature Granulocyte 0.00 [facility] Absolute Lymph # 4.52 High [facility] Absolute [place] # 0.95 [facility] Atypical Lymphocytes 2 % [facility] Atypical Lymphocytes Absolute 0.21 k/uL [facility] Basophils (Bld) [#/Vol] 0.11 10*3/uL [facility] Basophils/100 WBC (Bld) 1 % 0 - 2 % [facility] Eosinophils/100 WBC (Bld) 1 % 1 - 4 % [facility] Hematocrit (Bld) [Volume fraction] 35.9 % Low 36.3 - 47.1 % [facility] Hemoglobin (Bld) [Mass/Vol] 11.4 g/dL Low 11.9 - 15.1 g/dL [facility] Immature granulocytes/100 WBC (Bld) 0 % 0 [facility] Interpretation and review of laboratory results Abnormal [facility] Lymphocytes/100 WBC (Bld) 43 % 24 - 43 % [facility] MCH (RBC) [Entitic mass] 27.2 pg 25.2 - 33.5 pg [facility] MCHC (RBC) [Mass/Vol] 31.8 g/dL 28.4 - 34.8 g/dL [facility] MCV (RBC) [Entitic vol] 85.7 fL 82.6 - 102.9 fL [facility] Monocytes/100 WBC (Bld) 9 % 3 - 12 % B [facility] Morphology William (Bld) [Interp] Platelet scan shows Normal Platelets [facility] NRBC Automated 0.0 0.0 per 100 WBC [facility] Platelet distribution width (Bld) [Ratio] 13.4 % 11.8 - 14.4 % [facility] Platelet mean volume (Bld) [Entitic vol] 10.3 fL 8.1 - 13.5 fL [facility] Platelets (Bld) [#/Vol] 335 10*3/uL [facility] RBC (Bld) [#/Vol] 4.19 10*6/uL 3.95 - 5.1 1 m/uL [facility] Segmented neutrophils/100 WBC (Bld) 44 % 36 - 65 % [facility] Segs Absolute 4.60 [facility] WBC (Bld) [#/Vol] 10.5 10*3/uL [facility] Creatinineon 06-11-2022 Creatinine [Mass/Vol] 1.82 mg/dL High 0.50 - 0.90 mg/dL [facility] GFR/1.73 sq M.predicted MDRD (S/P/Bld) [Vol rate/Area] 32 mL/min/{1.73_m2} Low - PINF [facility] Comment on above: Effective Apr 30, [...] Interpretation and review of laboratory results Abnormal [facility] Hepatic Function Panelon Albumin [Mass/Vol] 4.3 g/dL 3.5 - 5.2 g/dL [facility] Albumin/Globulin [Mass ratio] 1.5 {ratio} 1.0 - 2.5 [facility] ALP (Bld) [Catalytic activity/Vol] 91 U/L 35 - 104 U/L [facility] ALT [Catalytic activity/Vol] 9 U/L 5 - 33 U/L [facility] AST [Catalytic activity/Vol] 18 U/L NINF - 32 U/L [facility] Bilirubin [Mass/Vol] mg/dL Low 0.3 - 1 .2 mg/dL [facility] Bilirubin, Indirect Can not be calculated 0.00 - 1.00 mg/dL [facility] Bilirubin.indirect [Mass/Vol] mg/dL NINF - 0.31 mg/dL [facility] Interpretation and review of laboratory results Abnormal [facility] Protein [Mass/Vol] 7.2 g/dL 6.4 - 8.3 g/dL [facility] Sedimentation Rateon 022 Sed Rate 15 [facility] CBC with Auto Differentialon 04-11-2022 Absolute Eos # 0.49 High [place] [facility] Absolute Immature Granulocyte 0.04 [facility] Absolute Lymph # 2.85 [facility] Absolute [place] # 0.95 [facility] Basophils (Bld) [#/Vol] 0.07 10*3/uL [facility] Basophils/100 WBC (Bld) 1 % 0 - 2 % B [facility] Eosinophils/100 WBC (Bld) 5 % High 1 - 4 % [facility] Hematocrit (Bld) [Volume fraction] 38.5 % 36.3 - 47.1 % [facility] Hemoglobin (Bld) [Mass/Vol] 12.4 g/dL 11.9 - 15.1 g/dL [facility] Immature granulocytes/100 WBC (Bld) 0 % 0 [facility] Interpretation and review of laboratory results Abnormal [facility] Lymphocytes/100 WBC (Bld) 26 % 24 - 43 % [facility] MCH (RBC) [Entitic mass] 27.6 pg 25.2 - 33.5 pg [facility] MCHC (RBC) [Mass/Vol] 32.2 g/dL 28.4 - 34.8 g/dL [facility] MCV (RBC) [Entitic vol] 85.7 fL 82.6 - 102.9 fL [facility] Monocytes/100 WBC (Bld) 9 % 3 - 12 % B [facility] NRBC Automated 0.0 0.0 per 100 WBC [facility] Platelet distribution width (Bld) [Ratio] 12.3 % 11.8 - 14.4 % [facility] Platelet mean volume (Bld) [Entitic vol] 11.1 fL 8.1 - 13.5 fL [facility] Platelets (Bld) [#/Vol] 297 10*3/uL [facility] RBC (Bld) [#/Vol] 4.49 10*6/uL 3.95 - 5.1 1 m/uL [facility] Segmented neutrophils/100 WBC (Bld) 59 % 36 - 65 % [facility] Segs Absolute 6.41 [facility] WBC (Bld) [#/Vol] 10.8 10*3/uL [facility] Creatinineon 04-11-2022 Creatinine [Mass/Vol] 2.38 mg/dL High 0.5 - 0.9 mg/dL [facility] GFR 25 mL/min Low 60 - PI NF mL/min [facility] GFR Non- 21 mL/min Low 60 - PINF mL/min [facility] Interpretation and review of laboratory results Abnormal [facility] Hepatic Function Panelon Albumin [Mass/Vol] 4.5 g/dL 3.5 - 5.2 g/dL [facility] Albumin/Globulin [Mass ratio] 1.5 {ratio} 1 - 2.5 [facility] ALP (Bld) [Catalytic activity/Vol] 106 U/L High 35 - 104 U/L [facility] ALT [Catalytic activity/Vol] 16 U/L 5 - 33 U/L [facility] AST [Catalytic activity/Vol] 18 U/L NINF - 32 U/L [facility] Bilirubin [Mass/Vol] 0.2 mg/dL Low 0.3 - 1 .2 mg/dL [facility] Bilirubin, Indirect Can not be calculated 0 - 1 mg/dL [facility] Bilirubin.indirect [Mass/Vol] mg/dL NINF - 0.31 mg/dL [facility] Free PSA/Total PSA [Mass fraction] 7.5 g/dL 6.4 - 8.3 g/dL [facility] Interpretation and review of laboratory results Abnormal [facility] Laboratory - Chemistry and C hemistry - challengeon 04-11-2022 GFR/1.73 sq M.predicted MDRD (S/P/Bld) [Vol rate/Area] [facility] Comment on above: Average GFR for 50-5 9 years old: 93 mL/min/1.73sq m Chronic Kidney Disease: <60 mL/min/1.73sq m Kidney failure: <15 mL/min/1.73sq m eGFR calculated using average adult body mass. Additional eGFR calculator available at: http://[email or web address]/multiple_crcl_2012.htm Stage 1: Some kidney damage normal GFR Stage 2: Mild kidney damage GFR 60-89 Stage 3: Moderate kidney damage GFR 30-59 Stage 4: Severe kidney damage GFR 15-29 Stage 5: Severe kidney damage GFR <15 ESRD - chronic treatment by dialysis or transplant Sedimentation Rateon 022 Sed Rate 12 [facility] CBC with Auto Differentialon 02-15-2022 Absolute Eos # 0.17 [facility] Absolute Immature Granulocyte [facility] Absolute Lymph # 2.35 [facility] Absolute [place] # 0.82 [facility] Basophils (Bld) [#/Vol] 0.04 10*3/uL [facility] Basophils/100 WBC (Bld) 1 % 0 - 2 % B [facility] Eosinophils/100 WBC (Bld) 3 % 1 - 4 % [facility] Hematocrit (Bld) [Volume fraction] 36.8 % 36.3 - 47.1 % [facility] Hemoglobin (Bld) [Mass/Vol] 12.1 g/dL 11.9 - 15.1 g/dL [facility] Immature granulocytes/100 WBC (Bld) 0 % 0 [facility] Interpretation and review of laboratory results Abnormal [facility] Lymphocytes/100 WBC (Bld) 43 % 24 - 43 % [facility] MCH (RBC) [Entitic mass] 28.5 pg 25.2 - 33.5 pg [facility] MCHC (RBC) [Mass/Vol] 32.9 g/dL 28.4 - 34.8 g/dL [facility] MCV (RBC) [Entitic vol] 86.8 fL 82.6 - 102.9 fL [facility] Monocytes/100 WBC (Bld) 15 % High 3 - 12 % B ON [facility] NRBC Automated 0.0 0.0 per 100 WBC [facility] Platelet distribution width (Bld) [Ratio] 13.5 % 11.8 - 14.4 % [facility] Platelet mean volume (Bld) [Entitic vol] 10.0 fL 8.1 - 13.5 fL [facility] Platelets (Bld) [#/Vol] 304 10*3/uL [facility] RBC (Bld) [#/Vol] 4.24 10*6/uL 3.95 - 5.1 1 m/uL [facility] Segmented neutrophils/100 WBC (Bld) 38 % 36 - 65 % [facility] Segs Absolute 2.10 [facility] WBC (Bld) [#/Vol] 5.5 10*3/uL [facility] Creatinineon 02-15-2022 Creatinine [Mass/Vol] 1.2 mg/dL High 0.5 - 0.9 mg/dL [facility] GFR 56 mL/min Low 60 - PI NF mL/min [facility] GFR Non- 46 mL/min Low 60 - PINF mL/min [facility] Hepatic Function Panelon Albumin [Mass/Vol] 4.5 g/dL 3.5 - 5.2 g/dL [facility] Albumin/Globulin [Mass ratio] 1.5 {ratio} 1 - 2.5 [facility] ALP (Bld) [Catalytic activity/Vol] 96 U/L 35 - 104 U/L [facility] ALT [Catalytic activity/Vol] 15 U/L 5 - 33 U/L [facility] AST [Catalytic activity/Vol] 25 U/L NINF - 32 U/L [facility] Bilirubin [Mass/Vol] 0.19 mg/dL Low 0.3 - 1 .2 mg/dL [facility] Bilirubin, Indirect Can not be calculated 0 - 1 mg/dL [facility] Bilirubin.indirect [Mass/Vol] mg/dL NINF - 0.31 mg/dL [facility] Free PSA/Total PSA [Mass fraction] 7.6 g/dL 6.4 - 8.3 g/dL [facility] Laboratory - Chemistry and C hemistry - challengeon 02-15-2022 GFR/1.73 sq M.predicted MDRD (S/P/Bld) [Vol rate/Area] [facility] Comment on above: Average GFR for 50-5 9 years old: 93 mL/min/1.73sq m Chronic Kidney Disease: <60 mL/min/1.73sq m Kidney failure: <15 mL/min/1.73sq m eGFR calculated using average adult body mass. Additional eGFR calculator available at: http://www.[employer] - Private Location App/multiple_crcl_2011.htm Stage 1: Some kidney damage normal GFR Stage 2: Mild kidney damage GFR 60-89 Stage 3: Moderate kidney damage GFR 30-59 Stage 4: Severe kidney damage GFR 15-29 Stage 5: Severe kidney damage GFR <15 ESRD - chronic treatment by dialysis or transplant No Panel Informationon 02-15 Interpretation and review of laboratory results Abnormal [facility] Sedimentation Rateon 022 Sed Rate 23 [facility] Patient Educationon 02-10-20 22 Patient Education [...] Take ove (more content not included)... Normal [facility] Reminderson 02-09-2022 Reminders - From: Lynda Boland To: SANDOR Jeo; Sent: 02/09/2022 10:23:42 EDT Show up: 12/27/2022 10:23:00 EDT Subject: Recall for Renal US Due Date/Time: 01/26/2023 10:23:00 EDT Reminder/Recall Pleas call and schedule Patient for her SUSAN prior to 02/04/23 follow up. Normal [facility] Urology Office/Clinic Noteon 02-09-2022 Urology Office/Clinic [...] JUNIOR JIMENEZ, REYES Connor In [address] [place] [address]- Additional Instructions: w/ renal US Patient Education [...] Comments SARS-CoV-2 (COVID-19) Ad26 vaccine 11/15/2020 Recorded 10X10 Room and 10X10 Room Lab Results Ambulatory Point of Care Results Bilirubin Urine Dipstick: Negative (02/09/22 09:55:00) Blood Urine Dipstick: Negative (02/09/22 09:55:00) Glucose Urine Dipstick: Negative (02/09/22 09:55:00) Ketones Urine Dipstick: Negative (02/09/22 09:55:00) Leukocytes Urine Dipstick: (more content not included)... Normal [facility] Comment on above: Result Comment: Elec tronically Signed By: Frank JOE MD\.br\Date and Time Signed: 02/09/22 10:18 EDT\.br\Electronically Co-Signed By: Kayli Garrido.br\Date and Time Co-Signed: 02/09/22 10:16 EDT C3 Complementon 11-27-2021 Complement C3 132 mg/dL 90 - 180 mg/dL [facility] C4 Complementon 11-27-2021 Complement C4 34 mg/dL 10 - 40 mg/dL [facility] CT CHEST HIGH RESOLUTIONon 0 11-27-2021 Radiology Study observation (narrative) Kaitlin perales Work Phone: 1. Mild basilar honeycombing and mild associated bronchiectasis, consistent with UIP pattern. 2. Main pulmonary artery enlargement raise the possibility of pulmonary hypertension. 3. Calcified atheromatous plaque and coronary calcification. [facility] EXAMINATION: CT IMAGES OF THE [...] favoring cysts. Soft Tissues/Bones: No significant findings. [facility] Obinna Travis MD - 11/27/2021 [...] 3. Calcified atheromatous plaque and coronary calcification. [facility] Work Phone: CT CHEST HIGH RESOLUTIONOrde red By: Obinna Travis on 11-27-2021 [facility] Work Phone: No Panel Informationon 11-27 [facility] Urinalysis with Microscopico n 11-27-2021 - [facility] Bacteria, UA 2+ Abnormal None [facility] Bilirubin Urine Negative NEGATIVE [facility] lth Color, UA Yellow Yellow [facility] Epithelial Cells UA 0 TO 2 [facility] Glucose, Ur Negative NEGATIVE [facility] Interpretation and review of laboratory results Abnormal [facility] Ketones Ql (U) Negative NEGATIVE [facility] Leukocyte esterase Test strip Ql (U) SMALL Abnormal NEGATIVE [facility] Nitrite, Urine Negative NEGATIVE [facility] pH, UA 5.5 [facility] Protein, UA Negative NEGATIVE [facility] RBC, UA None [facility] Specific [place], UA 1.020 [facility] Turbidity UA Clear Clear [facility] Urine Hgb Negative NEGATIVE [facility] Urobilinogen, Urine Normal Normal [facility] WBC, UA 5 TO 10 [facility] CBC with Auto Differentialon 10-03-2021 Absolute Eos # 0.39 [facility] Absolute Immature Granulocyte 0.04 [facility] Absolute Lymph # 2.70 [facility] alth Absolute [place] # 0.91 [facility] lth Basophils (Bld) [#/Vol] 0.08 10*3/uL [facility] Basophils/100 WBC (Bld) 1 % 0 - 2 % [facility] Eosinophils/100 WBC (Bld) 4 % 1 - 4 % [facility] Hematocrit (Bld) [Volume fraction] 35.9 % Low 36.3 - 47.1 % [facility] Hemoglobin.gastrointest inal spec 1 Ql (Stl) 11.4 g/dL Low 11.9 - 15.1 g/dL [facility] Immature granulocytes/100 WBC (Bld) 0 % 0 [facility] Interpretation and review of laboratory results Abnormal [facility] Lymphocytes/100 WBC (Bld) 27 % 24 - 43 % [facility] MCH (RBC) [Entitic mass] 28.2 pg 25.2 - 33.5 pg [facility] MCHC (RBC) [Mass/Vol] 31.8 g/dL 28.4 - 34.8 g/dL [facility] MCV (RBC) [Entitic vol] 88.9 fL 82.6 - 102.9 fL [facility] Monocytes/100 WBC (Bld) 9 % 3 - 12 % [facility] NRBC Automated 0.0 0.0 per 100 WBC [facility] Platelet distribution width (Bld) [Ratio] 14.7 % High 11.8 - 14.4 % [facility] Platelet mean volume (Bld) [Entitic vol] 10.5 fL 8.1 - 13.5 fL [facility] Platelets (Bld) [#/Vol] 327 10*3/uL [facility] RBC (Bld) [#/Vol] 4.04 10*6/uL 3.95 - 5.1 1 m/uL [facility] Segmented neutrophils/100 WBC (Bld) 59 % 36 - 65 % [facility] Segs Absolute 6.03 [facility] W[facility] (Bld) [#/Vol] 10.2 10*3/uL [facility] Creatinineon 10-03-2021 Creatinine [Mass/Vol] 1.24 mg/dL High 0.50 - 0.90 mg/dL [facility] GFR 54 mL/min Low >60 [facility] GFR Non- 45 mL/min Low >60 [facility] Interpretation and review of laboratory results Abnormal [facility] Hepatic Function Panelon Albumin [Mass/Vol] 4.2 g/dL 3.5 - 5.2 g/dL [facility] Albumin/Globulin [Mass ratio] 1.4 {ratio} [facility] ALP (Bld) [Catalytic activity/Vol] 113 U/L High 35 - 104 U/L [facility] ALT [Catalytic activity/Vol] 11 U/L 5 - 33 U/L [facility] AST [Catalytic activity/Vol] 22 U/L <32 [facility] Bilirubin [Mass/Vol] mg/dL Low 0.3 - 1 .2 mg/dL [facility] Bilirubin, Indirect Can not be calculated 0.00 - 1.00 mg/dL [facility] Bilirubin.indirect [Mass/Vol] mg/dL <0.31 mg/dL [facility] Free PSA/Total PSA [Mass fraction] 7.1 g/dL 6.4 - 8.3 g/dL [facility] Interpretation and review of laboratory results Abnormal [facility] Laboratory - Chemistry and C hemistry - challengeon 10-03-2021 GFR/1.73 sq M.predicted MDRD (S/P/Bld) [Vol rate/Area] [facility] Comment on above: Average GFR for 50-5 9 years old: 93 mL/min/1.73sq m Chronic Kidney Disease: <60 mL/min/1.73sq m Kidney failure: <15 mL/min/1.73sq m eGFR calculated using average adult body mass. Additional eGFR calculator available at: http://www.[employer]/multiple_crcl_2012.htm Stage 1: Some kidney damage normal GFR Stage 2: Mild kidney damage GFR 60-89 Stage 3: Moderate kidney damage GFR 30-59 Stage 4: Severe kidney damage GFR 15-29 Stage 5: Severe kidney damage GFR <15 ESRD - chronic treatment by dialysis or transplant Sedimentation Rateon 022 Sed Rate 18 mm 0 - 30 mm [facility] CBC Auto DifferentialOrdered By: Vinicius Bullock on 05-30-2021 Absolute Eos # 0.17 [facility] Work Phone: Absolute Immature Granulocyte 0.05 [facility] Work Phone: Absolute Lymph # 2.[address] [facility] Work Phone: Absolute [place] # 0.75 [facility] Work Phone: Basophils (Bld) [#/Vol] 0.06 10*3/uL [facility] Work Phone: Basophils/100 WBC (Bld) 1 % 0 - 2 % M [facility] Work Phone: Differential Type NOT REPORTED [facility] Phone: Eosinophils/100 WBC (Bld) 2 % 1 - 4 % [facility] Work Phone: Hematocrit (Bld) [Volume fraction] 37.1 % 36.3 - 47.1 % [facility] Work Phone: Hemoglobin.gastrointest inal spec 1 Ql (Stl) 12.0 g/dL 11.9 - 15.1 g/dL [facility] Phone: Immature granulocytes/100 WBC (Bld) 1 % High 0 [facility] Phone: Interpretation and review of laboratory results Abnormal [facility] Phone: Lymphocytes/100 WBC (Bld) 22 % Low 24 - 43 % [facility] Phone: MCH (RBC) [Entitic mass] 27.8 pg 25.2 - 33.5 pg [facility] Phone: MCHC (RBC) [Mass/Vol] 32.3 g/dL 28.4 - 34.8 g/dL [facility] Phone: MCV (RBC) [Entitic vol] 86.1 fL 82.6 - 102.9 fL [facility] Phone: Monocytes/100 WBC (Bld) 7 % 3 - 12 % [facility] Work Phone: NRBC Automated 0.0 0.0 per 100 WBC [facility] Phone: Platelet distribution width (Bld) [Ratio] 13.9 % 11.8 - 14.4 % [facility] Phone: Platelet Estimate NOT REPORTED [facility] Phone: Platelet mean volume (Bld) [Entitic vol] 10.3 fL 8.1 - 13.5 fL [facility] Phone: Platelets (Bld) [#/Vol] 316 10*3/uL [facility] Phone: RBC (Bld) [#/Vol] 4.31 10*6/uL 3.95 - 5.1 1 m/uL [facility] Phone: RBC (Bld) [#/Vol] NOT REPORTED [facility] Phone: Segmented neutrophils/100 WBC (Bld) 67 % High 36 - 65 % [facility] Phone: Segs Absolute 7.58 [employer] Work Phone: WBC (Bld) [#/Vol] 11.0 10*3/uL [facility] Phone: WBC (Bld) [#/Vol] NOT REPORTED [facility] Phone: [facility] Phone: Creatinine, SerumOrdered By: Vinicius Bullock on 05-30-2021 Creatinine [Mass/Vol] 1.22 mg/dL High 0.50 - 0.90 mg/dL [facility] Phone: GFR 55 mL/min Low >60 [employer] Phone: GFR Non- 45 mL/min Low >60 [facility] Phone: Interpretation and review of laboratory results Abnormal [facility] Phone: [facility] Phone: Hepatic Function PanelOrdere d By: Vinicius Bullock on 05-30-2021 Albumin [Mass/Vol] 4.4 g/dL 3.5 - 5.2 g/dL [facility] Phone: Albumin/Globulin [Mass ratio] 1.4 {ratio} [facility] Phone: ALP (Bld) [Catalytic activity/Vol] 98 U/L 35 - 104 U/L [facility] Phone: ALT [Catalytic activity/Vol] 15 U/L 5 - 33 U/L [facility] Phone: AST [Catalytic activity/Vol] 24 U/L <32 [facility] Phone: Bilirubin [Mass/Vol] mg/dL Low 0.3 - 1 .2 mg/dL [facility] Phone: Bilirubin, Indirect CANNOT BE CALCULATED 0.00 - 1.00 mg/dL [facility] Phone: Bilirubin.indirect [Mass/Vol] mg/dL <0.31 mg/dL [facility] Phone: Free PSA/Total PSA [Mass fraction] 7.5 g/dL 6.4 - 8.3 g/dL [facility] Phone: Globulin NOT REPORTED 1.5 - 3.8 g/dL [facility] Phone: Interpretation and review of laboratory results Abnormal [facility] Phone: [facility] Phone: Laboratory - Chemistry and C hemistry - challengeOrdered By: Vinicius Bullock on 05-30-2021 GFR/1.73 sq M.predicted MDRD (S/P/Bld) [Vol rate/Area] [facility] Phone: Comment on above: Average GFR for 50-5 9 years old: 93 mL/min/1.73sq m Chronic Kidney Disease: <60 mL/min/1.73sq m Kidney failure: <15 mL/min/1.73sq m eGFR calculated using average adult body mass. Additional eGFR calculator available at: http://www.[employer] - Private Location App/multiple_crcl_2011.htm Stage 1: Some kidney damage normal GFR Stage 2: Mild kidney damage GFR 60-89 Stage 3: Moderate kidney damage GFR 30-59 Stage 4: Severe kidney damage GFR 15-29 Stage 5: Severe kidney damage GFR <15 ESRD - chronic treatment by dialysis or transplant Sedimentation RateOrdered By : Vinicius Bullock on 05-30-2021 Interpretation and review of laboratory results Abnormal [facility] Phone: Sed Rate 25 mm High 0 - 20 mm [facility] Work Phone: [facility] Work Phone: CBC Auto DifferentialOrdered By: Vinicius Bullock on 04-04-2021 Absolute Eos # 0.09 [employer] [facility] Work Phone: Absolute Immature Granulocyte 0.04 [facility] Work Phone: Absolute Lymph # 2.65 [employer] [facility] Work Phone: Absolute [place] # 0.80 [employer] [facility] Work Phone: Basophils (Bld) [#/Vol] 0.08 10*3/uL [facility] Work Phone: Basophils/100 WBC (Bld) 1 % 0 - 2 % [facility] Phone: Differential Type NOT REPORTED [facility] Phone: Eosinophils/100 WBC (Bld) 1 % 1 - 4 % [facility] Phone: Hematocrit (Bld) [Volume fraction] 40.0 % 36.3 - 47.1 % [facility] Phone: Hemoglobin.gastrointest inal spec 1 Ql (Stl) 12.9 g/dL 11.9 - 15.1 g/dL [facility] Phone: Immature granulocytes/100 WBC (Bld) 0 % 0 [facility] Work Phone: Lymphocytes/100 WBC (Bld) 25 % 24 - 43 % [facility] Phone: MCH (RBC) [Entitic mass] 27.4 pg 25.2 - 33.5 pg [facility] Phone: MCHC (RBC) [Mass/Vol] 32.3 g/dL 28.4 - 34.8 g/dL [facility] Phone: MCV (RBC) [Entitic vol] 84.9 fL 82.6 - 102.9 fL [facility] Phone: Monocytes/100 WBC (Bld) 8 % 3 - 12 % [facility] Work Phone: NRBC Automated 0.0 0.0 per 100 WBC [facility] Phone: Platelet distribution width (Bld) [Ratio] 14.2 % 11.8 - 14.4 % [facility] Phone: Platelet Estimate NOT REPORTED [facility] Phone: Platelet mean volume (Bld) [Entitic vol] 10.1 fL 8.1 - 13.5 fL [facility] Phone: Platelets (Bld) [#/Vol] 314 10*3/uL [facility] Phone: RBC (Bld) [#/Vol] 4.71 10*6/uL 3.95 - 5.1 1 m/uL [facility] Phone: RBC (Bld) [#/Vol] NOT REPORTED [facility] Phone: Segmented neutrophils/100 WBC (Bld) 65 % 36 - 65 % [facility] Phone: Segs Absolute 6.90 [employer] Work Phone: WBC (Bld) [#/Vol] 10.6 10*3/uL [facility] Phone: WBC (Bld) [#/Vol] NOT REPORTED [facility] Phone: [facility] Phone: Creatinine, SerumOrdered By: Vinicius Bullock on 04-04-2021 Creatinine [Mass/Vol] 1.47 mg/dL High 0.50 - 0.90 mg/dL [facility] Phone: GFR 45 mL/min Low >60 [employer] Phone: GFR Non- 37 mL/min Low >60 [facility] Phone: Interpretation and review of laboratory results Abnormal [facility] Phone: [facility] Phone: Hepatic Function PanelOrdere d By: Vinicius Bullock on 04-04-2021 Albumin [Mass/Vol] 4.2 g/dL 3.5 - 5.2 g/dL [facility] Phone: Albumin/Globulin [Mass ratio] 1.4 {ratio} [facility] Phone: ALP (Bld) [Catalytic activity/Vol] 95 U/L 35 - 104 U/L [facility] Phone: ALT [Catalytic activity/Vol] 14 U/L 5 - 33 U/L [facility] Phone: AST [Catalytic activity/Vol] 24 U/L <32 [facility] Phone: Bilirubin [Mass/Vol] mg/dL Low 0.3 - 1 .2 mg/dL [facility] Phone: Bilirubin, Indirect CANNOT BE CALCULATED 0.00 - 1.00 mg/dL [facility] Phone: Bilirubin.indirect [Mass/Vol] mg/dL <0.31 mg/dL [facility] Phone: Free PSA/Total PSA [Mass fraction] 7.2 g/dL 6.4 - 8.3 g/dL [facility] Phone: Globulin NOT REPORTED 1.5 - 3.8 g/dL [facility] Phone: Interpretation and review of laboratory results Abnormal [facility] Phone: [facility] Phone: Laboratory - Chemistry and C hemistry - challengeOrdered By: Vinicius Bullock on 04-04-2021 GFR/1.73 sq M.predicted MDRD (S/P/Bld) [Vol rate/Area] [facility] Phone: Comment on above: Average GFR for 50-5 9 years old: 93 mL/min/1.73sq m Chronic Kidney Disease: <60 mL/min/1.73sq m Kidney failure: <15 mL/min/1.73sq m eGFR calculated using average adult body mass. Additional eGFR calculator available at: http://www.[employer]/multiple_crcl_2012.htm Stage 1: Some kidney damage normal GFR Stage 2: Mild kidney damage GFR 60-89 Stage 3: Moderate kidney damage GFR 30-59 Stage 4: Severe kidney damage GFR 15-29 Stage 5: Severe kidney damage GFR <15 ESRD - chronic treatment by dialysis or transplant Sedimentation RateOrdered By : Vinicius Bullock on 04-04-2021 Sed Rate 13 mm 0 - 20 mm [facility] Phone: [facility] Phone: XR ABDOMEN (KUB) (SINGLE AP VIEW)Ordered By: Frank Joe on 02-21-2021 Unremarkable abdominal radiographs without acute abnormality. [facility] Phone: EXAMINATION: ONE SUPINE XRAY VIEW(S) OF THE ABDOMEN 02/21/2021 7:33 am COMPARISON: Abdominal radiographs performed 11/10/2019. HISTORY: ORDERING SYSTEM PROVIDED HISTORY: Urinary urgency FINDINGS: There is a nonobstructive bowel gas pattern. There is no intraperitoneal free air. There are no suspicious calcifications. Stable phleboliths are seen in the pelvis. There is no acute osseous abnormality. The surrounding soft tissues are unremarkable. [facility] Phone: Hector, Mhpn Incoming Radiant Results From [employer] - 02/21/2021 8:40 AM EDT EXAMINATION: ONE [...] IMPRESSION: Unremarkable abdominal radiographs without acute abnormality. [facility] Work Phone: [employer] Phone: CBC Auto DifferentialOrdered By: Vinicius Bullock on 02-07-2021 Absolute Eos # 0.41 [employer] [facility] Work Phone: Absolute Immature Granulocyte 0.05 [facility] Work Phone: Absolute Lymph # 2.39 [employer] [facility] Work Phone: Absolute [place] # 0.91 [facility] Work Phone: Basophils (Bld) [#/Vol] 0.08 10*3/uL [facility] Phone: Basophils/100 WBC (Bld) 1 % 0 - 2 % M [employer] Phone: Differential Type NOT REPORTED [facility] Phone: Eosinophils/100 WBC (Bld) 4 % 1 - 4 % [facility] Phone: Hematocrit (Bld) [Volume fraction] 36.4 % 36.3 - 47.1 % [facility] Phone: Hemoglobin.gastrointest inal spec 1 Ql (Stl) 11.2 g/dL Low 11.9 - 15.1 g/dL [facility] Phone: Immature granulocytes/100 WBC (Bld) 1 % High 0 [facility] Phone: Interpretation and review of laboratory results Abnormal [facility] Phone: Lymphocytes/100 WBC (Bld) 26 % 24 - 43 % [facility] Phone: MCH (RBC) [Entitic mass] 27.0 pg 25.2 - 33.5 pg [facility] Phone: MCHC (RBC) [Mass/Vol] 30.8 g/dL 28.4 - 34.8 g/dL [facility] Phone: MCV (RBC) [Entitic vol] 87.7 fL 82.6 - 102.9 fL [facility] Phone: Monocytes/100 WBC (Bld) 10 % 3 - 12 % [facility] Phone: NRBC Automated 0.0 0.0 per 100 WBC [facility] Phone: Platelet distribution width (Bld) [Ratio] 14.5 % High 11.8 - 14.4 % [facility] Phone: Platelet Estimate NOT REPORTED [facility] Phone: Platelet mean volume (Bld) [Entitic vol] 10.0 fL 8.1 - 13.5 fL [facility] Phone: Platelets (Bld) [#/Vol] 390 10*3/uL [facility] Phone: RBC (Bld) [#/Vol] 4.15 10*6/uL 3.95 - 5.1 1 m/uL [facility] Phone: RBC (Bld) [#/Vol] NOT REPORTED [facility] Phone: Segmented neutrophils/100 WBC (Bld) 58 % 36 - 65 % [employer] Phone: Segs Absolute 5.47 [employer] Work Phone: WBC (Bld) [#/Vol] 9.3 10*3/uL [facility] Phone: WBC (Bld) [#/Vol] NOT REPORTED [facility] Phone: [facility] Phone: Creatinine, SerumOrdered By: Vinicius Bullock on 02-07-2021 Creatinine [Mass/Vol] 1.25 mg/dL High 0.50 - 0.90 mg/dL [facility] Phone: GFR 54 mL/min Low >60 [employer] Phone: GFR Non- 44 mL/min Low >60 [facility] Phone: Interpretation and review of laboratory results Abnormal [facility] Phone: [facility] Phone: Hepatic Function PanelOrdere d By: Vinicuis Bullock on 02-07-2021 Albumin [Mass/Vol] 4 g/dL 3.5 - 5.2 g/dL [facility] Phone: Albumin/Globulin [Mass ratio] 1.1 {ratio} [facility] Phone: ALP (Bld) [Catalytic activity/Vol] 95 U/L 35 - 104 U/L [facility] Phone: ALT [Catalytic activity/Vol] 13 U/L 5 - 33 U/L [facility] Phone: AST [Catalytic activity/Vol] 22 U/L <32 [facility] Phone: Bilirubin [Mass/Vol] mg/dL Low 0.3 - 1 .2 mg/dL [facility] Phone: Bilirubin, Indirect CANNOT BE CALCULATED 0.00 - 1.00 mg/dL [facility] Phone: Bilirubin.indirect [Mass/Vol] mg/dL <0.31 mg/dL [facility] Phone: Free PSA/Total PSA [Mass fraction] 7.5 g/dL 6.4 - 8.3 g/dL [facility] Phone: Globulin NOT REPORTED 1.5 - 3.8 g/dL [facility] Phone: Interpretation and review of laboratory results Abnormal [employer] Phone: [facility] Work Phone: Laboratory - Chemistry and C hemistry - challengeOrdered By: Vinicius Bullock on 02-07-2021 GFR/1.73 sq M.predicted MDRD (S/P/Bld) [Vol rate/Area] [facility] Phone: Comment on above: Average GFR for 50-5 9 years old: 93 mL/min/1.73sq m Chronic Kidney Disease: <60 mL/min/1.73sq m Kidney failure: <15 mL/min/1.73sq m eGFR calculated using average adult body mass. Additional eGFR calculator available at: http://www.[employer]/multiple_crcl_2012.htm Stage 1: Some kidney damage normal GFR Stage 2: Mild kidney damage GFR 60-89 Stage 3: Moderate kidney damage GFR 30-59 Stage 4: Severe kidney damage GFR 15-29 Stage 5: Severe kidney damage GFR <15 ESRD - chronic treatment by dialysis or transplant Sedimentation RateOrdered By : Vinicius Bullock on 02-07-2021 Interpretation and review of laboratory results Abnormal [facility] Work Phone: Sed Rate 62 mm High 0 - 20 mm [facility] Work Phone: [facility] Work Phone: CBC Auto DifferentialOrdered By: Vinicius Bullock on 12-13-2020 Absolute Eos # 0.30 [employer] [facility] Work Phone: Absolute Immature Granulocyte 0.08 [facility] Work Phone: Absolute Lymph # 2.93 [employer] [facility] Work Phone: Absolute [place] # 1.04 [employer] [facility] Work Phone: Basophils (Bld) [#/Vol] 0.08 10*3/uL [facility] Work Phone: Basophils/100 WBC (Bld) 1 % 0 - 2 % [facility] [employer] Work Phone: Differential Type NOT REPORTED [employer] Phone: Eosinophils/100 WBC (Bld) 2 % 1 - 4 % [facility] Phone: Hematocrit (Bld) [Volume fraction] 37.6 % 36.3 - 47.1 % [facility] Work Phone: Hemoglobin.gastrointest inal spec 1 Ql (Stl) 12.0 g/dL 11.9 - 15.1 g/dL [employer] Phone: Immature granulocytes/100 WBC (Bld) 1 % High 0 [employer] Phone: Interpretation and review of laboratory results Abnormal [employer] Phone: Lymphocytes/100 WBC (Bld) 21 % Low 24 - 43 % [employer] Phone: MCH (RBC) [Entitic mass] 27.8 pg 25.2 - 33.5 pg [employer] Phone: MCHC (RBC) [Mass/Vol] 31.9 g/dL 28.4 - 34.8 g/dL [employer] Phone: MCV (RBC) [Entitic vol] 87.0 fL 82.6 - 102.9 fL [employer] Phone: Monocytes/100 WBC (Bld) 7 % 3 - 12 % M [employer] Work Phone: NRBC Automated 0.0 0.0 per 100 WBC [employer] Phone: Platelet distribution width (Bld) [Ratio] 13.1 % 11.8 - 14.4 % [employer] Phone: Platelet Estimate NOT REPORTED [employer] Phone: Platelet mean volume (Bld) [Entitic vol] 9.7 fL 8.1 - 13.5 fL [employer] Phone: Platelets (Bld) [#/Vol] 345 10*3/uL [employer] Phone: RBC (Bld) [#/Vol] 4.32 10*6/uL 3.95 - 5.1 1 m/uL [employer] Work Phone: RBC (Bld) [#/Vol] NOT REPORTED [employer] Phone: Segmented neutrophils/100 WBC (Bld) 68 % High 36 - 65 % [employer] Work Phone: Segs Absolute 9.87 High [employer] Work Phone: WBC (Bld) [#/Vol] 14.3 10*3/uL High [employer] Work Phone: WBC (Bld) [#/Vol] NOT REPORTED [employer] Phone: [employer] Work Phone: Creatinine, SerumOrdered By: Vinicius Bullock on 12-13-2020 Creatinine [Mass/Vol] 1.48 mg/dL High 0.50 - 0.90 mg/dL [employer] Phone: GFR 44 mL/min Low >60 [employer] Work Phone: GFR Non- 36 mL/min Low >60 [employer] Phone: Interpretation and review of laboratory results Abnormal [employer] Phone: [employer] Phone: Hepatic Function PanelOrdere d By: Vinicius Bullock on 12-13-2020 Albumin [Mass/Vol] 4.2 g/dL 3.5 - 5.2 g/dL [employer] Phone: Albumin/Globulin [Mass ratio] 1.1 {ratio} [employer] Phone: ALP (Bld) [Catalytic activity/Vol] 86 U/L 35 - 104 U/L [employer] Phone: ALT [Catalytic activity/Vol] 12 U/L 5 - 33 U/L [employer] Phone: AST [Catalytic activity/Vol] 21 U/L <32 [employer] Phone: Bilirubin [Mass/Vol] mg/dL Low 0.3 - 1 .2 mg/dL [employer] Phone: Bilirubin, Indirect CANNOT BE CALCULATED 0.00 - 1.00 mg/dL [employer] Phone: Bilirubin.indirect [Mass/Vol] mg/dL <0.31 mg/dL [employer] Phone: Free PSA/Total PSA [Mass fraction] 7.9 g/dL 6.4 - 8.3 g/dL [employer] Phone: Globulin NOT REPORTED 1.5 - 3.8 g/dL [employer] Phone: Interpretation and review of laboratory results Abnormal [employer] Phone: [employer] Phone: Laboratory - Chemistry and C hemistry - challengeOrdered By: Vinicius Bullock on 12-13-2020 GFR/1.73 sq M.predicted MDRD (S/P/Bld) [Vol rate/Area] [employer] Phone: Comment on above: Average GFR for [...] Interpretation and review of laboratory results Abnormal [employer] Phone: Sed Rate 54 mm High 0 - 20 mm [employer] Phone: [employer] Phone: CBC Auto Differentialon 09-26 Basophils (Bld) [#/Vol] 0.06 10*3/uL [employer] Phone: Basophils/100 WBC (Bld) 1 % 0 - 2 % M [employer] Phone: Differential Type NOT REPORTED [employer] Phone: Eosinophils (Bld) [#/Vol] 0.33 10*3/uL [employer] Phone: Eosinophils/100 WBC (Bld) 4 % 1 - 4 % [employer] Phone: Erythrocyte distribution width (RBC) [Ratio] 13.3 % 11.8 - 14.4 % [employer] Phone: Hematocrit (Bld) [Volume fraction] 39.0 % 36.3 - 47.1 % [employer] Phone: Hemoglobin (Bld) [Mass/Vol] 12.3 g/dL 11.9 - 15.1 g/dL [employer] Phone: Immature granulocytes (Bld) [#/Vol] 0 % 0 [employer] Phone: Immature granulocytes (Bld) [#/Vol] 0.04 10*3/uL [employer] Phone: Lymphocytes (Bld) [#/Vol] 2.45 10*3/uL [employer] Phone: Lymphocytes/100 WBC (Bld) 27 % 24 - 43 % [employer] Phone: MCH (RBC) [Entitic mass] 27.8 pg 25.2 - 33.5 pg [employer] Phone: MCHC (RBC) [Mass/Vol] 31.5 g/dL 28.4 - 34.8 g/dL [employer] Phone: MCV (RBC) [Entitic vol] 88.2 fL 82.6 - 102.9 fL [employer] Phone: Monocytes (Bld) [#/Vol] 0.79 10*3/uL [employer] Phone: Monocytes/100 WBC (Bld) 9 % 3 - 12 % [employer] Work Phone: Platelet mean volume (Bld) [Entitic vol] 10.4 fL 8.1 - 13.5 fL [employer] Phone: Platelets (Bld) [#/Vol] 284 10*3/uL [employer] Phone: Platelets (Bld) [#/Vol] NOT REPORTED [employer] Phone: RBC (Bld) [#/Vol] 4.42 10*6/uL 3.95 - 5.1 1 m/uL [employer] Phone: RBC morphology finding Nom (Bld) NOT REPORTED [employer] Phone: Segmented neutrophils/100 WBC (Bld) 59 % 36 - 65 % [employer] Phone: Segs Absolute 5.38 [employer] Work Phone: WBC (Bld) [#/Vol] 9.1 10*3/uL [employer] Work Phone: WBC (Bld) [#/Vol] 0.0 10*3/uL 0.0 per 10 0 WBC [employer] Phone: WBC Morphology NOT REPORTED [employer] Phone: Creatinine, Serumon 10-14-19 Creatinine [Mass/Vol] 1.45 mg/dL High 0.50 - 0.90 mg/dL [employer] Phone: GFR 45 mL/min Low >60 [employer] Phone: GFR Non- 37 mL/min Low >60 [employer] Phone: Interpretation and review of laboratory results Abnormal [employer] Phone: Hepatic Function Panelon Albumin [Mass/Vol] 4.5 g/dL 3.5 - 5.2 g/dL [employer] Phone: Albumin/Globulin [Mass ratio] 1.3 {ratio} [employer] Phone: ALP [Catalytic activity/Vol] 93 U/L 35 - 104 U/L [employer] Phone: ALT [Catalytic activity/Vol] 12 U/L 5 - 33 U/L [employer] Phone: AST [Catalytic activity/Vol] 21 U/L <32 [employer] Phone: Bilirubin Ql (U) <0.10 Low 0.3 - 1.2 mg/dL [employer] Phone: Bilirubin, Indirect CANNOT BE CALCULATED 0.00 - 1.00 mg/dL [employer] Phone: Bilirubin.direct [Mass/Vol] mg/dL <0.31 mg/dL [employer] Phone: Globulin (S) [Mass/Vol] NOT REPORTED 1.5 - 3.8 g/dL [employer] Phone: Interpretation and review of laboratory results Abnormal [employer] Phone: Protein [Mass/Vol] 7.9 g/dL 6.4 - 8.3 g/dL [employer] Phone: Metabolic Panelon 10-13-2020 GFR/1.73 sq M predicted among non-blacks MDRD (S/P/Bld) [Vol rate/Area] [employer] Phone: Comment on above: Stage 1: Some [...] body mass. Additional eGFR calculator available at: http://www.Biomonitor/multiple_crcl_2012.htm Sedimentation Rateon 021 Interpretation and review of laboratory results Abnormal [employer] Phone: Sed Rate 25 mm High 0 - 20 mm [employer] Phone: XR ABDOMEN (KUB) (SINGLE AP VIEW)on 11-10-2019 No definite renal stones are seen. There is a 2-3 mm calcification in the pelvis on the left felt more likely to reflect a phlebolith although a distal left ureteral stone is not entirely excluded. Consider CT as clinically indicated. [employer] [place], [place] EXAMINATION: ONE SUPINE XRAY VIEW(S) OF THE [...] intraperitoneal free air. No acute bony abnormalities. [facility] Hector, Mhpn Incoming Radiant Results From [facility] - 11/10/2019 8:02 AM EDT EXAMINATION: ONE [...] entirely excluded. Consider CT as clinically indicated. [facility] FINGER LEFT MIN 2 VWSon 03-29 FINGER LEFT MIN 2 VWS [facility] [address] [place] [address] Patient Name: SYLVIA GARAY : 1965Sex: FAge: Race: OtherMRN: [id number]. Location: OUTPPatient Status: OVisit #: [id number] Date: 04/15/2017 7:10:00 AMCompleted Date: 04/15/2017 08:31 AMRequesting Provider: OREN LOPES Attending Provider: OREN LOPES Report Copy To: Signs & Symptoms: LT THUMB IP FUSIONHistory: LT THUMB IP FUSIONComments: LT THUMB IP FUSIONExam: FINGER LEFT MIN 2 VWSAccession #: [id number] FIN SEAN LEFT MIN 2 VWS 04/15/2017 8:31 AM EDT SIGNS AND SYMPTOMS: LT THUMB IP FUSION lt thumb IP fusion fluoro time 22 secs TECHNIQUE: Intraprocedural fluoroscopy without radiologist supervision or interpretation. Electronically signed by:Mervin Rios M.D.. Transcribed by: [email or web address], User Resident: Electronically Signed by: MERVIN RIOS @ 04/15/2017 10:35 AM Normal [facility] Comment on above: Order Comment: LT TH UMB IP FUSION Operative Reporton 7 Operative Report MR#: [id number] [facility] Pt. Name: Sylvia Garay Room #: 0C Discharge Date: Birthdate: 1965 OPERATIVE REPORTDATE OF SURGERY: 04/15/2017SURGEON: Oren Lopes M.D.PREOPERATIVE DIAGNOSIS: Degenerative osteoarthritis, left thumb IP joint.POSTOPERATIVE DIAGNOSIS: Degenerative osteoarthritis, left thumb IPjoint.PROCEDURE: IP joint fusion, left thumb.BOAT JOINER: Cain Jean M.D.ANESTHESIA: Regional with an axillary block.INDICATION FOR SURGERY: Sylvia is a 51-year-old female who [facility] with complaints of pain and worsening deformityin her left thumb. Clinically, she has about 88-68-ycstwf ulnar deviationdeformity at the IP joint of [...] prepared andthe thumb was straight with good tyov-af-vafu contact. We took a guidewirefrom the Arthrex [...] extensor mechanism was reapproximated with a couple keivbyab-vp-quysf sutures of 4-0 Vicryl. The skin with a buried 4-0 Vicryland then 5-0 Novafil. Sterile dressing of Xeroform gauze, 4x4, fluffs,Araceli, and an William bandage were applied. The tourniquet was released. Allsponge and needle counts were correct at time of closure.Electronicall y Signed by:Oren Lopes M.D. 04/16/2017 12:36 P Marti erlin Lopes M.D.Date Dict: 04/15/2017/10:23 A/Oren Lopes M.D.Date Trans: 04/15/2017 10:48 A/[id number]: Josefa Martinez M.D. Life Stages 3 [facility] [id number] Normal [facility] POC GLUCOSE LABon 04-15-2017 Glucose mass conc 100 mg/dL Normal 70-100 [facility] Comment on above: Performed By: #### [id number] ####[address] FINGER LEFT MIN 2 VWSon 01-26 FINGER LEFT MIN 2 VWS [facility] [address] [place] [address] Patient Name: SYLVIA GARAY : 1965Sex: FAge: Race: OtherMRN: [id number]. Location: 84Patient Status: OVisit #: [id number] Date: 02/13/2017 9:25:00 AMCompleted Date: 02/13/2017 09:28 AMRequesting Provider: BOB BROWN Attending Provider: BOB BROWN Report Copy To: Signs & Symptoms: S63.125A Dislocation of unsp interphaln joint of left thumb, init [id number]: AthenaComments: , , L thumb , , , Ordering Provider - CHRISTOPHER BROWN , Rendering Provider - CHRISTOPHER BROWN , Exam: FINGER LEFT MIN 2 VWSAccession #: [id number] FIN SEAN LEFT MIN 2 VWS 02/13/2017 [...] change. Electronically signed by:Mervin Epstein. Transcribed by: [email or web address], User Resident: Electronically Signed by: MERVIN EPSTEIN @ 02/13/2017 10:45 AM Normal [facility] Comment on above: Order Comment: , , L thumb , , , Ordering Provider - CHRISTOPHER BROWN , Rendering Provider - CHRISTOPHER BROWN , Vital Signs Date Time Vital Sign Value Performing Clinician Facility 12-16-2023 09:0400 Body height 152.4 cm [facility] 12-16-2023 09:22-0400 Body mass index (BMI) [Ratio] 32.4 kg/m2 [facility] 12-16-2023 09:22-0400 Body temperature 97.2 [degF] [facility] 12-16-2023 09:22-0400 Body weight 75.29 kg [facility] 12-16-2023 09:22-0400 Diastolic blood pressure 81 mm[Hg] [facility] 12-16-2023 09:22-0400 Heart rate 73 /min [facility] 12-16-2023 09:22-0400 Respiratory rate 20 /min [facility] 12-16-2023 09:22-0400 SaO2% (BldA) [Mass fraction] 99 % [facility] 12-16-2023 09:22-0400 Systolic blood pressure 113 mm[Hg] [facility] 12-19-2021 09:30-0400 Body height 152.4 cm Candi Bernsteinyonas Other [facility] Other 12-19-2021 09:30-0400 Body mass index (BMI) [Ratio] 34.37 kg/m2 Candi Bernsteinyonas Other [facility] Other 12-19-2021 09:30-0400 Body temperature 96.9 [degF] Candi Dayban Other [facility] Other 12-19-2021 09:30-0400 Body weight 79.83 kg Candi Ariel Other [facility] Other 12-19-2021 09:30-0400 Diastolic blood pressure 72 mm[Hg] Candi Ariel Other [facility] Other 12-19-2021 09:30-0400 Respiratory rate 20 /min Candi Dayban Other [facility] Other 12-19-2021 09:30-0400 SaO2% (BldA) [Mass fraction] 99 % Candi George Other [facility] Other 12-19-2021 09:30-0400 Systolic blood pressure 120 mm[Hg] Candi George Other [facility] Other 10-13-2020 14:25-0400 BP Diastolic 89 mm[Hg] [employer] Phone: 10-13-2020 14:25-0400 BP Systolic 135 mm[Hg] [facility] Phone: 10-13-2020 14:25-0400 Pulse (Heart Rate) 81 /min [employer] Phone: 10-13-2020 14:25-0400 Respiratory Rate 16 /min [employer] Phone: 10-13-2020 14:00-0400 Pulse Oximetry 98 % [employer] Phone: 10-13-2020 11:13-0400 BMI (Body Mass Index) 34.76 kg/m2 [employer] Phone: 10-13-2020 11:13-0400 Body Temperature 98.01 [degF] [facility] Phone: 10-13-2020 11:13-0400 Body weight 80.74 kg [employer] Phone: Encounters Encounter Date Encounter Type Care Provider Facility Start: 03-05-2024 End: 03-05-2024 ambulatory FLORY Do [facility] Start: 03-04-2024 ambulatory FLORY Do [facility] Start: 02-07-2024 ambulatory Frank Garcia ty:[facility] Start: 12-26-2023 End: 12-26-2023 ambulatory FLORY Hi [facility] Start: 12-18-2023 End: 12-18-2023 [facility] Start: 12-16-2023 End: 12-16-2023 ambulatory [facility] Work Phone: Start: 12-16-2023 End: 12-16-2023 Patient encounter procedure [facility] Work Phone: Start: 12-13-2023 End: 12-16-2023 ambulatory BOB PARKERMARY [facility] Start: 12-04-2023 End: 12-04-2023 ambulatory FLORY Do [facility] Start: 09-03-2023 End: 09-03-2023 ambulatory FLORY Do [facility] Start: 08-13-2023 End: 08-13-2023 ambulatory LINK LOUISE Not Available Start: 08-06-2023 End: 08-06-2023 ambulatory JOSEFA MARTINEZ Not Available Start: 05-14-2023 End: 05-14-2023 ambulatory FLORY Do [facility] Start: 02-04-2023 End: 02-05-2023 ambulatory Frank JOE Facility:[facility] Start: 11-06-2022 End: 11-07-[address] VINICIUS BULLOCK Facility:[facility] Start: 09-11-2022 End: 09-12-[address] VINICIUS BULLOCK Facility:[facility] Start: 08-13-2022 End: 08-13-2022 ambulatory Josefa Martinez Facility:[facility] Start: 08-13-2022 End: 08-13-2022 ambulatory MD Josefa Martinez Work Phone: [facility] Work Phone: Start: 08-13-2022 End: 08-13-2022 Patient encounter procedure MD Josefa Martinez Work Phone: [facility] [place] Work Phone: Start: 07-25-2022 End: 07-25-2022 ambulatory Josefa Martinez Facility:[facility] Start: 07-25-2022 End: 07-25-2022 ambulatory MD Josefa Martinez Work Phone: [facility] Work Phone: Start: 07-25-2022 End: 07-25-2022 Patient encounter procedure MD Josefa Martinez Work Phone: [facility]Electrodiagnostics Work Phone: Start: 06-11-2022 End: 06-11-2022 Subsequent hospital visit by physician Josefa Martinez MD Work Phone: [facility] Start: 04-11-2022 End: 04-11-2022 Subsequent hospital visit by physician Josefa Martinez MD Work Phone: [facility] Start: 02-15-2022 End: 02-15-2022 Subsequent hospital visit by physician Josefa Martinez MD Work Phone: [facility] Start: 02-09-2022 End: 02-10-2022 ambulatory Frank JOE Facility:[facility] Start: 12-19-2021 End: 12-19-2021 ambulatory Candi George Other [facility] Other Start: 12-19-2021 Office outpatient visit 15 [...] by physician Apple Manriquez Dr Room 2 [facility] Comment on above: Urinary urgency Start: 02-07-2021 End: 02-07-2021 Subsequent hospital visit by physician Josefa Martinez Work Phone: [facility] Start: 12-13-2020 End: 12-13-2020 Subsequent hospital visit by physician Josefa Martinez Work Phone: [facility] Start: 10-13-2020 End: 10-13-2020 Emergency department patient visit Zakiya Lea Knight Work Phone: [facility] ED Comment on above: Fall, initial encoun ter (Primary Dx); Abrasion of scalp, initial encounter Start: 10-13-2020 End: 10-13-2020 Subsequent hospital visit by physician Josefa ANGEL[facility] Start: 11-10-2019 End: 11-12-2019 Subsequent hospital visit by physician Apple Manriquez Dr Room 4 [facility] Comment on above: Kidney stone Start: 01-27-2018 End: 01-28-2018 Ambulatory DEFAULT PHYSICIAN Facility:[facility] Start: 04-25-2017 End: 04-26-2017 Ambulatory DEFAULT PHYSICIAN Facility:[facility] Start: 04-15-2017 End: 04-16-2017 [facility] Start: 02-13-2017 End: 02-14-2017 Ambulatory BOB HINGHAM Facility:[facility] Procedures Date Procedure Procedure [...] DTaP/Tdap/Td vaccine (4 - Td or Tdap) [facility] [employer] Start: 08-31-2028 DTaP/Tdap/Td vaccine (4 - Td) DTaP/Tdap/Td vaccine (4 - Td) [facility] [place] Start: 10-03-2022 Creatinine measurement Creatinine [facility] [employer] Start: 05-30-2022 [facility]inine [facility] Start: 04-04-2022 Creatinine measurement Creatinine mo [facility] [employer] Work Phone: Start: 03-29-2022 Influenza vaccination Flu vaccine (# 1) [facility] Start: 02-26-2022 Influenza vaccination Flu vaccine (# 1) [facility] [employer] Start: 02-07-2022 Creatinine measurement Creatinine mo [facility] [employer] Work Phone: Start: 12-13-2021 Creatinine measurement Creatinine mo [facility] [employer] Work Phone: Start: 10-13-2021 Creatinine measurement Creatinine mo [facility] [employer] Work Phone: Start: 10-11-2021 COVID-19 Vaccine (4 - Booster for Caden series) COVID-19 Vaccine (4 - Booster for Caden series) [facility] Start: 03-29-2021 [facility] Start: 12-22-2020 COVID-19 Vaccine (2 - Booster for Caden series) COVID-19 Vaccine (2 - Booster for Caden series) [facility] Start: 03-29-2020 Influenza vaccination [place], [place] Start: 10-06-2017 Lipid panel [facility] Start: 10-06-2017 Lipid screen Lipid screen [place], [place] Start: 10-23-2016 Creatinine monitoring Creatinine mon itoring [place], [place] Start: 10-23-2016 Potassium [Moles/vol ume] in Serum or Plasma Potassium [facility] Start: 10-23-2016 Potassium monitoring Potassium monit oring [facility] Start: 03-24-2016 Shingles Vaccine (2 of 3) Shingles Vaccine (2 of 3) [facility] Start: 2014 Breast cancer screen Breast cancer s creen [place], [place] Start: 2014 Colon cancer screen colonoscopy Colon cancer screen colonoscopy [place], [place] Start: 2014 Screening for malign ant neoplasm of breast Breast cancer screen [facility] Start: 2014 Screening for malign ant neoplasm of colon Colon cancer screen colonoscopy [facility] Work Phone: Start: 08-30-2012 Screening for malign ant neoplasm of colon [facility] Start: 08-31-2011 Screening for malign ant neoplasm of colon Colorectal Cancer Screen [facility] Start: 2009 Screening for malign ant neoplasm of colon [facility] Start: 1994 Screening for malign ant neoplasm of cervix [facility] Start: 1985 Cervical cancer screen Cervical canc er screen [place], [place] Start: 1985 Screening for malign ant neoplasm of cervix [facility] Start: 1982 Hepatitis C screening Hepatitis C sc reen [facility] Start: 1980 COVID-19 Vaccine (1) COVID-19 Vaccin e (1) [facility] [employer] Work Phone: Start: 1979 HIV screen HIV screen [place], [place] Start: 1979 HIV screening HIV screen [facility] Start: 1976 COVID-19 Vaccine (1) COVID-19 Vaccin e (1) [employer] Work Phone: Start: 1976 Depression Screen Depression Screen [facility] Start: 1964 Hepatitis C screen [facility] [place] [place] Start: 1964 Hepatitis C screening Hepatitis C sc [facility] [employer] [facility] CT Chest WO contrast [facility] Immunizations Immunization Date Immunization Notes Care Provider Fa cility 08-16-2021 COVID-19 Moderna Candi Peters n Other [facility] 10-14-2020 COVID-19 Vaccine Gianluca ssen - Documentation Purposes Only Candi George Other [facility] Payers Date Payer Category Payer Unknown [id number] 2022 Self-pay [id number] 2019 Unknown [employer] xxxxxxxxx 2019-Present [phone] [address] [place] [address] xxxxxxxxx [id number] 2015 Unknown [id number] 1965 Unknown [id number] 1964 Unknown [id number] 1964 Unknown [id number] 1964 Unknown [id number] 1964 Unknown [id number] 1964 Unknown [id number] 1964 Unknown [id number] 1964 Unknown [id number] 1959 Unknown [id number] Unknown Unknown [id number] Unknown [id number] Social History Date Type Detail Facility Start: 01-29-2013 End: 12-16-2023 Tobacco [facility] status NHIS [facility] Start: 01-29-2013 End: 05-20-2022 Alcohol intake Current non-drinker of alcohol (finding) [facility] [place] Start: 1965 Sex Assigned At Not on file [place] Start: 10-13-2020 Tobacco use and exposure Never used [employer] Phone: Start: 05-10-2022 End: 05-20-2022 Exposure to SARS-CoV-2 (event) Not sure [employer] Phone: Sex Assigned At Sex Assigned At Bir [facility] Other History of tobacco use Current smoker SALLY LORI [employer] Phone: Start: 1965 Sex Assigned At Female F [facility] Clinical Notes 12-19-2021 to 03-05-2024 Note Date & Type Note Facility 03-05-2024 Note Subjective Sylvia Moon is a 58 y.o. year old female patient being seen for pulmonary arterial hypertension. Patient relatively doing well. She denied chest pain or chest discomfort. She has stable dyspnea on exertion with minimal dizziness but no palpitations. Patient Active Problem List Diagnosis Arthropathy Atrial fibrillation (CMS/HCC) Chest pain Coronary artery disease involving nondalton coronary artery of nondalton heart without angina pectoris Deficiency anemia Essential [...] 101 (H) 10/03/2022 (more content not included)... [facility] 01-29-2024 Note Prior authorization was completed for patient 01/20/2024, for medication Abrisentan. The request has been approved from 01/28/2024-07/30/2024. Patient must that this is considered a Specialty medication, therefore patients plan requires that the medication be ordered through [facility] Phone . Will contact patient and inform her that this medication has been approved and that the specialty pharmacy will need to be contacted. [facility] 01-23-[address]Khouri alley ZHAO and that it is excluded from patients plan. Dr. Pruitt asked to send in Ambrisentan 5 mg was sent to patients pharmacy [facility] 12-25-2023 Note Received update on [...] , an appeal will not be available. [facility] 12-25-2023 Note Prior Authorization has been completed for this patient for the medication Opsumit 10 mg. Determination is pending will update once an outcome has been received [facility] 12-18-2023 Note Patient: Sylvia Jewell Procedure Information Date/Time: 12/18/23 0900 Procedure: Right heart cath Location: [facility] RESIDENCY DIRECTOR 2 [facility] (Cath) Providers: Maximilian Luz [...] with fellow and attending. Additional Equipment Requests [facility] 12-04-2023 Note ------ Attestation signed [...] (CMS/HCC) Chest pain Coronary artery disease involving nondalton coronary artery of nondalton heart without angina pectoris Deficiency anemia Essential [...] physical exam H (more content not included)... [facility] 09-03-2023 Note Subjective Earlynne Red [...] (CMS/HCC) Chest pain Coronary artery disease involving nondalton coronary artery of nondalton heart without angina pectoris Deficiency anemia Essential [...] to provide her medication. I asked my boilermaker's assistant and Feli THOMPSON, to call [facility] special pharmacy and send notes medication by mail. We will focus on her getting her medication. We will try to find a way to (more content not included)... [facility] 05-14-2023 Note [facility] Note Chief Complaint: PAH HPI: [...] much as we can. I asked my boilermaker's assistant and MA, Feli, to call [facility] special pharmacy and send notes medication by mail. We will try to find a way to cover her medication. 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 [facility] 12-19-2021 Evaluation note Encounter Date Diagnosis Assessment Notes November, Pulmonary fibrosis, unspecified (ICD-10 - J84.10) November, Systemic sclerosis, unspecified (ICD-10 - M34.9) November, 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) [facility] Other Evaluation note* Diagnosis Urinary urgency Urgency of urination documented in this encounter [employer] Phone: evaluation note* Diagnosis Pulmonary fibrosis (HCC) Postinflammatory pulmonary fibrosis documented in this encounter [employer] Phone: evaluation noteNo assessment information available [facility] Work Phone: Evaluation note* Diagnosis Onset Date Resolution Status History of tobacco abuse acu te 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 acute Pulmonary fibrosis, unspecified acute 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 acute Scleroderma acute [facility] Work Phone: History general Narrative - Reported* Type Description Date Medical History scleroderma Medical History Hypertension Medical History pulmonary hypertension Medical History Esophageal reflux Surgical History D&C 2000 Surgical History C section 2001 Surgical History tubal ligation 2001 [facility] Other Summary Purpose Family History No Family History Records Found Relationship Condition Age at Onset Recorded Date/T saleem Not Specified Diabetes mellitus Unknown brother Malignant neoplasm Unknown father Hypertension Unknown Not Specified Hypertension Unknown Advance Directives No Advanced Directives Records FoundDocuments on File Type Date Recorded 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 * Head Injury (Monegasque) documented in this encounter Chief Complaint and [...] and content) DATE CREATED AUTHOR 01/31/2018 [facility] DATE CREATED AUTHOR AUTHOR'S ORGANIZ ATION 09/01/2022 [facility] DATE CREATED AUTHOR AUTHOR'S ORGANIZ ATION 11/12/2022 [facility] DATE CREATED AUTHOR AUTHOR'S ORGANIZ ATION 02/05/2023 [facility] DATE CREATED AUTHOR AUTHOR'S ORGANIZ ATION 08/14/2023 [facility] EP[facility] DATE CREATED AUTHOR AUTHOR'S ORGANIZ ATION 12/16/2023 [facility] DATE CREATED AUTHOR AUTHOR'S ORGANIZ ATION 03/09/2024 [facility] Reason for Visit (unrecogniz ed section and content) Reason Comments Fall 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 Pt denies LOC, states I saw stars Specialty Diagnoses / Procedures Referred By Suki chaudhari Referred To Contact Radiology Diagnoses Pulmonary fibrosis (HCC) Procedures CT CHEST HIGH RESOLUTION CT CHEST WO CONTRAST Candi George MD Referral ID Status Reason Start Date Expiration Date Visits Re quested Visits Authorized [id number] Closed 11/06/2021 12/05/2021 1 1 Care Teams (unrecognized sec tion and content) Special Skills Officer Relationship Specialty Start Date End Date Josefa Martinez MD [address] [place] [id number] PCP - General 10/03/12 Special Skills Officer Relationship Specialty Start Date End Date Josefa Martinez MD [address] [phone] PCP - General 10/03/12 Special Skills Officer Relationship Specialty Start Date End Date Josefa Martinez MD [address] [phone] PCP - General 10/03/12 Team Status: Inactive [...] BE BASED ON THE PRIMARY CLINICAL RECORDS. [employer] provides no warranty or guarantee of the accuracy or completeness of information in this document.
[2024-05-25 08:27] LABS: Basophils Absolute Auto 0.1 10^3/uL (0.0-0.1); Basophils Percent Auto 0.9 % (0.2-2.0); Eosinophils Absolute Auto 0.3 10^3/uL (0.0-0.7); Eosinophils Percent Auto 3.5 % (0.9-7.0); Hematocrit 36.5 % (36.0-48.0); Immature Granulocytes Abs Auto 0.02 10^3/uL (0.00-0.03); Immature Granulocytes Pct Auto 0.2 % (0.0-0.5); Lymphocytes Percent Auto 24.3 % (20.5-60.0); Mean Corpuscular HGB Conc 32.9 g/dL (29.9-35.2); Mean Corpuscular Hemoglobin 28.8 pg (26.7-34.0); Mean Corpuscular Volume 87.5 fL (81.0-99.0); Mean Platelet Volume 10.5 fL (9.5-13.5); Monocytes Absolute Auto 0.7 10^3/uL (0.3-0.8); Monocytes Percent Auto 8.5 % (1.7-12.0); Neutrophils Percent Auto 62.6 % (43.0-75.0); Platelet Count 271 10^3/uL (150-450); Red Blood Count 4.17 10^6/uL (4.20-5.40); Red Cell Distribution Width 13.4 % (11.0-15.0)
[2024-05-25 08:29] LABS: Erythrocyte Sedimentation Rate 12 mm/hr (<=30)
[2024-05-25 09:01] LABS: Alanine Aminotransferase 15 U/L (14-59); Albumin Level 3.5 g/dL (3.4-5.0); Alkaline Phosphatase 129 U/L (46-116); Aspartate Amino Transferase 20 U/L (15-37); Bilirubin Direct 0.1 mg/dL (0.0-0.2); Bilirubin Total 0.2 mg/dL (0.2-1.0); Estimated GFR (African America 58 (>=60 mL/min/1.73m^2); Estimated GFR (Non-African Ame 48 (>=60 mL/min/1.73m^2); Globulin 3.4 g/dL; Total Protein 6.9 g/dL (6.4-8.2)
== END 2024-05-25 07:38 | disposition home or self-care (01) ==
LOC: LAB 07:38
PROVIDERS: PCP Family Medicine; Visit Provider Internal Medicine Rheumatology
DX: M05.79 Rheumatoid arthritis with rheumatoid factor of multiple sites without organ or systems involvement (principal); Z79.899 Other long term (current) drug therapy
CPT/HCPCS: 36415; 80076; 82565; 85025; 85652

== ENCOUNTER 2024-08-07 07:35 | Outpatient (OUT) | payer OTHER, SELFPAY ==
--- OUTSIDE RECORDS SUMMARY | 2024-08-07 07:40 | XMS_ITS | CCD ---
Author Organization [facility] Care Team Providers Care Die Finisher Name Role Phone BOB BROWN Unavailable Unavailable BOB BROWN Unavailable Unavailable MICHELLE, RUGEN Unavailable Unavailable BROWN, CHRISTOPHER Unavailable Unavailable SKIE, OREN Unavailable Unavailable SKIE, OREN Unavailable Unavailable MICHELLE, RUGEN Unavailable Unavailable MICHELLE, RUGEN Unavailable Unavailable DE Unavailable Unavailable SKIE, OREN Unavailable Unavailable DE Unavailable Unavailable PITRODA, TENNILLE Unavailable Unavailable PHYSICIAN, DEFAULT Unavailable Unavailable PHYSICIAN, DEFAULT Unavailable Unavailable MICHELLE, RUGEN Unavailable Unavailable PHYSICIAN, DEFAULT Unavailable Unavailable PHYSICIAN, DEFAULT Unavailable Unavailable MICHELLE, RUGEN Unavailable Unavailable Josefa Martinez Primary Care Provider [phone] Josefa Martinez Primary Care Provider Josefa Martinez Primary Care Provider [phone] Josefa Martinez MD Primary Care Provider Josefa Martinez MD Primary Care Provider [phone] Candi George Unavailable Josefa Martinez MD Primary Care Provider [phone] Josefa Martinez MD Primary Care Provider MD Josefa Martinez Primary Care Provider MD [...] HALADAY, DR COLVIN Consulting Unavailable HALADAY, DR COLIVN Admitting Unavailable HALADAY, DR COLVIN Attending Unavailable MICHELLE, DR RIVERO Primary Care Unavailable HALADAY, DR COLVIN Consulting Unavailable Frank JOE Attending Unavailable JUNIOR, Frank Lea Attending Unavailable JUNIOR, Frank Lea Attending Unavailable MICHELLE, JOSEFA Chapman Attending Unavailable LINK LOUISE Attending Unavailable BOB HARDING Referring Unavailabl e JOSEFA MARTINEZ Primary Care Unavailable Josefa Martinez MD Primary Care Provider FLORY PRUITT Attending Unavailable MAXIMILIAN TAVERAS Admitting Unavailable MAXIMILIAN TAVERAS Attending Unavailable EDMOND, SAMER J Referring Unavailable EDMOND, SAMER J Attending Unavailable EDMOND, SAMER J Attending Unavailable EDMOND, SAMER J Referring Unavailable EDMOND, SAMER J Attending Unavailable EDMOND, SAMER J Referring Unavailable EDMOND, SAMER J Referring Unavailable Allergies Allergy Classification Reported Allergen(s) Allergy Type Date of Onset Reaction(s) Facility (3 sources) amoxicillin / clavulanate; Translations: [Augmentin] Drug Allergy 1 [facility] Repository (18 sources) Amoxicillin-Pot Clavulanate; Translations: [AMOXICILLIN-PO T CLAVULANATE] Propensity to adverse reactions to drug 3 [place], [place] (1 source) Amoxicillin / Clavulanate Drug Allergy [facility] Xanodyne Other (4 sources) Amoxicillin; Translations: [amoxicillin] Drug Allergy 4 [facility] Repository (1 source) Clavulanate Drug Allergy [facility] Medications Current Medications Medication Drug Class(es) Dates [...] 81 mg by mouth daily. 0 Active atorvastatin 40 mg oral tablet (2 sources) HMG-CoA Reductase Inhibitor Start: 08-12-2023 End: 09-15-2024 take 1 tablet by mouth in the morning atorvastatin (Lipitor) 40 MG tablet Indications: Hyperlipidemia, unspecified hyperlipidemia type (CMS/HCC) Take 1 tablet (40 mg) by mouth in the morning. 100 tablet 3 08/12/2023 09/15/2024 Active Clover Low Strength 81 MG (1 source) take 1 tablet by mouth once daily carvedilol 6.25 mg oral tablet (19 sources) alpha-Adrenergi c Joie, beta-Adrenergic Joie Start: 11-13-2023 take 1 tablet by mouth twice daily at mealtime Carvedilol Active 1 TAB PO Twice daily December 16, 2023 12:00am FreeTextSi tablet with food Orally Twice a day; Note: Source Status: Taking; Provider: Ariel Christopher ( ) take 1 tablet by jovana twice daily at mealtime carvedilol (COREG) 6.25 MG tablet Take 6.25 mg by mouth 2 times daily (with meals). 0 Active celecoxib 200 mg oral capsule (2 sources) Nonsteroidal Anti-inflammatory Drug Start: 11-20-2023 take 1 capsule by mouth once daily at mealtime celecoxib (CeleBREX) 200 MG capsule Indications: Rheumatoid arthritis in remission (CMS/HCC) TAKE 1 CAPSULE BY MOUTH ONCE DAILY WITH FOOD FOR 90 DAYS 100 capsule 3 11/20/2023 Active ferrous sulfate 325 mg oral tablet (15 sources) take 1 tablet by mouth once daily at breakfast ferrous sulfate 325 (65 FE) MG tablet Take 325 mg by mouth daily (with breakfast). 0 Active furosemide 20 mg oral tablet (2 sources) Loop Diuretic Start: 11-20-2023 take 1 tablet by mouth in the morning furosemide (Lasix) 20 MG tablet Indications: Edema, unspecified type Take 1 tablet (20 mg) by mouth in the morning and 1 tablet (20 mg) before bedtime. 200 tablet 3 11/20/2023 Active hydroCHLOROthiazide 25 mg oral tablet (19 sources) Thiazide Diuretic Start: 12-16-2023 take 1 tablet by mouth once daily Hydrochlorothiazide Active 1 TAB PO Daily December 16, 2023 12:00am FreeTextSi tablet Orally Once a day; Note: Source Status: Taking; Provider: Ariel Christopher ( ) hydroxychloroquine sulfate 200 mg oral tablet (19 sources) Antimalarial, Antirheumatic Agent Start: 12-16-2023 take 2 tablets by mouth once daily at mealtime Hydroxychloroquine Active 2 TAB PO Daily December 16, 2023 12:00am FreeTextSi tablets with food or milk Orally Once a day; Note: Source Status: Taking; Provider: Ariel Christopher ( ) Start: 06-21-2023 take 1 tablet by jovana th every other day, then take 1 tablet by mouth once daily at mealtime hydroxychloroquine (Plaquenil) 200 MG tablet TAKE 1 TABLET BY MOUTH EVERY OTHER DAY ALTERNATE WITH 1 TAB TWICE A DAY EVERY OTHER DAY. TAKE WITH FOOD, YEARLY EYE EXAM. 06/21/2023 Active take 1 tablet by jovana th twice daily hydroxychloroquine (PLAQUENIL) 200 MG tablet Take 200 mg by mouth 2 times daily. 0 Active take 2 tablets by mo uth once daily at mealtime leflunomide 20 mg oral tablet (2 sources) Antirheumatic Agent Start: 12-16-2023 take 1 tablet by mouth once daily Leflunomide Active 20 MG PO Daily December 16, 2023 12:00am FreeTextSi tablet Orally Once a day; Note: Source Status: Taking; Provider: Ariel Christopher ( ) take 1 tablet by mouth every twe nty-four hours lisinopril 20 mg oral tablet (19 sources) Angiotensin Converting Enzyme Inhibitor Start: 12-16-2023 take 1 tablet by mouth once daily Lisinopril Active 1 TAB PO Daily December 16, 2023 12:00am FreeTextSi tablet Orally Once a day; Note: Source Status: Taking; Provider: Ariel Christopher ( ) Start: 09-25-2023 take 1 tablet by jovana th once daily lisinopril 10 MG tablet Indications: Benign essential hypertension (CMS/HCC) Take 1 tablet by mouth once daily 100 tablet 3 09/25/2023 Active take 1 tablet by jovana th once daily lisinopril (PRINIVIL;ZESTRIL) 20 MG tablet [...] 0 Active NIFEdipine 10 mg oral capsule (19 sources) Dihydropyridine Calcium Channel Joie Start: 12-16-2023 take 10 mg by mouth once Nifedipine Active 10 MG PO Once December 16, 2023 12:00am Start: 10-18-2023 take 1 tablet by jovana th once daily NIFEdipine XL (Procardia XL) 60 MG 24 hr tablet Indications: Benign essential hypertension (CMS/HCC) Take 1 tablet by mouth once daily 100 tablet 3 10/18/2023 Active NIFEdipine (PROC ARDIA XL) 90 MG CR tablet Take 240 mg by mouth daily. 0 Active take 2 tablets by mo [facility] [place] once daily omeprazole 40 mg delayed release oral capsule [...] 150 mg by mouth daily. 0 Active sulfaSALAzine 500 mg delayed release oral tablet (2 sources) Aminosalicylate Start: 023 take 2 tablets by mouth in the morning sulfaSALAzine (Azulfidine) 500 MG EC tablet Take 1,000 mg by mouth in the morning and 1,000 mg before bedtime. 07/19/2023 Active pulmonary hypertension tadalafil 20 mg oral [...] 80 mg by mouth daily. 0 Active 24 hr tolterodine tartrate 4 mg extended release oral capsule (2 sources) Cholinergic Muscarinic Antagonist Start: 06-21-2023 take 1 capsule by mouth every twenty-four hours in the morning tolterodine LA (Detrol LA) 4 MG 24 hr capsule Take 4 mg by mouth in the morning and 4 mg before bedtime. 06/21/2023 Active Problems Active Problems Problem Classification Problem Date Documented Da te Episodic/Chronic Acquired foot deformities (3 sources) Hallux valgus (acquired), left foot; Translations: [Acquired hallux valgus] Onset: 07-25-2022 08-02-2023 Chronic Calculus of urinary tract (1 source) Kidney stone; Translations: [Kidney stone] Episodic Cardiac dysrhythmias (2 sources) Atrial fibrillation; Translations: [Unspecified atrial fibrillation] Onset: 02-13-2013 08-06-2023 Chronic Chronic kidney disease (4 sources) Chronic kidney disease stage 3A ; Translations: [Stage 3a chronic kidney disease (HCC)] Onset: 08-02-2023 08-02-2023 Chronic Chronic ulcer of skin (2 sources) Non-pressure chronic ulcer of other part of left foot with fat layer exposed; Translations: [Ulcer of other part of foot] Onset: 08-02-2023 08-02-2023 Chronic Coronary atherosclerosis and other heart disease (6 sources) Coronary arteriosclerosis; Translations: [Atherosclerotic heart disease of choct[place] coronary artery without angina pectoris] Onset: 02-13-2013 08-06-2023 Chronic Disorders of lipid metabolism (2 sources) Hyperlipidemia; Translations: [Hyperlipidemia, unspecified] Onset: 08-27-2011 08-06-2023 Chronic Esophageal disorders (2 sources) Gastro-esophageal reflux disease without esophagitis; Translations: [Gastroesophageal reflux disease] Onset: 04-15-2017 12-16-2023 Chronic Essential hypertension (6 sources) Essential (primary) hypertension; Translations: [Hypertensive disorder] Onset: 04-15-2017 12-16-2023 Chronic External cause codes: Fall (1 source) Fall; Translations: [Fall, initial encounter] Genitourinary symptoms and ill-defined conditions (1 source) Urgent desire to urinate; Translations: [Urgency of urination] Episodic Gout and other crystal arthropathies (2 sources) Primary gout; Translations: [Idiopathic gout, unspecified site] Onset: 08-02-2023 08-02-2023 Chronic Osteoarthritis (5 sources) Primary osteoarthritis, left hand; Translations: [Secondary osteoarthritis, right hand] Onset: 02-13-2017 Chronic Osteoporosis (2 sources) Senile osteoporosis; Translations: [Age-related osteoporosis without current pathological fracture] Onset: 08-02-2023 08-02-2023 Chronic Other acquired deformities (2 sources) Contracture of joint of left ankle; Translations: [Contracture, left ankle] Onset: 08-02-2023 08-02-2023 Chronic Other aftercare (1 source) Other longterm (current) drug therapy; Translations: [OTH 3D MODELER CURRENT DRUG THERAPY] Onset: 11-12-2022 Episodic Other circulatory disease (2 sources) Raynaud's disease; Translations: [Raynaud's syndrome without gangrene] Onset: 08-02-2023 08-02-2023 Chronic Other connective tissue disease (1 source) Metatarsalgia, right foot; Translations: [Metatarsalgia, right foot] Onset: 07-25-2022 Episodic Other lower respiratory disease (5 sources) Fibrosis of lung; Translations: [Pulmonary fibrosis, unspecified] Onset: 08-02-2023 Chronic Other lower respiratory disease (3 sources) Pulmonary fibrosis, unspecified; Translations: [Postinflammatory pulmonary fibrosis] Onset: 12-19-2021 Resolved: 12-19-2021 Chronic Other lower respiratory disease (1 source) Interstitial lung disease due to connective tissue disease; Translations: [Other specified interstitial pulmonary diseases] 12-16-2023 Chronic Other lower respiratory disease (1 source) Other specified interstitial pulmonary diseases; Translations: [Unspecified diffuse connective tissue disease] 12-16-2023 Chronic Other lower respiratory disease (2 sources) Interstitial lung disease; Translations: [Interstitial pulmonary disease, unspecified] Onset: 08-02-2023 08-02-2023 Chronic Other nervous system disorders (2 sources) Disorder of muscle; Translations: [Myopathy, unspecified] Onset: 08-08-2023 08-08-2023 Chronic Other non-traumatic joint disorders (2 sources) Arthropathy; Translations: [Arthropathy, unspecified] Onset: 03-26-2017 08-06-2023 Chronic Other upper respiratory disease (1 source) Other seasonal allergic rhinitis; Translations: [OTHER SEASONAL ALLERGIC RHINITIS] Onset: 04-15-2017 Chronic Pulmonary heart disease (14 sources) Other secondary pulmonary hypertension; Translations: [Secondary pulmonary hypertension] Onset: 04-15-2017 Resolved: 12-19-2021 Chronic Rheumatoid arthritis and related disease (9 sources) Rheumatoid arthritis, unspecified; Translations: [Rheumatoid arthritis [...] Systemic lupus erythematosus and connective tissue disorders (10 sources) Systemic sclerosis, unspecified; Translations: [Systemic sclerosis] Onset: 04-15-2017 Resolved: 12-19-2021 Chronic Unclassified (2 sources) Unknown / UNK(Unknown) Onset: 02-13-2017 Unclassified (1 source) Encounter for other preprocedural examination; Translations: [Encounter for other preprocedural examination] Onset: 08-13-2022 Unclassified (1 source) Encounter for preprocedural cardiovascular examination; Translations: [Encounter for preprocedural cardiovascular examination] Onset: 07-25-2022 Past or Other Problems Problem Classification Problem Date Documented Date Episodic/Chronic Deficiency and other anemia (2 sources) Deficiency anemias; Translations: [Nutritional anemia, unspecified] Onset: 08-28-2011 08-06-2023 Episodic Gastritis and duodenitis (2 sources) Bile-induced gastritis; Translations: [Other gastritis without bleeding] Onset: 08-02-2023 08-02-2023 Episodic Joint disorders and dislocations; trauma-related (4 sources) Dislocation of interphalangeal joint of left thumb, initial encounter; Translations: [Recurrent dislocation, left finger] Onset: 02-13-2017 Episodic Nonspecific chest pain (2 sources) Chest pain; Translations: [Chest pain, unspecified] Onset: 02-13-2013 08-06-2023 Episodic Other aftercare (1 source) termite helper (current) use of aspirin; Translations: [ALF (CURRENT) USE OF ASPIRIN] Onset: 04-15-2017 Episodic Other connective tissue disease (2 sources) Muscle pain; Translations: [Myalgia, unspecified site] Onset: 08-08-2023 08-08-2023 Episodic Other diseases of veins and lymphatics (2 sources) Peripheral venous insufficiency; Translations: [Venous insufficiency (chronic) (peripheral)] Onset: 08-02-2023 08-02-2023 Episodic Other lower respiratory disease (2 sources) Dyspnea; Translations: [Shortness of breath] Onset: 09-21-2022 08-06-2023 Episodic Results Test Name Value Interpretation Reference Range Facility Office Visiton 07-14-2024 Follow-up visit [id number] MeganenricoSylvia 1965 F Date Provider Department Center 07/14/2024 Mia-FLORY PRUITT [facility] Family History Problem Relation Age of Onset Hypertension Mother Hypertension Father Family Status - Relation Status Age at Mother Father Level of Service:28771 DE OFFICE/OUTPATIENT ESTABLISHED MOD MDM 30 MIN Reason for Visit and Comments: Follow-up [560241] Normal [facility] ALL CBC WITH AUTO DIFFon BASOPHILS ABSOLUTE AUTO [facility] Basophils/100 WBC (Bld) 0.9 % 0.2 - 2.0 % [facility] Eosinophils/100 WBC (Bld) 3.5 % 0.9 - 7.0 % [facility] Erythrocyte distribution width (RBC) [Ratio] 13.4 % 11.0 - 15.0 % [facility] Hematocrit (Bld) [Volume fraction] 36.5 % 36.0 - 48.0 % [facility] Hemoglobin (Bld) [Mass/Vol] 12 g/dL 12.0 - 16.0 g/dL [facility] IMMATURE GRANULOCYTES ABS AUTO 0.02 [facility] Immature granulocytes/100 WBC (Bld) 0.2 % 0.0 - 0.5 % [facility] Interpretation and review of laboratory results Abnormal [facility] LYMPHOCYTES ABSOLUTE AUTO 2 [facility] Lymphocytes/100 WBC (Bld) 24.3 % 20.5 - 60.0 % [facility] MCH (RBC) [Entitic mass] 28.8 pg 26.7 - 34.0 pg [facility] MCHC (RBC) [Mass/Vol] 32.9 g/dL 29.9 - 35.2 g/dL [facility] MCV (RBC) [Entitic vol] 87.5 fL 81.0 - 99.0 fL [facility] MONOCYTES ABSOLUTE AUTO 0.7 [facility] Monocytes/100 WBC (Bld) 8.5 % 1.7 - 12.0 % [facility] NEUTROPHILS ABSOLUTE AUTO 5 [facility] Neutrophils/100 WBC (Bld) 62.6 % 43.0 - 75.0 % [facility] Platelet mean volume (Bld) [Entitic vol] 10.5 fL 9.5 - 13.5 fL [facility] TBH EO # 0.3 [facility] PLT 271 [facility] TB RBC 4.17 Low [facility]H WBC 8 [facility] ALL SED RATEon 03-23-2024 TBH SED RATE 13 NINF [facility] 29on 03-05-2024 29 Addended by: FELI HURLEY on: 03/05/2024 01:13 PM Modules accepted: Orders Normal [facility] Office Visiton 03-05-2024 Follow-up visit [id number] Sylvia Zavala 1965 F Date Provider Department [place] 03/05/2024 325-FLORY PRUITT [facility] Family History Problem Relation Age of Onset Hypertension Mother Hypertension Father Family Status - Relation Status Age at Mother Father Level of Service:57252 DE OFFICE/OUTPATIENT ESTABLISHED MOD MDM 30 MIN [facility] 36on 01-31-2024 36 Reorder Per Prior Authorization Patients medication needs to go to [facility] [place] [facility]. Medication has been sent [facility] Documentationon 12-25-2023 Documentation [id number] Sylvia Zavala 1965 F Date Provider Department [place] 12/25/2023 3029-PETRONAINGZACHERY [facility] CARD [facility] Family History Problem Relation Age of Onset Hypertension Mother Hypertension Father Family Status - Relation Status Age at Mother Father Reason for Visit and Comments: Prior Authorization [826] - Opsumit Denied Please see note [facility] HPon 12-18-2023 HP H&P reviewed. The patient was examined and there are no changes to the H&P. 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 Will proceed with [facility] for further assessment. Procedure's details, risks and benefits discussed with the patient and she's agreeable. [facility] NURSNOTEon 12-18-2023 NURSNOTE RN educated pt on d/ c instructions. RN encouraged pt to voice any questions or concerns. Pt verbalizes no questions or concerns at this time. Pt was walked off of unit with all of belongings. [facility] CT CHEST WO CONTRASTon 12-14 CT [...] by: Shar Chery MD 12/15/23 Final result [facility] Abstracton 12-05-2023 Abstract [id number] Sylvia Zavala 1965 F Date Provider Department Center 12/05/2023 325-FLORY PRUITT [facility] Family History Problem Relation Age of Onset Hypertension Mother Hypertension Father Family Status - Relation Status Age at Mother Father [facility] 36on 12-04-2023 36 Thank you for the information. We will get this sent to another pharmacy Normal [facility] 12-04-2023 HP - Attestation signed by Flory Pruitt MD at 12/04/2023 11:23 AM I personally saw and examined the patient on the same date of service as resident/fellow Dr. Cortez. I discussed the findings and therapeutic plan with the resident/fellow Dr. Cortez. I agree with the documentation, except for any edits/updates below. Teaching Physician's Revisions: None Subjective Sylvia Zavala is a 58 y.o. [...] (CMS/HCC) Chest pain Coronary artery disease involving choctaw coronary artery of choctaw heart without angina pectoris Deficiency anemia Essential [...] exam H (more content not included)... Normal [facility] Office Visiton 12-04-2023 Follow-up visit [id number] Aldarom,Earlynne 1965 F Date Provider Department Center 12/04/[address] [place] [address] [facility] Family History Problem Relation Age of Onset Hypertension Mother Hypertension Father Family Status - Relation Status Age at Mother Father Level of Service:23696 DE OFFICE/OUTPATIENT ESTABLISHED MOD MDM 30 MIN (GC) Normal [facility] Office Visiton 09-03-2023 Follow-up visit [id number] Sylvia Zavala 1965 F Date Provider Department Center 09/03/[address] Family History Problem Relation Age of Onset Hypertension Mother Hypertension Father Family Status - Relation Status Age at Mother Father Level of Service:77963 DE OFFICE/OUTPATIENT ESTABLISHED MOD MDM 30 MIN Normal [facility] RAD - Ultrasound Reporton RAD - Ultrasound Report [id number]:127 Normal [facility] Ambulatory Visit Summaryon 0 02-04-2023 Ambulatory Visit Summary SYLVIA BASS :1965 Visit Date:02/04/2023 Ambulatory Visit Instructions Your Diagnosis OAB (overactive bladder) Incomplete bladder emptying Personal history of kidney stones Tests Performed Urnls Dip Stick Auto w/o Microscopy POC 17980 Your Care Team Attending Physician - JUNIOR [...] JIMENEZ, Frank Lea Where: [facility] [place] Normal [facility] Patient Educationon 02-05-20 Patient Education Obstetrics and [...] these instructions at home: Medicines ? Take nzyv-lmt-yivxcmy and prescription medicines only as told by [...] provider. Document Revised: 04/05/2021 Document Reviewed: 04/05/2021 [facility] Patient Education ? 2022 freee. Francisco Javier Cisneros [facility] Urology Office/Clinic Noteon 02-04-2023 Urology Office/Clinic Note [...] [facility] [address], [place] [address] [phone] Additional Instructions: Patient Education Acute Urinary Retention, Female I, Oneyda Vallecillo, personally scribed for Dr. Joe on 02/04/2023 10:16:46. . Documentation recorded by the scribeOneyda, accurately reflects the services(s) I performed and [...] vaccine, i (more content not included)... Normal [facility] Comment on above: Result Comment: Elec tronically Signed By: Frank JOE MD\.br\Date and Time Signed: 02/04/23 10:19 EDT\.br\Electronically Co-Signed By: Oneyda Vallecillo\.br\Date and Time Co-Signed: 02/04/23 10:17 EDT CBC AUTO DIFFon 11-06-2022 BASO # 0.1 103/ul Normal 0.0-0.1 [facility] Comment on above: Performed By: #### C BC #### [facility] [address] [address] [address] Stefany Corral Basophils/100 WBC (Bld) 0.7 % Normal 0.2-2.0 [facility] Comment on above: Performed By: #### C BC #### [facility] [address] [address] [address] Stefany Corral EO # 0.3 103/ul Normal 0.0-0.7 [facility] Comment on above: Performed By: #### C BC #### [facility] [address] [place] [address] Dr. Stefany Corral Eosinophils/100 WBC (Bld) 3.0 % Normal 0.9-7.0 [facility] Comment on above: Performed By: #### C BC #### [facility] [address] [place] [address] Dr. Stefany Corral Erythrocyte distribution width (RBC) [Ratio] 15.1 % Critically high 11.0-15.0 [facility] Comment on above: Performed By: #### C BC #### [facility] [address] [place] [address] Dr. Stefany Corral Hematocrit (Bld) [Volume fraction] 36.2 % Normal 36.0-48.0 [facility] Comment on above: Performed By: #### C BC #### [facility] [address] [place] [address] Dr. Stefany Corral Hemoglobin (Bld) [Mass/Vol] 12.0 g/dL Normal 12.0-16.0 [facility] Comment on above: Performed By: #### C BC #### [facility] [address] [place] [address] Dr. Stefany Corral IG # 0.03 10e3/ul Normal 0.00-0.03 [facility] Comment on above: Performed By: #### C BC #### [facility] [address] [place] [address] Dr. Stefany Corral IG % 0.3 % Normal 0.0-0.5 [facility] Comment on above: Performed By: #### C BC #### [facility] [address] [place] [address] Dr. Stefany Corral LYMPH # 2.4 103/ul Normal 1.2-3.8 [facility] Comment on above: Performed By: #### C BC #### [facility] [address] [place] [address] Dr. Stefany Corral Lymphocytes/100 WBC (Bld) 27.4 % Normal 20.5-60.0 [facility] Comment on above: Performed By: #### C BC #### [facility] [address] [place] [address] Dr. Stefany Corral MANUAL DIFF REQ NO Normal [facility] Comment on above: Performed By: #### C BC #### [facility] [address] [place] [address] Dr. Stefany Corral MCH (RBC) [Entitic mass] 28.4 pg Normal 26.7-34.0 [facility] Comment on above: Performed By: #### C BC #### [facility] [address] [place] [address] Dr. Stefany Corral MCHC (RBC) [Mass/Vol] 33.1 g/dL Normal 29.9-35.2 [facility] Comment on above: Performed By: #### C BC #### [facility] [address] [place] [address] Dr. Stefany Corral MCV (RBC) [Entitic vol] 85.6 fL Normal 81.0-99.0 [facility] Comment on above: Performed By: #### C BC #### [facility] [address] [place] [address] Dr. Stefany Corral MONO # 1.0 103/ul Critically high 0.3-0.8 [facility] Comment on above: Performed By: #### C BC #### [facility] [address] [place] [address] Dr. Stefany Corral Monocytes/100 WBC (Bld) 11.2 % Normal 1.7-12.0 [facility] Comment on above: Performed By: #### C BC #### [facility] [address] [place] [address] Dr. Stefany Corral NEUT # 5.0 103/ul Normal 1.4-6.5 [facility] Comment on above: Performed By: #### C BC #### [facility] [address] [place] [address] Dr. Stefany Corral Neutrophils/100 WBC (Bld) 57.4 % Normal 43.0-75.0 [facility] Comment on above: Performed By: #### C BC #### [facility] [address] [address] [address] Stefany Corral Platelet mean volume (Bld) [Entitic vol] 10.0 fL Normal 9.5-13.5 [facility] Comment on above: Performed By: #### C BC #### [facility] [address] [address] [address] Stefany Corral PLT 321 103/ul Normal 150-450 [facility] Comment on above: Performed By: #### C BC #### [facility] [address] [address] [address] Stefany Corral RBC 4.23 106/ul Normal 4.20-5.40 [facility] Comment on above: Performed By: #### C BC #### [facility] [address] [place] [address] Dr. Stefany Corral WBC 8.6 103/ul Normal 4.0-11.0 [facility] Comment on above: Performed By: #### C BC #### [facility] [address] [place] [address] Dr. Stefany Corral CREATININEon 11-06-2022 Creatinine [Mass/Vol] 1.14 mg/dL Critically high 0.55-1.02 [facility] Comment on above: Performed By: #### PETRONA MILAN #### [facility] [address] [place] [address] Dr. Stefany Corral EGFR-AF SERBIAN 59 mL/min/1.73m2 Critically low >=60 [facility] Comment on above: Performed By: #### PETRONA MILAN #### [facility] [address] [place] [address] Dr. Stefany Corral EGFR-NON AF SERBIAN 49 mL/min/1.73m2 Critically low >=60 [facility] Comment on above: Performed By: #### PETRONA MILAN #### [facility] [address] [place] [address] Dr. Stefany Corral LIVER PROFILEon 11-06-2022 Albumin [Mass/Vol] 3.5 g/dL Normal 3.4-5.0 [facility] Comment on above: Performed By: #### L NEEMA, CREA #### [facility] [address] [address] [address] Stefany Corral Albumin/Globulin [Mass ratio] 0.9 {ratio} Normal [facility] Comment on above: Performed By: #### L IVCONSTANTINE, CREA #### [facility] [address] [address] [address] Stefany Corral ALP [Catalytic activity/Vol] 124 U/L Critically high 46-116 [facility] Comment on above: Performed By: #### L IVCONSTANTINE, CREA #### [facility] [address] [address] [address] Stefany Corral ALT [Catalytic activity/Vol] 18 U/L Normal 14-59 [facility] Comment on above: Performed By: #### L NEEMA, CREA #### [facility] [address] [place] [address] Dr. Stefany Corral AST [Catalytic activity/Vol] 16 U/L Normal 15-37 [facility] Comment on above: Performed By: #### L NEEMA CREA #### [facility] [address] [place] [address] Dr. Stefany Corral BILI, CONJUGATED 0.0 mg/dL Normal 0.0-0.2 [facility] Comment on above: Performed By: #### L NEEMA CREA #### [facility] [address] [place] [address] Dr. Stefany Corral Bilirubin [Mass/Vol] 0.2 mg/dL Normal 0.2-1.0 [facility] Comment on above: Performed By: #### L NEEMA CREA #### [facility] [address] [address] [address] Stefany Corral Globulin (S) [Mass/Vol] 4.0 g/dL Normal [facility] Comment on above: Performed By: #### L NEEMA, CREA #### [facility] [address] [address] [address] Stefany Corral Protein [Mass/Vol] 7.5 g/dL Normal 6.4-8.2 [facility] Comment on above: Performed By: #### L PETRONA BETHEA #### [facility] [address] [place] [address] Dr. Stefany Corral SED RATE WESTERGRENon 2022 SED RATE 19 mm/hr Normal <=30 [facility] Comment on above: Performed By: #### S EDR #### [facility] [address] [place] [address] Dr. Stefany Corral CBC AUTO DIFFon 09-11-2022 BASO # 0.1 103/ul Normal 0.0-0.1 [facility] Comment on above: Performed By: #### C BC #### [facility] [address] [place] [address] Dr. Stefany Corral Basophils/100 WBC (Bld) 0.6 % Normal 0.2-2.0 [facility] Comment on above: Performed By: #### C BC #### [facility] [address] [place] [address] Dr. Stefany Corral EO # 0.1 103/ul Normal 0.0-0.7 [facility] Comment on above: Performed By: #### C BC #### [facility] [address] [place] [address] Dr. Stefany Corral Eosinophils/100 WBC (Bld) 1.4 % Normal 0.9-7.0 [facility] Comment on above: Performed By: #### C BC #### [facility] [address] [place] [address] Dr. Stefany Corral Erythrocyte distribution width (RBC) [Ratio] 13.7 % Normal 11.0-15.0 [facility] Comment on above: Performed By: #### C BC #### [facility] [address] [place] [address] Dr. Stefany Corral Hematocrit (Bld) [Volume fraction] 40.2 % Normal 36.0-48.0 [facility] Comment on above: Performed By: #### C BC #### [facility] [address] [place] [address] Dr. Stefany Corral Hemoglobin (Bld) [Mass/Vol] 13.4 g/dL Normal 12.0-16.0 [facility] Comment on above: Performed By: #### C BC #### [facility] [address] [place] [address] Dr. Stefany Corral IG # 0.03 10e3/ul Normal 0.00-0.03 [facility] Comment on above: Performed By: #### C BC #### [facility] [address] [place] [address] Dr. Stefany Corral IG % 0.3 % Normal 0.0-0.5 [facility] Comment on above: Performed By: #### C BC #### [facility] [address] [place] [address] Dr. Stefany Corral LYMPH # 2.4 103/ul Normal 1.2-3.8 [facility] Comment on above: Performed By: #### C BC #### [facility] [address] [place] [address] Dr. Stefany Corral Lymphocytes/100 WBC (Bld) 27.4 % Normal 20.5-60.0 [facility] Comment on above: Performed By: #### C BC #### [facility] [address] [place] [address] Dr. Stefany Corral MANUAL DIFF REQ NO Normal [facility] Comment on above: Performed By: #### C BC #### [facility] [address] [place] [address] Dr. Stefany Corral MCH (RBC) [Entitic mass] 27.5 pg Normal 26.7-34.0 [facility] Comment on above: Performed By: #### C BC #### [facility] [address] [place] [address] Dr. Stefany Corral MCHC (RBC) [Mass/Vol] 33.3 g/dL Normal 29.9-35.2 [facility] Comment on above: Performed By: #### C BC #### [facility] [address] [place] [address] Dr. Stefany Corral MCV (RBC) [Entitic vol] 82.4 fL Normal 81.0-99.0 [facility] Comment on above: Performed By: #### C BC #### [facility] [address] [place] [address] Dr. Stefany Corral MONO # 0.8 103/ul Normal 0.3-0.8 [facility] Comment on above: Performed By: #### C BC #### [facility] [address] [place] [address] Dr. Stefany Corral Monocytes/100 WBC (Bld) 8.6 % Normal 1.7-12.0 [facility] Comment on above: Performed By: #### C BC #### [facility] [address] [place] [address] Dr. Stefany Corral NEUT # 5.5 103/ul Normal 1.4-6.5 [facility] Comment on above: Performed By: #### C BC #### [facility] [address] [place] [address] Dr. Stefany Corral Neutrophils/100 WBC (Bld) 61.7 % Normal 43.0-75.0 [facility] Comment on above: Performed By: #### C BC #### [facility] [address] [place] [address] Dr. Stefany Corral Platelet mean volume (Bld) [Entitic vol] 10.2 fL Normal 9.5-13.5 [facility] Comment on above: Performed By: #### C BC #### [facility] [address] [place] [address] Dr. Stefany Corral PLT 326 103/ul Normal 150-450 [facility] Comment on above: Performed By: #### C BC #### [facility] [address] [place] [address] Dr. Stefany Corral RBC 4.88 106/ul Normal 4.20-5.40 [facility] Comment on above: Performed By: #### C BC #### [facility] [address] [place] [address] Dr. Stefany Corral WBC 8.9 103/ul Normal 4.0-11.0 [facility] Comment on above: Performed By: #### C BC #### [facility] [address] [place] [address] Dr. Stefany Corral CREATININEon 09-11-2022 Creatinine [Mass/Vol] 1.34 mg/dL Critically high 0.55-1.02 [facility] Comment on above: Performed By: #### PETRONA MILAN #### [facility] [address] [place] [address] Dr. Stefany Corral EGFR-AF SERBIAN 49 mL/min/1.73m2 Critically low >=60 [facility] Comment on above: Performed By: #### PETRONA MILAN #### [facility] [address] [place] [address] Dr. Stefany Corral EGFR-NON AF SERBIAN 41 mL/min/1.73m2 Critically low >=60 [facility] Comment on above: Performed By: #### PETRONA MILAN #### [facility] [address] [place] [address] Dr. Stefany Corral LIVER PROFILEon 09-11-2022 Albumin [Mass/Vol] 3.8 g/dL Normal 3.4-5.0 [facility] Comment on above: Performed By: #### PETRONA MILAN #### [facility] [address] [place] [address] Dr. Stefany Corral Albumin/Globulin [Mass ratio] 0.9 {ratio} Normal [facility] Comment on above: Performed By: #### CHELSIE MILANA #### [facility] [address] [place] [address] Dr. Stefany Corral ALP [Catalytic activity/Vol] 114 U/L Normal 46-116 [facility] Comment on above: Performed By: #### PETRONA MILAN #### [facility] [address] [place] [address] Dr. Stefany Corral ALT [Catalytic activity/Vol] 12 U/L Critically low 14-59 [facility] Comment on above: Performed By: #### PETRONA MILAN #### [facility] [address] [place] [address] Dr. Stefany Corral AST [Catalytic activity/Vol] 17 U/L Normal 15-37 [facility] Comment on above: Performed By: #### PETRONA MILAN #### [facility] [address] [address] [address] Stefany Corral BILI, CONJUGATED 0.0 mg/dL Normal 0.0-0.2 [facility] Comment on above: Performed By: #### PETRONA MILAN #### [facility] [address] [address] [address] Stefany Corral Bilirubin [Mass/Vol] 0.2 mg/dL Normal 0.2-1.0 [facility] Comment on above: Performed By: #### PETRONA MILAN #### [facility] [address] [address] [address] Stefany Corral Globulin (S) [Mass/Vol] 4.3 g/dL Normal T [facility] Comment on above: Performed By: #### PETRONA MILAN #### [facility] [address] [address] [address] Stefany Corral Protein [Mass/Vol] 8.1 g/dL Normal 6.4-8.2 [facility] Comment on above: Performed By: #### PETRONA MILAN #### [facility] [address] [place] [address] Dr. Stefany Corral SED RATE [facility] 2022 SED RATE 79 mm/hr Critically high <=30 [facility] Comment on above: Performed By: #### S EDR #### [facility] [address] [place] [address] Dr. Stefany Corral XR chest 2V*on 08-13-2022 XR chest 2V* [facility] [place] [address] [place] [address] XRay Report Signed Patient: Sylvia Bass MR#: [id number] : 1965 Acct:[id number] Age/Sex: 57 / F ADM Date: 08/13/22 Loc: XD Room: Type: REG CLI Attending Dr: Giacomo Benitez DPM Copies to: [...] Devonte Platt M.D.08/13/2022 2:42 PM Dictation Location: [facility]--12 Transcribed By: [facility] 08/13/22 1442 Dictated By: Devonte Platt DO 08/13/22 144 Signed By: 08/13/22 1442 Normal [facility] Basic Metabolic Panelon 12-2 Anion gap [Moles/Vol] 15.3 mmol/L High 6.0-15.0 [facility] Comment on above: Order Comment: PT IS NON FASTING Reason for Exam HAV (hallux abducto valgus), left;Metatarsalgia of right michelet Performed By: #### C BC, BMP #### [facility] [address] [place] [address] Calcium [Mass/Vol] 9.2 mg/dL Normal 8.2-10.2 [facility] Comment on above: Order Comment: PT IS NON FASTING Reason for Exam HAV (hallux abducto valgus), left;Metatarsalgia of right michleet Result Comment: PERF ORMED BY: [place] [address] PATHOLOGIST SPECIALIST PHYSICIAN JESUSITA NICHOLE M.D. Performed By: #### C BC, BMP #### [facility] [address] Chloride [Moles/Vol] 98 mmol/L Normal 95-114 [facility] Comment on above: Order Comment: PT IS NON FASTING Reason for Exam HAV (hallux abducto valgus), left;Metatarsalgia of right michelet Performed By: #### C BC, BMP #### [facility] [address] [id number] [facility] CO2 [Moles/Vol] 23.6 mmol/L Normal 22.0-30.0 [facility] Comment on above: Order Comment: PT IS NON FASTING Reason for Exam HAV (hallux abducto valgus), left;Metatarsalgia of right michelet Performed By: #### C BC, BMP #### [facility] [address] Creatinine [Mass/Vol] 1.48 mg/dL High 0.44-1.03 [facility] Comment on above: Order Comment: PT IS NON FASTING Reason for Exam HAV (hallux abducto valgus), left;Metatarsalgia of right michelet Performed By: #### C BC, BMP #### [facility] [address] Estimated GFR ( Shandra 44 [facility] Comment on above: Order Comment: PT IS NON FASTING Reason for Exam HAV (hallux abducto valgus), left;Metatarsalgia of right michelet Result Comment: GFR estimated reference range: According to KDOQI guidelines, <60 ml/min/1.73m2 is sufficient to diagnose a patient with chronic kidney disease. Performed By: #### C BC, BMP #### [facility] [address] [id number] [facility] Estimated GFR (Non- Am 36 [facility] Comment on above: Order Comment: PT IS NON FASTING Reason for Exam HAV (hallux abducto valgus), left;Metatarsalgia of right michelet Performed By: #### C BC, BMP #### [facility] [address] [id number] [facility] Glucose [Mass/Vol] 95 mg/dL Normal 70-100 [facility] Comment on above: Order Comment: PT IS NON FASTING Reason for Exam HAV (hallux abducto valgus), left;Metatarsalgia of right michelet Result Comment: [facility] Glucose Reference Range is dependent on time and content of last meal. Glucose of more than 200 mg/dL in a nonstressed, ambulatory subject supports the diagnosis of Diabetes Mellitus. ADA recommended reference range Performed By: #### C BC, BMP #### [facility] [address] Potassium [Moles/Vol] 3.9 mmol/L Normal 3.5-5.1 [facility] Comment on above: Order Comment: PT IS NON FASTING Reason for Exam HAV (hallux abducto valgus), left;Metatarsalgia of right michelet Performed By: #### C BC, BMP #### [facility] [address] Sodium [Moles/Vol] 133 mmol/L Low 136-146 [facility] Comment on above: Order Comment: PT IS NON FASTING Reason for Exam HAV (hallux abducto valgus), left;Metatarsalgia of right michelet Performed By: #### C BC, BMP #### [facility] [address] Urea nitrogen [Mass/Vol] 29 mg/dL High 9-23 [facility] Comment on above: Order Comment: PT IS NON FASTING Reason for Exam HAV (hallux abducto valgus), left;Metatarsalgia of right michelet Performed By: #### C BC, BMP #### [facility] [address] Basophils Auto (Bld) [#/Vol] Ordered By: Josefa Martinez on 07-25-2022 Basophils (Bld) [#/Vol] 0.0 10*3/uL 0.0-0.2 [facility] Basophils/100 WBC Auto (Bld) Ordered By: Josefa Guzmana on 07-25-2022 Basophils/100 WBC (Bld) 0.4 % . [facility] Complete Blood Count Auto Di ffon 07-25-2022 Basophils (Bld) [#/Vol] 0.0 10*3/uL Normal 0.0-0.2 [facility] Comment on above: Order Comment: Reaso n for Exam HAV (hallux abducto valgus), left;Metatarsalgia of right michelet Result Comment: PERF ORMED BY: [place] [id number] PATHOLOGIST SPECIALIST PHYSICIAN JESUSITA NICHOLE M.D. Performed By: #### C BC, BMP #### [address] Basophils/100 WBC (Bld) 0.4 % Normal . [facility] Comment on above: Order Comment: Reaso n for Exam HAV (hallux abducto valgus), left;Metatarsalgia of right michelet Performed By: #### C BC, BMP #### [address] Eosinophils (Bld) [#/Vol] 0.5 10*3/uL High 0.0-0.45 [facility] Comment on above: Order Comment: Reaso n for Exam HAV (hallux abducto valgus), left;Metatarsalgia of right michelet Performed By: #### C BC, BMP #### [address] Eosinophils/100 WBC (Bld) 6.1 % Normal . [facility] Comment on above: Order Comment: Reaso n for Exam HAV (hallux abducto valgus), left;Metatarsalgia of right michelet Performed By: #### C BC, BMP #### [address] Erythrocyte distribution width (RBC) [Ratio] 14.9 % Normal 11.9-15.3 [facility] Comment on above: Order Comment: Reaso n for Exam HAV (hallux abducto valgus), left;Metatarsalgia of right michelet Performed By: #### C BC, BMP #### [address] Hematocrit (Bld) [Volume fraction] 38.3 % Normal 34.0-46.4 [facility] Comment on above: Order Comment: Reaso n for Exam HAV (hallux abducto valgus), left;Metatarsalgia of right michelet Performed By: #### C BC, BMP #### [address] Hemoglobin (Bld) [Mass/Vol] 12.5 g/dL Normal 11.8-15.4 [facility] Comment on above: Order Comment: Reaso n for Exam HAV (hallux abducto valgus), left;Metatarsalgia of right michelet Performed By: #### C BC, BMP #### [address] Lymphocytes (Bld) [#/Vol] 2.6 10*3/uL Normal 1.00-4.8 [facility] Comment on above: Order Comment: Reaso n for Exam HAV (hallux abducto valgus), left;Metatarsalgia of right michelet Performed By: #### C BC, BMP #### [address] Lymphocytes/100 WBC (Bld) 32.8 % Normal . [facility] Comment on above: Order Comment: Reaso n for Exam HAV (hallux abducto valgus), left;Metatarsalgia of right michelet Performed By: #### C BC, BMP #### [address] MCH (RBC) [Entitic mass] 27.1 pg Normal 24.7-34.3 [facility] Comment on above: Order Comment: Reaso n for Exam HAV (hallux abducto valgus), left;Metatarsalgia of right michelet Performed By: #### C BC, BMP #### [address] MCV (RBC) [Entitic vol] 83.2 fL Normal 80-100 [facility] Comment on above: Order Comment: Reaso n for Exam HAV (hallux abducto valgus), left;Metatarsalgia of right michelet Performed By: #### C BC, BMP #### [address] Mean Corpuscular HGB Conc 32.5 g/dL Normal 32.0-35.0 [facility] Comment on above: Order Comment: Reaso n for Exam HAV (hallux abducto valgus), left;Metatarsalgia of right michelet Performed By: #### C BC, BMP #### [facility] [address] [place] [address] [place] Monocytes (Bld) [#/Vol] 1.0 10*3/uL High 0.0-0.8 [facility] Comment on above: Order Comment: Reaso n for Exam HAV (hallux abducto valgus), left;Metatarsalgia of right michelet Performed By: #### C BC, BMP #### [facility] [address] [place] [address] [place] Monocytes/100 WBC (Bld) 12.5 % Normal . [facility] Comment on above: Order Comment: Reaso n for Exam HAV (hallux abducto valgus), left;Metatarsalgia of right michelet Performed By: #### C BC, BMP #### [facility] [address] [place] [address] [place] Neutrophils (Bld) [#/Vol] 3.8 10*3/uL Normal 1.8-7.7 [facility] Comment on above: Order Comment: Reaso n for Exam HAV (hallux abducto valgus), left;Metatarsalgia of right michelet Performed By: #### C BC, BMP #### [facility] [address] [place] [address] [place] Neutrophils/100 WBC (Bld) 48.2 % Normal . [facility] Comment on above: Order Comment: Reaso n for Exam HAV (hallux abducto valgus), left;Metatarsalgia of right michelet Performed By: #### C BC, BMP #### [facility] [address] [place] [address] [place] NRBC% 0.1 /100{WBC} Normal 0-0.5 [facility] Comment on above: Order Comment: Reaso n for Exam HAV (hallux abducto valgus), left;Metatarsalgia of right michelet Performed By: #### C BC, BMP #### [facility] [address] [place] [address] [place] Platelet mean volume (Bld) [Entitic vol] 8.6 fL Normal 6.3-10.7 [facility] Comment on above: Order Comment: Reaso n for Exam HAV (hallux abducto valgus), left;Metatarsalgia of right michelet Performed By: #### C BC, BMP #### [facility] [address] Platelets (Bld) [#/Vol] 257 10*3/uL Normal 150-450 [facility] Comment on above: Order Comment: Reaso n for Exam HAV (hallux abducto valgus), left;Metatarsalgia of right michelet Performed By: #### C BC, BMP #### [facility] [address] RBC (Bld) [#/Vol] 4.60 10*6/uL Normal 3.60-5.00 [facility] Comment on above: Order Comment: Reaso n for Exam HAV (hallux abducto valgus), left;Metatarsalgia of right michelet Performed By: #### C BC, BMP #### [facility] [address] WBC (Bld) [#/Vol] 7.9 10*3/uL Normal 3.8-11.6 [facility] Comment on above: Order Comment: Reaso n for Exam HAV (hallux abducto valgus), left;Metatarsalgia of right michelet Performed By: #### C BC, BMP #### [facility] [address] Creatinine and Glomerular fi ltration rate.predicted panel (S/P/Bld)Ordered By: Josefa Martinez on 07-25-2022 Creatinine [Mass/Vol] 1.48 mg/dL 0.44-1.03 [facility] ECG 12 lead ECGon 07-25-2022 ECG 12 lead ECG [facility] Main [place] [address] [place] [address] Electrocardiograph Report Signed Patient: Sylvia Bass MR#: [id number] : 1965 Acct:[id number] Age/Sex: 57 / F ADM Date: 07/25/22 Loc: Room: Type: [facility] Attending Dr: Josefa Martinez MD [...] Jan Balderrama MD 1 09/25/21 1625 Normal [facility] Eosinophils Auto (Bld) [#/Vo l]Ordered By: Josefa Martinez on 07-25-2022 Eosinophils (Bld) [#/Vol] 0.5 10*3/uL 0.0-0.45 [facility] Eosinophils/100 WBC Auto (Bl d)Ordered By: Josefa Martinez on 07-25-2022 Eosinophils/100 WBC (Bld) 6.1 % . [facility] Erythrocyte distribution wid th Auto (RBC) [Ratio]Ordered By: Josefa Martinez on 07-25-2022 Erythrocyte distribution width (RBC) [Ratio] 14.9 % 11.9-15.3 [facility] Estimated glomerular filtrat ion rate (GFR) non- AmericanOrdered By: Josefa Martinez on 07-25-2022 GFR/1.73 sq M.predicted among non-blacks MDRD (S/P/Bld) [Vol rate/Area] 36 mL/Min [facility] Hematocrit Auto (Bld) [Volum e fraction]Ordered By: Josefa Martinez on 07-25-2022 Hematocrit (Bld) [Volume fraction] 38.3 % 34.0-46.4 [facility] Hemoglobin [Mass/volume] in BloodOrdered By: Josefa Martinez on 07-25-2022 Hemoglobin (Bld) [Mass/Vol] 12.5 g/dL 11.8-15.4 [facility] Leukocytes [#/volume] correc brendan for nucleated erythrocytes in Blood by Automated counOrdered By: Josefa Guzmana on 07-25-2022 WBC corrected for nucl RBC Auto (Bld) [#/Vol] 7.9 10*3/uL 3.8-11.6 [facility] Lymphocytes Auto (Bld) [#/Vo l]Ordered By: Josefa [place] on 07-25-2022 Lymphocytes (Bld) [#/Vol] 2.6 10*3/uL 1.00-4.8 [facility] Lymphocytes/100 WBC Auto (Bl d)Ordered By: Josefa Michelle on 07-25-2022 Lymphocytes/100 WBC (Bld) 32.8 % . [facility] MCH Auto (RBC) [Entitic mass ]Ordered By: Josefa Guzmana on 07-25-2022 MCH (RBC) [Entitic mass] 27.1 pg 24.7-34.3 [facility] MCHC Auto (RBC) [Mass/Vol]Or dered By: Josefa Michelle on 07-25-2022 MCHC (RBC) [Mass/Vol] 32.5 g/dL 32.0-35.0 [facility] MCV Auto (RBC) [Entitic vol] Ordered By: Josefa [place] on 07-25-2022 MCV (RBC) [Entitic vol] 83.2 fL 80-100 [facility] Monocytes Auto (Bld) [#/Vol] Ordered By: [place] on 07-25-2022 Monocytes (Bld) [#/Vol] 1.0 10*3/uL 0.0-0.8 [facility] Monocytes/100 WBC Auto (Bld) Ordered By: Josefa [place] on 07-25-2022 Monocytes/100 WBC (Bld) 12.5 % . [facility] Neutrophils Auto (Bld) [#/Vo l]Ordered By: Josefa Michelle on 07-25-2022 Neutrophils (Bld) [#/Vol] 3.8 10*3/uL 1.8-7.7 [facility] Neutrophils/100 WBC Auto (Bl d)Ordered By: Josefa Martinez on 07-25-2022 Neutrophils/100 WBC (Bld) 48.2 % . [facility] No Panel InformationOrdered By: Josefa Martinez on 07-25-2022 Estimated GFR () 44 mL/Min [facility] Comment on above: GFR estimated refere nce range: According to KDOQI guidelines, <60 ml/min/1.73m2 is sufficient to diagnose a patient with chronic kidney disease. Pharmacy Creatinine Clearance (Chem N/A [facility] Nucleated erythrocytes [Pres ence] in Blood by Automated countOrdered By: Josefa Martinez on 07-25-2022 Nucleated RBC Auto Ql (Bld) 0.1 /100{WBC} 0-0.5 [facility] Platelet mean volume Auto (B ld) [Entitic vol]Ordered By: Josefa Martinez on 07-25-2022 Platelet mean volume (Bld) [Entitic vol] 8.6 fL 6.3-10.7 [facility] Platelets Auto (Bld) [#/Vol] Ordered By: Josefa Martinez on 07-25-2022 Platelets (Bld) [#/Vol] 257 10*3/uL 150-450 [facility] RBC Auto (Bld) [#/Vol]Ordere d By: Josefa Martinez on 07-25-2022 RBC (Bld) [#/Vol] 4.60 10*6/uL 3.60-5.00 [facility] Serum or plasma anion gap de terminationOrdered By: Josefa Martinez on 07-25-2022 Anion gap [Moles/Vol] 15.3 mmol/L 6.0-15.0 [facility] Serum or plasma calcium enma urement (mass/volume)Ordered By: Josefa Martinez on 07-25-2022 Calcium [Mass/Vol] 9.2 mg/dL 8.2-10.2 [facility] Serum or plasma chloride horace surement (moles/volume)Ordered By: Josefa Martinez on 07-25-2022 Chloride [Moles/Vol] 98 mmol/L 95-114 [facility] Serum or plasma glucose enma urement (mass/volume)Ordered By: Josefa Martinez on 07-25-2022 Glucose [Mass/Vol] 95 mg/dL 70-100 [facility] Comment on above: ADA recommended refe [...] on 07-25-2022 Sodium [Moles/Vol] 133 mmol/L 136-146 [facility] Serum or plasma total carbon dioxide measurement (moles/volume)Ordered By: Josefa Martinez on 07-25-2022 CO2 [Moles/Vol] 23.6 mmol/L 22.0-30.0 [facility] Serum or plasma urea nitroge n measurement (mass/volume)Ordered By: Josefa Martinez on 07-25-2022 Urea nitrogen [Mass/Vol] 29 mg/dL - [facility] WBC Auto (Bld) [#/Vol]Ordere d By: Josefa Martinez on 07-25-2022 WBC (Bld) [#/Vol] 7.9 10*3/uL 3.8-11.6 [facility] CBC with Auto Differentialon 06-11-2022 Absolute Eos # 0.11 [facility] Immature Granulocyte 0.00 [facility] Absolute Lymph # 4.52 High [facility] Absolute [place] # 0.95 [facility] Atypical Lymphocytes 2 % [facility] Atypical Lymphocytes Absolute 0.21 k/uL [facility] Basophils (Bld) [#/Vol] 0.11 10*3/uL [facility] Basophils/100 WBC (Bld) 1 % 0 - 2 % [facility] Eosinophils/100 WBC (Bld) 1 % 1 - 4 % [facility] Hematocrit (Bld) [Volume fraction] 35.9 % Low 36.3 - 47.1 % [facility] Hemoglobin (Bld) [Mass/Vol] 11.4 g/dL Low 11.9 - 15.1 g/dL [facility] Immature granulocytes/100 WBC (Bld) 0 % 0 [facility] Interpretation and review of laboratory results Abnormal [facility] Lymphocytes/100 WBC (Bld) 43 % 24 - 43 % [facility] MCH (RBC) [Entitic mass] 27.2 pg 25.2 - 33.5 pg [facility] MCHC (RBC) [Mass/Vol] 31.8 g/dL 28.4 - 34.8 g/dL [facility] MCV (RBC) [Entitic vol] 85.7 fL 82.6 - 102.9 fL [facility] Monocytes/100 WBC (Bld) 9 % 3 - 12 % [facility] Morphology William (Bld) [Interp] Platelet scan shows Normal Platelets [facility] NRBC Automated 0.0 0.0 per 100 WBC [facility] Platelet distribution width (Bld) [Ratio] 13.4 % 11.8 - 14.4 % [facility] Platelet mean volume (Bld) [Entitic vol] 10.3 fL 8.1 - 13.5 fL [facility] Platelets (Bld) [#/Vol] 335 10*3/uL [facility] RBC (Bld) [#/Vol] 4.19 10*6/uL 3.95 - 5.1 1 m/uL [facility] Segmented neutrophils/100 WBC (Bld) 44 % 36 - 65 % [facility] Segs Absolute 4.60 [facility] WBC (Bld) [#/Vol] 10.5 10*3/uL [facility] Creatinineon 06-11-2022 Creatinine [Mass/Vol] 1.82 mg/dL High 0.50 - 0.90 mg/dL [facility] GFR/1.73 sq M.predicted MDRD (S/P/Bld) [Vol rate/Area] 32 mL/min/{1.73_m2} Low - PINF [facility] Comment on above: Effective Apr 30, [...] Interpretation and review of laboratory results Abnormal [facility] Hepatic Function Panelon Albumin [Mass/Vol] 4.3 g/dL 3.5 - 5.2 g/dL [facility] Albumin/Globulin [Mass ratio] 1.5 {ratio} 1.0 - 2.5 [facility] ALP (Bld) [Catalytic activity/Vol] 91 U/L 35 - 104 U/L [facility] ALT [Catalytic activity/Vol] 9 U/L 5 - 33 U/L [facility] AST [Catalytic activity/Vol] 18 U/L NINF - 32 U/L [facility] Bilirubin [Mass/Vol] mg/dL Low 0.3 - 1 .2 mg/dL [facility] Bilirubin, Indirect Can not be calculated 0.00 - 1.00 mg/dL [facility] Bilirubin.indirect [Mass/Vol] mg/dL NINF - 0.31 mg/dL [facility] Interpretation and review of laboratory results Abnormal [facility] Protein [Mass/Vol] 7.2 g/dL 6.4 - 8.3 g/dL [facility] Sedimentation Rateon 022 Sed Rate 15 [facility] CBC with Auto Differentialon 04-11-2022 Absolute Eos # 0.49 High [place] [facility] Absolute Immature Granulocyte 0.04 [facility] Absolute Lymph # 2.85 [facility] Absolute [place] # 0.95 [facility] Basophils (Bld) [#/Vol] 0.07 10*3/uL [facility] Basophils/100 WBC (Bld) 1 % 0 - 2 % [facility] Eosinophils/100 WBC (Bld) 5 % High 1 - 4 % [facility] Hematocrit (Bld) [Volume fraction] 38.5 % 36.3 - 47.1 % [facility] Hemoglobin (Bld) [Mass/Vol] 12.4 g/dL 11.9 - 15.1 g/dL [facility] Immature granulocytes/100 WBC (Bld) 0 % 0 [facility] Interpretation and review of laboratory results Abnormal [facility] Lymphocytes/100 WBC (Bld) 26 % 24 - 43 % [facility] MCH (RBC) [Entitic mass] 27.6 pg 25.2 - 33.5 pg [facility] MCHC (RBC) [Mass/Vol] 32.2 g/dL 28.4 - 34.8 g/dL [facility] MCV (RBC) [Entitic vol] 85.7 fL 82.6 - 102.9 fL [facility] Monocytes/100 WBC (Bld) 9 % 3 - 12 % [facility] NRBC Automated 0.0 0.0 per 100 WBC [facility] Platelet distribution width (Bld) [Ratio] 12.3 % 11.8 - 14.4 % [facility] Platelet mean volume (Bld) [Entitic vol] 11.1 fL 8.1 - 13.5 fL [facility] Platelets (Bld) [#/Vol] 297 10*3/uL [facility] RBC (Bld) [#/Vol] 4.49 10*6/uL 3.95 - 5.1 1 m/uL [facility] Segmented neutrophils/100 WBC (Bld) 59 % 36 - 65 % [facility] Segs Absolute 6.41 [facility] WBC (Bld) [#/Vol] 10.8 10*3/uL [facility] Creatinineon 09-14-2022 Creatinine [Mass/Vol] 2.38 mg/dL High 0.5 - 0.9 mg/dL [facility] GFR 25 mL/min Low 60 - PI NF mL/min [facility] GFR Non- 21 mL/min Low 60 - PINF mL/min [facility] Interpretation and review of laboratory results Abnormal [facility] Hepatic Function Panelon Albumin [Mass/Vol] 4.5 g/dL 3.5 - 5.2 g/dL [facility] Albumin/Globulin [Mass ratio] 1.5 {ratio} 1 - 2.5 [facility] ALP (Bld) [Catalytic activity/Vol] 106 U/L High 35 - 104 U/L [facility] ALT [Catalytic activity/Vol] 16 U/L 5 - 33 U/L [facility] AST [Catalytic activity/Vol] 18 U/L NINF - 32 U/L [facility] Bilirubin [Mass/Vol] 0.2 mg/dL Low 0.3 - 1 .2 mg/dL [facility] Bilirubin, Indirect Can not be calculated 0 - 1 mg/dL [facility] Bilirubin.indirect [Mass/Vol] mg/dL NINF - 0.31 mg/dL [facility] Free PSA/Total PSA [Mass fraction] 7.5 g/dL 6.4 - 8.3 g/dL [facility] Interpretation and review of laboratory results Abnormal [facility] Laboratory - Chemistry and C hemistry - challengeon 04-11-2022 GFR/1.73 sq M.predicted MDRD (S/P/Bld) [Vol rate/Area] [facility] Comment on above: Average GFR for 50-5 9 years old: 93 mL/min/1.73sq m Chronic Kidney Disease: <60 mL/min/1.73sq m Kidney failure: <15 mL/min/1.73sq m eGFR calculated using average adult body mass. Additional eGFR calculator available at: http://www.[employer].Seakeeper/multiple_crcl_2011.htm Stage 1: Some kidney damage normal GFR Stage 2: Mild kidney damage GFR 60-89 Stage 3: Moderate kidney damage GFR 30-59 Stage 4: Severe kidney damage GFR 15-29 Stage 5: Severe kidney damage GFR <15 ESRD - chronic treatment by dialysis or transplant Sedimentation Rateon 022 Sed Rate 12 [facility] CBC with Auto Differentialon 02-15-2022 Absolute Eos # 0.17 [place] [facility] Absolute Immature Granulocyte [facility] Absolute Lymph # 2.35 [facility] Absolute [place] # 0.82 [facility] Basophils (Bld) [#/Vol] 0.04 10*3/uL [facility] Basophils/100 WBC (Bld) 1 % 0 - 2 % [facility] Eosinophils/100 WBC (Bld) 3 % 1 - 4 % [facility] Hematocrit (Bld) [Volume fraction] 36.8 % 36.3 - 47.1 % [facility] Hemoglobin (Bld) [Mass/Vol] 12.1 g/dL 11.9 - 15.1 g/dL [facility] Immature granulocytes/100 WBC (Bld) 0 % 0 [facility] Interpretation and review of laboratory results Abnormal [facility] Lymphocytes/100 WBC (Bld) 43 % 24 - 43 % [facility] MCH (RBC) [Entitic mass] 28.5 pg 25.2 - 33.5 pg [facility] MCHC (RBC) [Mass/Vol] 32.9 g/dL 28.4 - 34.8 g/dL [facility] MCV (RBC) [Entitic vol] 86.8 fL 82.6 - 102.9 fL [facility] Monocytes/100 WBC (Bld) 15 % High 3 - 12 % [facility] NRBC Automated 0.0 0.0 per 100 WBC [facility] Platelet distribution width (Bld) [Ratio] 13.5 % 11.8 - 14.4 % [facility] Platelet mean volume (Bld) [Entitic vol] 10.0 fL 8.1 - 13.5 fL [facility] Platelets (Bld) [#/Vol] 304 10*3/uL [facility] RBC (Bld) [#/Vol] 4.24 10*6/uL 3.95 - 5.1 1 m/uL [facility] Segmented neutrophils/100 WBC (Bld) 38 % 36 - 65 % [facility] Segs Absolute 2.10 [facility] WBC (Bld) [#/Vol] 5.5 10*3/uL [facility] Creatinineon 02-15-2022 Creatinine [Mass/Vol] 1.2 mg/dL High 0.5 - 0.9 mg/dL [facility] GFR 56 mL/min Low 60 - PI NF mL/min [facility] GFR Non- 46 mL/min Low 60 - PINF mL/min [facility] Hepatic Function Panelon Albumin [Mass/Vol] 4.5 g/dL 3.5 - 5.2 g/dL [facility] Albumin/Globulin [Mass ratio] 1.5 {ratio} 1 - 2.5 [facility] ALP (Bld) [Catalytic activity/Vol] 96 U/L 35 - 104 U/L [facility] ALT [Catalytic activity/Vol] 15 U/L 5 - 33 U/L [facility] AST [Catalytic activity/Vol] 25 U/L NINF - 32 U/L [facility] Bilirubin [Mass/Vol] 0.19 mg/dL Low 0.3 - 1 .2 mg/dL [facility] Bilirubin, Indirect Can not be calculated 0 - 1 mg/dL [facility] Bilirubin.indirect [Mass/Vol] mg/dL NINF - 0.31 mg/dL [facility] Free PSA/Total PSA [Mass fraction] 7.6 g/dL 6.4 - 8.3 g/dL [facility] Laboratory - Chemistry and C hemistry - challengeon 02-15-2022 GFR/1.73 sq M.predicted MDRD (S/P/Bld) [Vol rate/Area] [facility] Comment on above: Average GFR for 50-5 9 years old: 93 mL/min/1.73sq m Chronic Kidney Disease: <60 mL/min/1.73sq m Kidney failure: <15 mL/min/1.73sq m eGFR calculated using average adult body mass. Additional eGFR calculator available at: http://www.[employer]/multiple_crcl_2012.htm Stage 1: Some kidney damage normal GFR Stage 2: Mild kidney damage GFR 60-89 Stage 3: Moderate kidney damage GFR 30-59 Stage 4: Severe kidney damage GFR 15-29 Stage 5: Severe kidney damage GFR <15 ESRD - chronic treatment by dialysis or transplant No Panel Informationon 02-15 Interpretation and review of laboratory results Abnormal [facility] [employer] Sedimentation Rateon 022 Sed Rate 23 Psydex Patient Educationon 02-10-20 22 Patient Education Obstetrics [...] Take ove (more content not included)... Normal [facility] Reminderson 02-09-2022 Reminders - From: Lynda Boland To: EU - Recalls Joe; Sent: 02/09/2022 10:23:42 EDT Show up: 12/27/2022 10:23:00 EDT Subject: Recall for Renal US Due Date/Time: 01/26/2023 10:23:00 EDT Reminder/Recall Pleas call and schedule Patient for her SUSAN prior to 02/04/23 follow up. Normal [facility] Urology Office/Clinic Noteon 02-09-2022 Urology Office/Clinic Note [...] JUNIOR JIMENEZ, REYES Connor In [address] [place] [id number] Additional Instructions: w/ renal US Patient Education [...] Comments SARS-CoV-2 (COVID-19) Ad26 vaccine 11/15/2020 Recorded [facility] [employer] Lab Results Ambulatory Point of Care Results Bilirubin Urine Dipstick: Negative (02/09/22 09:55:00) Blood Urine Dipstick: Negative (02/09/22 09:55:00) Glucose Urine Dipstick: Negative (02/09/22 09:55:00) Ketones Urine Dipstick: Negative (02/09/22 09:55:00) Leukocytes Urine Dipstick: (more content not included)... Normal [facility] Comment on above: Result Comment: Elec tronically Signed By: Frank JOE MD\.br\Date and Time Signed: 02/09/22 10:18 EDT\.br\Electronically Co-Signed By: Kayli Garrido.br\Date and Time Co-Signed: 02/09/22 10:16 EDT C3 Complementon 11-27-2021 Complement C3 132 mg/dL 90 - 180 mg/dL [employer] C4 Complementon 11-27-2021 Complement C4 34 mg/dL 10 - 40 mg/dL [facility] - Financial Reconciliation [employer] CT CHEST HIGH RESOLUTIONon 0 11-27-2021 Radiology [...] No significant findings. PN RIS CONSOLIDATED Obinna Traivs MD - 11/27/2021 EXAMINATION: CT IMAGES OF [...] 3. Calcified atheromatous plaque and coronary calcification. [employer] Work Phone: CT CHEST HIGH RESOLUTIONOrde red By: Obinna Travis on 11-27-2021 [employer] Work Phone: No Panel Informationon 11-27 [employer] Urinalysis with Microscopico n 11-27-2021 - [employer] Bacteria, UA 2+ Abnormal None [employer] Bilirubin Urine Negative NEGATIVE [employer] a lth Color, UA Yellow Yellow [employer] Epithelial Cells UA 0 TO 2 [employer] Glucose, Ur Negative NEGATIVE [employer] Interpretation and review of laboratory results Abnormal [facility] Ketones Ql (U) Negative NEGATIVE [facility] Leukocyte esterase Test strip Ql (U) SMALL Abnormal NEGATIVE [facility] Nitrite, Urine Negative NEGATIVE [facility] pH, UA 5.5 [facility] Protein, UA Negative NEGATIVE [facility] RBC, UA None [facility] Specific [place], UA 1.020 [facility] Turbidity UA Clear Clear [facility] Urine Hgb Negative NEGATIVE [facility] Urobilinogen, Urine Normal Normal [facility] WBC, UA [address] [facility] CBC with Auto Differentialon 10-03-2021 Absolute Eos # 0.39 [facility] Absolute Immature Granulocyte 0.04 [facility] Absolute Lymph # 2.70 [facility] alth Absolute [place] # 0.91 [facility] lth Basophils (Bld) [#/Vol] 0.08 10*3/uL [facility] Basophils/100 WBC (Bld) 1 % 0 - 2 % [facility] Eosinophils/100 WBC (Bld) 4 % 1 - 4 % [facility] Hematocrit (Bld) [Volume fraction] 35.9 % Low 36.3 - 47.1 % [facility] Hemoglobin.gastrointest inal spec 1 Ql (Stl) 11.4 g/dL Low 11.9 - 15.1 g/dL [facility] Immature granulocytes/100 WBC (Bld) 0 % 0 [facility] Interpretation and review of laboratory results Abnormal [facility] Lymphocytes/100 WBC (Bld) 27 % 24 - 43 % [facility] MCH (RBC) [Entitic mass] 28.2 pg 25.2 - 33.5 pg [facility] MCHC (RBC) [Mass/Vol] 31.8 g/dL 28.4 - 34.8 g/dL [facility] MCV (RBC) [Entitic vol] 88.9 fL 82.6 - 102.9 fL [facility] Monocytes/100 WBC (Bld) 9 % 3 - 12 % [facility] NRBC Automated 0.0 0.0 per 100 WBC [facility] Platelet distribution width (Bld) [Ratio] 14.7 % High 11.8 - 14.4 % [facility] Platelet mean volume (Bld) [Entitic vol] 10.5 fL 8.1 - 13.5 fL [facility] Platelets (Bld) [#/Vol] 327 10*3/uL [facility] RBC (Bld) [#/Vol] 4.04 10*6/uL 3.95 - 5.1 1 m/uL [facility] Segmented neutrophils/100 WBC (Bld) 59 % 36 - 65 % [facility] Segs [facility] [#/Vol] 10.2 10*3/uL [facility] Creatinineon 10-03-2021 Creatinine [Mass/Vol] 1.24 mg/dL High 0.50 - 0.90 mg/dL [facility] GFR 54 mL/min Low >60 [facility] GFR Non- 45 mL/min Low >60 [facility] Interpretation and review of laboratory results Abnormal [facility] Hepatic Function Panelon Albumin [Mass/Vol] 4.2 g/dL 3.5 - 5.2 g/dL [facility] Albumin/Globulin [Mass ratio] 1.4 {ratio} [facility] ALP (Bld) [Catalytic activity/Vol] 113 U/L High 35 - 104 U/L [facility] ALT [Catalytic activity/Vol] 11 U/L 5 - 33 U/L [facility] AST [Catalytic activity/Vol] 22 U/L <32 [facility] Bilirubin [Mass/Vol] mg/dL Low 0.3 - 1 .2 mg/dL [facility] Bilirubin, Indirect Can not be calculated 0.00 - 1.00 mg/dL [facility] Bilirubin.indirect [Mass/Vol] mg/dL <0.31 mg/dL [facility] Free PSA/Total PSA [Mass fraction] 7.1 g/dL 6.4 - 8.3 g/dL [facility] Interpretation and review of laboratory results Abnormal [facility] Laboratory - Chemistry and C hemistry - challengeon 10-03-2021 GFR/1.73 sq M.predicted MDRD (S/P/Bld) [Vol rate/Area] [facility] Comment on above: Average GFR for 50-5 9 years old: 93 mL/min/1.73sq m Chronic Kidney Disease: <60 mL/min/1.73sq m Kidney failure: <15 mL/min/1.73sq m eGFR calculated using average adult body mass. Additional eGFR calculator available at: http://www.globalrph.com/multiple_crcl_2011.htm Stage 1: Some kidney damage normal GFR Stage 2: Mild kidney damage GFR 60-89 Stage 3: Moderate kidney damage GFR 30-59 Stage 4: Severe kidney damage GFR 15-29 Stage 5: Severe kidney damage GFR <15 ESRD - chronic treatment by dialysis or transplant Sedimentation Rateon 022 Sed Rate 18 mm 0 - 30 mm Bubbli CBC Auto DifferentialOrdered By: Vinicius Bullock on 05-30-2021 Absolute Eos # 0.17 [employer] [facility] Work Phone: Absolute Immature Granulocyte 0.05 [employer] Work Phone: Absolute Lymph # 2.36 [employer] [facility] Work Phone: Absolute [place] # 0.75 [employer] [facility] Work Phone: Basophils (Bld) [#/Vol] 0.06 10*3/uL [employer] Work Phone: Basophils/100 WBC (Bld) 1 % 0 - 2 % [facility] Work Phone: Differential Type NOT REPORTED [employer] Phone: Eosinophils/100 WBC (Bld) 2 % 1 - 4 % [employer] Phone: Hematocrit (Bld) [Volume fraction] 37.1 % 36.3 - 47.1 % [employer] Phone: Hemoglobin.gastrointest inal spec 1 Ql (Stl) 12.0 g/dL 11.9 - 15.1 g/dL [employer] Phone: Immature granulocytes/100 WBC (Bld) 1 % High 0 [employer] Phone: Interpretation and review of laboratory results Abnormal [employer] Phone: Lymphocytes/100 WBC (Bld) 22 % Low 24 - 43 % [employer] Phone: MCH (RBC) [Entitic mass] 27.8 pg 25.2 - 33.5 pg [employer] Phone: MCHC (RBC) [Mass/Vol] 32.3 g/dL 28.4 - 34.8 g/dL [employer] Phone: MCV (RBC) [Entitic vol] 86.1 fL 82.6 - 102.9 fL [employer] Phone: Monocytes/100 WBC (Bld) 7 % 3 - 12 % [facility] Phone: NRBC Automated 0.0 0.0 per 100 WBC [employer] Phone: Platelet distribution width (Bld) [Ratio] 13.9 % 11.8 - 14.4 % [employer] Phone: Platelet Estimate NOT REPORTED [employer] Phone: Platelet mean volume (Bld) [Entitic vol] 10.3 fL 8.1 - 13.5 fL [employer] Phone: Platelets (Bld) [#/Vol] 316 10*3/uL [employer] Phone: RBC (Bld) [#/Vol] 4.31 10*6/uL 3.95 - 5.1 1 m/uL [employer] Phone: RBC (Bld) [#/Vol] NOT REPORTED [employer] Phone: Segmented neutrophils/100 WBC (Bld) 67 % High 36 - 65 % [employer] Systems Phone: Segs Absolute 7.58 [employer] Work Phone: WBC (Bld) [#/Vol] 11.0 10*3/uL [employer] Phone: WBC (Bld) [#/Vol] NOT REPORTED [employer] Phone: [employer] Phone: Creatinine, SerumOrdered By: Vinicius Bullock on 05-30-2021 Creatinine [Mass/Vol] 1.22 mg/dL High 0.50 - 0.90 mg/dL [employer] Phone: GFR 55 mL/min Low >60 [employer] Phone: GFR Non- 45 mL/min Low >60 [employer] Phone: Interpretation and review of laboratory results Abnormal [employer] Phone: [employer] Phone: Hepatic Function PanelOrdere d By: Vinicius Bullock on 05-30-2021 Albumin [Mass/Vol] 4.4 g/dL 3.5 - 5.2 g/dL [employer] Phone: Albumin/Globulin [Mass ratio] 1.4 {ratio} [employer] Phone: ALP (Bld) [Catalytic activity/Vol] 98 U/L 35 - 104 U/L [employer] Phone: ALT [Catalytic activity/Vol] 15 U/L 5 - 33 U/L [employer] Phone: AST [Catalytic activity/Vol] 24 U/L <32 [employer] Phone: Bilirubin [Mass/Vol] mg/dL Low 0.3 - 1 .2 mg/dL [employer] Phone: Bilirubin, Indirect CANNOT BE CALCULATED 0.00 - 1.00 mg/dL [employer] Phone: Bilirubin.indirect [Mass/Vol] mg/dL <0.31 mg/dL [employer] Phone: Free PSA/Total PSA [Mass fraction] 7.5 g/dL 6.4 - 8.3 g/dL [employer] Phone: Globulin NOT REPORTED 1.5 - 3.8 g/dL [employer] Phone: Interpretation and review of laboratory results Abnormal [employer] Work Phone: [facility] Phone: Laboratory - Chemistry and C hemistry - challengeOrdered By: Vinicius Bullock on 05-30-2021 GFR/1.73 sq M.predicted MDRD (S/P/Bld) [Vol rate/Area] [facility] Work Phone: Comment on above: Average GFR for 50-5 9 years old: 93 mL/min/1.73sq m Chronic Kidney Disease: <60 mL/min/1.73sq m Kidney failure: <15 mL/min/1.73sq m eGFR calculated using average adult body mass. Additional eGFR calculator available at: http://www.[employer] Med/multiple_crcl_2012.htm Stage 1: Some kidney damage normal GFR Stage 2: Mild kidney damage GFR 60-89 Stage 3: Moderate kidney damage GFR 30-59 Stage 4: Severe kidney damage GFR 15-29 Stage 5: Severe kidney damage GFR <15 ESRD - chronic treatment by dialysis or transplant Sedimentation RateOrdered By : Vinicius Bullock on 05-30-2021 Interpretation and review of laboratory results Abnormal [facility] Phone: Sed Rate 25 mm High 0 - 20 mm [facility] Work Phone: [facility] Work Phone: CBC Auto DifferentialOrdered By: Vinicius Bullock on 04-04-2021 Absolute Eos # 0.09 [facility] Work Phone: Absolute Immature Granulocyte 0.04 [facility] [employer] Work Phone: Absolute Lymph # 2.65 [facility] He alth Work Phone: Absolute [place] # 0.80 [facility] Hea [facility] Work Phone: Basophils (Bld) [#/Vol] 0.08 10*3/uL [facility] Work Phone: Basophils/100 WBC (Bld) 1 % 0 - 2 % M [employer] Phone: Differential Type NOT REPORTED [employer] Phone: Eosinophils/100 WBC (Bld) 1 % 1 - 4 % [employer] Phone: Hematocrit (Bld) [Volume fraction] 40.0 % 36.3 - 47.1 % [employer] Phone: Hemoglobin.gastrointest inal spec 1 Ql (Stl) 12.9 g/dL 11.9 - 15.1 g/dL [employer] Phone: Immature granulocytes/100 WBC (Bld) 0 % 0 [employer] Phone: Lymphocytes/100 WBC (Bld) 25 % 24 - 43 % [employer] Phone: MCH (RBC) [Entitic mass] 27.4 pg 25.2 - 33.5 pg [employer] Phone: MCHC (RBC) [Mass/Vol] 32.3 g/dL 28.4 - 34.8 g/dL [employer] Phone: MCV (RBC) [Entitic vol] 84.9 fL 82.6 - 102.9 fL [employer] Phone: Monocytes/100 WBC (Bld) 8 % 3 - 12 % M [employer] Phone: NRBC Automated 0.0 0.0 per 100 WBC [employer] Phone: Platelet distribution width (Bld) [Ratio] 14.2 % 11.8 - 14.4 % [employer] Phone: Platelet Estimate NOT REPORTED [employer] Phone: Platelet mean volume (Bld) [Entitic vol] 10.1 fL 8.1 - 13.5 fL [employer] Phone: Platelets (Bld) [#/Vol] 314 10*3/uL [employer] Phone: RBC (Bld) [#/Vol] 4.71 10*6/uL 3.95 - 5.1 1 m/uL [employer] Work Phone: RBC (Bld) [#/Vol] NOT REPORTED [employer] Phone: Segmented neutrophils/100 WBC (Bld) 65 % 36 - 65 % [employer] Work Phone: [employer] Absolute 6[employer]90 [employer] Work Phone: WBC (Bld) [#/Vol] 10.6 10*3/uL [employer] Work Phone: WBC (Bld) [#/Vol] NOT REPORTED [employer] Phone: [employer] Phone: Creatinine, SerumOrdered By: Vinicius Bullock on 04-04-2021 Creatinine [Mass/Vol] 1.47 mg/dL High 0.50 - 0.90 mg/dL [employer] Phone: GFR 45 mL/min Low >60 [employer] Phone: GFR Non- 37 mL/min Low >60 [employer] Phone: Interpretation and review of laboratory results Abnormal [employer] Phone: [employer] Phone: Hepatic Function PanelOrdere d By: Vinicius Bullock on 04-04-2021 Albumin [Mass/Vol] 4.2 g/dL 3.5 - 5.2 g/dL [employer] Phone: Albumin/Globulin [Mass ratio] 1.4 {ratio} [employer] Phone: ALP (Bld) [Catalytic activity/Vol] 95 U/L 35 - 104 U/L [employer] Work Phone: ALT [Catalytic activity/Vol] 14 U/L 5 - 33 U/L [employer] Phone: AST [Catalytic activity/Vol] 24 U/L <32 [employer] Phone: Bilirubin [Mass/Vol] mg/dL Low 0.3 - 1 .2 mg/dL [employer] Phone: Bilirubin, Indirect CANNOT BE CALCULATED 0.00 - 1.00 mg/dL [employer] Phone: Bilirubin.indirect [Mass/Vol] mg/dL <0.31 mg/dL [employer] Phone: Free PSA/Total PSA [Mass fraction] 7.2 g/dL 6.4 - 8.3 g/dL [employer] Phone: Globulin NOT REPORTED 1.5 - 3.8 g/dL [employer] Phone: Interpretation and review of laboratory results Abnormal [employer] Phone: [employer] Phone: Laboratory - Chemistry and C hemistry - challengeOrdered By: Vinicius Bullock on 04-04-2021 GFR/1.73 sq M.predicted MDRD (S/P/Bld) [Vol rate/Area] [employer] Phone: Comment on above: Average GFR for 50-5 9 years old: 93 mL/min/1.73sq m Chronic Kidney Disease: <60 mL/min/1.73sq m Kidney failure: <15 mL/min/1.73sq m eGFR calculated using average adult body mass. Additional eGFR calculator available at: http://www.[employer].Seakeeper/multiple_crcl_2012.htm Stage 1: Some kidney damage normal GFR Stage 2: Mild kidney damage GFR 60-89 Stage 3: Moderate kidney damage GFR 30-59 Stage 4: Severe kidney damage GFR 15-29 Stage 5: Severe kidney damage GFR <15 ESRD - chronic treatment by dialysis or transplant Sedimentation RateOrdered By : Vinicius Bullock on 04-04-2021 Sed Rate 13 mm 0 - 20 mm [employer] Phone: [employer] Phone: XR ABDOMEN (KUB) (SINGLE AP VIEW)Ordered By: Frank Joe on 02-21-2021 Unremarkable abdominal radiographs without acute abnormality. [employer] Phone: EXAMINATION: ONE SUPINE XRAY VIEW(S) OF THE ABDOMEN 02/21/2021 7:33 am COMPARISON: Abdominal radiographs performed 11/10/2019. HISTORY: ORDERING SYSTEM PROVIDED HISTORY: Urinary urgency FINDINGS: There is a nonobstructive bowel gas pattern. There is no intraperitoneal free air. There are no suspicious calcifications. Stable phleboliths are seen in the pelvis. There is no acute osseous abnormality. The surrounding soft tissues are unremarkable. [employer] Phone: Hector, pn Incoming Radiant Results From Exo/Snapd App - 02/21/2021 8:40 AM EDT EXAMINATION: ONE [...] IMPRESSION: Unremarkable abdominal radiographs without acute abnormality. [employer] Phone: [employer] Work Phone: CBC Auto DifferentialOrdered By: Vinicius Bullock on 02-07-2021 Absolute Eos # 0.41 [employer] [facility] Work Phone: Absolute Immature Granulocyte 0.05 [employer] Work Phone: Absolute Lymph # 2.39 [employer] alth Work Phone: Absolute [place] # 0.91 [employer] [facility] Work Phone: Basophils (Bld) [#/Vol] 0.08 10*3/uL [employer] Work Phone: Basophils/100 WBC (Bld) 1 % 0 - 2 % M [employer] Phone: Differential Type NOT REPORTED [employer] Phone: Eosinophils/100 WBC (Bld) 4 % 1 - 4 % [employer] Phone: Hematocrit (Bld) [Volume fraction] 36.4 % 36.3 - 47.1 % [employer] Phone: Hemoglobin.gastrointest inal spec 1 Ql (Stl) 11.2 g/dL Low 11.9 - 15.1 g/dL [employer] Phone: Immature granulocytes/100 WBC (Bld) 1 % High 0 [employer] Phone: Interpretation and review of laboratory results Abnormal [employer] Phone: Lymphocytes/100 WBC (Bld) 26 % 24 - 43 % [employer] Phone: MCH (RBC) [Entitic mass] 27.0 pg 25.2 - 33.5 pg [employer] Phone: MCHC (RBC) [Mass/Vol] 30.8 g/dL 28.4 - 34.8 g/dL [employer] Phone: MCV (RBC) [Entitic vol] 87.7 fL 82.6 - 102.9 fL [employer] Phone: Monocytes/100 WBC (Bld) 10 % 3 - 12 % M [employer] Work Phone: NRBC Automated 0.0 0.0 per 100 WBC [employer] Phone: Platelet distribution width (Bld) [Ratio] 14.5 % High 11.8 - 14.4 % [employer] Phone: Platelet Estimate NOT REPORTED [employer] Phone: Platelet mean volume (Bld) [Entitic vol] 10.0 fL 8.1 - 13.5 fL [employer] Phone: Platelets (Bld) [#/Vol] 390 10*3/uL [employer] Phone: RBC (Bld) [#/Vol] 4.15 10*6/uL 3.95 - 5.1 1 m/uL [employer] Phone: RBC (Bld) [#/Vol] NOT REPORTED [employer] Phone: Segmented neutrophils/100 WBC (Bld) 58 % 36 - 65 % [employer] Phone: Segs Absolute 5.47 [employer] Work Phone: WBC (Bld) [#/Vol] 9.3 10*3/uL [employer] Phone: WBC (Bld) [#/Vol] NOT REPORTED [employer] Phone: [employer] Phone: Creatinine, SerumOrdered By: Vinicius Bullock on 02-07-2021 Creatinine [Mass/Vol] 1.25 mg/dL High 0.50 - 0.90 mg/dL [employer] Phone: GFR 54 mL/min Low >60 [employer] Phone: GFR Non- 44 mL/min Low >60 [employer] Phone: Interpretation and review of laboratory results Abnormal [employer] Phone: [employer] Phone: Hepatic Function PanelOrdere d By: Vinicius Bullock on 02-07-2021 Albumin [Mass/Vol] 4 g/dL 3.5 - 5.2 g/dL [employer] Phone: Albumin/Globulin [Mass ratio] 1.1 {ratio} [employer] Phone: ALP (Bld) [Catalytic activity/Vol] 95 U/L 35 - 104 U/L [employer] Phone: ALT [Catalytic activity/Vol] 13 U/L 5 - 33 U/L [employer] Phone: AST [Catalytic activity/Vol] 22 U/L <32 [employer] Phone: Bilirubin [Mass/Vol] mg/dL Low 0.3 - 1 .2 mg/dL [employer] Phone: Bilirubin, Indirect CANNOT BE CALCULATED 0.00 - 1.00 mg/dL [employer] Phone: Bilirubin.indirect [Mass/Vol] mg/dL <0.31 mg/dL [employer] Phone: Free PSA/Total PSA [Mass fraction] 7.5 g/dL 6.4 - 8.3 g/dL [employer] Phone: Globulin NOT REPORTED 1.5 - 3.8 g/dL [employer] Phone: Interpretation and review of laboratory results Abnormal [employer] Phone: [employer] Phone: Laboratory - Chemistry and C hemistry - challengeOrdered By: Vinicius Bullock on 02-07-2021 GFR/1.73 sq M.predicted MDRD (S/P/Bld) [Vol rate/Area] [employer] Phone: Comment on above: Average GFR for 50-5 9 years old: 93 mL/min/1.73sq m Chronic Kidney Disease: <60 mL/min/1.73sq m Kidney failure: <15 mL/min/1.73sq m eGFR calculated using average adult body mass. Additional eGFR calculator available at: http://www.[employer] Med/multiple_crcl_2012.htm Stage 1: Some kidney damage normal GFR Stage 2: Mild kidney damage GFR 60-89 Stage 3: Moderate kidney damage GFR 30-59 Stage 4: Severe kidney damage GFR 15-29 Stage 5: Severe kidney damage GFR <15 ESRD - chronic treatment by dialysis or transplant Sedimentation RateOrdered By : Vinicius Bullock on 02-07-2021 Interpretation and review of laboratory results Abnormal [employer] Phone: Sed Rate 62 mm High 0 - 20 mm [employer] Work Phone: [employer] Work Phone: CBC Auto DifferentialOrdered By: Vinicius Bullock on 12-13-2020 Absolute Eos # 0.30 [employer] [facility] Work Phone: Absolute Immature Granulocyte 0.08 [employer] Work Phone: Absolute Lymph # 2.93 [employer] [facility] alth Work Phone: Absolute [place] # 1.04 [employer] [facility] Work Phone: Basophils (Bld) [#/Vol] 0.08 10*3/uL [employer] Work Phone: Basophils/100 WBC (Bld) 1 % 0 - 2 % M [employer] Phone: Differential Type NOT REPORTED [employer] Phone: Eosinophils/100 WBC (Bld) 2 % 1 - 4 % [employer] Phone: Hematocrit (Bld) [Volume fraction] 37.6 % 36.3 - 47.1 % [employer] Phone: Hemoglobin.gastrointest inal spec 1 Ql (Stl) 12.0 g/dL 11.9 - 15.1 g/dL [employer] Phone: Immature granulocytes/100 WBC (Bld) 1 % High 0 [employer] Work Phone: Interpretation and review of laboratory results Abnormal [employer] Phone: Lymphocytes/100 WBC (Bld) 21 % Low 24 - 43 % [employer] Phone: MCH (RBC) [Entitic mass] 27.8 pg 25.2 - 33.5 pg [employer] Phone: MCHC (RBC) [Mass/Vol] 31.9 g/dL 28.4 - 34.8 g/dL [employer] Phone: MCV (RBC) [Entitic vol] 87.0 fL 82.6 - 102.9 fL [employer] Phone: Monocytes/100 WBC (Bld) 7 % 3 - 12 % M [facility] Work Phone: NRBC Automated 0.0 0.0 per 100 WBC [employer] Phone: Platelet distribution width (Bld) [Ratio] 13.1 % 11.8 - 14.4 % [employer] Phone: Platelet Estimate NOT REPORTED [employer] Phone: Platelet mean volume (Bld) [Entitic vol] 9.7 fL 8.1 - 13.5 fL [employer] Phone: Platelets (Bld) [#/Vol] 345 10*3/uL [employer] Phone: RBC (Bld) [#/Vol] 4.32 10*6/uL 3.95 - 5.1 1 m/uL [employer] Phone: RBC (Bld) [#/Vol] NOT REPORTED [employer] Phone: Segmented neutrophils/100 WBC (Bld) 68 % High 36 - 65 % [employer] Work Phone: [employer] Absolute 9.87 [employer] Work Phone: WBC (Bld) [#/Vol] 14.3 10*3/uL High [employer] Work Phone: WBC (Bld) [#/Vol] NOT REPORTED [employer] Phone: [employer] Phone: Creatinine, SerumOrdered By: Vinicius Bullock on 12-13-2020 Creatinine [Mass/Vol] 1.48 mg/dL High 0.50 - 0.90 mg/dL [employer] Phone: GFR 44 mL/min Low >60 [employer] Phone: GFR Non- 36 mL/min Low >60 [employer] Phone: Interpretation and review of laboratory results Abnormal [employer] Phone: [employer] Phone: Hepatic Function PanelOrdere d By: Vinicius Bullock on 12-13-2020 Albumin [Mass/Vol] 4.2 g/dL 3.5 - 5.2 g/dL [employer] Phone: Albumin/Globulin [Mass ratio] 1.1 {ratio} [employer] Phone: ALP (Bld) [Catalytic activity/Vol] 86 U/L 35 - 104 U/L [employer] Phone: ALT [Catalytic activity/Vol] 12 U/L 5 - 33 U/L [employer] Phone: AST [Catalytic activity/Vol] 21 U/L <32 [employer] Phone: Bilirubin [Mass/Vol] mg/dL Low 0.3 - 1 .2 mg/dL [employer] Phone: Bilirubin, Indirect CANNOT BE CALCULATED 0.00 - 1.00 mg/dL [employer] Phone: Bilirubin.indirect [Mass/Vol] mg/dL <0.31 mg/dL [employer] Phone: Free PSA/Total PSA [Mass fraction] 7.9 g/dL 6.4 - 8.3 g/dL [employer] Phone: Globulin NOT REPORTED 1.5 - 3.8 g/dL [employer] Phone: Interpretation and review of laboratory results Abnormal [employer] Phone: [employer] Phone: Laboratory - Chemistry and C hemistry - challengeOrdered By: Vinicius Bullock on 12-13-2020 GFR/1.73 sq M.predicted MDRD (S/P/Bld) [Vol rate/Area] [employer] Phone: Comment on above: Average GFR for 50-5 9 years old: 93 mL/min/1.73sq m Chronic Kidney Disease: <60 mL/min/1.73sq m Kidney failure: <15 mL/min/1.73sq m eGFR calculated using average adult body mass. Additional eGFR calculator available at: http://www.[employer]one[employer] Med/Signadyne_crcl_2012.htm Stage 1: Some kidney damage normal GFR Stage 2: Mild kidney damage GFR 60-89 Stage 3: Moderate kidney damage GFR 30-59 Stage 4: Severe kidney damage GFR 15-29 Stage 5: Severe kidney damage GFR <15 ESRD - chronic treatment by dialysis or transplant Sedimentation RateOrdered By : Vinicius Bullock on 12-13-2020 Interpretation and review of laboratory results Abnormal [employer] Phone: Sed Rate 54 mm High 0 - 20 mm [employer] Phone: [employer] Phone: CBC Auto Differentialon 09-26 Basophils (Bld) [#/Vol] 0.06 10*3/uL [employer] Phone: Basophils/100 WBC (Bld) 1 % 0 - 2 % M [facility] Phone: Differential Type NOT REPORTED [employer] Phone: Eosinophils (Bld) [#/Vol] 0.33 10*3/uL [employer] Phone: Eosinophils/100 WBC (Bld) 4 % 1 - 4 % [employer] Phone: Erythrocyte distribution width (RBC) [Ratio] 13.3 % 11.8 - 14.4 % [employer] Phone: Hematocrit (Bld) [Volume fraction] 39.0 % 36.3 - 47.1 % [employer] Phone: Hemoglobin (Bld) [Mass/Vol] 12.3 g/dL 11.9 - 15.1 g/dL [employer] Phone: Immature granulocytes (Bld) [#/Vol] 0 % 0 [employer] Phone: Immature granulocytes (Bld) [#/Vol] 0.04 10*3/uL [employer] Phone: Lymphocytes (Bld) [#/Vol] 2.45 10*3/uL [employer] Phone: Lymphocytes/100 WBC (Bld) 27 % 24 - 43 % [facility] Phone: MCH (RBC) [Entitic mass] 27.8 pg 25.2 - 33.5 pg [employer] Phone: MCHC (RBC) [Mass/Vol] 31.5 g/dL 28.4 - 34.8 g/dL [employer] Phone: MCV (RBC) [Entitic vol] 88.2 fL 82.6 - 102.9 fL [employer] Phone: Monocytes (Bld) [#/Vol] 0.79 10*3/uL [employer] Phone: Monocytes/100 WBC (Bld) 9 % 3 - 12 % M [facility] Phone: Platelet mean volume (Bld) [Entitic vol] 10.4 fL 8.1 - 13.5 fL [employer] Phone: Platelets (Bld) [#/Vol] 284 10*3/uL [employer] Phone: Platelets (Bld) [#/Vol] NOT REPORTED [employer] Phone: RBC (Bld) [#/Vol] 4.42 10*6/uL 3.95 - 5.1 1 m/uL [employer] Phone: RBC morphology finding Nom (Bld) NOT REPORTED [employer] Phone: Segmented neutrophils/100 WBC (Bld) 59 % 36 - 65 % [employer] Phone: Segs Absolute 5.38 [employer] Work Phone: WBC (Bld) [#/Vol] 9.1 10*3/uL [employer] Phone: WBC (Bld) [#/Vol] 0.0 10*3/uL 0.0 per 10 0 WBC [employer] Phone: WBC Morphology NOT REPORTED [employer] Work Phone: Creatinine, Serumon 10-14-19 Creatinine [Mass/Vol] 1.45 mg/dL High 0.50 - 0.90 mg/dL [employer] Phone: GFR 45 mL/min Low >60 [employer] Phone: GFR Non- 37 mL/min Low >60 [employer] Phone: Interpretation and review of laboratory results Abnormal [employer] Phone: Hepatic Function Panelon Albumin [Mass/Vol] 4.5 g/dL 3.5 - 5.2 g/dL [employer] Phone: Albumin/Globulin [Mass ratio] 1.3 {ratio} [employer] Phone: ALP [Catalytic activity/Vol] 93 U/L 35 - 104 U/L [employer] Phone: ALT [Catalytic activity/Vol] 12 U/L 5 - 33 U/L [employer] Phone: AST [Catalytic activity/Vol] 21 U/L <32 [employer] Phone: Bilirubin Ql (U) <0.10 Low 0.3 - 1.2 mg/dL [employer] Phone: Bilirubin, Indirect CANNOT BE CALCULATED 0.00 - 1.00 mg/dL [employer] Phone: Bilirubin.direct [Mass/Vol] mg/dL <0.31 mg/dL [employer] Phone: Globulin (S) [Mass/Vol] NOT REPORTED 1.5 - 3.8 g/dL [employer] Phone: Interpretation and review of laboratory results Abnormal [employer] Phone: Protein [Mass/Vol] 7.9 g/dL 6.4 - 8.3 g/dL [employer] Phone: Metabolic Panelon 10-13-2020 GFR/1.73 sq M predicted among non-blacks MDRD (S/P/Bld) [Vol rate/Area] [employer] Phone: Comment on above: Stage 1: Some [...] body mass. Additional eGFR calculator available at: http://www.[employer].Seakeeper/multiple_crcl_2012.htm Sedimentation Rateon 021 Interpretation and review of laboratory results Abnormal [employer] Phone: Sed Rate 25 mm High 0 - 20 mm [employer] Phone: XR ABDOMEN (KUB) (SINGLE AP VIEW)on 11-10-2019 No definite renal stones are seen. There is a 2-3 mm calcification in the pelvis on the left felt more likely to reflect a phlebolith although a distal left ureteral stone is not entirely excluded. Consider CT as clinically indicated. [facility]: ONE SUPINE XRAY VIEW(S) OF THE [...] intraperitoneal free air. No acute bony abnormalities. [facility] eVenuesW[facility] UNIVERS[facility] MED[facility] CENTERFARZANEH Hector, Mhpn Incoming Radiant Results From Exo/Snapd App - 11/10/2019 8:02 AM EDT EXAMINATION: ONE [...] entirely excluded. Consider CT as clinically indicated. [employer] - Financial Reconciliation eVenuesW[facility] UNIVERS[facility] CENTERFARZANEH FINGER LEFT MIN 2 VWSon 03-29 FINGER LEFT MIN 2 S [facility] [address] [place] [address] Patient Name: SYLVIA GARAY : 1965Sex: FAge: Race: OtherMRN: [id number]. Location: OUTPPatient Status: OVisit #: [id number] Date: 04/15/2017 7:10:00 AMCompleted Date: 04/15/2017 08:31 AMRequesting Provider: OREN LOPES Attending Provider: OREN LOPES Report Copy To: Signs & Symptoms: LT THUMB IP FUSIONHistory: LT THUMB IP FUSIONComments: LT THUMB IP FUSIONExam: FINGER LEFT MIN 2 VWSAccession #: [id number] FIN SEAN LEFT MIN 2 VWS 04/15/2017 8:31 AM EDT SIGNS AND SYMPTOMS: LT THUMB IP FUSION lt thumb IP fusion fluoro time 22 secs TECHNIQUE: Intraprocedural fluoroscopy without radiologist supervision or interpretation. Electronically signed by:Mervin Rios M.D.. Transcribed by: [email or web address], User Resident: Electronically Signed by: MERVIN RIOS @ 04/15/2017 10:35 AM Normal [facility] Comment on above: Order Comment: LT TH UMB IP FUSION Operative Reporton 7 Operative Report MR#: [id number] [facility] Pt. Name: Sylvia Garay Room #: 0C Discharge Date: Birthdate: 1965 OPERATIVE REPORTDATE OF SURGERY: 04/15/2017SURGEON: Oren Lopes M.D.PREOPERATIVE DIAGNOSIS: Degenerative osteoarthritis, left thumb IP joint.POSTOPERATIVE DIAGNOSIS: Degenerative osteoarthritis, left thumb IPjoint.PROCEDURE: IP joint fusion, left thumb.DELIVERY SALES WORKER: Cain Jean M.D.ANESTHESIA: Regional with an axillary block.INDICATION FOR SURGERY: Sylvia is a 51-year-old female who [facility] of pain and worsening deformityin her left thumb. Clinically, she has about 66-75-krccab ulnar deviationdeformity at the IP joint of [...] prepared andthe thumb was straight with good urml-sm-ojmy contact. We took a guidewirefrom the Arth[employer] [...] extensor mechanism was reapproximated with a couple wjxupipk-hj-yxcps sutures of 4-0 Vicryl. The skin with a buried 4-0 Vicryland then 5-0 Novafil. Sterile dressing of Xeroform gauze, 4x4, fluffs,Araceli, and an William bandage were applied. The tourniquet was released. Allsponge and needle counts were correct at time of closure.Electronicall y Signed by:Oren Lopes M.D. 04/16/2017 12:36 P Jasmin Lopes M.D.Date Dict: 04/15/2017/10:23 A/Oren Lopes M.D.Date Trans: 04/15/2017 10:48 A/VasileN_JN:[id number]: Josefa Martinez M.D. Life Stages 3 [facility] [id number] Normal The [facility] POC GLUCOSE LABon 04-15-2017 Glucose mass conc 100 mg/dL Normal 70-100 The [facility] Comment on above: Performed By: #### [id number] ####[id number] FINGER LEFT MIN 2 VWSon 01-26 FINGER LEFT MIN 2 VWS [facility] [address]lfv[address] [place] [address] Patient Name: SYLVIA GARAY : 1965Sex: FAge: Race: OtherMRN: [id number]. Location: 84Patient Status: OVisit #: [id number] Date: 02/13/2017 9:25:00 AMCompleted Date: 02/13/2017 09:28 AMRequesting Provider: BOB BROWN Attending Provider: BOB BROWN Report Copy To: Signs & Symptoms: S63.125A Dislocation of unsp interphaln joint of left thumb, init A25Jolswda: AthenaComments: , , L thumb , , , Ordering Provider - BOB BROWN , Rendering Provider - BOB BROWN , Exam: FINGER LEFT MIN 2 VWSAccession #: [id number] FIN SEAN LEFT MIN 2 VWS 02/13/2017 [...] change. Electronically signed by:Mervin Epstein. Transcribed by: [email or web address], User Resident: Electronically Signed by: MERVIN EPSTEIN @ 02/13/2017 10:45 AM Normal [facility] Comment on above: Order Comment: , , L thumb , , , Ordering Provider - BOB BROWN , Rendering Provider - BOB BROWN , Vital Signs Date Time Vital Sign Value Performing Clinician Facility 12-16-2023 09:22-0400 Body height 152.4 cm [facility] 12-16-2023 09:22-0400 Body mass index (BMI) [Ratio] 32.4 kg/m2 [facility] 12-16-2023 09:22-0400 Body temperature 97.2 [degF] [facility] 12-16-2023 09:22-0400 Body weight 75.29 kg [facility] 12-16-2023 09:22-0400 Diastolic blood pressure 81 mm[Hg] [facility] 12-16-2023 09:22-0400 Heart rate 73 /min [facility] 12-16-2023 09:22-0400 Respiratory rate 20 /min [facility] 12-16-2023 09:22-0400 SaO2% (BldA) [Mass fraction] 99 % [facility] 12-16-2023 09:22-0400 Systolic blood pressure 113 mm[Hg] [facility] 12-19-2021 09:30-0400 Body height 152.4 cm Candi George Other [employer] Other 12-19-2021 09:30-0400 Body mass index (BMI) [Ratio] 34.37 kg/m2 Candi George Other [employer] Other 12-19-2021 09:30-0400 Body temperature 96.9 [degF] Candi George Other [employer] Other 12-19-2021 09:30-0400 Body weight 79.83 kg Candi George Other [employer] Other 12-19-2021 09:30-0400 Diastolic blood pressure 72 mm[Hg] Candi George Other [employer] Other 12-19-2021 09:30-0400 Respiratory rate 20 /min Candi George Other [employer] Other 12-19-2021 09:30-0400 SaO2% (BldA) [Mass fraction] 99 % Candi George Other [employer] Other 12-19-2021 09:30-0400 Systolic blood pressure 120 mm[Hg] Candi George Other [employer] Other 10-13-2020 14:25-0400 BP Diastolic 89 mm[Hg] Zakiya Knight [employer] Work Phone: 10-13-2020 14:25-0400 BP Systolic 135 mm[Hg] Zakiya Knight [employer] Work Phone: 10-13-2020 14:25-0400 Pulse (Heart Rate) 81 /min Zakiya Knight [employer] Work Phone: 10-13-2020 14:25-0400 Respiratory Rate 16 /min Zakiya Knight [employer] Work Phone: 10-13-2020 14:00-0400 Pulse Oximetry 98 % Zakiya Knight [employer] Work Phone: 10-13-2020 11:130400 BMI (Body Mass Index) 34.76 kg/m2 Zakiya Madrigal [employer] Work Phone: 10-13-2020 11:13040 Body Temperature 98.01 [degF] Zakiya Madrigal [employer] Work Phone: 10-13-2020 11:130400 Body weight 80.74 kg Zakiya Madrigal [employer] Work Phone: Encounters Encounter Date Encounter Type Care Provider Facility Start: 07-14-2024 End: 07-14-2024 ambulatory FLORY Do [facility] Start: 05-25-2024 End: 05-25-2024 Clinisync Result Encounter Generic External Data Provider [facility] External Department Unsolicited Start: 05-25-2024 End: 05-25-2024 Clinisync Result Encounter Generic External Data Provider [facility] External Department Unsolicited Start: 03-23-2024 End: 03-23-2024 Clinisync Result Encounter Generic External Data Provider [facility] External Department Unsolicited Start: 03-23-2024 End: 03-23-2024 Clinisync Result Encounter Generic External Data Provider [facility] External Department Unsolicited Start: 03-05-2024 End: 03-05-2024 ambulatory FLORY Do [facility] Start: 03-04-2024 ambulatory FLORY Do [facility] Start: 02-07-2024 ambulatory Frank Garcia ty:SANDOR Allen Start: 12-26-2023 End: 12-26-2023 ambulatory FLORY Do [facility] Start: 12-18-2023 End: 12-18-2023 ambulatory [facility] Start: 12-16-2023 End: 12-16-2023 ambulatory [facility] Work Phone: Start: 12-16-2023 End: 12-16-2023 Patient encounter procedure [facility]ly [facility] Work Phone: Start: 12-13-2023 End: 12-16-2023 [facility] Start: 12-04-2023 End: 12-04-2023 ambulatory FLORY Do [facility] Start: 09-03-2023 End: 09-03-2023 ambulatory FLORY Do [facility] Start: 08-13-2023 End: 08-13-2023 ambulatory LINK LOUISE Not Available Start: 08-06-2023 Patient encounter status Generic Provider [facility] Start: 08-06-2023 End: 08-06-2023 ambulatory JOSEFA MARTINEZ Not Available Start: 02-04-2023 End: 02-05-2023 ambulatory Frank JOE Facility:[facility] Start: 11-06-2022 End: 11-07-[address] VINICIUS BULLOCK Facility:[facility] Start: 09-11-2022 End: 09-12-[address] VINICIUS BULLOCK Facility:[facility] Start: 08-13-2022 End: 08-13-2022 ambulatory Josefa Martinez Facility:[facility] Start: 08-13-2022 End: 08-13-2022 ambulatory MD Josefa Martinez Work Phone: [facility] Work Phone: Start: 08-13-2022 End: 08-13-2022 Patient encounter procedure MD Josefa Martinez Work Phone: [facility] Work Phone: Start: 07-25-2022 End: 07-25-2022 ambulatory Josefa Martinez Facility:[facility] Start: 07-25-2022 End: 07-25-2022 ambulatory MD Josefa Martinez Work Phone: [facility] Work Phone: Start: 07-25-2022 End: 07-25-2022 Patient encounter procedure MD Josefa Martinez Work Phone: [facility] Work Phone: Start: 06-11-2022 End: 06-11-2022 Subsequent hospital visit by physician Josefa Martinez MD Work Phone: [facility] Start: 04-11-2022 End: 04-11-2022 Subsequent hospital visit by physician Josefa Martinez MD Work Phone: [facility] Start: 02-15-2022 End: 02-15-2022 Subsequent hospital visit by physician Josefa Martinez MD Work Phone: [facility] Start: 02-09-2022 End: 02-10-2022 ambulatory Frank JOE Facility:[facility] Start: 12-19-2021 End: 12-19-2021 ambulatory Candi Bernsteinyonas Other [place] [employer] Other Start: 12-19-2021 Office outpatient visit 15 minutes Candi George [facility] Start: 11-27-2021 End: 11-29-2021 Subsequent hospital visit by physician Apple Pettit Scan Room [facility] Laboratory Comment on above: Pulmonary fibrosis [...] by physician Apple Manriquez Dr Room 2 [facility]iology Comment on above: Urinary urgency Start: 02-07-2021 End: 02-07-2021 Subsequent hospital visit by physician Josefa Martinez Work Phone: [facility] Start: 12-13-2020 End: 12-13-2020 Subsequent hospital visit by physician Josefa Martinez Work Phone: [facility] Start: 10-13-2020 End: 10-13-2020 Emergency department patient visit Zakiya Knight Work Phone: [facility] ED Comment on above: Fall, initial encoun ter (Primary Dx); Abrasion of scalp, initial encounter Start: 10-13-2020 End: 10-13-2020 Subsequent hospital visit by physician Josefa ANG[facility] Start: 11-10-2019 End: 11-12-2019 Subsequent hospital visit by physician Apple Manriquez Dr Room 4 [facility] Radiology Comment on above: Kidney stone Start: 01-27-2018 End: 01-28-2018 Ambulatory DEFAULT PHYSICIAN Facility:[facility] Start: 04-25-2017 End: 04-26-2017 Ambulatory DEFAULT PHYSICIAN Facility:[facility] Start: 04-15-2017 End: 04-16-2017 Ambulatory OREN LOPES Facility:[facility] Start: 02-13-2017 End: 02-14-2017 Ambulatory BOB BROWN Facility:[facility] Procedures Date Procedure Procedure Detail Performing Clinician Start: 07-14-2024 Follow-up visit Follow-up FLORY PRUITT Start: 05-25-2024 ALL CBC WITH AUTO DIFF Generic External Data Provider Start: 03-23-2024 ALL SED RATE Generic Ex ternal Data Provider Start: 08-14-2023 Mammography Generic Pr ovider Start: 08-13-2023 Microscopic observat ion [Identifier] in Cervix by Cyto stain Generic Provider Start: 08-13-2022 Plain chest X-ray MD Syed Martinez Work Phone: Start: 06-11-2022 Creatinine blood Vinicius Bullock MD Work Phone: Start: 06-11-2022 Hepatic function panel Vinicius Bullock MD Work Phone: Start: 04-11-2022 Creatinine blood Vinicius Bullock MD Work Phone: Start: 04-11-2022 Hepatic function panel Vinicius Bullock MD Work Phone: Start: 02-15-2022 Creatinine blood Vinicius Bullock MD Work Phone: Start: 02-15-2022 Hepatic function panel Vinicius Bulolck MD Work Phone: Start: 11-27-2021 Ct thorax [...] exam abdo men 1 view Frank Lea Junior Work Phone: Start: 04-15-2017 ANESTH LOWER ARM SURGERY TENNILLE RODRÍGUEZ Start: 04-15-2017 FUSION OF FINGER JOINT OREN LOPES Plan of Treatment Date Care Activity Detail Author Start: 08-31-2028 DTaP/Tdap/Td vaccine (4 - Td or Tdap) DTaP/Tdap/Td vaccine (4 - Td or Tdap) [facility] Start: 08-31-2028 DTaP/Tdap/Td vaccine (4 - Td) DTaP/Tdap/Td vaccine (4 - Td) [place], [place] Start: 08-19-2026 Screening for malign ant neoplasm of colon [facility] Start: 08-13-2026 Screening for malign ant neoplasm of cervix [facility] Start: 08-14-2024 Screening for malign ant neoplasm of breast Mammogram [facility] Start: 03-29-2024 Influenza vaccination Influenza Vacc ine (#1) [facility] Start: 10-03-2022 Creatinine measurement Creatinine [facility] Start: 05-30-2022 Creatinine measurement Creatinine [facility] Start: 04-04-2022 Creatinine measurement Creatinine mo [facility] [employer] Work Phone: Start: 03-29-2022 Influenza vaccination Flu vaccine (# 1) [facility] Start: 02-26-2022 Influenza vaccination Flu vaccine (# 1) [facility] Start: 02-07-2022 Creatinine measurement Creatinine mo [facility] [employer] Work Phone: Start: 12-13-2021 [facility] Start: 10-13-2021 Creatinine measurement Creatinine mo [facility] [employer] Work Phone: Start: 10-11-2021 COVID-19 Vaccine (4 - Booster for Caden series) COVID-19 Vaccine (4 - Booster for Caden series) [facility] Start: 03-29-2021 Influenza vaccination [facility] Start: 12-22-2020 COVID-19 Vaccine (2 - Booster for Caden series) COVID-19 Vaccine (2 - Booster for Caden series) [facility] Start: 03-29-2020 Influenza vaccination [place], [place] Start: 10-06-2017 Lipid panel [facility] Start: 10-06-2017 Lipid screen Lipid screen [place], [place] Start: 10-23-2016 Creatinine monitoring Creatinine mon itoring [place], [place] Start: 10-23-2016 Potassium [Moles/volume] in Serum or Plasma Potassium [facility] Start: 10-23-2016 Potassium monitoring Potassium monit oring [facility] Start: 03-24-2016 Shingles Vaccine (2 of 3) Shingles Vaccine (2 of 3) [facility] Start: 2014 Breast cancer screen Breast cancer s creen [place], [place] Start: 2014 Colon cancer screen colonoscopy Colon cancer screen colonoscopy [place], [place] Start: 2014 Screening for malign ant neoplasm of breast Breast cancer screen [facility] Start: 2014 Screening for malign ant neoplasm of colon Colon cancer screen colonoscopy [facility] [employer] Work Phone: Start: 08-30-2012 Screening for malign ant neoplasm of colon [facility] Start: 08-31-2011 Screening for malign ant neoplasm of colon Colorectal Cancer Screen [facility] Start: 2009 Screening for malign ant neoplasm of colon [facility] Start: 1994 Screening for malign ant neoplasm of cervix [facility] Start: 1985 Cervical cancer screen Cervical canc er screen [place], [place] Start: 1985 Screening for malign ant neoplasm of cervix [facility] Start: 1982 Hepatitis C screening Hepatitis C sc reen [facility] Start: 1980 COVID-19 Vaccine (1) COVID-19 Vaccin e (1) [facility] [employer] Work Phone: Start: 1979 HIV screen HIV screen [place], [place] Start: 1979 HIV screening HIV screen [facility] Start: 1976 COVID-19 Vaccine (1) COVID-19 Vaccin e (1) [employer] Work Phone: Start: 1976 Depression Screen Depression Screen [facility] [employer] Start: 1964 Hepatitis C screen Hepatitis C vie n [facility] [place], [place] Start: 1964 Hepatitis C screening Hepatitis C sc lyly [facility] [employer] Start: 1964 [facility] malign [facility] Immunizations Immunization Date Immunization Notes Care Provider Fa cility 05-22-2022 influenza, injectabl e, quadrivalent, preservative free Generic Provider [facility] 05-22-2022 influenza virus vaccine, unspecified formulation Generic Provider [facility] 08-16-2021 COVID-19 Moderna Candi Peters n Other [facility] 05-22-2021 influenza, injectabl e, quadrivalent, preservative free Generic Provider [facility] 10-27-2020 SARS-CoV-2, Unspecified Generic [facility] 10-14-2020 COVID-19 Vaccine Caden - Documentation Purposes Only Candi George Other [facility] 05-20-2020 influenza, injectabl e, quadrivalent, preservative free Generic Provider [facility] 08-31-2018 tetanus toxoid, redu huong diphtheria toxoid, and acellular pertussis vaccine, adsorbed Generic Provider [facility] 05-14-2018 influenza, injectabl e, quadrivalent, contains preservative Generic Provider [facility] 10-12-2016 pneumococcal conjuga te vaccine, 13 valent Generic Provider [facility] 10-12-2016 tetanus toxoid, redu huong diphtheria toxoid, and acellular pertussis vaccine, adsorbed Generic Provider [facility] 05-10-2016 influenza, injectabl e, quadrivalent, contains preservative Generic Provider [facility] 01-28-2016 zoster vaccine, live Generic Provide r [facility] 10-19-2015 tetanus toxoid, redu huong diphtheria toxoid, and acellular pertussis vaccine, adsorbed Generic Provider [facility] Payers Date Payer Category Payer [facility] Insurance [facility] [id number] 2022 Unknown 2022 Self-pay [id number] 2019 Unknown FRONTPATH [employer] [facility] xxxxxxxxx 2019-Present [phone] [address] [place] [address] xxxxxxxxx [id number] 2015 Unknown [id number] 1964 Unknown [id number] 1964 Unknown [id number]. [id number] 1964 Unknown [id number]. [id number] 1964 Unknown [id number]. [id number] 1964 Unknown [id number]. [id number] 1964 Unknown [id number]. [id number] 1964 Unknown [id number] [id number] 1964 Unknown [id number]. [id number] 1959 Unknown [id number] Unknown [id number] [id number] Unknown [id number] Social History Date Type Detail Facility Start: 01-29-2013 End: 08-05-2023 Tobacco smoking status NHIS Former smoker [employer] Start: 01-29-2013 End: 05-20-2022 Alcohol intake Current non-drinker of alcohol (finding) [facility] [employer] [place], [place] Start: 1965 [facility]igned At [facility] [place] [place] Start: 10-13-2020 End: 08-05-2023 Tobacco use and exposure Never used [employer] Phone: Start: 05-10-2022 End: 05-20-2022 Exposure to SARS-CoV-2 (event) Not sure [employer] Phone: Start: 08-13-2023 Sex Assigned At N [employer] Other History of tobacco use Current smoker SALLY SANDOVAL [employer] Phone: Start: 1965 Sex Assigned At Female F [facility] History of tobacco use Cigarette Smoker N [facility] Start: 12-19-2023 Alcoholic beverage intake Current drinker of alcohol (finding) [facility] Start: 08-13-2023 History of Social function [facility] Start: 08-05-2023 Tobacco Comment Last smoke: 1-5 year s [facility] Start: 08-05-2023 Alcohol Comment Points: 1, Interpretation: Negative [facility] Clinical Notes 12-19-2021 to 07-14-2024 Note Date & Type Note Facility 07-14-2024 Note Subjective Sylvia Zavala is a 59 y.o. year old female patient being seen for pulmonary arterial hypertension. Patient functional capacity was limited while she was off her medication due to insurance issues. She was started on tadalafil and she is already feeling better. And her Ambrisentan was just approved. She is having stable dyspnea, no chest pain or chest discomfort, no palpitation or dizziness. Patient Active Problem List Diagnosis Arthropathy Atrial fibrillation (CMS/HCC) Chest pain Coronary artery disease involving choctaw coronary artery of choctaw heart without angina pectoris Deficiency anemia Essential [...] remission (CMS/HCC) Stage 3a chronic kidney disease (CMS/[facility]) Wellness examination Family History Problem Relation Name Age of Onset Hypertension Mother Hypertension Father Social History Tobacco Use Smoking status: Former Types: Cigarettes Smokeless tobacco: Never Vaping Use Vaping status: Never Used Substance Use Topics Alcohol use: Not Currently Review of Systems Cardiovascular: Positive for dyspnea on exertion. All other systems reviewed and are negative. Objective Visit Vitals BP 136/80 (BP Location: Left arm, Patient Position: Sitting, BP Cuff Size: Large adult) Pulse 73 Ht 1.524 m (5') Wt 77.1 kg (170 lb) SpO2 98% BMI 33.20 kg/m??? OB Status Postmenopausal Smoking Status Former BSA 1.81 m??? Physical Exam Physical Exam 07/14/2024 9:16 AM BP 136/80 BP Location Left arm Patient Position Sitting BP Cuff Size Large adult Pulse 73 SpO2 98 % Weight 77.1 kg (170 lb) Height [...] , Rfl: tadalafil (Cialis) 20 mg tablet, 2 tabs daily, Disp: 180 tablet, Rfl: 3 tolterodine LA (Detrol LA) [...] or split., Disp: 30 tablet, Rfl: 3 macitentan (Opsumit) (more content not included)... [facility] 03-05-2024 Note Subjective Sylvia Zavala is a 58 y.o. year old female patient being seen for pulmonary arterial hypertension. Patient relatively doing well. She denied chest pain or chest discomfort. She has stable dyspnea on exertion with minimal dizziness but no palpitations. Patient Active Problem List Diagnosis Arthropathy Atrial fibrillation (CMS/HCC) Chest pain Coronary artery disease involving choctaw coronary artery of choctaw heart without angina pectoris Deficiency anemia Essential [...] 101 (H) 10/03/2022 (more content not included)... [facility] 01-29-2024 Note Prior authorization was completed for patient 01/20/2024, for medication Abrisentan. The request has been approved from 01/28/2024-07/30/2024. Patient must that this is considered a Specialty medication, therefore patients plan requires that the medication be ordered through [facility] Phone . Will contact patient and inform her that this medication has been approved and that the specialty pharmacy will need to be contacted. [facility] 01-23-[address]Khouri alley ZHAO and that it is excluded from patients plan. Dr. Pruitt asked to send in Ambrisentan 5 mg was sent to patients pharmacy [facility] 12-25-2023 Note Received update on O psumit for this patient. Medication is not able to be approved because the medication is excluded from patients pharmacy benefit plan. However Generic Ambrisentan or Generic Bosentan are on the Patient pharmacy benefit plan. Because the denial is based on on the patient's pharmacy beneifit plan and not medical necessity , an appeal will not be available. [facility] 12-25-2023 Note Prior Authorization has been completed for this patient for the medication Opsumit 10 mg. Determination is pending will update once an outcome has been received [facility] 12-18-2023 Note Patient: Sylvia Jewell Procedure Information Date/Time: 12/18/23 0900 Procedure: Right heart cath Location: [facility] DIRECTOR OF PERSONNEL 2 [facility] (Cath) Providers: Maximilian Taveras MD Clinical information reviewed: Allergies Meds OB [...] with fellow and attending. Additional Equipment Requests [facility] 12-04-2023 Note ------ Attestation signed by Flory Pruitt MD at 12/04/2023 11:23 AM I personally saw and examined the patient on the same date of service as resident/fellow Dr. Cortez. I discussed the findings and therapeutic plan with the resident/fellow Dr. Cortez. I agree with the documentation, except for any edits/updates below. Teaching Physician's Revisions: None ------ Subjective Paoloe Red is a 58 y.o. year old [...] (CMS/HCC) Chest pain Coronary artery disease involving choctaw coronary artery of choctaw heart without angina pectoris Deficiency anemia Essential [...] physical exam H (more content not included)... [facility] 09-03-2023 Note Subjective Sylvia Zavala is a 58 [...] (CMS/HCC) Chest pain Coronary artery disease involving choctaw coronary artery of choctaw heart without angina pectoris Deficiency anemia Essential [...] to provide her medication. I asked my benefits assistant and MA, Feli, to call [facility] special pharmacy and send notes medication by mail. We will focus on her getting her medication. We will try to find a way to (more content not included)... [facility] 12-19-2021 Evaluation note Encounter Date Diagnosis Assessment Notes November, Pulmonary fibrosis, unspecified (ICD-10 - J84.10) November, Systemic sclerosis, unspecified (ICD-10 - M34.9) November, 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) [employer] Other Evaluation note* Diagnosis Urinary urgency Urgency of urination documented in this encounter [employer] Phone: evaluation note* Diagnosis Pulmonary fibrosis (HCC) Postinflammatory pulmonary fibrosis documented in this encounter [employer] Phone: evaluation noteNo assessment information available [facility] Work Phone: Evaluation note* Diagnosis Onset Date Resolution Status History of tobacco abuse acu te 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 acute Pulmonary fibrosis, unspecified acute 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 acute Scleroderma acute [facility] Work Phone: History general Narrative - Reported* Type Description Date Medical History scleroderma Medical History Hypertension Medical History pulmonary hypertension Medical History Esophageal reflux Surgical History D&C 2000 Surgical History C section 2001 Surgical History tubal ligation 2001 [facility] [employer] [facility] [email or web address] Other Summary Purpose Family History No Family History Records Found Relationship Condition Age at Onset Recorded Date/T saleem Not Specified Diabetes mellitus Unknown brother Malignant neoplasm Unknown father Hypertension Unknown Not Specified Hypertension Unknown Advance Directives No Advanced Directives Records FoundDocuments on File Type Date Recorded 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 * Head Injury (Brazilian) documented in this encounter Chief Complaint and [...] section and content) DATE CREATED AUTHOR 01/31/2018 [facility] DATE CREATED AUTHOR AUTHOR'S ORGANIZ ATION 09/01/2022 [facility] DATE CREATED AUTHOR AUTHOR'S ORGANIZ ATION 11/12/2022 [facility] DATE CREATED AUTHOR AUTHOR'S ORGANIZ ATION 02/05/2023 Cisneros Lance [facility] DATE CREATED AUTHOR AUTHOR'S ORGANIZ ATION 08/14/2023 [facility] EPIC DATE CREATED AUTHOR AUTHOR'S ORGANIZ ATION 12/16/2023 [facility] DATE CREATED AUTHOR AUTHOR'S ORGANIZ ATION 07/17/2024 [facility] Reason for Visit (unrecogniz ed section and content) Reason Comments Fall 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 Pt denies LOC, states I saw stars Specialty Diagnoses / Procedures Referred By Contac t Referred To Contact Radiology Diagnoses Pulmonary fibrosis (HCC) Procedures CT CHEST HIGH RESOLUTION CT CHEST WO CONTRAST Candi George MD Referral ID Status Reason Start Date Expiration Date Visits Re quested Visits Authorized [id number] Closed 11/06/2021 12/05/2021 1 1 Care Teams (unrecognized sec tion and content) Die Finisher Relationship Specialty Start Date End Date Josefa Martinez MD [address] [place] [address] PCP - General 10/03/12 Die Finisher Relationship Specialty Start Date End Date Josefa Martinez MD [address] [place] [address] PCP - General 10/03/12 Die Finisher Relationship Specialty Start Date End Date Josefa Martinez MD [address] [place] [address] PCP - General 10/03/12 Team Status: Inactive [...] December 16, 2023 End: December 16, 2023 Die Finisher Relationship Specialty Start Date End Date Josefa Martinez MD [address] [facility] [address] [place] [address] PCP - General Family Medicine 12/04/22 Die Finisher Relationship Specialty Start Date End Date Josefa Martinez MD [address] [facility] [address] [place] [address] PCP - General Family Medicine 12/04/22 Goals (unrecognized section and content) Goals may [...] BE BASED ON THE PRIMARY CLINICAL RECORDS. [employer] [facility]. provides no warranty or guarantee of the accuracy or completeness of information in this document.
[2024-08-07 07:55] LABS: Basophils Absolute Auto 0.1 10^3/uL (0.0-0.1); Basophils Percent Auto 0.9 % (0.2-2.0); Eosinophils Absolute Auto 0.4 10^3/uL (0.0-0.7); Eosinophils Percent Auto 3.9 % (0.9-7.0); Hematocrit 37.6 % (36.0-48.0); Immature Granulocytes Abs Auto 0.03 10^3/uL (0.00-0.03); Immature Granulocytes Pct Auto 0.3 % (0.0-0.5); Lymphocytes Absolute Auto 2.4 10^3/uL (1.2-3.8); Lymphocytes Percent Auto 26.5 % (20.5-60.0); Mean Corpuscular HGB Conc 31.9 g/dL (29.9-35.2); Mean Corpuscular Hemoglobin 27.8 pg (26.7-34.0); Mean Corpuscular Volume 87.2 fL (81.0-99.0); Mean Platelet Volume 10.2 fL (9.5-13.5); Monocytes Absolute Auto 0.9 10^3/uL (0.3-0.8); Monocytes Percent Auto 9.8 % (1.7-12.0); Neutrophils Absolute Auto 5.3 10^3/uL (1.4-6.5); Neutrophils Percent Auto 58.6 % (43.0-75.0); Platelet Count 243 10^3/uL (150-450); Red Blood Count 4.31 10^6/uL (4.20-5.40)
[2024-08-07 08:08] LABS: Erythrocyte Sedimentation Rate 10 mm/hr (<=30)
[2024-08-07 13:25] LABS: Alanine Aminotransferase 17 U/L (14-59); Albumin Globulin Ratio 1.2; Albumin Level 3.8 g/dL (3.4-5.0); Alkaline Phosphatase 129 U/L (46-116); Aspartate Amino Transferase 21 U/L (15-37); Bilirubin Direct 0.1 mg/dL (0.0-0.2); Estimated GFR (African America >60 (>=60 mL/min/1.73m^2); Estimated GFR (Non-African Ame 52 (>=60 mL/min/1.73m^2); Globulin 3.3 g/dL; Total Protein 7.1 g/dL (6.4-8.2)
[2024-08-08 22:51] LABS: Bilirubin Total 0.2 mg/dL (0.2-1.0)
== END 2024-08-07 07:36 | disposition home or self-care (01) ==
LOC: LAB 07:37
PROVIDERS: PCP Family Medicine; Visit Provider Internal Medicine Rheumatology
DX: M05.79 Rheumatoid arthritis with rheumatoid factor of multiple sites without organ or systems involvement (principal); Z79.899 Other long term (current) drug therapy
CPT/HCPCS: 36415; 80076; 82565; 85025; 85652

== ENCOUNTER 2024-09-09 08:32 | Outpatient (OUT) | payer OTHER, SELFPAY ==
--- NOTE | 2024-09-09 08:35 | MM_ITS ---
Patient Name: SYLVIA MCCRARY MR#: [id number] : 1965 Exam Date: 09/09/2024 Ordering Doctor: DR JOSEFA MARTINEZ M.D. RADIOLOGY REPORT PROCEDURE: MM TOMOSYNTHESIS SCREENING BI COMPARISON: MM TOMOSYNTHESIS SCREENING BI, 08/14/2023. MG MAMM SCREEN LJ W CAD, 01/24/2018. MG MAMM SCREEN LJ W CAD, 01/07/2017. MG MAMM LJ SCRN W CAD DIG, 11/20/2013. INDICATIONS: Screening Calculator Name NCI Breast Cancer Risk Assessment Tool 5 Year Breast Cancer Risk 1.20% Lifetime Breast Cancer Risk 5.00% Personal Breast Cancer No Personal Ovarian Cancer No Treatments None Family Cancers Mother with cervical cancer at age 70; Aunt-maternal with colon cancer at age ~40. LOCATION: [facility] BREAST COMPOSITION: The breasts are heterogeneously dense,which may obscure small masses. FINDINGS: DIAGNOSTIC CATEGORY 1--NEGATIVE. RIGHT BREAST: No significant suspicious finding. No significant change has occurred. LEFT BREAST: No significant suspicious finding. No significant change has occurred. RECOMMENDATIONS: ROUTINE MAMMOGRAM AND CLINICAL EVALUATION IN 12 MONTHS. PLEASE NOTE: A NORMAL MAMMOGRAM DOES NOT EXCLUDE THE POSSIBILITY OF BREAST CANCER. A CLINICALLY SUSPICIOUS PALPABLE LUMP SHOULD BE BIOPSIED. Dictated by: Lon Rudolph M.D. on 09/11/2024 at 10:55 Approved by: Lon Rudolph M.D. on 09/11/2024 at 10:58
== END 2024-09-09 08:33 | disposition home or self-care (01) ==
LOC: MAMMO 08:32
PROVIDERS: PCP Family Medicine; Visit Provider Family Medicine
DX: Z12.31 Encounter for screening mammogram for malignant neoplasm of breast (principal); Z80.8 Family history of malignant neoplasm of other organs or systems; Z80.0 Family history of malignant neoplasm of digestive organs
CPT/HCPCS: 77063; 77067

== ENCOUNTER 2024-09-21 07:35 | Outpatient (OUT) | payer OTHER, SELFPAY ==
[2024-09-21 08:16] LABS: Alanine Aminotransferase 17 U/L (14-59); Albumin Globulin Ratio 1.2; Albumin Level 3.8 g/dL (3.4-5.0); Alkaline Phosphatase 112 U/L (46-116); Aspartate Amino Transferase 23 U/L (15-37); Bilirubin Direct 0.1 mg/dL (0.0-0.2); Bilirubin Total 0.2 mg/dL (0.2-1.0); Estimated GFR (African America 51 (>=60 mL/min/1.73m^2); Estimated GFR (Non-African Ame 42 (>=60 mL/min/1.73m^2); Globulin 3.1 g/dL; Total Protein 6.9 g/dL (6.4-8.2)
== END 2024-09-21 07:36 | disposition home or self-care (01) ==
LOC: LAB 07:36
PROVIDERS: PCP Family Medicine; Visit Provider Internal Medicine Rheumatology
DX: M05.79 Rheumatoid arthritis with rheumatoid factor of multiple sites without organ or systems involvement (principal); Z79.899 Other long term (current) drug therapy
CPT/HCPCS: 36415; 80076; 82565; 85652

== ENCOUNTER 2024-09-22 11:47 | Outpatient (OUT) | payer OTHER, SELFPAY ==
[2024-09-22 12:02] LABS: Basophils Absolute Auto 0.1 10^3/uL (0.0-0.1); Eosinophils Absolute Auto 0.3 10^3/uL (0.0-0.7); Eosinophils Percent Auto 3.9 % (0.9-7.0); Hemoglobin 12.5 g/dL (12.0-16.0); Immature Granulocytes Abs Auto 0.02 10^3/uL (0.00-0.03); Immature Granulocytes Pct Auto 0.2 % (0.0-0.5); Lymphocytes Absolute Auto 2.7 10^3/uL (1.2-3.8); Lymphocytes Percent Auto 32.4 % (20.5-60.0); Mean Corpuscular HGB Conc 32.9 g/dL (29.9-35.2); Mean Corpuscular Hemoglobin 28.9 pg (26.7-34.0); Monocytes Absolute Auto 0.7 10^3/uL (0.3-0.8); Monocytes Percent Auto 8.8 % (1.7-12.0); Neutrophils Absolute Auto 4.5 10^3/uL (1.4-6.5); Neutrophils Percent Auto 53.7 % (43.0-75.0); Platelet Count 260 10^3/uL (150-450); Red Blood Count 4.32 10^6/uL (4.20-5.40); Red Cell Distribution Width 13.8 % (11.0-15.0); White Blood Count 8.4 10^3/uL (4.0-11.0)
--- OUTSIDE RECORDS SUMMARY | 2024-09-22 12:03 | XMS_ITS | CCD ---
Author Organization [facility] Care Team Providers Care Compress Machine Operator Name Role Phone BROWN, CHRISTOPHER Unavailable Unavailable BROWN, CHRISTOPHER Unavailable Unavailable MICHELLE, RUGEN Unavailable Unavailable BROWN, CHRISTOPHER Unavailable Unavailable SKIE, OREN Unavailable Unavailable SKIE, OREN Unavailable Unavailable MICHELLE, RUGEN Unavailable Unavailable MICHELLE, RUGEN Unavailable Unavailable [place] Unavailable Unavailable SKIE, OREN Unavailable Unavailable [place] Unavailable Unavailable PITRODA, TENNILLE Unavailable Unavailable PHYSICIAN, DEFAULT Unavailable Unavailable PHYSICIAN, DEFAULT Unavailable Unavailable MICHELLE, YANIVEN Unavailable Unavailable PHYSICIAN, DEFAULT Unavailable Unavailable PHYSICIAN, DEFAULT Unavailable Unavailable YANIV MARTINEZEN Unavailable Unavailable Josefa Martinez Primary Care Provider Josefa Martinez Primary Care Provider [phone] Josefa Martinez Primary Care Provider Josefa Martinez MD Primary Care Provider Josefa Martinez MD Primary Care Provider Candi George Unavailable Josefa Martinez MD Primary Care Provider Josefa Martinez MD Primary Care Provider MD Josefa Martinez Primary Care Provider MD Josefa Martinez Attending Provider [phone] MIGUEL Benitez Attending Provider Josefa Martinez Primary Care Unavailable Giacomo Benitez Attending Unavailable Giacomo Benitez Admitting Unavailable Josefa Martinez Admitting Unavailable Josefa Martinez Attending Unavailable Josefa Martinez Primary Care Unavailable DR VINICIUS BULLOCK Admitting Unavailable DR VINICIUS BULLOCK Attending Unavailable DR JOSEFA MARTINEZ Primary Care Unavailable MENG DR COLVIN Consulting Unavailable HALADAEmily, DR COLVIN Admitting Unavailable HALADAEmily, DR COLVIN Attending Unavailable MICHELLE, DR RIVERO Primary Care Unavailable MENG, DR COLVIN Consulting Unavailable BOB HARDING Referring Unavailfabienne MARTINEZ, JOSEFA Chapman Primary Care Unavailable Josefa Martinez MD Primary Care Provider EDMOND, FLORY Do Attending Unavailable MAXIMILIAN TAVERAS Admitting Unavailable MAXIMILIAN TAVERAS Attending Unavailable EDMOND, SAMER J Referring Unavailable EDMOND, SAMER J Attending Unavailable EDMOND, SAMER J Attending Unavailable EDMOND, SAMER J Referring Unavailable EDMOND, SAMER J Attending Unavailable EDMOND, SAMER J Referring Unavailable EDMOND, SAMER J Referring Unavailable Frank JOE Attending Unavailable JOE, Frank Lea Attending Unavailable JOE, Frank Lea Attending Unavailable MICHELLE, JOSEFA Chapman Attending Unavailable Allergies Allergy Classification Reported Allergen(s) Allergy Type Date of Onset Reaction(s) Facility (3 sources) amoxicillin / clavulanate; Translations: [Augmentin] Drug Allergy 1 [facility] Repository (20 sources) Amoxicillin-Pot Clavulanate; Translations: [AMOXICILLIN-PO T CLAVULANATE] Propensity to adverse reactions to drug 3 [place], [place] (1 source) Amoxicillin / Clavulanate Drug Allergy [facility] [employer] Other (9 sources) Amoxicillin; Translations: [amoxicillin] Drug Allergy 4 [facility] (1 source) Clavulanate Drug Allergy 4 [facility] Medications Current Medications Medication Drug Class(es) Dates Sig (Normalized) Sig (Original) ambrisentan 5 mg oral tablet (4 sources) Endothelin Receptor Antagonist Start: 01-31-2024 take 1 tablet by mouth in the morning ambrisentan (Letairis) 5 MG tablet Take 5 mg by mouth in the morning. 01/31/2024 Active aspirin 81 mg delayed release oral tablet (20 sources) Platelet Aggregation Inhibitor, Nonsteroidal Anti-inflammatory Drug Start: 12-16-2023 Aspirin (Clover Low Dose Aspirin) 81 mg tablet,delayed release (DR/EC) Active 81 MG PO Daily December 16, 2023 12:00am take 1 tablet by mouth once azra y aspirin 81 MG tablet Take 81 mg by mouth daily. 0 Active atorvastatin 40 mg oral tablet (7 sources) HMG-CoA Reductase Inhibitor Start: 08-12-2023 End: 09-15-2024 take 1 tablet by mouth in the morning atorvastatin (Lipitor) 40 MG tablet Indications: Hyperlipidemia, unspecified hyperlipidemia type (CMS/HCC) TAKE 1 TABLET BY MOUTH IN THE MORNING 30 tablet 09/07/2024 Active Clover Low Strength 81 MG (1 source) take 1 tablet by mouth once daily carvedilol 6.25 mg oral tablet (20 sources) alpha-Adrenergi c Joie, beta-Adrenergic Joie Start: 11-13-2023 take 1 tablet by mouth twice daily at mealtime carvedilol (Coreg) 6.25 MG tablet Indications: Benign essential hypertension (CMS/HCC) Take 1 tablet by mouth twice daily with food 200 tablet 3 11/13/2023 Active take 1 tablet by jovana th twice daily at mealtime carvedilol (COREG) 6.25 MG tablet Take 6.25 mg by mouth 2 times daily (with meals). 0 Active celecoxib 200 mg oral capsule (7 sources) Nonsteroidal Anti-inflammatory Drug Start: 11-20-2023 take 1 capsule by mouth once daily at mealtime celecoxib (CeleBREX) 200 MG capsule Indications: Rheumatoid arthritis in remission (CMS/HCC) TAKE 1 CAPSULE BY MOUTH ONCE DAILY WITH FOOD FOR 90 DAYS 100 capsule 3 11/20/2023 Active cholecalciferol 0.125 mg oral tablet (4 sources) Vitamin D take 1 tablet by mouth in the morning cholecalciferol (Vitamin D-3) 125 MCG (5000 UT) tablet Take 5,000 Units by mouth in the morning. Active ferrous sulfate 325 mg oral tablet (19 sources) take 1 tablet by mouth at mealtime ferrous sulfate 325 (65 Fe) MG tablet Take 325 mg by mouth in the morning. Take with meals. Active furosemide 20 mg oral tablet (7 sources) Loop Diuretic Start: 11-20-2023 take 1 tablet by mouth in the morning furosemide (Lasix) 20 MG tablet Indications: Edema, unspecified type Take 1 tablet (20 mg) by mouth in the morning and 1 tablet (20 mg) before bedtime. 200 tablet 3 11/20/2023 Active hydroCHLOROthiazide 25 mg oral tablet (20 sources) Thiazide Diuretic Start: 12-16-2023 take 1 tablet by mouth once daily Hydrochlorothiazide Active 1 TAB PO Daily December 16, 2023 12:00am Free[employer] tablet Orally Once a day; Note: Source Status: Taking; Provider: Ariel Christopher ( ) hydroxychloroquine sulfate 200 mg oral tablet (20 sources) Antimalarial, Antirheumatic Agent Start: 12-16-2023 take [...] nty-four hours lisinopril 20 mg oral tablet (20 sources) Angiotensin Converting Enzyme Inhibitor Start: 12-16-2023 [...] 0 Active loratadine 10 mg oral tablet (20 sources) Start: 12-16-2023 take 1 tablet by mouth once daily Loratadine (Claritin) 10 mg tablet Active 1 TAB PO Daily December 16, 2023 12:00am [employer] tablet Orally Once a day; Note: Source Status: Taking; Provider: Ariel Christopher ( ) NIFEdipine 10 mg oral capsule (20 sources) Dihydropyridine Calcium Channel Joie Start: 12-16-2023 [...] 2 tablets by mo uth once daily omeprazole 40 mg delayed release oral capsule (20 sources) Proton Pump Inhibitor Start: 12-16-2023 take 40 mg by mouth twice daily Omeprazole Active 40 MG PO Twice daily December 16, 2023 12:00am take 1 capsule by mouth in the m orning omeprazole (PriLOSEC) [address] capsule Take 20 mg by mouth in the morning and 20 mg in the evening. Take before meals. Active take 2 capsules by mouth once da [...] sulfaSALAzine 500 mg delayed release oral tablet (7 sources) Aminosalicylate Start: 023 take 2 tablets by mouth in the morning sulfaSALAzine (Azulfidine) 500 MG EC tablet Take 1,000 mg by mouth in the morning and 1,000 mg before bedtime. 07/19/2023 Active tadalafil 20 mg oral tablet (20 sources) Phosphodiesterase 5 Inhibitor Start: 024 tadalafil (Cialis) 20 MG tablet 2 tabs daily 03/05/2024 Active take 4 tablets by mouth once sunita ly Tadalafil, PAH, (ADCIRCA) 20 MG tablet Take 80 mg by mouth daily. 0 Active take 2 tablets by mouth once sunita ly take 4 tablets by mouth once sunita ly Tadalafil, PAH, (ADCIRCA) 20 MG tablet Take 80 mg by mouth daily. 0 Active 24 hr tolterodine tartrate 4 mg extended release oral capsule (7 sources) Cholinergic Muscarinic Antagonist Start: 06-21-2023 take 1 capsule by mouth every twenty-four hours in the morning tolterodine LA (Detrol LA) 4 MG 24 hr capsule Take 4 mg by mouth in the morning and 4 mg before bedtime. 06/21/2023 Active traMADol hydrochloride 50 mg oral tablet (2 sources) Opioid Agonist Start: 08-31-2024 End: 09-05-2024 take 1 tablet by mouth every six hours for pain traMADol (Ultram) 50 MG tablet Indications: Systemic sclerosis, unspecified (CMS/HCC) , Interstitial pulmonary disease, unspecified (CMS/HCC) Take 1 tablet (50 mg) by mouth every 6 (six) hours if needed for severe pain for up to 5 days 15 tablet 08/31/2024 09/05/2024 Active Problems Active Problems Problem Classification Problem Date Documented Da te Episodic/Chronic Acquired foot deformities (8 sources) Hallux valgus (acquired), left foot; Translations: [Acquired hallux valgus] Onset: 07-25-2022 08-02-2023 Chronic Calculus of urinary tract (1 source) Kidney stone; Translations: [Kidney stone] Episodic Cardiac dysrhythmias (9 sources) Atrial fibrillation; Translations: [Unspecified atrial fibrillation] Onset: 02-13-2013 08-06-2023 Chronic Chronic kidney disease (14 sources) Chronic kidney disease stage 3A ; Translations: [Stage 3a chronic kidney disease (HCC)] Onset: 08-02-2023 08-02-2023 Chronic Chronic ulcer of skin (9 sources) Non-pressure chronic ulcer of other part of left foot with fat layer exposed; Translations: [Ulcer of other part of foot] Onset: 08-02-2023 08-02-2023 Chronic Coronary atherosclerosis and other heart disease (16 sources) Coronary arteriosclerosis; Translations: [Atherosclerotic heart disease of [place] coronary artery without angina pectoris] Onset: 02-13-2013 08-06-2023 Chronic Disorders of lipid metabolism (9 sources) Hyperlipidemia; Translations: [Hyperlipidemia, unspecified] Onset: 08-27-2011 08-06-2023 Chronic Esophageal disorders (2 sources) Gastro-esophageal reflux disease without esophagitis; Translations: [Gastroesophageal reflux disease] Onset: 04-15-2017 12-16-2023 Chronic Essential hypertension (11 sources) Essential (primary) hypertension; Translations: [Hypertensive disorder] Onset: 04-15-2017 12-16-2023 Chronic External cause codes: Fall (1 source) Fall; Translations: [Fall, initial encounter] Genitourinary symptoms and ill-defined conditions (1 source) Urgent desire to urinate; Translations: [Urgency of urination] Episodic Gout and other crystal arthropathies (7 sources) Primary gout; Translations: [Idiopathic gout, unspecified site] Onset: 08-02-2023 08-02-2023 Chronic Osteoarthritis (5 sources) Primary osteoarthritis, left hand; Translations: [Secondary osteoarthritis, right hand] Onset: 02-13-2017 Chronic Osteoporosis (7 sources) Senile osteoporosis; Translations: [Age-related osteoporosis without current pathological fracture] Onset: 08-02-2023 08-02-2023 Chronic Other acquired deformities (7 sources) Contracture of joint of left ankle; Translations: [Contracture, left ankle] Onset: 08-02-2023 08-02-2023 Chronic Other aftercare (1 source) 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; Translations: [OTH LONG-TERM CURRENT DRUG THERAPY] Onset: 11-12-2022 Episodic Other circulatory disease (7 sources) Raynaud's disease; Translations: [Raynaud's syndrome without gangrene] Onset: 08-02-2023 08-02-2023 Chronic Other connective tissue disease (1 source) Metatarsalgia, right foot; Translations: [Metatarsalgia, right foot] Onset: 07-25-2022 Episodic Other lower respiratory disease (12 sources) Fibrosis of lung; Translations: [Pulmonary fibrosis, [...] disease] 12-16-2023 Chronic Other lower respiratory disease (11 sources) Interstitial lung disease; Translations: [Interstitial pulmonary disease, unspecified] Onset: 08-02-2023 08-02-2023 Chronic Other nervous system disorders (7 sources) Disorder of muscle; Translations: [Myopathy, unspecified] Onset: 08-08-2023 08-08-2023 Chronic Other non-traumatic joint disorders (7 sources) Arthropathy; Translations: [Arthropathy, unspecified] Onset: 03-26-2017 08-06-2023 Chronic Other screening for suspected conditions (not mental disorders or infectious disease) (2 sources) Patient encounter status; Translations: [Encounter for screening mammogram for malignant neoplasm of breast] 08-31-2024 Episodic Other upper respiratory disease (1 source) Other seasonal allergic rhinitis; Translations: [OTHER SEASONAL ALLERGIC RHINITIS] Onset: 04-15-2017 Chronic Pulmonary heart disease (20 sources) Other secondary pulmonary hypertension; Translations: [Secondary pulmonary hypertension] Onset: 04-15-2017 Resolved: 12-19-2021 Chronic Rheumatoid arthritis and related disease (20 sources) Rheumatoid arthritis, unspecified; Translations: [Rheumatoid arthritis [...] Systemic lupus erythematosus and connective tissue disorders (17 sources) Systemic sclerosis, unspecified; Translations: [Systemic sclerosis] [...] Documented Date Episodic/Chronic Deficiency and other anemia (9 sources) Deficiency anemias; Translations: [Nutritional anemia, unspecified] Onset: 08-28-2011 08-06-2023 Episodic Gastritis and duodenitis (7 sources) Bile-induced gastritis; Translations: [Other gastritis without bleeding] Onset: 08-02-2023 08-02-2023 Episodic Joint disorders and dislocations; trauma-related (4 sources) Dislocation of interphalangeal joint of left thumb, initial encounter; Translations: [Recurrent dislocation, left finger] Onset: 02-13-2017 Episodic Nonspecific chest pain (7 sources) Chest pain; Translations: [Chest pain, unspecified] Onset: 02-13-2013 08-06-2023 Episodic Other aftercare (1 source) [facility] (current) use of aspirin; Translations: [REFERRAL MANAGER (CURRENT) USE OF ASPIRIN] Onset: 04-15-2017 Episodic Other connective tissue disease (7 sources) Muscle pain; Translations: [Myalgia, unspecified site] Onset: 08-08-2023 08-08-2023 Episodic Other diseases of veins and lymphatics (7 sources) Peripheral venous insufficiency; Translations: [Venous insufficiency (chronic) (peripheral)] Onset: 08-02-2023 08-02-2023 Episodic Other lower respiratory disease (7 sources) Dyspnea; Translations: [Shortness of breath] Onset: 09-21-2022 08-06-2023 Episodic Results Test Name Value Interpretation Reference Range Facility [facility] LIVER PANELon Albumin [Mass/Vol] 3.8 g/dL 3.4 - 5.0 g/dL [facility] ALBUMIN GLOBULIN RATIO 1.2 [facility] ALP [Catalytic activity/Vol] 112 U/L 46 - 116 U/L [facility] ALT [Catalytic activity/Vol] 17 U/L 14 - 59 U/L [facility] AST [Catalytic activity/Vol] 23 U/L 15 - 37 U/L [facility] Bilirubin [Mass/Vol] 0.2 mg/dL 0.2 - 1 .0 mg/dL [facility] Bilirubin.indirect [Mass/Vol] 0.1 mg/dL 0.0 - 0.2 mg/dL [facility] Globulin (S) [Mass/Vol] 3.1 g/dL [facility] Protein [Mass/Vol] 6.9 g/dL 6.4 - 8.2 g/dL [facility] No Panel Informationon 09-21 [facility] CREATININEon 09-21-2024 Creatinine [Mass/Vol] 1.3 mg/dL High 0.55 - 1.02 mg/dL [facility] GFR/1.73 sq M.predicted CKD-EPI (S/P/Bld) [Vol rate/Area] 51 Low >=60 mL/min/1.73 m 2 [facility] Interpretation and review of laboratory results Abnormal [facility] EGFR-NON AF TONGAN 42 Low >=60 mL/min/1.73 m 2 [facility] MM TOMOSYNTHESIS SCREENING B Ion 09-11-2024 [place] [address] Mammography Report Signed Patient: SYLVIA BASS MR#: [id number] : 1965 Acct:[id number] Age/Sex: 59 / F ADM Date: 09/09/24 Loc: MAMMO Attending Dr: JOSEFA MARTINEZ Ordering Physician: JOSEFA MARTINEZ Results: Date of Service: 09/09/24 Follow Up: Procedure(s): MM tomosynthesis screening BI Accession Number(s): [id number] cc: JOSEFA MARTINEZ Patient Name: SYLVIA BASS MR#: [id number] : 1965 Exam Date: 09/09/2024 Ordering Doctor: DR JOSEFA MARTINEZ M.D. RADIOLOGY REPORT PROCEDURE: MM TOMOSYNTHESIS SCREENING BI COMPARISON: MM TOMOSYNTHESIS SCREENING BI, 08/14/2023. MG MAMM SCREEN LJ W CAD, 01/24/2018. MG MAMM SCREEN LJ W CAD, 01/07/2017. MG MAMM LJ SCRN W CAD DIG, 11/20/2013. INDICATIONS: Screening Calculator Name NCI Breast Cancer Risk Assessment Tool 5 Year Breast Cancer Risk 1.20% Lifetime Breast Cancer Risk 5.00% Personal Breast Cancer No Personal Ovarian Cancer No Treatments None Family Cancers Mother with cervical cancer at age 70; Aunt-maternal with colon cancer at age 40. LOCATION: [facility] BREAST COMPOSITION: The breasts are heterogeneously dense,which may obscure small masses. FINDINGS: DIAGNOSTIC CATEGORY 1--NEGATIVE. RIGHT BREAST: No significant suspicious finding. No significant change has occurred. LEFT BREAST: No significant suspicious finding. No significant change has occurred. RECOMMENDATIONS: ROUTINE MAMMOGRAM AND CLINICAL EVALUATION IN 12 MONTHS. PLEASE NOTE: A NORMAL MAMMOGRAM DOES NOT EXCLUDE THE POSSIBILITY OF BREAST CANCER. A CLINICALLY SUSPICIOUS PALPABLE LUMP SHOULD BE BIOPSIED. Dictated by: Lon Rudolph M.D. on 09/11/2024 at 10:55 Approved by: Lon Rudolph M.D. on 09/11/2024 at 10:58 Dictated By: Lon Rudolph M.D. Signed By: 09/11/24 1059 DD/ 1058 TD/TT: Foot Specialist: [facility] Radiology, Radiologist, MD - 09/11/2024 [place] [address] Mammography Report Signed Patient: SYLVIA BASS MR#: [id number] : 1965 Acct:[id number] Age/Sex: 59 / F ADM Date: 09/09/24 Loc: MAMMO Attending Dr: JOSEFA MARTINEZ Ordering Physician: JOSEFA MARTINEZ Results: Date of Service: 09/09/24 Follow Up: Procedure(s): MM tomosynthesis screening BI Accession Number(s): [id number] cc: JOSEFA MARTINEZ Patient Name: SYLVIA BASS MR#: [id number] : 1965 Exam Date: 09/09/2024 Ordering Doctor: DR JOSEFA MARTINEZ M.D. RADIOLOGY REPORT PROCEDURE: MM TOMOSYNTHESIS SCREENING BI COMPARISON: MM TOMOSYNTHESIS SCREENING BI, 08/14/2023. MG MAMM SCREEN LJ W CAD, 01/24/2018. MG MAMM SCREEN LJ W CAD, 01/07/2017. MG MAMM LJ SCRN W CAD DIG, 11/20/2013. INDICATIONS: Screening Calculator Name NCI Breast Cancer Risk Assessment Tool 5 Year Breast Cancer Risk 1.20% Lifetime Breast Cancer Risk 5.00% Personal Breast Cancer No Personal Ovarian Cancer No Treatments None Family Cancers Mother with cervical cancer at age 70; Aunt-maternal with colon cancer at age 40. LOCATION: [facility] BREAST COMPOSITION: The breasts are heterogeneously dense,which may obscure small masses. FINDINGS: DIAGNOSTIC CATEGORY 1--NEGATIVE. RIGHT BREAST: No significant suspicious finding. No significant change has occurred. LEFT BREAST: No significant suspicious finding. No significant change has occurred. RECOMMENDATIONS: ROUTINE MAMMOGRAM AND CLINICAL EVALUATION IN 12 MONTHS. PLEASE NOTE: A NORMAL MAMMOGRAM DOES NOT EXCLUDE THE POSSIBILITY OF BREAST CANCER. A CLINICALLY SUSPICIOUS PALPABLE LUMP SHOULD BE BIOPSIED. Dictated by: Lon Rudolph M.D. on 09/11/2024 at 10:55 Approved by: Lon Rudolph M.D. on 09/11/2024 at 10:58 Dictated By: Lon Rudolph M.D. Signed By: 09/11/24 1059 DD/ 1058 TD/TT: Foot Specialist: [facility] Radiology Study observation (narrative) [facility] MM TOMOSYNTHESIS SCREENING B IOrdered By: Radiologist Radiology on 09-11-2024 [facility] Work Phone: COMPREHENSIVE METABOLIC PANE [place] 09-01-2024 Albumin [Mass/Vol] 4.6 g/dL Normal 3.6-5.1 [facility] Comment on above: Performed By: #### 7 499, [id number] #### [facility] [address], [address] [place] [id number] [employer] Paralegal: Jomar Pham MD Albumin/Globulin [Mass ratio] 1.9 {ratio} Normal 1.0-2.5 [facility] Comment on above: Performed By: #### 7 600, [id number] #### [facility] [address], [address] [place] [id number] [employer] Paralegal: Jomar Pham MD ALP [Catalytic activity/Vol] 97 U/L Normal 37-153 [facility] Comment on above: Performed By: #### 7 600, [id number] #### [facility] of [place] [address] [employer] Paralegal: Jomar Pham MD ALT [Catalytic activity/Vol] 11 U/L Normal 6-29 [facility] Comment on above: Performed By: #### 7 600, [id number] #### [facility] of [place] [address] [employer] Paralegal: Jomar Pham MD AST [Catalytic activity/Vol] 22 U/L Normal 10-35 [facility] Comment on above: Performed By: #### 7 600, [id number] #### [facility] [place] [address] [employer] Par[employer]egal: Jomar Pham MD Bilirubin [Mass/Vol] 0.4 mg/dL Normal 0.2-1.2 [facility] Comment on above: Performed By: #### 7 600, [id number] #### [facility] [place] [address] [employer] Paralegal: Jomar Pham MD BUN/CREATININE RATIO SEE NOTE: Normal 6-22 [facility] Comment on above: Result Comment: Not Reported: BUN and Creatinine are within reference range. Performed By: #### 7 600, [id number] #### [facility] of [address], [address] [place] [address] [employer] Par[employer]egal: Jomar Pham MD Calcium [Mass/Vol] 9.8 mg/dL Normal 8.6-10.4 [facility] Comment on above: Performed By: #### 7 600, 18651 #### [facility] of [place] [address] [employer] Paralegal: Jomar Pham MD Chloride [Moles/Vol] 105 mmol/L Normal 98-110 [facility] Comment on above: Performed By: #### 7 600, [id number] #### [facility] of [address] [place] [address] [employer] Paralegal: Jomar Pham MD CO2 [Moles/Vol] 25 mmol/L Normal 20-32 [facility] Comment on above: Performed By: #### 7 600, [id number] #### [facility] of [address], [address] [place] [address] [employer] Par[employer]egal: Jomar Pham MD Creatinine [Mass/Vol] 0.88 mg/dL Normal 0.50-1.[address] [facility] Comment on above: Performed By: #### 7 600, [id number] #### [facility] of [address], [address] [place] [address] [employer] Par[employer]egal: Jomar Pham MD GFR/1.73 sq M.predicted among non-blacks MDRD (S/P/Bld) [Vol rate/Area] 75 mL/min/{1.73_m2} Normal > OR = 60 [facility] Comment on above: Performed By: #### 7 600, [id number] #### [facility] of [address], [address] [place] [address] [employer] Par[employer]egal: Jomar Pham MD Globulin (S) [Mass/Vol] 2.4 g/dL Normal 1.9-3.7 [facility] Comment on above: Performed By: #### 7 600, [id number] #### [facility] of [address], [address] [place] [address] [employer] Par[employer]egal: Jomar Pham MD Glucose [Mass/Vol] 82 mg/dL Normal 65-99 [facility] Comment on above: Result Comment: Fasting reference interval Performed By: #### 7 600, [id number] #### [facility] of [address], [address] [place] [address] [employer] Par[employer]egal: Jomar Pham MD Potassium [Moles/Vol] 3.4 mmol/L Low 3.5-5.[address] [facility] Comment on above: Performed By: #### 7 600, [id number] #### [facility] of [address], [address] [place] [address] [employer] Par[employer]egal: Jomar Pham MD Protein [Mass/Vol] 7.0 g/dL Normal 6.1-8.1 [facility] Comment on above: Performed By: #### 7 600, 29198 #### [facility] [place] [address] [employer] Par[employer]egal: Jomar Pham MD Sodium [Moles/Vol] 141 mmol/L Normal 135-146 [facility] Comment on above: Performed By: #### 7 600, 30763 #### [facility] [place] [address] [employer] Par[employer]egal: Jomar Pham MD Urea nitrogen [Mass/Vol] 17 mg/dL Normal 7-25 [facility] Comment on above: Performed By: #### 7 600, [id number] #### [facility] [place] [address] [employer] Par[employer]egal: Jomar Pham MD LIPID PANEL, [facility] Cholesterol [Mass/Vol] 174 mg/dL Normal <200 [facility] Comment on above: Order Comment: FASTI NG:YES FASTING: YES Performed By: #### 7 600, [id number] #### [facility] [place] [address] [employer] Par[employer]egal: Jomar Pham MD Cholesterol in HDL [Mass/Vol] 80 mg/dL Normal > OR = 50 [facility] Comment on above: Order Comment: FASTI NG:YES FASTING: YES Performed By: #### 7 600, [id number] #### [facility] [place] [address] [employer] Par[employer]egal: Jomar Pham MD Cholesterol in LDL [Mass/Vol] 78 mg/dL Normal [facility] Comment on above: Order Comment: FASTI NG:YES FASTING: YES Result Comment: Refe rence range: <100 Desirable range <100 mg/dL for primary prevention; <70 mg/dL for patients with CHD or diabetic patients with > or = 2 CHD risk factors. LDL-C is now calculated using the Oren-Henson calculation, which is a validated novel method providing better accuracy than the Friedewald equation in the estimation of LDL-C. Oren JEAN-BAPTISTE et al. [place]. 2013;310(19): 8617-8479 (http://education.Spectral Image/faq/ISR832) Performed By: #### 7 600, [id number] #### [facility] [address], [address] [place] [address] [employer] Paralegal: Jomar Pham MD Cholesterol.total/Leigh sterol in HDL [Mass ratio] 2.2 {ratio} Normal <5.0 [facility] Comment on above: Order Comment: FASTI NG:YES FASTING: YES Performed By: #### 7 600, [id number] #### [facility] [address], [address] [place] [address] [employer] Paralegal: Jomar Pham MD NON HDL CHOLESTEROL 94 mg/dL (calc) Normal <130 [facility] Comment on above: Order Comment: FASTI NG:YES FASTING: YES Result Comment: For patients with diabetes plus 1 major ASCVD risk factor, treating to a non-HDL-C goal of <100 mg/dL (LDL-C of <70 mg/dL) is considered a therapeutic option. Performed By: #### 7 600, [id number] #### [facility] [place] [address] [employer] Paralegal: Jomar Pham MD Triglyceride [Mass/Vol] 81 mg/dL Normal <150 [facility] Comment on above: Order Comment: FASTI NG:YES FASTING: YES Performed By: #### 7 600, [id number] #### [facility] [address], [address] [place] [address] [employer] Paralegal: Jomar Pham MD Ambulatory Visit Summaryon 0 08-14-2024 Ambulatory Visit Summary Ambulatory Visit Summary SYLVIA BASS :1965 Visit Date:08/14/2024 Ambulatory Visit Instructions Your Diagnosis OAB (overactive bladder) Incomplete bladder emptying Personal history of kidney stones Your Care Team Attending Physician - JUNIOR JIMENEZ, Frank Lea Primary Care Physician - JOSEFA MARTINEZ MD [...] section, Colonoscopy, Foot, Tubal ligation. Discharge Vitals Temperature (Temporal Artery) 37 ???C Heart Rate (Peripheral) 68 Respiratory Rate 18 Blood Pressure 130/70 Height 152 cm Height 60 in Weight 78.1 kg Weight 172.181 lb BMI 33.8 What to do next Scheduled Follow-Up Appointments Saturday2025 8:45 AM EST With: Frank JOE MD Where: [facility] [address] [place] [address]- You Need to Schedule the Following Appointments Follow Up with Frank JOE MD, URL When: Where: [facility] [place] [address]- Medications What How Much When Instructions Changed tolterodine (tolterodine 4 mg Cap-ER) 1 Capsules By Mouth As Directed Take 2 tabs in the AM and 1 tab in the evening. Pickup at [facility] Unchanged aspirin (aspirin 81 mg Chew Tab) Contact prescribing physician if questions or concerns Unchanged carbonyl iron (Iron Chews) Contact prescribing physician if questions or concerns Unchanged carvedilol Contact prescribing physician if questions or concerns Unchanged celecoxib Contact prescribing physician if questions or concerns Unchanged esomeprazole (Nexium) Contact prescribing physician if questions or concerns Unchanged furosemide (furosemide 40 mg Tab) Contact prescribing physician if questions or concerns Unchanged hydrochlorothiazide Contact prescribing physician if questions or concerns Unchanged hydroxychloroquine Contact prescribing physician if questions or concerns Unchanged lisinopril (lisinopril 10 mg Tab) Contact prescribing physician if questions or concerns Unchanged macitentan (Opsumit 10 mg oral tablet) 1 Tablets By Mouth Every day Contact prescribing physician if questions or concerns Unchanged NIFEdipine (Procardia) Contact prescribing physician if questions or concerns Unchanged ranitidine (Zantac) Contact prescribing physician if questions or concerns Unchanged sulfasalazine (sulfasalazine 500 mg oral enteric coated tablet) Contact prescribing physician if questions or concerns Pharmacy Information [facility]22: [address] [place], [place] [id number] [phone] Allergies Augmentin (Rash) amoxicillin (Rash) Problems Ongoing - Any problem that you are currently receiving treatment for. Anemia Anticoagulant long-term use BMI 33.0-33.9,adult GERD (gastroesophageal reflux disease) Heart disease Incomplete bladder emptying OAB (overactive bladder) Personal history of kidney stones Pulmonary hypertension Rheumatoid arthritis Scleroderma Seasonal allergies Ureteral stricture Urge incontinence Patient Survey You may receive a survey via text or e-mail asking about your office visit. Please share your experience with us by completing your survey. We appreciate your feedback and thank you for choosing us for your care. Education Materials Overactive Bladder, Adult Overactive bladder is a condition in which a person has a sudden and frequent need to urinate. A person might also leak urine if he or she cannot get to the bathroom fast enough (urinary incontinence). Sometimes, symptoms can interfere with work or social activities. What are the causes? Overactive bladder is associated with poor nerve signals between your bladder and your brain. Your bladder may get the signal to empty before it is full. You may also have very sensitive muscles that make your bladder squeeze too soon. This condition may also be caused by other factors, such as: ??? Medical conditions: ? Urinary tract infection. ? Infection of nearby tissues. ? Prostate enlargement. ? Bladder stones, inflammation, or tumors. ? Diabetes. ? Muscle or nerve weakness, especially from these conditions: ? A sp (more content not included)... Normal [facility] Urology Office/Clinic Noteon 08-14-2024 Urology Office/Clinic Note Urology Office/Clinic Note Chief Complaint OAB HPI Staff 6 month f/u with PVR. S/p Botox 03/28/21 Dx: OAB, incomplete bladder emptying, personal history of kidney stones *Tolterodine 4mg ER increased from 2 caps qd, - to 2 tabs in the morning and 1 tab at night Dysuria: denies Incomplete bladder emptying: denies Hematuria: denies Frequency: denies Urgency: only if she holds it too long Nocturia: 2x Stream: good steady no straining Leaking: denies Post void dripping: denies Wearing pads/ Depends: wears a pad just in case Urge incontinence: denies Stress incontinence: denies Incontinence without Sensory Awareness: denies Abdominal pain: denies Flank pain: denies Sexual complaints: denies History of Present Illness Tests reviewed: reviewed UA. I have reviewed the previous health record information and history for this patient from Dr. Joe I have reviewed and verified the staff HPI to be accurate for this encounter. There have been no associated fever, chills, flank pain, or blood in the urine. Denies any urinary infections since last encounter. Review of Systems PHQ Score Initial Depression Screen Score: 0 SCORE ROS - Provider Constitutional: denies weight loss, denies hot flashes. Eyes: denies eye problems. Gastrointestinal: denies nausea, denies vomiting. Cardiovascular: denies chest pain or angina. Integumentary: no dryness Musculoskeletal: denies musculoskeletal symptoms. ENMT: denies otolaryngeal symptoms. Respiratory: no shortness of breath. Heme/Lymph: denies easy bleeding tendency, denies easy bruising tendency. Psychiatric: no confusion, no anxiety. Genitourinary: See HPI. Physical Exam Vitals & Measurements T: 37 ???C(Temporal Artery) HR: 68(Peripheral) RR: 18 BP: 130/70 HT: 60 in HT: 152 cm WT: 78.1 kg WT: 172.181 lb BMI: 33.8 General Appearance: alert , no acute distress, well nourished, well developed female. Assessment/Plan 1. OAB (overactive bladder) (N32.81: Overactive bladder) S/p Botox 03/28/21. UA today negative for blood or infection. Taking Tolterodine ER 4mg 2 tabs in the morning and 1 tab qhs. Denies SE. Pt states it's working . Denies urgency or incontinence. Nocturia 2x. -Cont Tolterodine ER 4mg 2 tabs AM, 1 tab PM, refill sent -F/up in 1 year 2. Incomplete bladder emptying (R33.9: Retention of urine, unspecified) PVR (cc): 02/04/23 - 47 08/14/24 - 12 Pt reports she sits on the toilet for 2-3 minutes to ensure she empties. Leans back and forth and presses on her bladder. 3. Personal history of kidney stones (Z87.442: Personal history of urinary calculi) Last stone episode 2017. KUB 02/21/21 - negative. Renal US 01/28/23 - negative for stones and hydro. -Continue increased water intake and add clear soda Follow-up With When Contact Information JUNIOR JIMENEZ, Frank Lea, URL [address] [place] [address]- Additional Instructions: 1 year Patient Education Overactive Bladder, Adult I, Kayli Garrido, personally scribed for Dr. Joe on 08/14/2024 09:00:15. . Documentation recorded by the scribe, Kayli Garrido, accurately reflects the services(s) I performed and decisions made by me. Authenticated by Dr. Joe on 08/14/2024 09:01:20. Problem List/Past Medical History Ongoing Anemia Anticoagulant [...] enteric coated tablet tolterodine 4 mg Cap-ER, 4 mg= 1 cap(s), Oral, As Directed, 11 refills Zantac Allergies Augmentin (Rash) amoxicillin (Rash) Social History Alcohol Current. Wine. 1-2 times per year., 08/14/2024 Substance Abuse Never., 08/14/2024 Tobacco Former smoker, quit more than 30 days ago Tobacco Use:. Household tobacco concerns: No. Yes, 08/14/2024 Family History Hyperlipidemia: Father. Hypertension: Mother and Father. Primary malignant neoplasm of female genital organ: Mother. Immunizations Vaccine Date Status Comments influenza virus vaccine, inactivated 05/22/2022 Recorded SARS-CoV-2 (COVID-19) mRNA-1273 vaccine 08/16 (more content not included)... Normal [facility] Comment on above: Result Comment: Elec tronically Signed By: Frank JOE MD\.br\Date and Time Signed: 08/14/24 09:01 EST\.br\Electronically Co-Signed By: Kayli Garrido.br\Date and Time Co-Signed: 08/14/24 09:00 EST ALL CBC WITH AUTO DIFFon BASOPHILS ABSOLUTE AUTO 0.1 [facility] Basophils/100 WBC (Bld) 0.9 % 0.2 - 2.0 % [facility] Eosinophils/100 WBC (Bld) 3.9 % 0.9 - 7.0 % [facility] Erythrocyte distribution width (RBC) [Ratio] 13 % 11.0 - 15.0 % [facility] Hematocrit (Bld) [Volume fraction] 37.6 % 36.0 - 48.0 % [facility] Hemoglobin (Bld) [Mass/Vol] 12 g/dL 12.0 - 16.0 g/dL [facility] IMMATURE GRANULOCYTES ABS AUTO 0.03 [facility] Immature granulocytes/100 WBC (Bld) 0.3 % 0.0 - 0.5 % [facility] Interpretation and review of laboratory results Abnormal [facility] LYMPHOCYTES ABSOLUTE [facility] 2[facility]4 [facility] Lymphocytes/100 WBC (Bld) 26.5 % 20.5 - 60.0 % [facility] MCH (RBC) [Entitic mass] 27.8 pg 26.7 - 34.0 pg [facility] MCHC (RBC) [Mass/Vol] 31.9 g/dL 29.9 - 35.2 g/dL [facility] MCV (RBC) [Entitic vol] 87.2 fL 81.0 - 99.0 fL [facility] MONOCYTES ABSOLUTE AUTO 0.9 High N [facility] Monocytes/100 WBC (Bld) 9.8 % 1.7 - 12.0 % [facility] NEUTROPHILS ABSOLUTE AUTO 5.3 [facility] Neutrophils/100 WBC (Bld) 58.6 % 43.0 - 75.0 % [facility] Platelet mean volume (Bld) [Entitic vol] 10.2 fL 9.5 - 13.5 fL [facility] TBH EO # 0.4 [facility]H PLT 243 [facility] TB RBC 4.31 [facility] TB WBC 9 [facility] Healthcare Office Visiton 07-14-2024 Follow-up visit [id number] Sylvia Moon 1965 F Date Provider Department Center 07/14/2024 Mia-FLORY PRUITT [facility] Family History Problem Relation Age of Onset Hypertension Mother Hypertension Father Family Status - Relation Status Age at Mother Father Level of Service:20590 [place] OFFICE/OUTPATIENT ESTABLISHED MOD MDM 30 MIN Reason for Visit and Comments: Follow-up [056219] Normal [facility] ALL CBC WITH AUTO DIFFon BASOPHILS ABSOLUTE AUTO 0.1 N [facility] [place] [facility] Basophils/100 WBC (Bld) 0.9 % 0.2 - 2.0 % [facility] Eosinophils/100 WBC (Bld) 3.5 % 0.9 - 7.0 % [facility] Erythrocyte distribution width (RBC) [Ratio] 13.4 % 11.0 - 15.0 % [facility] Hematocrit (Bld) [Volume fraction] 36.5 % 36.0 - 48.0 % [facility] Hemoglobin (Bld) [Mass/Vol] 12 g/dL 12.0 - 16.0 g/dL [facility] IMMATURE GRANULOCYTES ABS AUTO 0.02 [facility] Immature granulocytes/100 WBC (Bld) 0.2 % 0.0 - 0.5 % [facility] Interpretation and review of laboratory results Abnormal [facility] Healthcare LYMPHOCYTES ABSOLUTE AUTO 2 [facility] Lymphocytes/100 WBC (Bld) 24.3 % 20.5 - 60.0 % [facility] MCH (RBC) [Entitic mass] 28.8 pg 26.7 [...] [facility] TBH PLT 271 [facility] TBH RBC 4.17 Low [facility]H WBC 8 [facility] ALL SED RATEon 03-23-2024 TBH SED RATE 13 NINF [facility] 29on 03-05-2024 29 Addended by: FELI HURLEY on: 03/05/2024 01:13 PM Modules accepted: Orders Normal [facility] Office Visiton 03-05-2024 Follow-up visit [id number] Sylvia Moon 1965 F Date Provider Department Center 03/05/2024 FLORY PARIS [facility] Family History Problem Relation Age of Onset Hypertension Mother Hypertension Father Family Status - Relation Status Age at Mother Father Level of Service:00519 [place] OFFICE/OUTPATIENT ESTABLISHED MOD MDM 30 MIN Normal [facility] Urology Office/Clinic Noteon 02-07-2024 Urology Office/Clinic Note Urology Office/Clinic Note Chief Complaint OAB HPI Staff 1 year f/u Dx: OAB, incomplete bladder emptying and personal hx of kidney stones Tolterodine 4mg ER 2 caps qd Dysuria: no Incomplete bladder emptying: no Hematuria: no Frequency: no Urgency: no Nocturia: 0-1x Stream: good steady Leaking: no Post void dripping: no Wearing pads/ Depends: no Urge incontinence: no Stress incontinence: no Incontinence without Sensory Awareness: no Abdominal pain: no Flank pain: no Sexual complaints: no History of Present Illness Tests reviewed: reviewed UA. I have reviewed the previous health record information and history for this patient from Dr. Jeo. I have reviewed and verified the staff HPI to be accurate for this encounter. There have been no associated fever, chills, flank pain, or blood in the urine. Denies any urinary infections since last encounter. Review of Systems PHQ Score Initial Depression Screen Score: 0 SCORE ROS - Provider Constitutional: denies weight loss, denies hot flashes. Eyes: denies eye problems. Gastrointestinal: denies nausea, denies vomiting. Cardiovascular: denies chest pain or angina. Integumentary: no dryness Musculoskeletal: denies musculoskeletal symptoms. ENMT: denies otolaryngeal symptoms. Respiratory: no shortness of breath. Heme/Lymph: denies easy bleeding tendency, denies easy bruising tendency. Psychiatric: no confusion, no anxiety. Genitourinary: See HPI. Physical Exam Vitals & Measurements T: 37 ?C(Temporal Artery) HR: 80(Peripheral) RR: 16 BP: 138/86 HT: 60 in HT: 152 cm WT: 77.5 kg WT: 170.5 lb BMI: 33.54 General Appearance: alert , no acute distress, well nourished, well developed female. Assessment/Plan 1. OAB (overactive bladder) (N32.81: Overactive bladder) S/p Botox 03/28/21. UA today neg. Taking Tolterodine ER 4mg 2 tabs qd. Taking AM/PM. Denies SE. Still experiences mild urgency but overall has improved from baseline. Feels urgency is worse in the afternoon. Denies incontinence. Discussed the possibility of increasing dosage to see if overall urgency improves. Pt agrees. Will have pt increase dosage to take 2 tabs in the morning and 1 tab at night. New script sent. -Increase Tolterodine to tid, 2 tabs in the morning and 1 tab at night -Follow up in 6 mos to reassess sx 2. Incomplete bladder emptying (R33.9: Retention of urine, unspecified) PVR (cc): 02/04/23 - 47 Unable to perform PVR today due to machine being out of service. Pt reports she sits on the toilet for 2-3 minutes to ensure she empties. Leans back and forth and presses on her bladder. -Timed voids -Cont emptying maneuvers -Will check PVR at next visit 3. Personal history of kidney stones (Z87.442: Personal history of urinary calculi) Last stone episode was in 2018. KUB 02/21/21 - negative. Renal US 01/28/23 - negative for stones and hydro. -Continue increased water intake and add clear soda Follow-up With When Contact Information JUNIOR JIMENEZ, Frank Lea, URL [address] [place] [address]- Additional Instructions: 6 mos w/ PVR Patient Education Overactive Bladder, Adult I, Kayli Garrido, personally scribed for Dr. Joe on 02/07/2024 08:41:12. . Documentation recorded by the scribe, Kayli Garrido, accurately reflects the services(s) I performed and decisions made by me. Authenticated by Dr. Joe on 02/07/2024 08:44:28. Problem List/Past Medical History Ongoing Anemia Anticoagulant [...] 45 Years. Household tobacco concerns: No. Yes, 02/07/2024 Family History Hyperlipidemia: Father. Hypertension: Mother and Father. Primary malignant neoplasm of female genital org (more content not included)... Normal [facility] Comment on above: Result Comment: Elec tronically Signed By: Frank JOE MD\.br\Date and Time Signed: 02/07/24 08:44 EDT\.br\Electronically Co-Signed By: Kayli Garrido.br\Date and Time Co-Signed: 02/07/24 08:42 EDT 36on 01-31-2024 36 Reorder Per Prior Authorization Patients medication needs to go to [facility]. Medication has been sent [facility] Documentationon 12-25-2023 Documentation [id number] AldSylvia weston 1965 F Date Provider Department Center 12/25/2023 3029-ZACHERY BANEGAS [facility] Mulligan Count Family History Problem Relation Age of Onset Hypertension Mother Hypertension Father Family Status - Relation Status Age at Mother Father Reason for Visit and Comments: Prior Authorization [826] - Opsumit Denied Please see note [facility] HPon 12-18-2023 HP H&P reviewed. The patient was examined and there are no changes to the H&P. 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 Will proceed with RHC for further assessment. Procedure's details, risks and benefits discussed with the patient and she's agreeable. [facility] NURSNOTEon 12-18-2023 NURSNOTE RN educated pt on d/ c instructions. RN encouraged pt to voice any questions or concerns. Pt verbalizes no questions or concerns at this time. Pt was walked off of unit with all of belongings. [facility] CT CHEST WO CONTRASTon 12-14 CT CHEST [...] Shar Chery MD 12/15/23 Final result Normal [facility] Abstracton 12-05-2023 Abstract [id number] Aldarom,Earlynne 1965 F Date Provider Department [facility] Family History Problem Relation Age of Onset Hypertension Mother Hypertension Father Family Status - Relation Status Age at Mother Father Normal [facility] 36on 12-04-2023 36 Thank you for the information. We will get this sent to another pharmacy Normal [facility] 12-04-2023 - Attestation signed by Flory [...] (CMS/HCC) Chest pain Coronary artery disease involving [place] coronary artery of [place] heart without angina pectoris Deficiency anemia Essential [...] exam H (more content not included)... Normal [facility] Office Visiton 12-04-2023 [id number] 1965 [facility] 12/04/2023 FLORY PARIS KEVIN Luciacatalina Helms Family History Problem Relation Age of Onset Hypertension Mother Hypertension Father Family Status - Relation Status Age at Mother Father Level of Service:42378 [place] OFFICE/OUTPATIENT ESTABLISHED MOD MDM 30 MIN (GC) [facility] Office Visiton 09-03-2023 Follow-up visit [id number] [facility] 1965 Provider Department Center 09/03/2023 FLORY PARIS Family History Problem Relation Age of Onset Hypertension Mother Hypertension Father Family Status - Relation Status Age at Mother Father Level of Service:86647 [place] OFFICE/OUTPATIENT ESTABLISHED MOD MDM 30 MIN Normal [facility] CBC AUTO DIFFon 11-06-2022 BASO # 0.1 103/ul Normal 0.0-0.1 [facility] Comment on above: Performed By: #### C BC #### [facility] [address] [address] [address] Stefany Corral Basophils/100 WBC (Bld) 0.7 % Normal 0.2-2.0 [facility] Comment on above: Performed By: #### C BC #### [facility] [address] [place] [address] Dr. Stefany Corral EO # 0.3 103/ul Normal 0.0-0.7 [facility] Comment on above: Performed By: #### C BC #### [facility] [address] [place] [address] Dr. Stefany Corral Eosinophils/100 WBC (Bld) 3.0 % Normal 0.9-7.0 [facility] Comment on above: Performed By: #### C BC #### [facility] [address] [place] [address] Dr. Stefany Corral Erythrocyte distribution width (RBC) [Ratio] 15.1 % Critically high 11.0-15.0 [facility] Comment on above: Performed By: #### C BC #### [facility] [address] [place] [address] Dr. Stefany Corral Hematocrit (Bld) [Volume fraction] 36.2 % Normal 36.0-48.0 [facility] Comment on above: Performed By: #### C BC #### [facility] [address] [place] [address] Dr. Stefany Corral Hemoglobin (Bld) [Mass/Vol] 12.0 g/dL Normal 12.0-16.0 [facility] Comment on above: Performed By: #### C BC #### [facility] [address] [place] [address] Dr. Stefany Corral IG # 0.03 10e3/ul Normal 0.00-0.03 [facility] Comment on above: Performed By: #### C BC #### [facility] [address] [place] [address] Dr. Stefany Corral IG % 0.3 % Normal 0.0-0.5 [facility] Comment on above: Performed By: #### C BC #### [facility] [address] [place] [address] Dr. Stefany Corral LYMPH # 2.4 103/ul Normal 1.2-3.8 [facility] Comment on above: Performed By: #### C BC #### [facility] [address] [place] [address] Dr. Stefany Corral Lymphocytes/100 WBC (Bld) 27.4 % Normal 20.5-60.0 [facility] Comment on above: Performed By: #### C BC #### [facility] [address] [place] [address] Dr. Stefany Corral MANUAL DIFF REQ NO Normal [facility] Comment on above: Performed By: #### C BC #### [facility] [address] [place] [address] Dr. Stefany Corral MCH (RBC) [Entitic mass] 28.4 pg Normal 26.7-34.0 [facility] Comment on above: Performed By: #### C BC #### [facility] [address] [place] [address] Dr. Stefany Corral MCHC (RBC) [Mass/Vol] 33.1 g/dL Normal 29.9-35.2 [facility] Comment on above: Performed By: #### C BC #### [facility] [address] [place] [address] Dr. Stefany Corral MCV (RBC) [Entitic vol] 85.6 fL Normal 81.0-99.0 [facility] Comment on above: Performed By: #### C BC #### [facility] [address] [place] [address] Dr. Stefany Corral MONO # 1.0 103/ul Critically high 0.3-0.8 [facility] Comment on above: Performed By: #### C BC #### [facility] [address] [place] [address] Dr. Stefany Corral Monocytes/100 WBC (Bld) 11.2 % Normal 1.7-12.0 [facility] Comment on above: Performed By: #### C BC #### [facility] [address] [place] [address] Dr. Stefany Corral NEUT # 5.0 103/ul Normal 1.4-6.5 [facility] Comment on above: Performed By: #### C BC #### [facility] [address] [address] [address] Stefany Corral Neutrophils/100 WBC (Bld) 57.4 % Normal 43.0-75.0 [facility] Comment on above: Performed By: #### C BC #### [facility] [address] [place] [address] Dr. Stefany Corral Platelet mean volume (Bld) [Entitic vol] 10.0 fL Normal 9.5-13.5 [facility] Comment on above: Performed By: #### C BC #### [facility] [address] [address] [address] Stefany Corral PLT 321 103/ul Normal 150-450 [facility] Comment on above: Performed By: #### C BC #### [facility] [address] [place] [address] Dr. Stefany Corral RBC 4.23 106/ul Normal 4.20-5.40 [facility] Comment on above: Performed By: #### C BC #### [facility] [address] [place] [address] Dr. Stefany Corral WBC 8.6 103/ul Normal 4.0-11.0 [facility] Comment on above: Performed By: #### C BC #### [facility] [address] [place] [address] Dr. Stefany Corral CREATININEon 11-06-2022 Creatinine [Mass/Vol] 1.14 mg/dL Critically high 0.55-1.02 [facility] Comment on above: Performed By: #### PETRONA MILAN #### [facility] [address] [place] [address] Dr. Stefany Corral EGFR-AF TONGAN 59 mL/min/1.73m2 Critically low >=60 [facility] Comment on above: Performed By: #### PETRONA MILAN #### [facility] [address] [place] [address] Dr. Stefany Corral EGFR-NON AF TONGAN 49 mL/min/1.73m2 Critically low >=60 [facility] Comment on above: Performed By: #### PETRONA MILAN #### [facility] [address] [address] [address] Stefany Corral LIVER PROFILEon 11-06-2022 Albumin [Mass/Vol] 3.5 g/dL Normal 3.4-5.0 [facility] Comment on above: Performed By: #### L NEEMA CREA #### [facility] [address] [address] [address] Stefany Corral Albumin/Globulin [Mass ratio] 0.9 {ratio} Normal [facility] Comment on above: Performed By: #### L NEEMA CREA #### [facility] [address] [address] [address] Stefany Corral ALP [Catalytic activity/Vol] 124 U/L Critically high 46-116 [facility] Comment on above: Performed By: #### L NEEMA CREA #### [facility] [address] [place] [address] Dr. Stefany Corral ALT [Catalytic activity/Vol] 18 U/L Normal 14-59 [facility] Comment on above: Performed By: #### Pawel BETHEA CREA #### [facility] [address] [place] [address] Dr. Stefany Corral AST [Catalytic activity/Vol] 16 U/L Normal 15-37 [facility] Comment on above: Performed By: #### Pawel BETHEA CREA #### [facility] [address] [place] [address] Dr. Stefany Corral BILI, CONJUGATED 0.0 mg/dL Normal 0.0-0.2 [facility] Comment on above: Performed By: #### Pawel BETHEA CREA #### [facility] [address] [place] [address] Dr. Stefany Corral Bilirubin [Mass/Vol] 0.2 mg/dL Normal 0.2-1.0 [facility] Comment on above: Performed By: #### L NEEMA CREA #### [facility] [address] [place] [address] Dr. Stefany Corral Globulin (S) [Mass/Vol] 4.0 g/dL Normal T [facility] Comment on above: Performed By: #### L PETRONA BETHEA #### [facility] [address] [place] [address] Dr. Stefany Corral Protein [Mass/Vol] 7.5 g/dL Normal 6.4-8.2 [facility] Comment on above: Performed By: #### L PETRONA BETHEA #### [facility] [address] [place] [address] Dr. Stefany Corral SED RATE WESTERGRENon 2022 SED RATE 19 mm/hr Normal <=30 [facility] Comment on above: Performed By: #### S EDR #### [facility] [address] [place] [address] Dr. Stefany Corral CBC AUTO DIFFon 09-11-2022 BASO # 0.1 103/ul Normal 0.0-0.1 [facility] Comment on above: Performed By: #### C BC #### [facility] [address] [place] [address] Dr. Stefany Corral Basophils/100 WBC (Bld) 0.6 % Normal 0.2-2.0 [facility] Comment on above: Performed By: #### C BC #### [facility] [address] [place] [address] Dr. Stefany Corral EO # 0.1 103/ul Normal 0.0-0.7 [facility] Comment on above: Performed By: #### C BC #### [facility] [address] [place] [address] Dr. Stefany Corral Eosinophils/100 WBC (Bld) 1.4 % Normal 0.9-7.0 [facility] Comment on above: Performed By: #### C BC #### [facility] [address] [place] [address] Dr. Stefany Corral Erythrocyte distribution width (RBC) [Ratio] 13.7 % Normal 11.0-15.0 [facility] Comment on above: Performed By: #### C BC #### [facility] [address] [place] [address] Dr. Stefany Corral Hematocrit (Bld) [Volume fraction] 40.2 % Normal 36.0-48.0 [facility] Comment on above: Performed By: #### C BC #### [facility] [address] [place] [address] Dr. Stefany Corral Hemoglobin (Bld) [Mass/Vol] 13.4 g/dL Normal 12.0-16.0 [facility] Comment on above: Performed By: #### C BC #### [facility] [address] [place] [address] Dr. Stefany Corral IG # 0.03 10e3/ul Normal 0.00-0.03 [facility] Comment on above: Performed By: #### C BC #### [facility] [address] [place] [address] Dr. Stefany Corral IG % 0.3 % Normal 0.0-0.5 [facility] Comment on above: Performed By: #### C BC #### [facility] [address] [place] [address] Dr. Stefany Corral LYMPH # 2.4 103/ul Normal 1.2-3.8 [facility] Comment on above: Performed By: #### C BC #### [facility] [address] [place] [address] Dr. Stefany Corral Lymphocytes/100 WBC (Bld) 27.4 % Normal 20.5-60.0 [facility] Comment on above: Performed By: #### C BC #### [facility] [address] [place] [address] Dr. Stefany Corral MANUAL DIFF REQ NO Normal [facility] Comment on above: Performed By: #### C BC #### [facility] [address] [place] [address] Dr. Stefany Corral MCH (RBC) [Entitic mass] 27.5 pg Normal 26.7-34.0 [facility] Comment on above: Performed By: #### C BC #### [facility] [address] [place] [address] Dr. Stefany Corral MCHC (RBC) [Mass/Vol] 33.3 g/dL Normal 29.9-35.2 [facility] Comment on above: Performed By: #### C BC #### [facility] [address] [address] [address] Stefany Corral MCV (RBC) [Entitic vol] 82.4 fL Normal 81.0-99.0 [facility] Comment on above: Performed By: #### C BC #### [facility] [address] [address] [address] Stefany Corral MONO # 0.8 103/ul Normal 0.3-0.8 [facility] Comment on above: Performed By: #### C BC #### [facility] [address] [place] [address] Dr. Stefany Corral Monocytes/100 WBC (Bld) 8.6 % Normal 1.7-12.0 [facility] Comment on above: Performed By: #### C BC #### [facility] [address] [place] [address] Dr. Stefany Corral NEUT # 5.5 103/ul Normal 1.4-6.5 [facility] Comment on above: Performed By: #### C BC #### [facility] [address] [place] [address] Dr. Stefany Corral Neutrophils/100 WBC (Bld) 61.7 % Normal 43.0-75.0 [facility] Comment on above: Performed By: #### C BC #### [facility] [address] [place] [address] Dr. Stefany Corral Platelet mean volume (Bld) [Entitic vol] 10.2 fL Normal 9.5-13.5 [facility] Comment on above: Performed By: #### C BC #### [facility] [address] [place] [address] Dr. Stefany Corral PLT 326 103/ul Normal 150-450 [facility] Comment on above: Performed By: #### C BC #### [facility] [address] [place] [address] Dr. Stefany Corral RBC 4.88 106/ul Normal 4.20-5.40 [facility] Comment on above: Performed By: #### C BC #### [facility] [address] [place] [address] Dr. Stefany Corral WBC 8.9 103/ul Normal 4.0-11.0 [facility] Comment on above: Performed By: #### C BC #### [facility] [address] [place] [address] Dr. Stefany Corral CREATININEon 09-11-2022 Creatinine [Mass/Vol] 1.34 mg/dL Critically high 0.55-1.02 [facility] Comment on above: Performed By: #### PETRONA MILAN #### [facility] [address] [place] [address] Dr. Stefany Corral EGFR-AF TONGAN 49 mL/min/1.73m2 Critically low >=60 [facility] Comment on above: Performed By: #### PETRONA MILAN #### [facility] [address] [place] [address] Dr. Stefany Corral EGFR-NON AF TONGAN 41 mL/min/1.73m2 Critically low >=60 [facility] Comment on above: Performed By: #### PETRONA MILAN #### [facility] [address] [place] [address] Dr. Stefany Corral LIVER PROFILEon 09-11-2022 Albumin [Mass/Vol] 3.8 g/dL Normal 3.4-5.0 [facility] Comment on above: Performed By: #### PETRONA MILAN #### [facility] [address] [place] [address] Dr. Stefany Corral Albumin/Globulin [Mass ratio] 0.9 {ratio} Normal [facility] Comment on above: Performed By: #### PETRONA MILAN #### [facility] [address] [place] [address] Dr. Stefany Corral ALP [Catalytic activity/Vol] 114 U/L Normal 46-116 [facility] Comment on above: Performed By: #### PETRONA MILAN #### [facility] [address] [place] [address] Dr. Stefany Corral ALT [Catalytic activity/Vol] 12 U/L Critically low 14-59 [facility] Comment on above: Performed By: #### PETRONA MILAN #### [facility] [address] [place] [address] Dr. Stefany Corral AST [Catalytic activity/Vol] 17 U/L Normal 15-37 [facility] Comment on above: Performed By: #### PETRONA MILAN #### [facility] [address] [place] [address] Dr. Stefany Corral BILI, CONJUGATED 0.0 mg/dL Normal 0.0-0.2 [facility] Comment on above: Performed By: #### PETRONA MILAN #### [facility] [address] [place] [address] Dr. Stefany Corral Bilirubin [Mass/Vol] 0.2 mg/dL Normal 0.2-1.0 [facility] Comment on above: Performed By: #### PETRONA MILAN #### [facility] [address] [place] [address] Dr. Stefany Corral Globulin (S) [Mass/Vol] 4.3 g/dL Normal T [facility] Comment on above: Performed By: #### PETRONA MILAN #### [facility] [address] [place] [address] Dr. Stefany Corral Protein [Mass/Vol] 8.1 g/dL Normal 6.4-8.2 [facility] Comment on above: Performed By: #### PETRONA MILAN #### [facility] [address] [place] [address] Dr. Ste[facility]any Cor[facility] mm/hr Critically high <=30 [facility] Comment on above: Performed By: #### S EDR #### [facility] [address] [place] [address] Dr. Stefany Corral XR chest 2V*on 08-13-2022 XR chest 2V* [facility] [place] [address] [place] [address] XRay Report Signed Patient: Sylvia Bass MR#: [id number] : 1965 Acct:[id number] Age/Sex: 57 / F ADM Date: 08/13/22 Loc: XD Room: Type: [facility] Attending Dr: Giacomo Benitez DPM Copies to: [...] Devonte Platt M.D.08/13/2022 2:42 PM Dictation Location: [address] [address] Transcribed By: [facility] 08/13/22 1442 Dictated By: Devonte Platt DO 08/13/22 1441 Signed By: 08/13/22 1442 Normal [facility] Basic Metabolic Panelon 12-2 Anion gap [Moles/Vol] 15.3 mmol/L High 6.0-15.0 [facility] Comment on above: Order Comment: PT IS NON FASTING Reason for Exam HAV (hallux abducto valgus), left;Metatarsalgia of right michelet Performed By: #### C VIVIANA, BMP #### [facility] [address] [place] [address] Calcium [Mass/Vol] 9.2 mg/dL Normal 8.2-10.2 [facility] Comment on above: Order Comment: PT IS NON FASTING Reason for Exam HAV (hallux abducto valgus), left;Metatarsalgia of right michelet Result Comment: PERF ORMED BY: [place] [address] PATHOLOGIST [employer] JESUSITA NICHOLE M.D. Performed By: #### C VIVIANA, BMP #### [id number] [facility] Chloride [Moles/Vol] 98 mmol/L Normal 95-114 [facility] Comment on above: Order Comment: PT IS NON FASTING Reason for Exam HAV (hallux abducto valgus), left;Metatarsalgia of right michelet Performed By: #### C BC, BMP #### [facility] [address] [id number] [facility] CO2 [Moles/Vol] 23.6 mmol/L Normal 22.0-30.0 [facility] Comment on above: Order Comment: PT IS NON FASTING Reason for Exam HAV (hallux abducto valgus), left;Metatarsalgia of right michelet Performed By: #### C BC, BMP #### [facility] [address] Creatinine [Mass/Vol] 1.48 mg/dL High 0.44-1.03 [facility] Comment on above: Order Comment: PT IS NON FASTING Reason for Exam HAV (hallux abducto valgus), left;Metatarsalgia of right michelet Performed By: #### C BC, BMP #### [facility] [address] Estimated GFR ( Shandra 44 [facility] Comment on above: Order Comment: PT IS NON FASTING Reason for Exam HAV (hallux abducto valgus), left;Metatarsalgia of right michelet Result Comment: GFR estimated reference range: According to KDOQI guidelines, <60 ml/min/1.73m2 is sufficient to diagnose a patient with chronic kidney disease. Performed By: #### C BC, BMP #### [facility] [address] [id number] [place] Estimated GFR (Non- Am 36 [facility] Comment on above: Order Comment: PT IS NON FASTING Reason for Exam HAV (hallux abducto valgus), left;Metatarsalgia of right michelet Performed By: #### C BC, BMP #### [facility] [address] [id number] [facility] Glucose [Mass/Vol] 95 mg/dL Normal 70-100 [facility] Comment on above: Order Comment: PT IS NON FASTING Reason for Exam HAV (hallux abducto valgus), left;Metatarsalgia of right michelet Result Comment: [facility] Glucose Reference Range is dependent on time and content of last meal. Glucose of more than 200 mg/dL in a nonstressed, ambulatory subject supports the diagnosis of Diabetes Mellitus. ADA recommended reference range Performed By: #### C BC, BMP #### [facility] [address] Potassium [Moles/Vol] 3.9 mmol/L Normal 3.5-5.1 [facility] Comment on above: Order Comment: PT IS NON FASTING Reason for Exam HAV (hallux abducto valgus), left;Metatarsalgia of right michelet Performed By: #### C BC, BMP #### [facility] [address] Sodium [Moles/Vol] 133 mmol/L Low 136-146 [facility] Comment on above: Order Comment: PT IS NON FASTING Reason for Exam HAV (hallux abducto valgus), left;Metatarsalgia of right michelet Performed By: #### C BC, BMP #### [facility] [address] Urea nitrogen [Mass/Vol] 29 mg/dL High 9-23 [facility] Comment on above: Order Comment: PT IS NON FASTING Reason for Exam HAV (hallux abducto valgus), left;Metatarsalgia of right michelet Performed By: #### C BC, BMP #### [facility] [address] Basophils Auto (Bld) [#/Vol] Ordered By: Josefa Martinez on 07-25-2022 Basophils (Bld) [#/Vol] 0.0 10*3/uL 0.0-0.2 [facility] Basophils/100 WBC Auto (Bld) Ordered By: Josefa Martinez on 07-25-2022 Basophils/100 WBC (Bld) 0.4 % . F [facility] Complete Blood Count Auto Di ffon 07-25-2022 Basophils (Bld) [#/Vol] 0.0 10*3/uL Normal 0.0-0.2 [facility] Comment on above: Order Comment: Reaso n for Exam HAV (hallux abducto valgus), left;Metatarsalgia of right michelet Result Comment: PERF ORMED BY: [place] [address] PATHOLOGIST [employer] JESUSITA NICHOLE M.D. Performed By: #### C BC, BMP #### [address] Basophils/100 WBC (Bld) 0.4 % Normal . [facility] Comment on above: Order Comment: Reaso n for Exam HAV (hallux abducto valgus), left;Metatarsalgia of right michelet Performed By: #### C BC, BMP #### [address] Eosinophils (Bld) [#/Vol] 0.5 10*3/uL High 0.0-0.45 [facility] Comment on above: Order Comment: Reaso n for Exam HAV (hallux abducto valgus), left;Metatarsalgia of right michelet Performed By: #### C BC, BMP #### [place] [address] [place] Eosinophils/100 WBC (Bld) 6.1 % Normal . [facility] Comment on above: Order Comment: Reaso n for Exam HAV (hallux abducto valgus), left;Metatarsalgia of right michelet Performed By: #### C BC, BMP #### [address] Erythrocyte distribution width (RBC) [Ratio] 14.9 % Normal 11.9-15.3 [facility] Comment on above: Order Comment: Reaso n for Exam HAV (hallux abducto valgus), left;Metatarsalgia of right michelet Performed By: #### C BC, BMP #### [address] Hematocrit (Bld) [Volume fraction] 38.3 % Normal 34.0-46.4 [facility] Comment on above: Order Comment: Reaso n for Exam HAV (hallux abducto valgus), left;Metatarsalgia of right michelet Performed By: #### C BC, BMP #### [address] Hemoglobin (Bld) [Mass/Vol] 12.5 g/dL Normal 11.8-15.4 [facility] Comment on above: Order Comment: Reaso n for Exam HAV (hallux abducto valgus), left;Metatarsalgia of right michelet Performed By: #### C BC, BMP #### [address] Lymphocytes (Bld) [#/Vol] 2.6 10*3/uL Normal 1.00-4.8 [facility] Comment on above: Order Comment: Reaso n for Exam HAV (hallux abducto valgus), left;Metatarsalgia of right michelet Performed By: #### C BC, BMP #### [address] Lymphocytes/100 WBC (Bld) 32.8 % Normal . [facility] Comment on above: Order Comment: Reaso n for Exam HAV (hallux abducto valgus), left;Metatarsalgia of right michelet Performed By: #### C BC, BMP #### [address] MCH (RBC) [Entitic mass] 27.1 pg Normal 24.7-34.3 [facility] Comment on above: Order Comment: Reaso n for Exam HAV (hallux abducto valgus), left;Metatarsalgia of right michelet Performed By: #### C BC, BMP #### [address] MCV (RBC) [Entitic vol] 83.2 fL Normal 80-100 [facility] Comment on above: Order Comment: Reaso n for Exam HAV (hallux abducto valgus), left;Metatarsalgia of right michelet Performed By: #### C BC, BMP #### [address] [place] [address] [place] Mean Corpuscular HGB Conc 32.5 g/dL Normal 32.0-35.0 [facility] Comment on above: Order Comment: Reaso n for Exam HAV (hallux abducto valgus), left;Metatarsalgia of right michelet Performed By: #### C BC, BMP #### [facility] [address] [place] [address] [place] Monocytes (Bld) [#/Vol] 1.0 10*3/uL High 0.0-0.8 [facility] Comment on above: Order Comment: Reaso n for Exam HAV (hallux abducto valgus), left;Metatarsalgia of right michelet Performed By: #### C BC, BMP #### [facility] [address] [place] [address] [place] Monocytes/100 WBC (Bld) 12.5 % Normal . [facility] Comment on above: Order Comment: Reaso n for Exam HAV (hallux abducto valgus), left;Metatarsalgia of right michelet Performed By: #### C BC, BMP #### [facility] [address] [place] [address] [place] Neutrophils (Bld) [#/Vol] 3.8 10*3/uL Normal 1.8-7.7 [facility] Comment on above: Order Comment: Reaso n for Exam HAV (hallux abducto valgus), left;Metatarsalgia of right michelet Performed By: #### C BC, BMP #### [facility] [address] [place] [address] [place] Neutrophils/100 WBC (Bld) 48.2 % Normal . [facility] Comment on above: Order Comment: Reaso n for Exam HAV (hallux abducto valgus), left;Metatarsalgia of right michelet Performed By: #### C BC, BMP #### [facility] [address] [place] [address] [place] NRBC% 0.1 /100{WBC} Normal 0-0.5 [facility] Comment on above: Order Comment: Reaso n for Exam HAV (hallux abducto valgus), left;Metatarsalgia of right michelet Performed By: #### C BC, BMP #### [facility] [address] Platelet mean volume (Bld) [Entitic vol] 8.6 fL Normal 6.3-10.7 [facility] Comment on above: Order Comment: Reaso n for Exam HAV (hallux abducto valgus), left;Metatarsalgia of right michelet Performed By: #### C BC, BMP #### [facility] [address] Platelets (Bld) [#/Vol] 257 10*3/uL Normal 150-450 [facility] Comment on above: Order Comment: Reaso n for Exam HAV (hallux abducto valgus), left;Metatarsalgia of right michelet Performed By: #### C BC, BMP #### [facility] [address] RBC (Bld) [#/Vol] 4.60 10*6/uL Normal 3.60-5.00 [facility] Comment on above: Order Comment: Reaso n for Exam HAV (hallux abducto valgus), left;Metatarsalgia of right michelet Performed By: #### C BC, BMP #### [facility] [address] WBC (Bld) [#/Vol] 7.9 10*3/uL Normal 3.8-11.6 [facility] Comment on above: Order Comment: Reaso n for Exam HAV (hallux abducto valgus), left;Metatarsalgia of right michelet Performed By: #### C BC, BMP #### [facility] [address] Creatinine and Glomerular fi ltration rate.predicted panel (S/P/Bld)Ordered By: Josefa Martinez on 07-25-2022 Creatinine [Mass/Vol] 1.48 mg/dL 0.44-1.03 [facility] ECG 12 lead ECGon 07-25-2022 ECG 12 lead ECG [place] [address] Electrocardiograph Report Signed Patient: Sylvia Bass MR#: [id number] : 1965 Acct:[id number] Age/Sex: 57 / F ADM Date: 07/25/22 Loc: Room: Type: [facility] Attending Dr: Josefa Martinez [...] ECGs available Confirmed by JAN BALDERRAMA MD (Marjorie) on 07/25/2022 4:25:20 PM Referred By: JOSEFA MARTINEZ Electronically Signed By:JAN BALDERRAMA MD Transcribed By: MUS Signed By Jan Balderrama MD 1 09/25/21 1625 Normal [facility] Eosinophils Auto (Bld) [#/Vo l]Ordered By: Josefa Martinez on 07-25-2022 Eosinophils (Bld) [#/Vol] 0.5 10*3/uL 0.0-0.45 [facility] Eosinophils/100 WBC Auto (Bl d)Ordered By: Josefa Martinez on 07-25-2022 Eosinophils/100 WBC (Bld) 6.1 % . [facility] Erythrocyte distribution wid th Auto (RBC) [Ratio]Ordered By: Josefa Martinez on 07-25-2022 Erythrocyte distribution width (RBC) [Ratio] 14.9 % 11.9-15.3 [facility] Estimated glomerular filtrat ion rate (GFR) non- AmericanOrdered By: Josefa Martinez on 07-25-2022 GFR/1.73 sq M.predicted among non-blacks MDRD (S/P/Bld) [Vol rate/Area] 36 mL/Min [facility] Hematocrit Auto (Bld) [Volum e fraction]Ordered By: Josefa Martinez on 07-25-2022 Hematocrit (Bld) [Volume fraction] 38.3 % 34.0-46.4 [facility] Hemoglobin [Mass/volume] in BloodOrdered By: Josefa Martinez on 07-25-2022 Hemoglobin (Bld) [Mass/Vol] 12.5 g/dL 11.8-15.4 [facility] Leukocytes [#/volume] correc brendan for nucleated erythrocytes in Blood by Automated counOrdered By: Josefa Martinez on 07-25-2022 WBC corrected for nucl RBC Auto (Bld) [#/Vol] 7.9 10*3/uL 3.8-11.6 [facility] Lymphocytes Auto (Bld) [#/Vo l]Ordered By: Josefa Martinez on 07-25-2022 Lymphocytes (Bld) [#/Vol] 2.6 10*3/uL 1.00-4.8 [facility] Lymphocytes/100 WBC Auto (Bl d)Ordered By: Josefa Martinez on 07-25-2022 Lymphocytes/100 WBC (Bld) 32.8 % . [facility] MCH Auto (RBC) [Entitic mass ]Ordered By: Josefa Martinez on 07-25-2022 MCH (RBC) [Entitic mass] 27.1 pg 24.7-34.3 [facility] MCHC Auto (RBC) [Mass/Vol]Or dered By: Josefa Martinez on 07-25-2022 MCHC (RBC) [Mass/Vol] 32.5 g/dL 32.0-35.0 [facility] MCV Auto (RBC) [Entitic vol] Ordered By: Josefa Martinez on 07-25-2022 MCV (RBC) [Entitic vol] 83.2 fL 80-100 F [facility] Monocytes Auto (Bld) [#/Vol] Ordered By: Josefa Martinez on 07-25-2022 Monocytes (Bld) [#/Vol] 1.0 10*3/uL 0.0-0.8 [facility] Monocytes/100 WBC Auto (Bld) Ordered By: Josefa Martinez on 07-25-2022 Monocytes/100 WBC (Bld) 12.5 % . F [facility] Neutrophils Auto (Bld) [#/Vo l]Ordered By: Josefa Martinez on 07-25-2022 Neutrophils (Bld) [#/Vol] 3.8 10*3/uL 1.8-7.7 [facility] Neutrophils/100 WBC Auto (Bl d)Ordered By: Josefa Martinez on 07-25-2022 Neutrophils/100 WBC (Bld) 48.2 % . [facility] No Panel InformationOrdered By: Josefa Martinez on 07-25-2022 Estimated GFR () 44 mL/Min [facility] Comment on above: GFR estimated refere nce range: According to KDOQI guidelines, <60 ml/min/1.73m2 is sufficient to diagnose a patient with chronic kidney disease. Pharmacy Creatinine Clearance (Chem N/A [facility] Nucleated erythrocytes [Pres ence] in Blood by Automated countOrdered By: Josefa Martinez on 07-25-2022 Nucleated RBC Auto Ql (Bld) 0.1 /100{WBC} 0-0.5 [facility] Platelet mean volume Auto (B ld) [Entitic vol]Ordered By: Josefa Martinez on 07-25-2022 Platelet mean volume (Bld) [Entitic vol] 8.6 fL 6.3-10.7 [facility] Platelets Auto (Bld) [#/Vol] Ordered By: Josefa Martinez on 07-25-2022 Platelets (Bld) [#/Vol] 257 10*3/uL 150-450 [facility] RBC Auto (Bld) [#/Vol]Ordere d By: Josefa Martinez on 07-25-2022 RBC (Bld) [#/Vol] 4.60 10*6/uL 3.60-5.00 [facility] Serum or plasma anion gap de terminationOrdered By: Josefa Martinez on 07-25-2022 Anion gap [Moles/Vol] 15.3 mmol/L 6.0-15.0 Fi [facility] Serum or plasma calcium enma urement (mass/volume)Ordered By: Josefa Martinez on 07-25-2022 Calcium [Mass/Vol] 9.2 mg/dL 8.2-10.2 [facility] Serum or plasma chloride horace surement (moles/volume)Ordered By: Josefa Martinez on 07-25-2022 Chloride [Moles/Vol] 98 mmol/L 95-114 [facility] Serum or plasma glucose enma urement (mass/volume)Ordered By: Josefa Martinez on 07-25-2022 Glucose [Mass/Vol] 95 mg/dL 70-100 [facility] Comment on above: ADA recommended refe rence rangeRandom Glucose Reference Range is dependent on time and content of last meal. Glucose of more than 200 mg/dL in a nonstressed, ambulatory subject supports the diagnosis of Diabetes Mellitus. Serum or plasma potassium me asurement (moles/volume)Ordered By: Josefa Martinez on 07-25-2022 Potassium [Moles/Vol] 3.9 mmol/L 3.5-5.1 [facility] Serum or plasma sodium measu rement (moles/volume)Ordered By: Josefa Martinez on 07-25-2022 Sodium [Moles/Vol] 133 mmol/L 136-146 [facility] Serum or plasma total carbon dioxide measurement (moles/volume)Ordered By: Josefa Martinez on 07-25-2022 CO2 [Moles/Vol] 23.6 mmol/L 22.0-30.0 [facility] Serum or plasma urea nitroge n measurement (mass/volume)Ordered By: Josefa Martinez on 07-25-2022 Urea nitrogen [Mass/Vol] 29 mg/dL 04-20 [facility] WBC Auto (Bld) [#/Vol]Ordere d By: Josefa Martinez on 07-25-2022 WBC (Bld) [#/Vol] 7.9 10*3/uL 3.8-11.6 [facility] CBC with Auto Differentialon 06-11-2022 Absolute Eos # 0.11 [facility] Immature Granulocyte 0.00 [facility] Absolute Lymph # 4.52 High [facility] Absolute [place] # 0.95 [facility] Atyp[facility] Lymphocytes 2 % [facility] Atypical Lymphocytes Absolute 0.21 k/uL [facility] Basophils (Bld) [#/Vol] 0.11 10*3/uL [facility] Basophils/100 WBC (Bld) 1 % 0 - 2 % [facility] Eosinophils/100 WBC (Bld) 1 % 1 - 4 % [facility] Hematocrit (Bld) [Volume fraction] 35.9 % Low 36.3 - 47.1 % [facility] Hemoglobin (Bld) [Mass/Vol] 11.4 g/dL Low 11.9 - 15.1 g/dL [facility] Immature granulocytes/100 WBC (Bld) 0 % 0 [facility] Interpretation and review of laboratory results Abnormal [facility] Lymphocytes/100 WBC (Bld) 43 % 24 - 43 % [facility] MCH (RBC) [Entitic mass] 27.2 pg 25.2 - 33.5 pg [facility] MCHC (RBC) [Mass/Vol] 31.8 g/dL 28.4 - 34.8 g/dL [facility] MCV (RBC) [Entitic vol] 85.7 fL 82.6 - 102.9 fL [facility] Monocytes/100 WBC (Bld) 9 % 3 - 12 % [facility] Morphology William (Bld) [Interp] Platelet scan shows Normal Platelets [facility] NRBC Automated 0.0 0.0 per 100 WBC [facility] Platelet distribution width (Bld) [Ratio] 13.4 % 11.8 - 14.4 % [facility] Platelet mean volume (Bld) [Entitic vol] 10.3 fL 8.1 - 13.5 fL [facility] Platelets (Bld) [#/Vol] 335 10*3/uL [facility] RBC (Bld) [#/Vol] 4.19 10*6/uL 3.95 - 5.1 1 m/uL [facility] Segmented neutrophils/100 WBC (Bld) 44 % 36 - 65 % [facility] Segs Absolute 4.60 [facility] WBC (Bld) [#/Vol] 10.5 10*3/uL [facility] Creatinineon 06-11-2022 Creatinine [Mass/Vol] 1.82 mg/dL High 0.50 - 0.90 mg/dL [facility] GFR/1.73 sq M.predicted MDRD (S/P/Bld) [Vol rate/Area] 32 mL/min/{1.73_m2} Low - PINF [facility] Comment on above: Effective Apr 30, [...] Interpretation and review of laboratory results Abnormal [facility] Hepatic Function Panelon Albumin [Mass/Vol] 4.3 g/dL 3.5 - 5.2 g/dL [facility] Albumin/Globulin [Mass ratio] 1.5 {ratio} 1.0 - 2.5 [facility] ALP (Bld) [Catalytic activity/Vol] 91 U/L 35 - 104 U/L [facility] ALT [Catalytic activity/Vol] 9 U/L 5 - 33 U/L [facility] AST [Catalytic activity/Vol] 18 U/L NINF - 32 U/L [facility] Bilirubin [Mass/Vol] mg/dL Low 0.3 - 1 .2 mg/dL [facility] Bilirubin, Indirect Can not be calculated 0.00 - 1.00 mg/dL [facility] Bilirubin.indirect [Mass/Vol] mg/dL NINF - 0.31 mg/dL [facility] Interpretation and review of laboratory results Abnormal [facility] Protein [Mass/Vol] 7.2 g/dL 6.4 - 8.3 g/dL [facility] Sedimentation Rateon 06-11- 022 Sed Rate 15 [facility] CBC with Auto Differentialon 04-11-2022 Absolute Eos # 0.49 High [facility] Absolute Immature Granulocyte 0.04 [facility] Absolute Lymph # 2.85 [facility] Absolute [place] # 0.95 [facility] Basophils (Bld) [#/Vol] 0.07 10*3/uL [facility] Basophils/100 WBC (Bld) 1 % 0 - 2 % [facility] Eosinophils/100 WBC (Bld) 5 % High 1 - 4 % [facility] Hematocrit (Bld) [Volume fraction] 38.5 % 36.3 - 47.1 % [facility] Hemoglobin (Bld) [Mass/Vol] 12.4 g/dL 11.9 - 15.1 g/dL [facility] Immature granulocytes/100 WBC (Bld) 0 % 0 [facility] Interpretation and review of laboratory results Abnormal [facility] Lymphocytes/100 WBC (Bld) 26 % 24 - 43 % [facility] MCH (RBC) [Entitic mass] 27.6 pg 25.2 - 33.5 pg [facility] MCHC (RBC) [Mass/Vol] 32.2 g/dL 28.4 - 34.8 g/dL [facility] MCV (RBC) [Entitic vol] 85.7 fL 82.6 - 102.9 fL [facility] Monocytes/100 WBC (Bld) 9 % 3 - 12 % [facility] NRBC Automated 0.0 0.0 per 100 WBC [facility] Platelet distribution width (Bld) [Ratio] 12.3 % 11.8 - 14.4 % [facility] Platelet mean volume (Bld) [Entitic vol] 11.1 fL 8.1 - 13.5 fL [facility] Platelets (Bld) [#/Vol] 297 10*3/uL [facility] RBC (Bld) [#/Vol] 4.49 10*6/uL 3.95 - 5.1 1 m/uL [facility] Segmented neutrophils/100 WBC (Bld) 59 % 36 - 65 % [facility] Segs Absolute 6.41 [facility] WBC (Bld) [#/Vol] 10.8 10*3/uL [facility] Creatinineon 04-11-2022 Creatinine [Mass/Vol] 2.38 mg/dL High 0.5 - 0.9 mg/dL [facility] GFR 25 mL/min Low 60 - PI NF mL/min [facility] GFR Non- 21 mL/min Low 60 - PINF mL/min [facility] Interpretation and review of laboratory results Abnormal [facility] Hepatic Function Panelon Albumin [Mass/Vol] 4.5 g/dL 3.5 - 5.2 g/dL [facility] Albumin/Globulin [Mass ratio] 1.5 {ratio} 1 - 2.5 [facility] ALP (Bld) [Catalytic activity/Vol] 106 U/L High 35 - 104 U/L [facility] ALT [Catalytic activity/Vol] 16 U/L 5 - 33 U/L [facility] AST [Catalytic activity/Vol] 18 U/L NINF - 32 U/L [facility] Bilirubin [Mass/Vol] 0.2 mg/dL Low 0.3 - 1 .2 mg/dL [facility] Bilirubin, Indirect Can not be calculated 0 - 1 mg/dL [facility] Bilirubin.indirect [Mass/Vol] mg/dL NINF - 0.31 mg/dL [facility] Free PSA/Total PSA [Mass fraction] 7.5 g/dL 6.4 - 8.3 g/dL [facility] Interpretation and review of laboratory results Abnormal [facility] Laboratory - Chemistry and C hemistry - challengeon 04-11-2022 GFR/1.73 sq M.predicted MDRD (S/P/Bld) [Vol rate/Area] [facility] Comment on above: Average GFR for 50-5 9 years old: 93 mL/min/1.73sq m Chronic Kidney Disease: <60 mL/min/1.73sq m Kidney failure: <15 mL/min/1.73sq m eGFR calculated using average adult body mass. Additional eGFR calculator available at: http://www.[employer]/multiple_crcl_2012.htm Stage 1: Some kidney damage normal GFR Stage 2: Mild kidney damage GFR 60-89 Stage 3: Moderate kidney damage GFR 30-59 Stage 4: Severe kidney damage GFR 15-29 Stage 5: Severe kidney damage GFR <15 ESRD - chronic treatment by dialysis or transplant Sedimentation Rateon 022 Sed Rate 12 [facility] CBC with Auto Differentialon 02-15-2022 Absolute Eos # 0.17 [facility] Absolute Immature Granulocyte [facility] Absolute Lymph # 2.35 [facility] Absolute [place] # 0.82 [facility] Basophils (Bld) [#/Vol] 0.04 10*3/uL [facility] Basophils/100 WBC (Bld) 1 % 0 - 2 % [facility] Eosinophils/100 WBC (Bld) 3 % 1 - 4 % [facility] Hematocrit (Bld) [Volume fraction] 36.8 % 36.3 - 47.1 % [facility] Hemoglobin (Bld) [Mass/Vol] 12.1 g/dL 11.9 - 15.1 g/dL [facility] Immature granulocytes/100 WBC (Bld) 0 % 0 [facility] Interpretation and review of laboratory results Abnormal [facility] Lymphocytes/100 WBC (Bld) 43 % 24 - 43 % [facility] MCH (RBC) [Entitic mass] 28.5 pg 25.2 - 33.5 pg [facility] MCHC (RBC) [Mass/Vol] 32.9 g/dL 28.4 - 34.8 g/dL [facility] MCV (RBC) [Entitic vol] 86.8 fL 82.6 - 102.9 fL [facility] Monocytes/100 WBC (Bld) 15 % High 3 - 12 % [facility] NRBC Automated 0.0 0.0 per 100 WBC [facility] Platelet distribution width (Bld) [Ratio] 13.5 % 11.8 - 14.4 % [facility] Platelet mean volume (Bld) [Entitic vol] 10.0 fL 8.1 - 13.5 fL [facility] Platelets (Bld) [#/Vol] 304 10*3/uL [facility] RBC (Bld) [#/Vol] 4.24 10*6/uL 3.95 - 5.1 1 m/uL [facility] Segmented neutrophils/100 WBC (Bld) 38 % 36 - 65 % [facility] Segs Absolute 2.10 [facility] WBC (Bld) [#/Vol] 5.5 10*3/uL [facility] Creatinineon 02-15-2022 Creatinine [Mass/Vol] 1.2 mg/dL High 0.5 - 0.9 mg/dL [facility] GFR 56 mL/min Low 60 - PI NF mL/min [facility] GFR Non- 46 mL/min Low 60 - PINF mL/min [facility] Hepatic Function Panelon Albumin [Mass/Vol] 4.5 g/dL 3.5 - 5.2 g/dL [facility] Albumin/Globulin [Mass ratio] 1.5 {ratio} 1 - 2.5 [facility] ALP (Bld) [Catalytic activity/Vol] 96 U/L 35 - 104 U/L [facility] ALT [Catalytic activity/Vol] 15 U/L 5 - 33 U/L [facility] AST [Catalytic activity/Vol] 25 U/L NINF - 32 U/L [facility] Bilirubin [Mass/Vol] 0.19 mg/dL Low 0.3 - 1 .2 mg/dL [facility] Bilirubin, Indirect Can not be calculated 0 - 1 mg/dL [facility] Bilirubin.indirect [Mass/Vol] mg/dL NINF - 0.31 mg/dL [facility] Free PSA/Total PSA [Mass fraction] 7.6 g/dL 6.4 - 8.3 g/dL [facility] Laboratory - Chemistry and C hemistry - challengeon 02-15-2022 GFR/1.73 sq M.predicted MDRD (S/P/Bld) [Vol rate/Area] [facility] Comment on above: Average GFR for 50-5 9 years old: 93 mL/min/1.73sq m Chronic Kidney Disease: <60 mL/min/1.73sq m Kidney failure: <15 mL/min/1.73sq m eGFR calculated using average adult body mass. Additional eGFR calculator available at: http://www.ROXIM[employer]/multiple_crcl_2012.htm Stage 1: Some kidney damage normal GFR Stage 2: Mild kidney damage GFR 60-89 Stage 3: Moderate kidney damage GFR 30-59 Stage 4: Severe kidney damage GFR 15-29 Stage 5: Severe kidney damage GFR <15 ESRD - chronic treatment by dialysis or transplant No Panel Informationon 02-15 Interpretation and review of laboratory results Abnormal [facility] Stockr Sedimentation Rateon 022 Sed Rate 23 [facility] C3 Complementon 11-27-2021 Complement C3 132 mg/dL 90 - 180 mg/dL [facility] C4 Complementon 11-27-2021 Complement C4 34 mg/dL 10 - 40 mg/dL [facility] CHEST HIGH RESOLUTIONon 0 11-27-2021 Radiology [...] favoring cysts. Soft Tissues/Bones: No significant findings. [facility] RIS CONSOLIDATED Obinna Travis MD - 11/27/2021 [...] 3. Calcified atheromatous plaque and coronary calcification. [facility] Work Phone: CT CHEST HIGH RESOLUTIONOrde red By: Obinna Travis on 11-27-2021 [facility] Work Phone: No Panel Informationon 11-27 [facility] Urinalysis with Microscopico n 11-27-2021 - [facility] Bacteria, UA 2+ Abnormal None [facility] Bilirubin Urine Negative NEGATIVE [facility] Color, UA Yellow Yellow [facility] Epithelial Cells UA 0 TO 2 [facility] Glucose, Ur Negative NEGATIVE [facility] Interpretation and review of laboratory results Abnormal [facility] Ketones Ql (U) Negative NEGATIVE [facility] Leukocyte esterase Test strip Ql (U) SMALL Abnormal NEGATIVE [facility] Nitrite, Urine Negative NEGATIVE [facility] pH, UA 5.5 [facility] Protein, UA Negative NEGATIVE [facility] RBC, UA None [facility] Specific [place], UA 1.020 [facility] Turbidity UA Clear Clear [facility] Urine Hgb Negative NEGATIVE [facility] Urobilinogen, Urine Normal Normal [facility] WBC, UA 5 TO 10 [facility] CBC with Auto Differentialon 10-03-2021 Absolute Eos # 0.39 [facility] Absolute Immature Granulocyte 0.04 [facility] Absolute Lymph # 2.70 [facility] alth Absolute [place] # 0.91 [facility] Basophils (Bld) [#/Vol] 0.08 10*3/uL [facility] Basophils/100 WBC (Bld) 1 % 0 - 2 % [facility] Eosinophils/100 WBC (Bld) 4 % 1 - 4 % [facility] Hematocrit (Bld) [Volume fraction] 35.9 % Low 36.3 - 47.1 % [facility] Hemoglobin.gastrointest inal spec 1 Ql (Stl) 11.4 g/dL Low 11.9 - 15.1 g/dL [facility] Immature granulocytes/100 WBC (Bld) 0 % 0 [facility] Interpretation and review of laboratory results Abnormal [facility] Lymphocytes/100 WBC (Bld) 27 % 24 - 43 % [facility] MCH (RBC) [Entitic mass] 28.2 pg 25.2 - 33.5 pg [facility] MCHC (RBC) [Mass/Vol] 31.8 g/dL 28.4 - 34.8 g/dL [facility] MCV (RBC) [Entitic vol] 88.9 fL 82.6 - 102.9 fL [facility] Monocytes/100 WBC (Bld) 9 % 3 - 12 % M [facility] NRBC Automated 0.0 0.0 per 100 WBC [facility] Platelet distribution width (Bld) [Ratio] 14.7 % High 11.8 - 14.4 % [facility] Platelet mean volume (Bld) [Entitic vol] 10.5 fL 8.1 - 13.5 fL [facility] Platelets (Bld) [#/Vol] 327 10*3/uL [facility] RBC (Bld) [#/Vol] 4.04 10*6/uL 3.95 - 5.1 1 m/uL [facility] Segmented neutrophils/100 WBC (Bld) 59 % 36 - 65 % [facility] Segs Absolute 6.03 [facility] [#/Vol] 10.2 10*3/uL [facility] Creatinineon 10-03-2021 Creatinine [Mass/Vol] 1.24 mg/dL High 0.50 - 0.90 mg/dL [facility] GFR 54 mL/min Low >60 [facility] GFR Non- 45 mL/min Low >60 [facility] Interpretation and review of laboratory results Abnormal [facility] Hepatic Function Panelon Albumin [Mass/Vol] 4.2 g/dL 3.5 - 5.2 g/dL [facility] Albumin/Globulin [Mass ratio] 1.4 {ratio} [facility] ALP (Bld) [Catalytic activity/Vol] 113 U/L High 35 - 104 U/L [facility] ALT [Catalytic activity/Vol] 11 U/L 5 - 33 U/L [facility] AST [Catalytic activity/Vol] 22 U/L <32 [facility] Bilirubin [Mass/Vol] mg/dL Low 0.3 - 1 .2 mg/dL [facility] Bilirubin, Indirect Can not be calculated 0.00 - 1.00 mg/dL [facility] Bilirubin.indirect [Mass/Vol] mg/dL <0.31 mg/dL [facility] Free PSA/Total PSA [Mass fraction] 7.1 g/dL 6.4 - 8.3 g/dL [facility] [employer] Interpretation and review of laboratory results Abnormal [facility] Laboratory - Chemistry and C hemistry - challengeon 10-03-2021 GFR/1.73 sq M.predicted MDRD (S/P/Bld) [Vol rate/Area] [facility] Comment on above: Average GFR for 50-5 9 years old: 93 mL/min/1.73sq m Chronic Kidney Disease: <60 mL/min/1.73sq m Kidney failure: <15 mL/min/1.73sq m eGFR calculated using average adult body mass. Additional eGFR calculator available at: http://www.[employer]/multiple_crcl_2012.htm Stage 1: Some kidney damage normal GFR Stage 2: Mild kidney damage GFR 60-89 Stage 3: Moderate kidney damage GFR 30-59 Stage 4: Severe kidney damage GFR 15-29 Stage 5: Severe kidney damage GFR <15 ESRD - chronic treatment by dialysis or transplant Sedimentation Rateon 022 Sed Rate 18 mm 0 - 30 mm [facility] [employer] CBC Auto DifferentialOrdered By: Vinicius Bullock on 05-30-2021 Absolute Eos # 0.17 [employer] [facility] Work Phone: Absolute Immature Granulocyte 0.05 [facility] Work Phone: Absolute Lymph # 2.36 [facility] Work Phone: Absolute [place] # 0.75 [employer] [facility] [employer] Work Phone: Basophils (Bld) [#/Vol] 0.06 10*3/uL [facility] Work Phone: Basophils/100 WBC (Bld) 1 % 0 - 2 % M [facility] [employer] Work Phone: Differential Type NOT REPORTED [facility] Work Phone: Eosinophils/100 WBC (Bld) 2 % 1 - 4 % [facility] Work Phone: Hematocrit (Bld) [Volume fraction] 37.1 % 36.3 - 47.1 % [facility] Work Phone: Hemoglobin.gastrointest inal spec 1 Ql (Stl) 12.0 g/dL 11.9 - 15.1 g/dL [employer] Phone: Immature granulocytes/100 WBC (Bld) 1 % High 0 [employer] Phone: Interpretation and review of laboratory results Abnormal [employer] Phone: Lymphocytes/100 WBC (Bld) 22 % Low 24 - 43 % [employer] Phone: MCH (RBC) [Entitic mass] 27.8 pg 25.2 - 33.5 pg [employer] Phone: MCHC (RBC) [Mass/Vol] 32.3 g/dL 28.4 - 34.8 g/dL [employer] Phone: MCV (RBC) [Entitic vol] 86.1 fL 82.6 - 102.9 fL [employer] Phone: Monocytes/100 WBC (Bld) 7 % 3 - 12 % M [employer] Phone: NRBC Automated 0.0 0.0 per 100 WBC [employer] Phone: Platelet distribution width (Bld) [Ratio] 13.9 % 11.8 - 14.4 % [employer] Phone: Platelet Estimate NOT REPORTED [employer] Phone: Platelet mean volume (Bld) [Entitic vol] 10.3 fL 8.1 - 13.5 fL [employer] Phone: Platelets (Bld) [#/Vol] 316 10*3/uL [employer] Phone: RBC (Bld) [#/Vol] 4.31 10*6/uL 3.95 - 5.1 1 m/uL [employer] Phone: RBC (Bld) [#/Vol] NOT REPORTED [employer] Phone: Segmented neutrophils/100 WBC (Bld) 67 % High 36 - 65 % [employer] Phone: Segs Absolute 7.58 [employer] Work Phone: WBC (Bld) [#/Vol] 11.0 10*3/uL [employer] Phone: WBC (Bld) [#/Vol] NOT REPORTED [employer] Phone: [employer] Phone: Creatinine, SerumOrdered By: Vinicius Bullock on 05-30-2021 Creatinine [Mass/Vol] 1.22 mg/dL High 0.50 - 0.90 mg/dL [employer] Phone: GFR 55 mL/min Low >60 [employer] Phone: GFR Non- 45 mL/min Low >60 [employer] Phone: Interpretation and review of laboratory results Abnormal [employer] Phone: [employer] Phone: Hepatic Function PanelOrdere d By: Vinicius Bullock on 05-30-2021 Albumin [Mass/Vol] 4.4 g/dL 3.5 - 5.2 g/dL [employer] Phone: Albumin/Globulin [Mass ratio] 1.4 {ratio} [employer] Phone: ALP (Bld) [Catalytic activity/Vol] 98 U/L 35 - 104 U/L [employer] Phone: ALT [Catalytic activity/Vol] 15 U/L 5 - 33 U/L [employer] Phone: AST [Catalytic activity/Vol] 24 U/L <32 [employer] Phone: Bilirubin [Mass/Vol] mg/dL Low 0.3 - 1 .2 mg/dL [employer] Phone: Bilirubin, Indirect CANNOT BE CALCULATED 0.00 - 1.00 mg/dL [employer] Phone: Bilirubin.indirect [Mass/Vol] mg/dL <0.31 mg/dL [employer] Phone: Free PSA/Total PSA [Mass fraction] 7.5 g/dL 6.4 - 8.3 g/dL [employer] Phone: Globulin NOT REPORTED 1.5 - 3.8 g/dL [employer] Phone: Interpretation and review of laboratory results Abnormal [employer] Phone: [employer] Phone: Laboratory - Chemistry and C hemistry - challengeOrdered By: Vinicius Bullock on 05-30-2021 GFR/1.73 sq M.predicted MDRD (S/P/Bld) [Vol rate/Area] [employer] Phone: Comment on above: Average GFR for 50-5 9 years old: 93 mL/min/1.73sq m Chronic Kidney Disease: <60 mL/min/1.73sq m Kidney failure: <15 mL/min/1.73sq m eGFR calculated using average adult body mass. Additional eGFR calculator available at: http://www.[employer]/multiple_crcl_2012.htm Stage 1: Some kidney damage normal GFR Stage 2: Mild kidney damage GFR 60-89 Stage 3: Moderate kidney damage GFR 30-59 Stage 4: Severe kidney damage GFR 15-29 Stage 5: Severe kidney damage GFR <15 ESRD - chronic treatment by dialysis or transplant Sedimentation RateOrdered By : Vinicius Bullock on 05-30-2021 Interpretation and review of laboratory results Abnormal [employer] Phone: Sed Rate 25 mm High 0 - 20 mm [employer] Phone: [employer] Phone: CBC Auto DifferentialOrdered By: Vinicius Bullock on 04-04-2021 Absolute Eos # 0.09 [employer] [facility] Work Phone: Absolute Immature Granulocyte 0.04 [employer] Work Phone: Absolute Lymph # 2.65 [employer] [facility] Work Phone: Absolute [place] # 0.80 [employer] Hea lt Work Phone: Basophils (Bld) [#/Vol] 0.08 10*3/uL [facility] Work Phone: Basophils/100 WBC (Bld) 1 % 0 - 2 % M [employer] Work Phone: Differential Type NOT REPORTED [facility] Phone: Eosinophils/100 WBC (Bld) 1 % 1 - 4 % [employer] Phone: Hematocrit (Bld) [Volume fraction] 40.0 % 36.3 - 47.1 % [employer] Phone: Hemoglobin.gastrointest inal spec 1 Ql (Stl) 12.9 g/dL 11.9 - 15.1 g/dL [employer] Phone: Immature granulocytes/100 WBC (Bld) 0 % 0 [employer] Phone: Lymphocytes/100 WBC (Bld) 25 % 24 - 43 % [employer] Phone: MCH (RBC) [Entitic mass] 27.4 pg 25.2 - 33.5 pg [facility] Work Phone: MCHC (RBC) [Mass/Vol] 32.3 g/dL 28.4 - 34.8 g/dL [employer] Phone: MCV (RBC) [Entitic vol] 84.9 fL 82.6 - 102.9 fL [employer] Phone: Monocytes/100 WBC (Bld) 8 % 3 - 12 % M [employer] Work Phone: NRBC Automated 0.0 0.0 per 100 WBC [facility] Phone: Platelet distribution width (Bld) [Ratio] 14.2 % 11.8 - 14.4 % [employer] Phone: Platelet Estimate NOT REPORTED [employer] Phone: Platelet mean volume (Bld) [Entitic vol] 10.1 fL 8.1 - 13.5 fL [employer] Phone: Platelets (Bld) [#/Vol] 314 10*3/uL [employer] Phone: RBC (Bld) [#/Vol] 4.71 10*6/uL 3.95 - 5.1 1 m/uL [facility] Phone: RBC (Bld) [#/Vol] NOT REPORTED [employer] Phone: Segmented neutrophils/100 WBC (Bld) 65 % 36 - 65 % [employer] Phone: Segs Absolute 6.90 [employer] Work Phone: WBC (Bld) [#/Vol] 10.6 10*3/uL [facility] [facility] Phone: WBC (Bld) [#/Vol] NOT REPORTED [employer] Phone: [employer] Phone: Creatinine, SerumOrdered By: Vinicius Bullock on 04-04-2021 Creatinine [Mass/Vol] 1.47 mg/dL High 0.50 - 0.90 mg/dL [facility] Phone: GFR 45 mL/min Low >60 [employer] Phone: GFR Non- 37 mL/min Low >60 [facility] Phone: Interpretation and review of laboratory results Abnormal [facility] Phone: [employer] Phone: Hepatic Function PanelOrdere d By: Vinicius Bullock on 04-04-2021 Albumin [Mass/Vol] 4.2 g/dL 3.5 - 5.2 g/dL [facility] Phone: Albumin/Globulin [Mass ratio] 1.4 {ratio} [employer] Phone: ALP (Bld) [Catalytic activity/Vol] 95 U/L 35 - 104 U/L [employer] [facility] Phone: ALT [Catalytic activity/Vol] 14 U/L 5 - 33 U/L [employer] Phone: AST [Catalytic activity/Vol] 24 U/L <32 [employer] Phone: Bilirubin [Mass/Vol] mg/dL Low 0.3 - 1 .2 mg/dL [employer] Phone: Bilirubin, Indirect CANNOT BE CALCULATED 0.00 - 1.00 mg/dL [employer] Phone: Bilirubin.indirect [Mass/Vol] mg/dL <0.31 mg/dL [employer] Phone: Free PSA/Total PSA [Mass fraction] 7.2 g/dL 6.4 - 8.3 g/dL [employer] Phone: Globulin NOT REPORTED 1.5 - 3.8 g/dL [facility] [facility] Phone: Interpretation and review of laboratory results Abnormal [facility] Phone: [facility] Phone: Laboratory - Chemistry and C hemistry - challengeOrdered By: Vinicius Bullock on 04-04-2021 GFR/1.73 sq M.predicted MDRD (S/P/Bld) [Vol rate/Area] [facility] [facility] Phone: Comment on above: Average GFR for 50-5 9 years old: 93 mL/min/1.73sq m Chronic Kidney Disease: <60 mL/min/1.73sq m Kidney failure: <15 mL/min/1.73sq m eGFR calculated using average adult body mass. Additional eGFR calculator available at: http://www.Servoy.[employer]/multiple_crcl_2012.htm Stage 1: Some kidney damage normal GFR Stage 2: Mild kidney damage GFR 60-89 Stage 3: Moderate kidney damage GFR 30-59 Stage 4: Severe kidney damage GFR 15-29 Stage 5: Severe kidney damage GFR <15 ESRD - chronic treatment by dialysis or transplant Sedimentation RateOrdered By : Vinicius Bullock on 04-04-2021 Sed Rate 13 mm 0 - 20 mm [facility] Phone: [employer] [facility] Phone: XR ABDOMEN (KUB) (SINGLE AP VIEW)Ordered By: Frank Joe on 02-21-2021 Unremarkable abdominal radiographs without acute abnormality. [facility] Phone: EXAMINATION: ONE SUPINE XRAY VIEW(S) OF THE ABDOMEN 02/21/2021 7:33 am COMPARISON: Abdominal radiographs performed 11/10/2019. HISTORY: ORDERING SYSTEM PROVIDED HISTORY: Urinary urgency FINDINGS: There is a nonobstructive bowel gas pattern. There is no intraperitoneal free air. There are no suspicious calcifications. Stable phleboliths are seen in the pelvis. There is no acute osseous abnormality. The surrounding soft tissues are unremarkable. [facility] Phone: [place], [facility] Incoming Radiant Results From [employer] - 02/21/2021 8:40 AM EDT EXAMINATION: ONE [...] IMPRESSION: Unremarkable abdominal radiographs without acute abnormality. [facility] Phone: [employer] Phone: CBC Auto DifferentialOrdered By: Vinicius Bullock on 02-07-2021 Absolute Eos # 0.41 [employer] [facility] Work Phone: Absolute Immature Granulocyte 0.05 [facility] Work Phone: Absolute Lymph # 2.39 [employer] [facility] Work Phone: Absolute [place] # 0.91 [employer] [facility] Work Phone: Basophils (Bld) [#/Vol] 0.08 10*3/uL [facility] Work Phone: Basophils/100 WBC (Bld) 1 % 0 - 2 % M [facility] Work Phone: Differential Type NOT REPORTED [facility]: Eosinophils/100 WBC (Bld) 4 % 1 - 4 % [employer] Phone: Hematocrit (Bld) [Volume fraction] 36.4 % 36.3 - 47.1 % [facility] Work Phone: Hemoglobin.gastrointest inal spec 1 Ql (Stl) 11.2 g/dL Low 11.9 - 15.1 g/dL [employer] Phone: Immature granulocytes/100 WBC (Bld) 1 % High 0 [employer] Phone: Interpretation and review of laboratory results Abnormal [facility] [facility] Phone: Lymphocytes/100 WBC (Bld) 26 % 24 - 43 % [employer] [facility] Phone: MCH (RBC) [Entitic mass] 27.0 pg 25.2 - 33.5 pg [employer] Phone: MCHC (RBC) [Mass/Vol] 30.8 g/dL 28.4 - 34.8 g/dL [employer] [facility] Phone: MCV (RBC) [Entitic vol] 87.7 fL 82.6 - 102.9 fL [employer] [facility] Phone: Monocytes/100 WBC (Bld) 10 % 3 - 12 % M [employer] 24 Phone: NRBC Automated 0.0 0.0 per 100 WBC [employer] Phone: Platelet distribution width (Bld) [Ratio] 14.5 % High 11.8 - 14.4 % [employer] [facility] Phone: Platelet Estimate NOT REPORTED [employer] Phone: Platelet mean volume (Bld) [Entitic vol] 10.0 fL 8.1 - 13.5 fL [employer] [facility] Phone: Platelets (Bld) [#/Vol] 390 10*3/uL [employer] Phone: RBC (Bld) [#/Vol] 4.15 10*6/uL 3.95 - 5.1 1 m/uL [employer] Phone: RBC (Bld) [#/Vol] NOT REPORTED [facility] [facility] Phone: Segmented neutrophils/100 WBC (Bld) 58 % 36 - 65 % [employer] Phone: Segs Absolute 5.47 [employer] Work Phone: WBC (Bld) [#/Vol] 9.3 10*3/uL [facility] Phone: WBC (Bld) [#/Vol] NOT REPORTED [facility] [facility] Phone: [employer] Phone: Creatinine, SerumOrdered By: Vinicius Bullock on 02-07-2021 Creatinine [Mass/Vol] 1.25 mg/dL High 0.50 - 0.90 mg/dL [employer] [facility] Phone: GFR 54 mL/min Low >60 [employer] Phone: GFR Non- 44 mL/min Low >60 [facility] Phone: Interpretation and review of laboratory results Abnormal [facility] [facility] Phone: [employer] Phone: Hepatic Function PanelOrdere d By: Vinicius Bullock on 02-07-2021 Albumin [Mass/Vol] 4 g/dL 3.5 - 5.2 g/dL [facility] [facility] Phone: Albumin/Globulin [Mass ratio] 1.1 {ratio} [employer] Phone: ALP (Bld) [Catalytic activity/Vol] 95 U/L 35 - 104 U/L [employer] Phone: ALT [Catalytic activity/Vol] 13 U/L 5 - 33 U/L [employer] Phone: AST [Catalytic activity/Vol] 22 U/L <32 [employer] Phone: Bilirubin [Mass/Vol] mg/dL Low 0.3 - 1 .2 mg/dL [employer] Phone: Bilirubin, Indirect CANNOT BE CALCULATED 0.00 - 1.00 mg/dL [employer] Phone: Bilirubin.indirect [Mass/Vol] mg/dL <0.31 mg/dL [employer] Phone: Free PSA/Total PSA [Mass fraction] 7.5 g/dL 6.4 - 8.3 g/dL [employer] Phone: Globulin NOT REPORTED 1.5 - 3.8 g/dL [employer] Phone: Interpretation and review of laboratory results Abnormal [employer] Phone: [employer] Phone: Laboratory - Chemistry and C hemistry - challengeOrdered By: Vinicius Bullock on 02-07-2021 GFR/1.73 sq M.predicted MDRD (S/P/Bld) [Vol rate/Area] [employer] Phone: Comment on above: Average GFR for 50-5 9 years old: 93 mL/min/1.73sq m Chronic Kidney Disease: <60 mL/min/1.73sq m Kidney failure: <15 mL/min/1.73sq m eGFR calculated using average adult body mass. Additional eGFR calculator available at: http://www.ROXIMITY/multiple_crcl_2012.htm Stage 1: Some kidney damage normal GFR Stage 2: Mild kidney damage GFR 60-89 Stage 3: Moderate kidney damage GFR 30-59 Stage 4: Severe kidney damage GFR 15-29 Stage 5: Severe kidney damage GFR <15 ESRD - chronic treatment by dialysis or transplant Sedimentation RateOrdered By : Vinicius Bullock on 02-07-2021 Interpretation and review of laboratory results Abnormal [employer] Phone: Sed Rate 62 mm High 0 - 20 mm [employer] Phone: [facility] Work Phone: CBC Auto DifferentialOrdered By: Vinicius Bullock on 12-13-2020 Absolute Eos # 0.30 [employer] [facility] Work Phone: Absolute Immature Granulocyte 0.08 [facility] Work Phone: Absolute Lymph # 2.93 [employer] [facility] Work Phone: Absolute [place] # 1.04 [employer] Shared [facility] Work Phone: Basophils (Bld) [#/Vol] 0.08 10*3/uL [facility] Work Phone: Basophils/100 WBC (Bld) 1 % 0 - 2 % [facility] Phone: Differential Type NOT REPORTED [employer] Phone: Eosinophils/100 WBC (Bld) 2 % 1 - 4 % [facility] Phone: Hematocrit (Bld) [Volume fraction] 37.6 % 36.3 - 47.1 % [facility] Work Phone: Hemoglobin.gastrointest inal spec 1 Ql (Stl) 12.0 g/dL 11.9 - 15.1 g/dL [employer] Phone: Immature granulocytes/100 WBC (Bld) 1 % High 0 [employer] Phone: Interpretation and review of laboratory results Abnormal [employer] Phone: Lymphocytes/100 WBC (Bld) 21 % Low 24 - 43 % [employer] Phone: MCH (RBC) [Entitic mass] 27.8 pg 25.2 - 33.5 pg [employer] Phone: MCHC (RBC) [Mass/Vol] 31.9 g/dL 28.4 - 34.8 g/dL [employer] Phone: MCV (RBC) [Entitic vol] 87.0 fL 82.6 - 102.9 fL [employer] Phone: Monocytes/100 WBC (Bld) 7 % 3 - 12 % M [employer] 24 Phone: NRBC Automated 0.0 0.0 per 100 WBC [employer] Phone: Platelet distribution width (Bld) [Ratio] 13.1 % 11.8 - 14.4 % [employer] Phone: Platelet Estimate NOT REPORTED [employer] Phone: Platelet mean volume (Bld) [Entitic vol] 9.7 fL 8.1 - 13.5 fL [employer] Phone: Platelets (Bld) [#/Vol] 345 10*3/uL [employer] Phone: RBC (Bld) [#/Vol] 4.32 10*6/uL 3.95 - 5.1 1 m/uL [employer] Phone: RBC (Bld) [#/Vol] NOT REPORTED [employer] Phone: Segmented neutrophils/100 WBC (Bld) 68 % High 36 - 65 % [facility] Work Phone: Segs Absolute 9.87 [employer] Work Phone: WBC (Bld) [#/Vol] 14.3 10*3/uL High [employer] Phone: WBC (Bld) [#/Vol] NOT REPORTED [employer] Phone: [facility] Work Phone: Creatinine, SerumOrdered By: Vinicius Bullock on 12-13-2020 Creatinine [Mass/Vol] 1.48 mg/dL High 0.50 - 0.90 mg/dL [employer] Phone: GFR 44 mL/min Low >60 [employer] Phone: GFR Non- 36 mL/min Low >60 [facility] Work Phone: Interpretation and review of laboratory results Abnormal [employer] Phone: [employer] Phone: Hepatic Function PanelOrdere d By: Vinicius Bullock on 12-13-2020 Albumin [Mass/Vol] 4.2 g/dL 3.5 - 5.2 g/dL [employer] Phone: Albumin/Globulin [Mass ratio] 1.1 {ratio} [employer] Phone: ALP (Bld) [Catalytic activity/Vol] 86 U/L 35 - 104 U/L [employer] Phone: ALT [Catalytic activity/Vol] 12 U/L 5 - 33 U/L [employer] Phone: AST [Catalytic activity/Vol] 21 U/L <32 [employer] Phone: Bilirubin [Mass/Vol] mg/dL Low 0.3 - 1 .2 mg/dL [employer] Phone: Bilirubin, Indirect CANNOT BE CALCULATED 0.00 - 1.00 mg/dL [employer] Phone: Bilirubin.indirect [Mass/Vol] mg/dL <0.31 mg/dL [employer] Phone: Free PSA/Total PSA [Mass fraction] 7.9 g/dL 6.4 - 8.3 g/dL [employer] Phone: Globulin NOT REPORTED 1.5 - 3.8 g/dL [employer] Phone: Interpretation and review of laboratory results Abnormal [employer] Phone: [employer] Phone: Laboratory - Chemistry and C hemistry - challengeOrdered By: Vinicius Bullock on 12-13-2020 GFR/1.73 sq M.predicted MDRD (S/P/Bld) [Vol rate/Area] [employer] Phone: Comment on above: Average GFR for 50-5 9 years old: 93 mL/min/1.73sq m Chronic Kidney Disease: <60 mL/min/1.73sq m Kidney failure: <15 mL/min/1.73sq m eGFR calculated using average adult body mass. Additional eGFR calculator available at: http://www.Servoy.[employer]/multiple_crcl_2012.htm Stage 1: Some kidney damage normal GFR Stage 2: Mild kidney damage GFR 60-89 Stage 3: Moderate kidney damage GFR 30-59 Stage 4: Severe kidney damage GFR 15-29 Stage 5: Severe kidney damage GFR <15 ESRD - chronic treatment by dialysis or transplant Sedimentation RateOrdered By : Vinicius Bullock on 12-13-2020 Interpretation and review of laboratory results Abnormal [employer] Phone: Sed Rate 54 mm High 0 - 20 mm [employer] Phone: [employer] Phone: CBC Auto Differentialon 09-26 Basophils (Bld) [#/Vol] 0.06 10*3/uL [employer] Phone: Basophils/100 WBC (Bld) 1 % 0 - 2 % M [employer] 24 Phone: Differential Type NOT REPORTED [employer] Phone: Eosinophils (Bld) [#/Vol] 0.33 10*3/uL [employer] Phone: Eosinophils/100 WBC (Bld) 4 % 1 - 4 % [employer] Phone: Erythrocyte distribution width (RBC) [Ratio] 13.3 % 11.8 - 14.4 % [employer] Phone: Hematocrit (Bld) [Volume fraction] 39.0 % 36.3 - 47.1 % [employer] Phone: Hemoglobin (Bld) [Mass/Vol] 12.3 g/dL 11.9 - 15.1 g/dL [employer] Phone: Immature granulocytes (Bld) [#/Vol] 0 % 0 [employer] Phone: Immature granulocytes (Bld) [#/Vol] 0.04 10*3/uL [employer] Phone: Lymphocytes (Bld) [#/Vol] 2.45 10*3/uL [employer] Phone: Lymphocytes/100 WBC (Bld) 27 % 24 - 43 % [employer] Phone: MCH (RBC) [Entitic mass] 27.8 pg 25.2 - 33.5 pg [employer] Phone: MCHC (RBC) [Mass/Vol] 31.5 g/dL 28.4 - 34.8 g/dL [employer] Phone: MCV (RBC) [Entitic vol] 88.2 fL 82.6 - 102.9 fL [employer] Phone: Monocytes (Bld) [#/Vol] 0.79 10*3/uL [employer] Phone: Monocytes/100 WBC (Bld) 9 % 3 - 12 % [facility] Phone: Platelet mean volume (Bld) [Entitic vol] 10.4 fL 8.1 - 13.5 fL [employer] Phone: Platelets (Bld) [#/Vol] 284 10*3/uL [facility] Work Phone: Platelets (Bld) [#/Vol] NOT REPORTED [facility] Phone: RBC (Bld) [#/Vol] 4.42 10*6/uL 3.95 - 5.1 1 m/uL [employer] Phone: RBC morphology finding Nom (Bld) NOT REPORTED [facility] Phone: Segmented neutrophils/100 WBC (Bld) 59 % 36 - 65 % [facility] Phone: Segs Absolute 5.38 [employer] Just Shared [facility] [employer] Work Phone: WBC (Bld) [#/Vol] 9.1 10*3/uL [facility] Phone: WBC (Bld) [#/Vol] 0.0 10*3/uL 0.0 per 10 0 WBC [employer] Phone: WBC Morphology NOT REPORTED [employer] [facility] Work Phone: Creatinine, Serumon 10-14-19 Creatinine [Mass/Vol] 1.45 mg/dL High 0.50 - 0.90 mg/dL [employer] Phone: GFR 45 mL/min Low >60 [employer] Phone: GFR Non- 37 mL/min Low >60 [facility] Work Phone: Interpretation and review of laboratory results Abnormal [employer] Phone: Hepatic Function Panelon Albumin [Mass/Vol] 4.5 g/dL 3.5 - 5.2 g/dL [employer] Phone: Albumin/Globulin [Mass ratio] 1.3 {ratio} [employer] Phone: ALP [Catalytic activity/Vol] 93 U/L 35 - 104 U/L [employer] Phone: ALT [Catalytic activity/Vol] 12 U/L 5 - 33 U/L [employer] Phone: AST [Catalytic activity/Vol] 21 U/L <32 [employer] Phone: Bilirubin Ql (U) <0.10 Low 0.3 - 1.2 mg/dL [employer] Phone: Bilirubin, Indirect CANNOT BE CALCULATED 0.00 - 1.00 mg/dL [employer] Phone: Bilirubin.direct [Mass/Vol] mg/dL <0.31 mg/dL [employer] Phone: Globulin (S) [Mass/Vol] NOT REPORTED 1.5 - 3.8 g/dL [employer] Phone: Interpretation and review of laboratory results Abnormal [employer] Phone: Protein [Mass/Vol] 7.9 g/dL 6.4 - 8.3 g/dL [employer] Phone: Metabolic Panelon 10-13-2020 GFR/1.73 sq M predicted among non-blacks MDRD (S/P/Bld) [Vol rate/Area] [employer] Phone: Comment on above: Stage 1: Some [...] body mass. Additional eGFR calculator available at: http://www.ROXIMITY/multiple_crcl_2012.htm Sedimentation Rateon 021 Interpretation and review of laboratory results Abnormal [facility] Work Phone: Sed Rate 25 mm High 0 - 20 mm [facility] Work Phone: XR ABDOMEN (KUB) (SINGLE AP VIEW)on 11-10-2019 No definite renal stones are seen. There is a 2-3 mm calcification in the pelvis on the left felt more likely to reflect a phlebolith although a distal left ureteral stone is not entirely excluded. Consider CT as clinically indicated. [place] EXAMINATION: ONE SUPINE XRAY VIEW(S) OF [...] intraperitoneal free air. No acute bony abnormalities. [place], [place], [facility] Incoming Radiant Results From [employer] - 11/10/2019 8:02 AM EDT EXAMINATION: ONE [...] entirely excluded. Consider CT as clinically indicated. [facility] [place], [place] FINGER LEFT MIN 2 VWSon 03-29 FINGER LEFT MIN 2 VWS [facility] [id number] [place] [address] Patient Name: SYLVIA GARAY : 1965Sex: FAge: Race: OtherMRN: [id number]. Location: OUTPPatient Status: OVisit #: [id number] Date: 04/15/2017 7:10:00 AMCompleted Date: 04/15/2017 08:31 AMRequesting Provider: OREN LOPES Attending Provider: OREN LOPES Report Copy To: Signs & Symptoms: LT THUMB IP FUSIONHistory: LT THUMB IP FUSIONComments: LT THUMB IP FUSIONExam: FINGER LEFT MIN 2 VWSAccession #: [id number] FIN SEAN LEFT MIN 2 VWS 04/15/2017 8:31 AM EDT SIGNS AND SYMPTOMS: LT THUMB IP FUSION lt thumb IP fusion fluoro time 22 secs TECHNIQUE: Intraprocedural fluoroscopy without radiologist supervision or interpretation. Electronically signed by:Mervin Rios M.D.. Transcribed by: [email or web address], User Resident: Electronically Signed by: MERVIN RIOS @ 04/15/2017 10:35 AM Normal [facility] Comment on above: Order Comment: LT TH UMB IP FUSION Operative Reporton 7 Operative Report MR#: [id number] [facility] Pt. Name: Sylvia Garay Room #: 0C Discharge Date: Birthdate: 1965 OPERATIVE REPORTDATE OF SURGERY: 04/15/2017SURGEON: Oren Lopes M.D.PREOPERATIVE DIAGNOSIS: Degenerative osteoarthritis, left thumb IP joint.POSTOPERATIVE DIAGNOSIS: Degenerative osteoarthritis, left thumb IPjoint.PROCEDURE: IP joint fusion, left thumb.EARLY CHILDHOOD LEAD TEACHER: Cain Jean M.D.ANESTHESIA: Regional with an axillary block.INDICATION FOR SURGERY: Sylvia is a 51-year-old female who presented [facility] with complaints of pain and worsening deformityin her left thumb. Clinically, she has about 50-81-wbsijo ulnar deviationdeformity at the IP joint of [...] position. An axillary block had been administered [facility] in the holding area. A [...] prepared andthe thumb was straight with good altb-vc-hpmu contact. We took a guidewirefrom the Arth[employer] [...] extensor mechanism was reapproximated with a couple nmrtfosu-zn-peftn sutures of 4-0 Vicryl. The skin with a buried 4-0 Vicryland then 5-0 Novafil. Sterile dressing of Xeroform gauze, 4x4, fluffs,Araceli, and an William bandage were applied. The tourniquet was released. Allsponge and needle counts were correct at time of closure.Electronicall y Signed by:Oren Lopes M.D. 04/16/2017 12:36 P Jasmin Lopes M.D.Date Dict: 04/15/2017/10:23 Lovely/Oren Lopes M.D.Date Trans: 04/15/2017 10:48 A/VasileN_JN:[id number]: Josefa Martinez M.D. [facility] [address] [place] [id number] Normal [facility] POC GLUCOSE LABon 04-15-2017 Glucose mass conc 100 mg/dL Normal 70-100 [facility] Comment on above: Performed By: #### [id number] ####[facility] [place] [address], [facility] FINGER LEFT MIN 2 VWSon 01-26 FINGER LEFT MIN 2 VWS [facility] [address] [place] [address] Patient Name: SYLVIA GARAY : 1965Sex: FAge: Race: OtherMRN: [id number]. Location: 84Patient Status: OVisit #: [id number] Date: 02/13/2017 9:25:00 AMCompleted Date: 02/13/2017 09:28 AMRequesting Provider: BOB BROWN Attending Provider: BOB BROWN Report Copy To: Signs & Symptoms: S63.125A Dislocation of unsp interphaln joint of left thumb, init [id number]: AthenaComments: , , L thumb , , , Ordering Provider - BOB BROWN , Rendering Provider - BOB BROWN , Exam: FINGER LEFT MIN 2 VWSAccession #: [id number] FIN SEAN LEFT MIN 2 VWS 02/13/2017 [...] change. Electronically signed by:Mervin Epstein. Transcribed by: [email or web address], User Resident: Electronically Signed by: MERVIN EPSTEIN @ 02/13/2017 10:45 AM Normal [facility] Comment on above: Order Comment: , , L thumb , , , Ordering Provider - CHRISTOPHER BROWN , Rendering Provider - CHRISTOPHER BROWN , Vital Signs Date Time Vital Sign Value Performing Clinician Facility 08-31-2024 08:53-0500 Body height 154.9 cm Josefa Martinez MD Work Phone: [facility] 08-31-2024 08:53-0500 Body mass index (BMI) [Ratio] 31.93 kg/m2 Josefa Martinez MD Work Phone: [facility] 08-31-2024 08:53-0500 Body weight 76.66 kg Josefa Martinez MD Work Phone: [facility] 08-31-2024 08:53-0500 Diastolic blood pressure 82 mm[Hg] Josefa Martinez MD Work Phone: [facility] 08-31-2024 08:53-0500 Heart rate 64 /min Josefa Martinez MD Work Phone: [facility] 08-31-2024 08:53-0500 SaO2% (BldA) [Mass fraction] 98 % Josefa Martinez MD Work Phone: [facility] 08-31-2024 08:53-0500 Systolic blood pressure 118 mm[Hg] Josefa Martinez MD Work Phone: [facility] 12-16-2023 09:22-0400 Body height 152.4 cm [facility] 12-16-2023 09:22-0400 Body mass index (BMI) [Ratio] 32.4 kg/m2 [facility] 12-16-2023 09:22-0400 Body temperature 97.2 [degF] [facility] 12-16-2023 09:22-0400 Body weight 75.29 kg [facility] 12-16-2023 09:22-0400 Diastolic blood pressure 81 mm[Hg] [facility] 12-16-2023 09:22-0400 Heart rate 73 /min [facility] 12-16-2023 09:22-0400 Respiratory rate 20 /min [facility] 12-16-2023 09:22-0400 SaO2% (BldA) [Mass fraction] 99 % [facility] 12-16-2023 09:22-0400 Systolic blood pressure 113 mm[Hg] [facility] 12-19-2021 09:30-0400 Body height 152.4 cm Candi George Other [employer]: [employer] [facility] [address] Other 12-19-2021 09:30-0400 Body mass index (BMI) [Ratio] 34.37 kg/m2 Candi George Other [place] Other 12-19-2021 09:30-0400 Body temperature 96.9 [degF] Candi George Other [place] Other 12-19-2021 09:30-0400 Body weight 79.83 kg Candi George Other [place] Other 12-19-2021 09:30-0400 Diastolic blood pressure 72 mm[Hg] Candi George Other [employer] Other 12-19-2021 09:30-0400 Respiratory rate 20 /min Candi George Other [place] Other 12-19-2021 09:30-0400 SaO2% (BldA) [Mass fraction] 99 % Candi George Other [employer] Other 12-19-2021 09:30-0400 Systolic blood pressure 120 mm[Hg] Candi George Other [place] Other 10-13-2020 14:25-0400 BP Diastolic 89 mm[Hg] [employer] Phone: 10-13-2020 14:25-0400 BP Systolic 135 mm[Hg] [employer] Phone: 10-13-2020 14:25-0400 Pulse (Heart Rate) 81 /min [employer] Phone: 10-13-2020 14:25-0400 Respiratory Rate 16 /min [employer] Work Phone: 10-13-2020 14:00-0400 Pulse Oximetry 98 % [employer] Phone: 10-13-2020 11:13-0400 BMI (Body Mass Index) 34.76 kg/m2 [employer] Phone: 10-13-2020 11:13-0400 Body Temperature 98.01 [degF] [employer] Work Phone: 10-13-2020 11:130400 Body weight 80.74 kg [facility] Work Phone: Encounters Encounter Date Encounter Type Care Provider Facility Start: 08-16-2025 ambulatory Frank Garcia ty:EU Tiffany Start: 09-21-2024 End: 09-21-2024 Clinisync Result Encounter Generic External Data Provider [facility] External Department Unsolicited Start: 09-21-2024 End: 09-21-2024 Clinisync Result Encounter Generic External Data Provider [facility] External Department Unsolicited Start: 09-11-2024 End: 09-11-2024 Clinisync Result Encounter Josefa Martinez MD Work Phone: [facility] External Department Unsolicited Start: 09-11-2024 End: 09-11-2024 Clinisync Result Encounter Josefa Martinez MD Work Phone: [facility] External Department Unsolicited Start: 08-31-2024 End: 08-31-2024 Patient encounter status Josefa Martinez MD Work Phone: [facility] Start: 08-31-2024 End: 08-31-2024 Periodic preventive med est patient 40-64yrs Josefa Martinez MD Work Phone: [facility] Comment on above: Rheumatoid arthritis involving multiple sites with positive rheumatoid factor (CMS/HCC) (Primary Dx); Hyperlipidemia, unspecified hyperlipidemia type (CMS/HCC); Wellness examination; Encounter for screening mammogram for malignant neoplasm of breast; Deficiency anemia; Other secondary pulmonary hypertension (CMS/HCC); Systemic sclerosis, unspecified (CMS/HCC); Interstitial pulmonary disease, unspecified (CMS/HCC); Pulmonary hypertension, unspecified (CMS/HCC); Rheumatoid arthritis with rheumatoid factor of multiple sites without organ or systems involvement (CMS/HCC); Rheumatoid arthritis, unspecified (CMS/HCC); Unspecified atrial fibrillation (CMS/HCC); Pulmonary fibrosis, unspecified (CMS/HCC); Primary pulmonary hypertension (CMS/HCC); Other specified interstitial pulmonary diseases (CMS/HCC); Non-pressure chronic ulcer of other part of left foot with fat layer exposed (CMS/HCC) Start: 08-31-2024 End: 08-31-2024 ambulatory JOSEFA MARTINEZ Not Available Start: 08-14-2024 End: 08-14-2024 ambulatory Frank Venu JUNIOR Facility:[facility] Start: 08-07-2024 End: 08-07-2024 Clinisync Result Encounter Generic External Data Provider [facility] Unsolicited Start: 08-07-2024 End: 08-07-2024 Clinisync Result Encounter Generic External Data Provider [facility] Unsolicited Start: 07-14-2024 End: 07-14-2024 ambulatory DRUVenu Do [facility] Start: 05-25-2024 End: 05-25-2024 Clinisync [...] Start: 03-05-2024 End: 03-05-2024 ambulatory FLORY Do [facility] Start: 03-04-2024 ambulatory FLORY Do [facility] Start: 02-07-2024 End: 02-07-2024 ambulatory Frank Venu JUNIOR Facility:[facility] Start: 12-26-2023 End: 12-26-2023 ambulatory FLORY Do [facility] Start: 12-18-2023 End: 12-18-2023 ambulatory [facility] Start: 12-16-2023 End: 12-16-2023 ambulatory [facility] Work Phone: Start: 12-16-2023 End: 12-16-2023 Patient encounter procedure [facility]ly [facility] Work Phone: Start: 12-13-2023 End: 12-16-2023 ambulatory [facility] Start: 12-04-2023 End: 12-04-2023 ambulatory FLORY Do [facility] Start: 09-03-2023 End: 09-03-2023 ambulatory FLORY Do [facility] Start: 08-06-2023 Patient encounter status Generic Pro vider [facility] Start: 11-06-2022 End: 11-07-[address] VINICIUS BULLOCK Facility:[facility] Start: 09-11-2022 End: 09-12-[address] VINICIUS BULLOCK Facility:[facility] Start: 08-13-2022 End: 08-13-2022 ambulatory Josefa Martinez Facility:[facility] Start: 08-13-2022 End: 08-13-2022 ambulatory MD Josefa Martinez Work Phone: [facility] Work Phone: Start: 08-13-2022 End: 08-13-2022 Patient encounter procedure MD Josefa Martinez Work Phone: [facility] Work Phone: Start: 07-25-2022 End: 07-25-2022 ambulatory Josefa Martinez Facility:[facility] Start: 07-25-2022 End: 07-25-2022 ambulatory MD Josefa Martinez Work Phone: [facility] Work Phone: Start: 07-25-2022 End: 07-25-2022 Patient encounter procedure MD Josefa Martinez Work Phone: [facility] Work Phone: Start: 06-11-2022 End: 06-11-2022 Subsequent hospital visit by physician Josefa Martinez MD Work Phone: [email or web address] Start: 04-11-2022 End: 04-11-2022 Subsequent hospital visit by physician Josefa Martinez MD Work Phone: [email or web address] Start: 02-15-2022 End: 02-15-2022 Subsequent hospital visit by physician Josefa Martinez MD Work Phone: [facility] Start: 12-19-2021 End: 12-19-2021 ambulatory Candi George Other [facility] [address] Other Start: 12-19-2021 Office outpatient vi sit 15 minutes Juan Luisjami Bernsteinyonas [facility] Start: 11-27-2021 End: 11-29-2021 Subsequent hospital visit by physician Apple Cat Scan Room [facility] Laboratory Comment on above: Pulmonary fibrosis ( HCC) Start: 10-03-2021 End: 10-03-2021 Subsequent hospital visit by physician Josefa Martinez MD Work Phone: [facility] Start: 05-30-2021 End: 05-30-2021 Subsequent hospital visit by physician Josefa Martinez Work Phone: [facility] Start: 04-04-2021 End: 04-04-2021 Subsequent hospital visit by physician Josefa Martinez Work Phone: [facility] Start: 02-21-2021 End: 02-23-2021 Subsequent hospital visit by physician Apple Manriquez Dr Room 2 [facility]iology Comment on above: Urinary urgency Start: 02-07-2021 End: 02-07-2021 Subsequent hospital visit by physician Josefa Martinez [facility] Phone[facility] Start: 12-13-2020 End: 12-13-2020 Subsequent hospital visit by physician Josefa Martinez Work Phone: [facility] Start: 10-13-2020 End: 10-13-2020 Emergency department patient visit Zakiya Knight Work Phone: [facility] ED Comment on above: Fall, initial encoun ter (Primary Dx); Abrasion of scalp, initial encounter Start: 10-13-2020 End: 10-13-2020 Subsequent hospital visit by physician Josefa Martinez [facility] Start: 11-10-2019 End: 11-12-2019 Subsequent hospital visit by physician Apple Manriquez Dr Room 4 [facility]iology Comment on above: Kidney stone Start: 01-27-2018 End: 01-28-2018 Ambulatory DEFAULT PHYSICIAN Facility:[facility] Start: 04-25-2017 End: 04-26-2017 Ambulatory DEFAULT PHYSICIAN Facility:[facility] Start: 04-15-2017 End: 04-16-2017 Ambulatory OREN LOPES Facility:[facility] Start: 02-13-2017 End: 02-14-2017 Ambulatory BOB BROWN Facility:[facility] Procedures Date Procedure Procedure Detail Performing Clinician Start: 09-21-2024 HP LIVER PANEL Generi c External Data Provider Start: 09-21-2024 [facility] CREATININE Generic External Data Provider Start: 09-11-2024 MM TOMOSYNTHESIS SCR EENING BI Josefa Martinez MD Work Phone: Start: 09-11-2024 Mammography Josefa Martinez MD Work Phone: Start: 08-07-2024 ALL CBC WITH AUTO DIFF Generic External Data Provider Start: 07-14-2024 Follow-up visit Follow-up FLORY PRUITT [...] Phone: Start: 04-11-2022 Hepatic function panel Vinicius Bulolck MD Work Phone: Start: 02-15-2022 Creatinine blood [...] Radiologic exam abdo men 1 view Frank Venu Joe Work Phone: Start: 02-07-2021 Creatinine blood [...] DTaP/Tdap/Td vaccine (4 - Td or Tdap) [facility] Start: 08-31-2028 DTaP/Tdap/Td vaccine (4 - Td) DTaP/Tdap/Td vaccine (4 - Td) [place], [place] Start: 08-19-2026 Screening for malign ant neoplasm of colon [facility] Start: 08-13-2026 Screening for malign ant neoplasm of cervix [facility] Start: 09-11-2025 Screening for malign ant neoplasm of breast Mammogram [facility] Start: 08-31-2024 End: 08-31-2025 Comprehensive metabolic 2000 panel - Serum or Plasma Comprehensive metabolic panel Lab Routine Hyperlipidemia, unspecified hyperlipidemia type (CMS/HCC) Wellness examination Deficiency anemia Expected: 08/31/2024 (Approximate), Expires: 08/31/2025 [facility] Comment on above: Expected: 08/31/2024 (Approximate), Expires: 08/31/2025 Start: 08-31-2024 End: 10-29-2025 DBT Breast - bilateral screening Bilateral screening mammogram with tomosynthesis Imaging Routine Wellness examination Encounter for screening mammogram for malignant neoplasm of breast Expected: 08/31/2024 (Approximate), Expires: 10/29/2025 [facility] Comment on above: Expected: 08/31/2024 (Approximate), Expires: 10/29/2025 Start: 08-31-2024 End: 08-31-2025 Lipid 1996 panel - Serum or Plasma Lipid panel Lab Routine Hyperlipidemia, unspecified hyperlipidemia type (CMS/HCC) Wellness examination Expected: 08/31/2024 (Approximate), Expires: 08/31/2025 [facility] Work Phone: Comment on above: Expected: 08/31/2024 (Approximate), Expires: 08/31/2025 Start: 08-14-2024 Screening for malign ant neoplasm of breast Mammogram [facility] Start: 03-29-2024 Influenza vaccination Influenza Vacc ine (#1) [facility] Start: 10-03-2022 Creatinine measurement Creatinine [facility] Start: 05-30-2022 Creatinine measurement Creatinine mo [facility] [employer] Start: 04-04-2022 Creatinine measurement Creatinine mo [facility] [employer] Work Phone: Start: 03-29-2022 Influenza vaccination Flu vaccine (# 1) [facility] [employer] Start: 02-26-2022 Influenza vaccination Flu vaccine (# 1) [facility] [employer] Start: 02-07-2022 [facility]inine [facility]: Start: 12-13-2021 [facility]: Start: 10-13-2021 Creatinine [facility]: Start: 10-11-2021 COVID-19 Vaccine (4 - Booster for Caden series) COVID-19 Vaccine (4 - Booster for Caden series) [facility] Start: 03-29-2021 Influenza vaccination [facility] Start: 12-22-2020 COVID-19 Vaccine (2 - Booster for Caden series) COVID-19 Vaccine (2 - Booster for Caden series) [facility] Start: 03-29-2020 Influenza vaccination [place], [place] Start: 10-06-2017 Lipid panel [facility] Start: 10-06-2017 Lipid screen Lipid screen [place], [place] Start: 10-23-2016 Creatinine monitoring Creatinine mon itoring [place], [place] Start: 10-23-2016 Potassium [Moles/volume] in Serum or Plasma Potassium [facility] Start: 10-23-2016 Potassium monitoring Potassium monit oring [facility] Start: 03-24-2016 Shingles Vaccine (2 of 3) Shingles Vaccine (2 of 3) [facility] Start: 2014 Breast cancer screen Breast cancer s creen [place], [place] Start: 2014 Colon cancer screen colonoscopy Colon cancer screen colonoscopy [place], [place] Start: 2014 Screening for malign ant neoplasm of breast Breast cancer screen [facility] Start: 2014 Screening for malign ant neoplasm of colon Colon cancer screen colonoscopy [facility] [employer] Phone: Start: 08-30-2012 Screening for malign ant neoplasm of colon [facility] [employer] Start: 08-31-2011 Screening for malign ant neoplasm of colon Colorectal Cancer Screen [facility] [employer] Start: 2009 Screening for malign ant neoplasm of colon [facility] [employer] Start: 1994 Screening for malign ant neoplasm of cervix [facility] [employer] Start: 1985 Cervical cancer screen Cervical canc er screen [place], [place] Start: 1985 Screening for malign ant neoplasm of cervix [facility] [employer] Start: 1982 Hepatitis C screening Hepatitis C [facility] [employer] Start: 1980 COVID-19 Vaccine (1) COVID-19 Vaccin e (1) [facility] [employer] Phone: Start: 1979 HIV screen HIV screen [place], [place] Start: 1979 HIV screening [facility] Start: 1976 COVID-19 Vaccine (1) COVID-19 Vaccin e (1) [facility] [employer] Phone: Start: 1976 Depression Screen Depression Screen [facility] Start: 1964 Hepatitis C screen Hepatitis C scree n [place], [place] Start: 1964 Hepatitis C screening Hepatitis C sc [facility] [employer] Start: 1964 Screening for malign ant neoplasm of colon [facility] CT Chest WO contrast [facility] Immunizations Immunization Date Immunization Notes Care Provider Suki conde 05-22-2022 influenza, injectabl e, quadrivalent, preservative free Generic Provider [facility] 05-22-2022 influenza virus vaccine, unspecified formulation Generic Provider [facility] 08-16-2021 COVID-19 Moderna Candi Peters n Other [facility] 05-22-2021 influenza, injectabl e, quadrivalent, preservative free Generic Provider [facility] 10-27-2020 SARS-CoV-2, Unspecified [facility] COVID-19 Vaccine Caden - Documentation Purposes Only Candi eGorge Other [facility] 05-20-2020 influenza, injectabl e, quadrivalent, preservative free Generic Provider [facility] 08-31-2018 tetanus toxoid, redu huong diphtheria toxoid, and acellular pertussis vaccine, adsorbed Generic Provider [facility] 05-14-2018 influenza, injectabl e, quadrivalent, contains preservative Generic Provider [facility] 10-12-2016 pneumococcal conjuga te vaccine, 13 valent Generic Provider [facility] 10-12-2016 tetanus toxoid, redu huong diphtheria toxoid, and acellular pertussis vaccine, adsorbed Generic Provider [facility] 05-10-2016 influenza, injectabl e, quadrivalent, contains preservative Generic Provider [facility] 01-28-2016 zoster vaccine, live Generic Provide r [facility] 10-19-2015 tetanus toxoid, redu huong diphtheria toxoid, and acellular pertussis vaccine, adsorbed Generic Provider [facility] Healthcare Payers Date Payer Category Payer Private Health Insurance [facility] [id number] 2022 Unknown 2022 Self-pay [id number] 2019 Unknown [employer] xxxxxxxxx 2019-Present [phone] [address] [place] [address] xxxxxxxxx [id number] 2015 Unknown [id number] 1964 Unknown [id number] 1964 Unknown [id number] 1964 Unknown [id number] 1964 Unknown [id number] 1964 Unknown [id number] 1964 Unknown [id number] 1964 Unknown [id number] 1959 Unknown [id number] Unknown [id number] Unknown [id number] Social History Date Type Detail Facility Start: 01-29-2013 End: 08-31-2024 Tobacco smoking status NHIS Former smoker [employer] Start: 01-29-2013 End: 05-20-2022 Alcohol intake Current non-drinker of alcohol (finding) [place], [place] Start: 1965 Sex Assigned At Not on file M [place] Start: 10-13-2020 End: 08-31-2024 Tobacco use and exposure Never used [employer] Work Phone: Start: 05-10-2022 End: 05-20-2022 Exposure to SARS-CoV-2 (event) Not sure [facility] Phone: Start: 08-13-2023 End: 08-30-2024 Sex Assigned At [facility] End: 11-26-2008 History of tobacco use Current smoker [facility] [employer] Phone: Start: 1965 Sex Assigned At Female F [facility] End: 11-26-2008 History of tobacco use Cigarette Smoker [facility] Start: 12-19-2023 End: 08-31-2024 Alcoholic beverage intake Current drinker of alcohol (finding) [facility] Start: 08-13-2023 End: 08-30-2024 History of Social function [facility] Start: 08-05-2023 Tobacco Comment Last smoke: 1-5 year s [facility] Start: 08-05-2023 Alcohol Comment Points: 1, Interpretation: Negative [facility] How often do you nee d to have someone help you when you read instructions, pamphlets, or other written material from your doctor or pharmacy [SILS] Never [facility] Do you belong to any clubs or organizations such as congregation groups, unions, fraternal or athletic groups, or school groups? No [facility] Are you now , , , , never or living with a partner? [facility] How often to you hav e a drink containing alcohol? Monthly or less [facility] How many standard dr inks containing alcohol do you have on a typical day? 1 or 2 [facility] How often do you hav e 6 or more drinks on 1 occasion? Less than monthly [facility] Do you feel stress - tense, restless, nervous, or anxious, or unable to sleep at night because your mind is troubled all the time - these days [OSQ] Only a little [facility] (I/We) worried wheth er (my/our) food would run out before (I/we) got money to buy more. Never true [facility] Clinical Notes 12-19-2021 to 08-31-2024 Josefa Martinez MD - 08/31/2024 9:03 AM Bogdan Martinez MD - 08/31/2024 9:02 AM Bogdan Martinez MD - 08/31/2024 9:02 AM Bogdan Martinez MD - 08/31/2024 9:02 AM EST Note Date & Type Note Facility 08-31-2024 History of Presen t illness Narrative Associated Problem(s): Atrial fibrillation (CMS/HCC) This is a chronic medical condition that is stable since last assessment. No changes in treatment are suggested at this time. Continue Current meds. Associated Problem(s): Rheumatoid arthritis involving multiple sites with positive rheumatoid factor (CMS/HCC) Follow up rheumatology Associated Problem(s): Wellness examination Modest Alcohol consumption No Tobacco Seat Belt use Exercise Regularly No Text Drive Social Accountability Associated Problem(s): Systemic sclerosis, unspecified (CMS/HCC) F/Up with rheumatology Images from the original note were not included. Subjective Patient ID: Sylvia Moon is a 59 y.o. female who presents for Annual Exam. Pt is here for her annual visit, pt has no concerns Pt needs refill on her tramadol , not in list been awhile since she had this refilled Current Outpatient Medications on File Prior to Visit Medication Sig Dispense Refill ambrisentan (Letairis) 5 MG tablet Take 5 mg by mouth in the morning. tadalafil (Cialis) 20 MG tablet 2 tabs daily aspirin 81 MG EC tablet Take 81 mg by mouth in the morning. atorvastatin (Lipitor) 40 MG tablet TAKE 1 TABLET BY MOUTH IN THE MORNING 30 tablet 0 carvedilol (Coreg) 6.25 MG tablet Take 1 tablet by mouth twice daily with food 200 tablet 3 celecoxib (CeleBREX) 200 MG capsule TAKE 1 CAPSULE BY MOUTH ONCE DAILY WITH FOOD FOR 90 DAYS 100 capsule 3 cholecalciferol (Vitamin D-3) 125 MCG (5000 UT) tablet Take 5,000 Units by mouth in the morning. ferrous sulfate 325 (65 Fe) MG tablet Take 325 mg by mouth in the morning. Take with meals. furosemide (Lasix) 20 MG tablet Take 1 tablet (20 mg) by mouth in the morning and 1 tablet (20 mg) before bedtime. 200 tablet 3 hydroCHLOROthiazide (HYDRODiuril) 25 MG tablet 1 (one) time each day at the same time hydroxychloroquine (Plaquenil) 200 MG tablet TAKE 1 TABLET BY MOUTH EVERY OTHER DAY ALTERNATE WITH 1 TAB TWICE A DAY EVERY OTHER DAY. TAKE WITH FOOD, YEARLY EYE EXAM. lisinopril 10 MG tablet Take 1 tablet by mouth once daily 100 tablet 3 loratadine (Claritin) 10 MG tablet Take 1 tablet by mouth Daily NIFEdipine XL (Procardia XL) 60 MG 24 hr tablet Take 1 tablet by mouth once daily 100 tablet 3 omeprazole (PriLOSEC) [address] capsule Take 20 mg by mouth in the morning and 20 mg in the evening. Take before meals. sulfaSALAzine (Azulfidine) 500 MG EC tablet Take 1,000 mg by mouth in the morning and 1,000 mg before bedtime. tolterodine LA (Detrol LA) 4 MG 24 hr capsule Take 4 mg by mouth in the morning and 4 mg before bedtime. No current facility-administered medications on file prior to visit. I have reviewed and reconciled the history and medication list with the patient today. Allergies Allergen Reactions Amoxicillin Rash Amoxicillin-Pot Clavulanate Rash Social History Tobacco Use Smoking status: Former Current packs/day: 0.00 Average packs/day: 0.5 packs/day for 15.0 years (7.5 ttl pk-yrs) Types: Cigarettes Quit date: 11/26/2008 Years since quittin.7 Smokeless tobacco: Never Tobacco comments: Last smoke: 1-5 years Substance Use Topics Alcohol use: Yes Alcohol/week: 2.0 standard drinks of alcohol Types: 1 Glasses of wine, 1 Cans of beer per week Comment: Points: 1, Interpretation: Negative Drug use: Never Family History Problem Relation Name Age of Onset Hypertension Mother Brenda Martinez Cancer Mother Brenda Martinez Diabetes Father Maylin Martinez Stroke Father Maylin Martinez Hypertension Father Maylin Martinez Colon cancer Brother Benton Martinez Cancer Brother Benton Martinez Down syndrome Son Past Medical History: Diagnosis Date Allergic 2010 Chest pain 2012 Diverticulosis DUB (dysfunctional uterine bleeding) 2010 GERD (gastroesophageal reflux disease) 2008 History of bone scan 01/23/2018 Dexa shows hHip Tscore -1.6 consistent with Osteopenia History of CT scan 11/2017 Shows stable mild pulmonary fibrosis History of CT scan 12/12/2022 Stable Posterior basal prominent reticular opacities in B/L lobes. Dilated pulmonary artery History of echocardiogram 01/27/2018 Echo EF 55%, Mild DD Ggrade 1, Mild AoV regurg, Mild-mod TR, Moderately elevated right sided pressures mild Pulm Regurg History of echocardiogram 06/15/2020 LV is Normal, Normal EF 55%, RV systolic function appears reduced, elevated right sided pressures., Left atrium is mildly enlarged, mild mitral regurgitation History of echocardiogram 12/09/2020 LV is Normal EF 55%, RVSP 63, LAE mild, mild-moderte tricuspid regurg History of echocardiogram 06/02/2021 LV EF 55%, RV function reduced Severely elevated Right Pressures History of echocardiogram 09/21/2022 Echo: Normal LV function EF 55%. Mild pulmonary regurgitation, moderate TR, LA is mildly enlarged Hypertension (CMS/[facility]) Kidney stone on right side Primary pulmonary hypertension (CMS/HCC) 08/02/2023 Pulmonary fibrosis (CMS/HCC) 08/02/2023 Pulmonary hypertension (CMS/HCC) 08/02/2023 Reflux gastritis 08/02/2023 Rheumatoid arthritis involving multiple sites with positive rheumatoid factor (CMS/HCC) 08/02/2023 Scleroderma (CMS/HCC) 08/02/2023 Past Surgical History: Procedure Laterality Date CARDIAC CATHETERIZATION Disease: Pulmonary Hypertension CARDIAC CATHETERIZATION Disease: Chest pain CARDIAC CATHETERIZATION Right 10/04/2022 RHC: PAH with mildly elevated right sided heart pressures CARDIAC CATHETERIZATION Right 12/18/2023 SECTION, CLASSIC 2001 SECTION, LOW TRANSVERSE 2001 COLONOSCOPY DILATION AND CURETTAGE OF UTERUS 2000 OTHER SURGICAL HISTORY Procedure: Novasure; Disease: DUB OTHER SURGICAL HISTORY 2009 Bottom lower lip resection OTHER SURGICAL HISTORY Left 04/15/2017 Thumb fusion for subluxation OTHER SURGICAL HISTORY Right Hav 1st mpj TUBAL LIGATION Bilateral 2001 Visit Vitals Smoking Status Former Review of Systems Constitutional: Negative for chills, fatigue, fever and unexpected weight change. Respiratory: Negative for cough and shortness of breath. Cardiovascular: Negative for chest pain. Gastrointestinal: Negative for abdominal pain, blood in stool, constipation, diarrhea, nausea and vomiting. Genitourinary: Negative for dysuria, enuresis, frequency and hematuria. Musculoskeletal: Negative for back pain. Neurological: Negative for dizziness, tremors, syncope, facial asymmetry and speech difficulty. Psychiatric/Behavioral: Negative for agitation, behavioral problems, confusion and dysphoric mood. The patient is not nervous/anxious. Objective Physical Exam Vitals reviewed. Constitutional: General: She is not in acute distress. Appearance: Normal appearance. HENT: Head: Normocephalic. Right Ear: Tympanic membrane, ear canal and external ear normal. Left Ear: Tympanic membrane, ear canal and external ear normal. Nose: Nose normal. Mouth/Throat: Mouth: Mucous membranes are moist. Eyes: Extraocular Movements: Extraocular movements intact. Conjunctiva/sclera: Conjunctivae normal. Pupils: Pupils are equal, round, and reactive to light. Neck: Vascular: No carotid bruit. Cardiovascular: Rate and Rhythm: Normal rate and regular rhythm. Pulses: Normal pulses. Heart sounds: Normal heart sounds. Pulmonary: Effort: Pulmonary effort is normal. No respiratory distress. Breath sounds: Normal breath sounds. Abdominal: General: Abdomen is flat. Bowel sounds are normal. Palpations: Abdomen is soft. Tenderness: There is no abdominal tenderness. Musculoskeletal: General: Normal range of motion. Cervical back: Normal range of motion and neck supple. Skin: General: Skin is warm and dry. Capillary Refill: Capillary refill takes 2 to 3 seconds. Neurological: General: No focal deficit present. Mental Status: She is alert and oriented to person, place, and time. Psychiatric: Mood and Affect: Mood normal. Assessment/Plan Problem List Items Addressed This Visit Primary pulmonary hypertension (CMS/HCC) Pulmonary fibrosis, unspecified (CMS/HCC) Systemic sclerosis, unspecified (CMS/HCC) F/Up with rheumatology Relevant Medications traMADol (Ultram) 50 MG tablet Rheumatoid arthritis involving multiple sites with positive rheumatoid factor (CMS/HCC) - Primary Follow up rheumatology Atrial fibrillation (CMS/HCC) This is a chronic medical condition that is stable since last assessment. No changes in treatment are suggested at this time. Continue Current meds. Deficiency anemia Relevant Orders Comprehensive metabolic panel Hyperlipidemia (CMS/HCC) Relevant Orders Lipid panel Comprehensive metabolic panel Wellness examination Modest Alcohol consumption No Tobacco Seat Belt use Exercise Regularly No Text Drive Social Accountability Relevant Orders Lipid panel Comprehensive metabolic panel Bilateral screening mammogram with tomosynthesis Other Visit Diagnoses Encounter for screening mammogram for malignant neoplasm of breast Relevant Orders Bilateral screening mammogram with tomosynthesis Other secondary pulmonary hypertension (CMS/HCC) Interstitial pulmonary disease, unspecified (CMS/HCC) Relevant Medications traMADol (Ultram) 50 MG tablet Pulmonary hypertension, unspecified (CMS/HCC) Rheumatoid arthritis with rheumatoid factor of multiple sites without organ or systems involvement (CMS/HCC) Rheumatoid arthritis, unspecified (CMS/HCC) Unspecified atrial fibrillation (CMS/HCC) Other specified interstitial pulmonary diseases (CMS/HCC) Non-pressure chronic ulcer of other part of left foot with fat layer exposed (CMS/HCC) No follow-ups on file. documented in this encounter [facility] 08-31-2024 Evaluation note Diagnosis Stage 3a chronic kidney disease (HCC) (CMS/HCC)- Primary Abnormal glucose tolerance test Impaired glucose tolerance test Benign essential hypertension (CMS/HCC) Essential hypertension, benign Encounter for screening mammogram for malignant neoplasm of breast Rheumatoid arthritis in remission (CMS/HCC) Wellness examination Screening for malignant neoplasm of colon Scleroderma (CMS/HCC) Systemic sclerosis Rheumatoid arthritis involving multiple sites with positive rheumatoid factor (CMS/HCC)- Primary Hyperlipidemia, unspecified hyperlipidemia type (CMS/HCC) Wellness examination Encounter for screening mammogram for malignant neoplasm of breast Deficiency anemia Unspecified deficiency anemia Other secondary pulmonary hypertension (CMS/HCC) Systemic sclerosis, unspecified (CMS/HCC) Interstitial pulmonary disease, unspecified (CMS/HCC) Pulmonary hypertension, unspecified (CMS/HCC) Rheumatoid arthritis with rheumatoid factor of multiple sites without organ or systems involvement (CMS/HCC) Rheumatoid arthritis, unspecified (CMS/HCC) Unspecified atrial fibrillation (CMS/HCC) Pulmonary fibrosis, unspecified (CMS/HCC) Primary pulmonary hypertension (CMS/HCC) Primary pulmonary hypertension Other specified interstitial pulmonary diseases (CMS/HCC) Non-pressure chronic ulcer of other part of left foot with fat layer exposed (CMS/HCC) [id number] NotePatient Education Obstetrics and Gynecology Overactive Bladder, Adult Overactive bladder is a condition in which a person has a sudden and frequent need to urinate. A person might also leak urine if he or she cannot get to the bathroom fast enough (urinary incontinence). Sometimes, symptoms can interfere with work or social activities. What are the causes? Overactive bladder is associated with poor nerve signals between your bladder and your brain. Your bladder may get the signal to empty before it is full. You may also have very sensitive muscles thatmake your bladder squeeze too soon. This condition may also be caused by other factors, such as: ??? Medical conditions: ? Urinary tract infection. ? Infection of nearby tissues. ? Prostate enlargement. ? Bladder stones, inflammation, or tumors. ? Diabetes. ? Muscle or nerve weakness, especially from these conditions: ? A spinal cord injury. ? Stroke. ? Multiple sclerosis. ? Parkinson's disease. ??? Other causes: ? Surgery on the uterus or urethra. ? Drinking too much caffeine or alcohol. ? Certain medicines, especially those that eliminate extra fluid in the body (diuretics). ? Constipation. What increases the risk? You may be at greater risk for overactive bladder if you: ??? Are an older adult. ??? Smoke. ??? Are going through menopause. ??? Have prostate problems. ??? Have a neurological disease, such as stroke, dementia, Parkinson's disease, or multiple sclerosis (MS). ??? Eat or drink alcohol, spicy food, caffeine, and other things that irritate the bladder. ??? Are overweight or obese. What are the signs or symptoms? Symptoms of this condition include a sudden, strong urge to urinate. Other symptoms include: ??? Leaking urine. ??? Urinating 8 or more times a day. ??? Waking up to urinate 2 or more times overnight. How is this diagnosed? This condition may be diagnosed based on: ??? Your symptoms and medical history. ??? A physical exam. ??? Blood or urine tests to check for possible causes, such as infection. You may also need to see a health care provider who specializes in urinary tract problems. This is called a urologist. How is this treated? Treatment for overactive bladder depends on the cause of your condition and whether it is mild or severe. Treatment may include: ??? Bladder training, such as: ? Learning to control the urge to urinate by following a schedule to urinate at regular intervals. ? Doing Kegel exercises to strengthen the pelvic floor muscles that support your bladder. ??? Special devices, such as: ? Biofeedback. This uses sensors to help you become aware of your body's signals. ? Electrical stimulation. This uses electrodes placed inside the body (implanted) or outside the body. These electrodes send gentle pulses of electricity to strengthen the nerves or muscles that control the bladder. ? Women may use a plastic device, called a pessary, that fits into the vagina and supports the bladder. ??? Medicines, such as: ? Antibiotics to treat bladder infection. ? Antispasmodics to stop the bladder from releasing urine at the wrong time. ? Tricyclic antidepressants to relax bladder muscles. ? Injections of botulinum toxin type A directly into the bladder tissue to relax bladder muscles. ??? Surgery, such as: ? A device may be implanted to help manage the nerve signals that control urination. ? An electrode may be implanted to stimulate electrical signals in the bladder. ? A procedure may be done to change the shape of the bladder. This is done only in very severe cases. Follow these instructions at home: Eating and drinking ??? Make diet or lifestyle changes recommended by your health care provider. These may include: ? Drinking fluids throughout the day and not only with meals. ? Cutting down on caffeine or alcohol. ? Eating a healthy and balanced diet to prevent constipation. This may include: ? Choosing foods that are high in fiber, such as beans, whole grains, and fresh fruits and vegetables. ? Limiting foods that are high in fat and processed sugars, such as fried and sweet foods. Lifestyle ??? Lose weight if needed. ??? Do not use any products that contain nicotine or tobacco. These include cigarettes, chewing tobacco, and vaping devices, such as e-cigarettes. If you need help quitting, ask your health care provider. General instructions ??? Take [id number] and prescription medicines only as told by your health care provider. ??? If you were prescribed an antibiotic medicine, take it as told by your health care provider. Donot stop taking the antibiotic even if you start to feel better. ??? Use any implants or pessary as told by your health care provider. ??? If needed, wear pads to absorb urine leakage. ??? Keep a log to track how much and when you drink, and whe (more content not included)...[facility]12-17-2024 NoteSubjective Sylvia Moon is a 59 y.o. year old female [...] (CMS/HCC) Chest pain Coronary artery disease involving [place] coronary artery of ke[place] heart without angina pectoris Deficiency anemia Essential [...] Rfl: 3 macitentan (Opsumit) (more content not included)...[facility]08-08-2024 NoteSubjective Sylvia Moon is a 58 y.o. year old female patient being seen for pulmonary arterial hypertension. Patient relatively doing well. She denied chest pain or chest discomfort. She has stable dyspnea on exertion with minimal dizziness but no palpitations. Patient Active Problem List Diagnosis Arthropathy Atrial fibrillation (CMS/HCC) Chest pain Coronary artery disease involving [place] coronary artery of [place] heart without angina pectoris Deficiency anemia Essential [...] GLUCOSE 101 (H) 10/03/2022 (more content not included)...[facility]07-12-2024 NotePatient Education Obstetrics and Gynecology Overactive Bladder, Adult Overactive bladder is a condition in which a person has a sudden and frequent need to urinate. A person might also leak urine if he or she cannot get to the bathroom fast enough (urinary incontinence). Sometimes, symptoms can interfere with work or social activities. What are the causes? Overactive bladder is associated with poor nerve signals between your bladder and your brain. Your bladder may get the signal to empty before it is full. You may also have very sensitive muscles thatmake your bladder squeeze too soon. This condition may also be caused by other factors, such as: ? Medical conditions: ? Urinary tract infection. ? Infection of nearby tissues. ? Prostate enlargement. ? Bladder stones, inflammation, or tumors. ? Diabetes. ? Muscle or nerve weakness, especially from these conditions: ? A spinal cord injury. ? Stroke. ? Multiple sclerosis. ? Parkinson's disease. ? Other causes: ? Surgery on the uterus or urethra. ? Drinking too much caffeine or alcohol. ? Certain medicines, especially those that eliminate extra fluid in the body (diuretics). ? Constipation. What increases the risk? You may be at greater risk for overactive bladder if you: ? Are an older adult. ? Smoke. ? Are going through menopause. ? Have prostate problems. ? Have a neurological disease, such as stroke, dementia, Parkinson's disease, or multiple sclerosis(MS). ? Eat or drink alcohol, spicy food, caffeine, and other things that irritate the bladder. ? Are overweight or obese. What are the signs or symptoms? Symptoms of this condition include a sudden, strong urge to urinate. Other symptoms include: ? Leaking urine. ? Urinating 8 or more times a day. ? Waking up to urinate 2 or more times overnight. How is this diagnosed? This condition may be diagnosed based on: ? Your symptoms and medical history. ? A physical exam. ? Blood or urine tests to check for possible causes, such as infection. You may also need to see a health care provider who specializes in urinary tract problems. This is called a urologist. How is this treated? Treatment for overactive bladder depends on the cause of your condition and whether it is mild or severe. Treatment may include: ? Bladder training, such as: ? Learning to control the urge to urinate by following a schedule to urinate at regular intervals. ? Doing Kegel exercises to strengthen the pelvic floor muscles that support your bladder. ? Special devices, such as: ? Biofeedback. This uses sensors to help you become aware of your body's signals. ? Electrical stimulation. This uses electrodes placed inside the body (implanted) or outside the body. These electrodes send gentle pulses of electricity to strengthen the nerves or muscles that control the bladder. ? Women may use a plastic device, called a pessary, that fits into the vagina and supports the bladder. ? Medicines, such as: ? Antibiotics to treat bladder infection. ? Antispasmodics to stop the bladder from releasing urine at the wrong time. ? Tricyclic antidepressants to relax bladder muscles. ? Injections of botulinum toxin type A directly into the bladder tissue to relax bladder muscles. ? Surgery, such as: ? A device may be implanted to help manage the nerve signals that control urination. ? An electrode may be implanted to stimulate electrical signals in the bladder. ? A procedure may be done to change the shape of the bladder. This is done only in very severe cases. Follow these instructions at home: Eating and drinking ? Make diet or lifestyle changes recommended by your health care provider. These may include: ? Drinking fluids throughout the day and not only with meals. ? Cutting down on caffeine or alcohol. ? Eating a healthy and balanced diet to prevent constipation. This may include: ? Choosing foods that are high in fiber, such as beans, whole grains, and fresh fruits and vegetables. ? Limiting foods that are high in fat and processed sugars, such as fried and sweet foods. Lifestyle ? Lose weight if needed. ? Do not use any products that contain nicotine or tobacco. These include cigarettes, chewing tobacco, and vaping devices, such as e-cigarettes. If you need help quitting, ask your health care provider. General instructions ? Take [id number] and prescription medicines only as told by your health care provider. ? If you were prescribed an antibiotic medicine, take it as told by your health care provider. Do not stop taking the antibiotic even if you start to feel better. ? Use any implants or pessary as told by your health care provider. ? If needed, wear pads to absorb urine leakage. ? Keep a log to track how much and when you drink, and when you need to urinate. This will help your health care (more content not included)...[facility]07-03-2024 NotePrior authorization was completed for patient 01/20/2024, for medication Abrisentan. The request has been approved from 01/28/2024-07/30/2024. Patient must that this is considered a Specialty medication, therefore patients plan requires that the medication be ordered through [facility] Phone . Will contact patient and inform her that this medication has been approved and that the specialty pharmacy will need to be contacted.[facility]06-27-2024 NoteSpoke to regarding PA and that it is excluded from patients plan. Dr. Pruitt asked to send in Ambrisentan 5 mg was [facility] NoteReceived update on Opsumit for this patient. Medication is not able to be approved because the medication is excluded from patients pharmacy benefit plan. However Generic Ambrisentan or Generic Bosentan are on the Patient pharmacy benefit plan. Because the denial is based on on the patient's pharmacy beneifit plan and not medical necessity , an appeal will not be available.[facility]05-29-2024 NotePrior Authorization has been completed for this patient for the medication Opsumit 10 mg. Determination is pending will update once an outcome has been receivedUnThe [facility]05-22-2024 NotePatient: Sylvia Moon Procedure Information Date/Time: 12/18/23 0900 Procedure: Right heart cath Location: [facility] MORTUARY OPERATIONS MANAGER 2 BIPLANE / [facility] (Cath) Providers: Maximilian Taveras MD [...] discussed with fellow and attending. Additional Equipment RequestsUnThe [facility]05-08-2024 Note Attestation signed by Flory Pruitt MD at [...] (CMS/HCC) Chest pain Coronary artery disease involving [place] coronary artery of [place] heart without angina pectoris Deficiency anemia Essential [...] on physical exam H (more content not included)...[facility]02-06-2024 NoteSubjective Sylvia Moon is a 58 y.o. year [...] (CMS/HCC) Chest pain Coronary artery disease involving [place] coronary artery of [place] heart without angina pectoris Deficiency anemia Essential [...] to provide her medication. I asked my gynecological assistant and MA, Feli, to call [facility] special pharmacy and send notes medication by mail. We will focus on her getting her medication. 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) [place] Other Evaluation note* Diagnosis Urinary urgency Urgency of urination documented in this encounter [facility] [facility] Phone: evaluation note* Diagnosis Pulmonary fibrosis (HCC) Postinflammatory pulmonary fibrosis documented in this encounter [facility] [facility] Phone: evaluation noteNo assessment information available [facility] Work Phone: Evaluation note* Diagnosis Onset Date Resolution Status History of tobacco abuse acu te 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 acute Pulmonary fibrosis, unspecified acute 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 acute Scleroderma acute [facility] Work Phone: [facility] general Narrative - Reported* Type Description Date Medical History scleroderma Medical History Hypertension Medical History pulmonary hypertension Medical History Esophageal reflux Surgical History D&C 2000 Surgical History C section 2001 Surgical History tubal ligation 2001 [place] Other Summary Purpose Family History Relationship Condition Age at Onset Recorded Date/T saleem Not Specified Diabetes mellitus Unknown brother Malignant neoplasm Unknown father Hypertension Unknown Not Specified Hypertension Unknown Advance Directives Documents on File Type Date Recorded Patient [employer] Observ[employer] Chief Scientist Expl anation Advance Directives and Living Will Power of Banking Manager Documents on File Type Date Recorded Patient Earth Observations Chief Scientist Expl anation ACP-Advance Directive ACP-Power of Banking Manager Documents on File Type Date Recorded Patient Earth Observations Chief Scientist Expl anation ACP-Advance Directive ACP-Power of Banking Manager Advance Directive Response Recorded Date/ Time Advance [...] sent through Care Everywhere. * Head Injury (Wallisian) documented in this encounter Chief Complaint and [...] section and content) DATE CREATED AUTHOR 01/31/2018 [facility] DATE CREATED AUTHOR AUTHOR'S ORGANIZ ATION 09/01/[address] [facility] DATE CREATED AUTHOR AUTHOR'S ORGANIZ ATION 11/12/2022 [facility] DATE CREATED AUTHOR AUTHOR'S ORGANIZ ATION 12/16/2023 [facility] DATE CREATED AUTHOR AUTHOR'S ORGANIZ ATION 07/17/2024 [facility] DATE CREATED AUTHOR AUTHOR'S ORGANIZ ATION 08/17/2024 [facility] DATE CREATED AUTHOR AUTHOR'S ORGANIZ ATION 09/01/2024 [facility] EPIC DATE CREATED AUTHOR AUTHOR'S ORGANIZ ATION 09/04/2024 [facility] Reason for Visit (unrecogniz ed section and content) Reason Comments Fall pt states she was wa lking in the hospital parking lot just [place] and 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 Pt denies LOC, states I saw stars Specialty Diagnoses / Procedures Referred By Suki chaudhari Referred To Contact Radiology Diagnoses Pulmonary fibrosis (HCC) Procedures CT CHEST HIGH RESOLUTION CT CHEST WO CONTRAST Candi George MD Referral ID Status Reason Start Date Expiration Date Visits Re quested Visits Authorized [id number] Closed 11/06/2021 12/05/2021 1 1 Reason Comments Annual Exam Care Teams (unrecognized sec tion and content) Compress Machine Operator Relationship Specialty Start Date End Date Josefa Martinez MD [address] [id number] PCP - General 10/03/12 Compress Machine Operator Relationship Specialty Start Date End Date Josefa Martinez MD [address] [place] [address] PCP - General 10/03/12 Compress Machine Operator Relationship Specialty Start Date End Date Josefa Martinez MD [address] [place] [address] PCP - General 10/03/12 Team Status: Inactive [...] December 16, 2023 End: December 16, 2023 Compress Machine Operator Relationship Specialty Start Date End Date Josefa Martinez MD [address] [facility] [address] [place] [address] PCP - General Family Medicine 12/04/22 Compress Machine Operator Relationship Specialty Start Date End Date Josefa Martinez MD [address] [facility] [address] [place] [address] PCP - General Family Medicine 12/04/22 Compress Machine Operator Relationship Specialty Start Date End Date Josefa Martinez MD [address] [facility] [address] [place] [address] PCP - General Family Medicine 12/04/22 Compress Machine Operator Relationship Specialty Start Date End Date Josefa Martinez MD [address] [facility] [address] [place] [address] PCP - General Family Medicine 12/04/22 Compress Machine Operator Relationship Specialty Start Date End Date Josefa Martinez MD [address] [facility] [address] [place] [address] PCP - General Family Medicine 12/04/22 Goals [...] BE BASED ON THE PRIMARY CLINICAL RECORDS. [facility], [facility]. provides no warranty or guarantee of the accuracy or completeness of information in this document.
[2024-09-22 12:21] LABS: Erythrocyte Sedimentation Rate 9 mm/hr (<=30)
== END 2024-09-22 11:48 | disposition home or self-care (01) ==
PROVIDERS: PCP Family Medicine; Visit Provider Internal Medicine Rheumatology
DX: M05.79 Rheumatoid arthritis with rheumatoid factor of multiple sites without organ or systems involvement (principal); Z79.899 Other long term (current) drug therapy
CPT/HCPCS: 36415; 85025; 85652

== ENCOUNTER 2024-11-23 07:38 | Outpatient (OUT) | payer OTHER, SELFPAY ==
[2024-11-23 08:01] LABS: Basophils Absolute Auto 0.1 10^3/uL (0.0-0.1); Basophils Percent Auto 0.7 % (0.2-2.0); Eosinophils Absolute Auto 0.3 10^3/uL (0.0-0.7); Hemoglobin 12.9 g/dL (12.0-16.0); Immature Granulocytes Abs Auto 0.02 10^3/uL (0.00-0.03); Immature Granulocytes Pct Auto 0.2 % (0.0-0.5); Lymphocytes Absolute Auto 2.8 10^3/uL (1.2-3.8); Lymphocytes Percent Auto 31.6 % (20.5-60.0); Mean Corpuscular HGB Conc 33.1 g/dL (29.9-35.2); Mean Corpuscular Hemoglobin 28.8 pg (26.7-34.0); Mean Corpuscular Volume 87.1 fL (81.0-99.0); Mean Platelet Volume 9.6 fL (9.5-13.5); Monocytes Absolute Auto 0.7 10^3/uL (0.3-0.8); Monocytes Percent Auto 7.4 % (1.7-12.0); Neutrophils Absolute Auto 5.1 10^3/uL (1.4-6.5); Neutrophils Percent Auto 57.1 % (43.0-75.0); Platelet Count 264 10^3/uL (150-450); Red Blood Count 4.48 10^6/uL (4.20-5.40); Red Cell Distribution Width 12.7 % (11.0-15.0); White Blood Count 8.9 10^3/uL (4.0-11.0)
[2024-11-23 09:02] LABS: Alanine Aminotransferase 12 U/L (14-59); Albumin Globulin Ratio 1.1; Albumin Level 3.7 g/dL (3.4-5.0); Alkaline Phosphatase 133 U/L (46-116); Aspartate Amino Transferase 20 U/L (15-37); Bilirubin Direct 0.1 mg/dL (0.0-0.2); Bilirubin Total 0.2 mg/dL (0.2-1.0); Estimated GFR (African America 45 (>=60 mL/min/1.73m^2); Estimated GFR (Non-African Ame 37 (>=60 mL/min/1.73m^2); Globulin 3.4 g/dL; Total Protein 7.1 g/dL (6.4-8.2)
[2024-11-23 11:51] LABS: Erythrocyte Sedimentation Rate 9 mm/hr (<=30)
== END 2024-11-23 07:39 | disposition home or self-care (01) ==
LOC: LAB 07:39
PROVIDERS: PCP Family Medicine; Visit Provider Internal Medicine Rheumatology
DX: M05.79 Rheumatoid arthritis with rheumatoid factor of multiple sites without organ or systems involvement (principal); Z79.899 Other long term (current) drug therapy
CPT/HCPCS: 36415; 80076; 82565; 85025; 85652

== ENCOUNTER 2024-12-24 08:15 | Outpatient (OUT) | payer OTHER, SELFPAY ==
--- NOTE | 2024-12-24 08:19 | CT_ITS ---
The [address] [address] Patient Name: SYLVIA MCCRARY MRN: [id number] date: 1965 Sex: F Assigned Patient Location: CT Current Patient Location: CT Accession/Order Number: [id number] Exam Date: 12/24/2024 09:06 Report Date: 12/24/2024 09:14 At the request of: NON-STAFF PHYSICIAN Procedure: CT chest high res HIGH-RESOLUTION CT CHEST WITHOUT CONTRAST COMPARISON: 11/28/2020 CLINICAL DATA: History of pulmonary hypertension, pulmonary fibrosis and scleroderma. Spiral axial unenhanced images were obtained to the chest. Images were reconstructed at 1 mm sections at 10 mm increments. High-resolution imaging was also performed in prone position. Images were reviewed using both narrow and wide window settings. This CT exam was performed using one or more following dose reduction techniques: Automated exposure control, adjustment of the mA and/or kV according to patient size, or use of iterative reconstruction technique. The heart is top normal in size. There is no pericardial effusion. Coronary disease is seen. No aortic aneurysm is noted. There are no enlarged lymph nodes. A tiny hiatal hernia is present. Endplate spurring is visualized at the spine. There is minor atelectasis and/or scarring. No focal consolidation is noted. No obstructive lung disease is seen. Mild interstitial thickening is again seen at the lower lungs, left slightly greater than right. No pneumothorax is seen. There is a tiny calcified granuloma at the right posterior costophrenic angle. Limited imaging through the upper abdomen shows small suspected hepatic cysts. CT/CT chest high res IMPRESSION: SIMILAR MILD FIBROTIC APPEARING CHANGES AT THE LOWER LUNGS. NO ACUTE ABNORMALITY. Impression dictated by: Kindra Winter M.D. 12/24/2024 9:14 AM Dictation Location: [place] [address] Electronically authenticated by: [id number] Y Date: 12/24/2024 09:14
--- OUTSIDE RECORDS SUMMARY | 2024-12-24 08:30 | XMS_ITS | CCD ---
Author Organization [facility] Providers Care Sizing Machine Operator Name Role Phone BROWN, CHRISTOPHER Unavailable Unavailable BROWN, CHRISTOPHER Unavailable Unavailable MICHELLE, RUGEN Unavailable Unavailable BROWN, CHRISTOPHER Unavailable Unavailable SKIE, OREN Unavailable Unavailable SKIE, OREN Unavailable Unavailable MICHELLE, RUGEN Unavailable Unavailable MICHELLE, RUGEN Unavailable Unavailable AK Unavailable Unavailable SKIE, OREN Unavailable Unavailable AK Unavailable Unavailable PITRODA, TENNILLE Unavailable Unavailable PHYSICIAN, DEFAULT Unavailable Unavailable PHYSICIAN, DEFAULT Unavailable Unavailable MICHELLE, YANIVEN Unavailable Unavailable PHYSICIAN, DEFAULT Unavailable Unavailable PHYSICIAN, DEFAULT Unavailable Unavailable YANIV MARTINEZEN Unavailable Unavailable Josefa Martinez Primary Care Provider Josefa Martinez Primary Care Provider [phone] Josefa Martinez Primary Care Provider Josefa Martinez MD Primary Care Provider Josefa Martinez MD Primary Care Provider Candi George Unavailable Josefa Martinez MD Primary Care Provider Josefa Martinez MD Primary Care Provider MD Josefa Martinez Primary Care Provider MD Josefa Martinez Attending Provider [phone] MIGUEL Benitez Attending Provider Josefa Martinez Primary Care Unavailable Giacomo Benitez Attending Unavailable Giacomo Benitez Admitting Unavailable Josefa Martinez Admitting Unavailable Josefa Martinez Attending Unavailable Josefa Martinez Primary Care Unavailable DR VINICIUS BULLOCK Admitting Unavailable DR VINICIUS BULLOCK Attending Unavailable DR JOSEFA MARTINEZ Primary Care Unavailable MENG DR COLVIN Consulting Unavailable HALMAJO, DR COLVIN Admitting Unavailable HALMAJO, DR COLVIN Attending Unavailable MICHELLE, DR RIVERO Primary Care Unavailable MENG, DR COLVIN Consulting Unavailable BOB HARDING Referring Unavailfabienne MARTINEZ, JOSEFA Chapman Primary Care Unavailable Josefa Martinez MD Primary Care Provider Frank JOE Attending Unavailable Frank JOE Attending Unavailable Frank JOE Attending Unavailable JOSEFA MARTINEZ Attending Unavailable EDMOND, FLORY Do Attending Unavailable MAXIMILIAN TAVERAS Admitting Unavailable MOUKAMAXIMILIAN ABRAMS Attending Unavailable EDMOND, SAMER J Referring Unavailable [...] [Augmentin] Drug Allergy 1 [facility] Repository (20 sources) Amoxicillin-Pot Clavulanate; Translations: [AMOXICILLIN-PO T CLAVULANATE] Propensity to adverse reactions to drug 3 [place], [place] (1 source) Amoxicillin / Clavulanate Drug Allergy [facility] [employer] Other (11 sources) Amoxicillin; Translations: [amoxicillin] Drug Allergy 4 [facility] (1 source) Clavulanate Drug Allergy 4 [facility] Medications Current Medications Medication Drug Class(es) Dates Sig (Normalized) Sig (Original) ambrisentan 5 mg oral tablet (6 sources) Endothelin Receptor Antagonist Start: 01-31-2024 take 1 tablet by mouth in the morning ambrisentan (Letairis) 5 MG tablet Take 5 mg by mouth in the morning. 01/31/2024 Active aspirin 81 mg delayed release oral tablet (20 sources) Platelet Aggregation Inhibitor, Nonsteroidal Anti-inflammatory Drug Start: 12-16-2023 Aspirin (Clover Low Dose Aspirin) 81 mg tablet,delayed release (NEVILLEEC) Active 81 MG PO Daily December 16, 2023 12:00am take 1 tablet by mouth once azra y aspirin 81 MG tablet Take 81 mg by mouth daily. 0 Active atorvastatin 40 mg oral tablet (9 sources) HMG-CoA Reductase Inhibitor Start: 10-05-2024 take 1 tablet by mouth in the morning atorvastatin (Lipitor) 40 MG tablet Indications: Hyperlipidemia, unspecified hyperlipidemia type (CMS/HCC) TAKE 1 TABLET BY MOUTH IN THE MORNING 100 tablet 3 10/05/2024 Active Start: 08-12-2023 End: 09-15-2024 take 1 tablet by mouth in the morning atorvastatin (Lipitor) 40 MG tablet Indications: Hyperlipidemia, unspecified hyperlipidemia type (CMS/HCC) TAKE 1 TABLET BY MOUTH IN THE MORNING 30 tablet 09/07/2024 Active Clover Low Strength 81 MG (1 source) take 1 tablet by mouth once daily carvedilol 6.25 mg oral tablet (20 sources) alpha-Adrenergic Joie, beta-Adrenergic Jioe Start: 11-13-2023 take 1 tablet by mouth [...] 0 Active celecoxib 200 mg oral capsule (9 sources) Nonsteroidal Anti-inflammatory Drug Start: 11-20-2023 take 1 capsule by mouth once daily at mealtime celecoxib (CeleBREX) 200 MG capsule Indications: Rheumatoid arthritis in remission (CMS/HCC) TAKE 1 CAPSULE BY MOUTH ONCE DAILY WITH FOOD FOR 90 DAYS 100 capsule 3 11/20/2023 Active cholecalciferol 0.125 mg oral tablet (6 sources) Vitamin D take 1 tablet by mouth in the morning cholecalciferol (Vitamin D-3) 125 MCG (5000 UT) tablet Take 5,000 Units by mouth in the morning. Active ferrous sulfate 325 mg oral tablet (20 sources) take 1 tablet by mouth at mealtime ferrous sulfate 325 (65 Fe) MG tablet Take 325 mg by mouth in the morning. Take with meals. Active furosemide 20 mg oral tablet (9 sources) Loop Diuretic Start: 11-20-2023 take 1 [...] by mouth every twe nty-four hours lisinopril 10 mg oral tablet (20 sources) Angiotensin Converting Enzyme Inhibitor Start: 10-08-2024 take 1 tablet by mouth once daily lisinopril 10 MG tablet Indications: Benign essential hypertension (CMS/HCC) Take 1 tablet by mouth once daily 100 tablet 3 10/08/2024 Active Start: 12-16-2023 take 1 tablet by jovana th once daily Lisinopril Active 1 TAB PO [...] Taking; Provider: Ariel Christopher ( ) NIFEdipine 60 mg osmotic 24 hr extended release oral tablet (20 sources) Dihydropyridine Calcium Channel Joie Start: 10-30-2024 take 1 tablet by mouth once daily NIFEdipine XL (Procardia XL) 60 MG 24 hr tablet Indications: Benign essential hypertension (CMS/HCC) Take 1 tablet by mouth once daily 100 tablet 3 10/30/2024 Active Start: 12-16-2023 take 10 mg by mouth once Nifed ipine Active 10 MG PO Once December 16, [...] sulfaSALAzine 500 mg delayed release oral tablet (9 sources) Aminosalicylate Start: 023 take 2 tablets [...] tartrate 4 mg extended release oral capsule (9 sources) Cholinergic Muscarinic Antagonist Start: 06-21-2023 take [...] Documented Da te Episodic/Chronic Acquired foot deformities (10 sources) Hallux valgus (acquired), left foot; Translations: [Acquired hallux valgus] Onset: 07-25-2022 08-02-2023 Chronic Calculus of urinary tract (1 source) Kidney stone; Translations: [Kidney stone] Episodic Cardiac dysrhythmias (11 sources) Atrial fibrillation; Translations: [Unspecified atrial fibrillation] Onset: 02-13-2013 08-06-2023 Chronic Chronic kidney disease (18 sources) Chronic kidney disease stage 3A ; Translations: [Stage 3a chronic kidney disease (HCC)] Onset: 08-02-2023 08-02-2023 Chronic Chronic ulcer of skin (11 sources) Non-pressure chronic ulcer of other part of left foot with fat layer exposed; Translations: [Ulcer of other part of foot] Onset: 08-02-2023 08-02-2023 Chronic Coronary atherosclerosis and other heart disease (18 sources) Coronary arteriosclerosis; Translations: [Atherosclerotic heart disease of [place] coronary artery without angina pectoris] Onset: 02-13-2013 08-06-2023 Chronic Disorders of lipid metabolism (11 sources) Hyperlipidemia; Translations: [Hyperlipidemia, unspecified] Onset: 08-27-2011 [...] urination] Episodic Gout and other crystal arthropathies (9 sources) Primary gout; Translations: [Idiopathic gout, unspecified site] Onset: 08-02-2023 08-02-2023 Chronic Osteoarthritis (5 sources) Primary osteoarthritis, left hand; Translations: [Secondary osteoarthritis, right hand] Onset: 02-13-2017 Chronic Osteoporosis (9 sources) Senile osteoporosis; Translations: [Age-related osteoporosis without current pathological fracture] Onset: 08-02-2023 08-02-2023 Chronic Other acquired deformities (9 sources) Contracture of joint of left ankle; Translations: [Contracture, left ankle] Onset: 08-02-2023 08-02-2023 Chronic Other aftercare (1 source) Other snf (current) drug therapy; Translations: [OTH ANNUAL GIVING DIRECTOR CURRENT DRUG THERAPY] Onset: 11-12-2022 Episodic Other circulatory disease (9 sources) Raynaud's disease; Translations: [Raynaud's syndrome without gangrene] Onset: 08-02-2023 08-02-2023 Chronic Other connective tissue disease (1 source) Metatarsalgia, right foot; Translations: [Metatarsalgia, right foot] Onset: 07-25-2022 Episodic Other lower respiratory disease (14 sources) Fibrosis of lung; Translations: [Pulmonary fibrosis, [...] disease] 12-16-2023 Chronic Other lower respiratory disease (13 sources) Interstitial lung disease; Translations: [Interstitial pulmonary disease, unspecified] Onset: 08-02-2023 08-02-2023 Chronic Other lower respiratory disease (2 sources) Dyspnea, unspecified; Translations: [Dyspnea, unspecified] Onset: 11-06-2024 Episodic Other nervous system disorders (9 sources) Disorder of muscle; Translations: [Myopathy, unspecified] Onset: 08-08-2023 08-08-2023 Chronic Other non-traumatic joint disorders (9 sources) Arthropathy; Translations: [Arthropathy, unspecified] Onset: 03-26-2017 [...] Documented Date Episodic/Chronic Deficiency and other anemia (11 sources) Deficiency anemias; Translations: [Nutritional anemia, unspecified] Onset: 08-28-2011 08-06-2023 Episodic Gastritis and duodenitis (9 sources) Bile-induced gastritis; Translations: [Other gastritis without bleeding] Onset: 08-02-2023 08-02-2023 Episodic Joint disorders and dislocations; trauma-related (4 sources) Dislocation of interphalangeal joint of left thumb, initial encounter; Translations: [Recurrent dislocation, left finger] Onset: 02-13-2017 Episodic Nonspecific chest pain (9 sources) Chest pain; Translations: [Chest pain, unspecified] Onset: 02-13-2013 08-06-2023 Episodic Other aftercare (1 source) longterm (current) use of aspirin; Translations: [ANNUAL GIVING DIRECTOR (CURRENT) USE OF ASPIRIN] Onset: 04-15-2017 Episodic Other connective tissue disease (9 sources) Muscle pain; Translations: [Myalgia, unspecified site] Onset: 08-08-2023 08-08-2023 Episodic Other diseases of veins and lymphatics (9 sources) Peripheral venous insufficiency; Translations: [Venous insufficiency (chronic) (peripheral)] Onset: 08-02-2023 08-02-2023 Episodic Other lower respiratory disease (9 sources) Dyspnea; Translations: [Shortness of breath] Onset: 09-21-2022 08-06-2023 Episodic Results Test Name Value Interpretation Reference Range Facility ALL CBC WITH AUTO DIFFon BASOPHILS ABSOLUTE AUTO 0.1 [facility] Basophils/100 WBC (Bld) 0.7 % 0.2 - 2.0 % [facility] Eosinophils/100 WBC (Bld) 3 % 0.9 - 7.0 % [facility] Erythrocyte distribution width (RBC) [Ratio] 12.7 % 11.0 - 15.0 % [facility] Hematocrit (Bld) [Volume fraction] 39 % 36.0 - 48.0 % [facility] Hemoglobin (Bld) [Mass/Vol] 12.9 g/dL 12.0 - 16.0 g/dL [facility] IMMATURE GRANULOCYTES ABS AUTO 0.02 [facility] Immature granulocytes/100 WBC (Bld) 0.2 % 0.0 - 0.5 % [facility] LYMPHOCYTES ABSOLUTE AUTO 2.8 [facility] Lymphocytes/100 WBC (Bld) 31.6 % 20.5 - 60.0 % [facility] MCH (RBC) [Entitic mass] 28.8 pg 26.7 - 34.0 pg [facility] MCHC (RBC) [Mass/Vol] 33.1 g/dL 29.9 - 35.2 g/dL [facility] MCV (RBC) [Entitic vol] 87.1 fL 81.0 - 99.0 fL [facility] MONOCYTES ABSOLUTE AUTO 0.7 [facility] Monocytes/100 WBC (Bld) 7.4 % 1.7 - 12.0 % [facility] NEUTROPHILS ABSOLUTE AUTO 5.1 [facility] Neutrophils/100 WBC (Bld) 57.1 % 43.0 - 75.0 % [facility] Platelet mean volume (Bld) [Entitic vol] 9.6 fL 9.5 - 13.5 fL [facility] TBH EO # 0.3 [facility] PLT 264 [facility] TB RBC 4.48 [facility] TB WBC 8.9 [facility] Abstracton 11-06-2024 Abstract [id number] Sylvia Moon 1965 F Date Provider Department Center 11/06/2024 [id number] BUSTOS KEVIN Tristan. Family History Problem Relation Age of Onset Hypertension Mother Hypertension Father Family Status - Relation Status Age at Mother Father Normal [facility] Office Visiton 11-06-2024 Follow-up visit [id number] Paolo Moon1965 F Date Provider Department Center 11/06/2024 325-FLORY PRUITT KEVIN Tristan. Family History Problem Relation Age of Onset Hypertension Mother Hypertension Father Family Status - Relation Status Age at Mother Father Level of Service:80572 [place] OFFICE/OUTPATIENT ESTABLISHED MOD MDM 30 MIN (GC) [facility] ALL CBC WITH AUTO DIFFon BASOPHILS ABSOLUTE AUTO 0.1 [facility] Basophils/100 WBC (Bld) 1 % 0.2 - 2.0 % [facility] Eosinophils/100 WBC (Bld) 3.9 % 0.9 - 7.0 % [facility] Erythrocyte distribution width (RBC) [Ratio] 13.8 % 11.0 - 15.0 % [facility] Hematocrit (Bld) [Volume fraction] 38 % 36.0 - 48.0 % [facility] Hemoglobin (Bld) [Mass/Vol] 12.5 g/dL 12.0 - 16.0 g/dL [facility] IMMATURE GRANULOCYTES ABS AUTO 0.02 [facility] Immature granulocytes/100 WBC (Bld) 0.2 % 0.0 - 0.5 % [facility] LYMPHOCYTES ABSOLUTE AUTO 2.7 [facility] Lymphocytes/100 WBC (Bld) 32.4 % 20.5 - 60.0 % [facility] MCH (RBC) [Entitic mass] 28.9 pg 26.7 - 34.0 pg [facility] MCHC (RBC) [Mass/Vol] 32.9 g/dL 29.9 - 35.2 g/dL [facility] MCV (RBC) [Entitic vol] 88 fL 81.0 - 99.0 fL [facility] MONOCYTES ABSOLUTE AUTO 0.7 [facility] Monocytes/100 WBC (Bld) 8.8 % 1.7 - 12.0 % [facility] NEUTROPHILS ABSOLUTE AUTO 4.5 [facility] Neutrophils/100 WBC (Bld) 53.7 % 43.0 - 75.0 % [facility] Platelet mean volume (Bld) [Entitic vol] 10 fL 9.5 - 13.5 fL [facility] TBH EO # 0.3 [facility] TB PLT 260 [facility] RBC 4.32 [facility] WBC 8.4 [facility] Albumin [Mass/Vol] 3.8 g/dL 3.4 - 5.0 g/dL [facility] ALBUMIN GLOBULIN RATIO 1.2 [facility] ALP [Catalytic activity/Vol] 112 U/L 46 - 116 U/L [facility] ALT [Catalytic activity/Vol] 17 U/L 14 - 59 U/L [facility] AST [Catalytic activity/Vol] 23 U/L 15 - 37 U/L [facility] Bilirubin [Mass/Vol] 0.2 mg/dL 0.2 - 1 .0 mg/dL [facility] Bilirubin.indirect [Mass/Vol] 0.1 mg/dL 0.0 - 0.2 mg/dL [facility] Globulin (S) [Mass/Vol] 3.1 g/dL [facility] Protein [Mass/Vol] 6.9 g/dL 6.4 - 8.2 g/dL [facility] No Panel Informationon 09-21 [facility] CREATININEon 09-21-2024 Creatinine [Mass/Vol] 1.3 mg/dL High 0.55 - 1.02 mg/dL [facility] GFR/1.73 sq M.predicted CKD-EPI (S/P/Bld) [Vol rate/Area] 51 Low >=60 mL/min/1.73 m 2 [facility] Interpretation and review of laboratory results Abnormal [facility] EGFR-NON AF BRITISH 42 Low >=60 mL/min/1.73 m 2 [facility] MM TOMOSYNTHESIS SCREENING B Ion 09-11-2024 [place] [address] Mammography Report Signed Patient: SYLVIA BASS MR#: [id number] : 1965 Acct:[id number] Age/Sex: 59 / F ADM Date: 09/09/24 Loc: MAMMO Attending Dr: JOSEFA MARTINEZ Ordering Physician: JOSEFA MARTINEZ Results: Date of Service: 09/09/24 Follow Up: Procedure(s): MM tomosynthesis screening BI Accession Number(s): [id number] cc: MICHELLEYANIV MurryAMARJIT Patient Name: SYLVIA BASS MR#: [id number] : 1965 Exam Date: 09/09/2024 Ordering Doctor: [...] colon cancer at age 39. LOCATION: [facility] BREAST COMPOSITION: The breasts are heterogeneously [...] Signed By: 09/11/24 1059 DD/ 1058 TD/TT: Data Systems Manager: [facility] Radiology, Radiologist, MD - 09/11/2024 [place] [address] Mammography Report Signed Patient: SYLVIA BASS MR#: [id number] : 1965 Acct:[id number] Age/Sex: 59 / F ADM Date: 09/09/24 Loc: MAMMO Attending Dr: JOSEFA MARTINEZ Ordering Physician: JOSEFA MARTINEZ Results: Date of Service: 09/09/24 Follow Up: Procedure(s): MM tomosynthesis screening BI Accession Number(s): [id number] cc: MICHELLEJOSEAF Murry Patient Name: SYLVIA BASS MR#: [id number] : 1965 Exam Date: 09/09/2024 Ordering Doctor: [...] colon cancer at age 39. LOCATION: [facility] BREAST COMPOSITION: The breasts are heterogeneously [...] Signed By: 09/11/24 1059 DD/ 1058 TD/TT: Data Systems Manager: [facility] Radiology Study observation (narrative) [facility] MM TOMOSYNTHESIS SCREENING B IOrdered By: Radiologist Radiology on 09-11-2024 [facility] Work Phone: [employer]PREH[employer]AB[employer]ANE Tony 09-01-2024 Albumin [Mass/Vol] 4.6 g/dL Normal 3.6-5.1 [facility] Comment on above: Performed By: #### 7 600, 80486 #### [facility] of [address], [address] [place] [address] Consumer Studies Professor: Jomar Pham MD Albumin/Globulin [Mass ratio] 1.9 {ratio} Normal 1.0-2.5 [facility] Comment on above: Performed By: #### 7 600, [id number] #### [facility] of [address], [address] [place] [address] Consumer Studies Professor: Jomar Pham MD ALP [Catalytic activity/Vol] 97 U/L Normal 37-153 [facility] Comment on above: Performed By: #### 7 600, 42401 #### [facility] of [address], [address] [place] [address] Consumer Studies Professor: Jomar Pham MD ALT [Catalytic activity/Vol] 11 U/L Normal 6-29 [facility] Comment on above: Performed By: #### 7 600, 33326 #### [facility] of [address], [address] [place] [address] Consumer Studies Professor: Jomar Pham MD AST [Catalytic activity/Vol] 22 U/L Normal 10-35 [facility] Comment on above: Performed By: #### 7 600, 60788 #### [facility] of [place] [address] Consumer Studies Professor: Jomar Pham MD Bilirubin [Mass/Vol] 0.4 mg/dL Normal 0.2-1.2 [facility] Comment on above: Performed By: #### 7 600, 88765 #### [facility] of [address], [address] [place] [address] Consumer Studies Professor: Jomar Pham MD BUN/CREATININE RATIO SEE NOTE: Normal 6-22 [facility] Comment on above: Result Comment: Not Reported: BUN and Creatinine are within reference range. Performed By: #### 7 600, 64498 #### [facility] of [address], [address] [place] [address] Consumer Studies Professor: Jomar Pham MD Calcium [Mass/Vol] 9.8 mg/dL Normal 8.6-10.4 [facility] Comment on above: Performed By: #### 7 600, 61582 #### [facility] [address], [address] [place] [address] Consumer Studies Professor: Jomar Pham MD Chloride [Moles/Vol] 105 mmol/L Normal 98-110 [facility] Comment on above: Performed By: #### 7 600, 38894 #### [facility] [place] [address] Consumer Studies Professor: Jomar Pham MD CO2 [Moles/Vol] 25 mmol/L Normal 20-32 [facility] Comment on above: Performed By: #### 7 600, 82430 #### [facility] of [place] [address] Consumer Studies Professor: Jomar Pham MD Creatinine [Mass/Vol] 0.88 mg/dL Normal 0.50-1.05 [facility] Comment on above: Performed By: #### 7 600, 53803 #### [facility] of [place] [address] Consumer Studies Professor: Jomar Pham MD GFR/1.73 sq M.predicted among non-blacks MDRD (S/P/Bld) [Vol rate/Area] 75 mL/min/{1.73_m2} Normal > OR = 60 [facility] Comment on above: Performed By: #### 7 600, 04177 #### [facility] of [place] [address] Consumer Studies Professor: Jomar Pham MD Globulin (S) [Mass/Vol] 2.4 g/dL Normal 1.9-3.7 [facility] Comment on above: Performed By: #### 7 600, 95441 #### [facility] [place] [address] Consumer Studies Professor: Jomar Pham MD Glucose [Mass/Vol] 82 mg/dL Normal 65-99 [facility] Comment on above: Result Comment: Fasting reference interval Performed By: #### 7 600, 80630 #### [facility] [address], [address] [place] [address] Consumer Studies Professor: Jomar Pham MD Potassium [Moles/Vol] 3.4 mmol/L Low 3.5-5.[address] [facility] Comment on above: Performed By: #### 7 600, 21441 #### [facility] [place] [address] Consumer Studies Professor: Jomar Pham MD Protein [Mass/Vol] 7.0 g/dL Normal 6.1-8.1 [facility] Comment on above: Performed By: #### 7 600, 35454 #### [facility] [place] [address] Consumer Studies Professor: Jomar Pham MD Sodium [Moles/Vol] 141 mmol/L Normal 135-146 [facility] Comment on above: Performed By: #### 7 600, 90404 #### [facility] [place] [address] Consumer Studies Professor: Jomar Pham MD Urea nitrogen [Mass/Vol] 17 mg/dL Normal 7-25 [facility] Comment on above: Performed By: #### 7 600, 26332 #### [facility] [place] [address] Consumer Studies Professor: Jomar Pham MD LIPID PANEL, STANDARD Cholesterol [Mass/Vol] 174 mg/dL Normal <200 [facility] Comment on above: Order Comment: FASTI NG:YES FASTING: YES Performed By: #### 7 600, 37532 #### [facility] of [facility] [address], [address] [place] [address] Consumer Studies Professor: Jomar Pham MD Cholesterol in HDL [Mass/Vol] 80 mg/dL Normal > OR = 50 [facility] Comment on above: Order Comment: FASTI NG:YES FASTING: YES Performed By: #### 7 600, 55330 #### [facility] [address], [address] [place] [address] Consumer Studies Professor: Jomar Pham MD Cholesterol in LDL [Mass/Vol] [...] LDL-C. Oren JEAN-BAPTISTE et al. [place]. 2013;310(19): 0203-1485 (http://education.re3D.[employer]faq/HAW157) Performed By: #### 7 600, 54598 #### [facility] [address], [address] [place] [address] Consumer Studies Professor: Jomar Pham MD Cholesterol.total/Leigh sterol in HDL [Mass ratio] 2.2 {ratio} Normal <5.0 [facility] Comment on above: Order Comment: FASTI NG:YES FASTING: YES Performed By: #### 7 600, 79267 #### [facility] [address], [address] [place] [address] Consumer Studies Professor: Jomar Pahm MD NON HDL CHOLESTEROL 94 mg/dL (calc) Normal <130 [facility] Comment on above: Order Comment: FASTI NG:YES FASTING: YES Result Comment: For patients with diabetes plus 1 major ASCVD risk factor, treating to a non-HDL-C goal of <100 mg/dL (LDL-C of <70 mg/dL) is considered a therapeutic option. Performed By: #### 7 600, 33261 #### [facility] [address], [address] [place] [address] Consumer Studies Professor: Jomar Pham MD Triglyceride [Mass/Vol] 81 mg/dL Normal <150 [facility] Comment on above: Order Comment: FASTI NG:YES FASTING: YES Performed By: #### 7 600, 83245 #### [facility] [address], [address] [place] [address] Consumer Studies Professor: Jomar Pham MD Ambulatory Visit Summaryon 0 [...] Follow-Up Appointments Saturday2025 8:45 AM EST With: JUNIOR JIMENEZ, Frank Lea Where: [facility] [address] You Need to Schedule the Following Appointments Follow Up with JUNIOR JIMENEZ, REYES Connor When: Where: [address] [place] [address]- Medications What How Much When Instructions Changed tolterodine (tolterodine 4 mg Cap-ER) 1 Capsules By Mouth As Directed Take 2 tabs in the AM and 1 tab in the evening. Pickup at [facility] Unchanged aspirin (aspirin [...] physician if questions or concerns Pharmacy Information [facility]: [address] [place] [address] [phone] Allergies Augmentin (Rash) amoxicillin (Rash) Problems Ongoing [...] A sp (more content not included)... Normal [facility] Urology Office/Clinic Noteon 08-14-2024 Urology Office/Clinic Note [...] When Contact Information JUNIOR JIMENEZ, Frank Lea, [address] [address]- Additional Instructions: 1 year Patient Education Overactive [...] vaccine 08/16 (more content not included)... Normal [facility] Comment on above: Result Comment: Elec tronically Signed By: Frank JOE MD.br\Date and Time Signed: 08/14/24 09:01 EST\.br\Electronically Co-Signed By: Kayli Garrido.br\Date and Time Co-Signed: 08/14/24 09:00 EST ALL CBC WITH AUTO DIFFon BASOPHILS ABSOLUTE AUTO 0.1 N [facility] Basophils/100 WBC (Bld) 0.9 % 0.2 - 2.0 % [facility] Eosinophils/100 WBC (Bld) 3.9 % 0.9 - 7.0 % [facility] Erythrocyte distribution width (RBC) [Ratio] 13 % 11.0 - 15.0 % [facility] Hematocrit (Bld) [Volume fraction] 37.6 % 36.0 - 48.0 % [facility] Hemoglobin (Bld) [Mass/Vol] 12 g/dL 12.0 - 16.0 g/dL [facility] IMMATURE GRANULOCYTES ABS AUTO 0.03 [facility] Immature granulocytes/100 WBC (Bld) 0.3 % 0.0 - 0.5 % [facility] Interpretation and review of laboratory results Abnormal [facility] LYMPHOCYTES ABSOLUTE AUTO 2.4 [facility] Lymphocytes/100 WBC (Bld) 26.5 % 20.5 - 60.0 % [facility] MCH (RBC) [Entitic mass] 27.8 pg 26.7 - 34.0 pg [facility] MCHC (RBC) [Mass/Vol] 31.9 g/dL 29.9 - 35.2 g/dL [facility] MCV (RBC) [Entitic vol] 87.2 fL 81.0 - 99.0 fL [facility] MONOCYTES ABSOLUTE AUTO 0.9 [facility] Monocytes/100 WBC (Bld) 9.8 % 1.7 - 12.0 % [facility] NEUTROPHILS ABSOLUTE AUTO 5.3 [facility] Neutrophils/100 WBC (Bld) 58.6 % 43.0 - 75.0 % [facility] Platelet mean volume (Bld) [Entitic vol] 10.2 fL 9.5 - 13.5 fL [facility] TBH EO # 0.4 [facility] TBH PLT 243 [facility] TB RBC 4.31 [facility] TB WBC 9 [facility] Office Visiton 07-14-2024 Follow-up visit [id number] Sylvia Moon 1965 F Date Provider Department Center 07/14/2024 Mia-FLORY PRUITT [facility] Family History Problem Relation Age of Onset Hypertension Mother Hypertension Father Family Status - Relation Status Age at Mother Father Level of Service:38249 [place] OFFICE/OUTPATIENT ESTABLISHED MOD MDM 30 MIN Reason for Visit and Comments: Follow-up [[id number]] [facility] ALL CBC WITH AUTO DIFFon BASOPHILS ABSOLUTE AUTO 0.1 N [facility] Basophils/100 WBC (Bld) 0.9 % 0.2 - 2.0 % [facility] Eosinophils/100 WBC (Bld) 3.5 % 0.9 - 7.0 % [facility] Erythrocyte distribution width (RBC) [Ratio] 13.4 % 11.0 - 15.0 % [facility] Hematocrit (Bld) [Volume fraction] 36.5 % 36.0 - 48.0 % [facility] Hemoglobin (Bld) [Mass/Vol] 12 g/dL 12.0 - 16.0 g/dL [facility] IMMATURE GRANULOCYTES ABS AUTO 0.02 [facility] Immature granulocytes/100 WBC (Bld) 0.2 % 0.0 - 0.5 % [facility] Interpretation and review of laboratory results Abnormal [facility] LYMPHOCYTES ABSOLUTE AUTO 2 [facility] Lymphocytes/100 WBC (Bld) 24.3 % 20.5 - 60.0 % [facility] MCH (RBC) [Entitic mass] 28.8 pg 26.7 - 34.0 pg [facility] MCHC (RBC) [Mass/Vol] 32.9 g/dL 29.9 - 35.2 g/dL [facility] MCV (RBC) [Entitic vol] 87.5 fL 81.0 - 99.0 fL [facility]OCYTES ABSOLUTE [facility] WBC (Bld) 8.5 % 1.7 - 12.0 % [facility] NEUTROPHILS ABSOLUTE AUTO 5 [facility] Neutrophils/100 WBC (Bld) 62.6 % 43.0 - 75.0 % [facility] Platelet mean volume (Bld) [Entitic vol] 10.5 fL 9.5 - 13.5 fL [facility] TBH EO # 0.3 [facility] TBH PLT 271 [facility] TB RBC 4.17 Low [facility] TB WBC 8 [facility] ALL SED RATEon 03-23-2024 TBH SED RATE 13 NINF [facility] 29on 03-05-2024 29 Addended by: BIBIANA HURLEY on: 03/05/2024 01:13 PM Modules accepted: Orders Normal [facility] Office Visiton 03-05-2024 Follow-up visit [id number] Sylvia Moon 1965 F Date Provider Department Center 03/05/2024 FLORY [facility] KEVIN [facility] Family History Problem Relation Age of Onset Hypertension Mother Hypertension Father Family Status - Relation Status Age at Mother Father Level of Service:43529 [place] OFFICE/OUTPATIENT ESTABLISHED MOD MDM 30 MIN Normal [facility] Urology Office/Clinic Noteon 02-07-2024 Urology Office/Clinic Note [...] When Contact Information JUNIOR JIMENEZ, Frank Lea, UR [address] [id number]- Additional Instructions: 6 mos w/ PVR Patient [...] genital org (more content not included)... Normal [facility] Comment on above: Result Comment: Elec tronically Signed By: Frank JOE MD\.br\Date and Time Signed: 02/07/24 08:44 EDT\.br\Electronically Co-Signed By: Kayli Garrido\.br\Date and Time Co-Signed: 02/07/24 08:42 EDT 36on 01-31-2024 36 Reorder Per Prior Authorization Patients medication needs to go to [facility]. Medication has been sent Normal [facility] Documentationon 12-25-2023 Documentation [id number] Aldarom,Earlynne 1965 F Date Provider Department Center 12/25/2023 3029-ZACHERY [facility] Mull[facility] Count Family History Problem Relation Age of Onset Hypertension Mother Hypertension Father Family Status - Relation Status Age at Mother Father Reason for Visit and Comments: Prior Authorization [826] - Opsumit Denied Please see note Normal [facility] HPon 12-18-2023 HP H&P reviewed. The patient was examined and there are no changes to the H&P. 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 Will proceed with RHC for further assessment. Procedure's details, risks and benefits discussed with the patient and she's agreeable. Normal [facility] NURSNOTEon 12-18-2023 NURSNOTE RN educated pt on d/ c instructions. RN encouraged pt to voice any questions or concerns. Pt verbalizes no questions or concerns at this time. Pt was walked off of unit with all of belongings. Normal [facility] CT CHEST WO CONTRASTon 12-14 [...] Shar Chery MD 12/15/23 Final result Normal [facility] Abstracton 12-05-2023 Abstract [id number] Aldarom,Earlynne 1965 F Date Provider Department Center 12/05/2023 MiaFLORY PRUITT [facility] Family History Problem Relation Age of Onset Hypertension Mother Hypertension Father Family Status - Relation Status Age at Mother Father [facility] 3612-04-2023 36 Thank you for the information. We will get this sent to another pharmacy [facility] - Attestation signed by Flory [...] (CMS/HCC) Chest pain Coronary artery disease involving [place] coronary artery of [place] heart without angina pectoris Deficiency anemia Essential [...] physical exam H (more content not included)... [facility] Office Visiton 12-04-2023 Follow-up visit [id number] Sylvia Moon 1965 F Date Provider Department Center 12/04/2023 Mia-FLORY PRUITT [facility] Family History Problem Relation Age of Onset Hypertension Mother Hypertension Father Family Status - Relation Status Age at Mother Father Level of Service:20471 [place] OFFICE/OUTPATIENT ESTABLISHED MOD MDM 30 MIN (GC) Normal [facility] CBC AUTO DIFFon 11-06-2022 BASO # 0.1 103/ul Normal 0.0-0.1 [facility] Comment on above: Performed By: #### C BC #### [facility] [address] [address] [address] Stefany Corral Basophils/100 WBC (Bld) 0.7 % Normal 0.2-2.0 [facility] Comment on above: Performed By: #### C BC #### [facility] [address] [address] [address] Stefany Corral EO # 0.3 103/ul Normal 0.0-0.7 [facility] Comment on above: Performed By: #### C BC #### [facility] [address] [place] [address] Dr. Stefany Corral Eosinophils/100 WBC (Bld) 3.0 % Normal 0.9-7.0 [facility] Comment on above: Performed By: #### C BC #### [facility] [address] [address] [address] Stefany Corral Erythrocyte distribution width (RBC) [Ratio] 15.1 % Critically high 11.0-15.0 [facility] Comment on above: Performed By: #### C BC #### [facility] [address] [place] [address] Dr. Stefany Corral Hematocrit (Bld) [Volume fraction] 36.2 % Normal 36.0-48.0 [facility] Comment on above: Performed By: #### C BC #### [facility] [address] [place] [address] Dr. Stefany Corral Hemoglobin (Bld) [Mass/Vol] 12.0 g/dL Normal 12.0-16.0 [facility] Comment on above: Performed By: #### C BC #### [facility] [address] [place] [address] Dr. Stefany Corral IG # 0.03 10e3/ul Normal 0.00-0.03 [facility] Comment on above: Performed By: #### C BC #### [facility] [address] [place] [address] Dr. Stefany Corral IG % 0.3 % Normal 0.0-0.5 [facility] Comment on above: Performed By: #### C BC #### [facility] [address] [place] [address] Dr. Stefany Corral LYMPH # 2.4 103/ul Normal 1.2-3.8 [facility] Comment on above: Performed By: #### C BC #### [facility] [address] [place] [address] Dr. Stefany Corral Lymphocytes/100 WBC (Bld) 27.4 % Normal 20.5-60.0 [facility] Comment on above: Performed By: #### C BC #### [facility] [address] [place] [address] Dr. Stefany Corral MANUAL DIFF REQ NO Normal [facility] Comment on above: Performed By: #### C BC #### [facility] [address] [place] [address] Dr. Stefany Corral MCH (RBC) [Entitic mass] 28.4 pg Normal 26.7-34.0 [facility] Comment on above: Performed By: #### C BC #### [facility] [address] [place] [address] Dr. Stefany Corral MCHC (RBC) [Mass/Vol] 33.1 g/dL Normal 29.9-35.2 [facility] Comment on above: Performed By: #### C BC #### [facility] [address] [place] [address] Dr. Stefany Corral MCV (RBC) [Entitic vol] 85.6 fL Normal 81.0-99.0 [facility] Comment on above: Performed By: #### C BC #### [facility] [address] [place] [address] Dr. Stefany Corral MONO # 1.0 103/ul Critically high 0.3-0.8 [facility] Comment on above: Performed By: #### C BC #### [facility] [address] [place] [address] Dr. Stefany Corral Monocytes/100 WBC (Bld) 11.2 % Normal 1.7-12.0 [facility] Comment on above: Performed By: #### C BC #### [facility] [address] [place] [address] Dr. Stefany Corral NEUT # 5.0 103/ul Normal 1.4-6.5 [facility] Comment on above: Performed By: #### C BC #### [facility] [address] [place] [address] Dr. Stefany Corral Neutrophils/100 WBC (Bld) 57.4 % Normal 43.0-75.0 [facility] Comment on above: Performed By: #### C BC #### [facility] [address] [place] [address] Dr. Stefany Corral Platelet mean volume (Bld) [Entitic vol] 10.0 fL Normal 9.5-13.5 [facility] Comment on above: Performed By: #### C BC #### [facility] [address] [place] [address] Dr. Stefany Corral PLT 321 103/ul Normal 150-450 [facility] Comment on above: Performed By: #### C BC #### [facility] [address] [place] [address] Dr. Stefany Corral RBC 4.23 106/ul Normal 4.20-5.40 [facility] Comment on above: Performed By: #### C BC #### [facility] [address] [place] [address] Dr. Stefany Corral WBC 8.6 103/ul Normal 4.0-11.0 [facility] Comment on above: Performed By: #### C BC #### [facility] [address] [place] [address] Dr. Stefany Corral CREATININEon 11-06-2022 Creatinine [Mass/Vol] 1.14 mg/dL Critically high 0.55-1.02 [facility] Comment on above: Performed By: #### PETRONA MILAN #### [facility] [address] [place] [address] Dr. Stefany Corral EGFR-AF BRITISH 59 mL/min/1.73m2 Critically low >=60 [facility] Comment on above: Performed By: #### Pawel BETHEA CREA #### [facility] [address] [place] [address] Dr. Stefany Corral EGFR-NON AF BRITISH 49 mL/min/1.73m2 Critically low >=60 [facility] Comment on above: Performed By: #### Pawel BETHEA CREA #### [facility] [address] [place] [address] Dr. Stefany Corral LIVER PROFILEon 11-06-2022 Albumin [Mass/Vol] 3.5 g/dL Normal 3.4-5.0 [facility] Comment on above: Performed By: #### Pawel BETHEA CREA #### [facility] [address] [place] [address] Dr. Stefany Corral Albumin/Globulin [Mass ratio] 0.9 {ratio} Normal [facility] Comment on above: Performed By: #### Pawel BETHEA CREA #### [facility] [address] [place] [address] Dr. Stefany Corral ALP [Catalytic activity/Vol] 124 U/L Critically high 46-116 [facility] Comment on above: Performed By: #### Pawel BETHEA CREA #### [facility] [address] [place] [address] Dr. Stefany Corral ALT [Catalytic activity/Vol] 18 U/L Normal 14-59 [facility] Comment on above: Performed By: #### Pawel BETHEA CREA #### [facility] [address] [place] [address] Dr. Stefany Corral AST [Catalytic activity/Vol] 16 U/L Normal 15-37 [facility] Comment on above: Performed By: #### Pawel BETHEA CREA #### [facility] [address] [place] [address] Dr. Stefany Corral BILI, CONJUGATED 0.0 mg/dL Normal 0.0-0.2 [facility] Comment on above: Performed By: #### PETRONA MILAN #### [facility] [address] [place] [address] Dr. Stefany Corral Bilirubin [Mass/Vol] 0.2 mg/dL Normal 0.2-1.0 [facility] Comment on above: Performed By: #### L CHELSIE BETHEAA #### [facility] [address] [place] [address] Dr. Stefany Corral Globulin (S) [Mass/Vol] 4.0 g/dL Normal [facility] Comment on above: Performed By: #### PETRONA MILAN #### [facility] [address] [place] [address] Dr. Stefany Corral Protein [Mass/Vol] 7.5 g/dL Normal 6.4-8.2 [facility] Comment on above: Performed By: #### PETRONA MILAN #### [facility] [address] [place] [address] Dr. Stefany Corral SED RATE WESTERGRENon 2022 SED RATE 19 mm/hr Normal <=30 [facility] Comment on above: Performed By: #### S EDR #### [facility] [address] [place] [address] Dr. Stefany Corral CBC AUTO DIFFon 09-11-2022 BASO # 0.1 103/ul Normal 0.0-0.1 [facility] Comment on above: Performed By: #### C BC #### [facility] [address] [place] [address] Dr. Stefany Corral Basophils/100 WBC (Bld) 0.6 % Normal 0.2-2.0 [facility] Comment on above: Performed By: #### C BC #### [facility] [address] [place] [address] Dr. Stefany Corral EO # 0.1 103/ul Normal 0.0-0.7 [facility] Comment on above: Performed By: #### C BC #### [facility] [address] [place] [address] Dr. Stefany Corral Eosinophils/100 WBC (Bld) 1.4 % Normal 0.9-7.0 [facility] Comment on above: Performed By: #### C BC #### [facility] [address] [place] [address] Dr. Stefany Corral Erythrocyte distribution width (RBC) [Ratio] 13.7 % Normal 11.0-15.0 [facility] Comment on above: Performed By: #### C BC #### [facility] [address] [place] [address] Dr. Stefany Corral Hematocrit (Bld) [Volume fraction] 40.2 % Normal 36.0-48.0 [facility] Comment on above: Performed By: #### C BC #### [facility] [address] [place] [address] Dr. Stefany Corral Hemoglobin (Bld) [Mass/Vol] 13.4 g/dL Normal 12.0-16.0 [facility] Comment on above: Performed By: #### C BC #### [facility] [address] [place] [address] Dr. Stefany Corral IG # 0.03 10e3/ul Normal 0.00-0.03 [facility] Comment on above: Performed By: #### C BC #### [facility] [address] [place] [address] Dr. Stefany Corral IG % 0.3 % Normal 0.0-0.5 [facility] Comment on above: Performed By: #### C BC #### [facility] [address] [place] [address] Dr. Stefany Corral LYMPH # 2.4 103/ul Normal 1.2-3.8 [facility] Comment on above: Performed By: #### C BC #### [facility] [address] [place] [address] Dr. Stefany Corral Lymphocytes/100 WBC (Bld) 27.4 % Normal 20.5-60.0 [facility] Comment on above: Performed By: #### C BC #### [facility] [address] [place] [address] Dr. Stefany Corral MANUAL DIFF REQ NO Normal [facility] Comment on above: Performed By: #### C BC #### [facility] [address] [place] [address] Dr. Stefany Corral MCH (RBC) [Entitic mass] 27.5 pg Normal 26.7-34.0 [facility] Comment on above: Performed By: #### C BC #### [facility] [address] [place] [address] Dr. Stefany Corral MCHC (RBC) [Mass/Vol] 33.3 g/dL Normal 29.9-35.2 [facility] Comment on above: Performed By: #### C BC #### [facility] [address] [place] [address] Dr. Stefany Corral MCV (RBC) [Entitic vol] 82.4 fL Normal 81.0-99.0 [facility] Comment on above: Performed By: #### C BC #### [facility] [address] [place] [address] Dr. Stefany Corral MONO # 0.8 103/ul Normal 0.3-0.8 [facility] Comment on above: Performed By: #### C BC #### [facility] [address] [place] [address] Dr. Stefany Corral Monocytes/100 WBC (Bld) 8.6 % Normal 1.7-12.0 [facility] Comment on above: Performed By: #### C BC #### [facility] [address] [place] [address] Dr. Stefany Corral NEUT # 5.5 103/ul Normal 1.4-6.5 [facility] Comment on above: Performed By: #### C BC #### [facility] [address] [place] [address] Dr. Stefany Corral Neutrophils/100 WBC (Bld) 61.7 % Normal 43.0-75.0 [facility] Comment on above: Performed By: #### C BC #### [facility] [address] [place] [address] Dr. Stefany Corral Platelet mean volume (Bld) [Entitic vol] 10.2 fL Normal 9.5-13.5 [facility] Comment on above: Performed By: #### C BC #### [facility] [address] [address] [address] Stefany Corral PLT 326 103/ul Normal 150-450 [facility] Comment on above: Performed By: #### C BC #### [facility] [address] [address] [address] Stefany Corral RBC 4.88 106/ul Normal 4.20-5.40 [facility] Comment on above: Performed By: #### C BC #### [facility] [address] [address] [address] Stefany Corral WBC 8.9 103/ul Normal 4.0-11.0 [facility] Comment on above: Performed By: #### C BC #### [facility] [address] [place] [address] Dr. Stefany Corral CREATININEon 09-11-2022 Creatinine [Mass/Vol] 1.34 mg/dL Critically high 0.55-1.02 [facility] Comment on above: Performed By: #### PETRONA MILAN #### [facility] [address] [place] [address] Dr. Stefany Corral EGFR-AF BRITISH 49 mL/min/1.73m2 Critically low >=60 [facility] Comment on above: Performed By: #### CHELSIE MILANA #### [facility] [address] [place] [address] Dr. Stefany Corral EGFR-NON AF BRITISH 41 mL/min/1.73m2 Critically low >=60 [facility] Comment on above: Performed By: #### CHELSIE MILANA #### [facility] [address] [place] [address] Dr. Stefany Corral LIVER PROFILEon 09-11-2022 Albumin [Mass/Vol] 3.8 g/dL Normal 3.4-5.0 [facility] Comment on above: Performed By: #### Pawel BETHEA CREA #### [facility] [address] [place] [address] Dr. Stefany Corral Albumin/Globulin [Mass ratio] 0.9 {ratio} Normal [facility] Comment on above: Performed By: #### L NEEMA CREA #### [facility] [address] [place] [address] Dr. Stefany Corral ALP [Catalytic activity/Vol] 114 U/L Normal 46-116 [facility] Comment on above: Performed By: #### L NEEMA CREA #### [facility] [address] [place] [address] Dr. Stefany Corral ALT [Catalytic activity/Vol] 12 U/L Critically low 14-59 [facility] Comment on above: Performed By: #### L NEEMA CREA #### [facility] [address] [place] [address] Dr. Stefany Corral AST [Catalytic activity/Vol] 17 U/L Normal 15-37 [facility] Comment on above: Performed By: #### Pawel BETHEA CREA #### [facility] [address] [place] [address] Dr. Stefany Corral BILI, CONJUGATED 0.0 mg/dL Normal 0.0-0.2 [facility] Comment on above: Performed By: #### Pawel BETHEA CREA #### [facility] [address] [place] [address] Dr. Stefany Corral Bilirubin [Mass/Vol] 0.2 mg/dL Normal 0.2-1.0 [facility] Comment on above: Performed By: #### Pawel BETHEA CREA #### [facility] [address] [place] [address] Dr. Stefany Corral Globulin (S) [Mass/Vol] 4.3 g/dL Normal T [facility] Comment on above: Performed By: #### L NEEMA CREA #### [facility] [address] [place] [address] Dr. Stefany Corral Protein [Mass/Vol] 8.1 g/dL Normal 6.4-8.2 [facility] Comment on above: Performed By: #### L NEEMA CREA #### [facility] [address] [place] [address] Dr. Stefany Corral SED RATE [facility] 2022 SED RATE 79 mm/hr Critically high <=30 [facility] Comment on above: Performed By: #### S EDR #### [facility] [facility] [address] [address] [address] Stefany Corral XR chest 2V*on 08-13-2022 XR chest 2V* [facility] [address] [place] [address] XRay Report Signed Patient: Sylvia Bass MR#: [id number] : 1965 Acct:[id number] Age/Sex: 57 / F ADM Date: 08/13/22 Loc: XD Room: Type: [facility] Attending Dr: Giacomo Benitez DPAri Copies [...] Devonte Platt M.D.08/13/2022 2:42 PM Dictation Location: [place] [address] Transcribed By: [facility] 08/13/22 1442 Dictated By: Devonte Platt DO 08/13/22 1441 Signed By: 08/13/22 1442 Normal [facility] Basic Metabolic Panelon 12-2 Anion gap [Moles/Vol] 15.3 mmol/L High 6.0-15.0 [facility] Comment on above: Order Comment: PT IS NON FASTING Reason for Exam HAV (hallux abducto valgus), left;Metatarsalgia of right michelet Performed By: #### C BC, BMP #### [facility] [address] Calcium [Mass/Vol] 9.2 mg/dL Normal 8.2-10.2 [facility] Comment on above: Order Comment: PT IS NON FASTING Reason for Exam HAV (hallux abducto valgus), left;Metatarsalgia of right michelet Result Comment: PERF ORMED BY: [place] [address] PATHOLOGIST DIRECTOR COLLEGE JESUSITA NICHOLE M.D. Performed By: #### C BC, BMP #### [address] Chloride [Moles/Vol] 98 mmol/L Normal 95-114 [facility] Comment on above: Order Comment: PT IS NON FASTING Reason for Exam HAV (hallux abducto valgus), left;Metatarsalgia of right michelet Performed By: #### C BC, BMP #### [address] CO2 [Moles/Vol] 23.6 mmol/L Normal 22.0-30.0 [facility] Comment on above: Order Comment: PT IS NON FASTING Reason for Exam HAV (hallux abducto valgus), left;Metatarsalgia of right michelet Performed By: #### C BC, BMP #### [address] Creatinine [Mass/Vol] 1.48 mg/dL High 0.44-1.03 [facility] Comment on above: Order Comment: PT IS NON FASTING Reason for Exam HAV (hallux abducto valgus), left;Metatarsalgia of right michelet Performed By: #### C BC, BMP #### [place] [address] [place] Estimated GFR ( Shandra 44 Normal [facility] Comment on above: Order Comment: PT IS NON FASTING Reason for Exam HAV (hallux abducto valgus), left;Metatarsalgia of right michelet Result Comment: GFR estimated reference range: According to KDOQI guidelines, <60 ml/min/1.73m2 is sufficient to diagnose a patient with chronic kidney disease. Performed By: #### C BC, BMP #### [address] [address] [place] Estimated GFR (Non- Am 36 Normal [facility] Comment on above: Order Comment: PT IS NON FASTING Reason for Exam HAV (hallux abducto valgus), left;Metatarsalgia of right michelet Performed By: #### C BC, BMP #### [facility] [address] [id number] [facility] Glucose [Mass/Vol] 95 mg/dL Normal 70-100 [facility] Comment on above: Order Comment: PT IS NON FASTING Reason for Exam HAV (hallux abducto valgus), left;Metatarsalgia of right michelet Result Comment: [facility] Glucose Reference Range is dependent on time and content of last meal. Glucose of more than 200 mg/dL in a nonstressed, ambulatory subject supports the diagnosis of Diabetes Mellitus. ADA recommended reference range Performed By: #### C BC, BMP #### [facility] [address] Potassium [Moles/Vol] 3.9 mmol/L Normal 3.5-5.1 [facility] Comment on above: Order Comment: PT IS NON FASTING Reason for Exam HAV (hallux abducto valgus), left;Metatarsalgia of right michelet Performed By: #### C BC, BMP #### [facility] [address] Sodium [Moles/Vol] 133 mmol/L Low 136-146 [facility] Comment on above: Order Comment: PT IS NON FASTING Reason for Exam HAV (hallux abducto valgus), left;Metatarsalgia of right michelet Performed By: #### C BC, BMP #### [facility] [address] [id number] [facility] Urea nitrogen [Mass/Vol] 29 mg/dL High 9-23 [facility] Comment on above: Order Comment: PT IS NON FASTING Reason for Exam HAV (hallux abducto valgus), left;Metatarsalgia of right michelet Performed By: #### C BC, BMP #### [facility] [address] [place] [address] [place] Basophils Auto (Bld) [#/Vol] Ordered By: Josefa Martinez on 07-25-2022 Basophils (Bld) [#/Vol] 0.0 10*3/uL 0.0-0.2 [facility] Basophils/100 WBC Auto (Bld) Ordered By: Josefa Martinez on 07-25-2022 Basophils/100 WBC (Bld) 0.4 % . [facility] Complete Blood Count Auto Di ffon 07-25-2022 Basophils (Bld) [#/Vol] 0.0 10*3/uL Normal 0.0-0.2 [facility] Comment on above: Order Comment: Reaso n for Exam HAV (hallux abducto valgus), left;Metatarsalgia of right michelet Result Comment: PERF ORMED BY: [place] [address] PATHOLOGIST DIRECTOR COLLEGE JESUSITA NICHOLE M.D. Performed By: #### C BC, BMP #### [address] Basophils/100 WBC (Bld) 0.4 % Normal . [facility] Comment on above: Order Comment: Reaso n for Exam HAV (hallux abducto valgus), left;Metatarsalgia of right michelet Performed By: #### C BC, BMP #### [address] Eosinophils (Bld) [#/Vol] 0.5 10*3/uL High 0.0-0.45 [facility] Comment on above: Order Comment: Reaso n for Exam HAV (hallux abducto valgus), left;Metatarsalgia of right michelet Performed By: #### C BC, BMP #### [place] [address] [place] Eosinophils/100 WBC (Bld) 6.1 % Normal . [facility] Comment on above: Order Comment: Reaso n for Exam HAV (hallux abducto valgus), left;Metatarsalgia of right michelet Performed By: #### C BC, BMP #### [place] [address] [place] Erythrocyte distribution width (RBC) [Ratio] 14.9 % Normal 11.9-15.3 [facility] Comment on above: Order Comment: Reaso n for Exam HAV (hallux abducto valgus), left;Metatarsalgia of right michelet Performed By: #### C BC, BMP #### [address] Hematocrit (Bld) [Volume fraction] 38.3 % Normal 34.0-46.4 [facility] Comment on above: Order Comment: Reaso n for Exam HAV (hallux abducto valgus), left;Metatarsalgia of right michelet Performed By: #### C BC, BMP #### [address] Hemoglobin (Bld) [Mass/Vol] 12.5 g/dL Normal 11.8-15.4 [facility] Comment on above: Order Comment: Reaso n for Exam HAV (hallux abducto valgus), left;Metatarsalgia of right michelet Performed By: #### C BC, BMP #### [address] Lymphocytes (Bld) [#/Vol] 2.6 10*3/uL Normal 1.00-4.8 [facility] Comment on above: Order Comment: Reaso n for Exam HAV (hallux abducto valgus), left;Metatarsalgia of right michelet Performed By: #### C BC, BMP #### [address] Lymphocytes/100 WBC (Bld) 32.8 % Normal . [facility] Comment on above: Order Comment: Reaso n for Exam HAV (hallux abducto valgus), left;Metatarsalgia of right michelet Performed By: #### C BC, BMP #### [address] MCH (RBC) [Entitic mass] 27.1 pg Normal 24.7-34.3 [facility] Comment on above: Order Comment: Reaso n for Exam HAV (hallux abducto valgus), left;Metatarsalgia of right michelet Performed By: #### C BC, BMP #### [facility] [address] MCV (RBC) [Entitic vol] 83.2 fL Normal 80-100 [facility] Comment on above: Order Comment: Reaso n for Exam HAV (hallux abducto valgus), left;Metatarsalgia of right michelet Performed By: #### C BC, BMP #### [facility] [address] Mean Corpuscular HGB Conc 32.5 g/dL Normal 32.0-35.0 [facility] Comment on above: Order Comment: Reaso n for Exam HAV (hallux abducto valgus), left;Metatarsalgia of right michelet Performed By: #### C BC, BMP #### [address] Monocytes (Bld) [#/Vol] 1.0 10*3/uL High 0.0-0.8 [facility] Comment on above: Order Comment: Reaso n for Exam HAV (hallux abducto valgus), left;Metatarsalgia of right michelet Performed By: #### C BC, BMP #### [address] Monocytes/100 WBC (Bld) 12.5 % Normal . [facility] Comment on above: Order Comment: Reaso n for Exam HAV (hallux abducto valgus), left;Metatarsalgia of right michelet Performed By: #### C BC, BMP #### [place] [address] [place] Neutrophils (Bld) [#/Vol] 3.8 10*3/uL Normal 1.8-7.7 [facility] Comment on above: Order Comment: Reaso n for Exam HAV (hallux abducto valgus), left;Metatarsalgia of right michelet Performed By: #### C BC, BMP #### [place] [address] [place] Neutrophils/100 WBC (Bld) 48.2 % Normal . [facility] Comment on above: Order Comment: Reaso n for Exam HAV (hallux abducto valgus), left;Metatarsalgia of right michelet Performed By: #### C BC, BMP #### [facility] [address] NRBC% 0.1 /100{WBC} Normal 0-0.5 [facility] Comment on above: Order Comment: Reaso n for Exam HAV (hallux abducto valgus), left;Metatarsalgia of right michelet Performed By: #### C BC, BMP #### [facility] [address] Platelet mean volume (Bld) [Entitic vol] 8.6 fL Normal 6.3-10.7 [facility] Comment on above: Order Comment: Reaso n for Exam HAV (hallux abducto valgus), left;Metatarsalgia of right michelet Performed By: #### C BC, BMP #### [facility] [address] Platelets (Bld) [#/Vol] 257 10*3/uL Normal 150-450 [facility] Comment on above: Order Comment: Reaso n for Exam HAV (hallux abducto valgus), left;Metatarsalgia of right michelet Performed By: #### C BC, BMP #### [address] RBC (Bld) [#/Vol] 4.60 10*6/uL Normal 3.60-5.00 [facility] Comment on above: Order Comment: Reaso n for Exam HAV (hallux abducto valgus), left;Metatarsalgia of right michelet Performed By: #### C BC, BMP #### [facility] [address] WBC (Bld) [#/Vol] 7.9 10*3/uL Normal 3.8-11.6 [facility] Comment on above: Order Comment: Reaso n for Exam HAV (hallux abducto valgus), left;Metatarsalgia of right michelet Performed By: #### C BC, BMP #### [facility] [address] Creatinine and Glomerular fi ltration rate.predicted panel (S/P/Bld)Ordered By: Josefa Martinez on 07-25-2022 Creatinine [Mass/Vol] 1.48 mg/dL 0.44-1.03 [facility] ECG 12 lead ECGon 07-25-2022 ECG 12 lead ECG [facility] [address] [place] [address] Electrocardiograph Report Signed Patient: Sylvia Bass MR#: [id number] : 1965 Acct:[id number] Age/Sex: 57 / F ADM Date: 07/25/22 Loc: Room: Type: [facility] Attending Dr: Josefa Martinez MD Ordering [...] Jan Balderrama MD 1 09/25/21 1625 Normal [facility] Eosinophils Auto (Bld) [#/Vo l]Ordered By: Josefa Martinez on 07-25-2022 Eosinophils (Bld) [#/Vol] 0.5 10*3/uL 0.0-0.45 [facility] Eosinophils/100 WBC Auto (Bl d)Ordered By: Josefa Martinez on 07-25-2022 Eosinophils/100 WBC (Bld) 6.1 % . [facility] Erythrocyte distribution wid th Auto (RBC) [Ratio]Ordered By: Josefa Martinez on 07-25-2022 Erythrocyte distribution width (RBC) [Ratio] 14.9 % 11.9-15.3 [facility] Estimated glomerular filtrat ion rate (GFR) non- AmericanOrdered By: Josefa Martinez on 07-25-2022 GFR/1.73 sq M.predicted among non-blacks MDRD (S/P/Bld) [Vol rate/Area] 36 mL/Min [facility] Hematocrit Auto (Bld) [Volum e fraction]Ordered By: Josefa Martinez on 07-25-2022 Hematocrit (Bld) [Volume fraction] 38.3 % 34.0-46.4 [facility] Hemoglobin [Mass/volume] in BloodOrdered By: Josefa Martinez on 07-25-2022 Hemoglobin (Bld) [Mass/Vol] 12.5 g/dL 11.8-15.4 [facility] Leukocytes [#/volume] correc brendan for nucleated erythrocytes in Blood by Automated counOrdered By: Josefa Martinez on 07-25-2022 WBC corrected for nucl RBC Auto (Bld) [#/Vol] 7.9 10*3/uL 3.8-11.6 [facility] Lymphocytes Auto (Bld) [#/Vo l]Ordered By: Josefa Martinez on 07-25-2022 Lymphocytes (Bld) [#/Vol] 2.6 10*3/uL 1.00-4.8 [facility] Lymphocytes/100 WBC Auto (Bl d)Ordered By: Josefa Martinez on 07-25-2022 Lymphocytes/100 WBC (Bld) 32.8 % . [facility] MCH Auto (RBC) [Entitic mass ]Ordered By: Josefa Martinez on 07-25-2022 MCH (RBC) [Entitic mass] 27.1 pg 24.7-34.3 [facility] MCHC Auto (RBC) [Mass/Vol]Or dered By: Josefa Martinez on 07-25-2022 MCHC (RBC) [Mass/Vol] 32.5 g/dL 32.0-35.0 [facility] MCV Auto (RBC) [Entitic vol] Ordered By: Josefa Guzmana on 07-25-2022 MCV (RBC) [Entitic vol] 83.2 fL 80-100 [facility] Monocytes Auto (Bld) [#/Vol] Ordered By: Rugamarjit Goodwin on 07-25-2022 Monocytes (Bld) [#/Vol] 1.0 10*3/uL 0.0-0.8 [facility] Monocytes/100 WBC Auto (Bld) Ordered By: Josefa Michelle on 07-25-2022 Monocytes/100 WBC (Bld) 12.5 % . [facility] Neutrophils Auto (Bld) [#/Vo l]Ordered By: Josefa Goodwin on 07-25-2022 Neutrophils (Bld) [#/Vol] 3.8 10*3/uL 1.8-7.7 [facility] Neutrophils/100 WBC Auto (Bl d)Ordered By: Josefa Michelle on 07-25-2022 Neutrophils/100 WBC (Bld) 48.2 % . [facility] No Panel InformationOrdered By: Josefa Martinez on 07-25-2022 Estimated GFR () 44 mL/Min [facility] Comment on above: GFR estimated refere nce range: According to KDOQI guidelines, <60 ml/min/1.73m2 is sufficient to diagnose a patient with chronic kidney disease. Pharmacy Creatinine Clearance (Chem N/A [facility] Nucleated erythrocytes [Pres ence] in Blood by Automated countOrdered By: Josefa Martinez on 07-25-2022 Nucleated RBC Auto Ql (Bld) 0.1 /100{WBC} 0-0.5 [facility] Platelet mean volume Auto (B ld) [Entitic vol]Ordered By: Josefa Goodwin on 07-25-2022 Platelet mean volume (Bld) [Entitic vol] 8.6 fL 6.3-10.7 [facility] Platelets Auto (Bld) [#/Vol] Ordered By: Josefa Guzmana on 07-25-2022 Platelets (Bld) [#/Vol] 257 10*3/uL 150-450 [facility] RBC Auto (Bld) [#/Vol]Ordere d By: Josefa Martinez on 07-25-2022 RBC (Bld) [#/Vol] 4.60 10*6/uL 3.60-5.00 [facility] Serum or plasma anion gap de terminationOrdered By: Josefa Martinez on 07-25-2022 Anion gap [Moles/Vol] 15.3 mmol/L 6.0-15.0 [facility] Serum or plasma calcium enma urement (mass/volume)Ordered By: Josefa Martinez on 07-25-2022 Calcium [Mass/Vol] 9.2 mg/dL 8.2-10.2 [facility] Serum or plasma chloride horace surement (moles/volume)Ordered By: Josefa Martinez on 07-25-2022 Chloride [Moles/Vol] 98 mmol/L 95-114 [facility] Serum or plasma glucose enma urement (mass/volume)Ordered By: Josefa Martinez on 07-25-2022 Glucose [Mass/Vol] 95 mg/dL 70-100 [facility] Comment on above: ADA recommended refe rence rangeRandom Glucose Reference Range is dependent on time and content of last meal. Glucose of more than 200 mg/dL in a nonstressed, ambulatory subject supports the diagnosis of Diabetes Mellitus. Serum or plasma potassium me asurement (moles/volume)Ordered By: Josefa Martinez on 07-25-2022 Potassium [Moles/Vol] 3.9 mmol/L 3.5-5.1 [facility] Serum or plasma sodium measu rement (moles/volume)Ordered By: Josefa Martinez on 07-25-2022 Sodium [Moles/Vol] 133 mmol/L 136-146 [facility] Serum or plasma total carbon dioxide measurement (moles/volume)Ordered By: Josefa Maritnez on 07-25-2022 CO2 [Moles/Vol] 23.6 mmol/L 22.0-30.0 [facility] Serum or plasma urea nitroge n measurement (mass/volume)Ordered By: Josefa Martinez on 07-25-2022 Urea nitrogen [Mass/Vol] 29 mg/dL 9-23 [facility] WBC Auto (Bld) [#/Vol]Ordere d By: Josefa Martinez on 07-25-2022 WBC (Bld) [#/Vol] 7.9 10*3/uL 3.8-11.6 [facility] CBC with Auto Differentialon 06-11-2022 Absolute Eos # 0.11 [facility] Absolute Immature Granulocyte 0.00 [facility] Absolute Lymph # 4.52 High [facility] Absolute Rapides # 0.95 [facility] Atypical Lymphocytes 2 % [facility] Atypical Lymphocytes Absolute 0.21 k/uL [facility] Basophils (Bld) [#/Vol] 0.11 10*3/uL [facility] Basophils/100 WBC (Bld) 1 % 0 - 2 % [facility] Eosinophils/100 WBC (Bld) 1 % 1 - 4 % [facility] Hematocrit (Bld) [Volume fraction] 35.9 % Low 36.3 - 47.1 % [facility] Hemoglobin (Bld) [Mass/Vol] 11.4 g/dL Low 11.9 - 15.1 g/dL [facility] Immature granulocytes/100 WBC (Bld) 0 % 0 [facility] Interpretation and review of laboratory results Abnormal [facility] Lymphocytes/100 WBC (Bld) 43 % 24 - 43 % [facility] MCH (RBC) [Entitic mass] 27.2 pg 25.2 - 33.5 pg [facility] MCHC (RBC) [Mass/Vol] 31.8 g/dL 28.4 - 34.8 g/dL [facility] MCV (RBC) [Entitic vol] 85.7 fL 82.6 - 102.9 fL [facility] Monocytes/100 WBC (Bld) 9 % 3 - 12 % [facility] Morphology William (Bld) [Interp] Platelet scan shows Normal Platelets [facility] NRBC Automated 0.0 0.0 per 100 WBC [facility] Platelet distribution width (Bld) [Ratio] 13.4 % 11.8 - 14.4 % [facility] Platelet mean volume (Bld) [Entitic vol] 10.3 fL 8.1 - 13.5 fL [facility] Platelets (Bld) [#/Vol] 335 10*3/uL [facility] RBC (Bld) [#/Vol] 4.19 10*6/uL 3.95 - 5.1 1 m/uL [facility] Segmented neutrophils/100 WBC (Bld) 44 % 36 - 65 % [facility] Segs Absolute 4.60 [facility] WBC (Bld) [#/Vol] 10.5 10*3/uL [facility] Creatinineon 06-11-2022 Creatinine [Mass/Vol] 1.82 mg/dL High 0.50 - 0.90 mg/dL [facility] GFR/1.73 sq M.predicted MDRD (S/P/Bld) [Vol rate/Area] 32 mL/min/{1.73_m2} Low - PINF [facility] Comment on above: Effective Apr 30, [...] Interpretation and review of laboratory results Abnormal [facility] Hepatic Function Panelon Albumin [Mass/Vol] 4.3 g/dL 3.5 - 5.2 g/dL [facility] Albumin/Globulin [Mass ratio] 1.5 {ratio} 1.0 - 2.5 [facility] ALP (Bld) [Catalytic activity/Vol] 91 U/L 35 - 104 U/L [facility] ALT [Catalytic activity/Vol] 9 U/L 5 - 33 U/L [facility] AST [Catalytic activity/Vol] 18 U/L NINF - 32 U/L [facility] Bilirubin [Mass/Vol] mg/dL Low 0.3 - 1 .2 mg/dL [facility] Bilirubin, Indirect Can not be calculated 0.00 - 1.00 mg/dL [facility] Bilirubin.indirect [Mass/Vol] mg/dL NINF - 0.31 mg/dL [facility] Interpretation and review of laboratory results Abnormal [facility] Protein [Mass/Vol] 7.2 g/dL 6.4 - 8.3 g/dL [facility] Sedimentation Rateon 022 Sed Rate 15 [facility] CBC with Auto Differentialon 04-11-2022 Absolute Eos # 0.49 High [place] [facility] Absolute Immature Granulocyte 0.04 [facility] Absolute Lymph # 2.85 [facility] Absolute Rapides # 0.95 [facility] Basophils (Bld) [#/Vol] 0.07 10*3/uL [facility] Basophils/100 WBC (Bld) 1 % 0 - 2 % [facility] Eosinophils/100 WBC (Bld) 5 % High 1 - 4 % [facility] Hematocrit (Bld) [Volume fraction] 38.5 % 36.3 - 47.1 % [facility] Hemoglobin (Bld) [Mass/Vol] 12.4 g/dL 11.9 - 15.1 g/dL [facility] Immature granulocytes/100 WBC (Bld) 0 % 0 [facility] Interpretation and review of laboratory results Abnormal [facility] Lymphocytes/100 WBC (Bld) 26 % 24 - 43 % [facility] MCH (RBC) [Entitic mass] 27.6 pg 25.2 - 33.5 pg [facility] MCHC (RBC) [Mass/Vol] 32.2 g/dL 28.4 - 34.8 g/dL [facility] MCV (RBC) [Entitic vol] 85.7 fL 82.6 - 102.9 fL [facility] Monocytes/100 WBC (Bld) 9 % 3 - 12 % [facility] NRBC Automated 0.0 0.0 per 100 WBC [facility] Platelet distribution width (Bld) [Ratio] 12.3 % 11.8 - 14.4 % [facility] Platelet mean volume (Bld) [Entitic vol] 11.1 fL 8.1 - 13.5 fL [facility] Platelets (Bld) [#/Vol] 297 10*3/uL [facility] RBC (Bld) [#/Vol] 4.49 10*6/uL 3.95 - 5.1 1 m/uL [facility] Segmented neutrophils/100 WBC (Bld) 59 % 36 - 65 % [facility] Segs Absolute 6.41 [facility] WBC (Bld) [#/Vol] 10.8 10*3/uL [facility] Creatinineon 04-11-2022 Creatinine [Mass/Vol] 2.38 mg/dL High 0.5 - 0.9 mg/dL [facility] GFR 25 mL/min Low 60 - PI NF mL/min [facility] GFR Non- 21 mL/min Low 60 - PINF mL/min [facility] Interpretation and review of laboratory results Abnormal [facility] Hepatic Function Panelon Albumin [Mass/Vol] 4.5 g/dL 3.5 - 5.2 g/dL [facility] Albumin/Globulin [Mass ratio] 1.5 {ratio} 1 - 2.5 [facility] ALP (Bld) [Catalytic activity/Vol] 106 U/L High 35 - 104 U/L [facility] ALT [Catalytic activity/Vol] 16 U/L 5 - 33 U/L [facility] AST [Catalytic activity/Vol] 18 U/L NINF - 32 U/L [facility] Bilirubin [Mass/Vol] 0.2 mg/dL Low 0.3 - 1 .2 mg/dL [facility] Bilirubin, Indirect Can not be calculated 0 - 1 mg/dL [facility] Bilirubin.indirect [Mass/Vol] mg/dL NINF - 0.31 mg/dL [facility] Free PSA/Total PSA [Mass fraction] 7.5 g/dL 6.4 - 8.3 g/dL [facility] Interpretation and review of laboratory results Abnormal [facility] Laboratory - Chemistry and C hemistry - challengeon 04-11-2022 GFR/1.73 sq M.predicted MDRD (S/P/Bld) [Vol rate/Area] [facility] Comment on above: Average GFR for 50-5 9 years old: 93 mL/min/1.73sq m Chronic Kidney Disease: <60 mL/min/1.73sq m Kidney failure: <15 mL/min/1.73sq m eGFR calculated using average adult body mass. Additional eGFR calculator available at: http://www.[employer]/multiple_crcl_2012.htm Stage 1: Some kidney damage normal GFR Stage 2: Mild kidney damage GFR 60-89 Stage 3: Moderate kidney damage GFR 30-59 Stage 4: Severe kidney damage GFR 15-29 Stage 5: Severe kidney damage GFR <15 ESRD - chronic treatment by dialysis or transplant Sedimentation Rateon 022 Sed Rate 12 [facility] CBC with Auto Differentialon 02-15-2022 Absolute Eos # 0.17 [place] [facility] Absolute Immature Granulocyte [facility] Absolute Lymph # 2.35 [facility] Absolute Rapides # 0.82 [facility] Basophils (Bld) [#/Vol] 0.04 10*3/uL [facility] Basophils/100 WBC (Bld) 1 % 0 - 2 % B [facility] Eosinophils/100 WBC (Bld) 3 % 1 - 4 % [facility] Hematocrit (Bld) [Volume fraction] 36.8 % 36.3 - 47.1 % [facility] Hemoglobin (Bld) [Mass/Vol] 12.1 g/dL 11.9 - 15.1 g/dL [facility] Immature granulocytes/100 WBC (Bld) 0 % 0 [facility] Interpretation and review of laboratory results Abnormal [facility] Lymphocytes/100 WBC (Bld) 43 % 24 - 43 % [facility] MCH (RBC) [Entitic mass] 28.5 pg 25.2 - 33.5 pg [facility] MCHC (RBC) [Mass/Vol] 32.9 g/dL 28.4 - 34.8 g/dL [facility] MCV (RBC) [Entitic vol] 86.8 fL 82.6 - 102.9 fL [facility] Monocytes/100 WBC (Bld) 15 % High 3 - 12 % [facility] NRBC Automated 0.0 0.0 per 100 WBC [facility] Platelet distribution width (Bld) [Ratio] 13.5 % 11.8 - 14.4 % [facility] Platelet mean volume (Bld) [Entitic vol] 10.0 fL 8.1 - 13.5 fL [facility] Platelets (Bld) [#/Vol] 304 10*3/uL [facility] RBC (Bld) [#/Vol] 4.24 10*6/uL 3.95 - 5.1 1 m/uL [facility] Segmented neutrophils/100 WBC (Bld) 38 % 36 - 65 % [facility] Segs Absolute 2.10 [facility] WBC (Bld) [#/Vol] 5.5 10*3/uL [facility] Creatinineon 02-15-2022 Creatinine [Mass/Vol] 1.2 mg/dL High 0.5 - 0.9 mg/dL [facility] GFR 56 mL/min Low 60 - PI NF mL/min [facility] GFR Non- 46 mL/min Low 60 - PINF mL/min [facility] Hepatic Function Panelon Albumin [Mass/Vol] 4.5 g/dL 3.5 - 5.2 g/dL [facility] Albumin/Globulin [Mass ratio] 1.5 {ratio} 1 - 2.5 [facility] ALP (Bld) [Catalytic activity/Vol] 96 U/L 35 - 104 U/L [facility] ALT [Catalytic activity/Vol] 15 U/L 5 - 33 U/L [facility] AST [Catalytic activity/Vol] 25 U/L NINF - 32 U/L [facility] Bilirubin [Mass/Vol] 0.19 mg/dL Low 0.3 - 1 .2 mg/dL [facility] Bilirubin, Indirect Can not be calculated 0 - 1 mg/dL [facility] Bilirubin.indirect [Mass/Vol] mg/dL NINF - 0.31 mg/dL [facility] Free PSA/Total PSA [Mass fraction] 7.6 g/dL 6.4 - 8.3 g/dL [facility] Laboratory - Chemistry and C hemistry - challengeon 02-15-2022 GFR/1.73 sq M.predicted MDRD (S/P/Bld) [Vol rate/Area] [facility] Comment on above: Average GFR for 50-5 9 years old: 93 mL/min/1.73sq m Chronic Kidney Disease: <60 mL/min/1.73sq m Kidney failure: <15 mL/min/1.73sq m eGFR calculated using average adult body mass. Additional eGFR calculator available at: http://www.[employer]/multiple_crcl_2012.htm Stage 1: Some kidney damage normal GFR Stage 2: Mild kidney damage GFR 60-89 Stage 3: Moderate kidney damage GFR 30-59 Stage 4: Severe kidney damage GFR 15-29 Stage 5: Severe kidney damage GFR <15 ESRD - chronic treatment by dialysis or transplant No Panel Informationon 02-15 Interpretation and review of laboratory results Abnormal [facility] Sedimentation Rateon 022 Sed Rate 23 [facility] C3 Complementon 11-27-2021 Complement C3 132 mg/dL 90 - 180 mg/dL [facility] C4 Complementon 11-27-2021 Complement C4 34 mg/dL 10 - 40 mg/dL [facility] CT CHEST HIGH RESOLUTIONon 0 11-27-2021 Radiology [...] 3. Calcified atheromatous plaque and coronary calcification. [facility] [employer] Work Phone: CT CHEST HIGH RESOLUTIONOrde red By: Obinna Travis on 11-27-2021 [facility] Work Phone: No Panel Informationon 11-27 [facility] Urinalysis with Microscopico n 11-27-2021 - [facility] Bacteria, UA 2+ Abnormal None [facility] Bilirubin Urine Negative NEGATIVE [facility] lt Color, UA Yellow Yellow [facility] Epithelial Cells UA 0 TO 2 [facility] Glucose, Ur Negative NEGATIVE [facility] Interpretation and review of laboratory results Abnormal [facility] Ketones Ql (U) Negative NEGATIVE [facility] Leukocyte esterase Test strip Ql (U) SMALL Abnormal NEGATIVE [facility] Nitrite, Urine Negative NEGATIVE [facility] pH, UA 5.5 [facility] Protein, UA Negative NEGATIVE [facility] RBC, UA None [facility] Specific [place], UA 1.[address] [facility] Turbidity UA Clear Clear [facility] Urine Hgb Negative NEGATIVE [facility] Urobilinogen, Urine Normal Normal [facility] WBC, UA 5 TO 10 [facility] CBC with Auto Differentialon 10-03-2021 Absolute Eos # 0.39 [facility] Absolute Immature Granulocyte 0.04 [facility] Absolute Lymph # 2.70 [facility] alth Absolute Rapides # 0.91 [facility] lth Basophils (Bld) [#/Vol] 0.08 10*3/uL [facility] Basophils/100 WBC (Bld) 1 % 0 - 2 % [facility] Eosinophils/100 WBC (Bld) 4 % 1 - 4 % [facility] Hematocrit (Bld) [Volume fraction] 35.9 % Low 36.3 - 47.1 % [facility] Hemoglobin.gastrointest inal spec 1 Ql (Stl) 11.4 g/dL Low 11.9 - 15.1 g/dL [facility] Immature granulocytes/100 WBC (Bld) 0 % 0 [facility] Interpretation and review of laboratory results Abnormal [facility] Lymphocytes/100 WBC (Bld) 27 % 24 - 43 % [facility] MCH (RBC) [Entitic mass] 28.2 pg 25.2 - 33.5 pg [facility] MCHC (RBC) [Mass/Vol] 31.8 g/dL 28.4 - 34.8 g/dL [facility] MCV (RBC) [Entitic vol] 88.9 fL 82.6 - 102.9 fL [facility] Monocytes/100 WBC (Bld) 9 % 3 - 12 % M [facility] NRBC Automated 0.0 0.0 per 100 WBC [facility] Platelet distribution width (Bld) [Ratio] 14.7 % High 11.8 - 14.4 % [facility] Platelet mean volume (Bld) [Entitic vol] 10.5 fL 8.1 - 13.5 fL [facility] Platelets (Bld) [#/Vol] 327 10*3/uL [facility] RBC (Bld) [#/Vol] 4.04 10*6/uL 3.95 - 5.1 1 m/uL [facility] Segmented neutrophils/100 WBC (Bld) 59 % 36 - 65 % [facility] [#/Vol] 10.2 10*3/uL [facility] Creatinineon 10-03-2021 Creatinine [Mass/Vol] 1.24 mg/dL High 0.50 - 0.90 mg/dL [facility] GFR 54 mL/min Low >[address] [facility] GFR Non- 45 mL/min Low >60 [facility] Interpretation and review of laboratory results Abnormal [facility] Hepatic Function Panelon Albumin [Mass/Vol] 4.2 g/dL 3.5 - 5.2 g/dL [facility] Albumin/Globulin [Mass ratio] 1.4 {ratio} [facility] ALP (Bld) [Catalytic activity/Vol] 113 U/L High 35 - 104 U/L [facility] ALT [Catalytic activity/Vol] 11 U/L 5 - 33 U/L [facility] AST [Catalytic activity/Vol] 22 U/L <32 [facility] Bilirubin [Mass/Vol] mg/dL Low 0.3 - 1 .2 mg/dL [facility] Bilirubin, Indirect Can not be calculated 0.00 - 1.00 mg/dL [facility] Bilirubin.indirect [Mass/Vol] mg/dL <0.31 mg/dL [facility] Free PSA/Total PSA [Mass fraction] 7.1 g/dL 6.4 - 8.3 g/dL [facility] Interpretation and review of laboratory results Abnormal [facility] Laboratory - Chemistry and C hemistry - challengeon 10-03-2021 GFR/1.73 sq M.predicted MDRD (S/P/Bld) [Vol rate/Area] [facility] Comment on above: Average GFR for 50-5 9 years old: 93 mL/min/1.73sq m Chronic Kidney Disease: <60 mL/min/1.73sq m Kidney failure: <15 mL/min/1.73sq m eGFR calculated using average adult body mass. Additional eGFR calculator available at: http://www.[employer]/multiple_crcl_2012.htm Stage 1: Some kidney damage normal GFR Stage 2: Mild kidney damage GFR 60-89 Stage 3: Moderate kidney damage GFR 30-59 Stage 4: Severe kidney damage GFR 15-29 Stage 5: Severe kidney damage GFR <15 ESRD - chronic treatment by dialysis or transplant Sedimentation Rateon 022 Sed Rate 18 mm 0 - 30 mm [facility] CBC Auto DifferentialOrdered By: Vinicius Bullock on 05-30-2021 Absolute Eos # 0.17 [facility] Work Phone: Absolute Immature Granulocyte 0.05 [facility] Work Phone: Absolute Lymph # 2.36 [facility] Work Phone: Absolute Rapides # 0.75 [facility] Work Phone: Basophils (Bld) [#/Vol] 0.06 10*3/uL [facility] Work Phone: Basophils/100 WBC (Bld) 1 % 0 - 2 % M [employer] Phone: Differential Type NOT REPORTED [employer] Phone: Eosinophils/100 WBC (Bld) 2 % 1 - 4 % [employer] Phone: Hematocrit (Bld) [Volume fraction] 37.1 % 36.3 - 47.1 % [employer] Phone: Hemoglobin.gastrointest inal spec 1 Ql (Stl) 12.0 g/dL 11.9 - 15.1 g/dL [employer] Phone: Immature granulocytes/100 WBC (Bld) 1 % High 0 [employer] Phone: Interpretation and review of laboratory results Abnormal [employer] Phone: Lymphocytes/100 WBC (Bld) 22 % Low 24 - 43 % [employer] Phone: MCH (RBC) [Entitic mass] 27.8 pg 25.2 - 33.5 pg [employer] Phone: MCHC (RBC) [Mass/Vol] 32.3 g/dL 28.4 - 34.8 g/dL [employer] Phone: MCV (RBC) [Entitic vol] 86.1 fL 82.6 - 102.9 fL [employer] Phone: Monocytes/100 WBC (Bld) 7 % 3 - 12 % M [employer] Work Phone: NRBC Automated 0.0 0.0 per 100 WBC [employer] Phone: Platelet distribution width (Bld) [Ratio] 13.9 % 11.8 - 14.4 % [employer] Phone: Platelet Estimate NOT REPORTED [employer] Phone: Platelet mean volume (Bld) [Entitic vol] 10.3 fL 8.1 - 13.5 fL [employer] Phone: Platelets (Bld) [#/Vol] 316 10*3/uL [employer] Phone: RBC (Bld) [#/Vol] 4.31 10*6/uL 3.95 - 5.1 1 m/uL [employer] Phone: RBC (Bld) [#/Vol] NOT REPORTED [employer] Phone: Segmented neutrophils/100 WBC (Bld) 67 % High 36 - 65 % [employer] Phone: Segs Absolute 7.58 [employer] Work Phone: WBC (Bld) [#/Vol] 11.0 10*3/uL [employer] Phone: WBC (Bld) [#/Vol] NOT REPORTED [employer] Phone: [employer] Phone: Creatinine, SerumOrdered By: Vinicius Bullock on 05-30-2021 Creatinine [Mass/Vol] 1.22 mg/dL High 0.50 - 0.90 mg/dL [employer] Phone: GFR 55 mL/min Low >60 [employer] Phone: GFR Non- 45 mL/min Low >60 [employer] Phone: Interpretation and review of laboratory results Abnormal [employer] Phone: [employer] Phone: Hepatic Function PanelOrdere d By: Vinicius Bullock on 05-30-2021 Albumin [Mass/Vol] 4.4 g/dL 3.5 - 5.2 g/dL [employer] Phone: Albumin/Globulin [Mass ratio] 1.4 {ratio} [employer] Phone: ALP (Bld) [Catalytic activity/Vol] 98 U/L 35 - 104 U/L [employer] Phone: ALT [Catalytic activity/Vol] 15 U/L 5 - 33 U/L [employer] Phone: AST [Catalytic activity/Vol] 24 U/L <32 [employer] Phone: Bilirubin [Mass/Vol] mg/dL Low 0.3 - 1 .2 mg/dL [employer] Phone: Bilirubin, Indirect CANNOT BE CALCULATED 0.00 - 1.00 mg/dL [employer] Phone: Bilirubin.indirect [Mass/Vol] mg/dL <0.31 mg/dL [employer] Phone: Free PSA/Total PSA [Mass fraction] 7.5 g/dL 6.4 - 8.3 g/dL [employer] Phone: Globulin NOT REPORTED 1.5 - 3.8 g/dL [employer] Phone: Interpretation and review of laboratory results Abnormal [employer] Phone: [employer] Phone: Laboratory - Chemistry and C hemistry - challengeOrdered By: Vinicius Bullock on 05-30-2021 GFR/1.73 sq M.predicted MDRD (S/P/Bld) [Vol rate/Area] [employer] Phone: Comment on above: Average GFR for 50-5 9 years old: 93 mL/min/1.73sq m Chronic Kidney Disease: <60 mL/min/1.73sq m Kidney failure: <15 mL/min/1.73sq m eGFR calculated using average adult body mass. Additional eGFR calculator available at: http://www.[employer]/multiple_crcl_2012.htm Stage 1: Some kidney damage normal GFR Stage 2: Mild kidney damage GFR 60-89 Stage 3: Moderate kidney damage GFR 30-59 Stage 4: Severe kidney damage GFR 15-29 Stage 5: Severe kidney damage GFR <15 ESRD - chronic treatment by dialysis or transplant Sedimentation RateOrdered By : Vinicius Bullock on 05-30-2021 Interpretation and review of laboratory results Abnormal [employer] Phone: Sed Rate 25 mm High 0 - 20 mm [employer] Phone: [employer] Work Phone: CBC Auto DifferentialOrdered By: Vinicius Bullock on 04-04-2021 Absolute Eos # 0.09 [facility] [facility] Work Phone: Absolute Immature Granulocyte 0.04 [employer] Work Phone: Absolute Lymph # 2.65 [facility] [facility] Work Phone: Absolute Rapides # 0.80 [facility] Work Phone: Basophils (Bld) [#/Vol] 0.08 10*3/uL [employer] Phone: Basophils/100 WBC (Bld) 1 % 0 - 2 % [facility] Work Phone: Differential Type NOT REPORTED [employer] Phone: Eosinophils/100 WBC (Bld) 1 % 1 - 4 % [employer] Phone: Hematocrit (Bld) [Volume fraction] 40.0 % 36.3 - 47.1 % [employer] Phone: Hemoglobin.gastrointest inal spec 1 Ql (Stl) 12.9 g/dL 11.9 - 15.1 g/dL [employer] Phone: Immature granulocytes/100 WBC (Bld) 0 % 0 [employer] Phone: Lymphocytes/100 WBC (Bld) 25 % 24 - 43 % [employer] Phone: MCH (RBC) [Entitic mass] 27.4 pg 25.2 - 33.5 pg [employer] Phone: MCHC (RBC) [Mass/Vol] 32.3 g/dL 28.4 - 34.8 g/dL [employer] Phone: MCV (RBC) [Entitic vol] 84.9 fL 82.6 - 102.9 fL [employer] Phone: Monocytes/100 WBC (Bld) 8 % 3 - 12 % [facility] [employer] Phone: NRBC Automated 0.0 0.0 per 100 WBC [employer] Phone: Platelet distribution width (Bld) [Ratio] 14.2 % 11.8 - 14.4 % [employer] Phone: Platelet Estimate NOT REPORTED [employer] Phone: Platelet mean volume (Bld) [Entitic vol] 10.1 fL 8.1 - 13.5 fL [employer] Phone: Platelets (Bld) [#/Vol] 314 10*3/uL [employer] Phone: RBC (Bld) [#/Vol] 4.71 10*6/uL 3.95 - 5.1 1 m/uL [employer] Phone: RBC (Bld) [#/Vol] NOT REPORTED [employer] Phone: Segmented neutrophils/100 WBC (Bld) 65 % 36 - 65 % [employer] Phone: Segs Absolute 6.90 [employer] Work Phone: WBC (Bld) [#/Vol] 10.6 10*3/uL [employer] Phone: WBC (Bld) [#/Vol] NOT REPORTED [employer] Phone: [employer] Phone: Creatinine, SerumOrdered By: Vinicius Bullock on 04-04-2021 Creatinine [Mass/Vol] 1.47 mg/dL High 0.50 - 0.90 mg/dL [employer] Phone: GFR 45 mL/min Low >60 [employer] Phone: GFR Non- 37 mL/min Low >60 [employer] Phone: Interpretation and review of laboratory results Abnormal [employer] Phone: [employer] Phone: Hepatic Function PanelOrdere d By: Vinicius Bullock on 04-04-2021 Albumin [Mass/Vol] 4.2 g/dL 3.5 - 5.2 g/dL [employer] Phone: Albumin/Globulin [Mass ratio] 1.4 {ratio} [employer] Phone: ALP (Bld) [Catalytic activity/Vol] 95 U/L 35 - 104 U/L [employer] Phone: ALT [Catalytic activity/Vol] 14 U/L 5 - 33 U/L [employer] Phone: AST [Catalytic activity/Vol] 24 U/L <32 [employer] Phone: Bilirubin [Mass/Vol] mg/dL Low 0.3 - 1 .2 mg/dL [employer] Phone: Bilirubin, Indirect CANNOT BE CALCULATED 0.00 - 1.00 mg/dL [employer] Phone: Bilirubin.indirect [Mass/Vol] mg/dL <0.31 mg/dL [employer] Phone: Free PSA/Total PSA [Mass fraction] 7.2 g/dL 6.4 - 8.3 g/dL [employer] Phone: Globulin NOT REPORTED 1.5 - 3.8 g/dL [employer] Phone: Interpretation and review of laboratory results Abnormal [employer] Phone: [employer] Phone: Laboratory - Chemistry and C hemistry - challengeOrdered By: Vinicius Bullock on 04-04-2021 GFR/1.73 sq M.predicted MDRD (S/P/Bld) [Vol rate/Area] [employer] Phone: Comment on above: Average GFR for 50-5 9 years old: 93 mL/min/1.73sq m Chronic Kidney Disease: <60 mL/min/1.73sq m Kidney failure: <15 mL/min/1.73sq m eGFR calculated using average adult body mass. Additional eGFR calculator available at: http://www.[employer]/iSkoot_crcl_2012.htm Stage 1: Some kidney damage normal GFR Stage 2: Mild kidney damage GFR 60-89 Stage 3: Moderate kidney damage GFR 30-59 Stage 4: Severe kidney damage GFR 15-29 Stage 5: Severe kidney damage GFR <15 ESRD - chronic treatment by dialysis or transplant Sedimentation RateOrdered By : Vinicius Bullock on 04-04-2021 Sed Rate 13 mm 0 - 20 mm [employer] Phone: [employer] Phone: XR ABDOMEN (KUB) (SINGLE AP VIEW)Ordered By: Frank Joe on 02-21-2021 Unremarkable abdominal radiographs without acute abnormality. [employer] Phone: EXAMINATION: ONE SUPINE XRAY VIEW(S) OF THE ABDOMEN 02/21/2021 7:33 am COMPARISON: Abdominal radiographs performed 11/10/2019. HISTORY: ORDERING SYSTEM PROVIDED HISTORY: Urinary urgency FINDINGS: There is a nonobstructive bowel gas pattern. There is no intraperitoneal free air. There are no suspicious calcifications. Stable phleboliths are seen in the pelvis. There is no acute osseous abnormality. The surrounding soft tissues are unremarkable. [employer] Phone: Hector, pn Incoming Radiant Results From [employer]/Five minutes - 02/21/2021 8:40 AM EDT EXAMINATION: ONE [...] IMPRESSION: Unremarkable abdominal radiographs without acute abnormality. [employer] Phone: [employer] Work Phone: CBC Auto DifferentialOrdered By: Vinicius Bullock on 02-07-2021 Absolute Eos # 0.41 [facility] Work Phone: Absolute Immature Granulocyte 0.05 [employer] Phone: Absolute Lymph # 2.39 [facility] Work Phone: Absolute Rapides # 0.91 [facility] Work Phone: Basophils (Bld) [#/Vol] 0.08 10*3/uL [employer] Phone: Basophils/100 WBC (Bld) 1 % 0 - 2 % [facility] [employer] Phone: Differential Type NOT REPORTED [employer] Phone: Eosinophils/100 WBC (Bld) 4 % 1 - 4 % [employer] Phone: Hematocrit (Bld) [Volume fraction] 36.4 % 36.3 - 47.1 % [employer] Phone: Hemoglobin.gastrointest inal spec 1 Ql (Stl) 11.2 g/dL Low 11.9 - 15.1 g/dL [employer] Phone: Immature granulocytes/100 WBC (Bld) 1 % High 0 [employer] Phone: Interpretation and review of laboratory results Abnormal [employer] Phone: Lymphocytes/100 WBC (Bld) 26 % 24 - 43 % [employer] Phone: MCH (RBC) [Entitic mass] 27.0 pg 25.2 - 33.5 pg [employer] Phone: MCHC (RBC) [Mass/Vol] 30.8 g/dL 28.4 - 34.8 g/dL [employer] Phone: MCV (RBC) [Entitic vol] 87.7 fL 82.6 - 102.9 fL [employer] Phone: Monocytes/100 WBC (Bld) 10 % 3 - 12 % M [employer] Work Phone: NRBC Automated 0.0 0.0 per 100 WBC [employer] Phone: Platelet distribution width (Bld) [Ratio] 14.5 % High 11.8 - 14.4 % [employer] Phone: Platelet Estimate NOT REPORTED [employer] Phone: Platelet mean volume (Bld) [Entitic vol] 10.0 fL 8.1 - 13.5 fL [employer] Phone: Platelets (Bld) [#/Vol] 390 10*3/uL [employer] Phone: RBC (Bld) [#/Vol] 4.15 10*6/uL 3.95 - 5.1 1 m/uL [employer] Phone: RBC (Bld) [#/Vol] NOT REPORTED [employer] Phone: Segmented neutrophils/100 WBC (Bld) 58 % 36 - 65 % [employer] Phone: Segs Absolute 5.47 [employer] Work Phone: WBC (Bld) [#/Vol] 9.3 10*3/uL [employer] Phone: WBC (Bld) [#/Vol] NOT REPORTED [employer] Phone: [employer] Phone: Creatinine, SerumOrdered By: Vinicius Bullock on 02-07-2021 Creatinine [Mass/Vol] 1.25 mg/dL High 0.50 - 0.90 mg/dL [employer] Phone: GFR 54 mL/min Low >60 [employer] Phone: GFR Non- 44 mL/min Low >60 [employer] Phone: Interpretation and review of laboratory results Abnormal [employer] Phone: [employer] Phone: Hepatic Function PanelOrdere d By: Vinicius Bullock on 02-07-2021 Albumin [Mass/Vol] 4 g/dL 3.5 - 5.2 g/dL [employer] Phone: Albumin/Globulin [Mass ratio] 1.1 {ratio} [employer] Phone: ALP (Bld) [Catalytic activity/Vol] 95 U/L 35 - 104 U/L [employer] Phone: ALT [Catalytic activity/Vol] 13 U/L 5 - 33 U/L [employer] Phone: AST [Catalytic activity/Vol] 22 U/L <32 [employer] Phone: Bilirubin [Mass/Vol] mg/dL Low 0.3 - 1 .2 mg/dL [employer] Phone: Bilirubin, Indirect CANNOT BE CALCULATED 0.00 - 1.00 mg/dL [employer] Phone: Bilirubin.indirect [Mass/Vol] mg/dL <0.31 mg/dL [employer] Phone: Free PSA/Total PSA [Mass fraction] 7.5 g/dL 6.4 - 8.3 g/dL [employer] Phone: Globulin NOT REPORTED 1.5 - 3.8 g/dL [employer] Phone: Interpretation and review of laboratory results Abnormal [employer] Phone: [employer] Work Phone: Laboratory - Chemistry and C hemistry - challengeOrdered By: Vinicius Bullock on 02-07-2021 GFR/1.73 sq M.predicted MDRD (S/P/Bld) [Vol rate/Area] [employer] Phone: Comment on above: Average GFR for 50-5 9 years old: 93 mL/min/1.73sq m Chronic Kidney Disease: <60 mL/min/1.73sq m Kidney failure: <15 mL/min/1.73sq m eGFR calculated using average adult body mass. Additional eGFR calculator available at: http://www.[employer]/multiple_crcl_2012.htm Stage 1: Some kidney damage normal GFR Stage 2: Mild kidney damage GFR 60-89 Stage 3: Moderate kidney damage GFR 30-59 Stage 4: Severe kidney damage GFR 15-29 Stage 5: Severe kidney damage GFR <15 ESRD - chronic treatment by dialysis or transplant Sedimentation RateOrdered By : Vinicius Bullock on 02-07-2021 Interpretation and review of laboratory results Abnormal [employer] Phone: Sed Rate 62 mm High 0 - 20 mm [employer] Phone: [employer] Work Phone: CBC Auto DifferentialOrdered By: Vinicius Bullock on 12-13-2020 Absolute Eos # 0.30 [facility] Work Phone: Absolute Immature Granulocyte 0.08 [employer] Work Phone: Absolute Lymph # 2.93 [employer] [facility] Work Phone: Absolute Rapides # 1.04 [facility] Work Phone: Basophils (Bld) [#/Vol] 0.08 10*3/uL [employer] Work Phone: Basophils/100 WBC (Bld) 1 % 0 - 2 % M [employer] Work Phone: Differential Type NOT REPORTED [employer] Phone: Eosinophils/100 WBC (Bld) 2 % 1 - 4 % [employer] Phone: Hematocrit (Bld) [Volume fraction] 37.6 % 36.3 - 47.1 % [employer] Phone: Hemoglobin.gastrointest inal spec 1 Ql (Stl) 12.0 g/dL 11.9 - 15.1 g/dL [employer] Phone: Immature granulocytes/100 WBC (Bld) 1 % High 0 [employer] Phone: Interpretation and review of laboratory results Abnormal [employer] Phone: Lymphocytes/100 WBC (Bld) 21 % Low 24 - 43 % [employer] Phone: MCH (RBC) [Entitic mass] 27.8 pg 25.2 - 33.5 pg [employer] Phone: MCHC (RBC) [Mass/Vol] 31.9 g/dL 28.4 - 34.8 g/dL [employer] Phone: MCV (RBC) [Entitic vol] 87.0 fL 82.6 - 102.9 fL [employer] Phone: Monocytes/100 WBC (Bld) 7 % 3 - 12 % M [employer] Work Phone: NRBC Automated 0.0 0.0 per 100 WBC [employer] Phone: Platelet distribution width (Bld) [Ratio] 13.1 % 11.8 - 14.4 % [employer] Phone: Platelet Estimate NOT REPORTED [employer] Phone: Platelet mean volume (Bld) [Entitic vol] 9.7 fL 8.1 - 13.5 fL [employer] Work Phone: Platelets (Bld) [#/Vol] 345 10*3/uL [employer] Phone: RBC (Bld) [#/Vol] 4.32 10*6/uL 3.95 - 5.1 1 m/uL [employer] Phone: RBC (Bld) [#/Vol] NOT REPORTED [employer] Work Phone: Segmented neutrophils/100 WBC (Bld) 68 % High 36 - 65 % [employer] Work Phone: Segs Absolute 9.87 High [employer] Work Phone: WBC (Bld) [#/Vol] 14.3 10*3/uL High [employer] Work Phone: WBC (Bld) [#/Vol] NOT REPORTED [employer] Phone: [employer] Work Phone: Creatinine, SerumOrdered By: Vinicius Bullock on 12-13-2020 Creatinine [Mass/Vol] 1.48 mg/dL High 0.50 - 0.90 mg/dL [employer] Phone: GFR 44 mL/min Low >60 [employer] Phone: GFR Non- 36 mL/min Low >60 [employer] Phone: Interpretation and review of laboratory results Abnormal [employer] Phone: [employer] Phone: Hepatic Function PanelOrdere d By: Vinicius Bullock on 12-13-2020 Albumin [Mass/Vol] 4.2 g/dL 3.5 - 5.2 g/dL [employer] Phone: Albumin/Globulin [Mass ratio] 1.1 {ratio} [employer] Phone: ALP (Bld) [Catalytic activity/Vol] 86 U/L 35 - 104 U/L [employer] Phone: ALT [Catalytic activity/Vol] 12 U/L 5 - 33 U/L [employer] Phone: AST [Catalytic activity/Vol] 21 U/L <32 [employer] Phone: Bilirubin [Mass/Vol] mg/dL Low 0.3 - 1 .2 mg/dL [employer] Phone: Bilirubin, Indirect CANNOT BE CALCULATED 0.00 - 1.00 mg/dL [employer] Phone: Bilirubin.indirect [Mass/Vol] mg/dL <0.31 mg/dL [employer] Phone: Free PSA/Total PSA [Mass fraction] 7.9 g/dL 6.4 - 8.3 g/dL [employer] Phone: Globulin NOT REPORTED 1.5 - 3.8 g/dL [employer] Phone: Interpretation and review of laboratory results Abnormal [employer] Phone: [employer] Phone: Laboratory - Chemistry and C hemistry - challengeOrdered By: Vinicius Bullock on 12-13-2020 GFR/1.73 sq M.predicted MDRD (S/P/Bld) [Vol rate/Area] [employer] Phone: Comment on above: Average GFR for 50-5 9 years old: 93 mL/min/1.73sq m Chronic Kidney Disease: <60 mL/min/1.73sq m Kidney failure: <15 mL/min/1.73sq m eGFR calculated using average adult body mass. Additional eGFR calculator available at: http://www.[employer]/multiple_crcl_2012.htm Stage 1: Some kidney damage normal GFR Stage 2: Mild kidney damage GFR 60-89 Stage 3: Moderate kidney damage GFR 30-59 Stage 4: Severe kidney damage GFR 15-29 Stage 5: Severe kidney damage GFR <15 ESRD - chronic treatment by dialysis or transplant Sedimentation RateOrdered By : Vinicius Bullock on 12-13-2020 Interpretation and review of laboratory results Abnormal [employer] Phone: Sed Rate 54 mm High 0 - 20 mm [employer] Phone: [employer] Phone: CBC Auto Differentialon 09-26 Basophils (Bld) [#/Vol] 0.06 10*3/uL [employer] Phone: Basophils/100 WBC (Bld) 1 % 0 - 2 % M [employer] Phone: Differential Type NOT REPORTED [employer] Phone: Eosinophils (Bld) [#/Vol] 0.33 10*3/uL [employer] Phone: Eosinophils/100 WBC (Bld) 4 % 1 - 4 % [employer] Phone: Erythrocyte distribution width (RBC) [Ratio] 13.3 % 11.8 - 14.4 % [employer] Phone: Hematocrit (Bld) [Volume fraction] 39.0 % 36.3 - 47.1 % [employer] Phone: Hemoglobin (Bld) [Mass/Vol] 12.3 g/dL 11.9 - 15.1 g/dL [employer] Phone: Immature granulocytes (Bld) [#/Vol] 0 % 0 [employer] Phone: Immature granulocytes (Bld) [#/Vol] 0.04 10*3/uL [employer] Phone: Lymphocytes (Bld) [#/Vol] 2.45 10*3/uL [employer] Phone: Lymphocytes/100 WBC (Bld) 27 % 24 - 43 % [employer] Phone: MCH (RBC) [Entitic mass] 27.8 pg 25.2 - 33.5 pg [facility] [employer] Phone: MCHC (RBC) [Mass/Vol] 31.5 g/dL 28.4 - 34.8 g/dL [facility] [employer] Phone: MCV (RBC) [Entitic vol] 88.2 fL 82.6 - 102.9 fL [facility] Phone: Monocytes (Bld) [#/Vol] 0.79 10*3/uL [facility] [employer] Work Phone: Monocytes/100 WBC (Bld) 9 % 3 - 12 % [facility] Work Phone: Platelet mean volume (Bld) [Entitic vol] 10.4 fL 8.1 - 13.5 fL [facility] Phone: Platelets (Bld) [#/Vol] 284 10*3/uL [facility] [employer] Work Phone: Platelets (Bld) [#/Vol] NOT REPORTED [facility] [employer] Phone: RBC (Bld) [#/Vol] 4.42 10*6/uL 3.95 - 5.1 1 m/uL [facility] [employer] Phone: RBC morphology finding Nom (Bld) NOT REPORTED [facility] [employer] Phone: Segmented neutrophils/100 WBC (Bld) 59 % 36 - 65 % [facility] Work Phone: Segs Absolute 5.38 [facility] Work Phone: WBC (Bld) [#/Vol] 9.1 10*3/uL [facility] [employer] Work Phone: WBC (Bld) [#/Vol] 0.0 10*3/uL 0.0 per 10 0 WBC [facility] [employer] Work Phone: WBC Morphology NOT REPORTED [employer] Work Phone: Creatinine, Serumon 10-14-19 Creatinine [Mass/Vol] 1.45 mg/dL High 0.50 - 0.90 mg/dL [employer] Phone: GFR 45 mL/min Low >60 [employer] Phone: GFR Non- 37 mL/min Low >60 [employer] Phone: Interpretation and review of laboratory results Abnormal [employer] Phone: Hepatic Function Panelon Albumin [Mass/Vol] 4.5 g/dL 3.5 - 5.2 g/dL [employer] Phone: Albumin/Globulin [Mass ratio] 1.3 {ratio} [employer] Phone: ALP [Catalytic activity/Vol] 93 U/L 35 - 104 U/L [employer] Phone: ALT [Catalytic activity/Vol] 12 U/L 5 - 33 U/L [employer] Phone: AST [Catalytic activity/Vol] 21 U/L <32 [employer] Phone: Bilirubin Ql (U) <0.10 Low 0.3 - 1.2 mg/dL [employer] Phone: Bilirubin, Indirect CANNOT BE CALCULATED 0.00 - 1.00 mg/dL [employer] Phone: Bilirubin.direct [Mass/Vol] mg/dL <0.31 mg/dL [employer] Phone: Globulin (S) [Mass/Vol] NOT REPORTED 1.5 - 3.8 g/dL [employer] Phone: Interpretation and review of laboratory results Abnormal [employer] Phone: Protein [Mass/Vol] 7.9 g/dL 6.4 - 8.3 g/dL [employer] Phone: Metabolic Panelon 10-13-2020 GFR/1.73 sq M predicted among non-blacks MDRD (S/P/Bld) [Vol rate/Area] [employer] Phone: Comment on above: Stage 1: Some [...] body mass. Additional eGFR calculator available at: http://www.[employer]/multiple_crcl_2012.htm Sedimentation Rateon 021 Interpretation and review of laboratory results Abnormal [employer] Phone: Sed Rate 25 mm High 0 - 20 mm [employer] Phone: XR ABDOMEN (KUB) (SINGLE AP VIEW)on 11-10-2019 No definite renal stones are seen. There is a 2-3 mm calcification in the pelvis on the left felt more likely to reflect a phlebolith although a distal left ureteral stone is not entirely excluded. Consider CT as clinically indicated. [employer] [place] EXAMINATION: ONE SUPINE XRAY VIEW(S) OF [...] intraperitoneal free air. No acute bony abnormalities. [employer] [place] H[place], [employer] Incoming Radiant Results From [employer]/Five minutes - 11/10/2019 8:02 AM EDT EXAMINATION: ONE [...] entirely excluded. Consider CT as clinically indicated. [facility], [place] FINGER LEFT MIN 2 [facility] 03-29 FINGER LEFT MIN 2 [facility] [address] [place] [address] Patient Name: SYLVIA GARAY : 1965Sex: FAge: Race: OtherMRN: [id number]. Location: OUTPPatient Status: OVisit #: [id number] Date: 04/15/2017 7:10:00 AMCompleted Date: 04/15/2017 08:31 AMRequesting Provider: OREN LOPES Attending Provider: OREN LOPES Report Copy To: Signs & Symptoms: LT THUMB IP FUSIONHistory: LT THUMB IP FUSIONComments: LT THUMB IP FUSIONExam: FINGER LEFT MIN 2 VWSAccession #: [id number] FIN SEAN LEFT MIN 2 VWS 04/15/2017 8:31 AM EDT SIGNS AND SYMPTOMS: LT THUMB IP FUSION lt thumb IP fusion fluoro time 22 secs TECHNIQUE: Intraprocedural fluoroscopy without radiologist supervision or interpretation. Electronically signed by:Mervin Rios M.D.. Transcribed by: [email or web address], User Resident: Electronically Signed by: MERVIN RIOS @ 04/15/2017 10:35 AM Normal [facility] Comment on above: Order Comment: LT TH UMB IP FUSION Operative Reporton 7 Operative Report MR#: [id number] [facility] Pt. Name: Sylvia Garay Room #: 0C Discharge Date: Birthdate: 1965 OPERATIVE REPORTDATE OF SURGERY: 04/15/2017SURGEON: Oren Lopes M.D.PREOPERATIVE DIAGNOSIS: Degenerative osteoarthritis, left thumb IP joint.POSTOPERATIVE DIAGNOSIS: Degenerative osteoarthritis, left thumb IPjoint.PROCEDURE: IP joint fusion, left thumb.GEOMETRY PROFESSOR: Cain Jean M.D.ANESTHESIA: Regional with an axillary block.INDICATION FOR SURGERY: Sylvia is a 51-year-old female who [facility] with complaints of pain and worsening deformityin her left thumb. Clinically, she has about 16-99-mollgu ulnar deviationdeformity at the IP joint of [...] prepared andthe thumb was straight with good kswf-vb-gypi contact. We took a guidewirefrom the Arth[employer] [...] extensor mechanism was reapproximated with a couple qwtanatw-cf-wrkrm sutures of 4-0 Vicryl. The skin with a buried 4-0 Vicryland then 5-0 Novafil. Sterile dressing of Xeroform gauze, 4x4, fluffs,Araceli, and an William bandage were applied. The tourniquet was released. Allsponge and needle counts were correct at time of closure.Electronicall y Signed by:Oren Lopes M.D. 04/16/2017 12:36 P Jasmin Lopes M.D.Date Dict: 04/15/2017/10:23 Lovely/Oren Lopes M.D.Date Trans: 04/15/2017 10:48 A/[id number]: Josefa Martinez M.D. [employer] [address] [facility] [address] Normal [facility] POC GLUCOSE LABon 04-15-2017 Glucose mass conc 100 mg/dL Normal 70-100 [facility] Comment on above: Performed By: #### [id number] ####[address] FINGER LEFT MIN 2 VWSon 01-26 FINGER LEFT MIN 2 [facility]WS [facility] [address] [place] [address] Patient Name: SYLVIA GARAY : 1965Sex: FAge: Race: OtherMRN: [id number]. Location: 84Patient Status: OVisit #: [id number] Date: 02/13/2017 9:25:00 AMCompleted Date: 02/13/2017 09:28 AMRequesting Provider: BOB BROWN Attending Provider: BOB BROWN Report Copy To: Signs & Symptoms: S63.125A Dislocation of unsp interphaln joint of left thumb, init [id number]: AthenaComments: , , L thumb , , , Ordering Provider - BOB BROWN , Rendering Provider - CHRISTOPHER BROWN , Exam: FINGER LEFT MIN 2 VWSAccession #: [id number] FIN SEAN LEFT MIN 2 VWS 02/13/2017 [...] change. Electronically signed by:Mervin Epstein. Transcribed by: [email or web address], User Resident: Electronically Signed by: MERVIN EPSTEIN @ 02/13/2017 10:45 AM Normal [facility] Comment on above: Order Comment: , , L thumb , , , Ordering Provider - CHRISTOPHER BROWN , Rendering Provider - CHRISTOPHER BROWN , Vital Signs Date Time Vital Sign Value Performing Clinician Facility 08-31-2024 08:53-0500 Body height 154.9 cm Josefa Martinez MD Work Phone: [facility] 08-31-2024 08:53-0500 Body mass index (BMI) [Ratio] 31.93 kg/m2 Josefa Martinez MD Work Phone: [facility] 08-31-2024 08:53-0500 Body weight 76.66 kg Josefa Martinez MD Work Phone: [facility] 08-31-2024 08:53-0500 Diastolic blood pressure 82 mm[Hg] Josefa Martinez MD Work Phone: [facility] 08-31-2024 08:53-0500 Heart rate 64 /min Josefa Martinez MD Work Phone: [facility] 08-31-2024 08:53-0500 SaO2% (BldA) [Mass fraction] 98 % Josefa Martinez MD Work Phone: [facility] 08-31-2024 08:53-0500 Systolic blood pressure 118 mm[Hg] Josefa Martinez MD Work Phone: [facility] 12-16-2023 09:22-0400 Body height 152.4 cm [facility] 12-16-2023 09:22-0400 Body mass index (BMI) [Ratio] 32.4 kg/m2 [facility] 12-16-2023 09:22-0400 Body temperature 97.2 [degF] [facility] 12-16-2023 09:22-0400 Body weight 75.29 kg [facility] 12-16-2023 09:22-0400 Diastolic blood pressure 81 mm[Hg] [facility] 12-16-2023 09:22-0400 Heart rate 73 /min [facility] 12-16-2023 09:22-0400 Respiratory rate 20 /min [facility] 12-16-2023 09:22-0400 SaO2% (BldA) [Mass fraction] 99 % [facility] 12-16-2023 09:22-0400 Systolic blood pressure 113 mm[Hg] [facility] 12-19-2021 09:30-0400 Body height 152.4 cm Candi George Other [employer] Other 12-19-2021 09:30-0400 Body mass index (BMI) [Ratio] 34.37 kg/m2 Candi George Other [employer] Other 12-19-2021 09:30-0400 Body temperature 96.9 [degF] Candi George Other [employer] Other 12-19-2021 09:30-0400 Body weight 79.83 kg Candi George Other [employer] Other 12-19-2021 09:30-0400 Diastolic blood pressure 72 mm[Hg] Candi George Other [employer] Other 12-19-2021 09:30-0400 Respiratory rate 20 /min Candi George Other [employer] Other 12-19-2021 09:30-0400 SaO2% (BldA) [Mass fraction] 99 % Candi George Other [employer] Other 12-19-2021 09:30-0400 Systolic blood pressure 120 mm[Hg] Candi George Other [employer] Other 10-13-2020 14:25-0400 BP Diastolic 89 mm[Hg] Zakiya Ellis [employer] Work Phone: 10-13-2020 14:25-0400 BP Systolic 135 mm[Hg] Zakiya Knight [employer] Work Phone: 10-13-2020 14:25-0400 Pulse (Heart Rate) 81 /min Zakiya Knight [employer] Work Phone: 10-13-2020 14:25-0400 Respiratory Rate 16 /min Zakiya Knight [employer] Work Phone: 10-13-2020 14:00-0400 Pulse Oximetry 98 % Zakiya Knight [employer] Work Phone: 10-13-2020 11:130400 BMI (Body Mass Index) 34.76 kg/m2 Zakiya Madrigal [employer] Work Phone: 10-13-2020 11:13-0400 Body Temperature 98.01 [degF] Zakiya Knight [employer] Work Phone: 10-13-2020 11:13-0400 Body weight 80.74 kg Zakiya Knight [employer] Work Phone: Encounters Encounter Date Encounter Type Care Provider Facility Start: 08-16-2025 ambulatory Frank Garcia ty:[facility] Start: 11-23-2024 End: 11-23-2024 Clinisync Result Encounter Generic External Data Provider [facility] Unsolicited Start: 11-23-2024 End: 11-23-2024 Clinisync Result Encounter Generic External Data Provider [facility] External Department Unsolicited Start: 11-06-2024 End: 11-06-2024 ambulatory FLORY Do [facility] Start: 09-22-2024 End: 09-22-2024 Clinisync Result Encounter Generic External Data Provider [facility] External Department Unsolicited Start: 09-22-2024 End: 09-22-2024 Clinisync Result Encounter Generic External Data Provider [...] 40-64yrs Josefa Martinez MD Work Phone: [facility] Comment on above: Rheumatoid arthritis involving [...] Available Start: 08-14-2024 End: 08-14-2024 ambulatory Frank JOE Facility:[facility] Start: 08-07-2024 End: 08-07-2024 Clinisync Result Encounter Generic External Data Provider [facility] External Department Unsolicited Start: 08-07-2024 End: 08-07-2024 Clinisync Result Encounter Generic External Data Provider [facility] External Department Unsolicited Start: 07-14-2024 End: 07-14-2024 [facility] Start: 05-25-2024 End: 05-25-2024 Clinisync Result Encounter [...] Start: 03-05-2024 End: 03-05-2024 ambulatory [facility] Start: 03-04-2024 ambulatory FLORY Do [facility] Start: 02-07-2024 End: 02-07-2024 ambulatory Frank JOE Facility:[facility] Start: 12-26-2023 End: 12-26-2023 ambulatory FL[facility] Start: 12-18-2023 End: 12-18-2023 ambulatory [facility] Start: 12-16-2023 End: 12-16-2023 ambulatory [facility] Work Phone: Start: 12-16-2023 End: 12-16-2023 Patient encounter procedure [facility] Work Phone: Start: 12-13-2023 End: 12-16-2023 ambulatory [facility]RE[facility] Start: 12-04-2023 End: 12-04-2023 ambulatory [facility] Start: 08-06-2023 Patient encounter status Generic Pro vider [facility] Start: 11-06-2022 End: 11-07-[address] VINICIUS BULLOCK Facility:[facility] Start: 09-11-2022 End: 09-12-[address] VINICIUS BULLOCK Facility:[facility] Start: 08-13-2022 End: 08-13-2022 ambulatory Josefa Martinez Facility:[facility] Start: 08-13-2022 End: 08-13-2022 ambulatory MD Josefa Martinez Work Phone: [facility] Work Phone: Start: 08-13-2022 End: 08-13-2022 Patient encounter procedure MD Josefa Martinez Work Phone: [facility] [place] Work Phone: Start: 07-25-2022 End: 07-25-2022 ambulatory Josefa Martinez Facility:[facility] Start: 07-25-2022 End: 07-25-2022 ambulatory MD Josefa Martinez Work Phone: [facility] Work Phone: Start: 07-25-2022 End: 07-25-2022 Patient encounter procedure MD Josfea Martinez Work Phone: [facility]-Electrodiagnostics Work Phone: Start: 06-11-2022 End: 06-11-2022 Subsequent hospital visit by physician Josefa Martinez MD Work Phone: [facility] Start: 04-11-2022 End: 04-11-2022 Subsequent hospital visit by physician Josefa Martinez MD Work Phone: [facility] Start: 02-15-2022 End: 02-15-2022 Subsequent hospital visit by physician Josefa Martinez MD Work Phone: [facility] Start: 12-19-2021 End: 12-19-2021 ambulatory Candi George Other [facility] [employer] Other Start: 12-19-2021 Office outpatient vi sit 15 minutes Candi George [facility] [...] by physician Apple Manriquez Dr Room 2 [facility] Comment on above: Urinary urgency Start: 02-07-2021 End: 02-07-2021 Subsequent hospital visit by physician Josefa Martinez Work Phone: [facility] Start: 12-13-2020 End: 12-13-2020 Subsequent hospital visit by physician Josefa Martinez Work Phone: [facility] Start: 10-13-2020 End: 10-13-2020 Emergency department patient visit Zakiya Knight Work Phone: [facility] ED Comment on above: Fall, initial encoun ter (Primary Dx); Abrasion of scalp, initial encounter Start: 10-13-2020 End: 10-13-2020 Subsequent [facility] Start: 11-10-2019 End: 11-12-2019 Subsequent hospital visit by physician Apple Manriquez Dr Room 4 [facility] Radiology Comment on above: Kidney stone Start: 01-27-2018 End: 01-28-2018 Ambulatory DEFAULT PHYSICIAN Facility:[facility] Start: 04-25-2017 End: 04-26-2017 Ambulatory DEFAULT PHYSICIAN Facility:[facility] Start: 04-15-2017 End: 04-16-2017 Ambulatory [facility] Facility:[facility] Start: 02-13-2017 End: 02-14-2017 Ambulatory BOB BROCKPORT Facility:[facility] Procedures Date Procedure Procedure Detail Performing Clinician Start: 11-23-2024 ALL CBC WITH AUTO DIFF Generic External Data Provider Start: 09-22-2024 ALL CBC WITH AUTO DIFF Generic External Data Provider Start: 09-21-2024 [facility] LIVER PANEL Generi c External Data Provider [...] Generic Provider Start: 08-13-2022 Plain chest X-ray Ru Goodwin Work Phone: Start: 06-11-2022 Creatinine blood Vinicius [...] Start: 04-15-2017 ANESTH LOWER ARM SURGERY TENNILLE MARCOS Start: 04-15-2017 FUSION OF FINGER JOINT OREN LOPES Plan of Treatment Date Care Activity Detail Author Start: 08-31-2028 DTaP/Tdap/Td vaccine (4 - Td or Tdap) DTaP/Tdap/Td vaccine (4 - Td or Tdap) [facility] Start: 08-31-2028 DTaP/Tdap/Td vaccine (4 - Td) DTaP/Tdap/Td vaccine (4 - Td) [facility] [place], [place] Start: 08-19-2026 Screening for malign ant neoplasm of colon [facility] Start: 08-13-2026 Screening for malign ant neoplasm of cervix [facility] Start: 09-11-2025 Screening for malign ant neoplasm of breast Mammogram [facility] Start: 03-29-2025 Influenza vaccination Influenz a Vaccine (Season Ended) [facility] Start: 08-31-2024 End: 08-31-2025 Comprehensive metabolic 2000 panel - Serum or Plasma Comprehensive metabolic panel Lab Routine Hyperlipidemia, unspecified hyperlipidemia type (CMS/HCC) Wellness examination Deficiency anemia Expected: 08/31/2024 (Approximate), Expires: 08/31/2025 [facility] Comment on above: Expected: 08/31/2024 (Approximate), Expires: 08/31/2025 Start: 08-31-2024 End: 10-29-2025 DBT Breast - bilateral screening Bilateral screening mammogram with tomosynthesis Imaging Routine Wellness examination Encounter for screening mammogram for malignant neoplasm of breast Expected: 08/31/2024 (Approximate), Expires: 10/29/2025 [facility] Comment on above: Expected: 08/31/2024 (Approximate), Expires: 10/29/2025 Start: 08-31-2024 End: 08-31-2025 Lipid 1996 panel - Serum or Plasma Lipid panel Lab Routine Hyperlipidemia, unspecified hyperlipidemia type (CMS/HCC) Wellness examination Expected: 08/31/2024 (Approximate), Expires: 08/31/2025 [facility] Work Phone: Comment on above: Expected: 08/31/2024 (Approximate), Expires: 08/31/2025 Start: 08-14-2024 Screening for malign ant neoplasm of breast Mammogram [facility] Start: 03-29-2024 Influenza vaccination Influenza Vacc ine (#1) [facility] Start: 10-03-2022 Creatinine measurement Creatinine [facility] [employer] Start: 05-30-2022 Creatinine measurement Creatinine mo [facility] Start: 04-04-2022 Creatinine measurement Creatinine mo [facility] Work Phone: Start: 03-29-2022 Influenza vaccination [facility] (# [facility] Start: 02-26-2022 Influenza vaccination Flu vaccine (# 1) [facility] Start: 02-07-2022 Creatinine measurement Creatinine mo [employer] Work Phone: Start: 12-13-2021 Creatinine measurement Creatinine mo [facility] [employer] Work Phone: Start: 10-13-2021 Creatinine measurement Creatinine mo [facility] [employer] Work Phone: Start: 10-11-2021 COVID-19 Vaccine (4 - Booster for Caden series) COVID-19 Vaccine (4 - Booster for Caden series) [facility] [employer] Start: 03-29-2021 Influenza vaccination [facility] [employer] Start: 12-22-2020 COVID-19 Vaccine (2 - Booster for Caden series) COVID-19 Vaccine (2 - Booster for Caden series) [facility] [employer] Start: 03-29-2020 Influenza vaccination [place], [place] Start: 10-06-2017 Lipid panel [facility] Start: 10-06-2017 Lipid screen Lipid screen [place], [place] Start: 10-23-2016 Creatinine monitoring Creatinine mon itoring [place], [place] Start: 10-23-2016 Potassium [Moles/volume] in Serum or Plasma Potassium [facility] [employer] Start: 10-23-2016 [facility] Start: 03-24-2016 Shingles Vaccine (2 of 3) Shingles Vaccine (2 of 3) [facility] [employer] Start: 2014 Breast cancer screen Breast cancer s creen [place], [place] Start: 2014 Colon cancer screen colonoscopy Colon cancer screen colonoscopy [place], [place] Start: 2014 Screening for malign ant neoplasm of breast Breast cancer screen [facility] [employer] Start: 2014 Screening for malign ant neoplasm of colon Colon cancer screen colonoscopy [facility] [employer] Work Phone: Start: 08-30-2012 Screening for malign ant neoplasm of colon [facility] [employer] Start: 08-31-2011 Screening for malign ant neoplasm of colon Colorectal Cancer Screen [facility] [employer] Start: 2009 Screening for malign ant neoplasm of colon [facility] [employer] Start: 1994 Screening for malign ant neoplasm of cervix [facility] Start: 1985 Cervical cancer screen Cervical canc er screen [place], [place] Start: 1985 Screening for malign ant neoplasm of cervix [facility] [employer] Start: 1982 Hepatitis C screening Hepatitis C sc reen [facility] Start: 1980 COVID-19 Vaccine (1) COVID-19 Vaccin e (1) [facility] [employer] Work Phone: Start: 1979 HIV screen HIV screen [facility] [place] Start: 1979 HIV screening HIV screen [facility] Start: 1976 COVID-19 Vaccine (1) COVID-19 Vaccin e (1) [facility] [employer] Work Phone: Start: 1976 Depression Screen Depression Screen [facility] Start: 1964 Hepatitis C screen Hepatitis C scree n [place], [place] Start: 1964 Hepatitis C screening Hepatitis C [facility] Start: 1964 [facility] malign [facility] Immunizations Immunization Date Immunization Notes Care Provider Fa cility 05-22-2022 influenza, injectabl e, quadrivalent, preservative free Generic Provider [facility] 05-22-2022 influenza virus vaccine, unspecified formulation Generic Provider [facility] 08-16-2021 COVID-19 Moderna Candi Peters n Other [facility] 05-22-2021 influenza, injectabl e, quadrivalent, preservative free Generic Provider [facility] 10-27-2020 SARS-CoV-2, Unspecified Generic [facility] COVID-19 Vaccine Caden - Documentation Purposes Only Candi George Other [facility] 05-20-2020 influenza, injectabl e, quadrivalent, preservative free Generic Provider [facility] 08-31-2018 tetanus toxoid, redu huong diphtheria toxoid, and acellular pertussis vaccine, adsorbed Generic Provider [facility] 05-14-2018 influenza, injectabl e, quadrivalent, contains preservative Generic Provider [facility] 10-12-2016 pneumococcal conjuga te vaccine, 13 valent Generic Provider [facility] 10-12-2016 tetanus toxoid, redu huong diphtheria toxoid, and acellular pertussis vaccine, adsorbed Generic Provider [facility] 05-10-2016 influenza, injectabl e, quadrivalent, contains preservative Generic Provider [facility] 01-28-2016 zoster vaccine, live Generic Provide r [facility] 10-19-2015 tetanus toxoid, redu huong diphtheria toxoid, and acellular pertussis vaccine, adsorbed Generic Provider [facility] Payers Date Payer Category Payer Private Health Insurance [facility] [id number] 2022 Unknown 2022 Self-pay [id number] 2019 Unknown [employer]ON[employer] xxxxxxxxx 2019-Present [phone] [address] [place] [address] xxxxxxxxx [id number] 2015 Unknown [id number] 1964 Unknown [id number]. [id number] 1964 Unknown [id number] [id number]. 2.593 1964 Unknown [id number] [id number]. 2.173 1964 Unknown [id number] [id number]. 2.727 1964 Unknown [id number] 2.16.840.1.124049.3.579. 2.727 1964 Unknown [id number] [id number]. 2.727 1964 Unknown [id number] [id number]. 2.1259 1959 Unknown [id number] Unknown [id number] [id number]. 2.531 Unknown [id number]. 2.531 Social History Date Type Detail Facility Start: 01-29-2013 End: 08-31-2024 Tobacco [facility] status [facility] Start: 01-29-2013 End: 05-20-2022 Alcohol intake Current non-drinker of alcohol (finding) [place], [place] Start: 1965 Sex Assigned At Not on file M [place] Start: 10-13-2020 End: 08-31-2024 Tobacco use and exposure Never used [employer] Phone: Start: 05-10-2022 End: 05-20-2022 Exposure to SARS-CoV-2 (event) Not sure [employer] Phone: Start: 08-13-2023 End: 08-30-2024 Sex Assigned At [facility] End: 11-26-2008 History of tobacco use [facility] Start: 1965 Sex Assigned At Female F [facility] End: 11-26-2008 History of tobacco use Cigarette Smoker [facility] Start: 12-19-2023 End: 08-31-2024 Alcoholic beverage intake Current drinker of alcohol (finding) [facility] Start: 08-13-2023 End: 08-30-2024 History of Social function [facility] Start: 08-05-2023 Tobacco Comment Last smoke: 1-5 year s [facility] Start: 08-05-2023 Alcohol Comment Points: 1, Interpretation: Negative [facility] How often do you nee d to have someone help you when you read instructions, pamphlets, or other written material from your doctor or pharmacy [SILS] Never [facility] Do you belong to any clubs or organizations such as baptist groups, unions, fraternal or athletic groups, or [...] Only a little [facility] (I/We) worried whecalvin er (my/our) food would run out before (I/we) got money to buy more. Never true [facility] How often do you nee d to have someone help you when you read instructions, pamphlets, or other written material from your doctor or pharmacy [SILS] Never [facility] Clinical Notes 12-19-2021 to 11-06-2024 Josefa Martinez MD - 08/31/2024 9:03 AM Bogdan Martinez MD - 08/31/2024 9:02 AM Bogdan Martinez MD - 08/31/2024 9:02 AM Bogdan Martinez MD - 08/31/2024 9:02 AM EST Note Date & Type Note Facility 11-06-2024 Note Attestation signed by Flory Pruitt MD [...] documentation from me. (Dr. Finch) Subjective Sylvia Moon is a 59 y.o. year [...] (CMS/HCC) Chest pain Coronary artery disease involving [place] coronary artery of [place] heart without angina pectoris Deficiency anemia Essential [...] Take 81 mg by mouth in the (more content not included)... [facility] 08-31-2024 History of Present illness Narrative Associated Problem(s): Atrial fibrillation (CMS/HCC) [...] moderate TR, LA is mildly enlarged Hypertension (CMS/HCC) Kidney stone on right side Primary pulmonary [...] Procedure: Novasure; Disease: DUB OTHER SURGICAL HISTORY 2010 Bottom lower lip resection OTHER SURGICAL HISTORY [...] follow-ups on file. 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 General instructions ??? Take modp-xmm-wfckyll and prescription medicines only as told by [...] you drink, and whe (more content not included)...[facility]12-17-2024 NoteSubjective Sylvia Moon is a 59 y.o. [...] (CMS/HCC) Chest pain Coronary artery disease involving [place] coronary artery of [place] heart without angina pectoris Deficiency anemia Essential [...] Rfl: 3 macitentan (Opsumit) (more content not included)...[facility]08-08-2024 NoteSubjective Sylvia Moon is a 58 y.o. year old female patient being seen for pulmonary arterial hypertension. Patient relatively doing well. She denied chest pain or chest discomfort. She has stable dyspnea on exertion with minimal dizziness but no palpitations. Patient Active Problem List Diagnosis Arthropathy Atrial fibrillation (CMS/HCC) Chest pain Coronary artery disease involving [place] coronary artery of [place] heart without angina pectoris Deficiency anemia Essential [...] GLUCOSE 101 (H) 10/03/2022 (more content not included)...[facility]07-12-2024 NotePatient Education Obstetrics and Gynecology Overactive Bladder, [...] health care provider. General instructions ? Take nljk-zaf-mxyuibw and prescription medicines only as told by [...] help your health care (more content not included)...[facility]07-03-2024 NotePrior authorization was completed for patient 01/20/2024, for medication Abrisentan. The request has been approved from 01/28/2024-07/30/2024. Patient must that this is considered a Specialty medication, therefore patients plan requires that the medication be ordered through [facility] Phone . Will contact patient and inform her that this medication has been approved and that the specialty pharmacy will need to be contacted.[facility]06-27-2024 NoteSpoke to regarding PA and that it is excluded from patients plan. Dr. Pruitt asked to send in Ambrisentan 5 mg [facility]24 NotePrior Authorization has been completed for this patient for the medication Opsumit 10 mg. Determination is pending will update once an outcome has been receivedUnSouthview Medical Center05-29-2024 NoteReceived update on Opsumit for this patient. Medication is not able to be approved because the medication is excluded from patients pharmacy benefit plan. However Generic Ambrisentan or Generic Bosentan are on the Patient pharmacy benefit plan. Because the denial is based on on the patient's pharmacy beneifit plan and not medical necessity , an appeal will not be available.[facility]05-22-2024 NotePatient: Sylvia Moon Procedure Information Date/Time: 12/18/23 0900 Procedure: Right heart cath [facility]: [facility] (Cath) Providers: Maximilian [...] discussed with fellow and attending. Additional Equipment [facility]Un[facility]05-08-2024 Note Attestation signed by Flory Pruitt MD [...] (CMS/HCC) Chest pain Coronary artery disease involving [place] coronary artery of [place] heart without angina pectoris Deficiency anemia Essential [...] on physical exam H (more content not included)...[facility]05-24-2022 Evaluation note* Encounter Date Diagnosis Assessment Notes Treatment Notes Treatment Clinical Notes November, Pulmonary fibrosis, unspecified (ICD-10 - J84.10) November, Systemic sclerosis, unspecified (ICD-10 - M34.9) November, 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) [employer] Other Evaluation note* Diagnosis Urinary urgency Urgency of urination documented in this encounter [employer] Phone: evaluation note* Diagnosis Pulmonary fibrosis (HCC) Postinflammatory pulmonary fibrosis documented in this encounter [employer] Phone: evaluation noteNo assessment information available [facility] Work Phone: Evaluation note* Diagnosis Onset Date Resolution Status History of tobacco abuse acu te 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 acute Pulmonary fibrosis, unspecified acute 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 [employer] Other Summary Purpose Family History Relationship Condition Age at Onset Recorded Date/T saleem Not Specified Diabetes mellitus Unknown brother Malignant neoplasm Unknown father Hypertension Unknown Not Specified Hypertension Unknown Advance Directives Documents on File Type Date Recorded Patient Environmental Protection Economist Expl anation Advance Directives and Living Will Power of Tone Artist Apprentice Documents on File Type Date Recorded Patient Environmental Protection Economist Expl anation ACP-Advance Directive ACP-Power of Tone Artist Apprentice Documents on File Type Date Recorded Patient Environmental Protection Economist Expl anation ACP-Advance Directive ACP-Power of Tone Artist Apprentice Advance Directive Response Recorded Date/ Time Advance [...] sent through Care Everywhere. * Head Injury (Welsh) documented in this encounter Chief Complaint and [...] section and content) DATE CREATED AUTHOR 01/31/2018 [facility] DATE CREATED AUTHOR AUTHOR'S ORGANIZ ATION 09/01/2022 [facility] DATE CREATED AUTHOR AUTHOR'S ORGANIZ ATION 11/12/2022 [facility] DATE CREATED AUTHOR AUTHOR'S ORGANIZ ATION [facility] DATE CREATED AUTHOR AUTHOR'S ORGANIZ ATION 08/17/2024 [facility] DATE CREATED AUTHOR AUTHOR'S ORGANIZ ATION 09/01/2024 [facility] DATE CREATED AUTHOR AUTHOR'S ORGANIZ ATION 09/04/2024 [facility] DATE CREATED AUTHOR AUTHOR'S ORGANIZ ATION 11/09/2024 [facility] Reason for Visit (unrecogniz ed section and content) Reason Comments Fall pt states she was wa lking in the 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 Pt denies LOC, states I saw stars Specialty Diagnoses / Procedures Referred By Contac t Referred To Contact Radiology Diagnoses Pulmonary fibrosis (HCC) Procedures CT CHEST HIGH RESOLUTION CT CHEST WO CONTRAST Candi George MD Referral ID Status Reason Start Date Expiration Date Visits Re quested Visits Authorized [id number] Closed 11/06/2021 12/05/2021 1 1 Reason Comments Annual Exam Care Teams (unrecognized sec tion and content) Sizing Machine Operator Relationship Specialty Start Date End Date Josefa Martinez MD [address] [place] [id number] PCP - General 10/03/12 Sizing Machine Operator Relationship Specialty Start Date End Date Josefa Martinez MD [address] [place] [address] PCP - General 10/03/12 Sizing Machine Operator Relationship Specialty Start Date End Date Josefa Martinez MD [address] [place] [address] PCP - General 10/03/12 Team Status: Inactive Member Role Status Derrick Martinez MD Primary Care Provider, Attending Pro vider Active Team Status: Active Member Role Status Derrick Martinez MD Primary Care Provider Active Team Status: Inactive Member Role Status Derrick Martinez MD Primary Care Provider Active Giacomo Beintez DPM Attending Provider Active Team Status: Inactive Member Role Status Derrick Martinez MD Primary Care Provider Active S tart: December 16, 2023 End: December 16, 2023 Dilan Chapa DO Attending Provider Active St art: December 16, 2023 End: December 16, 2023 Sizing Machine Operator Relationship Specialty Start Date End Date Josefa Martinez MD [address] [facility] [address] [place] [address] PCP - General Family Medicine 12/04/22 Sizing Machine Operator Relationship Specialty Start Date End Date Josefa Martinez MD [address] [facility] [address] [place] [address] PCP - General Family Medicine 12/04/22 Sizing Machine Operator Relationship Specialty Start Date End Date Josefa Martinez MD [address] [facility] [address] [place] [address] PCP - General Family Medicine 12/04/22 Sizing Machine Operator Relationship Specialty Start Date End Date Josefa Martinez MD [address] [facility] [address] [place] [address] PCP - General [facility] 12/04/22 Sizing Machine Operator Relationship Specialty Start Date End Date Josefa Martinez MD [address] [place] [address] PCP - General Family Medicine 12/04/22 Goals [...] BE BASED ON THE PRIMARY CLINICAL RECORDS. [employer] [facility]. provides no warranty or guarantee of the accuracy or completeness of information in this document.
== END 2024-12-24 08:16 | disposition home or self-care (01) ==
LOC: CT 08:16
PROVIDERS: PCP Family Medicine
DX: J84.89 Other specified interstitial pulmonary diseases (principal); M35.9 Systemic involvement of connective tissue, unspecified; J84.10 Pulmonary fibrosis, unspecified
CPT/HCPCS: 71250

== ENCOUNTER 2025-02-01 07:34 | Outpatient (OUT) | payer OTHER, SELFPAY ==
--- OUTSIDE RECORDS SUMMARY | 2024-11-06 08:20 | XMS_ITS ---
Author Name Auto Generated Organization OHIP Care Team Providers Care Jacquard Loom Card Changer Name Role Phone FLORY PRUITT Attending Unavailable FLORY PRUITT Referring Unavailable EDMOND, FLORY Do Referring Unavailable EDMOND, FLORY Do Attending Unavailable EDMOND, FLORY Do Referring Unavailable EDMOND, FLORY Do Attending Unavailable EDMOND, FLORY Do Referring Unavailable JOSEFA MARTINEZ Attending Unavailable Frank JOE Attending Unavailable Frank JOE Attending Unavailable PROBLEMS DATE TYPE CONDITION / CODE ATTENDING STATUS [facility] 11/06/2024 Admitting Diagnosis Dyspnea, unspecified / R06.00(ICD-10) NA Active [facility] 07/14/2024 Admitting Diagnosis Follow-up / [id number]() FLORY PRUITT Active [facility] 12/12/2023 Admitting Diagnosis Pulmonary hypertension, unspecified / I27.20(ICD-10) NA Active [facility] PROCEDURES No Procedure Records Found RESULTS PROGRESS Observed: 11/06/2024 9:00 AM Status: COMPLETED Source: [facility] Attestation signed by Flory Pruitt MD at 11/06/2024 9:48 AM By using the attestations below, the signing clinician agrees that I have read and verify that the documentation has been personally reviewed by me and ensure that the documentation accurately reflects the encounter. GC: I personally saw this patient on the day of the encounter, performed the blanc portion(s) of the service and participated in the management and confirm the resident's documentation. Please note there may be an additional personal documentation from me. (Dr. Finch) Subjective Sylvia Zavala is a 59 y.o. year old female patient being seen for pulmonary arterial hypertension. She presented to follow up today, doing very well, denied having any chest pain or shortness of breath, reported slight shortness of breath with significant exertion, she is able to do activities of daily living without any limitations, she is able to walk without limitations, she gets slight short of breath while walking uphill or when carrying heavy stuff, no orthopnea or PND. No lower leg swelling, no other complaints. Patient Active Problem List Diagnosis Arthropathy Atrial fibrillation (CMS/HCC) Chest pain Coronary artery disease involving point hope ira coronary artery of point hope ira heart without angina pectoris Deficiency anemia Essential hypertension Hyperlipidemia Pulmonary HTN (CMS/HCC) Systemic scleroses (CMS/HCC) Shortness of breath Pulmonary arterial hypertension (CMS/HCC) Acquired hallux valgus Age-related osteoporosis without current pathological fracture Chronic ulcer of left foot with fat layer exposed (CMS/HCC) Contracture, left ankle Idiopathic gout ILD (interstitial lung disease) (CMS/HCC) Myalgia Myopathy Peripheral venous insufficiency Pulmonary fibrosis (CMS/HCC) Raynaud disease Reflux gastritis Rheumatoid arthritis in remission (CMS/HCC) Stage 3a chronic kidney disease ([facility]) Wellness examination Family History Problem Relation Name Age of Onset Hypertension Mother Hypertension Father Social History Tobacco Use Smoking status: Former Types: Cigarettes Smokeless tobacco: Never Vaping Use Vaping status: Never Used Substance Use Topics Alcohol use: Not Currently Drug use: Not Currently Review of Systems Constitutional: Negative for fever, night sweats and weight gain. HENT: Negative for congestion and ear pain. Cardiovascular: Negative for chest pain and dyspnea on exertion. Respiratory: Negative for cough and shortness of breath. Gastrointestinal: Negative for abdominal pain, nausea and vomiting. Neurological: Negative for dizziness and light-headedness. Objective Visit Vitals BP 104/70 (BP Location: Right arm, Patient Position: Sitting, BP Cuff Size: Adult) Pulse 65 Resp 14 Ht 1.524 m (5') Wt 79.8 kg (176 lb) SpO2 97% BMI 34.37 kg/m??? OB Status Postmenopausal Smoking Status Former BSA 1.84 m??? Physical Exam Constitutional: General: She is not in acute distress. Appearance: Normal appearance. She is not ill-appearing. HENT: Head: Normocephalic and atraumatic. Cardiovascular: Rate and Rhythm: Normal rate and regular rhythm. Heart sounds: No murmur heard. Comments: Loud P2 Pulmonary: Breath sounds: No wheezing or rales. Abdominal: Palpations: Abdomen is soft. Tenderness: There is no abdominal tenderness. Musculoskeletal: Right lower leg: No edema. Left lower leg: No edema. Skin: General: Skin is warm and dry. Findings: No erythema or rash. Neurological: Mental Status: She is alert and oriented to person, place, and time. Mental status is at baseline. Physical Exam 07/14/2024 9:16 AM BP 136/80 [...] or split., Disp: 30 tablet, Rfl: 3 hydroxychloroquine (Plaquenil) 200 mg tablet, Take 200 mg by mouth as directed by study team. Takes 1 tablet oral every other day alternating with 1 tablet twice a day every other day, Disp: , Rfl: macitentan (Opsumit) 10 mg tablet, Take 10 mg by mouth in the morning. (Patient not taking: Reported on 12/18/2023), Disp: 90 tablet, Rfl: 3 tadalafil (Cialis) 20 mg tablet, Take 1 [...] CALCIUM 9.9 10/03/2022 Imaging and other tests [facility] 12/18/2023 Hemodynamic Data: RA: 4 RV: 67/3, 9 PA: 64/23 (40) PCWP: 9 CO: 4.58 CI: 2.63 O2 Sat: PA sat: 71%, AO sat: 100% BP: 135/77 (98) TP PVR: 6.8 Wood units SVR: 1642 Metric units Impression/Findings: Normal left filling pressures. Normal right filling pressures. Severe pulmonary hypertension. Low normal cardiac output and cardiac index. Uncontrolled systemic hypertension. Severely elevated pulmonary vascular resistance. Findings are consistent with pre-capillary pulmonary hypertension. Echo 12/03/2023 CPX 12/26/2023 FINDINGS: 1. Maximal treadmill test is limited by dyspnea. 2. Duration of exercise 7:00 minutes utilizing the ramping protocol. 3. Heart rate response was normal (Patient was taking B-joie and Ca++ Joie) at a low (RPP<200) cardiac work rate. 4. Systolic Blood Pressure response was reduced. Diastolic Blood Pressure response was normal . 5. Peak Oxygen Consumption (VO2) was 14.2 ml/O2/kg/min or 4.1 METS. Functional capacity was 71% of predicted peak VO2, which is low. Assessment/Plan #pulmonary hypertension WHO FC III, PAH due schleroderma. Euvolemic on physical exam She is currently only on tadalafil 40 mg daily, could not afford Macitentan or Letairis. We will attempt in gettinf her Letairis covered to start it on 10 mg daily. Transthoracic echocardiogram today showed EF 55%, RVSP 65 mmHg which improved from 81 mmHg on previous echocardiogram #coronary atherosclerosis No chest pain or chest discomfort Moderate single-vessel disease on medical therapy Continue on aspirin 81 mg daily and Lipitor 40 mg daily, in addition to Coreg 6.25 mg bid # Hypertension Blood pressure well controlled, on current regimen, continue on lisinopril, procardia, and coreg. #systemic sclerosis per rheumatology#rheumatoid arthritis per rheumatology OFFICE VISIT Observed: 11/06/2024 9:00 AM Status: COMPLETED Source: [facility] [id number] [place],Early Provider Department Center 11/06/2024 325-FLORY PRUITT Family History Problem Relation Age of Onset Hypertension Mother Hypertension Father Family Status - Relation Status Age at Mother Father Level of Service:59079 CT OFFICE/OUTPATIENT ESTABLISHED MOD MDM 30 MIN () ABSTRACT Observed: 11/06/2024 12:00 AM Status: COMPLETED Source: [facility] [id number] [place],Earlynn Provider Department Center 11/06/2024 3244-BENNY CERVANTES Family History Problem Relation Age of Onset Hypertension Mother Hypertension Father Family Status - Relation Status Age at Mother Father ABSTRACT Observed: 11/06/2024 12:00 AM Status: COMPLETED Source: [facility] [id number] [place],Earlynne Provider Department Center 11/06/2024 [id number] BUSTOS Family History Problem Relation Age of Onset Hypertension Mother Hypertension Father Family Status - Relation Status Age at Mother Father ABSTRACT Observed: 11/06/2024 12:00 AM Status: COMPLETED Source: [facility] [id number] [place],Early Provider Department [place] 11/06/2024 [id number] BUSTOS Family History Problem Relation Age of Onset Hypertension Mother Hypertension Father Family Status - Relation Status Age at Mother Father ABSTRACT Observed: 11/06/2024 12:00 AM Status: COMPLETED Source: [facility] [id number] [place], Provider Department [place] 11/06/2024 3244-BENNY CERVANTES Family History Problem Relation Age of Onset Hypertension Mother Hypertension Father Family Status - Relation Status Age at Mother Father ABSTRACT Observed: 11/06/2024 12:00 AM Status: COMPLETED Source: [facility] [id number] [place], Provider Department [place] 11/06/2024 [id number] BUSTOS Family History Problem Relation Age of Onset Hypertension Mother Hypertension Father Family Status - Relation Status Age at Mother Father ABSTRACT Observed: 11/06/2024 12:00 AM Status: COMPLETED Source: [facility] [id number] [place],Early Provider Department [place] 11/06/2024 [id number] BUSTOS Family History Problem Relation Age of Onset Hypertension Mother Hypertension Father Family Status - Relation Status Age at Mother Father LIPID PANEL, STANDARD Collected: 08/31/2024 9:30 AM Status: F Source: [employer] Order Comment: FASTING:YES FASTING: YES TYPE CODE TESTS RESULT OUT OF RANGE REFERENCE UNITS LAB [id number] CHOLESTEROL, TOTAL 174 Normal <200 mg/dL LAB [id number] HDL CHOLESTEROL 80 Normal > OR = 50 mg/dL LAB [id number] TRIGLYCERIDES 81 Normal <150 mg/dL LAB [id number] LDL-CHOLESTEROL 78 Normal mg/dL (calc) Result Comment: Reference ra nge: <100 Desirable range <100 mg/dL for primary prevention; <70 mg/dL for patients with CHD or diabetic patients with > or = 2 CHD risk factors. LDL-C is now calculated using the Oracio calculation, which is a validated novel method providing better accuracy than the Friedewald equation in the estimation of LDL-C. Oern JEAN-BAPTISTE et al. [place]. 2013;310(19): 6041-9124 (http://education.DotNetNuke/faq/MUO323) LAB [id number] CHOL/HDLC RATIO 2.2 Normal <5.0 (calc) LAB [id number] NON HDL CHOLESTEROL 94 Normal <130 mg/dL (calc) Result Comment: For patients with diabetes plus 1 major ASCVD risk factor, treating to a non-HDL-C goal of <100 mg/dL (LDL-C of <70 mg/dL) is considered a therapeutic option. Performed By: #### 7600, 102 31 #### [facility] [address], [address] [place] [address] Mobile Engineer: Jomar Pham MD COMPREHENSIVE METABOLIC PANEL Collected : 08/31/2024 9:30 AM Status: F Source: [employer] TYPE CODE TESTS RESULT OUT OF RANGE REFERENCE UNITS LAB [id number] GLUCOSE 82 Normal 65-99 mg/dL Result Comment: Fasting reference interval LAB [id number] UREA NITROGEN (BUN) 17 Normal 7-25 mg/dL LAB [id number] CREATININE 0.88 Normal 0.50-1.05 mg/dL LAB [id number] EGFR 75 Normal > OR = 60 mL/min/1 .73m2 LAB [id number] BUN/CREATININE RATIO SEE NOTE: 6-22 (calc) Result Comment: Not Reported : BUN and Creatinine are within reference range. LAB [id number] SODIUM 141 Normal 135-146 mmol/L LAB [id number] POTASSIUM 3.4 Low 3.5-5.3 mmol/L LAB [id number] CHLORIDE 105 Normal 98-110 mmol/L LAB [id number] CARBON DIOXIDE 25 Normal 20-32 mmol/L LAB [id number] CALCIUM 9.8 Normal 8.6-10.4 mg/dL LAB [id number] PROTEIN, TOTAL 7.0 Normal 6.1-8.1 g/dL LAB [id number] ALBUMIN 4.6 Normal 3.6-5.1 g/dL LAB [id number] GLOBULIN 2.4 Normal 1.9-3.7 g/dL (calc) LAB [id number] ALBUMIN/GLOBUL IN RATIO 1.9 Normal 1.0-2.5 (calc) LAB [id number] BILIRUBIN, TOTAL 0.4 Normal 0.2-1.2 mg/dL LAB [id number] ALKALINE PHOSPHATASE 97 Normal 37-153 U/L LAB [id number] AST 22 Normal 10-35 U/L LAB [id number] ALT 11 Normal 6-29 U/L Performed By: #### 7600, 102 31 #### [facility] [address] [facility], [address] [place] [address] Mobile Engineer: Jomar Pham MD AMBULATORY VISIT SUMMARY Observed: 08/14 9:16 AM Status: F Source: [facility] Ambulatory Visit Summary MICHELLENegarKEITH NATHALIARASHAADSam Chapman :1965 Visit Date:08/14/2024 Ambulatory Visit Instructions Your Diagnosis OAB (overactive bladder) Incomplete bladder emptying Personal history of kidney stones Your Care Team Attending Physician - Frank [...] Frank JOE MD Where: [facility] [address] [place] [address] [place] [address]- You Need to Schedule the Following Appointments Follow Up with JUNIOR JIMENEZ, REYES Connor When: Where: [address] [facility] [place] [address]- Medications What How Much When Instructions Changed tolterodine (tolterodine 4 mg Cap-ER) 1 Capsules By Mouth As Directed Take 2 tabs in the AM and 1 tab in the evening. Pickup at [facility] Unchanged aspirin (aspirin 81 mg Chew Tab) [...] physician if questions or concerns Pharmacy Information [facility]: [address] [place], [place] [id number] [phone] Allergies Augmentin (Rash) amoxicillin (Rash) Problems Ongoing [...] health care provider. General instructions ??? Take ixgd-rqe-kjzamut and prescription medicines only as told by [...] urinate. This will help your health care provider monitor your condition. ??? Keep all follow-up visits. This is important. Contact a health care provider if: ??? You have a fever or chills. ??? Your symptoms do not get better with treatment. ??? Your pain and discomfort get worse. ??? You have more frequent urges to urinate. Get help right away if: ??? You are not able to control your bladder. Summary ??? Overactive bladder refers to a condition in which a person has a sudden and frequent need to urinate. ??? Several conditions may lead to an overactive bladder. ??? Treatment for overactive bladder depends on the cause and severity of your condition. ??? Making lifestyle changes, doing Kegel exercises, keeping a log, and taking medicines can help with this condition. This information is not intended to replace advice given to you by your health care provider. Make sure you discuss any questions you have with your health care provider. Document Revised: 04/03/2021 Document Reviewed: 04/03/2021 [email or web address] Patient Education ??? 2023 Brevity. UROLOGY OFFICE/CLINIC NOTE Observed: 8:59 AM Status: F Source: [facility] Urology Office/Clinic Note Chief Complaint OAB HPI [...] history of urinary calculi) Last stone episode 2018. KUB 02/21/21 - negative. Renal US 01/28/23 - negative for stones and hydro. -Continue increased water intake and add clear soda Follow-up With When Contact Information JUNIOR JIMENEZ, Frank Lea, [address] [place] [address]- Additional Instructions: 1 year Patient Education Overactive [...] 08/16/2021 Recorded 2023-02-04: TPVALL influenza virus vaccine, inactivated 05/22/2021 Recorded SARS-CoV-2 (COVID-19) Ad26 vaccine 11/15/2020 Recorded Deonte and Deonte SARS-CoV-2 (COVID-19) Ad26 vaccine 10/14/2020 Recorded 2023-02-04: TPV50 influenza virus vaccine, inactivated 05/20/2020 Recorded diphtheria/pertussis, acel/tetanus adult 08/31/2018 Recorded diphtheria/pertussis, acel/tetanus adult 10/12/2016 Recorded pneumococcal 13-valent vaccine 10/12/2016 Recorded influenza virus vaccine, inactivated 05/10/2016 Recorded zoster vaccine live 01/28/2016 Recorded diphtheria/pertussis, acel/tetanus adult 10/19/2015 Recorded Lab Results Ambulatory Point of Care Results Bilirubin Urine Dipstick: Negative (08/14/24 08:24:00) Blood Urine Dipstick: Negative (08/14/24 08:24:00) Glucose Urine Dipstick: Negative (08/14/24 08:24:00) Ketones Urine Dipstick: Negative (08/14/24 08:24:00) Leukocytes Urine Dipstick: Negative (08/14/24 08:24:00) Nitrite Urine Dipstick: Negative (08/14/24 08:24:00) Protein Urine Dipstick: Negative (08/14/24 08:24:00) Specific [place] Urine Dipstick: 1.020 (08/14/24 08:24:00) Urine Appearance Urine Dipstick: Clear (08/14/24 08:24:00) Urine Color Urine Dipstick: Yellow (08/14/24 08:24:00) Urobilinogen Urine Dipstick: Normal 0.2-1 EU/dl (08/14/24 08:24:00) pH Urine Dipstick: 5.5 (08/14/24 08:24:00) Result Comment: Electronical ly Signed By: Frank JOE MD\.br\Date and Time Signed: 08/14/24 09:01 EST\.br\Electronically Co-Signed By: Kayli Garrido.wild\Date and Time Co-Signed: 08/14/24 09:00 EST PATIENT EDUCATION Observed: 08/14/2024 8:59 AM Status: F Source: [facility] Patient Education Obstetrics and Gynecology Overactive Bladder, [...] health care provider. General instructions ??? Take qkxs-ckz-vdagkip and prescription medicines only as told by [...] urinate. This will help your health care provider monitor your condition. ??? Keep all follow-up visits. This is important. Contact a health care provider if: ??? You have a fever or chills. ??? Your symptoms do not get better with treatment. ??? Your pain and discomfort get worse. ??? You have more frequent urges to urinate. Get help right away if: ??? You are not able to control your bladder. Summary ??? Overactive bladder refers to a condition in which a person has a sudden and frequent need to urinate. ??? Several conditions may lead to an overactive bladder. ??? Treatment for overactive bladder depends on the cause and severity of your condition. ??? Making lifestyle changes, doing Kegel exercises, keeping a log, and taking medicines can help with this condition. This information is not intended to replace advice given to you by your health care provider. Make sure you discuss any questions you have with your health care provider. Document Revised: 04/03/2021 Document Reviewed: 04/03/2021 [email or web address] Patient Education ? 2023 Brevity. PROGRESS Observed: 07/14/2024 9:20 AM Status: COMPLETED Source: [facility] Roberta Zavala is a 59 y.o. year old [...] (CMS/HCC) Chest pain Coronary artery disease involving point hope ira coronary artery of point hope ira heart without angina pectoris Deficiency anemia Essential [...] remission (CMS/HCC) Stage 3a chronic kidney disease ([facility]) Wellness examination Family History Problem Relation Name [...] Disp: 30 tablet, Rfl: 3 macitentan (Opsumit) 10 mg tablet, Take 10 mg by mouth in the morning. (Patient not taking: Reported on 12/18/2023), Disp: 90 tablet, Rfl: 3 tadalafil (Cialis) 20 mg tablet, Take 1 [...] CALCIUM 9.9 10/03/2022 Imaging and other tests [facility] 12/18/2023 Hemodynamic Data: RA: 4 RV: 67/3, 9 PA: 64/23 (40) PCWP: 9 CO: 4.58 CI: 2.63 O2 Sat: PA sat: 71%, AO sat: 100% BP: 135/77 (98) TP PVR: 6.8 Wood units SVR: 1642 Metric units Impression/Findings: Normal left filling pressures. Normal right filling pressures. Severe pulmonary hypertension. Low normal cardiac output and cardiac index. Uncontrolled systemic hypertension. Severely elevated pulmonary vascular resistance. Findings are consistent with pre-capillary pulmonary hypertension. Echo 12/03/2023 CPX 12/26/2023 FINDINGS: 1. Maximal treadmill test is limited by dyspnea. 2. Duration of exercise 7:00 minutes utilizing the ramping protocol. 3. Heart rate response was normal (Patient was taking B-joie and Ca++ Joie) at a low (RPP<200) cardiac work rate. 4. Systolic Blood Pressure response was reduced. Diastolic Blood Pressure response was normal . 5. Peak Oxygen Consumption (VO2) was 14.2 ml/O2/kg/min or 4.1 METS. Functional capacity was 71% of predicted peak VO2, which is low. Assessment/Plan #pulmonary hypertension WHO FC III, PAH due schleroderma. Euvolemic on physical exam She was just started on tadalafil. We finally able to go get approval for Lateris, and denied Macitantan. I will see her in 3 to 4 months, I will get an echocardiogram at that time and hopefully her parameter will be improved by that time on her 2 medication. #coronary atherosclerosis No chest pain or chest discomfort Moderate single-vessel disease on medical therapy # Hypertension At target, continue current medication. #systemic sclerosis per rheumatology#rheumatoid arthritis per rheumatology#lung disease with systemic sclerosis per rheumatology OFFICE VISIT Observed: 07/14/2024 9:20 AM Status: COMPLETED Source: [facility] [id number] Sylvia Zavala F Date Provider Department Center 07/14/2024 FLORY [facility] Lucia Rust Family History Problem Relation Age of Onset Hypertension Mother Hypertension Father Family Status - Relation Status Age at Mother Father Level of Service:80274 CT OFFICE/OUTPATIENT ESTABLISHED MOD MDM 30 MIN Reason for Visit and Comments: Follow-up [[id number]] PROGRESS Observed: 03/05/2024 11:00 AM Status: COMPLETED Source: [facility] Subjective Sylvia Zavala is a 58 y.o. year old female patient being seen for pulmonary arterial hypertension. Patient relatively doing well. She denied chest pain or chest discomfort. She has stable dyspnea on exertion with minimal dizziness but no palpitations. Patient Active Problem List Diagnosis Arthropathy Atrial fibrillation (CMS/HCC) Chest pain Coronary artery disease involving point hope ira coronary artery of point hope ira heart without angina pectoris Deficiency anemia Essential [...] CALCIUM 9.9 10/03/2022 Imaging and other tests [facility] 12/18/2023 Hemodynamic Data: RA: 4 RV: 67/3, 9 PA: 64/23 (40) PCWP: 9 CO: 4.58 CI: 2.63 O2 Sat: PA sat: 71%, AO sat: 100% BP: 135/77 (98) TP PVR: 6.8 Wood units SVR: 1642 Metric units Impression/Findings: Normal left filling pressures. Normal right filling pressures. Severe pulmonary hypertension. Low normal cardiac output and cardiac index. Uncontrolled systemic hypertension. Severely elevated pulmonary vascular resistance. Findings are consistent with pre-capillary pulmonary hypertension. Echo 12/03/2023 CPX 12/26/2023 FINDINGS: 1. Maximal treadmill test is limited by dyspnea. 2. Duration of exercise 7:00 minutes utilizing the ramping protocol. 3. Heart rate response was normal (Patient was taking B-joie and Ca++ Joie) at a low (RPP<200) cardiac work rate. 4. Systolic Blood Pressure response was reduced. Diastolic Blood Pressure response was normal . 5. Peak Oxygen Consumption (VO2) was 14.2 ml/O2/kg/min or 4.1 METS. Functional capacity was 71% of predicted peak VO2, which is low. Assessment/Plan 1.pulmonary hypertension NYHA FC II, PAH due schleroderma. Euvolemic on physical exam Her most recent right heart cath showed significant and severe pulmonary hypertension with Fluvax. 6.8 and normal wedge. We finally able to go get approval for Lateris, and denied Macitantan. Will work on assistance for her to get her medication and I would like to ensure that she also gets tadalafil. 2.coronary atherosclerosis No anginal pain Moderate single-vessel disease on medical therapy 3.systemic sclerosis per rheumatology4.rheumatoid arthritis per rheumatology5.lung disease with systemic sclerosis per rheumatology 29 Observed: 03/05/2024 11:00 AM Status: COMPLETED Source: [facility] Addended by: BIBIANA HURLEY n: 03/05/2024 01:13 PM Modules accepted: Orders OFFICE VISIT Observed: 03/05/2024 11:00 AM Status: COMPLETED Source: [facility] [id number] Sylvia Zavala F Date Provider Department Center 03/05/2024 325-FLORY PRUITT [facility] Family History Problem Relation Age of Onset Hypertension Mother Hypertension Father Family Status - Relation Status Age at Mother Father Level of Service:16171 CT OFFICE/OUTPATIENT ESTABLISHED MOD MDM 30 MIN UROLOGY OFFICE/CLINIC NOTE Observed: 06/2024 8:40 AM Status: F Source: [facility] Urology Office/Clinic Note Chief Complaint OAB HPI [...] Information JUNIOR JIMENEZ, Frank Lea, [address] [place] [address]- Additional Instructions: 6 mos w/ PVR Patient [...] 08/16/2021 Recorded 2023-02-04: TPVALL influenza virus vaccine, inactivated 05/22/2021 Recorded SARS-CoV-2 (COVID-19) Ad26 vaccine 11/15/2020 Recorded Deonte and Deonte SARS-CoV-2 (COVID-19) Ad26 vaccine 10/14/2020 Recorded 2023-02-04: TPV50 influenza virus vaccine, inactivated 05/20/2020 Recorded diphtheria/pertussis, acel/tetanus adult 08/31/2018 Recorded diphtheria/pertussis, acel/tetanus adult 10/12/2016 Recorded pneumococcal 13-valent vaccine 10/12/2016 Recorded influenza virus vaccine, inactivated 05/10/2016 Recorded zoster vaccine live 01/28/2016 Recorded diphtheria/pertussis, acel/tetanus adult 10/19/2015 Recorded Lab Results Ambulatory Point of Care Results Bilirubin Urine Dipstick: Negative (02/07/24 08:19:00) Blood Urine Dipstick: Negative (02/07/24 08:19:00) Glucose Urine Dipstick: Negative (02/07/24 08:19:00) Ketones Urine Dipstick: Negative (02/07/24 08:19:00) Leukocytes Urine Dipstick: Negative (02/07/24 08:19:00) Nitrite Urine Dipstick: Negative (02/07/24 08:19:00) Protein Urine Dipstick: Negative (02/07/24 08:19:00) Specific [place] Urine Dipstick: >=1.030 (02/07/24 08:19:00) Urine Appearance Urine Dipstick: Clear (02/07/24 08:19:00) Urine Color Urine Dipstick: Yellow (02/07/24 08:19:00) Urobilinogen Urine Dipstick: Normal 0.2-1 EU/dl (02/07/24 08:19:00) pH Urine Dipstick: 6 (02/07/24 08:19:00) Result Comment: Electronical ly Signed By: Frank JOE MD.br\Date and Time Signed: 02/07/24 08:44 EDT\.br\Electronically Co-Signed By: Kayli Garrido\.br\Date and Time Co-Signed: 02/07/24 08:42 EDT PATIENT EDUCATION Observed: 02/07/2024 8:40 AM Status: C Source: [facility] Patient Education Obstetrics and Gynecology Overactive Bladder, [...] multiple sclerosis (MS). ? Eat or drink alcohol, spicy food, [...] health care provider. General instructions ? Take wxoo-wvp-nuxfzio and prescription medicines only as told by [...] urinate. This will help your health care provider monitor your condition. ? Keep all follow-up visits. This is important. Contact a health care provider if: ? You have a fever or chills. ? Your symptoms do not get better with treatment. ? Your pain and discomfort get worse. ? You have more frequent urges to urinate. Get help right away if: ? You are not able to control your bladder. Summary ? Overactive bladder refers to a condition in which a person has a sudden and frequent need to urinate. ? Several conditions may lead to an overactive bladder. ? Treatment for overactive bladder depends on the cause and severity of your condition. ? Making lifestyle changes, doing Kegel exercises, keeping a log, and taking medicines can help with this condition. This information is not intended to replace advice given to you by your health care provider. Make sure you discuss any questions you have with your health care provider. Document Revised: 04/03/2021 Document Reviewed: 04/03/2021 [email or web address] Patient Education ? 2022 [email or web address] ALLERGIES DATE TYPE / CODE NAME / CODE REACTION SEVERITY SOURCE 01/29/2013 DRUG/[id number] (SNOMED CT) AMOXICILLIN-POT CLAVULANATE [facility] /[id number](S NOMED CT) amoxicillin [id number] [facility] DR/[id number](S NOMED CT) Augmentin Rash [facility] ENCOUNTERS ADMIT/DISCHARGE ACCOUNT NUMBER ADMITTING ENCOUNTER CLASS LOCATION SOURCE 11/06/2024/ 5 [id number] Ambulatory Building:[facility] 11/06/2024/ 5 [id number] Ambulatory Building:[facility] 08/31/2024/ 5 [id number] Ambulatory Building:[facility] 08/14/2024/ 5 [id number] [place] [place] Exam 3 [facility] 07/14/2024/ 4 [id number] Ambulatory Building:[facility] 03/05/2024/ 4 [id number] Ambulatory Building:[facility] 03/04/2024 [id number] Ambulatory Building:[facility] 02/07/2024/ 4 [id number] Ambulatory [facility] [place] : Exam 3 [facility] PAYERS ENCOUNTER GUARANTOR PAYER SUBSCRIBER SOURCE 11/06/2024 Primary Insurance:HEALTHSCOPEPo licy Number: [id number] Date:2022-07-29 SYLVIA BELLAROMDOB: [id number] [place] [address] [facility] 11/06/2024 Primary Insurance:HEALTHSCOPEPo licy Number: [id number] Date:2022-07-29 SYLVIA ALDAROMDOB: [id number] [place] [address] [facility] 08/31/2024 SYLVIA Chapman ALDAROMDOB: [place] [address]Gxe: (HP) Primary Insurance:HEALTHSCOPEPo licy Number: [id number] Date:2022-07-29 SYLVIA Chapman ALDAROMDOB: [id number] [employer] [place] [id number] [facility] 08/14/2024 SYLVIA Chapman MICHELLE-ROMDOB: APPLE STTel: ~~( [phone] (HP) Primary Insurance:Healthscope BenefitsPolicy Number: [id number] Date:2024-08-13P Britany [place] [address] [address]CJ: SYLVIA Chapman MICHELLE-ROMHOUSTON [facility] 07/14/2024 [facility] Number: [id number] Date:2022-07-29 SYLVIA ALDAROMDOB: [id number] [place] [address] [facility] 03/05/2024 Primary Insurance:GENERIC COMMERCIALPolicy Number: [id number] Date:2022-07-29 SYLVIA ALDAROMDOB: [id number] [place] [address] [facility] 03/04/2024 Primary Insurance:GENERIC COMMERCIALPolicy Number: [id number] Date:2022-07-29 SYLVIA ALDAROMDOB: [id number] [place] [address] [facility] 02/07/2024 NATHALIAELAN Ari CHAUNCEYB: APPLE STTel: ~([phone] (HP) Primary Insurance:Health[employer] BenefitsPolicy Number: [id number] Date:2021-08-04P [address] [address], [place] [address]GS: SYLVIA FLOREZ [facility]
--- OUTSIDE RECORDS SUMMARY | 2025-02-01 07:37 | XMS_ITS | Encounter Summary ---
Author Organization [facility] Address [address] [place] [address] Care Team Providers Care Straightening Press Operator Helper Name Role Phone Scotty Reza MD Primary Care Provider [phone] Encounter Details Date Type Department Care Team ([facility] st Contact Info) Description 08/31/2024 Abstract [facility] [address] [facility] [address] [place] [id number] Scotty Reza MD [address] [facility] [address] [place], [place] [id number] Social History Tobacco Use Types Packs/Day Years Used Date Smoking Tobacco: Former Cigarettes 0.5 15 Q uit: 11/26/2008 Smokeless Tobacco: Never Comments:Last smoke: 1-5 yea rs Alcohol Use Standard Drinks/Week Comments Yes 2 (1 standard drink = 0.6 oz pure alcohol) Points: 1, Interpretation: Negative B1300 Health Literacy Answer Date Recor ded How often do you need to hav e someone help you when you read instructions, pamphlets, or other written material from your doctor or pharmacy? Never 08/30/2024 Social Connection and Isolation Panel [NHANES] A nswer Date Recorded In a typical week, how many times do you talk on the phone with family, friends, or neighbors? Once a week 08/30/2024 How often do you get togethe r with friends or relatives? Once a week 08/30/2024 How often do you attend oriental orthodox or caodaism serv ices? Never 08/30/2024 Do you belong to any clubs o r organizations such as oriental orthodox groups, unions, fraternal or athletic groups, or school groups? No 08/30/2024 How often do you attend meet ings of the clubs or organizations you belong to? Patient declined 08/30/2024 Are you , , di vorced, , never , or living with a partner? 08/30/2024 AUDIT-C Answer Date Recorded Q1: How often do you have a drink containing alc ohol? Monthly or less 08/30/2024 Q2: How many drinks containi ng alcohol do you have on a typical day when you are drinking? 1 or 2 08/30/2024 Q3: How often do you have si x or more drinks on one occasion? Less than monthly 08/30/2024 Overall Financial Resource Strain (CARDIA) Answe r Date Recorded How hard is it for you to pa y for the very basics like food, housing, medical care, and heating? Not hard at all 08/30/2024 [facility] - Occupational Stress Questionnaire Answer Date Recorded Do you feel stress - tense, restless, nervous, or anxious, or unable to sleep at night because your mind is troubled all the time - these days? Only a little 08/30/2024 Exercise Vital Sign Answer Date Recorde d On average, how many days pe r week do you engage in moderate to strenuous exercise (like a brisk walk)? 0 days 08/30/2024 On average, how many minutes do you engage in exercise at this level? 0 min 08/30/2024 Hunger Vital Sign Answer Date Recorded Within the past 12 months, y ou worried that your food would run out before you got the money to buy more. Never true 08/30/19 25 Within the past 12 months, t he food you bought just didn't last and you didn't have money to get more. Never true 08/30/2024 PRAPARE - Transportation Answer Date Re corded In the past 12 months, has l ack of transportation kept you from medical appointments or from getting medications? No 08/2024 In the past 12 months, has l ack of transportation kept you from meetings, work, or from getting things needed for daily living? No 08/30/2024 Housing Stability Vital Sign Answer Elver e Recorded In the last 12 months, was t here a time when you were not able to pay the mortgage or rent on time? No 08/30/2024 Number of Times Moved in the Last Year Not on fi le 08/30/2024 At any time in the past 12 m [facility], were you homeless or living in a fci (including now)? No 08/30/2024 Comments Unknown Sex and Gender Information Value Date Recorded Sex Assigned at Not on file Legal Sex Female 7:17 PM EDT Gender Identity Not on file Sexual Orientation Not on file documented as of this encounter Plan of Treatment Not on file documented as of this encounter Visit Diagnoses Not on filedocumented in this encounter Care Teams Straightening Press Operator Helper Relationship Specialty Start Date End Date Scotty Reza MD [address] [facility] [address] [place] [address] PCP - General Family Medicine 12/04/22 documented as of this encounter
--- OUTSIDE RECORDS SUMMARY | 2025-02-01 07:37 | XMS_ITS | Encounter Summary ---
Author Organization [facility] Address [address] [place] [address] Care Team Providers Care Distribution Systems Serviceperson Name Role Phone Scotty Martinez MD Primary Care Provider [phone] Encounter Details Date Type Department Care Team (Late st Contact Info) Description 08/14/2023 Clinisync Result Encounter [facility] External Department Unsolicited Scotty Martinez MD [address] [facility] [address] [place] [phone] Social History Tobacco Use Types Packs/Day Years Used Date Smoking Tobacco: Former Cigarettes Smokeless Tobacco: Never Comments:Last smoke: 1-5 yea rs Alcohol Use Standard Drinks/Week Comments Yes 0 (1 standard drink = 0.6 oz pure alcohol) Points: 1, Interpretation: Negative Comments Unknown Sex and Gender Information Value Date Recorded Sex Assigned at Not on file Legal Sex Female 7:17 PM EDT Gender Identity Not on file Sexual Orientation Not on file documented as of this encounter Plan of Treatment Not on file documented as of this encounter Procedures Procedure Name Priority Date/Time Associated Diagnosis Comments MM TOMOSYNTHESIS SCREENING BI 08/14/2023 9:48 AM EST documented in this encounter Results * MM TOMOSYNTHESIS SCREENING BI (08/14/2023 9:48 AM EST) Anatomical Region Laterality Modality Other 08/14/2023 9:48 AM EST Narrative 08/14/2023 9:49 AM EST The [address] [address] Mammography Report Signed Patient: LEXI MCCRARY MR#: [id number] : 1965 Acct:[id number] Age/Sex: 58 / F ADM Date: 08/14/23 Loc: MAMMO Attending Dr: SCOTTY MARTINEZ Ordering Physician: SCOTTY MARTINEZ Results: Date of Service: 08/14/23 Follow Up: Procedure(s): MM tomosynthesis screening BI Accession Number(s): [id number] cc: MICHELLEYANIVALMA Patient Name: LEXI MCCRARY MR#: [id number] : 1965 Exam Date: 08/14/2023 Ordering Doctor: DR SCOTTY MARTINEZ M.D. RADIOLOGY REPORT PROCEDURE: MM TOMOSYNTHESIS SCREENING BI COMPARISON: MG MAMM SCREEN LJ W CAD, 01/07/2017. MG MAMM SCREEN LJ W CAD, 01/24/2018. INDICATIONS: Screening Calculator Name NCI Breast Cancer Risk Assessment Tool 5 Year Breast Cancer Risk 1.20% Lifetime Breast Cancer Risk 5.20% Personal Breast Cancer No Personal Ovarian Cancer No Treatments None Family Cancers Aunt-maternal with colon cancer at age 40. LOCATION: The [facility] BREAST COMPOSITION: Heterogeneously dense,which may obscure small masses. FINDINGS: DIAGNOSTIC CATEGORY 1--NEGATIVE. NO CHANGE FROM COMPARISON ASSESSMENT. Scattered benign-appearing calcifications are present. Scattered benign-appearing lymph nodes are present. RIGHT BREAST: No significant suspicious finding. LEFT BREAST: No significant suspicious finding. RECOMMENDATIONS: ROUTINE MAMMOGRAM AND CLINICAL EVALUATION IN 12 MONTHS. PLEASE NOTE: A NORMAL MAMMOGRAM DOES NOT EXCLUDE THE POSSIBILITY OF BREAST CANCER. A CLINICALLY SUSPICIOUS PALPABLE LUMP SHOULD BE BIOPSIED. Dictated by: Chip Antonio MD on 08/14/2023 at 09:46 Approved by: Chip Antonio MD on 08/14/2023 at 09:48 Dictated By: Chip Antonio M.D. Signed By: 08/14/2349 DD/ TD/TT: Development Planner: Procedure Note Radiology, RadiologistMD - 08/14/2023 [place] [address] Mammography Report Signed Patient: LEXI MCCRARY MMR#: [id number] : 1965Acct:[id number] Age/Sex: 58 / FADM Date: 08/14/23 Loc: MAMMO Attending Dr: SCOTTY MARTINEZ Ordering Physician: SCOTTY MARTINEZResults: Date of Service: 08/14/23Follow Up: Procedure(s): MM tomosynthesis screening BI Accession Number(s): [id number] cc: MICHELLESCOTTY Patient Name: LEXI MCCRARY MR#: [id number] : 1965 Exam Date: 08/14/2023 Ordering Doctor: DR SCOTTY MARTINEZ M.D. RADIOLOGY REPORT PROCEDURE: MM TOMOSYNTHESIS SCREENING BI COMPARISON: MG MAMM SCREEN LJ W CAD, 01/07/2017. MG MAMM SCREEN LJ W CAD, 01/24/2018. INDICATIONS: Screening Calculator Name NCI Breast Cancer Risk Assessment Tool 5 Year Breast Cancer Risk 1.20% Lifetime Breast Cancer Risk 5.20% Personal Breast Cancer No Personal Ovarian Cancer No Treatments None Family Cancers Aunt-maternal with colon cancer at age 40. LOCATION: The [facility] BREAST COMPOSITION: Heterogeneously dense,which may obscure smallmasses. FINDINGS: DIAGNOSTIC CATEGORY 1--NEGATIVE. NO CHANGE FROM COMPARISON ASSESSMENT. Scattered benign-appearing calcifications are present. Scattered benign-appearing lymph nodes are present. RIGHT BREAST: No significant suspicious finding. LEFT BREAST: No significant suspicious finding. RECOMMENDATIONS: ROUTINE MAMMOGRAM AND CLINICAL EVALUATION IN 12 MONTHS. PLEASE NOTE: A NORMAL MAMMOGRAM DOES NOT EXCLUDE THE POSSIBILITY OFBREAST CANCER. A CLINICALLY SUSPICIOUS PALPABLE LUMP SHOULD BE BIOPSIED. Dictated by: Chip Antonio MD on 08/14/2023 at 09:46 Approved by: Chip Antonio MD on 08/14/2023 at 09:48 Dictated By: Chip Antonio M.D. Signed By:08/14/2349 DD/ TD/TT: Development Planner: Scotty Martinez MD [facility] Final Result documented in this encounter Visit Diagnoses Not on filedocumented in this encounter Care Teams Distribution Systems Serviceperson Relationship Specialty Start Date End Date Scotty Martinez MD [address] [place] [address] PCP - General Family Medicine 12/04/22 documented as of this encounter
--- OUTSIDE RECORDS SUMMARY | 2025-02-01 07:37 | XMS_ITS | Encounter Summary ---
Author Organization [facility] Address [address] [facility] [place] [address] Care Team Providers Care Perianesthesia Manager Name Role Phone Scotty Reza MD Primary Care Provider [phone] Encounter Details Date Type Department Care Team ([facility] Contact Info) Description 08/07/2023 Abstract [facility] [address] [facility] [address] [place] [address] Scotty Reza MD [address] [facility] 110 [place] [address] Social History Tobacco Use Types Packs/Day Years [...] on filedocumented in this encounter Care Teams Perianesthesia Manager Relationship Specialty Start Date End Date Scotty Reza MD [address] [facility] [address] [place] [address] PCP - General Family Medicine 12/04/22 documented as of this encounter
--- OUTSIDE RECORDS SUMMARY | 2025-02-01 07:37 | XMS_ITS | Encounter Summary ---
Author Organization [facility] Address [address] [place] [address] Care Team Providers Care Diplomatic Interpreter/Translator Name Role Phone Scotty Reza MD Primary Care Provider [phone] Encounter Details Date Type Department Care Team ([facility] Contact Info) Description 02/05/2023 Orders Only [facility] [address] [place] [address] [place] [address] Provider, MD Liang [address] [place], [place] [id number] Social History Tobacco Use Types Packs/Day Years Used Date Smoking Tobacco: Never Assessed Comments Unknown Sex and Gender Information Value Date Recorded Sex Assigned at Not on file Legal Sex Female 7:17 PM EDT Gender Identity Not on file Sexual Orientation Not on file documented as of this encounter Plan of Treatment Not on file documented as of this encounter Procedures Procedure Name Priority Date/Time Associated Diagnosis Comments ELECTROCARDIOGRAM REPORT Routine 023 12:58 PM EDT documented in this encounter Results * Electrocardiogram Report (02/05/2023 12:58 PM EDT) Historical Provider IN CLINIC/BEDSIDE ORDERAB LES Final Result documented in this encounter Visit Diagnoses Not on filedocumented in this encounter Care Teams Diplomatic Interpreter/Translator Relationship Specialty Start Date End Date Scotty Reza MD [address] [place] [address] [place] [address] PCP - General Family Medicine 12/04/22 documented as of this encounter
--- OUTSIDE RECORDS SUMMARY | 2025-02-01 07:37 | XMS_ITS | Encounter Summary ---
Author Organization [facility] Address [address] [place] [address] Care Team Providers Care Whiskey Regauger Name Role Phone Scotty Reza MD Primary Care Provider [phone] Encounter Details Date Type Department Care Team ([facility] st Contact Info) Description 12/15/2023 Clinisync Result Encounter [facility] External Department Unsolicited Provider, Generic External Data Social History Tobacco Use Types Packs/Day Years [...] Procedure Name Priority Date/Time Associated Diagnosis Comments CT CHEST WO CONTRAST 12/15/2023 8:22 AM EDT documented in this encounter Results * CT CHEST WO CONTRAST (12/15/2023 8:22 AM EDT) Anatomical Region Laterality Modality Other 12/15/2023 8:22 AM EDT Narrative 12/15/2023 8:26 AM EDT EXAMINATION: CT OF THE CHEST WITHOUT CONTRAST [...] by: Shar Chery MD 12/15/23 Final result Procedure Note Radiology, Radiologist, MD - 12/15/2023 EXAMINATION: CT OF THE CHEST WITHOUT CONTRAST 12/13/2023 6:46 pm TECHNIQUE: CT of the chest was performed without the administration of intravenous contrast. Multiplanar reformatted images are provided for review.Automated exposure control, iterative reconstruction, and/or weight based adjustmentof the mA/kV was utilized to reduce the radiation dose to as low asreasonably achievable. COMPARISON: CT chest 12/12/2022, 11/27/2021. HISTORY: [...] UPPER ABDOMEN: Small sliding-type hiatal hernia. Stable scatteredhypodense lesions in the liver, likely cysts. MUSCULOSKELETAL: No acute osseous abnormality. Mild-moderate thoracic spondylosis. IMPRESSION: 1. Stable mild reticulations in posterior bilateral lung bases,suggesting early pulmonary fibrosis. 2. Stable dilated main pulmonary artery. Correlate with pulmonaryarterial hypertension. 3. Other chronic findings as described. Interpreted by: Shar Chery MD Signed by: Shar Chery MD 12/15/23 Final result Generic External Data Provider [facility] Final Result documented in this encounter Visit Diagnoses Not on filedocumented in this encounter Care Teams Whiskey Regauger Relationship Specialty Start Date End Date Scotty Reza MD [address] [place] [address] PCP - General Family Medicine 12/04/22 documented as of this encounter
--- OUTSIDE RECORDS SUMMARY | 2025-02-01 07:37 | XMS_ITS | Encounter Summary ---
Author Organization [facility] Address [address] [facility] [place] [address] Care Team Providers Care Herb Digger Name Role Phone Scotty Reza MD Primary Care Provider [phone] Encounter Details Date Type Department Care Team ([facility] Contact Info) Description 12/30/2023 Abstract [facility] [address] [facility] [address] [place] [address] Scotty Reza MD [address] [facility] 110 [place] [address] Social History Tobacco Use Types Packs/Day Years [...] on filedocumented in this encounter Care Teams Herb Digger Relationship Specialty Start Date End Date Scotty Reza MD [address] [facility] 110 [place] [address] PCP - General Family Medicine 12/04/22 documented as of this encounter
--- OUTSIDE RECORDS SUMMARY | 2025-02-01 07:37 | XMS_ITS | Clinical Summary ---
Author Organization [facility] Address [address] [place] [address] Care Team Providers Care Quality Specialist Name Role Phone Scotty Reza MD Primary Care Provider [phone] Allergies Active Allergy Reactions Criticality Noted Date Comments Amoxicillin-Pot Clavulanate 01/30/20 13 Medications Tadalafil, PAH, (ADCIRCA) 20 MG tablet Take 80 mg by mouth daily. Active hydrochlorothiaz willow (HYDRODIURIL) 25 MG tablet Take 25 mg by mouth daily. Active NIFEdipine (PROCARDIA XL) 90 MG CR tablet Take 240 mg by mouth daily. Active carvedilol (COREG) 6.25 MG tablet Take 6.25 mg by mouth 2 times daily (with meals). Active lisinopril (PRINIVIL;ZESTRI L) 20 MG tablet Take 20 mg by mouth daily. Active hydroxychloroqui ne (PLAQUENIL) 200 MG tablet Take 200 mg by mouth 2 times daily. Active aspirin 81 MG tablet Take 81 mg by mouth daily. Active omeprazole (PRILOSEC) 20 MG capsule Take 40 mg by mouth daily. Active ranitidine (ZANTAC 150 MAXIMUM STRENGTH) 150 MG tablet Take 150 mg by mouth daily. Active loratadine (CLARITIN) 10 MG tablet Take 10 mg by mouth daily. Active ferrous sulfate 325 (65 FE) MG tablet Take 325 mg by mouth daily (with breakfast). Active Social History Tobacco Use Types Packs/Day Years Used Date Smoking Tobacco: Former Smokeless Tobacco: Never Alcohol Use Standard Drinks/Week Comments No 0 (1 standard drink = 0.6 oz pur e alcohol) Comments No Sex and Gender Information Value Date Recorded Sex Assigned at Not on file Legal Sex Female 5:49 PM EST Gender Identity Not on file Sexual Orientation Not on file Last Filed Vital Signs Vital Sign Reading Time Taken Comments Blood Pressure 100/65 05/20/2022 11:10 AM EDT Pulse 90 05/20/2022 11:10 AM EDT Temperature 36.8 C (98.2 F) 05/20/2022 11:10 AM EDT Respiratory Rate 18 05/20/2022 11:10 AM EDT Oxygen Saturation 99% 05/20/2022 11:10 AM EDT Inhaled Oxygen Concentration - - Weight 78.5 kg (173 lb) 05/20/2022 11:10 AM EDT Height 152.4 cm (5') 01/29/2013 12:47 PM EDT Body Mass Index 33.79 01/29/2013 12:47 PM EDT Plan of Treatment Health Maintenance Due Date Last Done Comments Depression Screen 1976 HIV screen 1979 Hepatitis C screen 1982 Pap smear 1985 Cervical cancer screen 1994 HPV (without or with Pap) 1994 Colonoscopy 2009 Fecal-DNA (Cologuard): Average risk 2009 Sigmoidoscopy/CT colonography 2009 Colorectal Cancer Screen 08/30/2012 FIT/FOBT: Average risk 08/30/2012 2, 08/29/2011, 08/28/2011 Shingles vaccine (2 of 3) 03/24/2016 01/28/2016 Lipids 10/06/2017 10/06/2012, 09/10/2011 Pneumococcal 50+ years Vaccine (2 of 2 - PPSV23) 10/12/2017 10/12/2016 Breast cancer screen 01/25/2020 01/24/2018, 01/25/20 18 COVID-19 Vaccine (4 - season) 2024 08/16/2021, 10/27/2020, 10/14/2020 Flu vaccine (#1) 02/26/2025 05/22/2022, , 05/20/2020, Additional history exists DTaP/Tdap/Td vaccine (4 - Td or Tdap) 08/31/2028 08/31/2018, 10/12/2016, 10/19/2015 Respiratory Syncytial Virus (RSV) or age 60 yrs+ (1 - 1-dose 75+ series) 2039 Pneumococcal 0-49 years Vaccine Discontinued 10/12/2016 GFR test (Diabetes, CKD 3-4, OR last GFR 15-59) Discontinued 06/11/2022, 04/11/2022, 02/15/2022, Additional history exists Hepatitis A vaccine Aged Out No longe r eligible based on patient's age to complete this topic Hepatitis B vaccine Aged Out No longe r eligible based on patient's age to complete this topic Hib vaccine Aged Out No longer eligi ble based on patient's age to complete this topic Meningococcal (ACWY) vaccine Aged Out No longer eligible based on patient's age to complete this topic Meningococcal B vaccine Aged Out No l onger eligible based on patient's age to complete this topic Polio vaccine Aged Out No longer elig ible based on patient's age to complete this topic Procedures Procedure Name Priority Date/Time Associated Diagnosis Comments CREATININE Routine 06/11/2022 7:29 AM EST LIPID PANEL Routine 10/06/2012 7:09 AM EDT OCCULT BLOOD DIAGNOSTIC Routine 08/30/2011 7:35 AM EST from Last 3 Months or Most Recently Relevant to Health Maintenance Results * (ABNORMAL) Creatinine (06/11/2022 7:29 AM EST) Creatinine 1.82(H) 0.50 - 0.90 mg/dL 06/11/2022 7:29 AM EST [facility] Est, Glom Filt Rate 32(L) >60 mL/min/1.7 3m2 06/11/2022 7:29 AM EST [facility] Comment: Effective Apr 30, 2022 These results [...] following therapy that affects renal tubular secretion. 06/11/2022 7:29 AM EST 06/11/2022 7:30 AM EST us Juventino Bullock MD CHEMISTRY ORDERABLES Final R esult Performing Organization Address City/[facility]/ZIP Co de Phone Number [facility] [address] [place] [address] * Lipid panel (10/06/2012 7:09 AM EDT) Cholesterol 166 0 - 200 mg/dL 10/06/2012 8:08 AM EDT [facility] HDL 62 >50 mg/dL 10/06/2012 8:08 AM EDT [facility] Comment: Reference range: >= 60 Negative Risk Factor LDL Cholesterol 89 0 - 100 mg/dL 10/06/2012 8:08 AM EDT [facility] Comment: Direct (measured) LDL and calculated LDL are not interchangeable tests. Chol/HDL Ratio 3.0 1.0 - 5.0 10/06/2012 8:08 AM EDT [facility] Triglycerides 75 0 - 150 mg/dL 10/06/2012 8:08 AM EDT [facility] VLDL 15 6 - 30 mg/dL 10/06/2012 8:08 AM EDT [facility] Comment: Performed at [address] [place] [address] 10/06/2012 7:09 AM EDT 10/06/2012 7:10 AM EDT us Scotty Reza MD CHEMISTRY ORDERABLES Final Resul t Performing Organization Address [facility]/ZIP Co de Phone Number [place] [id number] [phone] [facility] * (ABNORMAL) Occult Blood Diagnostic (08/30/2011 7:35 AM EST) Fecal Occult Blood, POC POSITIVE(A ) NEG [facility] Comment: Performed at [address] [place] [address] 08/30/2011 7:35 AM EST 08/30/2011 8:35 AM EST us Flory Umaña MD BODY FLUIDS AND STOOLS ORDERAB LES Final Result [facility] from Last 3 Months or Most Recently Relevant to Health Maintenance Insurance [employer] Care Teams Quality Specialist Relationship Specialty Start Date End Date Scotty Reza MD PCP - General 10/03/12
--- OUTSIDE RECORDS SUMMARY | 2025-02-01 07:37 | XMS_ITS | Clinical Summary ---
Author Organization [facility] Address [address] [place] [address] Care Team Providers Care Corporate Learning Consultant Name Role Phone Scotty Reza MD Primary Care Provider [phone] Allergies Active Allergy Reactions Criticality Noted Date Comments Amoxicillin-Pot Clavulanate 01/30/20 13 Other reaction(s): Other Medications aspirin 81 mg EC tablet Take 81 mg by mouth in the morning. Active carvedilol (Coreg) 6.25 mg tablet Take 6.25 mg by mouth with breakfast and with evening meal. Active celecoxib (CeleBREX) 200 mg capsule Take 200 mg by mouth in the morning. Active ferrous sulfate 325 (65 Fe) MG tablet Take 325 mg by mouth with breakfast. Active furosemide (Lasix) 20 mg tablet Take 20 mg by mouth in the morning and at bedtime. Active hydroxychloroqui ne (Plaquenil) 200 mg tablet Take 200 mg by mouth as directed by study team. Takes 1 tablet oral every other day alternating with 1 tablet twice a day every other day Active lisinopril 10 mg tablet Take 10 mg by mouth in the morning. Active NIFEdipine XL (Procardia XL) 60 mg 24 hr tablet Take 60 mg by mouth in the morning. Active omeprazole (PriLOSEC) [address] capsule Take 20 mg by mouth before breakfast and before evening meal. Active sulfaSALAzine (Azulfidine) 500 mg EC tablet Take 1,000 mg by mouth in the morning and at bedtime. Active tolterodine LA (Detrol LA) 4 mg 24 hr capsule Take 4 mg by mouth in the morning. Active cholecalciferol (D3-5) 5,000 Units tablet Take 5,000 Units by mouth in the morning. Active cetirizine (ZyrTEC) 10 mg tablet Take 10 mg by mouth in the morning. Active ambrisentan (Letairis) 10 mg tabletIndication s:Pulmonary HTN (CMS/HCC) Take 1 tablet (10 mg) by mouth in the morning. Do not crush, chew, or split. 90 tablet 3 3 Active Additional Information Patient not taking.Reported on 12/18/2023 tadalafil (Cialis) 20 mg tabletIndication s:Pulmonary HTN (CMS/HCC) Take 1 tablet (20 mg) by mouth in the morning. 90 tablet 3 3 Active Additional Information Patient not taking.Reported on 05/14/2023 macitentan (Opsumit) 10 mg tabletIndication s:Pulmonary HTN (CMS/HCC) Take 10 mg by mouth in the morning. 90 tablet 3 4 Active Additional Information Patient not taking.Reported on 12/18/2023 atorvastatin (Lipitor) 40 mg tablet Take 40 mg by mouth in the morning. Active ambrisentan (Letairis) 5 mg tabletIndication s:Pulmonary hypertension (CMS/HCC) Take 1 tablet (5 mg) by mouth in the morning. Do not crush, chew, or split. 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 08/02/2023 Contracture, left ankle 08/02/2023 Idiopathic gout 08/02/2023 ILD (interstitial lung disease) 08/02/2023 Peripheral venous insufficiency 08/02/2023 Pulmonary fibrosis 08/02/2023 Raynaud disease 08/02/2023 Reflux gastritis 08/02/2023 Stage 3a chronic kidney disease 08/02/2023 Overview (12/25/2023): Last Assessment & Plan: Increase fluids Avoid ibuprofen Rheumatoid arthritis in remission 01/24/2023 Shortness of breath 09/21/2022 Pulmonary HTN 09/19/2022 Systemic scleroses 09/19/2022 Arthropathy 03/26/2017 Atrial fibrillation 02/13/2013 Chest pain 02/13/2013 Coronary artery disease invo lving knik coronary artery of knik heart without angina pectoris 02/13/2013 Deficiency anemia 08/28/2011 Essential hypertension 08/27/2011 Hyperlipidemia 08/27/2011 Encounters Date Type Department Care Team Description 11/06/2024 9:00 AM EDT Office Visit [facility] [address] [place] [address] Flory Pruitt MD WHO group 1 pulmonary arterial hypertension (CMS/HCC) (Primary Dx); Coronary artery disease involving knik coronary artery of knik heart without angina pectoris; Essential hypertension; Systemic scleroses (CMS/HCC) 11/06/2024 8:15 AM EDT Ancillary Procedure [facility] [address] [place] [address] Dyspnea, unspecified type 11/06/2024 Abstract [facility] [address] [place] [address] Ilda Marcano MA 11/06/2024 Abstract [facility] [address] [facility] [place] [address] Ilda Marcano MA 11/06/2024 Abstract [facility] [address] [facility] [place] [address] Ilda Marcano MA 11/06/2024 Abstract [facility] [address] [place] [address] Ilda Marcano MA 11/06/2024 Abstract [facility] [address] [place] [address] Ilda Marcano MA 11/06/2024 Abstract [facility] [address] [place] [address] Ilda Marcano MA from Last 3 Months Family History Medical History Relation Name Comments Hypertension Father Hypertension Mother Relation Name Status Comments Father Mother Social History Tobacco Use Types Packs/Day Years Used Date Smoking Tobacco: Former Cigarettes Smokeless Tobacco: Never Tobacco Cessation:Counseling Given: Not Answered Alcohol Use Standard Drinks/Week Comments Not Currently 0 (1 standard drink = 0.6 oz pur e alcohol) [place] Safety & Environment Answer Date Rec orded Fear of Current or Ex-Partner Not on file Emotionally Abused Not on file 09/19/2023 Physically Abused Not on file 09/19/2023 Sexually Abused Not on file 09/19/2023 Physically or Sexually Abused Not on file Comments No Sex and Gender Information Value Date Recorded Sex Assigned at Not on file Legal Sex Female 9:33 PM EDT Gender Identity Not on file Sexual Orientation Not on file Last Filed Vital Signs Vital Sign Reading Time Taken Comments Blood Pressure 104/70 11/06/2024 8:56 AM EDT Pulse 65 11/06/2024 8:56 AM EDT Temperature - - Respiratory Rate 14 11/06/2024 8:56 AM EDT Oxygen Saturation 97% 11/06/2024 8:56 AM EDT Inhaled Oxygen Concentration - - Weight 79.8 kg (176 lb) 11/06/2024 8:56 AM EDT Height 152.4 cm (5') 11/06/2024 8:56 AM EDT Body Mass Index 34.37 11/06/2024 8:56 AM EDT Plan of Treatment Health Maintenance Due Date Last Done Comments CT Colonography 1965 Colonoscopy 1965 FIT-DNA 1965 FOBT 1965 Sigmoidoscopy 1964 Depression Screening 1976 Pap Smear 1985 Cervical Cancer Screening 1994 HPV/Cotest 1994 Mammogram 2004 Zoster Vaccines (1 of 2) 2014 01/28/2016 Pneumococcal Vaccine: Pediatrics (0 to 5 Years) and At-Risk Patients (6 to 64 Years) (2 of 2 - PPSV23, PCV20, or PCV21) 12/07/2016 10/12/2016 COVID-19 Vaccine (4 - season) 2024 08/16/2021, 10/27/2020, 10/14/2020 Colorectal Cancer Screening 08/19/2024 FIT 08/19/2024 08/19/2023 Influenza Vaccine (#1) 2025 2, 05/22/2021, 05/20/2020, Additional history exists Adult Tetanus 08/31/2028 08/31/2018, 09/26, 10/19/2015 HIB Vaccines Aged Out No longer eligi ble based on patient's age to complete this topic HPV Vaccines Aged Out No longer eligi ble based on patient's age to complete this topic IPV Vaccines Aged Out No longer eligi ble based on patient's age to complete this topic Meningococcal B Vaccine Aged Out No l onger eligible based on patient's age to complete this topic Meningococcal Vaccine Aged Out No ralf daniele eligible based on patient's age to complete this topic Rotavirus Vaccines Aged Out No longer eligible based on patient's age to complete this topic Procedures Procedure Name Priority Date/Time Associated Diagnosis Comments COMPLETE ECHO (TTE) Routine 11/06/2024 8 :58 AM EDT Dyspnea, unspecified type from Last 3 Months Results * COMPLETE ECHO (TTE) (11/06/2024 8:58 AM EDT) Anatomical Region Laterality Modality Other 11/06/2024 8:31 AM EDT Narrative 11/06/2024 4:41 PM EDT 1 [facility] [phone] (fax) [phone] (fax) [phone] (fax) [phone] (fax) [facility] Name: LEXI ZAVALA Study Date: 11/06/2024 08:31 AM B/P: 104 mmHg/70 mmHg HR: Date of : 1965 Location: [place] Height: 60 in. Age: 59 year(s) Patient Room: Weight: 176 lb. Gender: Female Patient Status: OutPt BSA: 1.77 m2 Indication: Dyspnea on exertion, Assess PA pressure Examination: Echocardiogram (Complete) Image Quality: Adequate Patient Consent: Procedure explained to patient Conclusions Left Ventricle: The left ventricle is normal size. Global left ventricular systolic function is normal. The EF is 60 % visually. Left ventricular wall thickness is at upper normal limits. No regional wall motion abnormality. Right Ventricle: The right ventricle is normal in size. Normal right ventricular systolic function. Doppler studies suggest severely elevated right sided pressures. Left Atrium: The left atrium is moderately enlarged. Mitral Valve: Trvial to mild mitral regurgitation. Aortic Valve: Trivial aortic valve regurgitation. Tricuspid Valve: Mild-moderate tricuspid regurgitation. Measurements Left Ventricle Label Value Normal Value LVOT PGmax 3.03 mmHg LVEF visual 60 % LVDd, 2D 5.15 cm (3.9cm - 5.3cm) LVDs, 2D 3.83 cm (2.1cm - 4cm) IVSd, 2D 1.13 cm (0.6cm - 1.1cm) LVPWd, 2D 1.05 cm (0.6cm - 0.9cm) LV Mass, 2D ASE 214.63 g LV Mass Index, 2D ASE 121.3 g/m?? (44g/m?? - 88.4g/m??) RWT, MM 0.41 (0 - 0.42) Right Ventricle Label Value Normal Value RVDd, 2D 3.69 cm (1.9cm - 3.8cm) TAPSE 1.4 cm Left Atrium Label Value Normal Value LA Volume, BP 42 ml (22ml - 52ml) LADs, 2D 4.4 cm (2.7cm - 3.8cm) LAESV index, BP 23.7 ml/m?? Right Atrium Label Value Normal Value RA Area 12.9 cm?? Aortic Valve Label Value Normal Value AV DVI 0.59 Mitral Valve Label Value Normal Value MV E Vmax 0.73 m/s MV A Vmax 0.79 m/s MV E/A 0.92 Tricuspid Valve Label Value Normal Value RA Pressure 3 mmHg RVSP 60 mmHg TR Vmax 3.79 m/s Aorta Label Value Normal Value AoRoot, 2D 3.15 cm (1.4cm - 3.8cm) Great Vessels Label Value Normal Value IVC 2.02 cm (1.2cm - 2.3cm) Valvular Assessment LVOT 0.7 - 1.1 m/sec Aortic Valve 1.0 - 1.7 m/sec Mitral Valve 0.6 - 1.3 m/sec Tricuspid Valve 0.3 - 0.7 m/sec Pulmonic Valve 0.6 - 0.9 m/sec Regurgitation Trivial trivMil MildMod Mild Stenosis No No No No Max Velocity 0.87 m/sec 1.47 m/s 0.73 m/sec 0.45 m/s 0.87 m/s Max Gradient 8.62 mmHg 0.81 mmHg 3.06 mmHg Findings Left Ventricle: The left ventricle is normal size. Global left ventricular systolic function is normal. EF evaluated by visual assessment. The EF is 60 % visually. Left ventricular wall thickness is at upper normal limits. No regional wall motion abnormality. Right Ventricle: The right ventricle is normal in size. Normal right ventricular systolic function. Doppler studies suggest severely elevated right sided pressures. Left Atrium: The left atrium is moderately enlarged. IAS: Normal appearing atrial septum. Right Atrium: The right atrium is mildly enlarged. Mitral Valve: There is mild thickening of the mitral valve leaflets. Trvial to mild mitral regurgitation. No mitral valve stenosis. Aortic Valve: Aortic valve is tri-leaflet. The aortic valve is normal. Trivial aortic valve regurgitation. No aortic valve stenosis. Tricuspid Valve: Normal tricuspid valve. Mild-moderate tricuspid regurgitation. No tricuspid valve stenosis. Pulmonic Valve: Normal pulmonary valve. Mild pulmonary regurgitation. No pulmonic valve stenosis. Aorta: The aortic root exhibits normal size. Great Vessels: IVC: The IVC is normal in size. Respiratory inspiration greater than 50%. Pericardium: No pericardial effusion. Procedure Staff Reading Group: [facility] Referring Physician: Scotty Reza MD Experimental Mechanic Electrical: Lucila Castro RDCS Ordering Physician: FLORY PRUITT Procedure Note Mark Salmon MD - 11/06/2024 1 [facility] [phone] (fax) [phone] (fax) [phone] (fax) [phone] (fax) [facility]chocardiogram[facility] Name: LEXI ZAVALA Study Date: 11/06/2024 08:31 AM B/P: 104 mmHg/70 mmHg HR: Date of : 1965 Location: [place] Height: 60 in. Age: 59 year(s) Patient Room: Weight: 176 lb. Gender: Female Patient Status: OutPt BSA: 1.77 m2 Indication: Dyspnea on exertion, Assess PA pressure Examination: Echocardiogram (Complete) Image Quality: Adequate Patient Consent: Procedure explained to patient Conclusions Left Ventricle: The left ventricle is normal size. Global left ventricular systolic function is normal. The EF is 60 % visually. Left ventricular wall thickness is at upper normal limits. No regional wall motion abnormality. Right Ventricle: The right ventricle is normal in size. Normal right ventricular systolic function. Doppler studies suggest severely elevated right sided pressures. Left Atrium: The left atrium is moderately enlarged. Mitral Valve: Trvial to mild mitral regurgitation. Aortic Valve: Trivial aortic valve regurgitation. Tricuspid Valve: Mild-moderate tricuspid regurgitation. Measurements Left Ventricle Label Value Normal Value LVOT PGmax 3.03 mmHg LVEF visual 60 % LVDd, 2D 5.15 cm (3.9cm - 5.3cm) LVDs, 2D 3.83 cm (2.1cm - 4cm) IVSd, 2D 1.13 cm (0.6cm - 1.1cm) LVPWd, 2D 1.05 cm (0.6cm - 0.9cm) LV Mass, 2D ASE 214.63 g LV Mass Index, 2D ASE 121.3 g/m?? (44g/m?? - 88.4g/m??) RWT, MM 0.41 (0 - 0.42) Right Ventricle Label Value Normal Value RVDd, 2D 3.69 cm (1.9cm - 3.8cm) TAPSE 1.4 cm Left Atrium Label Value Normal Value LA Volume, BP 42 ml (22ml - 52ml) LADs, 2D 4.4 cm (2.7cm - 3.8cm) LAESV index, BP 23.7 ml/m?? Right Atrium Label Value Normal Value RA Area 12.9 cm?? Aortic Valve Label Value Normal Value AV DVI 0.59 Mitral Valve Label Value Normal Value MV E Vmax 0.73 m/s MV A Vmax 0.79 m/s MV E/A 0.92 Tricuspid Valve Label Value Normal Value RA Pressure 3 mmHg RVSP 60 mmHg TR Vmax 3.79 m/s Aorta Label Value Normal Value AoRoot, 2D 3.15 cm (1.4cm - 3.8cm) Great Vessels Label Value Normal Value IVC 2.02 cm (1.2cm - 2.3cm) Valvular Assessment LVOT 0.7 - 1.1 m/sec Aortic Valve 1.0 - 1.7 m/sec Mitral Valve 0.6 - 1.3 m/sec Tricuspid Valve 0.3 - 0.7 m/sec Pulmonic Valve 0.6 - 0.9 m/sec Regurgitation Trivial trivMil MildMod Mild Stenosis No No No No Max Velocity 0.87 m/sec 1.47 m/s 0.73 m/sec 0.45 m/s 0.87 m/s Max Gradient 8.62 mmHg 0.81 mmHg 3.06 mmHg Findings Left Ventricle: The left ventricle is normal size. Global left ventricular systolic function is normal. EF evaluated by visual assessment. The EF is 60 % visually. Left ventricular wall thickness is at upper normal limits. No regional wall motion abnormality. Right Ventricle: The right ventricle is normal in size. Normal right ventricular systolic function. Doppler studies suggest severely elevated right sided pressures. Left Atrium: The left atrium is moderately enlarged. IAS: Normal appearing atrial septum. Right Atrium: The right atrium is mildly enlarged. Mitral Valve: There is mild thickening of the mitral valve leaflets. Trvial to mild mitral regurgitation. No mitral valve stenosis. Aortic Valve: Aortic valve is tri-leaflet. The aortic valve is normal. Trivial aortic valve regurgitation. No aortic valve stenosis. Tricuspid Valve: Normal tricuspid valve. Mild-moderate tricuspid regurgitation. No tricuspid valve stenosis. Pulmonic Valve: Normal pulmonary valve. Mild pulmonary regurgitation. No pulmonic valve stenosis. Aorta: The aortic root exhibits normal size. Great Vessels: IVC: The IVC is normal in size. Respiratory inspiration greater than 50%. Pericardium: No pericardial effusion. Procedure Staff Reading Group: [facility] Referring Physician: Scotty Reza MD Experimental Mechanic Electrical: Lucila Castro RDCS Ordering Physician: FLORY PRUITT us Flory Pruitt MD CV ECHO PROCEDURES Final Resul t from Last 3 Months Insurance [employer] Care Teams Corporate Learning Consultant Relationship Specialty Start Date End Date Scotty Reza MD [address] [place] [address] PCP - General 09/19/22
--- OUTSIDE RECORDS SUMMARY | 2025-02-01 07:37 | XMS_ITS | Encounter Summary ---
Author Organization [facility] Address [address] [facility] [place] [address] Care Team Providers Care Spice Blender Name Role Phone Scotty Reza MD Primary Care Provider [phone] Encounter Details Date Type Department Care Team ([facility] Contact Info) Description 12/18/2023 Abstract [facility] [address] [facility] [address] [place] [address] Scotty Reza MD [address] [facility] 110 [place] [address] Social History Tobacco Use Types Packs/Day Years [...] on filedocumented in this encounter Care Teams Spice Blender Relationship Specialty Start Date End Date Scotty Reza MD [address] [facility] 110 [place] [address] PCP - General Family Medicine 12/04/22 documented as of this encounter
--- OUTSIDE RECORDS SUMMARY | 2025-02-01 07:37 | XMS_ITS | Encounter Summary ---
Author Organization [facility] Address [address] [place] [place] [address] Care Team Providers Care Manufacturing Quality Inspector Name Role Phone Scotty Reza MD Primary Care Provider Encounter Details Date Type Department Care Team ([facility] Contact Info) Description 03/04/2024 Orders Only [facility] [address] [place] [address] [place] [address] Unallocated, Noms Provider, [address] [place] [address] Social History Tobacco Use Types Packs/Day Years [...] Procedure Name Priority Date/Time Associated Diagnosis Comments TRANSTHORACIC ECHO (TTE) COMPLETE Routine 03/04/2024 4:49 PM EDT documented in this encounter Results * Transthoracic echo (TTE) complete (03/04/2024 4:49 PM EDT) Anatomical Region Laterality Modality Heart Ultrasound us Noms Provider Unallocated CV ECHO PROCEDURES Final Result documented in this encounter Visit Diagnoses Not on filedocumented in this encounter Care Teams Manufacturing Quality Inspector Relationship Specialty Start Date End Date Scotty Reza MD [address] [place], [place] [id number] PCP - General Family Medicine 12/04/22 documented as of this encounter
--- OUTSIDE RECORDS SUMMARY | 2025-02-01 07:37 | XMS_ITS | Encounter Summary ---
Author Organization [facility] Address [address] [place] [address] Care Team Providers Care Commercial Real Estate Attorney Name Role Phone Scotty Reza MD Primary Care Provider [phone] Encounter Details Date Type Department Care Team ([facility] Contact Info) Description 09/04/2023 Orders Only [facility] [address] [place] [address] [place] [address] Unallocated, Noms Provider, [address] [place] [address] Social History Tobacco Use Types Packs/Day Years [...] Date/Time Associated Diagnosis Comments ELECTROCARDIOGRAM REPORT Routine 024 12:58 PM EST documented in this encounter Results * Electrocardiogram Report (09/03/2023 12:58 PM EST) us Noms Provider Unallocated MD IN CLINIC/BEDSIDE O RDERABLES Final Result documented in this encounter Visit Diagnoses Not on filedocumented in this encounter Care Teams Commercial Real Estate Attorney Relationship Specialty Start Date End Date Scotty Reza MD [address] [place] [address] PCP - General Family Medicine 12/04/22 documented as of this encounter
--- OUTSIDE RECORDS SUMMARY | 2025-02-01 07:37 | XMS_ITS | Encounter Summary ---
Author Organization [facility] Address [address] [place] [address] Care Team Providers Care Tire Duster Name Role Phone Scotty Reza MD Primary Care Provider [phone] Encounter Details Date Type Department Care Team ([facility] Contact Info) Description 08/14/2023 Orders Only [facility] [address] [place] [address] [place] [id number] A, Unknown Practice [address] [place], [place] [id number] Social History Tobacco Use Types Packs/Day Years [...] Procedure Name Priority Date/Time Associated Diagnosis Comments MAMMOGRAM* Routine 08/14/2023 1:27 PM EST documented in this encounter Results * MAMMOGRAM* (08/14/2023 1:27 PM EST) Anatomical Region Laterality Modality Radiographic Mindy ging us Unknown Practice A IMG XR PROCEDURES Final Resul t documented in this encounter Visit Diagnoses Not on filedocumented in this encounter Care Teams Tire Duster Relationship Specialty Start Date End Date Scotty Reza MD [address] [place] [address] [place] [address] PCP - General Family Medicine 12/04/22 documented as of this encounter
--- OUTSIDE RECORDS SUMMARY | 2025-02-01 07:37 | XMS_ITS | Encounter Summary ---
Author Organization [facility] Address [address] [facility] [place] [address] Care Team Providers Care Fuels Engineer Name Role Phone Scotty Reza MD Primary Care Provider [phone] Encounter Details Date Type Department Care Team ([facility] Contact Info) Description 12/17/2023 Abstract [facility] [address] [facility] 110 [place] [address] Scotty Reza MD [address] [facility] 110 [place] [address] Social History Tobacco Use Types Packs/Day Years [...] on filedocumented in this encounter Care Teams Fuels Engineer Relationship Specialty Start Date End Date Scotty Reza MD [address] [facility] 110 [place] [address] PCP - General Family Medicine 12/04/22 documented as of this encounter
--- OUTSIDE RECORDS SUMMARY | 2025-02-01 07:38 | XMS_ITS | Encounter Summary ---
Author Organization [facility] Address [address] [place] [address] Care Team Providers Care Supervisor Sample Name Role Phone Scotty Reza MD Primary Care Provider [phone] Encounter Details Date Type Department Care Team (Late st Contact Info) Description 01/28/2023 Orders Only [facility] [address] [place] [address] [place] [address] A, Unknown Practice [address] [place], [place] [id number] Social History Tobacco Use Types Packs/Day Years [...] Procedure Name Priority Date/Time Associated Diagnosis Comments US RENAL DOPPLER Routine 01/28/2023 12:54 PM EDT documented in this encounter Results * US RENAL DOPPLER (01/28/2023 12:54 PM EDT) Anatomical Region Laterality Modality Radiographic Mindy ging us Unknown Practice A IMG XR PROCEDURES Final Resul t documented in this encounter Visit Diagnoses Not on filedocumented in this encounter Care Teams Supervisor Sample Relationship Specialty Start Date End Date Scotty Reza MD [address] [place] [address] [place] [address] PCP - General Family Medicine 12/04/22 documented as of this encounter
--- OUTSIDE RECORDS SUMMARY | 2025-02-01 07:38 | XMS_ITS | Encounter Summary ---
Author Organization Javi Sujata [facility] Address [address] [place] [address] Care Team Providers Care Field Project Manager Name Role Phone Scotty Reza MD Primary Care Provider [phone] Reason for Referral * Other (Routine) - Closed Specialty Diagnoses / Procedures Referred By Contac t Referred To Contact Radiology Diagnoses Screening mammogram for breast cancer Procedures SAUMYA GERTRUDIS DIGITAL SCREEN BILATERAL Scotty Reza MD Phone: tel: fax: Referral ID Status Reason Start Date Expiration Date Visits Re quested Visits Authorized [id number] Closed 05/01/2022 05/01/2023 1 1 Encounter Details Date Type Department Care Team (Late st Contact Info) Description 05/01/2022 Transcribe Orders [facility] [address] [place] [address] Scotty Reaz MD [address] [place] [address] Screening mammogram for breast cancer (Primary Dx) Social History Tobacco Use Types Packs/Day Years [...] as of this encounter Plan of Treatment Scheduled Orders Name Type Priority Associated Diagnoses Orde r Schedule SAUMYA GERTRUDIS DIGITAL SCREEN BILATERAL Imaging Routine Screening mammogram for breast cancer Expected: 05/01/2022, Expires: 07/01/2023 documented as of this encounter Visit Diagnoses Diagnosis Screening mammogram for breast cancer- Primary documented in this encounter Care Teams Field Project Manager Relationship Specialty Start Date End Date Scotty Reza MD PCP - General 10/03/12 documented as of this encounter
--- OUTSIDE RECORDS SUMMARY | 2025-02-01 07:38 | XMS_ITS | Encounter Summary ---
Author Organization Javi Sujata [facility] Address [address] [place] [address] Care Team Providers Care Telephone Messenger Name Role Phone Scotty Reza MD Primary Care Provider [phone] Encounter Details Date Type Department Care Team (Latest Contact Info) Description 11/07/2021 Transcribe Orders [facility] [address] [place] [address] Candi George MD Pulmonary fibrosis (HCC) (Primary Dx) Social History Tobacco Use Types [...] as of this encounter Visit Diagnoses Diagnosis Pulmonary fibrosis (HCC)- Primary Postinflammatory pulmonary fibrosis documented in this encounter Care Teams Telephone Messenger Relationship Specialty Start Date End Date Scotty Reza MD PCP - General 10/03/12 documented as of this encounter
--- OUTSIDE RECORDS SUMMARY | 2025-02-01 07:38 | XMS_ITS | Encounter Summary ---
Author Organization [facility] Address [address] [place] [address] Care Team Providers Care Buggy Loader Name Role Phone Scotty Reza MD Primary Care Provider [phone] Encounter Details Date Type Department Care Team ([facility] Contact Info) Description 12/28/2024 Abstract [facility] [address] [facility] [address] [place] [id number] Scotty Reza MD [address] [facility] [address] [place], [place] [id number] Social History Tobacco Use Types Packs/Day Years [...] week 08/30/2024 How often do you attend jain or anglican serv ices? Never 08/30/2024 Do you belong to any clubs o r organizations such as jain groups, unions, fraternal or athletic groups, or [...] and heating? Not hard at all 08/30/2024 [facility] - [...] any time in the past 12 m [facility], were you homeless or living in a [facility]p (including now)? No 08/30/2024 Comments Unknown Sex and Gender Information Value Date Recorded Sex Assigned at Not on file Legal Sex Female 7:17 PM EDT Gender Identity Not on file Sexual Orientation Not on file documented as of this encounter Plan of Treatment Not on file documented as of this encounter Visit Diagnoses Not on filedocumented in this encounter Care Teams Buggy Loader Relationship Specialty Start Date End Date Scotty Reza MD [address] [facility] [address] [place] [address] PCP - General Family Medicine 12/04/22 documented as of this encounter
--- OUTSIDE RECORDS SUMMARY | 2025-02-01 07:38 | XMS_ITS | Clinical Summary ---
Author Organization [facility] Healthcare Address [address] [place] [address] Care Team Providers Care Tile Roofer Name Role Phone Scotty Martinez MD Primary Care Provider [phone] Allergies Active Allergy Reactions Criticality Noted Date Comments Amoxicillin Rash Low 08/02/2023 Amoxicillin-Pot Clavulanate Rash Low 08/02/19 24 Medications hydroCHLOROthiazid e (HYDRODiuril) 25 MG tablet 1 (one) time each day at the same time Active hydroxychloroquine (Plaquenil) 200 MG tablet TAKE 1 TABLET BY MOUTH EVERY OTHER DAY ALTERNATE WITH 1 TAB TWICE A DAY EVERY OTHER DAY. TAKE WITH FOOD, YEARLY EYE EXAM. 3 Active tolterodine LA (Detrol LA) 4 MG 24 hr capsule Take 4 mg by mouth in the morning and 4 mg before bedtime. 3 Active sulfaSALAzine (Azulfidine) 500 MG EC tablet Take 1,000 mg by mouth in the morning and 1,000 mg before bedtime. 3 Active aspirin 81 MG EC tablet Take 81 mg by mouth in the morning. Active cholecalciferol (Vitamin D-3) 125 MCG (5000 UT) tablet Take 5,000 Units by mouth in the morning. Active ferrous sulfate 325 (65 Fe) MG tablet Take 325 mg by mouth in the morning. Take with meals. Active loratadine (Claritin) 10 MG tablet Take 1 tablet by mouth Daily Active omeprazole (PriLOSEC) [address] capsule Take 20 mg by mouth in the morning and 20 mg in the evening. Take before meals. Active tadalafil (Cialis) 20 MG tablet 2 tabs daily 4 Active ambrisentan (Letairis) 5 MG tablet Take 5 mg by mouth in the morning. 4 Active atorvastatin (Lipitor) 40 MG tabletIndications: Hyperlipidemia, unspecified hyperlipidemia type TAKE 1 TABLET BY MOUTH IN THE MORNING 100 tablet 3 5 Active lisinopril 10 MG tabletIndications: Benign essential hypertension Take 1 tablet by mouth once daily 100 tablet 3 5 Active NIFEdipine XL (Procardia XL) 60 MG 24 hr tabletIndications: Benign essential hypertension Take 1 tablet by mouth once daily 100 tablet 3 5 Active carvedilol (Coreg) 6.25 MG tabletIndications: Benign essential hypertension Take 1 tablet by mouth twice daily with food 200 tablet 3 5 Active celecoxib (CeleBREX) 200 MG capsuleIndications :Rheumatoid arthritis in remission (HCC) TAKE 1 CAPSULE BY MOUTH ONCE DAILY WITH FOOD 100 capsule 3 5 Active furosemide (Lasix) 20 MG tabletIndications: Edema, unspecified type TAKE 1 TABLET BY MOUTH TWICE DAILY IN THE MORNING AND BEFORE BEDTIME 200 tablet 3 5 Active Active Problems Problem Noted Date Diagnosed Date Myalgia 08/08/2023 Myopathy 08/08/2023 Wellness examination 08/06/2023 Assessment & Plan (08/31/2024 9:02 AM EST): Modest Alcohol consumption No Tobacco Seat Belt use Exercise Regularly No Text Drive Social Accountability Assessment & Plan (08/06/2023 8:59 AM EST): Modest Alcohol consumption No Tobacco Seat Belt use Exercise Regularly No Text Drive Social Accountability Acquired hallux valgus 08/02/2023 Age-related osteoporosis wit hout current pathological fracture 08/02/2023 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 We made recommendations on how to control your blood pressure, and minimize your risk of these copmplications. We also discussed your current barriers to a healthy living and importance of healthy diet and exercise. Prior to your visit today we have reviewed your chart and formed a plan to assist with providing you the best possible care. We reviewed the possible complications of hypertension including, stroke, heart failure and kidney impairment. In addition, we discussed your medications, the importance of taking them as prescribed. DASH diet handouts Idiopathic gout 08/02/2023 ILD (interstitial lung disease) 08/02/2023 Peripheral venous insufficiency 08/02/2023 Primary pulmonary hypertension 08/02/2023 Pulmonary fibrosis, unspecified 08/02/2023 Pulmonary hypertension 08/02/2023 Raynaud disease 08/02/2023 Reflux gastritis 08/02/2023 Systemic sclerosis, unspecified 08/02/2023 Assessment & Plan (08/31/2024 9:02 AM EST): F/Up with rheumatology Assessment & Plan (08/06/2023 8:56 AM EST): F/U with rheumatology F/U with Cardiology every 6 months Stage 3a chronic kidney disease 08/02/2023 Assessment & Plan (08/06/2023 8:55 AM EST): Increase fluids Avoid ibuprofen Stage 3b chronic kidney disease 08/02/2023 Rheumatoid arthritis involvi ng multiple sites with positive rheumatoid factor 08/02/2023 Assessment & Plan (08/31/2024 9:02 AM EST): Follow up rheumatology Rheumatoid arthritis in remission 01/24/2023 Shortness of breath 09/21/2022 Arthropathy 03/26/2017 Atrial fibrillation 02/13/2013 Assessment & Plan (08/31/2024 9:03 AM EST): This is a chronic medical condition that is stable since last assessment. No changes in treatment are suggested at this time. Continue Current meds. Chest pain 02/13/2013 Coronary artery disease invo lving [place] coronary artery of [place] heart without angina pectoris 02/13/2013 Coronary atherosclerosis 02/13/2013 Deficiency anemia 08/28/2011 Hyperlipidemia 08/27/2011 Overview (08/06/2023): LDL 103 Encounters Date Type Department Care Team Description 12/28/2024 Abstract [facility] [address] [place] [phone] Scotty Martinez MD 12/24/2024 Clinisync Result Encounter [facility] External Department Unsolicited Provider, Generic External Data 12/06/2024 Refill [facility] [address] [place] [phone] Scotty Martinez MD Benign essential hypertension ; Rheumatoid arthritis in remission (HCC); Edema, unspecified type 11/23/2024 Clinisync Result Encounter [facility] External Department Unsolicited Provider, Generic External Data from Last 3 Months Immunizations Immunization Administration Dates Next Due Influenza, injectable, quadrivalent 05/14/2018,1 Influenza, injectable, quadr ivalent, preservative free 05/22/2022,05/22/2021,05/20/2020 Pneumococcal Conjugate PCV 13 10/12/2016 SARS-CoV-2, Unspecified 10/27/2020 Tdap 08/31/2018,10/12/2016,10/19/2015 Zoster, live 01/28/2016 Family History Medical History Relation Name Comments Cancer Brother Benton Martinez Colon cancer Brother Benton Martinez Diabetes Father Maylin Martinez Hypertension Father Maylin Martinez Stroke Father Maylin Martinez Cancer Mother Brenda Martinez Hypertension Mother Brenda Martinez Down syndrome Son Relation Name Status Comments Brother Benton Martinez Father Maylin Martinez Mother Brenda Martinez Son Social History Tobacco Use Types Packs/Day Years [...] week 08/30/2024 How often do you attend episcopal or religion serv ices? Never 08/30/2024 Do you belong to any clubs o r organizations such as episcopal groups, unions, fraternal or athletic groups, or [...] and heating? Not hard at all 08/30/2024 [facility] - [...] time in the past 12 m [facility], were you homeless or living in a alf (including now)? No 08/30/2024 Comments Unknown Sex and Gender Information Value Date Recorded Sex Assigned at Not on file Legal Sex Female 7:17 PM EDT Gender Identity Not on file Sexual Orientation Not on file Last Filed Vital Signs Vital Sign Reading Time Taken Comments Blood Pressure 118/82 08/31/2024 8:53 AM EST Pulse 64 08/31/2024 8:53 AM EST Temperature - - Respiratory Rate - - Oxygen Saturation 98% 08/31/2024 8:53 AM EST Inhaled Oxygen Concentration - - Weight 76.7 kg (169 lb) 08/31/2024 8:53 AM EST Height 154.9 cm (5' 1 ) 08/31/2024 8:53 AM EST Body Mass Index 31.93 08/31/2024 8:53 AM EST Plan of Treatment Health Maintenance Due Date Last Done Comments CT Colonography 1965 Colonoscopy 1965 FIT 1965 FOBT 1965 Sigmoidoscopy 1965 HPV/Cotest 1994 Influenza Vaccine (#1) 2025 2, 05/22/2021, 05/20/2020, Additional history exists Mammogram 09/11/2025 09/11/2024, 07/29, 08/14/2023, Additional history exists Cervical Cancer Screening 08/13/2026 Pap Smear 08/13/2026 08/13/2023 Colorectal Cancer Screening 08/19/2026 FIT-DNA 08/19/2026 08/19/2023 Procedures Procedure Name Priority Date/Time Associated Diagnosis Comments CT CHEST HIGH RESOLUTION 12/24/2024 9:14 AM EDT ALL SED RATE Routine 11/23/2024 7:57 AM EDT [facility] CREATININE Routine 11/23/2024 7:57 AM EDT [facility] LIVER PANEL Routine 11/23/2024 7:57 AM EDT ALL CBC WITH AUTO DIFF Routine 7:57 AM EDT MM TOMOSYNTHESIS SCREENING BI 09/11/2024 10:58 AM EST LAB COLOGUARD COLON CANCER SCREEN Routine 08/19/2023 7:45 PM EST Screening for malignant neoplasm of colon from Last 3 Months or Most Recently Relevant to Health Maintenance Results * CT CHEST HIGH RESOLUTION (12/24/2024 9:14 AM EDT) Anatomical Region Laterality Modality Radiographic Mindy ging 12/24/2024 9:14 AM EDT Narrative 12/24/2024 9:17 AM EDT [address] [address] [address] Scan Report Signed Patient: SYLVIA MCCRARY MR#: [id number] : 1965 Acct:[id number] Age/Sex: 59 / F ADM Date: 12/24/24 Loc: CT Attending Dr: Non-Staff Physician Antonella Ordering Physician: Cande RamonStaff Antonella Date of Service: 12/24/24 Procedure(s): CT chest high res Accession Number(s): [id number] cc: SCOTTY MARTINEZ [address] [address] Patient Name: SYLVIA MCCRARY MRN: [facility]:[id number] date: 1965 Sex: F Assigned Patient Location: CT Current Patient Location: CT Accession/Order Number: [id number] Exam Date: 12/24/2024 09:06 Report Date: 12/24/2024 09:14 At the request of: NON-STAFF PHYSICIAN Procedure: CT chest high res HIGH-RESOLUTION CT CHEST WITHOUT CONTRAST COMPARISON: 11/28/2020 CLINICAL DATA: History of pulmonary hypertension, pulmonary fibrosis and scleroderma. Spiral axial unenhanced images were obtained to the chest. Images were reconstructed at 1 mm sections at 10 mm increments. High-resolution imaging was also performed in prone position. Images were reviewed using both narrow and wide window settings. This CT exam was performed using one or more following dose reduction techniques: Automated exposure control, adjustment of the mA and/or kV according to patient size, or use of iterative reconstruction technique. The heart is top normal in size. There is no pericardial effusion. Coronary disease is seen. No aortic aneurysm is noted. There are no enlarged lymph nodes. A tiny hiatal hernia is present. Endplate spurring is visualized at the spine. There is minor atelectasis and/or scarring. No focal consolidation is noted. No obstructive lung disease is seen. Mild interstitial thickening is again seen at the lower lungs, left slightly greater than right. No pneumothorax is seen. There is a tiny calcified granuloma at the right posterior costophrenic angle. Limited imaging through the upper abdomen shows small suspected hepatic cysts. CT/CT chest high res IMPRESSION: SIMILAR MILD FIBROTIC APPEARING CHANGES AT THE LOWER LUNGS. NO ACUTE ABNORMALITY. Impression dictated by: Kindra Winter M.D. 12/24/2024 9:14 AM Dictation Location: [place] [address] Electronically authenticated by: [id number] Y Date: 12/24/2024 09:14 Dictated By: Kindra Winter M.D. Signed By: 12/24/24916 DD/ 3 TD/TT: [employer] Staff Officer: Procedure Note Radiology, Radiologist, - 12/24/[address] [place] [id number] CT Scan Report Signed Patient: SYLVIA MCCRARY [facility]#: [id number] : 1965Acct:[id number] Age/Sex: 59 / FADM Date: 12/24/24 Loc: CT Attending Dr: Rico Ramon M.D. Ordering Physician: Rico Ramon M.D. Date of Service: 12/24/24 Procedure(s): CT chest high res Accession Number(s): [id number] cc: SCOTTY MARTINEZ [place] [id number] Patient Name: SYLVIA MCCRARY MRN: [facility]:[id number] date: 1965 Sex: F Assigned Patient Location: CT Current Patient Location: CT Accession/Order Number: [id number] Exam Date: 12/24/2024 09:06 Report Date: 12/24/2024 09:14 At the request of: EDER-STAFF PHYSICIAN JIMENEZ Procedure: CT chest high res HIGH-RESOLUTION CT CHEST WITHOUT CONTRAST COMPARISON: 11/28/2020 CLINICAL DATA: History of pulmonary hypertension, pulmonary fibrosis and scleroderma. Spiral axial unenhanced images were obtained to the chest. Images were reconstructed at 1 mm sections at 10 mm increments. High-resolutionimaging was also performed in prone position. Images were reviewed using bothnarrow and wide window settings. This CT exam was performed using one or more following dose reduction techniques: Automated exposure control,adjustment of the mA and/or kV according to patient size, or use of iterativereconstruction technique. The heart is top normal in size. There is no pericardial effusion.Coronary disease is seen. No aortic aneurysm is noted. There are no enlargedlymph nodes. A tiny hiatal hernia is present. Endplate spurring is visualizedat the spine. There is minor atelectasis and/or scarring. No focal consolidation isnoted. No obstructive lung disease is seen. Mild interstitial thickening isagain seen at the lower lungs, left slightly greater than right. Nopneumothorax is seen. There is a tiny calcified granuloma at the right posteriorcostophrenic angle. Limited imaging through the upper abdomen shows small suspected hepaticcysts. CT/CT chest high res IMPRESSION: SIMILAR MILD FIBROTIC APPEARING CHANGES AT THE LOWER LUNGS. NO ACUTE ABNORMALITY. Impression dictated by: Kindra Winter M.D. 12/24/2024 9:14 AM Dictation Location: [place] [address] Electronically authenticated by: [id number] Y Date: 9:14 Dictated By: Kindra Winter M.D. Signed By:12/24/24916 DD/ 3 TD/TT: [employer] Staff Officer: Generic External Data Provider IMG XR PROCEDURES Final Result * (ABNORMAL) [facility] CREATININE (11/23/2024 7:57 AM EDT) CREATININE 1.43(H) 0.55 - 1.02 mg/dL TBH TBH EGFR-AF NIUEAN 45(L) >=60 mL/min/1.7 3m 2 TBH TBH EGFR-NON AF NIUEAN 37(L) >=60 mL/min/1.7 3m 2 TBH 11/23/2024 7:57 AM EDT 11/23/2024 7:58 AM EDT Narrative CLINISYNC - 11/23/2024 9:02 AM EDT Generic External Data Provider CLINISYNC F inal Result [facility] * (ABNORMAL) [facility] LIVER PANEL (11/23/2024 7:57 AM EDT) BILIRUBIN TOTAL 0.2 0.2 - 1.0 mg/dL TBH BILIRUBIN DIRECT 0.1 0.0 - 0.2 mg/dL TBH ASPARTATE AMINO TRANSFERASE 20 15 - 37 U/L TBH ALANINE AMINOTRANSFERASE 12(L) 14 - 59 U/L TBH ALKALINE PHOSPHATASE 133(H) 46 - 116 U/L TB TOTAL PROTEIN 7.1 6.4 - 8.2 g/dL TBH ALBUMIN LEVEL 3.7 3.4 - 5.0 g/dL TBH GLOBULIN 3.4 g/dL TBH ALBUMIN GLOBULIN RATIO 1.1 TBH 11/23/2024 7:57 AM EDT 11/23/2024 7:58 AM EDT Narrative CLINISYNC - 11/23/2024 9:02 AM EDT Generic External Data Provider CLINISYNC F inal Result [facility] * ALL SED RATE (11/23/2024 7:57 AM EDT) [facility] SED RATE 9 <=30 mm/hr TB 11/23/2024 7:57 AM EDT 11/23/2024 7:58 AM EDT Narrative CLINISYNC - 11/23/2024 11:51 AM EDT Generic External Data Provider CLINISYNC F inal Result [facility] * ALL CBC WITH AUTO DIFF (11/23/2024 7:57 AM EDT) [facility] WBC 8.9 4.0 - 11.0 10 3/uL TBH TB RBC 4.48 4.20 - 5.40 10 6/uL TBH TB HGB 12.9 12.0 - 16.0 g/dL TB TB HCT 39.0 36.0 - 48.0 % TB TB MCV 87.1 81.0 - 99.0 fL TB TB MCH 28.8 26.7 - 34.0 pg TB TB MCHC 33.1 29.9 - 35.2 g/dL TB TB RDW 12.7 11.0 - 15.0 % TB TB PLT 264 150 - 450 10 3/uL TB TB MPV 9.6 9.5 - 13.5 fL TB NEUTROPHILS PERCENT AUTO 57.1 43.0 - 75.0 % TBH LYMPHOCYTES PERCENT AUTO 31.6 20.5 - 60.0 % TBH MONOCYTES PERCENT AUTO 7.4 1.7 - 12.0 % TBH TBH EO % 3.0 0.9 - 7.0 % TBH BASOPHILS PERCENT AUTO 0.7 0.2 - 2.0 % TB IMMATURE GRANULOCYTES PCT AUTO 0.2 0.0 - 0.5 % TB NEUTROPHILS ABSOLUTE AUTO 5.1 1.4 - 6.5 10 3/uL TBH LYMPHOCYTES ABSOLUTE AUTO 2.8 1.2 - 3.8 10 3/uL TBH MONOCYTES ABSOLUTE AUTO 0.7 0.3 - 0.8 10 3/uL TBH TBH EO # 0.3 0.0 - 0.7 10 3/uL TBH BASOPHILS ABSOLUTE AUTO 0.1 0.0 - 0.1 10 3/uL TBH IMMATURE GRANULOCYTES ABS AUTO 0.02 0.00 - 0.03 10 3/uL TBH 11/23/2024 7:57 AM EDT 11/23/2024 7:58 AM EDT Narrative CLINISYNC - 11/23/2024 8:36 AM EDT us Generic External Data Provider CL[facility]ISYNC F inal Result [facility] * MM TOMOSYNTHESIS SCREENING BI (09/11/2024 10:58 AM EST) Anatomical Region Laterality Modality Other 09/11/2024 10:5 8 AM EST Narrative 09/11/2024 10:59 [place] [address] Mammography Report Signed Patient: SYLVIA MCCRARY MR#: [id number] : 1965 Acct:[id number] Age/Sex: 59 / F ADM Date: 09/09/24 Loc: MAMMO Attending Dr: SCOTTY MARTINEZ Ordering Physician: SCOTTY MARTINEZ Results: Date of Service: 09/09/24 Follow Up: Procedure(s): MM tomosynthesis screening BI Accession Number(s): [id number] cc: SCOTTY MARTINEZ Patient Name: SYLVIA MCCRARY MR#: [id number] : 1965 Exam Date: 09/09/2024 Ordering Doctor: DR SCOTTY MARTINEZ M.D. RADIOLOGY [...] colon cancer at age 39. LOCATION: [facility] BREAST COMPOSITION: The breasts are heterogeneously [...] Signed By: 09/11/24 1059 DD/ 1058 TD/TT: [employer] Plans Staff Officer: Procedure Note Radiology, Radiologist, MD - 09/11/2024 [place] [address] Mammography Report Signed Patient: SYLVIA MCCRARY MMR#: [id number] : 1965Acct:[id number] Age/Sex: 59 / FADM Date: 09/09/24 Loc: MAMMO Attending Dr: SCOTTY MARTINEZ Ordering Physician: SCOTTY MARTINEZResults: Date of Service: 09/09/24Follow Up: Procedure(s): MM tomosynthesis screening BI Accession Number(s): [id number] cc: SCOTTY MARTINEZ Patient Name: SYLVIA MCCRARY MR#: [id number] : 1965 Exam Date: 09/09/2024 Ordering Doctor: DR SCOTTY MARTINEZ M.D. RADIOLOGY REPORT PROCEDURE: MM TOMOSYNTHESIS SCREENING BI COMPARISON: MM TOMOSYNTHESIS SCREENING BI, 08/14/2023. MG MAMM SCREENBIL W CAD, 01/24/2018. MG MAMM SCREEN LJ W CAD, 01/07/2017. MG MAMM LJ SCRNW CAD DIG, 11/20/2013. INDICATIONS: Screening Calculator Name NCI Breast Cancer Risk Assessment Tool 5 Year Breast Cancer Risk 1.20% Lifetime Breast Cancer Risk 5.00% Personal Breast Cancer No Personal Ovarian Cancer No Treatments None Family Cancers Mother with cervical cancer at age 70; Aunt-maternalwith colon cancer at age 40. LOCATION: [facility] BREAST COMPOSITION: The breasts are heterogeneously dense,which may obscure small masses. FINDINGS: DIAGNOSTIC CATEGORY 1--NEGATIVE. RIGHT BREAST: No significant suspicious finding. No significant changehas occurred. LEFT BREAST: No significant suspicious finding. No significant changehas occurred. RECOMMENDATIONS: ROUTINE MAMMOGRAM AND CLINICAL EVALUATION IN 12 MONTHS. PLEASE NOTE: A NORMAL MAMMOGRAM DOES NOT EXCLUDE THE POSSIBILITY OFBREAST CANCER. A CLINICALLY SUSPICIOUS PALPABLE LUMP SHOULD BE BIOPSIED. Dictated by: Lon Rudolph M.D. on 09/11/2024 at 10:55 Approved by: Lon Rudolph M.D. on 09/11/2024 at 10:58 Dictated By: Lon Rudolph M.D. Signed By:09/11/24 1059 DD/ 1058 TD/TT: [employer] Plans Staff Officer: Scotty Martinez MD [facility]IN[facility] IMAGING Final Result * Cologuard® colon cancer screening (08/19/2023 7:45 PM EST) NONINV COLON CA DNA+OCC BLD SCRN STL-IMP Negative Negative 08/28/2023 9:45 AM EST [employer] (CLIA #:[id number]) Comment: NEGATIVE TEST RESULT. A negative Cologuard result indicates a low likelihood that a colorectal cancer (CRC) or advanced adenoma (adenomatous polyps with more advanced pre-malignant features) is present. The chance that a person with a negative Cologuard test has a colorectal cancer is less than 1 in 1500 (negative predictive value >99.9%) or has an advanced adenoma is less than 5.3% (negative predictive value 94.7%). These data are based on a prospective cross-sectional study of 10,000 individuals at average risk for colorectal cancer who were screened with both Cologuard and colonoscopy. (Trini Wright, N Engl J Med 2014;370(14):1900-5383) The normal value (reference range) for this assay is negative. COLOGUARD RE-SCREENING RECOMMENDATION: Periodic colorectal cancer screening is an important part of preventive healthcare for asymptomatic individuals at average risk for colorectal cancer. Following a negative Cologuard result, the [employer] and U.S. Multi-Society Task Force screening guidelines recommend a Cologuard re-screening interval of 3 years. References: [employer] Guideline for Colorectal Cancer Screening: https://www.cancer.org/cancer/stbbc-jbbotd-zqpqms/wlwbumypu-xxsojjqsu-dljnosb/ac s-rec ommendations.html.; Jeremy DK, Jonathan CR, [place] DoK, Colorectal Cancer Screening: Recommendations for Physicians and Patients from the U.S. Multi-Society Task Force on Colorectal Cancer Screening , Am J Gastroenterology 2017; 112:9721-0719. TEST DESCRIPTION: Composite algorithmic analysis of stool DNA-biomarkers with hemoglobin immunoassay. Quantitative values of individual biomarkers are not reportable and are not associated with individual biomarker result reference ranges. Cologuard is intended for colorectal cancer screening of adults of either sex, 45 years or older, who are at average-risk for colorectal cancer (CRC). Cologuard has been approved for use by the U.S. FDA. The performance of Cologuard was established in a cross sectional study of average-risk adults aged 50-84. Cologuard performance in patients ages 45 to 49 years was estimated by sub-group analysis of near-age groups. Colonoscopies performed for a positive result may find as the most clinically significant lesion: colorectal cancer [4.0%], advanced adenoma (including sessile serrated polyps greater than or equal to 1cm diameter) [20%] or non- advanced adenoma [31%]; or no colorectal neoplasia [45%]. These estimates are derived from a prospective cross-sectional screening study of 10,000 individuals at average risk for colorectal cancer who were screened with both Cologuard and colonoscopy. (Trini Wright, N Engl J Med 2014;370(14):0393-2884.) Cologuard may produce a false negative or false positive result (no colorectal cancer or precancerous polyp present at colonoscopy follow up). A negative Cologuard test result does not guarantee the absence of CRC or advanced adenoma (pre-cancer). The current Cologuard screening interval is every 3 years. ([employer] and U.S. Multi-Society Task Force). Cologuard performance data in a 10,000 patient pivotal study using colonoscopy as the reference method can be accessed at the following location: www.Lyfepoints.Tribold/results. Additional description of the Cologuard test process, warnings and precautions can be found at www.cologuard.com. Stool specimen (specimen) 08/19/2023 7:45 PM EST 08/21/2023 9:49 AM EST Scotty Martinez MD LAB MOLECULAR DIAGNOSTICS ORDERA BLES Final Result Performing Organization Address City/State/[facility] Co de Phone Number .[employer] (CLIA #:[id number]) [address] [address], [place] [phone] [employer] (CLIA #:[id number]) [address] [place] [id number] from Last 3 Months or Most Recently Relevant to Health Maintenance Insurance [employer] Care Teams Tile Roofer Relationship Specialty Start Date End Date Scotty Martinez MD [address] [facility] [address] [place] [address] PCP - General Family Medicine 12/04/22
[2025-02-01 08:10] LABS: Hematocrit 37.5 % (36.0-48.0); Hemoglobin 12.4 g/dL (12.0-16.0); Immature Granulocytes Abs Auto 0.02 10^3/uL (0.00-0.03); Immature Granulocytes Pct Auto 0.3 % (0.0-0.5); Lymphocytes Absolute Auto 2.3 10^3/uL (1.2-3.8); Mean Corpuscular HGB Conc 33.1 g/dL (29.9-35.2); Mean Corpuscular Hemoglobin 29.2 pg (26.7-34.0); Mean Corpuscular Volume 88.2 fL (81.0-99.0); Platelet Count 210 10^3/uL (150-450); Red Blood Count 4.25 10^6/uL (4.20-5.40); White Blood Count 7.6 10^3/uL (4.0-11.0)
[2025-02-01 08:21] LABS: Alanine Aminotransferase 20 U/L (14-59); Albumin Globulin Ratio 1.1; Albumin Level 3.7 g/dL (3.4-5.0); Alkaline Phosphatase 114 U/L (46-116); Aspartate Amino Transferase 24 U/L (15-37); Estimated GFR (African America >60 (>=60 mL/min/1.73m^2); Estimated GFR (Non-African Ame >60 (>=60 mL/min/1.73m^2); Globulin 3.4 g/dL; Total Protein 7.1 g/dL (6.4-8.2)
== END 2025-02-01 07:35 | disposition home or self-care (01) ==
LOC: LAB 07:35
PROVIDERS: PCP Family Medicine; Visit Provider Internal Medicine Rheumatology
DX: M05.79 Rheumatoid arthritis with rheumatoid factor of multiple sites without organ or systems involvement (principal); Z79.899 Other long term (current) drug therapy
CPT/HCPCS: 36415; 80076; 82565; 85025; 85652

== ENCOUNTER 2025-04-26 07:37 | Outpatient (OUT) | payer OTHER, SELFPAY ==
--- OUTSIDE RECORDS SUMMARY | 2025-04-16 08:38 | XMS_ITS ---
Author Name Auto Generated Organization OHIP Care Team Providers Care Granulator Machine Operator Name Role Phone FLORY PRUITT Attending Unavailable FLORY PRUITT Referring Unavailable FLORY PRUITT Attending Unavailable FLORY PRUITT Referring Unavailable FLORY PRUITT Attending Unavailable JOSEFA MARTINEZ Attending Unavailable Frank JOE Attending Unavailable PROBLEMS DATE TYPE CONDITION / CODE ATTENDING STATUS [facility] 11/06/2024 Admitting Diagnosis Dyspnea, unspecified / R06.00(ICD-10) NA Active [facility] 07/14/2024 Admitting Diagnosis Follow-up / 608384() FLORY PRUITT Active [facility] PROCEDURES No Procedure Records Found RESULTS 36 Observed: 04/16/2025 11:44 AM Status: COMPLETED Source: [facility] Prior authorization request for Ambrisentan 10mg. Prior authorization processed and submitted to patient's insurance, awaiting determination from insurance in response to medication coverage. Cover My Meds Blanc# [id number] PROGRESS Observed: 04/16/2025 9:00 AM Status: COMPLETED Source: [facility] Roberta Zavala is a 59 y.o. year old female patient being seen for pulmonary arterial hypertension. Patient functional capacity was limited while she was off her medication due to insurance issues. She was started on tadalafil and she is already feeling better. Her Ambrisentan was approved, but she did not receive it yet. Patient Active Problem List Diagnosis Arthropathy Atrial fibrillation (CMS/HCC) Chest pain Coronary artery disease involving mcgrath coronary artery of mcgrath heart without angina pectoris Deficiency anemia Essential hypertension Hyperlipidemia Pulmonary HTN (CMS/HCC) Systemic scleroses (CMS/HCC) Shortness of breath WHO group 1 pulmonary arterial hypertension ([facility]/HCC) Acquired hallux valgus Age-related osteoporosis without current pathological fracture Chronic ulcer of left foot with fat layer exposed (CMS/HCC) Contracture, left ankle Idiopathic gout ILD (interstitial lung disease) (CMS/HCC) Myalgia Myopathy Peripheral venous insufficiency Pulmonary fibrosis ([facility]/HCC) Raynaud disease Reflux gastritis Rheumatoid arthritis in remission ([facility]/HCC) Stage 3a chronic kidney disease ([facility]) Wellness examination Family History Problem Relation Name Age of Onset Hypertension Mother Hypertension Father Social History Tobacco Use Smoking status: Former Types: Cigarettes Smokeless tobacco: Never Vaping Use Vaping status: Never Used Substance Use Topics Alcohol use: Not Currently Drug use: Not Currently Review of Systems Cardiovascular: Positive for dyspnea on exertion. Negative for chest pain, leg swelling and palpitations. Respiratory: Negative for cough, shortness of breath and wheezing. All other systems reviewed and are negative. Objective Visit Vitals OB Status Postmenopausal Smoking Status Former Physical Exam Physical Exam BP 110/70 BP Location Left arm Patient Position Sitting BP Cuff Size Adult Heart Rate 63 Weight 73.5 kg (162 lb) Height 1.524 m (5') SpO2 93 The physical examination was conducted in the presence of a psychologist clinical. Constitutional: Appearance: Normal appearance. HENT: Head: Normocephalic [...] tabs daily, Disp: 180 tablet, Rfl: 3 tadalafil (Cialis) 20 mg [...] get approval for Lateris, and denied Macitantan. Unfortunately she did not receive the tablets yet. I am going to asked multiple people to address this issue as soon as possible. I will see her in 6 months, I will get an echocardiogram at that time and hopefully her parameter will be improved by that time on her 2 medication. #coronary atherosclerosis No angina Moderate single-vessel disease on medical therapy # Hypertension Controlled, continue current medication. #systemic sclerosis per rheumatology#rheumatoid arthritis per rheumatology#lung disease with systemic sclerosis per rheumatology OFFICE VISIT Observed: 04/16/2025 9:00 AM Status: COMPLETED Source: [facility] [id number] [facility] Provider Department Center 04/16/2025 FLORY [place]IS Family History Problem Relation Age of Onset Hypertension Mother Hypertension Father Family Status - Relation Status Age at Mother Father Level of Service:34827 [place] OFFICE/OUTPATIENT ESTABLISHED MOD MDM 30 MIN OFFICE VISIT Observed: 11/06/2024 9:00 AM Status: COMPLETED Source: [facility] [id number] MeganPaolo weston Provider Department Center 11/06/2024 FLORY [place] Family History Problem Relation Age of Onset Hypertension Mother Hypertension Father Family Status - Relation Status Age at Mother Father Level of Service:50574 [place] OFFICE/OUTPATIENT ESTABLISHED MOD MDM 30 MIN () PROGRESS Observed: 11/06/2024 9:00 AM Status: COMPLETED Source: [facility] Attestation signed by Flory Pruitt MD at [...] (CMS/HCC) Chest pain Coronary artery disease involving mcgrath coronary artery of mcgrath heart without angina pectoris Deficiency anemia Essential [...] #systemic sclerosis per rheumatology#rheumatoid arthritis per rheumatology ABSTRACT Observed: 11/06/2024 12:00 AM Status: COMPLETED Source: [facility] [id number] [place],Earlynn [facility] Provider Department [place] 11/06/2024 [id number] BUSTOS Family History Problem Relation Age of Onset Hypertension Mother Hypertension Father Family Status - Relation Status Age at Mother Father ABSTRACT Observed: 11/06/2024 12:00 AM Status: COMPLETED Source: [facility] [id number] [place],Earlynn Provider Department [place] 11/06/2024 3244BENNY BUSTOS Family History Problem Relation Age of Onset Hypertension Mother Hypertension Father Family Status - Relation Status Age at Mother Father ABSTRACT Observed: 11/06/2024 12:00 AM Status: COMPLETED Source: [facility] [id number] [place],Earlynne Provider Department [place] 11/06/2024 3244BENNY BUSTOS Family History Problem Relation Age of Onset Hypertension Mother Hypertension Father Family Status - Relation Status Age at Mother Father ABSTRACT Observed: 11/06/2024 12:00 AM Status: COMPLETED Source: [facility] [id number] [place],Earlynne Date Provider Department [place] 11/06/2024 [id number] BUSTOS Family History Problem Relation Age of Onset Hypertension Mother Hypertension Father Family Status - Relation Status Age at Mother Father ABSTRACT Observed: 11/06/2024 12:00 AM Status: COMPLETED Source: [facility] [id number] Sylvia Zavala F Date Provider Department Center 11/06/2024 324BENNY ZAMAN Family History Problem Relation Age of Onset Hypertension Mother Hypertension Father Family Status - Relation Status Age at Mother Father ABSTRACT Observed: 11/06/2024 12:00 AM Status: COMPLETED Source: [facility] [id number] Sylvia Zavala F Date Provider Department Center 11/06/2024 3244BENNY BUSTOS Family History Problem Relation Age of Onset Hypertension Mother Hypertension Father Family Status - Relation Status Age at Mother Father LIPID PANEL, STANDARD Collected: 08/31/2024 9:30 AM Status: F Source: [facility] Order Comment: FASTING:YES FASTING: YES TYPE CODE TESTS RESULT OUT OF RANGE REFERENCE UNITS LAB [id number] CHOLESTEROL, TOTAL 174 Normal <200 mg/dL LAB [id number] HDL CHOLESTEROL 80 Normal > OR = 50 mg/dL LAB [id number] TRIGLYCERIDES 81 Normal <150 mg/dL LAB [id number] LDL-CHOLESTEROL 78 Normal mg/dL (calc) Result Comment: Reference ra nge: <100 Desirable range <100 mg/dL for primary prevention; <70 mg/dL for patients with CHD or diabetic patients with > or = 2 CHD risk factors. LDL-C is now calculated using the Oren-Natividad calculation, which is a validated novel method providing better accuracy than the Friedewald equation in the estimation of LDL-C. Oren SS et al. [place]. 2013;310(19): 8031-9406 (http://education.Onstream Media.Ocapi/faq/FXC453) LAB [id number] CHOL/HDLC RATIO 2.2 Normal <5.0 (calc) LAB [id number] NON HDL CHOLESTEROL 94 Normal <130 mg/dL (calc) Result Comment: For patients with diabetes plus 1 major ASCVD risk factor, treating to a non-HDL-C goal of <100 mg/dL (LDL-C of <70 mg/dL) is considered a therapeutic option. Performed By: #### 7600, 102 31 #### [facility] [place] [address] , [address] [place] [address] Supervisor Plate Forming: Jomar Pham MD COMPREHENSIVE METABOLIC PANEL Collected : 08/31/2024 9:30 AM Status: F Source: [facility] TYPE CODE TESTS RESULT OUT OF RANGE REFERENCE UNITS LAB [id number] GLUCOSE 82 Normal 65-99 mg/dL Result Comment: Fasting reference interval LAB [id number] UREA NITROGEN (BUN) 17 Normal 7-25 mg/dL LAB [id number] CREATININE 0.88 Normal 0.50-1.05 mg/dL LAB [id number] EGFR 75 Normal > OR = 60 mL/min/1 .73m2 LAB [id number] BUN/CREATININE RATIO SEE NOTE: 6-22 (calc) Result Comment: Not Reported : BUN and Creatinine are within reference range. LAB [id number] SODIUM 141 Normal 135-146 mmol/L LAB [id number] POTASSIUM 3.4 Low 3.5-5.3 mmol/L LAB [id number] CHLORIDE 105 Normal 98-110 mmol/L LAB [id number] CARBON DIOXIDE 25 Normal 20-32 mmol/L LAB [id number] CALCIUM 9.8 Normal 8.6-10.4 mg/dL LAB [id number] PROTEIN, TOTAL 7.0 Normal 6.1-8.1 g/dL LAB [id number] ALBUMIN 4.6 Normal 3.6-5.1 g/dL LAB [id number] GLOBULIN 2.4 Normal 1.9-3.7 g/dL (calc) LAB [id number] ALBUMIN/GLOBUL IN RATIO 1.9 Normal 1.0-2.5 (calc) LAB [id number] BILIRUBIN, TOTAL 0.4 Normal 0.2-1.2 mg/dL LAB [id number] ALKALINE PHOSPHATASE 97 Normal 37-153 U/L LAB [id number] AST 22 Normal 10-35 U/L LAB [id number] ALT 11 Normal 6-29 U/L Performed By: #### 7600, 102 31 #### [facility] [address], [address] [place] [address] Supervisor Plate Forming: Jomar Pham MD AMBULATORY VISIT SUMMARY Observed: 08/14 9:16 AM Status: F Source: [facility] Ambulatory Visit Summary SYLVIA MCCRARY :1965 Visit Date:08/14/2024 Ambulatory Visit Instructions Your [...] Frank JOE MD Where: [facility] [address] [place] [address]- You Need to Schedule the Following Appointments Follow Up with Frank JOE MD, URL When: Where: [address] [place] [address]- Medications What How Much When Instructions Changed tolterodine (tolterodine 4 mg Cap-ER) 1 Capsules By Mouth As Directed Take 2 tabs in the AM and 1 tab in the evening. Pickup at [facility] 162 Unchanged aspirin (aspirin 81 mg Chew Tab) [...] physician if questions or concerns Pharmacy Information [facility] 1622: [address] [place], [place] [id number] [phone] Allergies Augmentin (Rash) amoxicillin (Rash) Problems Ongoing [...] health care provider. General instructions ??? Take crjn-ymr-qiniafe and prescription medicines only as told by [...] provider. Document Revised: 04/03/2021 Document Reviewed: 04/03/2021 [employer] Patient Education ??? 2023 [employer]. UROLOGY OFFICE/CLINIC NOTE Observed: 8:59 AM Status: F Source: [facility] Urology Office/Clinic Note Chief Complaint OAB HPI [...] Contact Information JUNIOR JIMENEZ, Frank Lea, URL [address] [place], [place] [address]- Additional Instructions: 1 year Patient Education Overactive [...] Recorded SARS-CoV-2 (COVID-19) Ad26 vaccine 11/15/2020 Recorded Moose SARS-CoV-2 (COVID-19) Ad26 vaccine 10/14/2020 Recorded 2023-02-04: [...] Protein Urine Dipstick: Negative (08/14/24 08:24:00) Specific Evant Urine Dipstick: 1.020 (08/14/24 08:24:00) Urine Appearance Urine Dipstick: Clear (08/14/24 08:24:00) Urine Color Urine Dipstick: Yellow (08/14/24 08:24:00) Urobilinogen Urine Dipstick: Normal 0.2-1 EU/dl (08/14/24 08:24:00) pH Urine Dipstick: 5.5 (08/14/24 08:24:00) Result Comment: Electronical ly Signed By: Frank JOE MD\.br\Date and Time Signed: 08/14/24 09:01 EST\.br\Electronically Co-Signed By: Kayli Garrido.br\Date and Time Co-Signed: 08/14/24 09:00 EST PATIENT EDUCATION Observed: 08/14/2024 8:59 AM Status: F Source: [facility] Patient Education Obstetrics and Gynecology Overactive Bladder, [...] health care provider. General instructions ??? Take qith-sxm-jviethc and prescription medicines only as told by [...] provider. Document Revised: 04/03/2021 Document Reviewed: 04/03/2021 [employer]Kapost Patient Education ? 2023 [employer] PROGRESS Observed: 07/14/2024 9:20 AM Status: COMPLETED Source: [facility] Roberta Zavala is a 59 y.o. year [...] (CMS/HCC) Chest pain Coronary artery disease involving mcgrath coronary artery of mcgrath heart without angina pectoris Deficiency anemia Essential [...] Observed: 07/14/2024 9:20 AM Status: COMPLETED Source: [facility] [id number] Sylvia Zavala F Date Provider Department Center 07/14/2024 [facility]FLORY PRUITT [facility] Family History Problem Relation Age of Onset Hypertension Mother Hypertension Father Family Status - Relation Status Age at Mother Father Level of Service:16954 [place] OFFICE/OUTPATIENT ESTABLISHED MOD MDM 30 MIN Reason for Visit and Comments: Follow-up [217359] ALLERGIES DATE TYPE / CODE NAME / CODE REACTION SEVERITY SOURCE 01/29/2013 DRUG/[id number] (SNOMED CT) AMOXICILLIN-POT CLAVULANATE [facility] /[id number](S NOMED CT) amoxicillin [id number] [facility] /[id number](S NOMED CT) Augmentin Rash [facility] ENCOUNTERS ADMIT/DISCHARGE ACCOUNT NUMBER ADMITTING ENCOUNTER CLASS LOCATION SOURCE 04/16/2025/ 5 [id number] Ambulatory Building:[facility] 11/06/2024/ 5 [id number] Ambulatory Building:[facility] 11/06/2024/ 5 [id number] Ambulatory Building:[facility] 08/31/2024/ 5 [id number] Ambulatory Building:[facility] 08/14/2024/ 5 [id number] Ambulatory [place]:SANDOR FigueroaueRoom : Exam 3 [facility] 07/14/2024/ 4 [id number] Ambulatory Building:[facility] PAYERS ENCOUNTER GUARANTOR PAYER SUBSCRIBER SOURCE 04/16/2025 Primary Insurance:HEALTHSCOPEPo licy Number: [id number] Date:2022-07-29 RAÚLELAN ALDAROMDOB: [id number] [place] [address] [facility] 11/06/2024 Primary Insurance:HEALTHSCOPEPo licy Number: [id number] Date:2022-07-29 SYLVIA ALDAROMDOB: [id number] [place] [address] [facility] 11/06/2024 Primary Insurance:HEALTHSCOPEPo licy Number: [id number] Date:2022-07-29 SYLVIA ALDAROMDOB: [id number] [place] [address] [facility] 08/31/2024 SYLVIA Ari ALDAROMDOB: [place] [address]Aco: () Primary Insurance:HEALTHSCOPEPo licy Number: [id number] Date:2022-07-29 PAOLOSam Chapman ALDAROMDOB: [id number] [place] [address] [facility] 08/14/2024 SYLVIA Chapman MICHELLE-ROMDOB: AP[address] STTel: ~~( 40 (HP) Primary Insurance:Healthscope BenefitsPolicy Number: [id number] Date:2024-08-13P Britany [place] [address], [place] [address]ID: SYLVIA FLOREZ [facility] 07/14/2024 [facility]: [id number] Date:2022-07-29 SYLVIA ZAVALADOB: [id number] [place] [address] [facility]
--- OUTSIDE RECORDS SUMMARY | 2025-04-16 09:00 | XMS_ITS | Encounter Summary ---
Author Organization [facility] Address [address] [place] [address] Care Team Providers Care Semiconductor Packages Platemaker Name Role Phone Scotty Reza MD Primary Care Provider [phone] Encounter Details Date Type Department Care Team ([facility] Contact Info) Description 04/16/2025 9:00 AM EDT Office Visit [facility] Cardiology [address] [place] [phone] Flory Umaña MD [address] [place] [id number] WHO group 1 pulmonary arterial hypertension (CMS/HCC) (Primary Dx); Coronary artery disease involving northern cheyenne coronary artery of northern cheyenne heart without angina pectoris; Essential hypertension; Systemic scleroses (CMS/HCC); Pulmonary arterial hypertension (CMS/HCC) Social History Tobacco Use Types Packs/Day Years Used Date Smoking Tobacco: Former Cigarettes Smokeless Tobacco: Never Alcohol Use Standard Drinks/Week Comments Not Currently 0 (1 standard drink = 0.6 oz pur e alcohol) [place] Safety & Environment Answer Date Rec orded Fear of Current or Ex-Partner Not on file Emotionally Abused Not on file 09/19/2023 Physically Abused Not on file 09/19/2023 Sexually Abused Not on file 09/19/2023 Physically or Sexually Abused Not on file Comments No Sex and Gender Information Value Date Recorded Sex Assigned at Female 04/16/2025 7:56 AM EDT Legal Sex Female 9:33 PM EDT Gender Identity Female 04/16/2025 7:56 AM EDT Sexual Orientation Don't know 04/16/2025 7: 56 AM EDT documented as of this encounter Last Filed Vital Signs Vital Sign Reading Time Taken Comments Blood Pressure 110/70 04/16/2025 8:46 AM EDT Pulse 63 04/16/2025 8:46 AM EDT Temperature - - Respiratory Rate - - Oxygen Saturation 93% 04/16/2025 8:46 AM EDT Inhaled Oxygen Concentration - - Weight 73.5 kg (162 lb) 04/16/2025 8:46 AM EDT Height 152.4 cm (5') 04/16/2025 8:46 AM EDT Body Mass Index 31.64 04/16/2025 8:46 AM EDT documented in this encounter Progress Notes * Flory Umaña MD - 04/16/2025 9:00 AM EDT Images from the original note were not included. Subjective Lexi Moon is a 59 y.o. year old female patient being seen for pulmonary arterial hypertension. Patient functional capacity was limited while she was off her medication due to insurance issues. She was started on tadalafil and she is already feeling better. Her Ambrisentan was approved, but shedid not receive it yet. Patient Active Problem List Diagnosis Arthropathy Atrial fibrillation (CMS/HCC) Chest pain Coronary artery disease involving northern cheyenne coronary artery of northern cheyenne heart without angina pectoris Deficiency anemia Essential [...] was conducted in the presence of a conditioning coach. Constitutional: Appearance: Normal appearance. HENT: Head: Normocephalic [...] by mouth as directed by study team. Takes1 tablet oral every other day alternating with [...] by mouth in the morning and at bedtime.,Disp: , Rfl: tadalafil (Cialis) 20 mg tablet, [...] CALCIUM 9.9 10/03/2022 Imaging and other tests C 12/18/2023 Hemodynamic Data: RA: 4 RV: 67/3, [...] Controlled, continue current medication. #systemic sclerosis per rheumatology #rheumatoid arthritis per rheumatology #lung disease with systemic sclerosis per rheumatology documented in this encounter Plan of Treatment Not on file documented as of this encounter Visit Diagnoses Diagnosis WHO group 1 pulmonary arterial hypertension (CMS/HCC)- Primary Coronary artery disease involving northern cheyenne coronary artery of northern cheyenne heart without angina pectoris Essential hypertension Unspecified essential hypertension Systemic scleroses (CMS/HCC) Systemic sclerosis Pulmonary arterial hypertension (CMS/HCC) documented in this encounter Care Teams Semiconductor Packages Platemaker Relationship Specialty Start Date End Date Scotty Reza MD [address] [place] [address] PCP - General 2/22/23 documented as of this encounter
--- OUTSIDE RECORDS SUMMARY | 2025-04-26 07:40 | XMS_ITS | Clinical Summary ---
Author Organization [facility] Address [address], [address] [place] [address] Care Team Providers Care Retention Representative Name Role Phone Scotty Reza MD Primary Care Provider [phone] Allergies Active Allergy Reactions Criticality Noted Date [...] 50+ years Vaccine (2 of 2 - PCV20 or PCV21) 10/12/2017 10/12/2016 Breast cancer screen 01/25/2020 01/24/2018, 01/25/20 18 Flu vaccine (#1) 02/26/2025 05/22/2022, , 05/20/2020, Additional history exists COVID-19 Vaccine (4 - 2024- season) 2025 08/16/2021, 10/27/2020, 10/14/2020 DTaP/Tdap/Td vaccine (4 - Td or Tdap) [...] - 0.90 mg/dL 06/11/2022 7:29 AM EST [facility] Est, Glom Filt Rate 32(L) >60 mL/min/1.7 3m2 06/11/2022 7:29 AM EST [facility] Comment: Effective Apr 30, 2022 These [...] ORDERABLES Final R esult Performing Organization Address City/[facility]/ZIP Co de Phone Number [facility] [address] [place], [place] [address] [phone] * Lipid panel (10/06/2012 7:09 AM EDT) Cholesterol 166 0 - 200 mg/dL 10/06/2012 8:08 AM EDT [facility] HDL 62 >50 mg/dL 10/06/2012 8:08 AM EDT [facility] Comment: Reference range: >= 60 Negative Risk Factor LDL Cholesterol 89 0 - 100 mg/dL 10/06/2012 8:08 AM EDT [facility] Comment: Direct (measured) LDL and calculated LDL are not interchangeable tests. Chol/HDL Ratio 3.0 1.0 - 5.0 10/06/2012 8:08 AM EDT [facility] Triglycerides 75 0 - 150 mg/dL 10/06/2012 8:08 AM EDT [facility] VLDL 15 6 - 30 mg/dL 10/06/2012 8:08 AM EDT [facility] Comment: Performed at [address] [place] [address] 10/06/2012 7:09 AM EDT 10/06/2012 7:10 AM EDT us Scotty Reza MD CHEMISTRY ORDERABLES Final Resul t Performing Organization Address [facility] Co de Phone Number [facility] [address] [place], [place] [address] [phone] [facility] * (ABNORMAL) Occult Blood Diagnostic (08/30/2011 7:35 AM EST) Fecal Occult Blood, POC POSITIVE(A ) NEG [facility] Comment: Performed at [address] [place] [address] 08/30/2011 7:35 AM EST 08/30/2011 8:35 AM EST us Flory Umaña MD BODY FLUIDS AND STOOLS ORDERAB LES Final Result [facility] from Last 3 Months or Most Recently Relevant to Health Maintenance Insurance [employer] Care Teams Retention Representative Relationship Specialty Start Date End Date Scotty Reza MD PCP - General 10/03/12
--- OUTSIDE RECORDS SUMMARY | 2025-04-26 07:40 | XMS_ITS | Encounter Summary ---
Author Organization [facility] Address [address] [place] [address] Care Team Providers Care Public Health Sanitarian Name Role Phone Scotty Reza MD Primary Care Provider [phone] Encounter Details Date Type Department Care Team ([facility] Contact Info) Description 08/14/2023 Orders Only [facility] [address] [place] [address] A, Unknown Practice [address] [place], [place] [address] Social History Tobacco Use Types Packs/Day Years [...] on filedocumented in this encounter Care Teams Public Health Sanitarian Relationship Specialty Start Date End Date Scotty Reza MD [address] [address] PCP - General Family Medicine 12/04/22 documented as of this encounter
--- OUTSIDE RECORDS SUMMARY | 2025-04-26 07:40 | XMS_ITS | Encounter Summary ---
Author Organization [facility] Address [address] [place] [address] Care Team Providers Care Hand Crown Pouncer Name Role Phone Scotty Reza MD Primary Care Provider [phone] Encounter Details Date Type Department Care Team ([facility] st Contact Info) Description 12/15/2023 Clinisync Result [...] on filedocumented in this encounter Care Teams Hand Crown Pouncer Relationship Specialty Start Date End Date Scotty Reza MD [address] [place] [address] PCP - General Family Medicine 12/04/22 documented as of this encounter
--- OUTSIDE RECORDS SUMMARY | 2025-04-26 07:40 | XMS_ITS | Encounter Summary ---
Author Organization [facility] Address [address] [place] [address] Care Team Providers Care Butcher'S Assistant Name Role Phone Scotty Reza MD Primary Care Provider [phone] Encounter Details Date Type Department Care Team ([facility] Contact Info) Description 03/04/2024 Orders Only [facility] [place] [facility] [address] [place] [address] Unallocated, Noms Provider, [address] [place] [address] Social History Tobacco Use Types Packs/Day Years [...] on filedocumented in this encounter Care Teams Butcher'S Assistant Relationship Specialty Start Date End Date Scotty Reza MD [address] [place] [address] PCP - General Family Medicine 12/04/22 documented as of this encounter
--- OUTSIDE RECORDS SUMMARY | 2025-04-26 07:40 | XMS_ITS | Encounter Summary ---
Author Organization [facility] Address [address] [facility] [place] [address] Care Team Providers Care Biztalk Administrator Name Role Phone Scotty Reza MD Primary Care Provider [phone] Encounter Details Date Type Department Care Team (Late st Contact Info) Description 12/17/2023 Abstract [facility] [place] [facility] [address] [facility] 110 [place] [address] Scotty Reza MD [address] [facility] 110 [place] [address] Social History Tobacco Use Types Packs/Day Years [...] on filedocumented in this encounter Care Teams Biztalk Administrator Relationship Specialty Start Date End Date Scotty Reza MD [address] [place] [address] PCP - General Family Medicine 12/04/22 documented as of this encounter
--- OUTSIDE RECORDS SUMMARY | 2025-04-26 07:40 | XMS_ITS | Encounter Summary ---
Author Organization [facility] Address [address] [facility] [place] [address] Care Team Providers Care Fusing Machine Feeder Name Role Phone Scotty Reza MD Primary Care Provider [phone] Encounter Details Date Type Department Care Team (Late st Contact Info) Description 12/18/2023 Abstract [facility] [place] [facility] [address] [facility] 110 [place] [address] Scotty Reza MD [address] [facility] 110 [place] [address] Social History Tobacco Use Types Packs/Day Years [...] on filedocumented in this encounter Care Teams Fusing Machine Feeder Relationship Specialty Start Date End Date Scotty Reza MD [address] [place] [address] PCP - General Family Medicine 12/04/22 documented as of this encounter
--- OUTSIDE RECORDS SUMMARY | 2025-04-26 07:40 | XMS_ITS | Encounter Summary ---
Author Organization [facility] Address [address] [place] [address] Care Team Providers Care Apprentice Painter Brush Name Role Phone Scotty Reza MD Primary Care Provider [phone] Encounter Details Date Type Department Care Team ([facility] Contact Info) Description 09/04/2023 Orders Only [facility] [place] [facility] [address] [place] [address] Unallocated, Noms Provider, [address] [place] [address] Social History Tobacco Use Types Packs/Day Years [...] on filedocumented in this encounter Care Teams Apprentice Painter Brush Relationship Specialty Start Date End Date Scotty Reza MD 112 [facility] 110 [place] [address] PCP - General Family Medicine 12/04/22 documented as of this encounter
--- OUTSIDE RECORDS SUMMARY | 2025-04-26 07:40 | XMS_ITS | Encounter Summary ---
Author Organization [facility] Address [address] [facility] [place] [address] Care Team Providers Care Senior Mechanical Technician Name Role Phone Scotty Reza MD Primary Care Provider [phone] Encounter Details Date Type Department Care Team (Late st Contact Info) Description 08/31/2024 Abstract [facility] [place] [facility] [address] [facility] 110 [place] [address] Scotty Reza MD 112 [facility] 110 [place] [address] Social History Tobacco Use Types Packs/Day Years [...] week 08/30/2024 How often do you attend yarsani or catholic serv ices? Never 08/30/2024 Do you belong to any clubs o r organizations such as yarsani groups, unions, fraternal or athletic groups, or [...] and heating? Not hard at all 08/30/[address] [facility] [place] of Occupat ional Health - Occupational Stress [...] time in the past 12 m [facility], were you homeless or living in [...] on filedocumented in this encounter Care Teams Senior Mechanical Technician Relationship Specialty Start Date End Date Scotty Reza MD 112 [place] [address] PCP - General Family Medicine 12/04/22 documented as of this encounter
--- OUTSIDE RECORDS SUMMARY | 2025-04-26 07:40 | XMS_ITS | Encounter Summary ---
Author Organization [facility] Address [address] [facility] [place] [address] Care Team Providers Care Maintenance Of Way Superintendent Name Role Phone Scotty Reza MD Primary Care Provider [phone] Encounter Details Date Type Department Care Team (Late st Contact Info) Description 12/30/2023 Abstract [facility] [place] [facility] [address] [facility] 110 [place] [address] Scotty Reza MD [address] [facility] 110 [place] [address] Social History Tobacco Use Types Packs/Day Years [...] on filedocumented in this encounter Care Teams Maintenance Of Way Superintendent Relationship Specialty Start Date End Date Scotty Reza MD [address] [place] [address] PCP - General Family Medicine 12/04/22 documented as of this encounter
--- OUTSIDE RECORDS SUMMARY | 2025-04-26 07:41 | XMS_ITS | Clinical Summary ---
Author Organization [facility] Address [address] [place] [address] Care Team Providers Care Rough Rounder Name Role Phone Scotty Reza MD Primary Care Provider [phone] Allergies Active Allergy Reactions Criticality Noted Date [...] Active Additional Information Patient not taking.Reported on 04/16/2025 macitentan (Opsumit) 10 mg tabletIndication s:Pulmonary HTN (CMS/HCC) Take 10 mg by mouth in the morning. 90 tablet 3 4 Active Additional Information Patient not taking.Reported on 04/16/2025 atorvastatin (Lipitor) 40 mg tablet Take 40 mg by mouth in the morning. Active ambrisentan (Letairis) 5 mg tabletIndication s:Pulmonary hypertension (CMS/HCC) Take 1 tablet (5 mg) by mouth in the morning. Do not crush, chew, or split. 30 tablet 3 4 Active tadalafil (Cialis) 20 mg tabletIndication s:Pulmonary HTN (CMS/HCC) 2 tabs daily 180 tablet 3 4 Active tadalafil (Cialis) 20 mg tabletIndication s:Pulmonary HTN (CMS/HCC) Take 1 tablet (20 mg) by mouth in the morning. 90 tablet 3 5 02/02/20 26 Active ambrisentan (Letairis) 10 mg tabletIndication s:Pulmonary HTN (CMS/HCC) Take 1 tablet (10 mg) by mouth in the morning. Do not crush, chew, or split. 30 tablet 11 5 04/16/20 26 Active Active Problems Problem Noted Date Diagnosed Date Pulmonary arterial hypertension 09/03/2023 Myalgia 08/08/2023 Myopathy 08/08/2023 Wellness examination 08/06/2023 [...] pain 02/13/2013 Coronary artery disease invo lving mentasta coronary artery of mentasta heart without angina pectoris 02/13/2013 Deficiency anemia 08/28/2011 Essential hypertension 08/27/2011 Hyperlipidemia 08/27/2011 Encounters Date Type Department Care Team Description 04/16/2025 9:00 AM EDT Office Visit [facility] Cardiology [address] [place] [address] Flory Umaña MD WHO group 1 pulmonary arterial hypertension (CMS/HCC) (Primary Dx); Coronary artery disease involving mentasta coronary artery of mentasta heart without angina pectoris; Essential hypertension; Systemic scleroses (CMS/HCC); Pulmonary arterial hypertension (CMS/HCC) 04/16/2025 [facility] Medicine [address] [place] [address] [place] [phone] Ivanna Cowan Prior Authorization (Ambrisentan) 04/16/2025 Orders Only [facility] Cardiology [address] [place] [address] Ilda Marcano MA Pulmonary HTN (CMS/HCC) (Primary Dx) 04/16/2025 Refill [facility] Cardiology [address] [place] [phone] Ilda Marcano MA Pulmonary HTN (CMS/HCC) 02/01/2025 Refill [facility] Cardiology [address] [place] [address] Jen Mccormick MA Pulmonary HTN (CMS/HCC) from Last 3 Months Family History Medical [...] Don't know 04/16/2025 7: 56 AM EDT Last Filed Vital Signs Vital Sign Reading Time Taken Comments Blood Pressure 110/70 04/16/2025 8:46 AM EDT Pulse 63 04/16/2025 8:46 AM EDT Temperature - - Respiratory Rate 14 11/06/2024 8:56 AM EDT Oxygen Saturation 93% 04/16/2025 8:46 AM EDT Inhaled Oxygen Concentration - - Weight 73.5 kg (162 lb) 04/16/2025 8:46 AM EDT Height 152.4 cm (5') 04/16/2025 8:46 AM EDT Body Mass Index 31.64 04/16/2025 8:46 AM EDT Plan of Treatment Health Maintenance Due Date Last Done Comments CT Colonography 1965 Colonoscopy 1965 FOBT 1965 Sigmoidoscopy 1964 Depression Screening 1976 Pap Smear 1985 Cervical Cancer Screening 1994 HPV/Cotest 1994 Mammogram 2004 FIT 08/19/2024 08/19/2023 COVID-19 Vaccine ( season) 2025 08/16/2021, 10/27/2020, 10/14/2020 Influenza Vaccine (#1) 2025 2, 05/22/2021, 05/20/2020, Additional history exists Colorectal Cancer Screening 08/19/2026 FIT-DNA 08/19/2026 08/19/2023 Adult Tetanus 08/31/2028 08/31/2018, 09/26, 10/19/2015 Pneumococcal Vaccine: Pediatrics (0 to 5 Years) and At-Risk Patients (6 to 64 Years) Completed 11/13/2024, 10/12/2016 Zoster Vaccines Completed 01/12/2025, 10/27, 01/28/2016 HIB Vaccines Aged Out No longer eligi [...] on patient's age to complete this topic Insurance [employer] [place] [id number] Care Teams Rough Rounder Relationship Specialty Start Date End Date Scotty Reza MD [address] [place] [address] PCP - General 09/19/22
--- OUTSIDE RECORDS SUMMARY | 2025-04-26 07:41 | XMS_ITS | Encounter Summary ---
Author Organization [facility] Address [address] [facility] [place] [address] Care Team Providers Care Fishing Tool Supervisor Name Role Phone Scotty Reza MD Primary Care Provider [phone] Encounter Details Date Type Department Care Team (Late st Contact Info) Description 12/28/2024 Abstract [facility] [place] [facility] [address] [facility] 110 [place] [address] Scotty Reza MD [address] [facility] 110 [place] [address] Social History Tobacco Use Types Packs/Day Years [...] week 08/30/2024 How often do you attend yazidi or sikh serv ices? Never 08/30/2024 Do you belong to any clubs o r organizations such as yazidi groups, unions, fraternal or athletic groups, or [...] and heating? Not hard at all 08/30/2024 [facility] [place] of Occupat ional Health - Occupational Stress [...] any time in the past 12 m [facility], were you homeless or living in [...] on filedocumented in this encounter Care Teams Fishing Tool Supervisor Relationship Specialty Start Date End Date Scotty Reza MD 112 [place] [address] PCP - General Family Medicine 12/04/22 documented as of this encounter
--- OUTSIDE RECORDS SUMMARY | 2025-04-26 07:41 | XMS_ITS | Encounter Summary ---
Author Organization [facility] Address [address] [place] [address] Care Team Providers Care Prism Inspector Name Role Phone Scotty Reza MD Primary Care Provider [phone] Encounter Details Date Type Department Care Team (Late st Contact Info) Description 02/05/2023 Orders Only [facility] [place] [facility] [address] [place] [address] Provider, MD Liang [address] [place] [address] Social History Tobacco Use Types Packs/Day Years [...] on filedocumented in this encounter Care Teams Prism Inspector Relationship Specialty Start Date End Date Scotty Reza MD [address] [place] [address] PCP - General Family Medicine 12/04/22 documented as of this encounter
--- OUTSIDE RECORDS SUMMARY | 2025-04-26 07:41 | XMS_ITS | Encounter Summary ---
Author Organization [facility] Address [address] [place] [address] Care Team Providers Care Care Transitions Nurse Name Role Phone Scotty Reza MD Primary Care Provider [phone] Encounter Details Date Type Department Care Team ([facility] Contact Info) Description 04/16/2025 Orders Only [facility] Cardiology [address] [place] [phone] Ilda Marcano MA Pulmonary HTN (CMS/HCC) (Primary Dx) Social History Tobacco Use Types [...] AM EDT documented as of this encounter Plan of Treatment Not on file documented as of this encounter Visit Diagnoses Diagnosis Pulmonary HTN (CMS/HCC)- Primary documented in this encounter Care Teams Care Transitions Nurse Relationship Specialty Start Date End Date Scotty Reza MD 3 [facility] PCP - General 09/19/22 documented as of this encounter
--- OUTSIDE RECORDS SUMMARY | 2025-04-26 07:41 | XMS_ITS | Encounter Summary ---
Author Organization [facility] Address [address] [facility] [place] [address] Care Team Providers Care Chip Frier Name Role Phone Scotty Reza MD Primary Care Provider [phone] Encounter Details Date Type Department Care Team (Late st Contact Info) Description 08/07/2023 [facility] [place] [facility] [address] [facility] 110 [place] [address] Scotty Reza MD [address] [facility] 110 [place] [address] Social History Tobacco Use Types Packs/Day Years [...] on filedocumented in this encounter Care Teams Chip Frier Relationship Specialty Start Date End Date Scotty Reza MD [address] [place] [address] PCP - General Family Medicine 12/04/22 documented as of this encounter
--- OUTSIDE RECORDS SUMMARY | 2025-04-26 07:41 | XMS_ITS | Encounter Summary ---
Author Organization [facility] Address [address] [place] [address] Care Team Providers Care Regulatory And Compliance Technician Name Role Phone cSotty Reza MD Primary Care Provider [phone] Reason for Visit * Reason Onset Date Comments Prior Authorization 04/16/2025 Ambrisentan Encounter Details Date Type Department Care Team ([facility] st Contact Info) Description 04/16/2025 Telephone [facility] Family Medicine [address] [place] [address] Ivanna Cowan Prior Authorization (Ambrisentan) Social History Tobacco Use Types Packs/Day Years Used Date Smoking Tobacco: Former Cigarettes Smokeless Tobacco: Never Alcohol Use Standard Drinks/Week Comments Not Currently 0 (1 standard drink = 0.6 oz pur e alcohol) [place] Safety & Environment Answer Date Rec orded [...] AM EDT documented as of this encounter Miscellaneous Notes * Telephone Encounter - Ivanna Cowan - 04/16/2025 11:44 AM EDT Prior authorization request for Ambrisentan 10mg. Prior authorization processed and submitted to patient's insurance, awaiting determination from insurance in response to medication coverage. Cover My Meds Cardenas# [id number] documented in this encounter Plan of Treatment Not on file documented as of this encounter Visit Diagnoses Not on filedocumented in this encounter Care Teams Regulatory And Compliance Technician Relationship Specialty Start Date End Date Scotty Reza MD 3 [facility] PCP - General 09/19/22 documented as of this encounter
--- OUTSIDE RECORDS SUMMARY | 2025-04-26 07:41 | XMS_ITS | Encounter Summary ---
Author Organization [facility] Address [address] [place] [address] Care Team Providers Care Skate Maker Name Role Phone Scotty [place] MD Primary Care Provider [phone] Encounter Details Date Type Department Care Team (Late st Contact Info) Description 08/14/2023 Clinisync Result Encounter [facility] External Department Unsolicited Scotty [place] MD [address] [facility] 110 [place] [phone] Social History Tobacco Use Types Packs/Day Years [...] EST Narrative 08/14/2023 9:49 AM EST The [address] [address] Mammography Report Signed Patient: LEXI MCCRARY MR#: [id number] : 1965 Acct:[id number] Age/Sex: 58 / F ADM Date: 08/14/23 Loc: MAMMO Attending Dr: SCOTTY MARTINEZ Ordering Physician: SCOTYT MARTINEZ Results: Date of Service: 08/14/23 Follow Up: Procedure(s): MM tomosynthesis screening BI Accession Number(s): [id number] cc: MICHELLEYANIVALMA Patient Name: LEXI MCCRARY MR#: [id number] : 1965 Exam Date: 08/14/2023 Ordering Doctor: [...] colon cancer at age 39. LOCATION: [facility] BREAST COMPOSITION: Heterogeneously dense,which may obscure small [...] Antonio M.D. Signed By: 08/14/2349 DD/ TD/TT: Antique Collector: Procedure Note Radiology, RadiologistMD - 08/14/2023 [place] [address] Mammography Report Signed Patient: LEXI MCCRARY MMR#: [id number] : 1965Acct:[id number] Age/Sex: 58 / FADM Date: 08/14/23 Loc: MAMMO Attending Dr: SCOTTY MARTINEZ Ordering Physician: SCOTTY MARTINEZResults: Date of Service: 08/14/23Follow Up: Procedure(s): MM tomosynthesis screening BI Accession Number(s): [id number] cc: MICHELLESCOTTY Patient Name: LEXI MCCRARY MR#: [id number] : 1965 Exam Date: 08/14/2023 Ordering Doctor: [...] colon cancer at age 39. LOCATION: [facility] BREAST COMPOSITION: Heterogeneously dense,which may obscure smallmasses. [...] Chip Antonio M.D. Signed By:08/14/2349 DD/ TD/TT: Antique Collector: Scotty [place] MD [facility] Final Result documented in this encounter Visit Diagnoses Not on filedocumented in this encounter Care Teams Skate Maker Relationship Specialty Start Date End Date Scotty [place] MD [address] [place] [address] PCP - General Family Medicine 12/04/22 documented as of this encounter
--- OUTSIDE RECORDS SUMMARY | 2025-04-26 07:41 | XMS_ITS | Encounter Summary ---
Author Organization [facility] Address [address] [place] [address] Care Team Providers Care Accounts Collector Name Role Phone Scotty Reza MD Primary Care Provider [phone] Encounter Details Date Type Department Care Team (Late st Contact Info) Description 01/28/2023 Orders Only [facility] [place] [facility] [address] [place] [address] A, Unknown Practice [address] [place], [place] [phone] Social History Tobacco Use Types Packs/Day Years [...] on filedocumented in this encounter Care Teams Accounts Collector Relationship Specialty Start Date End Date Scotty Reza MD [address] [place] [address] PCP - General Family Medicine 12/04/22 documented as of this encounter
--- OUTSIDE RECORDS SUMMARY | 2025-04-26 07:41 | XMS_ITS | Encounter Summary ---
Author Organization [facility] Address [address] [facility], [address] [place] [address] Care Team Providers Care Transportation Engineering Technician Name Role Phone Scotty Reza MD Primary Care Provider [phone] Encounter Details Date Type Department Care Team (Latest Contact Info) Description 11/07/2021 Transcribe Orders [facility] [address] [place] [address] Candi George MD Pulmonary fibrosis (HCC) (Primary [...] fibrosis documented in this encounter Care Teams Transportation Engineering Technician Relationship Specialty Start Date End Date Scotty Reza MD PCP - General 10/03/12 documented as of this encounter
--- OUTSIDE RECORDS SUMMARY | 2025-04-26 07:41 | XMS_ITS | Encounter Summary ---
Author Organization [facility] Address [address] [place] [address] Care Team Providers Care Cad Application Support Specialist Name Role Phone Scotty Reza MD Primary Care Provider [phone] Reason for Visit * Reason Onset Date Comments Med Refill 04/16/2025 Encounter Details Date Type Department Care Team ([facility] Contact Info) Description 04/16/2025 Refill [facility] Cardiology [address] [place] [address] Ilda Marcano MA Pulmonary HTN (CMS/HCC) Social History Tobacco Use Types Packs/Day Years Used Date Smoking Tobacco: Former Cigarettes Smokeless Tobacco: Never Alcohol Use Standard Drinks/Week Comments Not Currently 0 (1 standard drink = 0.6 oz pur e alcohol) [place] Safety & Environment Answer Date Rec orded [...] this encounter Visit Diagnoses Diagnosis Pulmonary HTN (CMS/HCC) documented in this encounter Care Teams Cad Application Support Specialist Relationship Specialty Start Date End Date Scotty Reza MD [address] [facility] PCP - General 09/19/22 documented as of this encounter
--- OUTSIDE RECORDS SUMMARY | 2025-04-26 07:41 | XMS_ITS | Encounter Summary ---
Author Organization [facility] Address [address] [facility] [place] [address] Care Team Providers Care Mechanical Lead Name Role Phone Scotty Reza MD Primary Care Provider [phone] Reason for Referral * Other (Routine) - Closed Specialty Diagnoses / Procedures Referred By Contac t Referred To Contact Radiology Diagnoses Screening mammogram for breast cancer Procedures SAUMYA GERTRUDIS DIGITAL SCREEN BILATERAL Scotty Reza MD Phone: tel: fax: Referral ID Status Reason Start Date Expiration Date Visits Re quested Visits Authorized [id number] Closed 05/01/2022 05/01/2023 1 1 Encounter Details Date Type Department Care Team ([facility] Contact Info) Description 05/01/2022 Transcribe Orders [facility] Pre [facility] [address] [place] [address] Scotty Reza MD [address] [place] [address] Screening mammogram for breast cancer (Primary Dx) [...] Primary documented in this encounter Care Teams Mechanical Lead Relationship Specialty Start Date End Date Scotty Reza MD PCP - General 10/03/12 documented as of this encounter
--- OUTSIDE RECORDS SUMMARY | 2025-04-26 07:41 | XMS_ITS | Clinical Summary ---
Author Organization [facility] Healthcare Address [address] [place] [address] Care Team Providers Care Mosaic Tiler Name Role Phone Scotty Martinez MD Primary Care Provider [phone] Allergies Active Allergy Reactions Criticality Noted Date [...] pain 02/13/2013 Coronary artery disease invo lving [place] coronary artery of [place] heart without angina pectoris 02/13/2013 Coronary atherosclerosis 02/13/2013 Deficiency anemia 08/28/2011 Hyperlipidemia 08/27/2011 Overview (08/06/2023): LDL 103 Encounters Date Type Department Care Team Description 02/01/2025 Clinisync Result Encounter [facility]OMS External Department Unsolicited [...] week 08/30/2024 How often do you attend amish or holiness serv ices? Never 08/30/2024 Do you belong to any clubs o r organizations such as amish groups, unions, fraternal or athletic groups, or [...] and heating? Not hard at all 08/30/2024 [facility] Ideal of Occupat ional Health - Occupational Stress [...] any time in the past 12 m [facility], were you homeless or living [...] 1965 HPV/Cotest 1994 Influenza Vaccine (#1) 2025 , 05/22/2021, 05/20/2020, Additional history exists Mammogram 09/11/2025 09/11/2024, 07/29, 08/14/2023, Additional history exists Cervical Cancer Screening 08/13/2026 Pap Smear 08/13/2026 08/13/2023 Colorectal Cancer Screening 08/19/2026 FIT-DNA 08/19/2026 08/19/2023 Procedures Procedure Name Priority Date/Time Associated Diagnosis Comments TBH CREATININE Routine 02/01/2025 7:53 AM EDT [facility] LIVER PANEL Routine 02/01/2025 7:53 AM EDT ALL SED RATE Routine 02/01/2025 7:53 AM EDT ALL CBC WITH AUTO DIFF Routine 7:53 AM EDT MM TOMOSYNTHESIS SCREENING BI 09/11/2024 10:58 AM EST LAB COLOGUARD COLON CANCER SCREEN Routine 08/19/2023 7:45 PM EST Screening for malignant neoplasm of colon from Last 3 Months or Most Recently Relevant to Health Maintenance Results * TBH CREATININE (02/01/2025 7:53 AM EDT) CREATININE 0.86 0.55 - 1.02 mg/dL TBH TBH EGFR-AF PAK[place]ANI >60 >=60 mL/min/1.7 3m 2 TBH TBH EGFR-NON AF [place]ANI >60 >=60 mL/min/1.7 3m 2 TBH 02/01/2025 7:53 AM EDT 02/01/2025 7:54 AM EDT Narrative CLINISYNC - 02/01/2025 8:22 AM EDT Generic External Data Provider CLINISYNC F inal Result Performing Organization Address [facility] de Phone Number [facility] * [facility] LIVER PANEL (02/01/2025 7:53 AM EDT) BILIRUBIN TOTAL 0.2 0.2 - 1.0 mg/dL TBH BILIRUBIN DIRECT <0.1 0.0 - 0.2 mg/dL TBH ASPARTATE AMINO TRANSFERASE 24 15 - 37 U/L TBH ALANINE AMINOTRANSFERASE 20 14 - 59 U/L TB ALKALINE PHOSPHATASE 114 46 - 116 U/L TBH TOTAL PROTEIN 7.1 6.4 - 8.2 g/dL TBH ALBUMIN LEVEL 3.7 3.4 - 5.0 g/dL TBH GLOBULIN 3.4 g/dL TBH ALBUMIN GLOBULIN RATIO 1.1 TBH 02/01/2025 7:53 AM EDT 02/01/2025 7:54 AM EDT Narrative CLINISYNC - 02/01/2025 8:22 AM EDT Generic External Data Provider CLINISYNC F inal Result [facility] * ALL SED RATE (02/01/2025 7:53 AM EDT) [facility] SED RATE 10 <=30 mm/hr TB 02/01/2025 7:53 AM EDT 02/01/2025 7:54 AM EDT Narrative CLINISYNC - 02/01/2025 8:17 AM EDT us Generic External Data Provider CLINISYNC F inal Result [facility] * ALL CBC WITH AUTO DIFF (02/01/2025 7:53 AM EDT) [facility] WBC 7.6 4.0 - 11.0 10 3/uL TBH TB RBC 4.25 4.20 - 5.40 10 6/uL TBH TB HGB 12.4 12.0 - 16.0 g/dL TB TB HCT 37.5 36.0 - 48.0 % TB TB MCV 88.2 81.0 - 99.0 fL TB TB MCH 29.2 26.7 - 34.0 pg TB TB MCHC 33.1 29.9 - 35.2 g/dL TB TB RDW 14.0 11.0 - 15.0 % TB TB PLT 210 150 - 450 10 3/uL TB TB MPV 10.5 9.5 - 13.5 fL TB NEUTROPHILS PERCENT AUTO 56.2 43.0 - 75.0 % TB LYMPHOCYTES PERCENT AUTO 30.7 20.5 - 60.0 % TBH MONOCYTES PERCENT AUTO 9.0 1.7 - 12.0 % TBH TBH EO % 2.9 0.9 - 7.0 % TBH BASOPHILS PERCENT AUTO 0.9 0.2 - 2.0 % TB IMMATURE GRANULOCYTES PCT AUTO 0.3 0.0 - 0.5 % TB NEUTROPHILS ABSOLUTE AUTO 4.3 1.4 - 6.5 10 3/uL TBH LYMPHOCYTES ABSOLUTE AUTO 2.3 1.2 - 3.8 10 3/uL TBH MONOCYTES ABSOLUTE AUTO 0.7 0.3 - 0.8 10 3/uL TBH TBH EO # 0.2 0.0 - 0.7 10 3/uL TBH BASOPHILS ABSOLUTE AUTO 0.1 0.0 - 0.1 10 3/uL TBH IMMATURE GRANULOCYTES ABS AUTO 0.02 0.00 - 0.03 10 3/uL TBH 02/01/2025 7:53 AM EDT 02/01/2025 7:54 AM EDT Narrative CLINISYNC - 02/01/2025 8:14 AM EDT us Generic External Data Provider CLINISYNC F inal Result [facility] * MM TOMOSYNTHESIS SCREENING BI (09/11/2024 10:58 AM EST) Anatomical Region Laterality Modality Other 09/11/2024 10:5 8 AM EST Narrative 09/11/2024 10:59 [place] [address] Mammography Report Signed Patient: SYLVIA MCCRARY MR#: [id number] : 1965 Acct:[id number] Age/Sex: 59 / F ADM Date: 09/09/24 Loc: MAMMO Attending Dr: SCOTTY MARTINEZ Ordering Physician: SCOTTY MARTINEZ Results: Date of Service: 09/09/24 Follow Up: Procedure(s): MM tomosynthesis screening BI Accession Number(s): [id number] cc: MICHELLEYANIVALMA Patient Name: SYLVIA MCCRARY MR#: [id number] : 1965 Exam Date: 09/09/2024 Ordering Doctor: [...] colon cancer at age 39. LOCATION: [facility] BREAST COMPOSITION: The breasts are heterogeneously dense,which [...] Signed By: 09/11/24 1059 DD/ 1058 TD/TT: Fireproof Door Maker: Procedure Note Radiology, Radiologist, MD - 09/11/2024 [place] [address] Mammography Report Signed Patient: SYLVIA MCCRARY MMR#: [id number] : 1965Acct:[id number] Age/Sex: 59 / FADM Date: 09/09/24 Loc: MAMMO Attending Dr: SCOTTY MARTINEZ Ordering Physician: SCOTTY MARTINEZResults: Date of Service: 09/09/24Follow Up: Procedure(s): MM tomosynthesis screening BI Accession Number(s): [id number] cc: SCOTTY MARTINEZ Patient Name: SYLVIA MCCRARY MR#: [id number] : 1965 Exam Date: 09/09/2024 Ordering Doctor: [...] colon cancer at age 39. LOCATION: [facility] BREAST COMPOSITION: The breasts are heterogeneously dense,which [...] M.D. Signed By:09/11/24 1059 DD/ 1058 TD/TT: Fireproof Door Maker: Scotty Martinez MD [facility] IMAGING Final Result * Cologuard?? colon cancer screening (08/19/2023 7:45 PM EST) NONINV COLON CA DNA+OCC BLD SCRN STL-IMP Negative Negative 08/28/2023 9:45 AM EST [employer] (CLIA #:[id number]) Comment: NEGATIVE TEST RESULT. A negative Cologuard [...] screened with both Cologuard and colonoscopy. (Trini Macias al, N Engl J Med 2014;370(14):4719-3026) The normal value (reference range) for this assay is negative. COLOGUARD RE-SCREENING RECOMMENDATION: Periodic colorectal cancer screening is an important part of preventive healthcare for asymptomatic individuals at average risk for colorectal cancer. Following a negative Cologuard result, the [place] [employer] and U.S. Multi-Society Task Force screening guidelines recommend a Cologuard re-screening interval of 3 years. References: [place] [employer] Guideline for Colorectal Cancer Screening: https://www.cancer.org/cancer/kmjol-okzgez-ciehwf/vxxdnwtnr-qsppwmtrl-ybqfxlt/ac s-rec ommendations.html.; Jeremy DK, Jonathan BEY, [place] DoK, Colorectal Cancer Screening: Recommendations for Physicians and Patients from the U.S. Multi-Society Task Force on Colorectal Cancer Screening , Am J Gastroenterology 2017; 112:9347-8551. TEST DESCRIPTION: Composite algorithmic analysis of stool [...] colonoscopy. (Trini Wright, N Engl J Med 2014;370(14):7064-0659.) Cologuard may produce a false negative or false positive result (no colorectal cancer or precancerous polyp present at colonoscopy follow up). A negative Cologuard test result does not guarantee the absence of CRC or advanced adenoma (pre-cancer). The current Cologuard screening interval is every 3 years. ([place] [employer] and U.S. Multi-Society Task Force). Cologuard performance data in a 10,000 patient pivotal study using colonoscopy as the reference method can be accessed at the following location: www.[employer].com/results. Additional description of the Cologuard test process, warnings and precautions can be found at www.cologuard.com. Stool specimen (specimen) 08/19/2023 7:45 PM EST 08/21/2023 9:49 AM EST Scotty Martinez MD LAB MOLECULAR DIAGNOSTICS ORDERA GUERO Final Result [employer] (CLIA #:[id number]) [address] [place] [id number], [place] [phone] Clip (CLIA #:[id number]) [address] [place] [id number] from Last 3 Months or Most Recently Relevant to Health Maintenance Insurance [employer] Care Teams Mosaic Tiler Relationship Specialty Start Date End Date Scotty Martinez MD [address] [facility] [address] [place] [address] PCP - General Family Medicine 12/04/22
[2025-04-26 07:56] LABS: Glucose Urine UA NEGATIVE (NEGATIVE)
[2025-04-26 07:56] LABS: Hematocrit 39.1 % (36.0-48.0); Hemoglobin 13.1 g/dL (12.0-16.0); Immature Granulocytes Abs Auto 0.01 10^3/uL (0.00-0.03); Immature Granulocytes Pct Auto 0.1 % (0.0-0.5); Lymphocytes Absolute Auto 2.5 10^3/uL (1.2-3.8); Mean Corpuscular HGB Conc 33.5 g/dL (29.9-35.2); Mean Corpuscular Hemoglobin 29.1 pg (26.7-34.0); Mean Corpuscular Volume 86.9 fL (81.0-99.0); Platelet Count 270 10^3/uL (150-450); Red Blood Count 4.50 10^6/uL (4.20-5.40); White Blood Count 6.8 10^3/uL (4.0-11.0)
[2025-04-26 08:10] LABS: Cast Seen? NONE SEEN #/LPF (NONE SEEN); Crystals Seen? None Seen #/HPF (None Seen)
[2025-04-26 10:38] LABS: Alanine Aminotransferase 27 U/L (14-59); Albumin Globulin Ratio 1.1; Albumin Level 4.1 g/dL (3.4-5.0); Alkaline Phosphatase 99 U/L (46-116); Anion Gap 15.3; Aspartate Amino Transferase 33 U/L (15-37); Blood Urea Nitrogen 15.0 mg/dL (7.0-18.0); Calcium 9.3 mg/dL (8.5-10.1); Carbon Dioxide 27.8 mmol/L (21.0-32.0); Chloride 100 mmol/L (98-107); Estimated GFR (African America >60 (>=60 mL/min/1.73m^2); Estimated GFR (Non-African Ame 58 (>=60 mL/min/1.73m^2); Globulin 3.9 g/dL; Glucose 86 mg/dL (74-106); Potassium 3.1 mmol/L (3.5-5.1); Sodium 140 mmol/L (136-145); Total Protein 8.0 g/dL (6.4-8.2)
== END 2025-04-26 07:38 | disposition home or self-care (01) ==
LOC: LAB 07:38
PROVIDERS: PCP Family Medicine; Visit Provider Nurse Practitioner Family
DX: M05.79 Rheumatoid arthritis with rheumatoid factor of multiple sites without organ or systems involvement (principal); M35.9 Systemic involvement of connective tissue, unspecified; Z79.899 Other long term (current) drug therapy
CPT/HCPCS: 36415; 80053; 81001; 85025; 85652; 86140; 86160; 86162